=== PATIENT | female | born 1940 | race Caucasian/White ===

== ENCOUNTER → 2017-05-23 | Outpatient (CLI) | payer MEDICARE ==
--- NOTE | 2017-05-23 13:27 | US ---
EXAMINATION TYPE: US thyroid st tissue head/neck DATE OF EXAM: 05/23/2017 COMPARISON: NONE CLINICAL HISTORY: E04.1 Thyroid Nodule. Thyroid nodule visualized on recent Carotid ultrasound GLAND SIZE: Right Lobe: 4.8 x 2.2 x 1.9 cm Overall Parenchyma: heterogenous Left Lobe: 3.6 x 1.6 x 1.5 cm Overall Parenchyma: heterogeneous Isthmus Thickness: 0.3 cm NODULES RIGHT: # of nodules measured on right: 3 1. 0.7 X 0.4 x 0.7 cm mixed nodule at the upper pole with well-defined margins; . This nodule is w ider than tall and shows intranodular vascularity. Prior size: no prior 2. 0.6 X 0.3 x 0.6 cm hypoechoic solid nodule at the upper pole with well-defined margins; . This n odule is wider than tall and shows intranodular vascularity. Prior size: no prior 3. 0.7 X 0.6 x 0.7 cm complex cystic nodule at the lower pole with well-defined margins; . This nod ule is wider than tall and shows no intranodular vascularity. Prior size: no prior LEFT: # of nodules measured on left: 2 1. 0.6 X 0.4 x 0.5 cm complex cystic nodule at the medial/mid pole with well-defined margins; . Th is nodule is wider than tall and shows no intranodular vascularity. Prior size: no prior 2. 1.1 X 0.7 x 0.9 cm hypoechoic solid nodule at the mid pole with well-defined margins; . This nod ule is wider than tall and shows intranodular vascularity. Prior size: no prior ISTHMUS: # of nodules measured in the isthmus: 0 Technical limitations, patient unable to lie flat, exam performed with patient upright IMPRESSION: . Multiple nodules noted bilaterally, largest 3 measured on right and largest 2 measured on the left.
== END | disposition home or self-care (01) ==
LOC: RADUSWWP 12:01
PROVIDERS: ATTEND Family Medicine
DX: E04.2 Nontoxic multinodular goiter (principal)
CPT/HCPCS: 76536

== ENCOUNTER 2018-08-07 20:38 | Inpatient (IN) | payer MEDICARE ==
[2018-08-07] MEDS ORDERED: DILTIAZEM DRIP BOLUS FROM BAG 1 MG SOLN IV ONE ×2 (20:39→22:12)
[2018-08-07] MEDS ORDERED: SODIUM CHLORIDE 0.9% 1,000 ML IV STA (20:39)
[2018-08-07] MEDS: DILTIAZEM 125 MG in SODIUM CHLORIDE 0.9% 100 ML IV SCH (21:13)
[2018-08-07 21:18] LABS: Ionized Calcium 5.1 mg/dL (4.5-5.3)
[2018-08-07 21:19] LABS: Basophils % (A) 0 %; Eosinophils # (A) 0.2 k/uL (0-0.7); Eosinophils % (A) 2 %; HGB 13.8 gm/dL (11.4-16.0); Hypochromasia Slight; Lymphocytes # (A) 0.8 k/uL (1.0-4.8); Lymphocytes % (A) 6 %; MCHC 32.1 g/dL (31.0-37.0); MCV 90.4 fL (80.0-100.0); Mean Platelet Volume 9.1; Monocytes # (A) 0.4 k/uL (0-1.0); Monocytes % (A) 3 %; Neutrophils # (A) 11.8 k/uL (1.3-7.7); Neutrophils % (A) 88 %; Platelet Count 232 k/uL (150-450); RBC 4.76 m/uL (3.80-5.40); RDW 14.9 % (11.5-15.5); WBC 13.4 k/uL (3.8-10.6)
[2018-08-07 21:21] LABS: Appearance,Urine Cloudy (Clear); Bacteria,Urine Rare /hpf; Bilirubin,Urine Negative (Negative); Blood,Urine Moderate (Negative); Color,Urine Yellow; Glucose,Urine (UA) Negative (Negative); Ketones,Urine Negative (Negative); Leukocyte Esterase,Urine Moderate (Negative); Mucus,Urine Rare /hpf; Nitrite,Urine Negative (Negative); PH, Urine 7.5 (5.0-8.0); Protein,Urine 2+ (Negative); RBC,Urine >182 /hpf (0-5); Specific Gravity,Urine 1.018 (1.001-1.035); Squamous Epithelial Cell,Urine 6 /hpf (0-4); Urobilinogen,Urine <2.0 mg/dL (<2.0); WBC,Urine 25 /hpf (0-5)
[2018-08-07 21:27] LABS: Albumin 3.9 g/dL (3.5-5.0); Calcium 9.9 mg/dL (8.4-10.2); Magnesium 1.3 mg/dL (1.6-2.3); Phosphorus 3.5 mg/dL (2.5-4.5); Potassium 5.6 mmol/L (3.5-5.1); Total Bilirubin 1.1 mg/dL (0.2-1.3); Total Protein 7.3 g/dL (6.3-8.2)
[2018-08-07 21:31] LABS: INR 2.2 (<1.2); Partial Thromboplastin Time 27.4 sec (22.0-30.0); Prothrombin Time 21.3 sec (9.0-12.0)
--- NOTE | 2018-08-07 21:35 | ED ---
SOB HPI - General Chief Complaint: Shortness of Breath Stated Complaint: Difficulty breathing Time Seen by Provider: 08/07/18 20:38 Source: patient, EMS, RN notes reviewed, old records reviewed Mode of arrival: EMS - History of Present Illness Initial Comments: This is a 78-year-old female the ER for evaluation. Patient does say for evaluation regarding elevated heart rate. Shortness of breath. Patient is in nature fibrillation. Patient has no chest pain, no travel history. Patient is on current anticoagulation. Patient denies any fever. No significant cough. No congestion. MD Complaint: shortness of breath, anxiety -: days(s) Severity: moderate Consistency: constant Improves With: nothing Worsens With: nothing Associated Symptoms: palpitations Treatments Prior to Arrival: none - Related Data Home Medications Medication Instructions Recorded Confirmed Carvedilol [Coreg] 25 mg PO BID 05/08/17 08/07/18 Cholecalciferol [Vitamin D3] 5,000 unit PO DAILY 05/08/17 08/07/18 Ferrous Sulfate [Iron (65 MG 325 mg PO DAILY 05/08/17 08/07/18 Elemental)] Lisinopril [Zestril] 5 mg PO DAILY 05/08/17 08/07/18 Magnesium Oxide [Mag-Ox] 250 mg PO DAILY 05/08/17 08/07/18 Vitamin E (Dl,Tocopheryl Acet) 400 unit PO DAILY 05/08/17 08/07/18 [Vitamin E] Warfarin [Coumadin] 6 mg PO MOTUWEFRSA 05/08/17 08/07/18 Warfarin [Coumadin] 9 mg PO SUTH 05/08/17 08/07/18 glipiZIDE [Glucotrol] 10 mg PO QAM 05/08/17 08/07/18 metFORMIN HCL [Glucophage] 500 mg PO BID 05/08/17 08/07/18 Ascorbic Acid [Vitamin C] 500 mg PO DAILY 08/07/18 08/07/18 Calcium Carbonate [Calcium] 600 mg PO DAILY 08/07/18 08/07/18 Cranberry Concentrate 168 mg PO BID 08/07/18 08/07/18 Cyanocobalamin [Vitamin B-12] 500 mcg PO DAILY 08/07/18 08/07/18 Diltiazem HCl [Cartia Xt] 120 mg PO DAILY 08/07/18 08/07/18 Insulin Detemir (Levemir) [Levemir] 13 unit SQ HS 08/07/18 08/07/18 Previous Rx's Medication Instructions Recorded Atorvastatin [Lipitor] 10 mg PO HS tab 05/11/17 Allergies Allergy/AdvReac Type Severity Reaction Status Date / Time influenza virus vaccine qs Allergy Unknown Unknown Verified 08/07/18 21:14 2017- (36 months up) [From Fluarix Quad 5355-9780 (PF)] aspirin Allergy Unknown Verified 08/07/18 21:14 Penicillins Allergy Rash/Hives Verified 08/07/18 21:14 red dye Allergy Unknown Verified 08/07/18 21:14 Review of Systems ROS Statement: Those systems with pertinent positive or pertinent negative responses have been documented in the HPI. ROS Other: All systems not noted in ROS Statement are negative. Past Medical History Past Medical History: Atrial Fibrillation, CVA/TIA, Hypertension Additional Past Medical History / Comment(s): Stroke x 2- History of Any Multi-Drug Resistant Organisms: None Reported Past Surgical History: Appendectomy, Orthopedic Surgery, Tonsillectomy Additional Past Surgical History / Comment(s): pt. states shes had two knee surgeries Past Anesthesia/Blood Transfusion Reactions: No Reported Reaction Past Psychological History: Depression Smoking Status: Never smoker Past Alcohol Use History: None Reported Past Drug Use History: None Reported - Past Family History Son(s) Family Medical History: Myocardial Infarction ([place]) General Exam General appearance: alert, anxious Head exam: Present: atraumatic, normocephalic, normal inspection Eye exam: Present: normal appearance, PERRL, EOMI. Absent: scleral icterus, conjunctival injection, periorbital swelling ENT exam: Present: normal exam, mucous membranes moist Neck exam: Present: normal inspection. Absent: tenderness, meningismus, lymphadenopathy Respiratory exam: Present: normal lung sounds bilaterally. Absent: respiratory distress, wheezes, rales, rhonchi, stridor Cardiovascular Exam: Present: tachycardia, irregular rhythm, normal heart sound s. Absent: systolic murmur, diastolic murmur, rubs, gallop, clicks GI/Abdominal exam: Present: soft, normal bowel sounds. Absent: distended, tenderness, guarding, rebound, rigid Extremities exam: Present: normal inspection, full ROM, normal capillary refill. Absent: tenderness, pedal edema, joint swelling, calf tenderness Back exam: Present: normal inspection Neurological exam: Present: alert, oriented X3, CN II-XII intact Psychiatric exam: Present: normal affect, normal mood Skin exam: Present: warm, dry, intact, normal color. Absent: rash Course Vital Signs 08/07/18 20:39 Temperature 98.4 F Pulse Rate 137 H Respiratory 20 Rate Blood Pressure 128/98 O2 Sat by Pulse 95 Oximetry - Reevaluation(s) Reevaluation #1: 08/07/18 22:14 Medical record reviewed Reevaluation #2: 08/07/18 22:14 Mild improvement with medication, slowly improving heart rate Medical Decision Making - Medical Decision Making 69 female the ER for evaluation positive nature for ablation with RVR, rate is improved. Patient be admitted for further rate cardiopulmonary sensation monitor - Lab Data Result diagrams: 08/07/18 21:00 08/07/18 21:00 Lab Results 08/07/18 08/07/18 08/07/18 Range/Units 21:00 21:00 21:00 WBC 13.4 H (3.8-10.6) k/uL RBC 4.76 (3.80-5.40) m/uL Hgb 13.8 (11.4-16.0) gm/dL Hct 43.0 (34.0-46.0) % MCV 90.4 (80.0-100.0) fL MCH 29.0 (25.0-35.0) pg MCHC 32.1 (31.0-37.0) g/dL RDW 14.9 (11.5-15.5) % Plt Count 232 (150-450) k/uL Neutrophils % 88 % Lymphocytes % 6 % Monocytes % 3 % Eosinophils % 2 % Basophils % 0 % Neutrophils # 11.8 H (1.3-7.7) k/uL Lymphocytes # 0.8 L (1.0-4.8) k/uL Monocytes # 0.4 (0-1.0) k/uL Eosinophils # 0.2 (0-0.7) k/uL Basophils # 0.0 (0-0.2) k/uL Hypochromasia Slight PT (9.0-12.0) sec INR (<1.2) APTT (22.0-30.0) sec Sodium 138 (137-145) mmol/L Potassium 5.6 H (3.5-5.1) mmol/L Chloride 102 (98-107) mmol/L Carbon Dioxide 25 (22-30) mmol/L Anion Gap 11 mmol/L BUN 21 H (7-17) mg/dL Creatinine 0.93 (0.52-1.04) mg/dL Est GFR (CKD-EPI)AfAm 68 (>60 ml/min/1.73 sqM) Est GFR (CKD-EPI)NonAf 59 (>60 ml/min/1.73 sqM) Glucose 300 H (74-99) mg/dL Plasma Lactic Acid Giancarlo 2.1 H* (0.7-2.0) mmol/L Calcium 9.9 (8.4-10.2) mg/dL Ionized Calcium [place] 5.1 (4.5-5.3) mg/dL Phosphorus 3.5 (2.5-4.5) mg/dL Magnesium 1.3 L (1.6-2.3) mg/dL Total Bilirubin 1.1 (0.2-1.3) mg/dL AST 17 (14-36) U/L ALT 17 (9-52) U/L Alkaline Phosphatase 85 (38-126) U/L Troponin I (0.000-0.034) ng/mL Total Protein 7.3 (6.3-8.2) g/dL Albumin 3.9 (3.5-5.0) g/dL Urine Color Urine Appearance (Clear) Urine pH (5.0-8.0) Ur Specific [place] (1.001-1.035) Urine Protein (Negative) Urine Glucose (UA) (Negative) Urine Ketones (Negative) Urine Blood (Negative) Urine Nitrite (Negative) Urine Bilirubin (Negative) Urine Urobilinogen (<2.0) mg/dL Ur Leukocyte Esterase (Negative) Urine RBC (0-5) /hpf Urine WBC (0-5) /hpf Ur Squamous Epith Cells (0-4) /hpf Urine Bacteria (None) /hpf Urine Mucus (None) /hpf 08/07/18 08/07/18 08/07/18 Range/Units 21:00 21:00 21:05 WBC (3.8-10.6) k/uL RBC (3.80-5.40) m/uL Hgb (11.4-16.0) gm/dL Hct (34.0-46.0) % MCV (80.0-100.0) fL MCH (25.0-35.0) pg MCHC (31.0-37.0) g/dL RDW (11.5-15.5) % Plt Count (150-450) k/uL Neutrophils % % Lymphocytes % % Monocytes % % Eosinophils % % Basophils % % Neutrophils # (1.3-7.7) k/uL Lymphocytes # (1.0-4.8) k/uL Monocytes # (0-1.0) k/uL Eosinophils # (0-0.7) k/uL Basophils # (0-0.2) k/uL Hypochromasia PT 21.3 H (9.0-12.0) sec INR 2.2 H (<1.2) APTT 27.4 (22.0-30.0) sec Sodium (137-145) mmol/L Potassium (3.5-5.1) mmol/L Chloride (98-107) mmol/L Carbon Dioxide (22-30) mmol/L Anion Gap mmol/L BUN (7-17) mg/dL Creatinine (0.52-1.04) mg/dL Est GFR (CKD-EPI)AfAm (>60 ml/min/1.73 sqM) Est GFR (CKD-EPI)NonAf (>60 ml/min/1.73 sqM) Glucose (74-99) mg/dL Plasma Lactic Acid Giancarlo (0.7-2.0) mmol/L Calcium (8.4-10.2) mg/dL Ionized Calcium [place] (4.5-5.3) mg/dL Phosphorus (2.5-4.5) mg/dL Magnesium (1.6-2.3) mg/dL Total Bilirubin (0.2-1.3) mg/dL AST (14-36) U/L ALT (9-52) U/L Alkaline Phosphatase (38-126) U/L Troponin I 0.018 (0.000-0.034) ng/mL Total Protein (6.3-8.2) g/dL Albumin (3.5-5.0) g/dL Urine Color Yellow Urine Appearance Cloudy H (Clear) Urine pH 7.5 (5.0-8.0) Ur Specific [place] 1.018 (1.001-1.035) Urine Protein 2+ H (Negative) Urine Glucose (UA) Negative (Negative) Urine Ketones Negative (Negative) Urine Blood Moderate H (Negative) Urine Nitrite Negative (Negative) Urine Bilirubin Negative (Negative) Urine Urobilinogen <2.0 (<2.0) mg/dL Ur Leukocyte Esterase Moderate H (Negative) Urine RBC >182 H (0-5) /hpf Urine WBC 25 H (0-5) /hpf Ur Squamous Epith Cells 6 H (0-4) /hpf Urine Bacteria Rare H (None) /hpf Urine Mucus Rare H (None) /hpf - EKG Data -: EKG Interpreted by Me (EKG shows A. fib with RVR rate 139, QRS 120, QTC 523) Critical Care Time Critical Care Time: Yes Total Critical Care Time: 31 Disposition Clinical Impression: Atrial fibrillation, Atrial fibrillation with RVR Disposition: ADMITTED IP TO THIS HOSP Condition: Undetermined Is patient prescribed a controlled substance at d/c from ED?: No Referrals: Miranda Thompson MD [Primary Care Provider] - 1-2 days
[2018-08-07] MEDS ORDERED: NITROGLYCERIN SL TABS 0.4 MG TAB SUBLINGUAL PRN (22:12)
[2018-08-07 23:59] LABS: Glucose,Whole Blood 298 mg/dL (75-99)
[2018-08-08] MEDS: MAGNESIUM SULFATE-D5W PMX 1 GM in DEXTROSE/WATER 1 100ML.BAG IVPB SCH ×4 (01:13→06:51)
[2018-08-08 04:54] LABS: Cholesterol 122 mg/dL (<200); HDL Cholesterol 40 mg/dL (40-60); LDL Cholesterol,Calculated 67 mg/dL (0-99); Triglycerides 75 mg/dL (<150)
[2018-08-08 06:05] LABS: Glucose,Whole Blood 213 mg/dL (75-99)
[2018-08-08] MEDS ORDERED: ASPIRIN 325 MG TAB PO SCH (09:00)
--- NOTE | 2018-08-08 09:02 | XR ---
EXAMINATION TYPE: XR chest 2V DATE OF EXAM: 08/08/2018 COMPARISON: 05/08/2017 TECHNIQUE: PA and lateral views submitted. HISTORY: Shortness of breath FINDINGS: Heart is enlarged and is left lower lobe consolidation and small effusion. Biapical pleural thickenin g. Interstitial prominence noted. Atherosclerotic change aorta. Diffuse osteopenia with arthropathy o f the shoulders. Calcification along the left humeral head likely secondary to calcific tendinosis. H ypertrophic and degenerative change of the spine. IMPRESSION: 1. Cardiomegaly with left lower lobe infiltrate and small effusion. Findings appear to be superimpose d on a background of COPD. Mild chronic interstitial lung disease or venous congestion not excluded.
[2018-08-08 09:13] LABS: INR 1.9 (<1.2); Prothrombin Time 18.9 sec (9.0-12.0)
[2018-08-08] MEDS: VITAMIN E (DL,TOCOPHERYL ACET) 400 UNIT CAP PO SCH (09:20)
[2018-08-08 09:33] LABS: Basophils % (A) 0 %; Eosinophils # (A) 0.1 k/uL (0-0.7); Eosinophils % (A) 1 %; HCT 32.7 % (34.0-46.0); Lymphocytes # (A) 1.4 k/uL (1.0-4.8); Lymphocytes % (A) 9 %; MCH 28.8 pg (25.0-35.0); MCHC 32.4 g/dL (31.0-37.0); MCV 88.7 fL (80.0-100.0); Mean Platelet Volume 10.3; Monocytes # (A) 0.9 k/uL (0-1.0); Monocytes % (A) 6 %; Neutrophils # (A) 13.2 k/uL (1.3-7.7); Neutrophils % (A) 84 %; Platelet Count 249 k/uL (150-450); RBC 3.68 m/uL (3.80-5.40); RDW 14.6 % (11.5-15.5); WBC 15.7 k/uL (3.8-10.6)
[2018-08-08 09:35] LABS: HGB 10.6 gm/dL (11.4-16.0)
[2018-08-08 09:52] LABS: Albumin 3.7 g/dL (3.5-5.0); Calcium 9.4 mg/dL (8.4-10.2); Magnesium 2.5 mg/dL (1.6-2.3); Potassium 5.5 mmol/L (3.5-5.1); Total Bilirubin 1.4 mg/dL (0.2-1.3); Total Protein 6.7 g/dL (6.3-8.2)
[2018-08-08 11:33] LABS: Glucose,Whole Blood 239 mg/dL (75-99)
[2018-08-08] MEDS ORDERED: SODIUM POLYSTYRENE SULFONATE 15 GM/60 ML BOTTLE PO STA (11:41)
--- NOTE | 2018-08-08 12:03 | P.CRDCN ---
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 She denied any frequency or dysuria. Denied any chest discomfort. EKG on arrival here showed atrial fibrillation with a rapid ventricular response. Chest x-ray showed cardiomegaly with left lower lobe infiltrate and small effusion. Findings appear to be superimposed on the background of COPD. Mild chronic interstitial lung disease or venous congestion not excluded. Blood pressure on arrival here 128/98, heart rate 1:30, 95% on 2 L of oxygen. I pressure this morning 128/90 with a heart rate in the low 100s, 95% on room air. White blood cell count up to 15.7, hemoglobin 10.6, 13.8 on admission, INR 2.2 on admission, 1.9 this morning. Sodium 137, potassium 5.5, BUN 22 and creatinine 0.8. Plasma lactic acid elevated at 2.5, total bilirubin 1.4 magnesium 1.3 on admission, 2.5 this morning. Initial troponin 0.018, subsequent troponins 0.072 and 0.075. Urinalysis does show evidence of a UTI. At the time of my examination this morning, patient feels well, she states that she has no further shortness of breath, no palpitations or chest discomfort. Past Medical History Past Medical History: Atrial Fibrillation, CVA/TIA, Hypertension Additional Past Medical History / Comment(s): Stroke x 2- History of Any Multi-Drug Resistant Organisms: None Reported Past Surgical History: Appendectomy, Cholecystectomy, Orthopedic Surgery, Tonsillectomy Additional Past Surgical History / Comment(s): pt. states shes had two knee surgeries Past Anesthesia/Blood Transfusion Reactions: No Reported Reaction Past Psychological History: Depression Additional Psychological History / Comment(s): pt. states she had depression after her , pt. states the depression is no longer an issue Smoking Status: Never smoker Past Alcohol Use History: None Reported Past Drug Use History: None Reported - Past Family History Son(s) Family Medical History: Myocardial Infarction ([place]) Medications and Allergies Home Medications Medication Instructions Recorded Confirmed Type Carvedilol [Coreg] 25 mg PO BID 05/08/17 08/07/18 History Cholecalciferol [Vitamin D3] 5,000 unit PO DAILY 05/08/17 08/07/18 History Ferrous Sulfate [Iron (65 MG 325 mg PO DAILY 05/08/17 08/07/18 History Elemental)] Lisinopril [Zestril] 5 mg PO DAILY 05/08/17 08/07/18 History Magnesium Oxide [Mag-Ox] 250 mg PO DAILY 05/08/17 08/07/18 History Vitamin E (Dl,Tocopheryl Acet) 400 unit PO DAILY 05/08/17 08/07/18 History [Vitamin E] Warfarin [Coumadin] 6 mg PO MOTUWEFRSA 05/08/17 08/07/18 History Warfarin [Coumadin] 9 mg PO SUTH 05/08/17 08/07/18 History glipiZIDE [Glucotrol] 10 mg PO QAM 05/08/17 08/07/18 History metFORMIN HCL [Glucophage] 500 mg PO BID 05/08/17 08/07/18 History Atorvastatin [Lipitor] 10 mg PO HS tab 05/11/17 08/07/18 Rx Ascorbic Acid [Vitamin C] 500 mg PO DAILY 08/07/18 08/07/18 History Calcium Carbonate [Calcium] 600 mg PO DAILY 08/07/18 08/07/18 History Cranberry Concentrate 168 mg PO BID 08/07/18 08/07/18 History Cyanocobalamin [Vitamin B-12] 500 mcg PO DAILY 08/07/18 08/07/18 History Diltiazem HCl [Cartia Xt] 120 mg PO DAILY 08/07/18 08/07/18 History Insulin Detemir (Levemir) [Levemir] 13 unit SQ HS 08/07/18 08/07/18 History Allergies Allergy/AdvReac Type Severity Reaction Status Date / Time influenza virus vaccine qs Allergy Unknown Unknown Verified 08/07/18 21:14 2016- (36 months up) [From Fluarix Quad 4842-9030 (PF)] aspirin Allergy Unknown Verified 08/07/18 21:14 Penicillins Allergy Rash/Hives Verified 08/07/18 21:14 red dye Allergy Unknown Verified 08/07/18 21:14 Physical Exam Vitals: Vital Signs Temp Pulse Pulse Resp BP BP Pulse Ox 08/08/18 11:25 97.2 F L 105 H 18 128/95 95 08/08/18 08:00 97.1 F L 107 H 18 136/62 97 08/08/18 06:06 98.6 F 77 18 133/73 93 L 08/07/18 23:31 98.3 F 107 H 20 142/67 93 L 08/07/18 23:25 98.3 F 107 H 18 142/67 93 L 08/07/18 23:13 101 H 20 152/87 98 08/07/18 22:42 101 H 20 141/69 96 08/07/18 20:39 98.4 F 137 H 20 128/98 95 Intake and Output 08/07/18 08/08/18 08/08/18 22:59 06:59 14:59 Intake Total 240 Balance 240 Intake: Oral 240 Other: # Voids 1 Weight 81.647 kg 90.1 kg PHYSICAL EXAMINATION: GENERAL: 78-year-old female in no acute distress at the time of my examination HEENT: Head is atraumatic, normocephalic. Pupils equal, round. Sclera anicteric. Conjunctiva are clear. Mucous membranes of the mouth are moist. Neck is supple. There is no elevated jugular venous pressure. No carotid bruit is heard. HEART EXAMINATION: Heart S1 and S2 irregularly irregular a systolic murmur is heard CHEST EXAMINATION: And's reveal diminished air entry to bilateral bases. ABDOMEN: Soft, nontender. Bowel sounds are heard. No organomegaly noted. EXTREMITIES: 2+ peripheral pulses with trace evidence of peripheral edema and no calf tenderness noted. NEUROLOGIC patient is awake, alert and oriented 3. . Results 08/08/18 08:26 08/08/18 08:26 Cardiac Enzymes 08/07/18 08/07/18 08/08/18 Range/Units 21:00 21:00 03:55 AST 17 (14-36) U/L Troponin I 0.018 0.072 H* (0.000-0.034) ng/mL 08/08/18 08/08/18 Range/Units 08:26 08:26 AST 17 (14-36) U/L Troponin I 0.075 H* (0.000-0.034) ng/mL Coagulation 08/07/18 08/08/18 Range/Units 21:00 08:26 PT 21.3 H 18.9 H (9.0-12.0) sec APTT 27.4 (22.0-30.0) sec Lipids 08/08/18 Range/Units 03:55 Triglycerides 75 (<150) mg/dL Cholesterol 122 (<200) mg/dL HDL Cholesterol 40 (40-60) mg/dL CBC 08/07/18 08/08/18 Range/Units 21:00 08:26 WBC 13.4 H 15.7 H (3.8-10.6) k/uL RBC 4.76 3.68 L (3.80-5.40) m/uL Hgb 13.8 10.6 L D (11.4-16.0) gm/dL Hct 43.0 32.7 L (34.0-46.0) % Plt Count 232 249 (150-450) k/uL Comprehensive Metabolic Panel 08/07/18 08/08/18 Range/Units 21:00 08:26 Sodium 138 137 (137-145) mmol/L Potassium 5.6 H 5.5 H (3.5-5.1) mmol/L Chloride 102 103 (98-107) mmol/L Carbon Dioxide 25 22 (22-30) mmol/L BUN 21 H 22 H (7-17) mg/dL Creatinine 0.93 0.85 (0.52-1.04) mg/dL Glucose 300 H 256 H (74-99) mg/dL Calcium 9.9 9.4 (8.4-10.2) mg/dL AST 17 17 (14-36) U/L ALT 17 22 (9-52) U/L Alkaline Phosphatase 85 68 (38-126) U/L Total Protein 7.3 6.7 (6.3-8.2) g/dL Albumin 3.9 3.7 (3.5-5.0) g/dL Current Medications Generic Name Dose Route Start Last Admin Trade Name Freq PRN Reason Stop Dose Admin Atorvastatin Calcium 10 mg 08/08/18 21:00 Lipitor PO HS JANEEN Diltiazem HCl 125 mg/ Sodium 125 mls @ 5 mls/hr 08/07/18 20:45 08/07/18 21:13 Chloride IV 5 mg/hr .Q24H JANEEN 5 mls/hr Administration 5 MG/HR Insulin Aspart 0 unit 08/08/18 12:30 Novolog SQ ACHS [facility] Protocol Insulin Detemir 13 unit 08/08/18 21:00 Levemir SQ HS JANEEN Nitroglycerin 0.4 mg 08/07/18 22:12 Nitrostat SUBLINGUAL Q5M PRN Chest Pain Vitamin E 400 unit 08/08/18 09:00 08/08/18 09:20 Vitamin E PO 400 unit DAILY JANEEN Administration Warfarin Sodium 6 mg 08/09/18 18:00 Coumadin PO [id number]@1800 JANEEN Warfarin Sodium 9 mg 08/08/18 18:00 Coumadin PO SuTh@1800 [facility] Intake and Output 08/07/18 08/08/18 08/08/18 22:59 06:59 14:59 Intake Total 240 Balance 240 Intake: Oral 240 Other: # Voids 1 Weight 81.647 kg 90.1 kg 08/08/18 08:26 08/08/18 08:26 EKG Interpretations (text) EKG shows atrial fibrillation with a rapid ventricular response Assessment and Plan Plan: Assessment and plan #1 symptoms of fairly sudden onset of weakness with associated shortness of breath. #2 atrial fibrillation with rapid ventricular response on Coumadin for anticoagulation, chronic persistent #2 positive UTI with sepsis, antibiotics initiated #3 abnormal troponin, likely secondary to A. fib with RVR or sepsis #4 history of CVA #5 hypertension #6 hyperlipidemia #7 diabetes, blood sugar 298 on admission. #8 hyperkalemia Plan Will obtain an echocardiogram with Doppler study. Patient's most recent echo here was performed in 2017 which revealed an ejection fraction at that time of 45-50%, mild to moderate mitral regurgitation. We will resume the patient's beta angela, oral Cardizem, increasing the dose to 180 daily, then discontinue the Cardizem drip. Zestril is currently on hold because of the hyperkalemia. Continue Coumadin to maintain an INR in the range of 2-2.5. Check free T4 and TSH level. DNP note has been reviewed, I agree with a documented findings and plan of care. Patient was seen and examined.
[2018-08-08] MEDS: CARVEDILOL 12.5 MG TAB PO SCH ×2 (12:32→18:25)
[2018-08-08] MEDS: INSULIN ASPART (NovoLOG) 100 UNIT/ML VIAL SQ SCH ×3 (12:35→20:37)
[2018-08-08] MEDS: DILTIAZEM CD 180 MG CAP.ER.24H PO SCH (12:39)
[2018-08-08] MEDS ORDERED: LEVOFLOXACIN 500MG-D5W PMX 500 MG in DEXTROSE/WATER 1 100ML.BAG IVPB SCH (13:00)
[2018-08-08] MEDS ORDERED: ONDANSETRON 4 MG/2 ML VIAL IVP PRN (13:29)
[2018-08-08] MEDS ORDERED: ACETAMINOPHEN TAB 325 MG TAB PO PRN (13:29)
--- NOTE | 2018-08-08 13:31 | P.HPIM ---
History of Present Illness H&P Date: 08/08/18 This is a 78-year-old female patient of Dr. Thompson. Patient presented to ER with complaints of increased shortness of breath and a feeling of her heart racing. She reports symptoms started after dinner yesterday. Patient does have a known past medical atrial fibrillation in which she is on Coumadin. Additional medical history includes CVA 2 hypertension and depression. EKG completed in ER showing atrial fibrillation with rapid ventricular response. Patient started on Cardizem drip and cardiology services have been consulted. Chest x-ray completed in ER showing cardiomegaly with left lower lobe infiltrate and small effusion. Findings appear to be superimposed on a background COPD. M ild chronic interstitial lung disease or venous congestion not excluded. UA positive for leukocyte esterase. Patient with blood cell elevated at 15.7 and lactic acid 2.5. Will start patient on Levaquin. Pulmonary service is consulted for possible pneumonia. Blood and urine cultures ordered. Influenza ordered. Potassium also elevated at 5.5 Kayexalate ordered recheck today at 1500. At this time patient is resting comfortably in bed. Patient denies chest pain or shortness of breath. Patient denies nausea vomiting or diarrhea. Patient denies any urinary burning or frequency. Patient does report she chronically does wake up to go to the bathroom quite frequently but this has been an ongoing issue. Review of Systems Please refer to HPI otherwise unremarkable Past Medical History Past Medical History: Atrial Fibrillation, CVA/TIA, Hypertension Additional Past Medical History / Comment(s): Stroke x 2- History of Any Multi-Drug Resistant Organisms: None Reported Past Surgical History: Appendectomy, Cholecystectomy, Orthopedic Surgery, T onsillectomy Additional Past Surgical History / Comment(s): pt. states shes had two knee surgeries Past Anesthesia/Blood Transfusion Reactions: No Reported Reaction Past Psychological History: Depression Additional Psychological History / Comment(s): pt. states she had depression after her , pt. states the depression is no longer an issue Smoking Status: Never smoker Past Alcohol Use History: None Reported Past Drug Use History: None Reported - Past Family History Son(s) Family Medical History: Myocardial Infarction ([place]) Medications and Allergies Home Medications Medication Instructions Recorded Confirmed Type Carvedilol [Coreg] 25 mg PO BID 05/08/17 08/07/18 History Cholecalciferol [Vitamin D3] 5,000 unit PO DAILY 05/08/17 08/07/18 History Ferrous Sulfate [Iron (65 MG 325 mg PO DAILY 05/08/17 08/07/18 History Elemental)] Lisinopril [Zestril] 5 mg PO DAILY 05/08/17 08/07/18 History Magnesium Oxide [Mag-Ox] 250 mg PO DAILY 05/08/17 08/07/18 History Vitamin E (Dl,Tocopheryl Acet) 400 unit PO DAILY 05/08/17 08/07/18 History [Vitamin E] Warfarin [Coumadin] 6 mg PO MOTUWEFRSA 05/08/17 08/07/18 History Warfarin [Coumadin] 9 mg PO SUTH 05/08/17 08/07/18 History glipiZIDE [Glucotrol] 10 mg PO QAM 05/08/17 08/07/18 History metFORMIN HCL [Glucophage] 500 mg PO BID 05/08/17 08/07/18 History Atorvastatin [Lipitor] 10 mg PO HS tab 05/11/17 08/07/18 Rx Ascorbic Acid [Vitamin C] 500 mg PO DAILY 08/07/18 08/07/18 History Calcium Carbonate [Calcium] 600 mg PO DAILY 08/07/18 08/07/18 History Cranberry Concentrate 168 mg PO BID 08/07/18 08/07/18 History Cyanocobalamin [Vitamin B-12] 500 mcg PO DAILY 08/07/18 08/07/18 History Diltiazem HCl [Cartia Xt] 120 mg PO DAILY 08/07/18 08/07/18 History Insulin Detemir (Levemir) [Levemir] 13 unit SQ HS 08/07/18 08/07/18 History Allergies Allergy/AdvReac Type Severity Reaction Status Date / Time influenza virus vaccine qs Allergy Unknown Unknown Verified 08/07/18 21:14 2016- (36 months up) [From Fluarix Quad 8701-1448 (PF)] aspirin Allergy Unknown Verified 08/07/18 21:14 Penicillins Allergy Rash/Hives Verified 08/07/18 21:14 red dye Allergy Unknown Verified 08/07/18 21:14 Physical Exam Vitals: Vital Signs Temp Pulse Pulse Resp BP BP Pulse Ox 08/08/18 11:25 97.2 F L 105 H 18 128/95 95 08/08/18 08:00 97.1 F L 107 H 18 136/62 97 08/08/18 06:06 98.6 F 77 18 133/73 93 L 08/07/18 23:31 98.3 F 107 H 20 142/67 93 L 08/07/18 23:25 98.3 F 107 H 18 142/67 93 L 08/07/18 23:13 101 H 20 152/87 98 08/07/18 22:42 101 H 20 141/69 96 08/07/18 20:39 98.4 F 137 H 20 128/98 95 Intake and Output 08/07/18 08/08/18 08/08/18 22:59 06:59 14:59 Intake Total 240 Balance 240 Intake: Oral 240 Other: # Voids 1 1 Weight 81.647 kg 90.1 kg Head normocephalic Neck supple Lungs clear to auscultation bilaterally no wheezing or crackles Heart irregular rate and rhythm S1-S2, no rub or gallop Abdomen is soft nontender nondistended positive bowel sounds no hepa tosplenomegaly Extremities no edema Neuro alert and orientated to 3 Results CBC & Chem 7: 08/08/18 08:26 08/08/18 08:26 Labs: Abnormal Lab Results - Last 24 Hours (Table) 08/07/18 08/07/18 08/07/18 Range/Units 21:00 21:00 21:00 WBC 13.4 H (3.8-10.6) k/uL RBC (3.80-5.40) m/uL Hgb (11.4-16.0) gm/dL Hct (34.0-46.0) % Neutrophils # 11.8 H (1.3-7.7) k/uL Lymphocytes # 0.8 L (1.0-4.8) k/uL PT (9.0-12.0) sec INR (<1.2) Potassium 5.6 H (3.5-5.1) mmol/L BUN 21 H (7-17) mg/dL Glucose 300 H (74-99) mg/dL POC Glucose (mg/dL) (75-99) mg/dL Plasma Lactic Acid Giancarlo 2.1 H* (0.7-2.0) mmol/L Magnesium 1.3 L (1.6-2.3) mg/dL Total Bilirubin (0.2-1.3) mg/dL Troponin I (0.000-0.034) ng/mL Urine Appearance (Clear) Urine Protein (Negative) Urine Blood (Negative) Ur Leukocyte Esterase (Negative) Urine RBC (0-5) /hpf Urine WBC (0-5) /hpf Ur Squamous Epith Cells (0-4) /hpf Urine Bacteria (None) /hpf Urine Mucus (None) /hpf 08/07/18 08/07/18 08/07/18 Range/Units 21:00 21:05 23:58 WBC (3.8-10.6) k/uL RBC (3.80-5.40) m/uL Hgb (11.4-16.0) gm/dL Hct (34.0-46.0) % Neutrophils # (1.3-7.7) k/uL Lymphocytes # (1.0-4.8) k/uL PT 21.3 H (9.0-12.0) sec INR 2.2 H (<1.2) Potassium (3.5-5.1) mmol/L BUN (7-17) mg/dL Glucose (74-99) mg/dL POC Glucose (mg/dL) 298 H (75-99) mg/dL Plasma Lactic Acid Giancarlo (0.7-2.0) mmol/L Magnesium (1.6-2.3) mg/dL Total Bilirubin (0.2-1.3) mg/dL Troponin I (0.000-0.034) ng/mL Urine Appearance Cloudy H (Clear) Urine Protein 2+ H (Negative) Urine Blood Moderate H (Negative) Ur Leukocyte Esterase Moderate H (Negative) Urine RBC >182 H (0-5) /hpf Urine WBC 25 H (0-5) /hpf Ur Squamous Epith Cells 6 H (0-4) /hpf Urine Bacteria Rare H (None) /hpf Urine Mucus Rare H (None) /hpf 08/08/18 08/08/18 08/08/18 Range/Units 00:46 03:55 06:02 WBC (3.8-10.6) k/uL RBC (3.80-5.40) m/uL Hgb (11.4-16.0) gm/dL Hct (34.0-46.0) % Neutrophils # (1.3-7.7) k/uL Lymphocytes # (1.0-4.8) k/uL PT (9.0-12.0) sec INR (<1.2) Potassium (3.5-5.1) mmol/L BUN (7-17) mg/dL Glucose (74-99) mg/dL POC Glucose (mg/dL) 213 H (75-99) mg/dL Plasma Lactic Acid Giancarlo 2.5 H* (0.7-2.0) mmol/L Magnesium (1.6-2.3) mg/dL Total Bilirubin (0.2-1.3) mg/dL Troponin I 0.072 H* (0.000-0.034) ng/mL Urine Appearance (Clear) Urine Protein (Negative) Urine Blood (Negative) Ur Leukocyte Esterase (Negative) Urine RBC (0-5) /hpf Urine WBC (0-5) /hpf Ur Squamous Epith Cells (0-4) /hpf Urine Bacteria (None) /hpf Urine Mucus (None) /hpf 08/08/18 08/08/18 08/08/18 Range/Units 08:26 08:26 08:26 WBC 15.7 H (3.8-10.6) k/uL RBC 3.68 L (3.80-5.40) m/uL Hgb 10.6 L D (11.4-16.0) gm/dL Hct 32.7 L (34.0-46.0) % Neutrophils # 13.2 H (1.3-7.7) k/uL Lymphocytes # (1.0-4.8) k/uL PT (9.0-12.0) sec INR (<1.2) Potassium 5.5 H (3.5-5.1) mmol/L BUN 22 H (7-17) mg/dL Glucose 256 H (74-99) mg/dL POC Glucose (mg/dL) (75-99) mg/dL Plasma Lactic Acid Giancarlo (0.7-2.0) mmol/L Magnesium 2.5 H (1.6-2.3) mg/dL Total Bilirubin 1.4 H (0.2-1.3) mg/dL Troponin I 0.075 H* (0.000-0.034) ng/mL Urine Appearance (Clear) Urine Protein (Negative) Urine Blood (Negative) Ur Leukocyte Esterase (Negative) Urine RBC (0-5) /hpf Urine WBC (0-5) /hpf Ur Squamous Epith Cells (0-4) /hpf Urine Bacteria (None) /hpf Urine Mucus (None) /hpf 08/08/18 08/08/18 Range/Units 08:26 11:29 WBC (3.8-10.6) k/uL RBC (3.80-5.40) m/uL Hgb (11.4-16.0) gm/dL Hct (34.0-46.0) % Neutrophils # (1.3-7.7) k/uL Lymphocytes # (1.0-4.8) k/uL PT 18.9 H (9.0-12.0) sec INR 1.9 H (<1.2) Potassium (3.5-5.1) mmol/L BUN (7-17) mg/dL Glucose (74-99) mg/dL POC Glucose (mg/dL) 239 H (75-99) mg/dL Plasma Lactic Acid Giancarlo (0.7-2.0) mmol/L Magnesium (1.6-2.3) mg/dL Total Bilirubin (0.2-1.3) mg/dL Troponin I (0.000-0.034) ng/mL Urine Appearance (Clear) Urine Protein (Negative) Urine Blood (Negative) Ur Leukocyte Esterase (Negative) Urine RBC (0-5) /hpf Urine WBC (0-5) /hpf Ur Squamous Epith Cells (0-4) /hpf Urine Bacteria (None) /hpf Urine Mucus (None) /hpf Microbiology - Last 24 Hours (Table) 08/07/18 21:05 Urine Culture - Preliminary Urine,Voided Thrombosis Risk Factor Assmnt - Choose All That Apply Each Factor Represents 1 point: Obesity (BMI >25) Each Risk Factor Represents 3 Points: Age 75 years or older Thrombosis Risk Factor Assessment Total Risk Factor Score: 4 Thrombosis Risk Factor Assessment Level: Moderate Risk Assessment and Plan Assessment: 1. Atrial fibrillation with rapid ventricular response. Patient started on Cardizem drip. Home dose of Coumadin has been ordered. Patient's PT/INR 2.2 on admission we'll continue to monitor daily and adjust if needed. Cardio ALLERGY services are following. Patient's home dose of beta angela and oral Cardizem has been resumed Cardizem drip has been DC'd per cardiology lisinopril currently on hold due to hyperkalemia. 2. Positive UTI with sepsis. Levaquin started. Urine and blood culture ordered. lactic acid 2.5 3. Elevated troponin. Cardiology following. Likely secondary to A. fib with RVR sepsis 4. History of CVA 5. History of essential hypertension 6. History of hyperlipidemia 7. History of diabetes mellitus. Long-acting fluid ordered plus sliding scale coverage 8. Hyperkalemia. Potassium 5.5. recheck has been ordered and recheck for 3 PM today DVT prophylaxis Coumadin. GI prophylaxis Protonix Pulmonary and cardiology services consulted. Patient started on Levaquin for antibiotic. Urine blood and sputum cultures ordered Influenza ordered. Repeat potassium today at 3 PM Time with Patient: Greater than 30 (Greater than 60% of the total time spent in counseling and coordination of care. I performed an examination of the patient and discussed their management with the Nurse Practitioner. I have reviewed the Nurse Practitioner's notes and agree with the documented findings and plan of care)
--- NOTE | 2018-08-08 15:43 | P.CNPUL ---
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 Patient was admitted through the emergency room yesterday with chief complaint of shortness of breath. Patient had no coug h, no fever, no chills, however she had a sudden episode of feeling extremely weak and short of breath. Upon presentation, her EKG showed atrial fibrillation with RVR. Her chest x-ray showed cardiomegaly and small left pleural effusion with atelectasis. Clearly no evidence of pneumonia on presentation and her clinical history did not point to pneumonia whatsoever. Patient was treated, she was placed on oxygen at 2 L initially, she is presently on room air. She was given diuretics, she was also given Beta blockers and calcium channel blockers/Cardizem after she was placed on Cardizem drip. During my evaluation, the patient was feeling fine, as a matter of fact she feels better than she has ever felt. She had no cough, no wheezing, no fever, no chills, no hemoptysis, no chest pain. And her atrial fibrillation/RVR has been better controlled. Patient has been on Coumadin and her INR seems to be fairly well controlled presently INR is 1.9, it was 2.2/therapeutic on admission. Her troponin was noted to be slightly elevated. And lactic acid was 2.1 on admission. Urinalysis showed evidence of hematuria. Review of Systems CONSTITUTIONAL: Denies any fever chills or weight loss or fatigue. EYES: Denies blurred vision, no diplopia,. EARS, NOSE, MOUTH, THROAT, denies any sore throat, no earache, no nasal congestion. RESPIRATORY: Shortness of breath initially on presentation, her shortness of breath resolved by the time I evaluated the patient this afternoon. No cough no wheezing no fever no chills no hemoptysis. CARDIOVASCULAR: Palpitations and shortness of breath, symptoms have resolved completely today GASTROINTESTINAL: No nausea no vomiting no abdominal pain no melena no hematemesis GENITOURINARY: Denies dysuria frequency urgency or hematuria INTEGUMENT/BREAST: Denies any muscle injury, denies any deformities or limitation in range of motion. HEMATOLOGIC/LYMPHATIC: No symptoms of clotting bleeding or bruising. Patient is maintained on Coumadin on outpatient basis. MUSCULOSKELTAL: No symptoms of osteoarthritis or rheumatoid arthritis. NEURLOGICAL: Denies any headache blurred vision or dizziness. BEHAVIORAL/PSYCH: Denies any active symptoms of depression ENDOCRINE: Denies any heat or cold intolerance. Past Medical History Past Medical History: Atrial Fibrillation, CVA/TIA, Hypertension Additional Past Medical History / Comment(s): Stroke x 2- History of Any Multi-Drug Resistant Organisms: None Reported Past Surgical History: Appendectomy, Cholecystectomy, Orthopedic Surgery, Tonsillectomy Additional Past Surgical History / Comment(s): pt. states shes had two knee surgeries Past Anesthesia/Blood Transfusion Reactions: No Reported Reaction Past Psychological History: Depression Additional Psychological History / Comment(s): pt. states she had depression after her , pt. states the depression is no longer an issue Smoking Status: Never smoker Past Alcohol Use History: None Reported Past Drug Use History: None Reported - Past Family History Son(s) Family Medical History: Myocardial Infarction ([place]) Medications and Allergies Home Medications Medication Instructions Recorded Confirmed Type Carvedilol [Coreg] 25 mg PO BID 05/08/17 08/07/18 History Cholecalciferol [Vitamin D3] 5,000 unit PO DAILY 05/08/17 08/07/18 History Ferrous Sulfate [Iron (65 MG 325 mg PO DAILY 05/08/17 08/07/18 History Elemental)] Lisinopril [Zestril] 5 mg PO DAILY 05/08/17 08/07/18 History Magnesium Oxide [Mag-Ox] 250 mg PO DAILY 05/08/17 08/07/18 History Vitamin E (Dl,Tocopheryl Acet) 400 unit PO DAILY 05/08/17 08/07/18 History [Vitamin E] Warfarin [Coumadin] 6 mg PO MOTUWEFRSA 05/08/17 08/07/18 History Warfarin [Coumadin] 9 mg PO SUTH 05/08/17 08/07/18 History glipiZIDE [Glucotrol] 10 mg PO QAM 05/08/17 08/07/18 History metFORMIN HCL [Glucophage] 500 mg PO BID 05/08/17 08/07/18 History Atorvastatin [Lipitor] 10 mg PO HS tab 05/11/17 08/07/18 Rx Ascorbic Acid [Vitamin C] 500 mg PO DAILY 08/07/18 08/07/18 History Calcium Carbonate [Calcium] 600 mg PO DAILY 08/07/18 08/07/18 History Cranberry Concentrate 168 mg PO BID 08/07/18 08/07/18 History Cyanocobalamin [Vitamin B-12] 500 mcg PO DAILY 08/07/18 08/07/18 History Diltiazem HCl [Cartia Xt] 120 mg PO DAILY 08/07/18 08/07/18 History Insulin Detemir (Levemir) [Levemir] 13 unit SQ HS 08/07/18 08/07/18 History Allergies Allergy/AdvReac Type Severity Reaction Status Date / Time influenza virus vaccine qs Allergy Unknown Unknown Verified 08/07/18 21:14 2016- (36 months up) [From Fluarix Quad 9184-9574 ()] aspirin Allergy Unknown Verified 08/07/18 21:14 Penicillins Allergy Rash/Hives Verified 08/07/18 21:14 red dye Allergy Unknown Verified 08/07/18 21:14 Physical Exam Vitals: Vital Signs Temp Pulse Pulse Resp BP BP Pulse Ox 08/08/18 11:25 97.2 F L 105 H 18 128/95 95 08/08/18 08:00 97.1 F L 107 H 18 136/62 97 08/08/18 06:06 98.6 F 77 18 133/73 93 L 08/07/18 23:31 98.3 F 107 H 20 142/67 93 L 08/07/18 23:25 98.3 F 107 H 18 142/67 93 L 08/07/18 23:13 101 H 20 152/87 98 08/07/18 22:42 101 H 20 141/69 96 08/07/18 20:39 98.4 F 137 H 20 128/98 95 Intake and Output 08/08/18 08/08/18 08/08/18 06:59 14:59 22:59 Intake Total 480 Balance 480 Intake: Oral 480 Other: # Voids 1 1 Weight 90.1 kg Physical Exam: Revealed a 78-year-old female, in no form of distress, on room air, very pleasant. Head: Atraumatic, normocephalic. HEENT:[Neck is supple.] [No neck masses.] [No thyromegaly.] [No JVD.] PERRLA, EOMI, no icterus. Moist mucous membranes. Chest: [Clear throughout, no crackles, no rhonchi, no wheezes.] No chest wall tenderness. Cardiac Exam: [Irregular irregular rhythm. Normal S1 and S2, no S3 gallop, 2/6 systolic murmur thought the precordium] Abdomen: [Obese, Soft, nontender, no megaly, no rebound, no guarding, normal bowel sounds.] Extremities: [No clubbing, trace of bipedal edema, no cyanosis.] Neurological Exam: [No focal neurologic deficit.] Alert and oriented 3. Psychiatric: Normal mood, affect and mental status examination. Lymphatics: No lymphadenopathy. Skin: No rashes. Results - Laboratory Findings CBC and BMP: 08/08/18 08:26 08/08/18 08:26 PT/INR, D-dimer PT 18.9 sec (9.0-12.0) H 08/08/18 08:26 INR 1.9 (<1.2) H 08/08/18 08:26 Abnormal lab findings: Abnormal Labs 08/07/18 08/07/18 08/07/18 21:00 21:00 21:00 WBC 13.4 H RBC Hgb Hct Neutrophils # 11.8 H Lymphocytes # 0.8 L PT INR Potassium 5.6 H BUN 21 H Glucose 300 H POC Glucose (mg/dL) Plasma Lactic Acid Giancarlo 2.1 H* Magnesium 1.3 L Total Bilirubin Troponin I Urine Appearance Urine Protein Urine Blood Ur Leukocyte Esterase Urine RBC Urine WBC Ur Squamous Epith Cells Urine Bacteria Urine Mucus 08/07/18 08/07/18 08/07/18 21:00 21:05 23:58 WBC RBC Hgb Hct Neutrophils # Lymphocytes # PT 21.3 H INR 2.2 H Potassium BUN Glucose POC Glucose (mg/dL) 298 H Plasma Lactic Acid Giancarlo Magnesium Total Bilirubin Troponin I Urine Appearance Cloudy H Urine Protein 2+ H Urine Blood Moderate H Ur Leukocyte Esterase Moderate H Urine RBC >182 H Urine WBC 25 H Ur Squamous Epith Cells 6 H Urine Bacteria Rare H Urine Mucus Rare H 08/08/18 08/08/18 08/08/18 00:46 03:55 06:02 WBC RBC Hgb Hct Neutrophils # Lymphocytes # PT INR Potassium BUN Glucose POC Glucose (mg/dL) 213 H Plasma Lactic Acid Giancarlo 2.5 H* Magnesium Total Bilirubin Troponin I 0.072 H* Urine Appearance Urine Protein Urine Blood Ur Leukocyte Esterase Urine RBC Urine WBC Ur Squamous Epith Cells Urine Bacteria Urine Mucus 08/08/18 08/08/18 08/08/18 08:26 08:26 08:26 WBC 15.7 H RBC 3.68 L Hgb 10.6 L D Hct 32.7 L Neutrophils # 13.2 H Lymphocytes # PT INR Potassium 5.5 H BUN 22 H Glucose 256 H POC Glucose (mg/dL) Plasma Lactic Acid Giancarlo Magnesium 2.5 H Total Bilirubin 1.4 H Troponin I 0.075 H* Urine Appearance Urine Protein Urine Blood Ur Leukocyte Esterase Urine RBC Urine WBC Ur Squamous Epith Cells Urine Bacteria Urine Mucus 08/08/18 08/08/18 08:26 11:29 WBC RBC Hgb Hct Neutrophils # Lymphocytes # PT 18.9 H INR 1.9 H Potassium BUN Glucose POC Glucose (mg/dL) 239 H Plasma Lactic Acid Giancarlo Magnesium Total Bilirubin Troponin I Urine Appearance Urine Protein Urine Blood Ur Leukocyte Esterase Urine RBC Urine WBC Ur Squamous Epith Cells Urine Bacteria Urine Mucus - Diagnostic Findings Chest x-ray: image reviewed (Chest x-ray showed cardiomegaly, minimal left lower lobe atelectasis and small effusion noted. No evidence of interstitial lung disease.) Assessment and Plan Assessment: Impression: 1 shortness of breath secondary to atrial fibrillation with RVR. 2 mild systolic congestive heart failure with left pleural effusion and atelectasis, clinically improved based on her clinical symptoms patient responded to diuretics she also responded to Cardizem drip upon presentation. 3 known history of atrial fibrillation, chronically anticoagulated. Hence continue Coumadin. 4 possible urinary tract infection, patient is presently on antibiotics. 5 abnormal troponin secondary to atrial fibrillation with RVR. 6 type 2 diabetes. 7 benign essential hypertension 8 history of CVA 9 mild to moderate mitral regurgitation Recommendation: I fully agree with the present treatment plan including calcium channel blockers, beta blockers, Coumadin, suggest careful monitoring of the pro time/INR while the patient is on Coumadin and Levaquin. May have to cut down the dose of Coumadin otherwise the patient will have significantly elevated INR in the next 24-48 hours. Again based on her clinical history and based on her symptoms, no clear-cut evidence of pneumonia. If her urine cultures comes back negative, suggest stopping Levaquin. Will follow on when necessary basis Time with Patient: Less than 30
[2018-08-08 16:35] LABS: Glucose,Whole Blood 171 mg/dL (75-99)
[2018-08-08] MEDS ORDERED: WARFARIN 3 MG TAB PO SCH (18:00)
[2018-08-08] MEDS: SODIUM CHLORIDE 0.9% 1,000 ML IV SCH (18:47)
[2018-08-08] MEDS: DILTIAZEM 125 MG in SODIUM CHLORIDE 0.9% 100 ML IV SCH (20:32)
[2018-08-08 20:42] LABS: Glucose,Whole Blood 243 mg/dL (75-99)
[2018-08-08] MEDS ORDERED: INSULIN DETEMIR (LEVEMIR) 100 UNIT/ML SYR SQ SCH (21:00)
[2018-08-08] MEDS ORDERED: ATORVASTATIN 10 MG TAB PO SCH (21:00)
[2018-08-09] MEDS: SODIUM CHLORIDE 0.9% 1,000 ML IV SCH (02:09)
[2018-08-09 05:44] LABS: Glucose,Whole Blood 134 mg/dL (75-99)
[2018-08-09] MEDS: CARVEDILOL 12.5 MG TAB PO SCH (06:34)
[2018-08-09] MEDS: INSULIN ASPART (NovoLOG) 100 UNIT/ML VIAL SQ SCH ×2 (06:34→13:24)
[2018-08-09 06:55] LABS: INR 2.1 (<1.2); Prothrombin Time 20.3 sec (9.0-12.0)
[2018-08-09 06:56] LABS: Albumin 3.4 g/dL (3.5-5.0); Calcium 9.1 mg/dL (8.4-10.2); Total Bilirubin 1.8 mg/dL (0.2-1.3); Total Protein 6.8 g/dL (6.3-8.2)
[2018-08-09 07:01] LABS: Potassium 5.3 mmol/L (3.5-5.1)
[2018-08-09 07:02] LABS: Magnesium 1.8 mg/dL (1.6-2.3)
[2018-08-09] MEDS ORDERED: PANTOPRAZOLE 40 MG TABLET PO SCH (07:30)
[2018-08-09 08:15] LABS: Basophils % (A) 0 %; Eosinophils # (A) 0.2 k/uL (0-0.7); Eosinophils % (A) 1 %; HGB 10.4 gm/dL (11.4-16.0); Lymphocytes # (A) 1.6 k/uL (1.0-4.8); Lymphocytes % (A) 12 %; MCH 28.6 pg (25.0-35.0); MCHC 32.6 g/dL (31.0-37.0); MCV 87.7 fL (80.0-100.0); Mean Platelet Volume 10.5; Monocytes # (A) 0.8 k/uL (0-1.0); Monocytes % (A) 6 %; Neutrophils # (A) 10.1 k/uL (1.3-7.7); Neutrophils % (A) 79 %; Platelet Count 226 k/uL (150-450); RBC 3.65 m/uL (3.80-5.40); RDW 14.7 % (11.5-15.5); WBC 12.7 k/uL (3.8-10.6)
[2018-08-09] MEDS: DILTIAZEM CD 180 MG CAP.ER.24H PO SCH (09:29)
[2018-08-09] MEDS: VITAMIN E (DL,TOCOPHERYL ACET) 400 UNIT CAP PO SCH (09:29)
--- NOTE | 2018-08-09 09:54 | P.PN ---
Subjective Progress Note Date: 08/09/18 This is a pleasant 78-year-old female who follows with a personnel consultant out of town, she has a known history of atrial fibrillation, persistent, prior CVA, hypertension, nonsmoker, diabetic, hyperlipidemia, who overall has been doing fairly well at home, yesterday patient felt extremely weak and noticed herself to be short of breath. She denied any frequency or dysuria. Denied any chest discomfort. EKG on arrival here showed atrial fibrillation with a rapid ventricular response. Chest x-ray showed cardiomegaly with left lower lobe infiltrate and small effusion. Findings appear to be superimposed on the background of COPD. Mild chronic interstitial lung disease or venous congestion not excluded. Blood pressure on arrival here 128/98, heart rate 1:30, 95% on 2 L of oxygen. I pressure this morning 128/90 with a heart rate in the low 100s, 95% on room air. White blood cell count up to 15.7, hemoglobin 10.6, 13.8 on admission, INR 2.2 on admission, 1.9 this morning. Sodium 137, potassium 5.5, BUN 22 and creatinine 0.8. Plasma lactic acid elevated at 2.5, total bilirubin 1.4 magnesium 1.3 on admission, 2.5 this morning. Initial troponin 0.018, subsequent troponins 0.072 and 0.075. Urinalysis does show evidence of a UTI. At the time of my examination this morning, patient feels well, she states that she has no further shortness of breath, no palpitations or chest discomfort. 08/09/2018 Patient was seen and examined this morning, overall feeling significantly better today.continues to be in atrial fibrillation, heart rate in the 90s to low 100s this morning.echocardiogram with Doppler study remains pending.White blood cell count 12.7, hemoglobin 10.4, platelet count 226. INR 2.1. Sodium 136, potassium 5.3, BUN 24 and creatinine 0.9.magnesium level I.8.She is quite eager to be discharged home today. I did have a discussion with the patient today regarding the new her anticoagulants, she will discuss this with her personnel consultant on discharge, she is quite interested in switching from Coumadinas her INRs do fluctuate quite a bit. We will increase her dose of Cardizem today to 240 mg daily. Objective - Vital Signs Vital signs: Vital Signs Temp 97.7 F 08/09/18 03:57 Pulse 99 08/09/18 03:57 Resp 20 08/09/18 03:57 BP 138/71 08/09/18 03:57 Pulse Ox 98 08/09/18 03:57 Intake & Output 08/08/18 08/09/18 08/09/18 18:59 06:59 18:59 Intake Total 480 360 120 Balance 480 360 120 Weight 91.2 kg Intake: Oral 480 360 120 Other: Voiding Method Toilet # Voids 1 1 - Exam PHYSICAL EXAMINATION: GENERAL: 78-year-old female in no acute distress at the time of my examination HEENT: Head is atraumatic, normocephalic. Pupils equal, round. Sclera anicteric. Conjunctiva are clear. Mucous membranes of the mouth are moist. Neck is supple. There is no elevated jugular venous pressure. No carotid bruit is heard. HEART EXAMINATION: Heart S1 and S2 irregularly irregular a systolic murmur is heard CHEST EXAMINATION: lungs are clear to auscultation. ABDOMEN: Soft, nontender. Bowel sounds are heard. No organomegaly noted. EXTREMITIES: 2+ peripheral pulses with trace evidence of peripheral edema and no calf tenderness noted. NEUROLOGIC patient is awake, alert and oriented 3. - Labs CBC & Chem 7: 08/09/18 06:07 08/09/18 06:07 Labs: Abnormal Lab Results - Last 24 Hours (Table) 08/08/18 08/08/18 08/08/18 Range/Units 08:26 08:26 11:29 WBC (3.8-10.6) k/uL RBC (3.80-5.40) m/uL Hgb (11.4-16.0) gm/dL Hct (34.0-46.0) % Neutrophils # (1.3-7.7) k/uL PT (9.0-12.0) sec INR (<1.2) Sodium (137-145) mmol/L Potassium 5.5 H (3.5-5.1) mmol/L BUN 22 H (7-17) mg/dL Glucose 256 H (74-99) mg/dL POC Glucose (mg/dL) 239 H (75-99) mg/dL Magnesium 2.5 H (1.6-2.3) mg/dL Total Bilirubin 1.4 H (0.2-1.3) mg/dL Troponin I 0.075 H* (0.000-0.034) ng/mL Albumin (3.5-5.0) g/dL 08/08/18 08/08/18 08/09/18 Range/Units 16:32 20:34 05:39 WBC (3.8-10.6) k/uL RBC (3.80-5.40) m/uL Hgb (11.4-16.0) gm/dL Hct (34.0-46.0) % Neutrophils # (1.3-7.7) k/uL PT (9.0-12.0) sec INR (<1.2) Sodium (137-145) mmol/L Potassium (3.5-5.1) mmol/L BUN (7-17) mg/dL Glucose (74-99) mg/dL POC Glucose (mg/dL) 171 H 243 H 134 H (75-99) mg/dL Magnesium (1.6-2.3) mg/dL Total Bilirubin (0.2-1.3) mg/dL Troponin I (0.000-0.034) ng/mL Albumin (3.5-5.0) g/dL 08/09/18 08/09/18 08/09/18 Range/Units 06:07 06:07 06:07 WBC 12.7 H (3.8-10.6) k/uL RBC 3.65 L (3.80-5.40) m/uL Hgb 10.4 L (11.4-16.0) gm/dL Hct 32.0 L (34.0-46.0) % Neutrophils # 10.1 H (1.3-7.7) k/uL PT 20.3 H (9.0-12.0) sec INR 2.1 H (<1.2) Sodium 136 L (137-145) mmol/L Potassium 5.3 H (3.5-5.1) mmol/L BUN 24 H (7-17) mg/dL Glucose 132 H (74-99) mg/dL POC Glucose (mg/dL) (75-99) mg/dL Magnesium (1.6-2.3) mg/dL Total Bilirubin 1.8 H (0.2-1.3) mg/dL Troponin I (0.000-0.034) ng/mL Albumin 3.4 L (3.5-5.0) g/dL Microbiology - Last 24 Hours (Table) 08/07/18 21:05 Urine Culture - Preliminary Urine,Voided Strep agalactiae - (group b) Gram Neg Bacilli Assessment and Plan Plan: Assessment and plan #1 symptoms of fairly sudden onset of weakness with associated shortness of breath. #2 atrial fibrillation with rapid ventricular response on Coumadin for anticoagulation, chronic persistent #2 positive UTI with sepsis, antibiotics initiated #3 abnormal troponin, likely secondary to A. fib with RVR or sepsis #4 history of CVA #5 hypertension #6 hyperlipidemia #7 diabetes, blood sugar 298 on admission. #8 hyperkalemia Plan We will review the echocardiogram with Doppler study. Increase dose of Cardizem to 240 mg daily. From our perspective she may be able to be discharged once cleared by her primary. She will follow-up with her personnel consultant in [place] on discharge. DNP note has been reviewed, I agree with a documented findings and plan of care. Patient was seen and examined.
[2018-08-09 10:24] VITALS: PULSE 97; RESP 18; TEMP 97.9
--- NOTE | 2018-08-09 11:02 | ECHOF ---
Referral Reason:afib MEASUREMENTS -------- HEIGHT: 172.7 cm WEIGHT: 89.8 kg BP: 128/85 RVIDd: 3.1 cm (< 3.3) IVSd: 0.9 cm (0.6 - 1.1) LVIDd: 5.3 cm (3.9 - 5.3) LVPWd: 1.2 cm (0.6 - 1.1) IVSs: 1.3 cm LVIDs: 4.2 cm LVPWs: 1.4 cm LA Diam: 4.4 cm (2.7 - 3.8) LAESV Index (A-L): 38.86 ml/m Ao Diam: 2.6 cm (2.0 - 3.7) AV Cusp: 1.5 cm (1.5 - 2.6) LA Diam: 4.1 cm (2.7 - 3.8) MV EXCURSION: 18.742 mm (> 18.000) MV EF SLOPE: 64 mm/s (70 - 150) EPSS: 1.4 cm MV E Hosea: 1.11 m/s MV DecT: 135 ms MV A Hosea: 0.07 m/s MV E/A Ratio: 16.44 RAP: 15.00 mmHg RVSP: 38.65 mmHg FINDINGS -------- Atrial fibrillation. This was a technically adequate study. The left ventricular size is normal. Left ventricular wall thickness is normal. Overall left vent ricular systolic function is moderately impaired with, an EF between 35 - 40 %. Anterseptal Hypokin esis Septal Hypokinesis Lyons Hypokinesis. The right ventricle is mildly enlarged. The left atrium is markedly dilated. LA is severely dilated >40 ml/m2 The right atrial size is normal. There is mild aortic valve sclerosis. Mild mitral annular calcification present. Moderate mitral regurgitation is present. Mild tricuspid regurgitation present. There is mild pulmonary hypertension. The right ventricular systolic pressure, as measured by Doppler, is 38.65mmHg. Trace/mild (physiologic) pulmonic regurgitation. The aortic root size is normal. The inferior vena cava is dilated with no significant inspiratory collapse which is consistent estima faby right atrial pressure of >20 mmHg. There is no pericardial effusion. CONCLUSIONS -------- 1. The left ventricular size is normal. 2. Left ventricular wall thickness is normal. 3. Overall left ventricular systolic function is moderately impaired with, an EF between 35 - 40 %. 4. Anterseptal Hypokinesis 5. Septal Hypokinesis 6. Lyons Hypokinesis. 7. The right ventricle is mildly enlarged. 8. The left atrium is markedly dilated. 9. LA is severely dilated >40 ml/m2 10. The right atrial size is normal. 11. There is mild aortic valve sclerosis. 12. Mild mitral annular calcification present. 13. Moderate mitral regurgitation is present. 14. Mild tricuspid regurgitation present. 15. There is mild pulmonary hypertension. 16. The right ventricular systolic pressure, as measured by Doppler, is 38.65mmHg. 17. Trace/mild (physiologic) pulmonic regurgitation. 18. The aortic root size is normal. 19. The inferior vena cava is dilated with no significant inspiratory collapse which is consistent es timated right atrial pressure of >20 mmHg. 20. There is no pericardial effusion. IMPROVEMENT RN: Yajaira Steward RDCS
--- NOTE | 2018-08-09 11:03 | P.PN ---
Subjective Progress Note Date: 08/09/18 This is a 78-year-old female patient of Dr. Thompson. Patient presented to ER with complaints of increased shortness of breath and a feeling of her heart racing. She reports symptoms started after dinner yesterday. Patient does have a known past medical atrial fibrillation in which she is on Coumadin. A dditional medical history includes CVA 2 hypertension and depression. EKG completed in ER showing atrial fibrillation with rapid ventricular response. Patient started on Cardizem drip and cardiology services have been consulted. Chest x-ray completed in ER showing cardiomegaly with left lower lobe infiltrate and small effusion. Findings appear to be superimposed on a background COPD. Mild chronic interstitial lung disease or venous congestion not excluded. UA positive for leukocyte esterase. Patient with blood cell elevated at 15.7 and lactic acid 2.5. Will start patient on Levaquin. Pulmonary service is consulted for possible pneumonia. Blood and urine cultures ordered. Influenza ordered. Potassium also elevated at 5.5 Kayexalate ordered recheck today at 1500. At this time patient is resting comfortably in bed. Patient denies chest pain or shortness of breath. Patient denies nausea vomiting or diarrhea. Patient denies any urinary burning or frequency. Patient does report she chronically does wake up to go to the bathroom quite frequently but this has been an ongoing issue. On 08/09/2017 patient is alert and oriented resting comfortably in bed. Patient currently on Levaquin for urinary tract infection. Repeat lactic 1.1. Heart rate has improved. Cardiology service following. Patient denies chest pain or shortness of breath. Patient denies nausea vomiting or diarrhea. Patient denies any urinary burning or frequency Objective - Vital Signs Vital signs: Vital Signs Temp 97.9 F 08/09/18 08:00 Pulse 97 08/09/18 08:00 Resp 18 08/09/18 08:00 BP 146/67 08/09/18 08:00 Pulse Ox 97 08/09/18 08:00 Intake & Output 08/08/18 08/09/18 08/09/18 18:59 06:59 18:59 Intake Total 480 360 120 Balance 480 360 120 Weight 91.2 kg Intake: Oral 480 360 120 Other: Voiding Method Toilet # Voids 1 1 - Exam Head normocephalic Neck supple Lungs clear to auscultation bilaterally no wheezing or crackles Heart irregular rate and rhythm S1-S2, no rub or gallop Abdomen is soft nontender nondistended positive bowel sounds no hepatosplenomegaly Extremities no edema Neuro alert and orientated to 3 - Labs CBC & Chem 7: 08/09/18 06:07 08/09/18 06:07 Labs: Abnormal Lab Results - Last 24 Hours (Table) 08/08/18 08/08/18 08/08/18 Range/Units 08:26 11:29 16:32 WBC (3.8-10.6) k/uL RBC (3.80-5.40) m/uL Hgb (11.4-16.0) gm/dL Hct (34.0-46.0) % Neutrophils # (1.3-7.7) k/uL PT (9.0-12.0) sec INR (<1.2) Sodium (137-145) mmol/L Potassium (3.5-5.1) mmol/L BUN (7-17) mg/dL Glucose (74-99) mg/dL POC Glucose (mg/dL) 239 H 171 H (75-99) mg/dL Total Bilirubin (0.2-1.3) mg/dL Troponin I 0.075 H* (0.000-0.034) ng/mL Albumin (3.5-5.0) g/dL 08/08/18 08/09/18 08/09/18 Range/Units 20:34 05:39 06:07 WBC 12.7 H (3.8-10.6) k/uL RBC 3.65 L (3.80-5.40) m/uL Hgb 10.4 L (11.4-16.0) gm/dL Hct 32.0 L (34.0-46.0) % Neutrophils # 10.1 H (1.3-7.7) k/uL PT (9.0-12.0) sec INR (<1.2) Sodium (137-145) mmol/L Potassium (3.5-5.1) mmol/L BUN (7-17) mg/dL Glucose (74-99) mg/dL POC Glucose (mg/dL) 243 H 134 H (75-99) mg/dL Total Bilirubin (0.2-1.3) mg/dL Troponin I (0.000-0.034) ng/mL Albumin (3.5-5.0) g/dL 08/09/18 08/09/18 Range/Units 06:07 06:07 WBC (3.8-10.6) k/uL RBC (3.80-5.40) m/uL Hgb (11.4-16.0) gm/dL Hct (34.0-46.0) % Neutrophils # (1.3-7.7) k/uL PT 20.3 H (9.0-12.0) sec INR 2.1 H (<1.2) Sodium 136 L (137-145) mmol/L Potassium 5.3 H (3.5-5.1) mmol/L BUN 24 H (7-17) mg/dL Glucose 132 H (74-99) mg/dL POC Glucose (mg/dL) (75-99) mg/dL Total Bilirubin 1.8 H (0.2-1.3) mg/dL Troponin I (0.000-0.034) ng/mL Albumin 3.4 L (3.5-5.0) g/dL Microbiology - Last 24 Hours (Table) 08/07/18 21:05 Urine Culture - Preliminary Urine,Voided Strep agalactiae - (group b) Gram Neg Bacilli Assessment and Plan Assessment: 1. Atrial fibrillation with rapid ventricular response. Patient started on Cardizem drip. Home dose of Coumadin has been ordered. Patient's PT/INR 2.2 on admission we'll continue to monitor daily and adjust if needed. Cardio ALLERGY services are following. Patient's home dose of beta angela and oral Cardizem has been resumed Cardizem drip has been DC'd per cardiology lisinopril currently on hold due to hyperkalemia. Cardizem dose has been increased to 240 mg daily. 2. Positive UTI with sepsis. Levaquin started. Urine and blood culture ordered. lactic acid 2.5. Patient currently on Levaquin. Repeat lactic acid 1.1 3. Elevated troponin. Cardiology following. Likely secondary to A. fib with RVR sepsis 4. History of CVA 5. History of essential hypertension 6. History of hyperlipidemia 7. History of diabetes mellitus. Long-acting fluid ordered plus sliding scale coverage 8. Hyperkalemia. Potassium 5.5. recheck has been ordered and recheck for 3 PM today. Potassium improving to 5.3. low potassium diet. Lisinopril on hold 9. History of atrial fibrillation. Patient maintained on Coumadin. INR today 2.1. We'll continue to monitor daily while patient is on Levaquin DVT prophylaxis Coumadin. GI prophylaxis Protonix Pulmonary and cardiology services consulted. I performed an examination of the patient and discussed their management with the Nurse Practitioner. I have reviewed the Nurse Practitioner's notes and agree with the documented findings and plan of care
[2018-08-09 11:49] LABS: Glucose,Whole Blood 138 mg/dL (75-99)
[2018-08-09 12:41] VITALS: BP 120/78
--- NOTE | 2018-08-09 14:25 | P.DS ---
Providers Date of admission: 08/07/18 22:12 Expected date of discharge: 08/09/18 Attending physician: Tori Barney Consults: 08/07/18 22:12 Consult Physician Urgent Consulting Provider: Isac Harris Consult Reason/Comments: afib Do you want consulting provider notified?: Yes 08/08/18 12:45 Consult Physician Routine Consulting Provider: Tim Mendoza Consult Reason/Comments: possible pneumonia Do you want consulting provider notified?: Yes Primary care physician: Miranda Thompson Hospital Course: Discharge diagnosis 1. Atrial fibrillation with rapid ventricular response. Patient started on Cardizem drip. Home dose of Coumadin has been ordered. Patient's PT/INR 2.2 on admission we'll continue to monitor daily and adjust if needed. Cardio ALLERGY services are following. Patient's home dose of beta angela and oral Cardizem has been resumed Cardizem drip has been DC'd per cardiology lisinopril currently on hold due to hyperkalemia. Cardizem dose has been increased to 240 mg daily. 2. Positive UTI with sepsis. Levaquin started. Urine and blood culture ordered. lactic acid 2.5. Patient currently on Levaquin. Repeat lactic acid 1.1. Urine culture growing strep agalactiae and gram neg bacilli. Patient will be DC'd on Levaquin for 6 more days. Advised patient the importance of close monitoring of her PT/INR while on Levaquin. Patient follow-up with PCP 3. Elevated troponin. Cardiology following. Likely secondary to A. fib with RVR sepsis 4. History of CVA 5. History of essential hypertension 6. History of hyperlipidemia 7. History of diabetes mellitus. Long-acting fluid ordered plus sliding scale coverage 8. Hyperkalemia. Potassium 5.5. recheck has been ordered and recheck for 3 PM today. Potassium improving to 5.3. low potassium diet. Lisinopril on hold. Patient refusing Kayexalate. Lisinopril DC'd upon discharge. Recommend low potassium diet repeat CMP on Sunday 1 out 9. History of atrial fibrillation. Patient maintained on Coumadin. INR today 2.1. We'll continue to monitor daily while patient is on Levaquin. Repeat PT/INR ordered Sunday. Recommend close monitoring of INR while on Levaquin antibiotic. Recommend patient get checked twice next week by her PCP Hospital course This is a 78-year-old female patient of Dr. Thompson. Patient presented to ER with complaints of increased shortness of breath and a feeling of her heart racing. She reports symptoms started after dinner yesterday. Patient does have a known past medical atrial fibrillation in which she is on Coumadin. Additional medical history includes CVA 2 hypertension and depression. EKG completed in ER showing atrial fibrillation with rapid ventricular response. Patient started on Cardizem drip and cardiology services have been consulted. Chest x-ray completed in ER showing cardiomegaly with left lower lobe infiltrate and small effusion. Findings appear to be superimposed on a background COPD. Mild chronic interstitial lung disease or venous congestion not excluded. UA positive for leukocyte esterase. Patient with blood cell elevated at 15.7 and lactic acid 2.5. Will start patient on Levaquin. Pulmonary service is consulted for possible pneumonia. Blood and urine cultures ordered. Influenza ordered. Potassium also elevated at 5.5 Kayexalate ordered recheck today at 1500. At this time patient is resting comfortably in bed. Patient denies chest pain or shortness of breath. Patient denies nausea vomiting or diarrhea. Patient denies any urinary burning or frequency. Patient does report she chronically does wake up to go to the bathroom quite frequently but this has been an ongoing issue. On 08/09/2017 patient is alert and oriented resting comfortably in bed. Patient currently on Levaquin for urinary tract infection. Repeat lactic 1.1. Heart rate has improved. Cardiology service following. Patient denies chest pain or shortness of breath. Patient denies nausea vomiting or diarrhea. Patient denies any urinary burning or frequency Patient has been cleared for discharge from cardiology standpoint. Patients Cardizem dose has been increased. Lisinopril DC'd due to hyperkalemia. Patient refused Kayexalate. Will follow up with repeat CMP on Sunday. Also discharge patient on 6 more days of Levaquin antibiotic for UTI. Patient advised the importance of following closely to monitor PT/INR while on Coumadin and Levaquin. Repeat PT/INR ordered for Sunday. Has had patient denies chest pain or shortness breath. Patient denies nausea vomiting or diarrhea. Patient denies any urinary burning or frequency. Patient expresses that she is very eager to go home. I performed an examination of the patient and discussed their management with the Nurse Practitioner. I have reviewed the Nurse Practitioner's notes and agree with the documented findings and plan of care Patient Condition at Discharge: Stable Plan - Discharge Summary New Discharge Prescriptions: New Diltiazem Cd [Cardizem CD] 240 mg PO DAILY #30 cap.er.24h Levofloxacin [Levaquin] 500 mg PO DAILY 6 Days #6 tab Continue Magnesium Oxide [Mag-Ox] 250 mg PO DAILY Vitamin E (Dl,Tocopheryl Acet) [Vitamin E] 400 unit PO DAILY Ferrous Sulfate [Iron (65 MG Elemental)] 325 mg PO DAILY Cholecalciferol [Vitamin D3] 5,000 unit PO DAILY metFORMIN HCL [Glucophage] 500 mg PO BID glipiZIDE [Glucotrol] 10 mg PO QAM Warfarin [Coumadin] 6 mg PO MOTUWEFRSA Carvedilol [Coreg] 25 mg PO BID Warfarin [Coumadin] 9 mg PO SUTH Atorvastatin [Lipitor] 10 mg PO HS tab Calcium Carbonate [Calcium] 600 mg PO DAILY Cyanocobalamin [Vitamin B-12] 500 mcg PO DAILY Ascorbic Acid [Vitamin C] 500 mg PO DAILY Insulin Detemir (Levemir) [Levemir] 13 unit SQ HS Cranberry Concentrate 168 mg PO BID Discontinued Lisinopril [Zestril] 5 mg PO DAILY Diltiazem HCl [Cartia Xt] 120 mg PO DAILY Discharge Medication List Carvedilol [Coreg] 25 mg PO BID 05/08/17 [History] Cholecalciferol [Vitamin D3] 5,000 unit PO DAILY 05/08/17 [History] Ferrous Sulfate [Iron (65 MG Elemental)] 325 mg PO DAILY 05/08/17 [History] Magnesium Oxide [Mag-Ox] 250 mg PO DAILY 05/08/17 [History] Vitamin E (Dl,Tocopheryl Acet) [Vitamin E] 400 unit PO DAILY 05/08/17 [History] Warfarin [Coumadin] 6 mg PO MOTUWEFRSA 05/08/17 [History] Warfarin [Coumadin] 9 mg PO SUTH 05/08/17 [History] glipiZIDE [Glucotrol] 10 mg PO QAM 05/08/17 [History] metFORMIN HCL [Glucophage] 500 mg PO BID 05/08/17 [History] Atorvastatin [Lipitor] 10 mg PO HS tab 05/11/17 [Rx] Ascorbic Acid [Vitamin C] 500 mg PO DAILY 08/07/18 [History] Calcium Carbonate [Calcium] 600 mg PO DAILY 08/07/18 [History] Cranberry Concentrate 168 mg PO BID 08/07/18 [History] Cyanocobalamin [Vitamin B-12] 500 mcg PO DAILY 08/07/18 [History] Insulin Detemir (Levemir) [Levemir] 13 unit SQ HS 08/07/18 [History] Diltiazem Cd [Cardizem CD] 240 mg PO DAILY #30 cap.er.24h 08/09/18 [Rx] Levofloxacin [Levaquin] 500 mg PO DAILY 6 Days #6 tab 08/09/18 [Rx] Follow up Appointment(s)/Referral(s): Sruthi Levi MD [STAFF PHYSICIAN] - 2 Weeks (Office will call with follow up appointment.) Miranda Thompson MD [Primary Care Provider] - 08/15/18 3:30 pm (With Federico Nickerson NP.) Ambulatory/Diagnostic Orders: Prothrombin Time INR [LAB.AMB] Time Frame: 3 Days, Location: None Selected Patient Instructions/Handouts: Hyperkalemia (DC), Hypomagnesemia (DC) Activity/Diet/Wound Care/Special Instructions: Low potassium diet Activity as tolerated Patient to follow with her PCP and have INR checked 2 times next week while on Levaquin antibiotic Discharge Disposition: HOME SELF-CARE
[2018-08-09] MEDS ORDERED: WARFARIN 3 MG TAB PO SCH (18:00)
[2018-08-10] MEDS ORDERED: FERROUS SULFATE 325 MG TAB PO SCH (09:00)
[2018-08-10] MEDS ORDERED: DILTIAZEM CD 240 MG CAP.ER.24H PO SCH (09:00)
[2018-08-10] MEDS ORDERED: LEVOFLOXACIN 500 MG TAB PO SCH (16:00)
--- NOTE | 2018-08-12 10:51 | CDI ---
Documentation Clarification Form Date: 08/12/2018 9:36:00 AM From: Sofía Benjamin Aline Villagomez, [place] Supervisor Hours-8:30 am & 5 pm M-F Admit Date: 08/07/2018 10:12:00 PM Patient Name: Moriah Tong Visit Number: [id number] Discharge Date: 08/09/2018 3:09:00 PM ATTENTION: The Clinical Documentation Specialists (CDI) and [facility] Coding Staff appreciate your assistance in clarifying documentation. Please respond to the clarification below the line at the bottom and electronically sign. The CDI & [facility] Coding staff will review the response and follow-up if needed. Please note: Queries are made part of the Legal Health Record. If you have any questions, please contact the author of this message via ITS. Dr. Tori Barney Systolic CHF is documented in the Consult. History/Risk Factors: AFIB, HTN, Pulmonary Disease, DM Clinical Indicators: SOB Echocardiogram Results: Systolic function moderately impaired with EF 35-40% Chest X Ray: Cardiomegaly, Effusion Treatment: Diuretics In your professional opinion, can you please clarify the acuity of CHF if known? Acute Chronic Acute on Chronic MTDD
== END 2018-08-09 15:09 | disposition home or self-care (01) | DRG 872 ==
LOC: EC 20:38 → 3SCARD 22:12
PROVIDERS: ADMIT Internal Medicine; ATTEND Internal Medicine
DX: A41.9 Sepsis, unspecified organism (principal); J84.9 Interstitial pulmonary disease, unspecified; I48.1 Persistent atrial fibrillation; I50.20 Unspecified systolic (congestive) heart failure; N39.0 Urinary tract infection, site not specified; J98.11 Atelectasis; E87.5 Hyperkalemia; E11.65 Type 2 diabetes mellitus with hyperglycemia; I11.0 Hypertensive heart disease with heart failure; J44.9 Chronic obstructive pulmonary disease, unspecified; R31.9 Hematuria, unspecified; I34.0 Nonrheumatic mitral (valve) insufficiency; F32.9 Major depressive disorder, single episode, unspecified; E66.9 Obesity, unspecified; R74.8 Abnormal levels of other serum enzymes; E78.5 Hyperlipidemia, unspecified; F41.9 Anxiety disorder, unspecified; Z68.33 Body mass index [BMI] 33.0-33.9, adult; Z79.01 Long term (current) use of anticoagulants; Z79.899 Other long term (current) drug therapy; Z79.4 Long term (current) use of insulin; Z86.73 Personal history of transient ischemic attack (TIA), and cerebral infarction without residual deficits; Z90.49 Acquired absence of other specified parts of digestive tract; Z91.02 Food additives allergy status; Z88.0 Allergy status to penicillin; Z88.7 Allergy status to serum and vaccine; Z88.6 Allergy status to analgesic agent; Z82.49 Family history of ischemic heart disease and other diseases of the circulatory system
CPT/HCPCS: 36415; 71046; 80053; 80061; 81001; 82330; 83605; 83735; 84100; 84132; 84443; 84484; 85025; 85610; 85730; 87040; 87077; 87086; 87186; 93005; 93306; 96361; 96365; 96366; 96376; 99291

== ENCOUNTER 2018-10-25 08:37 | Emergency (ER) | payer MEDICARE ==
[2018-10-25] MEDS ORDERED: IPRATROPIUM-ALBUTEROL 3 ML NEB INHALATION STA (09:04)
--- NOTE | 2018-10-25 09:08 | ED ---
SOB HPI - General Chief Complaint: Shortness of Breath Stated Complaint: Sob Time Seen by Provider: 10/25/18 08:54 Source: patient, family, RN notes reviewed Mode of arrival: wheelchair Limitations: no limitations - History of Present Illness Initial Comments: This is a 77-year-old female history of atrial fibrillation and asthma as well as urinary tract infections and urinary tract infections who presents with complaints of acid shortness of breath around 4:30 AM this morning she states later when she woke up she was wheezing no chest pain palpitations fevers chills nausea vomiting sweats cough or phlegm production. She does have exertional dyspnea no definite orthopnea she does have a history of peripheral edema which is better than it has been. No other modifying factors MD Complaint: shortness of breath - Related Data Home Medications Medication Instructions Recorded Confirmed Carvedilol [Coreg] 25 mg PO BID 05/08/17 10/25/18 Cholecalciferol [Vitamin D3 (25 5,000 unit PO DAILY 05/08/17 10/25/18 Mcg = 1000 Iu)] Ferrous Sulfate [Iron (65 MG 325 mg PO DAILY 05/08/17 10/25/18 Elemental)] Magnesium Oxide [Mag-Ox] 250 mg PO DAILY 05/08/17 10/25/18 Vitamin E (Dl,Tocopheryl Acet) 400 unit PO DAILY 05/08/17 10/25/18 [Vitamin E] Warfarin [Coumadin] 6 mg PO MOTUWEFRSA 05/08/17 10/25/18 Warfarin [Coumadin] 9 mg PO SUTH 05/08/17 10/25/18 metFORMIN HCL [Glucophage] 500 mg PO BID 05/08/17 10/25/18 Ascorbic Acid [Vitamin C] 500 mg PO DAILY 08/07/18 10/25/18 Calcium Carbonate [Calcium] 600 mg PO DAILY 08/07/18 10/25/18 Cranberry Concentrate 168 mg PO BID 08/07/18 10/25/18 Cyanocobalamin [Vitamin B-12] 500 mcg PO DAILY 08/07/18 10/25/18 Insulin Detemir (Levemir) [Levemir] 13 unit SQ HS 08/07/18 10/25/18 glipiZIDE [Glucotrol] 10 mg PO BID 10/25/18 10/25/18 Previous Rx's Medication Instructions Recorded Atorvastatin [Lipitor] 10 mg PO HS tab 12/29/17 Diltiazem Cd [Cardizem CD] 240 mg PO DAILY #30 cap.er.24h 08/09/18 Cephalexin [Keflex] 500 mg PO Q6HR #40 cap 10/25/18 Furosemide [Lasix] 20 mg PO BID #10 tab 10/25/18 Ipratropium/Albuterol Sulfate 2 puff INHALATION QID #1 inhaler 10/25/18 [Combivent Respimat Inhaler] Allergies Allergy/AdvReac Type Severity Reaction Status Date / Time influenza virus vaccine qs Allergy Unknown Unknown Verified 10/25/18 08:45 2016- (36 months up) [From Fluarix Quad 7210-9497 (PF)] asparagus Allergy Rash/Hives Verified 10/25/18 09:21 aspirin Allergy Unknown Verified 10/25/18 08:45 Penicillins Allergy Rash/Hives Verified 10/25/18 08:45 radish Allergy Rash/Hives Verified 10/25/18 09:21 red dye Allergy Unknown Verified 10/25/18 08:45 GRAVY Allergy Rash/Hives Uncoded 10/25/18 09:21 Review of Systems ROS Statement: Those systems with pertinent positive or pertinent negative responses have been documented in the HPI. ROS Other: All systems not noted in ROS Statement are negative. Past Medical History Past Medical History: Atrial Fibrillation, CVA/TIA, Hypertension Additional Past Medical History / Comment(s): Stroke x 2- History of Any Multi-Drug Resistant Organisms: None Reported Past Surgical History: Appendectomy, Cholecystectomy, Orthopedic Surgery, Tonsillectomy Additional Past Surgical History / Comment(s): pt. states shes had two knee surgeries Past Anesthesia/Blood Transfusion Reactions: No Reported Reaction Past Psychological History: Depression Smoking Status: Never smoker Past Alcohol Use History: None Reported Past Drug Use History: None Reported - Past Family History Son(s) Family Medical History: Myocardial Infarction ([place]) General Exam - General Exam Comments Initial Comments: This is a well-developed well-nourished awake alert oriented 3 female Limitations: no limitations General appearance: alert, anxious, in distress Head exam: Present: atraumatic, normocephalic, normal inspection Eye exam: Present: normal appearance, PERRL, EOMI. Absent: scleral icterus, conjunctival injection, periorbital swelling ENT exam: Present: normal exam, mucous membranes moist Neck exam: Present: normal inspection, full ROM, other (No stridor JVD or bruits). Absent: tenderness, meningismus, lymphadenopathy Respiratory exam: Present: wheezes, decreased breath sounds. Absent: respiratory distress, rales, rhonchi, stridor Cardiovascular Exam: Present: irregular rhythm. Absent: systolic murmur, d iastolic murmur, rubs, gallop, clicks GI/Abdominal exam: Present: soft, normal bowel sounds. Absent: distended, tenderness, guarding, rebound, rigid Extremities exam: Present: normal inspection, full ROM, normal capillary refill. Absent: tenderness, pedal edema, joint swelling, calf tenderness Back exam: Present: normal inspection Neurological exam: Present: alert, oriented X3, CN II-XII intact Psychiatric exam: Present: normal affect, normal mood Skin exam: Present: warm, dry, intact, normal color. Absent: rash Course Vital Signs 10/25/18 10/25/18 10/25/18 08:43 09:15 09:35 Temperature 98.9 F Pulse Rate 101 H 86 88 Respiratory 22 20 Rate Blood Pressure 133/68 133/69 O2 Sat by Pulse 93 L 93 L Oximetry 10/25/18 10/25/18 09:45 10:34 Temperature Pulse Rate 91 84 Respiratory 18 Rate Blood Pressure 123/73 O2 Sat by Pulse 94 L Oximetry - Reevaluation(s) Reevaluation #1: 10/25/18 09:08 Patient was offered oxygen and refuses Medical Decision Making - Medical Decision Making I did reevaluate patient several occasions she is feeling much improved after the nebulizer treatment I did review the findings with her there is evidence of some mild CHF as well as UTI. Is asymptomatic. I did discuss with her she does not want the IV Lasix prior to discharge and she was about a half or weight. She was 69 oral medication including the increased magnesium. She'll also be given a prescription for an inhaler. She is follow-up with her doctor return when necessary - Lab Data Result diagrams: 10/25/18 09:08 10/25/18 09:08 Lab Results 10/25/18 10/25/18 10/25/18 Range/Units 09:08 09:08 09:08 WBC 14.8 H (3.8-10.6) k/uL RBC 3.97 (3.80-5.40) m/uL Hgb 11.0 L (11.4-16.0) gm/dL Hct 35.0 (34.0-46.0) % MCV 88.3 (80.0-100.0) fL MCH 27.7 (25.0-35.0) pg MCHC 31.4 (31.0-37.0) g/dL RDW 14.9 (11.5-15.5) % Plt Count 264 (150-450) k/uL Neutrophils % 90 % Lymphocytes % 5 % Monocytes % 3 % Eosinophils % 1 % Basophils % 0 % Neutrophils # 13.3 H (1.3-7.7) k/uL Lymphocytes # 0.8 L (1.0-4.8) k/uL Monocytes # 0.4 (0-1.0) k/uL Eosinophils # 0.2 (0-0.7) k/uL Basophils # 0.0 (0-0.2) k/uL Hypochromasia Marked PT (9.0-12.0) sec INR (<1.2) APTT (22.0-30.0) sec Sodium 139 (137-145) mmol/L Potassium 5.3 H (3.5-5.1) mmol/L Chloride 104 (98-107) mmol/L Carbon Dioxide 21 L (22-30) mmol/L Anion Gap 14 mmol/L BUN 22 H (7-17) mg/dL Creatinine 0.90 (0.52-1.04) mg/dL Est GFR (CKD-EPI)AfAm 71 (>60 ml/min/1.73 sqM) Est GFR (CKD-EPI)NonAf 61 (>60 ml/min/1.73 sqM) Glucose 327 H (74-99) mg/dL Calcium 9.5 (8.4-10.2) mg/dL Magnesium 1.5 L (1.6-2.3) mg/dL Total Bilirubin 1.4 H (0.2-1.3) mg/dL AST 25 (14-36) U/L ALT 8 L (9-52) U/L Alkaline Phosphatase 75 (38-126) U/L Creatine Kinase 40 (30-135) U/L Troponin I (0.000-0.034) ng/mL NT-Pro-B Natriuret Pep 4580 pg/mL Total Protein 7.6 (6.3-8.2) g/dL Albumin 4.2 (3.5-5.0) g/dL Urine Color Urine Appearance (Clear) Urine pH (5.0-8.0) Ur Specific [place] (1.001-1.035) Urine Protein (Negative) Urine Glucose (UA) (Negative) Urine Ketones (Negative) Urine Blood (Negative) Urine Nitrite (Negative) Urine Bilirubin (Negative) Urine Urobilinogen (<2.0) mg/dL Ur Leukocyte Esterase (Negative) Urine RBC (0-5) /hpf Urine WBC (0-5) /hpf Ur Squamous Epith Cells (0-4) /hpf Urine Mucus (None) /hpf Urine Yeast (Budding) (None) /hpf 10/25/18 10/25/18 10/25/18 Range/Units 09:08 09:08 09:08 WBC (3.8-10.6) k/uL RBC (3.80-5.40) m/uL Hgb (11.4-16.0) gm/dL Hct (34.0-46.0) % MCV (80.0-100.0) fL MCH (25.0-35.0) pg MCHC (31.0-37.0) g/dL RDW (11.5-15.5) % Plt Count (150-450) k/uL Neutrophils % % Lymphocytes % % Monocytes % % Eosinophils % % Basophils % % Neutrophils # (1.3-7.7) k/uL Lymphocytes # (1.0-4.8) k/uL Monocytes # (0-1.0) k/uL Eosinophils # (0-0.7) k/uL Basophils # (0-0.2) k/uL Hypochromasia PT 21.4 H (9.0-12.0) sec INR 2.2 H (<1.2) APTT 32.1 H (22.0-30.0) sec Sodium (137-145) mmol/L Potassium (3.5-5.1) mmol/L Chloride (98-107) mmol/L Carbon Dioxide (22-30) mmol/L Anion Gap mmol/L BUN (7-17) mg/dL Creatinine (0.52-1.04) mg/dL Est GFR (CKD-EPI)AfAm (>60 ml/min/1.73 sqM) Est GFR (CKD-EPI)NonAf (>60 ml/min/1.73 sqM) Glucose (74-99) mg/dL Calcium (8.4-10.2) mg/dL Magnesium (1.6-2.3) mg/dL Total Bilirubin (0.2-1.3) mg/dL AST (14-36) U/L ALT (9-52) U/L Alkaline Phosphatase (38-126) U/L Creatine Kinase (30-135) U/L Troponin I <0.012 (0.000-0.034) ng/mL NT-Pro-B Natriuret Pep pg/mL Total Protein (6.3-8.2) g/dL Albumin (3.5-5.0) g/dL Urine Color Light Red Urine Appearance Turbid H (Clear) Urine pH 6.5 (5.0-8.0) Ur Specific [place] 1.020 (1.001-1.035) Urine Protein 2+ H (Negative) Urine Glucose (UA) 1+ H (Negative) Urine Ketones Negative (Negative) Urine Blood Moderate H (Negative) Urine Nitrite Negative (Negative) Urine Bilirubin Negative (Negative) Urine Urobilinogen <2.0 (<2.0) mg/dL Ur Leukocyte Esterase Large H (Negative) Urine RBC >182 H (0-5) /hpf Urine WBC 94 H (0-5) /hpf Ur Squamous Epith Cells 23 H (0-4) /hpf Urine Mucus Occasional H (None) /hpf Urine Yeast (Budding) Rare H (None) /hpf - EKG Data -: EKG Interpreted by Me (Atrial fibrillation rate 99 QRS 156 QT since QTC 352/451 nonspecific otherw) - Radiology Data Radiology results: report reviewed (I did review the imaging and report some evidence of increased markings consistent with CHF and is mild. Questionable small effusion. Hepatomegaly noted.), image reviewed Disposition Clinical Impression: UTI (urinary tract infection), Acute asthma exacerbation, Congestive heart failure, Chronic atrial fibrillation, Hypomagnesemia Disposition: ADMITTED IP TO THIS HOSP Condition: Good Instructions (If sedation given, give patient instructions): Asthma (ED), Heart Failure (ER), Hypomagnesemia (ED), A-fib (Atrial Fibrillation) (ED) Prescriptions: Ipratropium/Albuterol Sulfate [Combivent Respimat Inhaler] 2 puff INHALATION QID #1 inhaler Cephalexin [Keflex] 500 mg PO Q6HR #40 cap Furosemide [Lasix] 20 mg PO BID #10 tab Is patient prescribed a controlled substance at d/c from ED?: No Referrals: Miranda Thompson MD [Primary Care Provider] - 1-2 days
[2018-10-25 09:28] LABS: Basophils % (A) 0 %; Eosinophils # (A) 0.2 k/uL (0-0.7); Eosinophils % (A) 1 %; Hypochromasia Marked; Lymphocytes # (A) 0.8 k/uL (1.0-4.8); Lymphocytes % (A) 5 %; MCH 27.7 pg (25.0-35.0); MCHC 31.4 g/dL (31.0-37.0); MCV 88.3 fL (80.0-100.0); Mean Platelet Volume 8.7; Monocytes # (A) 0.4 k/uL (0-1.0); Monocytes % (A) 3 %; Neutrophils # (A) 13.3 k/uL (1.3-7.7); Neutrophils % (A) 90 %; Platelet Count 264 k/uL (150-450); RBC 3.97 m/uL (3.80-5.40); RDW 14.9 % (11.5-15.5); WBC 14.8 k/uL (3.8-10.6)
[2018-10-25 09:39] LABS: Albumin 4.2 g/dL (3.5-5.0); Calcium 9.5 mg/dL (8.4-10.2); Magnesium 1.5 mg/dL (1.6-2.3); Potassium 5.3 mmol/L (3.5-5.1); Total Bilirubin 1.4 mg/dL (0.2-1.3); Total Protein 7.6 g/dL (6.3-8.2)
--- NOTE | 2018-10-25 09:39 | XR ---
EXAMINATION TYPE: XR chest 2V DATE OF EXAM: 10/25/2018 COMPARISON: 08/08/2018 HISTORY: 78-year-old female shortness of breath, difficulty breathing TECHNIQUE: AP and lateral views FINDINGS: Leftward patient rotation ultrasound and normal cardiac and mediastinal contours. Heart upper limits of normal in size. Mild interstitial prominence. Possible trace effusion. Mild hyperinflation. Some s trandy bibasilar atelectasis. IMPRESSION: Gated exam. Borderline heart size with possible trace effusions. Some mild patchy atelectasis or adrián y infiltrate at the left base. Correlate to exclude mild CHF.
[2018-10-25 09:42] LABS: INR 2.2 (<1.2); Partial Thromboplastin Time 32.1 sec (22.0-30.0); Prothrombin Time 21.4 sec (9.0-12.0)
[2018-10-25 09:44] LABS: Appearance,Urine Turbid (Clear); Bilirubin,Urine Negative (Negative); Blood,Urine Moderate (Negative); Budding Yeast,Urine Rare /hpf; Color,Urine Light Red; Glucose,Urine (UA) 1+ (Negative); Ketones,Urine Negative (Negative); Leukocyte Esterase,Urine Large (Negative); Mucus,Urine Occasional /hpf; Nitrite,Urine Negative (Negative); PH, Urine 6.5 (5.0-8.0); Protein,Urine 2+ (Negative); RBC,Urine >182 /hpf (0-5); Squamous Epithelial Cell,Urine 23 /hpf (0-4); Urobilinogen,Urine <2.0 mg/dL (<2.0)
[2018-10-25 10:35] VITALS: RESP 18
[2018-10-25] MEDS ORDERED: MAGNESIUM OXIDE 400 MG TAB PO STA (10:40)
[2018-10-25] MEDS ORDERED: FUROSEMIDE 10 MG/ML 4 ML VIAL IV STA (10:40)
[2018-10-25 11:33] VITALS: BP 129/73; PULSE 86; TEMP 98.2
== END 2018-10-25 11:33 | disposition other institution (70) ==
LOC: EC 08:37
DX: J45.901 Unspecified asthma with (acute) exacerbation (principal); I48.2 Chronic atrial fibrillation; I11.0 Hypertensive heart disease with heart failure; I50.9 Heart failure, unspecified; N39.0 Urinary tract infection, site not specified; E83.42 Hypomagnesemia; Z86.73 Personal history of transient ischemic attack (TIA), and cerebral infarction without residual deficits; Z82.49 Family history of ischemic heart disease and other diseases of the circulatory system; Z79.01 Long term (current) use of anticoagulants; Z79.4 Long term (current) use of insulin; Z79.899 Other long term (current) drug therapy; Z88.7 Allergy status to serum and vaccine; Z91.048 Other nonmedicinal substance allergy status; Z88.6 Allergy status to analgesic agent; Z88.0 Allergy status to penicillin; Z91.018 Allergy to other foods; Z53.8 Procedure and treatment not carried out for other reasons; Z53.29 Procedure and treatment not carried out because of patient's decision for other reasons
CPT/HCPCS: 36415; 71046; 80053; 81001; 82550; 83735; 83880; 84484; 85025; 85610; 85730; 87077; 87086; 87186; 93005; 94640; 99285

== ENCOUNTER → 2019-01-22 | Outpatient (CLI) | payer MEDICARE ==
--- NOTE | 2019-01-28 07:40 | ECHOF ---
Referral Reason:I48.1 Persistent atrial fib, I10 hypertension MEASUREMENTS -------- HEIGHT: 165.1 cm WEIGHT: 87.1 kg BP: RVIDd: 2.8 cm (< 3.3) IVSd: 1.1 cm (0.6 - 1.1) LVIDd: 5.4 cm (3.9 - 5.3) LVPWd: 1.1 cm (0.6 - 1.1) IVSs: 1.2 cm LVIDs: 5.0 cm LVPWs: 1.3 cm LAESV Index (A-L): 58.66 ml/m Ao Diam: 2.3 cm (2.0 - 3.7) AV Cusp: 1.4 cm (1.5 - 2.6) LA Diam: 3.5 cm (2.7 - 3.8) AR PHT: 118 ms RAP: 20.00 mmHg RVSP: 69.00 mmHg FINDINGS -------- Atrial fibrillation. This was a technically adequate study. The left ventricular size is normal. Left ventricular wall thickness is normal. There is severe g lobal hypokinesis of LV . Overall left ventricular systolic function is severely impaired with, an EF between 20 - 25 %. The right ventricle is normal in size. The right ventricular systolic function is mildly impaired. LA is severely dilated >40 ml/m2 The right atrial size is normal. Interatrial and interventricular septum intact. There is moderate aortic valve sclerosis. Trace amount of aortic regurgitation. Moderate mitral annular calcification present. [id number] mitral regurgitation is present. The tricuspid valve appears structurally normal. Moderate tricuspid regurgitation present. There is severe pulmonary hypertension. The right ventricular systolic pressure, as measured by Doppler, is 69.00mmHg. Moderate pulmonic regurgitation. The aortic root size is normal. The inferior vena cava is dilated with no significant inspiratory collapse which is consistent estima faby right atrial pressure of >20 mmHg. There is no pericardial effusion. CONCLUSIONS -------- 1. Atrial fibrillation. 2. This was a technically adequate study. 3. The left ventricular size is normal. 4. Left ventricular wall thickness is normal. 5. There is severe global hypokinesis of LV . 6. Overall left ventricular systolic function is severely impaired with, an EF between 20 - 25 %. 7. The right ventricular systolic function is mildly impaired. 8. LA is severely dilated >40 ml/m2 9. There is moderate aortic valve sclerosis. 10. Trace amount of aortic regurgitation. 11. Moderate mitral annular calcification present. 12. Whmdccny-ff-zsukkc mitral regurgitation is present. 13. The tricuspid valve appears structurally normal. 14. Moderate tricuspid regurgitation present. 15. There is severe pulmonary hypertension. 16. Moderate pulmonic regurgitation. 17. The aortic root size is normal. 18. The inferior vena cava is dilated with no significant inspiratory collapse which is consistent es timated right atrial pressure of >20 mmHg. 19. There is no pericardial effusion. MEDICAL ANTHROPOLOGY DIRECTOR: Dunia Terrell RDCS
== END | disposition home or self-care (01) ==
LOC: RADECHMAIN 15:21
PROVIDERS: ATTEND Internal Medicine Cardiovascular Disease
DX: I48.1 Persistent atrial fibrillation (principal); I10 Essential (primary) hypertension
CPT/HCPCS: 93306

== ENCOUNTER 2019-01-29 14:11 | Inpatient (IN) | payer MEDICARE ==
[2019-01-29] MEDS ORDERED: IPRATROPIUM-ALBUTEROL 3 ML NEB INHALATION STA (15:04)
--- NOTE | 2019-01-29 15:22 | XR ---
EXAMINATION TYPE: XR chest 2V DATE OF EXAM: 01/29/2019 COMPARISON: Chest x-ray October 25, 2018. HISTORY: Chest tightness and shortness of breath. TECHNIQUE: Frontal and lateral views of the chest are obtained. FINDINGS: There is chronic parenchymal changes with new bibasilar opacities. Diminished inspiration on current study. The cardiac silhouette size is enlarged with atherosclerotic aorta. The osseous structures are demineralized. IMPRESSION: Suspect CHF exacerbation on background chronic parenchymal changes there is cardiomegaly with new small bilateral pleural effusions and mild central vascular congestion present. There is ass ociated bibasilar atelectasis and/or infiltrate noted.
--- NOTE | 2019-01-29 15:35 | ED ---
General Adult HPI - General Chief complaint: Shortness of Breath Stated complaint: SOB Time Seen by Provider: 01/29/19 14:35 Source: patient, family, RN notes reviewed Mode of arrival: ambulatory Limitations: no limitations - History of Present Illness Initial comments: 78-year-old female with a past medical history of atrial fibrillation, hypertension, CVA resents to the emergency department for a chief complaint of shortness of breath. Son is at bedside and is also giving history. Son states that patient has been short of breath since she was diagnosed with atrial fibrillation in July. States that some days are worse than others. The patien t states that today she got up to the bathroom and just could not catch her breath again. States she has been taking her medications. Denies any chest pain. Does admit to history of asthma as well and has been taking her inhalers at home. Denies diaphoresis. States she has an appointment with a insulation worker furnace installer on Sunday. Patient has no other complaints at this time including chest pain, abdominal pain, nausea or vomiting, headache, or visual changes. - Related Data Home Medications Medication Instructions Recorded Confirmed Carvedilol [Coreg] 25 mg PO BID 05/08/17 01/29/19 Cholecalciferol [Vitamin D3 (25 5,000 unit PO DAILY 05/08/17 01/29/19 Mcg = 1000 Iu)] Ferrous Sulfate [Iron (65 MG 325 mg PO DAILY 05/08/17 01/29/19 Elemental)] Magnesium Oxide [Mag-Ox] 250 mg PO HS 05/08/17 01/29/19 Vitamin E (Dl,Tocopheryl Acet) 400 unit PO DAILY 05/08/17 01/29/19 [Vitamin E] Warfarin [Coumadin] 6 mg PO MOTUWEFRSA 05/08/17 01/29/19 Warfarin [Coumadin] 9 mg PO SUTH 05/08/17 01/29/19 metFORMIN HCL [Glucophage] 500 mg PO TID 05/08/17 01/29/19 Ascorbic Acid [Vitamin C] 500 mg PO DAILY 08/07/18 01/29/19 Calcium Carbonate [Calcium] 600 mg PO DAILY 08/07/18 01/29/19 Cyanocobalamin [Vitamin B-12] 500 mcg PO DAILY 08/07/18 01/29/19 Insulin Detemir (Levemir) [Levemir] 25 unit SQ HS 08/07/18 01/29/19 glipiZIDE [Glucotrol] 10 mg PO BID 10/25/18 01/29/19 Albuterol Inhaler [Ventolin Hfa 1 - 2 puff INHALATION RT-Q4H PRN 01/29/19 01/29/19 Inhaler] Albuterol Nebulized [Ventolin 2.5 mg INHALATION RT-Q4H PRN 01/29/19 01/29/19 Nebulized] Cranberry Fruit Extract [Cranberry] 500 mg PO DAILY 01/29/19 01/29/19 Fluticasone/Salmeterol [Advair 1 inhalation PO RT-BID 01/29/19 01/29/19 100-50 Diskus] Previous Rx's Medication Instructions Recorded Atorvastatin [Lipitor] 10 mg PO HS tab 05/11/17 Diltiazem Cd [Cardizem CD] 240 mg PO DAILY #30 cap.er.24h 08/09/18 Allergies Allergy/AdvReac Type Severity Reaction Status Date / Time influenza virus vaccine qs Allergy Unknown Unknown Verified 01/29/19 15:36 2016- (36 months up) [From Fluarix Quad 0098-2433 (PF)] asparagus Allergy Rash/Hives Verified 01/29/19 15:36 aspirin Allergy Unknown Verified 01/29/19 15:36 Penicillins Allergy Rash/Hives Verified 01/29/19 15:36 radish Allergy Rash/Hives Verified 01/29/19 15:36 red dye Allergy Unknown Verified 01/29/19 15:36 GRAVY Allergy Rash/Hives Uncoded 10/25/18 09:21 Review of Systems ROS Statement: Those systems with pertinent positive or pertinent negative responses have been documented in the HPI. ROS Other: All systems not noted in ROS Statement are negative. Past Medical History Past Medical History: Atrial Fibrillation, CVA/TIA, Hypertension Additional Past Medical History / Comment(s): Stroke x 2- History of Any Multi-Drug Resistant Organisms: None Reported Past Surgical History: Appendectomy, Cholecystectomy, Orthopedic Surgery, Tonsillectomy Additional Past Surgical History / Comment(s): pt. states shes had two knee surgeries Past Anesthesia/Blood Transfusion Reactions: No Reported Reaction Past Psychological History: Depression Smoking Status: Never smoker Past Alcohol Use History: None Reported Past Drug Use History: None Reported - Past Family History Son(s) Family Medical History: Myocardial Infarction ([place]) General Exam Limitations: no limitations General appearance: alert, in no apparent distress Head exam: Present: atraumatic, normocephalic, normal inspection Eye exam: Present: normal appearance, PERRL, EOMI. Absent: scleral icterus, conjunctival injection, periorbital swelling ENT exam: Present: normal exam, mucous membranes moist Neck exam: Present: normal inspection, full ROM. Absent: tenderness, meningismus, lymphadenopathy Respiratory exam: Present: normal lung sounds bilaterally. Absent: respiratory distress, wheezes, rales, rhonchi, stridor Cardiovascular Exam: Present: regular rate, normal rhythm, normal heart sounds. Absent: systolic murmur, diastolic murmur, rubs, gallop, clicks GI/Abdominal exam: Present: soft, normal bowel sounds. Absent: distended, tenderness, guarding, rebound, rigid Neurological exam: Present: alert Psychiatric exam: Present: normal affect, normal mood Course Vital Signs 01/29/19 01/29/19 01/29/19 14:29 15:13 15:34 Temperature 98.1 F Pulse Rate 92 90 Respiratory 20 22 Rate Blood Pressure 135/86 O2 Sat by Pulse 91 L Oximetry 01/29/19 01/29/19 15:42 16:21 Temperature Pulse Rate 89 100 Respiratory 16 Rate Blood Pressure 112/71 O2 Sat by Pulse 95 Oximetry EKG Findings - EKG Comments: EKG Findings:: Atrial fibrillation, ventricular rate 102, QRS 158, QTC 513, compared to previous EKG from 10/25/2018 which appears similar. Medical Decision Making - Medical Decision Making 28-year-old female with a past medical history of atrial fibrillation, hypertension presents for chief complaint of shortness of breath. This has been ongoing off and on for about 6 months. Patient also has a history of asthma believes this could be an exacerbation. Patient has Lasix at home but does not take it. On exam lungs are clear to auscultation bilaterally however patient does appear mildly short of breath. No respiratory distress. Initially 91% on room air. CBC is unremarkable. However INR is 5.9 which is supratherapeutic, Coumadin will be held. CMP unremarkable. BNP is 7430 and patient has small bilateral pleural effusions which are new with mild central vascular congestion. Suspect CHF exacerbation. I started on Lasix. Will be admitted. Patient did have a echocardiogram on January 22 that showed a ejection fraction between 20 and 25%. - Lab Data Result diagrams: 01/29/19 15:10 01/29/19 15:10 Lab Results 01/29/19 01/29/19 01/29/19 Range/Units 15:10 15:10 15:10 WBC 11.2 H (3.8-10.6) k/uL RBC 4.02 (3.80-5.40) m/uL Hgb 10.7 L (11.4-16.0) gm/dL Hct 34.2 (34.0-46.0) % MCV 85.1 (80.0-100.0) fL MCH 26.6 (25.0-35.0) pg MCHC 31.3 (31.0-37.0) g/dL RDW 16.6 H (11.5-15.5) % Plt Count 335 (150-450) k/uL Neutrophils % 83 % Lymphocytes % 9 % Monocytes % 4 % Eosinophils % 2 % Basophils % 1 % Neutrophils # 9.3 H (1.3-7.7) k/uL Lymphocytes # 1.0 (1.0-4.8) k/uL Monocytes # 0.5 (0-1.0) k/uL Eosinophils # 0.2 (0-0.7) k/uL Basophils # 0.1 (0-0.2) k/uL Hypochromasia Moderate Anisocytosis Slight PT (9.0-12.0) sec INR (<1.2) APTT (22.0-30.0) sec Sodium 140 (137-145) mmol/L Potassium 4.8 (3.5-5.1) mmol/L Chloride 105 (98-107) mmol/L Carbon Dioxide 22 (22-30) mmol/L Anion Gap 13 mmol/L BUN 25 H (7-17) mg/dL Creatinine 0.97 (0.52-1.04) mg/dL Est GFR (CKD-EPI)AfAm 65 (>60 ml/min/1.73 sqM) Est GFR (CKD-EPI)NonAf 56 (>60 ml/min/1.73 sqM) Glucose 200 H (74-99) mg/dL Calcium 9.6 (8.4-10.2) mg/dL Magnesium 1.4 L (1.6-2.3) mg/dL Total Bilirubin 1.0 (0.2-1.3) mg/dL AST 31 (14-36) U/L ALT 18 (9-52) U/L Alkaline Phosphatase 79 (38-126) U/L Troponin I (0.000-0.034) ng/mL NT-Pro-B Natriuret Pep 7430 pg/mL Total Protein 7.4 (6.3-8.2) g/dL Albumin 4.0 (3.5-5.0) g/dL 01/29/19 01/29/19 Range/Units 15:10 15:10 WBC (3.8-10.6) k/uL RBC (3.80-5.40) m/uL Hgb (11.4-16.0) gm/dL Hct (34.0-46.0) % MCV (80.0-100.0) fL MCH (25.0-35.0) pg MCHC (31.0-37.0) g/dL RDW (11.5-15.5) % Plt Count (150-450) k/uL Neutrophils % % Lymphocytes % % Monocytes % % Eosinophils % % Basophils % % Neutrophils # (1.3-7.7) k/uL Lymphocytes # (1.0-4.8) k/uL Monocytes # (0-1.0) k/uL Eosinophils # (0-0.7) k/uL Basophils # (0-0.2) k/uL Hypochromasia Anisocytosis PT 57.1 H (9.0-12.0) sec INR 5.9 H* (<1.2) APTT 41.7 H (22.0-30.0) sec Sodium (137-145) mmol/L Potassium (3.5-5.1) mmol/L Chloride (98-107) mmol/L Carbon Dioxide (22-30) mmol/L Anion Gap mmol/L BUN (7-17) mg/dL Creatinine (0.52-1.04) mg/dL Est GFR (CKD-EPI)AfAm (>60 ml/min/1.73 sqM) Est GFR (CKD-EPI)NonAf (>60 ml/min/1.73 sqM) Glucose (74-99) mg/dL Calcium (8.4-10.2) mg/dL Magnesium (1.6-2.3) mg/dL Total Bilirubin (0.2-1.3) mg/dL AST (14-36) U/L ALT (9-52) U/L Alkaline Phosphatase (38-126) U/L Troponin I <0.012 (0.000-0.034) ng/mL NT-Pro-B Natriuret Pep pg/mL Total Protein (6.3-8.2) g/dL Albumin (3.5-5.0) g/dL Disposition Clinical Impression: Congestive heart failure, Elevated INR, Pleural effusion Disposition: ADMITTED IP TO THIS HOSP Condition: Fair Is patient prescribed a controlled substance at d/c from ED?: No Referrals: Miranda Thompson MD [Primary Care Provider] - 1-2 days Time of Disposition: 16:56
[2019-01-29 15:37] LABS: Calcium 9.6 mg/dL (8.4-10.2); Magnesium 1.4 mg/dL (1.6-2.3); Total Protein 7.4 g/dL (6.3-8.2)
[2019-01-29 15:38] LABS: Anisocytosis Slight; Basophils # (A) 0.1 k/uL (0-0.2); Basophils % (A) 1 %; Eosinophils # (A) 0.2 k/uL (0-0.7); Eosinophils % (A) 2 %; HCT 34.2 % (34.0-46.0); HGB 10.7 gm/dL (11.4-16.0); Hypochromasia Moderate; Lymphocytes % (A) 9 %; MCH 26.6 pg (25.0-35.0); MCHC 31.3 g/dL (31.0-37.0); MCV 85.1 fL (80.0-100.0); Mean Platelet Volume 8.4; Monocytes # (A) 0.5 k/uL (0-1.0); Monocytes % (A) 4 %; Neutrophils # (A) 9.3 k/uL (1.3-7.7); Neutrophils % (A) 83 %; Platelet Count 335 k/uL (150-450); Potassium 4.8 mmol/L (3.5-5.1); RBC 4.02 m/uL (3.80-5.40); RDW 16.6 % (11.5-15.5); WBC 11.2 k/uL (3.8-10.6)
[2019-01-29] MEDS ORDERED: FUROSEMIDE 10 MG/ML 4 ML VIAL IV STA (15:44)
[2019-01-29 15:53] LABS: Partial Thromboplastin Time 41.7 sec (22.0-30.0); Prothrombin Time 57.1 sec (9.0-12.0)
[2019-01-29 15:59] LABS: INR 5.9 (<1.2)
[2019-01-29] MEDS ORDERED: ALBUTEROL NEBULIZED 2.5 MG/3 ML INHALATION PRN (16:49)
[2019-01-29] MEDS: FUROSEMIDE 10 MG/ML 4 ML VIAL IV SCH (17:54)
[2019-01-29] MEDS: CARVEDILOL 12.5 MG TAB PO SCH (17:57)
[2019-01-29] MEDS: NITROGLYCERIN OINT 1 INCH/GM PACKET TOPICAL SCH ×2 (17:57→20:22)
[2019-01-29] MEDS: INSULIN ASPART (NovoLOG) 100 UNIT/ML VIAL SQ SCH ×2 (17:58→21:15)
[2019-01-29 18:01] LABS: Glucose,Whole Blood 170 mg/dL (75-99)
[2019-01-29] MEDS: ATORVASTATIN 10 MG TAB PO SCH (20:22)
[2019-01-29] MEDS: MAGNESIUM OXIDE 400 MG TAB PO SCH (20:22)
[2019-01-29 21:03] LABS: Glucose,Whole Blood 165 mg/dL (75-99)
[2019-01-30] MEDS ORDERED: ACETAMINOPHEN TAB 325 MG TAB PO PRN (04:59)
[2019-01-30] MEDS: FUROSEMIDE 10 MG/ML 4 ML VIAL IV SCH ×2 (06:00→17:27)
[2019-01-30] MEDS: CARVEDILOL 12.5 MG TAB PO SCH ×2 (06:26→17:27)
[2019-01-30 06:36] LABS: Glucose,Whole Blood 199 mg/dL (75-99)
[2019-01-30] MEDS: INSULIN ASPART (NovoLOG) 100 UNIT/ML VIAL SQ SCH ×4 (06:39→20:55)
[2019-01-30 07:29] LABS: INR 4.5 (<1.2); Prothrombin Time 42.9 sec (9.0-12.0)
[2019-01-30] MEDS: ASCORBIC ACID 500 MG TAB PO SCH (08:44)
[2019-01-30] MEDS: CALCIUM CARBONATE 500 MG CHEWABLE PO SCH (08:44)
[2019-01-30] MEDS: NITROGLYCERIN OINT 1 INCH/GM PACKET TOPICAL SCH ×4 (08:44→20:46)
[2019-01-30] MEDS: FERROUS SULFATE 325 MG TAB PO SCH (08:44)
[2019-01-30] MEDS: CYANOCOBALAMIN 500 MCG TAB PO SCH (08:44)
[2019-01-30] MEDS ORDERED: DILTIAZEM CD 240 MG CAP.ER.24H PO SCH (09:00)
[2019-01-30] MEDS ORDERED: MAGNESIUM SULFATE-D5W PMX 1 GM in DEXTROSE/WATER 1 100ML.BAG IVPB ONE (09:00)
[2019-01-30] MEDS ORDERED: IPRATROPIUM-ALBUTEROL 3 ML NEB INHALATION PRN (09:15)
--- NOTE | 2019-01-30 09:33 | P.HPIM ---
History of Present Illness H&P Date: 01/30/19 Chief Complaint: Shortness of breath This is a 78-year-old female, a patient of Dr. Thompson. She has a known past medical history of atrial fibrillation, hypertension, CVA, asthma, diabetes mellitus and hyperlipidemia. Patient reports increase in shortness of breath yesterday. She is having difficulty completing her usual activities. She has swelling in the lower extremities but does report that this is chronic. She had been on Lasix a while ago and reports that her doctor took her off of it. Patient is also noted some weight gain over the last few days. She presents to the ER with shortness of breath chest x-ray showing small bilateral pleural effusions mild vascular venous congestion and cardiomegaly. BNP elevated at 7430. Patient is being treated for CHF exacerbation and started on IV Lasix in the ER. Patient has noted improvement in her shortness of breath since being started on the Lasix. She denies any chest pain, cough, fever, chills, sweats. Denies any nausea or vomiting, bowel movement changes or urinary symptoms. Cardiology is on consult. Echo from 01/22/2019 is worse than echo in July. It shows an EF of 20-25% left Atrium severely dilated. Moderate to severe mitral regurgitation, moderate tricuspid regurgitation and moderate pulmonary regurgitation. She also noted to be wheezy yesterday. And had been taking her nebulizer treatments. Her operating room manager is Dr. HEIDY Levi. Patient uses a walker to help her ambulate. Her son lives with her. Review of Systems Please refer to HPI otherwise unremarkable Past Medical History Past Medical History: Atrial Fibrillation, CVA/TIA, Hypertension Additional Past Medical History / Comment(s): Stroke x 2- History of Any Multi-Drug Resistant Organisms: None Reported Past Surgical History: Appendectomy, Cholecystectomy, Orthopedic Surgery, To nsillectomy Additional Past Surgical History / Comment(s): pt. states shes had two knee surgeries Past Anesthesia/Blood Transfusion Reactions: No Reported Reaction Past Psychological History: Depression Additional Psychological History / Comment(s): pt. states she had depression after her , pt. states the depression is no longer an issue Smoking Status: Never smoker Past Alcohol Use History: None Reported Past Drug Use History: None Reported - Past Family History Son(s) Family Medical History: Myocardial Infarction ([place]) Medications and Allergies Home Medications Medication Instructions Recorded Confirmed Type Carvedilol [Coreg] 25 mg PO BID 05/08/17 01/29/19 History Cholecalciferol [Vitamin D3 (25 5,000 unit PO DAILY 05/08/17 01/29/19 History Mcg = 1000 Iu)] Ferrous Sulfate [Iron (65 MG 325 mg PO DAILY 05/08/17 01/29/19 History Elemental)] Magnesium Oxide [Mag-Ox] 250 mg PO HS 05/08/17 01/29/19 History Vitamin E (Dl,Tocopheryl Acet) 400 unit PO DAILY 05/08/17 01/29/19 History [Vitamin E] Warfarin [Coumadin] 6 mg PO MOTUWEFRSA 05/08/17 01/29/19 History Warfarin [Coumadin] 9 mg PO SUTH 05/08/17 01/29/19 History metFORMIN HCL [Glucophage] 500 mg PO TID 05/08/17 01/29/19 History Atorvastatin [Lipitor] 10 mg PO HS tab 05/11/17 01/29/19 Rx Ascorbic Acid [Vitamin C] 500 mg PO DAILY 08/07/18 01/29/19 History Calcium Carbonate [Calcium] 600 mg PO DAILY 08/07/18 01/29/19 History Cyanocobalamin [Vitamin B-12] 500 mcg PO DAILY 08/07/18 01/29/19 History Insulin Detemir (Levemir) [Levemir] 25 unit SQ HS 08/07/18 01/29/19 History Diltiazem Cd [Cardizem CD] 240 mg PO DAILY #30 cap.er.24h 08/09/18 01/29/19 Rx glipiZIDE [Glucotrol] 10 mg PO BID 10/25/18 01/29/19 History Albuterol Inhaler [Ventolin Hfa 1 - 2 puff INHALATION RT-Q4H PRN 01/29/19 01/29/19 History Inhaler] Albuterol Nebulized [Ventolin 2.5 mg INHALATION RT-Q4H PRN 01/29/19 01/29/19 History Nebulized] Cranberry Fruit Extract [Cranberry] 500 mg PO DAILY 01/29/19 01/29/19 History Fluticasone/Salmeterol [Advair 1 inhalation PO RT-BID 01/29/19 01/29/19 History 100-50 Diskus] Allergies Allergy/AdvReac Type Severity Reaction Status Date / Time influenza virus vaccine qs Allergy Unknown Unknown Verified 01/29/19 15:36 2017- (36 months up) [From Fluarix Quad 2520-1209 (PF)] asparagus Allergy Rash/Hives Verified 01/29/19 15:36 aspirin Allergy Unknown Verified 01/29/19 15:36 Penicillins Allergy Rash/Hives Verified 01/29/19 15:36 radish Allergy Rash/Hives Verified 01/29/19 15:36 red dye Allergy Unknown Verified 01/29/19 15:36 GRAVY Allergy Rash/Hives Uncoded 10/25/18 09:21 Physical Exam Vitals: Vital Signs Temp Pulse Pulse Resp BP BP Pulse Ox 01/30/19 05:37 80 01/30/19 05:25 80 01/30/19 04:00 97.9 F 70 18 137/70 91 L 01/29/19 23:37 75 16 01/29/19 23:34 97.6 F 75 16 128/76 94 L 01/29/19 20:00 97.5 F L 81 16 133/72 92 L 01/29/19 19:40 94 L 01/29/19 17:36 98 16 114/74 95 01/29/19 16:21 100 16 112/71 95 01/29/19 15:42 89 01/29/19 15:34 90 01/29/19 15:13 22 01/29/19 14:29 98.1 F 92 20 135/86 91 L Intake and Output 01/29/19 01/30/19 01/30/19 22:59 06:59 14:59 Intake Total 10 240 Output Total 200 450 401 Balance -190 -450 -161 Intake: IV 10 Invasive Line 1 10 Oral 240 Output: Urine 200 450 400 Stool 1 Other: Voiding Method Toilet Toilet Bedside Commode Bedside Commode # Voids 2 1 1 Weight 93.1 kg Head normocephalic Neck supple Lungs expiratory wheeze noted along the left lung Heart irregular. Atrial fibrillation on monitor. Rate controlled. Abdomen is soft nontender nondistended positive bowel sounds no hepatosplenomegaly Extremities positive edema bilateral lower extremities Neuro alert and orientated to 3 Results CBC & Chem 7: 01/29/19 15:10 01/29/19 15:10 Labs: Abnormal Lab Results - Last 24 Hours (Table) 01/29/19 01/29/19 01/29/19 Range/Units 15:10 15:10 15:10 WBC 11.2 H (3.8-10.6) k/uL Hgb 10.7 L (11.4-16.0) gm/dL RDW 16.6 H (11.5-15.5) % Neutrophils # 9.3 H (1.3-7.7) k/uL PT 57.1 H (9.0-12.0) sec INR 5.9 H* (<1.2) APTT 41.7 H (22.0-30.0) sec BUN 25 H (7-17) mg/dL Glucose 200 H (74-99) mg/dL POC Glucose (mg/dL) (75-99) mg/dL Magnesium 1.4 L (1.6-2.3) mg/dL 01/29/19 01/29/19 01/30/19 Range/Units 18:00 21:02 06:35 WBC (3.8-10.6) k/uL Hgb (11.4-16.0) gm/dL RDW (11.5-15.5) % Neutrophils # (1.3-7.7) k/uL PT (9.0-12.0) sec INR (<1.2) APTT (22.0-30.0) sec BUN (7-17) mg/dL Glucose (74-99) mg/dL POC Glucose (mg/dL) 170 H 165 H 199 H (75-99) mg/dL Magnesium (1.6-2.3) mg/dL 01/30/19 01/30/19 Range/Units 06:57 06:57 WBC (3.8-10.6) k/uL Hgb (11.4-16.0) gm/dL RDW (11.5-15.5) % Neutrophils # (1.3-7.7) k/uL PT 42.9 H (9.0-12.0) sec INR 4.5 H (<1.2) APTT (22.0-30.0) sec BUN (7-17) mg/dL Glucose (74-99) mg/dL POC Glucose (mg/dL) (75-99) mg/dL Magnesium 1.3 L (1.6-2.3) mg/dL Assessment and Plan Assessment: 1. Acute systolic CHF exacerbation: Patient started on Lasix 40 mg IV every 12 hours in the ER. Cardiology on consult. Elevated BNP 7430. Chest x-ray showing evidence of small bilateral pleural effusions and mild vascular venous congestion. Echo shows an EF of 20-25% left Atrium severely dilated, moderate to severe mitral regurgitation, moderate tricuspid regurgitation and moderate pulmonary regurgitation 2. Hypomagnesemia and patient receiving magnesium supplement: Check magnesium level in a.m. 3. Coagulopathy: Patient is on Coumadin for atrial fibrillation. INR supratherapeutic 5.9 down to 4.5. Continue to monitor PT/INRs. Hold Coumadin for now. No signs of bleeding 4. Leukocytosis likely reactive. Repeat CBC and monitor. 5. Known history of chronic persistent atrial fibrillation: Anticoagulated with Coumadin. Continue Coreg and Cardizem for rate control. Coumadin on hold until INR becomes therapeutic 6. Essential hypertension: Blood pressures are stable 7. Diabetes mellitus type 2: Resume patient's Levemir and glipizide. Hold metformin for now during hospitalization. Check hemoglobin A1c. Continue Accu- Cheks every before meals and at bedtime with sliding scale coverage 8. History of mild intermittent asthma: Resume patient's inhalers. We'll change DuoNeb updrafts to 4 times a day and as needed. She does have some underlying wheezing likely related to her CHF. We will monitor. 9. History of CVAs 10. Essential hypertension: Blood pressures are stable. Continue current medications. GI prophylaxis Pepcid and DVT prophylaxis, Coumadin currently on hold due to elevated INR Time with Patient: Greater than 30 (Greater than 50% of the total time spent in counseling and coordination of care.I performed an examination of the patient and discussed their management with the physician Evaporator Operator Molasses. I have reviewed the Physician Evaporator Operator Molasses's notes and agree with the documented findings and plan of care)
--- NOTE | 2019-01-30 10:24 | P.CRDCN ---
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 Chest x-ray on presentation here showed CHF exacerbation on background of chronic parenchymal changes, cardiomegaly, new small bilateral pleural effusions. EKG showed atrial fibrillation with moderately rapid ventricular response. Blood pressure 120/70 with a heart rate in the 70s, 95% on room air. White blood cell count 11.2, hemoglobin 10.7, platelet count 335. INR on admission 5.9, 4.5 this morning. Sodium 140, potassium 4.8, BUN 25 and creatinine 0.9. Magnesium level on admission 1.4, 1.3 this morning. Troponin 0.012, BNP level 7430. Patient was initiated on IV Lasix in the emergency room, she states that she has been putting out a significant amount of urine since that was initiated, overall she does state that her breathing is improving, she is still however short of breath and continues to have some bilateral peripheral edema. Patient had an ech ocardiogram with Doppler study performed this month which revealed an ejection fraction of 20-25%, moderate to severe mitral regurgitation, moderate tricuspid regurg and severe pulmonary hypertension. Past Medical History Past Medical History: Atrial Fibrillation, CVA/TIA, Hypertension Additional Past Medical History / Comment(s): Stroke x 2- History of Any Multi-Drug Resistant Organisms: None Reported Past Surgical History: Appendectomy, Cholecystectomy, Orthopedic Surgery, Tons illectomy Additional Past Surgical History / Comment(s): pt. states shes had two knee surgeries Past Anesthesia/Blood Transfusion Reactions: No Reported Reaction Past Psychological History: Depression Additional Psychological History / Comment(s): pt. states she had depression after her , pt. states the depression is no longer an issue Smoking Status: Never smoker Past Alcohol Use History: None Reported Past Drug Use History: None Reported - Past Family History Son(s) Family Medical History: Myocardial Infarction ([place]) Medications and Allergies Home Medications Medication Instructions Recorded Confirmed Type Carvedilol [Coreg] 25 mg PO BID 05/08/17 01/29/19 History Cholecalciferol [Vitamin D3 (25 5,000 unit PO DAILY 05/08/17 01/29/19 History Mcg = 1000 Iu)] Ferrous Sulfate [Iron (65 MG 325 mg PO DAILY 05/08/17 01/29/19 History Elemental)] Magnesium Oxide [Mag-Ox] 250 mg PO HS 05/08/17 01/29/19 History Vitamin E (Dl,Tocopheryl Acet) 400 unit PO DAILY 05/08/17 01/29/19 History [Vitamin E] Warfarin [Coumadin] 6 mg PO MOTUWEFRSA 05/08/17 01/29/19 History Warfarin [Coumadin] 9 mg PO SUTH 05/08/17 01/29/19 History metFORMIN HCL [Glucophage] 500 mg PO TID 05/08/17 01/29/19 History Atorvastatin [Lipitor] 10 mg PO HS tab 05/11/17 01/29/19 Rx Ascorbic Acid [Vitamin C] 500 mg PO DAILY 08/07/18 01/29/19 History Calcium Carbonate [Calcium] 600 mg PO DAILY 08/07/18 01/29/19 History Cyanocobalamin [Vitamin B-12] 500 mcg PO DAILY 08/07/18 01/29/19 History Insulin Detemir (Levemir) [Levemir] 25 unit SQ HS 08/07/18 01/29/19 History Diltiazem Cd [Cardizem CD] 240 mg PO DAILY #30 cap.er.24h 08/09/18 01/29/19 Rx glipiZIDE [Glucotrol] 10 mg PO BID 10/25/18 01/29/19 History Albuterol Inhaler [Ventolin Hfa 1 - 2 puff INHALATION RT-Q4H PRN 01/29/19 01/29/19 History Inhaler] Albuterol Nebulized [Ventolin 2.5 mg INHALATION RT-Q4H PRN 01/29/19 01/29/19 History Nebulized] Cranberry Fruit Extract [Cranberry] 500 mg PO DAILY 01/29/19 01/29/19 History Fluticasone/Salmeterol [Advair 1 inhalation PO RT-BID 01/29/19 01/29/19 History 100-50 Diskus] Allergies Allergy/AdvReac Type Severity Reaction Status Date / Time influenza virus vaccine qs Allergy Unknown Unknown Verified 01/29/19 15:36 2016- (36 months up) [From Fluarix Quad 9850-1205 (PF)] asparagus Allergy Rash/Hives Verified 01/29/19 15:36 aspirin Allergy Unknown Verified 01/29/19 15:36 Penicillins Allergy Rash/Hives Verified 01/29/19 15:36 radish Allergy Rash/Hives Verified 01/29/19 15:36 red dye Allergy Unknown Verified 01/29/19 15:36 GRAVY Allergy Rash/Hives Uncoded 10/25/18 09:21 Physical Exam Vitals: Vital Signs Temp Pulse Pulse Resp BP BP Pulse Ox 01/30/19 08:00 97.8 F 70 20 128/70 95 01/30/19 05:37 80 01/30/19 05:25 80 01/30/19 04:00 97.9 F 70 18 137/70 91 L 01/29/19 23:37 75 16 01/29/19 23:34 97.6 F 75 16 128/76 94 L 01/29/19 20:00 97.5 F L 81 16 133/72 92 L 01/29/19 19:40 94 L 01/29/19 17:36 98 16 114/74 95 01/29/19 16:21 100 16 112/71 95 01/29/19 15:42 89 01/29/19 15:34 90 01/29/19 15:13 22 01/29/19 14:29 98.1 F 92 20 135/86 91 L Intake and Output 01/29/19 01/30/19 01/30/19 22:59 06:59 14:59 Intake Total 10 240 Output Total 200 450 401 Balance -190 -450 -161 Intake: IV 10 Invasive Line 1 10 Oral 240 Output: Urine 200 450 400 Stool 1 Other: Voiding Method Toilet Toilet Bedside Commode Bedside Commode # Voids 2 1 1 Weight 93.1 kg PHYSICAL EXAMINATION: GENERAL: 78-year-old female in no acute distress at the time of my examination HEENT: Head is atraumatic, normocephalic. Pupils equal, round. Sclera anicteric. Conjunctiva are clear. Mucous membranes of the mouth are moist. Neck is supple. There is no elevated jugular venous pressure. No carotid bruit is heard. HEART EXAMINATION: Heart S1 and S2 irregularly irregular a systolic murmur is heard CHEST EXAMINATION: His reveal diminished air entry to bilateral bases. ABDOMEN: Soft, obese, nontender. Bowel sounds are heard. No organomegaly noted. EXTREMITIES: 2+ peripheral pulses with 1-2+ evidence of peripheral edema and no calf tenderness noted. NEUROLOGIC patient is awake, alert and oriented 3 . . Results 01/29/19 15:10 01/29/19 15:10 Cardiac Enzymes 01/29/19 01/29/19 Range/Units 15:10 15:10 AST 31 (14-36) U/L Troponin I <0.012 (0.000-0.034) ng/mL Coagulation 01/29/19 01/30/19 Range/Units 15:10 06:57 PT 57.1 H 42.9 H (9.0-12.0) sec APTT 41.7 H (22.0-30.0) sec CBC 01/29/19 Range/Units 15:10 WBC 11.2 H (3.8-10.6) k/uL RBC 4.02 (3.80-5.40) m/uL Hgb 10.7 L (11.4-16.0) gm/dL Hct 34.2 (34.0-46.0) % Plt Count 335 (150-450) k/uL Comprehensive Metabolic Panel 01/29/19 Range/Units 15:10 Sodium 140 (137-145) mmol/L Potassium 4.8 (3.5-5.1) mmol/L Chloride 105 (98-107) mmol/L Carbon Dioxide 22 (22-30) mmol/L BUN 25 H (7-17) mg/dL Creatinine 0.97 (0.52-1.04) mg/dL Glucose 200 H (74-99) mg/dL Calcium 9.6 (8.4-10.2) mg/dL AST 31 (14-36) U/L ALT 18 (9-52) U/L Alkaline Phosphatase 79 (38-126) U/L Total Protein 7.4 (6.3-8.2) g/dL Albumin 4.0 (3.5-5.0) g/dL Current Medications Generic Name Dose Route Start Last Admin Trade Name Freq PRN Reason Stop Dose Admin Acetaminophen 650 mg 01/30/19 04:59 01/30/19 05:06 Tylenol Tab PO 650 mg Q6HR PRN Administration Fever and/ or Pain Albuterol/Ipratropium 3 ml 01/30/19 12:00 Duoneb 0.5 Mg-3 Mg/3 Ml Soln INHALATION RT-QID JANEEN Albuterol/Ipratropium 3 ml 01/30/19 09:15 Duoneb 0.5 Mg-3 Mg/3 Ml Soln INHALATION RT-Q2H PRN Shortness Of Breath Or Wheezing Ascorbic Acid 500 mg 01/30/19 09:00 01/30/19 08:44 Vitamin C PO 500 mg DAILY JANEEN Administration Atorvastatin Calcium 10 mg 01/29/19 21:00 01/29/19 20:22 Lipitor PO 10 mg HS [facility] Administration Budesonide/Formoterol Fumarate 2 puff 01/30/19 20:00 Symbicort 80-4.5 Mcg Inhaler INHALATION RT-BID [facility] Calcium Carbonate/Glycine 500 mg 01/30/19 09:00 01/30/19 08:44 Tums PO 500 mg DAILY [facility] Administration Carvedilol 25 mg 01/29/19 17:30 01/30/19 06:26 Coreg PO 25 mg BID-W/MEALS [facility] Administration Cyanocobalamin 500 mcg 01/30/19 09:00 01/30/19 08:44 Vitamin B-12 PO 500 mcg DAILY [facility] Administration Diltiazem HCl 240 mg 01/30/19 09:00 01/30/19 08:44 Cardizem Cd PO 240 mg DAILY JANEEN Administration Ferrous Sulfate 325 mg 01/30/19 09:00 01/30/19 08:44 Feosol PO 325 mg DAILY [facility] Administration Furosemide 40 mg 01/29/19 17:00 01/30/19 06:00 Lasix IV 40 mg Q12H JANEEN Administration Glipizide 10 mg 01/30/19 17:30 Glucotrol PO AC-BID [facility] Insulin Aspart 0 unit 01/29/19 17:30 01/30/19 06:39 Novolog SQ 2 unit ACHS JANEEN Administration Protocol Insulin Detemir 25 unit 01/30/19 21:00 Levemir SQ HS [facility] Magnesium Oxide 400 mg 01/29/19 21:00 01/29/19 20:22 Mag-Ox PO 400 mg HS JANEEN Administration Nitroglycerin 0.5 inch 01/29/19 18:00 01/30/19 08:44 Nitro-Bid Oint TOPICAL 0.5 inch QID JANEEN Administration Vitamin E 400 unit 01/31/19 09:00 Vitamin E PO DAILY JANEEN Intake and Output 01/29/19 01/30/19 01/30/19 22:59 06:59 14:59 Intake Total 10 240 Output Total 200 450 401 Balance -190 -450 -161 Intake: IV 10 Invasive Line 1 10 Oral 240 Output: Urine 200 450 400 Stool 1 Other: Voiding Method Toilet Toilet Bedside Commode Bedside Commode # Voids 2 1 1 Weight 93.1 kg 01/29/19 15:10 01/29/19 15:10 EKG Interpretations (text) EKG shows atrial fibrillation with moderately rapid ventricular response Assessment and Plan Plan: Assessment and plan #1 systolic congestive heart failure acute on chronic #2 atrial fibrillation with rapid ventricular response on Coumadin for anticoagulation, chronic persistent, INR on admission 5.4, 4.5 this morning. #2 positive UTI with sepsis, antibiotics initiated #4 history of CVA #5 hypertension #6 hyperlipidemia #7 diabetes, blood sugar 298 on admission. Plan Patient had just recently been put on an antibiotic which may account for the rise in INR. We will hold the Coumadin, maintain an INR in the range of 2-2.5. I have had a discussion with the patient regarding one of the newer anticoagulants, she does not want to be put on one of those. We will continue to diurese the patient. We will discontinue the Cardizem as the patient's LV function is poor, we'll start the patient on Entresto as well as Aldactone. Fu rther recommendations to follow. DNP note has been reviewed, I agree with a documented findings and plan of care. Patient was seen and examined.
[2019-01-30 11:08] LABS: Anisocytosis Slight; Basophils # (A) 0.1 k/uL (0-0.2); Basophils % (A) 1 %; Eosinophils # (A) 0.3 k/uL (0-0.7); Eosinophils % (A) 3 %; HCT 31.7 % (34.0-46.0); HGB 10.3 gm/dL (11.4-16.0); Hypochromasia Slight; Lymphocytes % (A) 9 %; MCH 27.5 pg (25.0-35.0); MCHC 32.6 g/dL (31.0-37.0); MCV 84.5 fL (80.0-100.0); Mean Platelet Volume 9.7; Monocytes # (A) 0.5 k/uL (0-1.0); Monocytes % (A) 4 %; Neutrophils # (A) 9.2 k/uL (1.3-7.7); Neutrophils % (A) 82 %; Platelet Count 305 k/uL (150-450); RBC 3.75 m/uL (3.80-5.40); RDW 17.5 % (11.5-15.5); WBC 11.1 k/uL (3.8-10.6)
[2019-01-30] MEDS: IPRATROPIUM-ALBUTEROL 3 ML NEB INHALATION SCH ×3 (11:27→19:59)
[2019-01-30 11:57] LABS: Glucose,Whole Blood 195 mg/dL (75-99)
[2019-01-30] MEDS: MAGNESIUM SULFATE-D5W PMX 1 GM in DEXTROSE/WATER 1 100ML.BAG IVPB SCH ×2 (12:15→14:36)
[2019-01-30 12:55] LABS: Hemoglobin A1C 8.8 % (4.0-6.0)
[2019-01-30 14:06] VITALS: BMI 34.1
[2019-01-30 16:42] LABS: Glucose,Whole Blood 202 mg/dL (75-99)
[2019-01-30] MEDS: glipiZIDE 10 MG TAB PO SCH (17:27)
[2019-01-30] MEDS ORDERED: SYMBICORT 80-4.5 MCG INHALER INHALATION SCH (20:00)
[2019-01-30] MEDS: FAMOTIDINE 20 MG TAB PO SCH (20:45)
[2019-01-30] MEDS: ATORVASTATIN 10 MG TAB PO SCH (20:54)
[2019-01-30] MEDS: MONTELUKAST 10 MG TAB PO SCH (20:54)
[2019-01-30] MEDS: MAGNESIUM OXIDE 400 MG TAB PO SCH (20:54)
[2019-01-30] MEDS: INSULIN DETEMIR (LEVEMIR) 100 UNIT/ML SYR SQ SCH (20:54)
[2019-01-30] MEDS: SACUBITRIL/VALSARTAN 24 MG-26 MG TABLET PO SCH (20:54)
[2019-01-30 20:57] LABS: Glucose,Whole Blood 193 mg/dL (75-99)
--- NOTE | 2019-01-31 00:05 | CONS ---
CONSULTATION Moriah Tong is a 78-year-old female who presented to the ER with increasing shortness of breath for about 1 week duration. She had also been gaining weight and having swelling of her lower extremities. She had been seen by her primary care physician and had some adjustments in her medications done recently. She was due to see me tomorrow in the office. She denied any fever, chills, and has had some cough with wheeze. She was recently started on Singulair. Her cough is slightly better, but she continues to have shortness of breath. PAST MEDICAL HISTORY: Positive for atrial fibrillation. Previous CVA, hypertension, appendectomy, cholecystectomy, congestive heart failure, depression. FAMILY HISTORY: Positive for myocardial infarction in her son. SOCIAL HISTORY: Patient is a never smoker. Does not drink alcohol excessively. MEDICATIONS PRIOR TO ADMISSION: Warfarin, vitamin E, magnesium oxide, ferrous sulfate, cranberry fruit extract, cholecalciferol, calcium carbonate, cyanocobalamin, ascorbic acid, albuterol nebulizer, albuterol inhaler, Advair Diskus, metformin, Coumadin, Levemir, insulin, Lipitor, Glucotrol, Cardizem CD, and Coreg. REVIEW OF SYSTEMS: Positive for obesity. PHYSICAL EXAMINATION: Respiratory rate is 20, pulse rate 91, temperature 97.7, blood pressure 150/73, O2 saturation on room air is 91%. HEENT reveals pupils are equal, redundant tissue in the posterior pharynx. Chest with decreased breath sounds at the bases with dullness to percussion. Scattered basal crackles. Cardiovascular system with an S1, S2. Abdomen is soft. There is 1+ to 2+ pedal edema. White count is 11.1, hemoglobin of 10.3, PT/INR of 4.5, magnesium 1.3, hemoglobin A1C of 8.8. Chest x-ray shows prominent basilar opacities. Small bilateral pleural effusions and central vascular congestion. IMPRESSION: At this time: 1. Congestive heart failure with acute exacerbation. 2. Asthma is likely. 3. Possible obstructive sleep apnea. 4. Obesity. 5. Diabetes mellitus. At this point in time: Would keep the patient on inhaled steroids, bronchodilators, aerosolized steroids. Hold off on IV steroids at this time as her main reason for shortness of breath at this point seems to be acute congestive heart failure. I did educate her regarding congestive heart failure and the need to check daily weights and seek medical attention for increase in weight as that may reflect worsening fluid status. Would follow her effusions clinically and radiographically and keep her in negative fluid balance. No plan for thoracentesis at this time. I would like to thank you for allowing me to participate in her care. We will follow her closely during the hospital stay. AGGIE / HELENA: [phone] /
[2019-01-31 06:17] LABS: Anisocytosis Slight; Basophils % (A) 0 %; Eosinophils # (A) 0.2 k/uL (0-0.7); Eosinophils % (A) 2 %; HCT 32.9 % (34.0-46.0); HGB 10.3 gm/dL (11.4-16.0); Hypochromasia Moderate; Lymphocytes # (A) 1.2 k/uL (1.0-4.8); Lymphocytes % (A) 13 %; MCH 26.7 pg (25.0-35.0); MCHC 31.2 g/dL (31.0-37.0); MCV 85.6 fL (80.0-100.0); Mean Platelet Volume 7.9; Monocytes # (A) 0.5 k/uL (0-1.0); Monocytes % (A) 6 %; Neutrophils # (A) 7.3 k/uL (1.3-7.7); Neutrophils % (A) 78 %; Platelet Count 294 k/uL (150-450); RBC 3.85 m/uL (3.80-5.40); RDW 16.9 % (11.5-15.5); WBC 9.4 k/uL (3.8-10.6)
[2019-01-31 06:24] LABS: INR 3.1 (<1.2); Prothrombin Time 29.8 sec (9.0-12.0)
[2019-01-31] MEDS: FUROSEMIDE 10 MG/ML 4 ML VIAL IV SCH ×2 (06:25→17:09)
[2019-01-31] MEDS: CARVEDILOL 12.5 MG TAB PO SCH ×2 (06:25→17:09)
[2019-01-31] MEDS: glipiZIDE 10 MG TAB PO SCH ×2 (06:25→17:09)
[2019-01-31 06:35] LABS: Albumin 3.7 g/dL (3.5-5.0); Calcium 9.6 mg/dL (8.4-10.2); Magnesium 1.6 mg/dL (1.6-2.3); Potassium 3.8 mmol/L (3.5-5.1); Total Bilirubin 1.5 mg/dL (0.2-1.3); Total Protein 6.9 g/dL (6.3-8.2)
[2019-01-31] MEDS: INSULIN ASPART (NovoLOG) 100 UNIT/ML VIAL SQ SCH ×4 (06:38→20:43)
[2019-01-31 06:39] LABS: Glucose,Whole Blood 86 mg/dL (75-99)
[2019-01-31] MEDS: BUDESONIDE 0.5 MG/2 ML NEBU INHALATION SCH ×2 (08:25→20:18)
[2019-01-31] MEDS: IPRATROPIUM-ALBUTEROL 3 ML NEB INHALATION SCH ×4 (08:25→20:18)
[2019-01-31] MEDS: CALCIUM CARBONATE 500 MG CHEWABLE PO SCH (10:01)
[2019-01-31] MEDS: FAMOTIDINE 20 MG TAB PO SCH (10:01)
[2019-01-31] MEDS: ASCORBIC ACID 500 MG TAB PO SCH (10:01)
[2019-01-31] MEDS: CYANOCOBALAMIN 500 MCG TAB PO SCH (10:01)
[2019-01-31] MEDS: FERROUS SULFATE 325 MG TAB PO SCH (10:02)
[2019-01-31] MEDS: SACUBITRIL/VALSARTAN 24 MG-26 MG TABLET PO SCH ×2 (10:02→19:47)
[2019-01-31] MEDS: SPIRONOLACTONE 25 MG TAB PO SCH (10:02)
[2019-01-31] MEDS: NITROGLYCERIN OINT 1 INCH/GM PACKET TOPICAL SCH ×4 (10:03→20:27)
[2019-01-31] MEDS: VITAMIN E (DL,TOCOPHERYL ACET) 400 UNIT CAP PO SCH (10:03)
--- NOTE | 2019-01-31 10:03 | P.PN ---
Subjective Progress Note Date: 01/31/19 This is a 78-year-old female, a patient of Dr. Thompson. She has a known past medical history of atrial fibrillation, hypertension, CVA, asthma, diabetes mellitus and hyperlipidemia. Patient reports increase in shortness of breath yesterday. She is having difficulty completing her usual activities. She has swelling in the lower extremities but does report that this is chronic. She had been on Lasix a while ago and reports that her doctor took her off of it. Patient is also noted some weight gain over the last few days. She presents to the ER with shortness of breath chest x-ray showing small bilateral pleural effusions mild vascular venous congestion and cardiomegaly. BNP elevated at 7430. Patient is being treated for CHF exacerbation and started on IV Lasix in the ER. Patient has noted improvement in her shortness of breath since being started on the Lasix. She denies any chest pain, cough, fever, chills, sweats. Denies any nausea or vomiting, bowel movement changes or urinary symptoms. Cardiology is on consult. Echo from 01/22/2019 is worse than echo in July. It shows an EF of 20-25% left Atrium severely dilated. Moderate to severe mitral regurgitation, moderate tricuspid regurgitation and moderate pulmonary regurgitation. She also noted to be wheezy yesterday. And had been taking her nebulizer treatments. Her equal employment opportunity officer is Dr. HEIDY Levi. Patient uses a walker to help her ambulate. Her son lives with her. 01/31/19 patient's shortness of breath is showing improvement. She's sitting in bedside chair. Weight his decreased from 93.1 kg to 92.3 kg. Patient seen by cardiology and pulmonary service. The cardiology has discontinue the Cardizem and place her on an Trostel and Aldactone for her systolic CHF exacerbation. Patient denies any chest pain or cough. Denies any nausea or vomiting. Reports regular bowel movements. Denies any difficulty urinating. Denies any burning with urination. Patient has not had a recent urinary tract infection. Objective - Vital Signs Vital signs: Vital Signs Temp 98.2 F 01/31/19 08:19 Pulse 72 01/31/19 08:43 Resp 15 01/31/19 08:19 BP 114/75 01/31/19 08:19 Pulse Ox 94 L 01/31/19 08:19 Intake & Output 01/30/19 01/31/19 01/31/19 18:59 06:59 18:59 Intake Total 762 240 Output Total 1001 1253 Balance -239 -1253 240 Weight 93.1 kg 92.3 kg Intake: Intake, IV Titration 300 Amount Magnesium Sulfate-D5w Pmx 300 1 gm In Dextrose/Water 1 100ml.bag @ 100 mls/hr IVPB Q1H [facility] Rx#: [id number] Oral 462 240 Output: Urine 1000 1250 Stool 1 3 Other: Voiding Method Toilet Bedside Commode # Voids 1 2 1 - Exam Head normocephalic Neck supple Lungs improvement in air movement. No wheezing Heart regular rate and rhythm S1-S2, no rub or gallop Abdomen is soft nontender nondistended positive bowel sounds no hepatosplenomegaly Extremities edema bilateral lower extremities Neuro alert and orientated to 3 - Labs CBC & Chem 7: 01/31/19 05:55 01/31/19 05:55 Labs: Abnormal Lab Results - Last 24 Hours (Table) 01/30/19 01/30/19 01/30/19 Range/Units 06:57 09:13 11:54 WBC 11.1 H (3.8-10.6) k/uL RBC 3.75 L (3.80-5.40) m/uL Hgb 10.3 L (11.4-16.0) gm/dL Hct 31.7 L (34.0-46.0) % RDW 17.5 H (11.5-15.5) % Neutrophils # 9.2 H (1.3-7.7) k/uL PT (9.0-12.0) sec INR (<1.2) BUN (7-17) mg/dL POC Glucose (mg/dL) 195 H (75-99) mg/dL Hemoglobin A1c 8.8 H (4.0-6.0) % Total Bilirubin (0.2-1.3) mg/dL 01/30/19 01/30/19 01/31/19 Range/Units 16:40 20:55 05:55 WBC (3.8-10.6) k/uL RBC (3.80-5.40) m/uL Hgb 10.3 L (11.4-16.0) gm/dL Hct 32.9 L (34.0-46.0) % RDW 16.9 H (11.5-15.5) % Neutrophils # (1.3-7.7) k/uL PT (9.0-12.0) sec INR (<1.2) BUN (7-17) mg/dL POC Glucose (mg/dL) 202 H 193 H (75-99) mg/dL Hemoglobin A1c (4.0-6.0) % Total Bilirubin (0.2-1.3) mg/dL 01/31/19 01/31/19 Range/Units 05:55 05:55 WBC (3.8-10.6) k/uL RBC (3.80-5.40) m/uL Hgb (11.4-16.0) gm/dL Hct (34.0-46.0) % RDW (11.5-15.5) % Neutrophils # (1.3-7.7) k/uL PT 29.8 H (9.0-12.0) sec INR 3.1 H (<1.2) BUN 20 H (7-17) mg/dL POC Glucose (mg/dL) (75-99) mg/dL Hemoglobin A1c (4.0-6.0) % Total Bilirubin 1.5 H (0.2-1.3) mg/dL Assessment and Plan Assessment: 1. Acute on chronic systolic CHF exacerbation: Continue IV Lasix 40 mg every 12 hours. Cardiology has added Entresto and Aldactone. They discontinued the Cardizem Elevated BNP 7430. Chest x-ray showing evidence of small bilateral pleural effusions and mild vascular venous congestion. Echo shows an EF of 20- 25% left Atrium severely dilated, moderate to severe mitral regurgitation, moderate tricuspid regurgitation and moderate pulmonary regurgitation 2. Hypomagnesemia : Magnesium 1.6. We'll give another gram of magnesium sulfate. Repeat magnesium level in a.m. 3. Coagulopathy: Patient is on Coumadin for atrial fibrillation. INR supratherapeutic 5.9 on admission. INR today is 3.1 Coumadin remains on hold. Continue to monitor PT/INRs. Hold Coumadin for now. No signs of bleeding 4. Leukocytosis likely reactive. White count normalized 5. Known history of chronic persistent atrial fibrillation: Anticoagulated with Coumadin. Continue Coreg. Coumadin on hold until INR becomes therapeutic 6. Essential hypertension: Blood pressures are stable 7. Diabetes mellitus type 2: Resume patient's Levemir and glipizide. Hold metformin for now during hospitalization. A1c 8.8. Continue Accu-Cheks every before meals and at bedtime with sliding scale coverage 8. History of mild intermittent asthma: Resume patient's inhalers. We'll merritt e DuoNeb updrafts to 4 times a day and as needed. Patient seen by pulmonary felt that her shortness of breath was more related to CHF. They did add Pulmicort. 9. History of CVAs 10. Essential hypertension: Blood pressures are stable. Continue current medications. GI prophylaxis Pepcid and DVT prophylaxis, Coumadin currently on hold due to elevated INR I performed an examination of the patient and discussed their management with the physician [employer] Teacher. I have reviewed the Physician [employer] Teacher's notes and agree with the documented findings and plan of care
[2019-01-31] MEDS ORDERED: MAGNESIUM SULFATE-D5W PMX 1 GM in DEXTROSE/WATER 1 100ML.BAG IVPB ONE (10:30)
[2019-01-31 11:42] LABS: Glucose,Whole Blood 107 mg/dL (75-99)
--- NOTE | 2019-01-31 12:50 | P.PN ---
Subjective Progress Note Date: 01/31/19 This is a pleasant 78-year-old female who follows with a matrix worker out of town, she has a known history of persistent atrial fibrillation on Coumadin for anticoagulation, prior CVA, hypertension, diabetes, hyperlipidemia, nonsmoker, who presents to the hospital with symptoms of progressively worsening shortness of breath as well as increase in peripheral edema. Chest x-ray on presentation here showed CHF exacerbation on background of chronic parenchymal changes, cardiomegaly, new small bilateral pleural effusions. EKG showed atrial fibrillation with moderately rapid ventricular response. Blood pressure 120/70 with a heart rate in the 70s, 95% on room air. White blood cell count 11.2, hemoglobin 10.7, platelet count 335. INR on admission 5.9, 4.5 this morning. Sodium 140, potassium 4.8, BUN 25 and creatinine 0.9. Magnesium level on admission 1.4, 1.3 this morning. Troponin 0.012, BNP level 7430. Patient was initiated on IV Lasix in the emergency room, she states that she has been putting out a significant amount of urine since that was initiated, overall she does state that her breathing is improving, she is still however short of breath and continues to have some bilateral peripheral edema. Patient had an echocardiogram with Doppler study performed this month which revealed an ejection fraction of 20-25%, moderate to severe mitral regurgitation, moderate tricuspid regurg and severe pulmonary hypertension. 01/31/2019 Patient was seen and examined this morning, she continues to put out adequate amounts of urine in her weight today is down 1 kg. Blood pressure 120/60 with a heart rate in the 80s, 96% on room air. White blood cell count 9.4, hemoglobin 10.3, platelet count 294. INR 3.1, sodium 139, potassium 3.8, BUN 20 and creatinine 0.8. Objective - Vital Signs Vital signs: Vital Signs Temp 98.0 F 01/31/19 11:49 Pulse 80 01/31/19 11:49 Resp 16 01/31/19 11:49 BP 120/62 01/31/19 11:49 Pulse Ox 96 01/31/19 11:49 Intake & Output 01/30/19 01/31/19 01/31/19 18:59 06:59 18:59 Intake Total 762 1020 Output Total 1001 1253 500 Balance -239 -1253 520 Weight 93.1 kg 92.3 kg Intake: Intake, IV Titration 300 Amount Magnesium Sulfate-D5w Pmx 300 1 gm In Dextrose/Water 1 100ml.bag @ 100 mls/hr IVPB Q1H [facility] Rx#: [id number] Oral 462 1020 Output: Urine 1000 1250 500 Stool 1 3 Other: Voiding Method Toilet Bedside Commode Bedside Commode # Voids 1 2 1 - Exam PHYSICAL EXAMINATION: GENERAL: 78-year-old female in no acute distress at the time of my examination HEENT: Head is atraumatic, normocephalic. Pupils equal, round. Sclera anicteric. Conjunctiva are clear. Mucous membranes of the mouth are moist. Neck is supple. There is no elevated jugular venous pressure. No carotid bruit is heard. HEART EXAMINATION: Heart S1 and S2 irregularly irregular a systolic murmur is heard CHEST EXAMINATION: His reveal diminished air entry to bilateral bases. ABDOMEN: Soft, obese, nontender. Bowel sounds are heard. No organomegaly noted. EXTREMITIES: 2+ peripheral pulses with 1-2+ evidence of peripheral edema and no calf tenderness noted. NEUROLOGIC patient is awake, alert and oriented 3 . . - Labs CBC & Chem 7: 01/31/19 05:55 01/31/19 05:55 Labs: Abnormal Lab Results - Last 24 Hours (Table) 01/30/19 01/30/19 01/30/19 Range/Units 06:57 16:40 20:55 Hgb (11.4-16.0) gm/dL Hct (34.0-46.0) % RDW (11.5-15.5) % PT (9.0-12.0) sec INR (<1.2) BUN (7-17) mg/dL POC Glucose (mg/dL) 202 H 193 H (75-99) mg/dL Hemoglobin A1c 8.8 H (4.0-6.0) % Total Bilirubin (0.2-1.3) mg/dL 01/31/19 01/31/19 01/31/19 Range/Units 05:55 05:55 05:55 Hgb 10.3 L (11.4-16.0) gm/dL Hct 32.9 L (34.0-46.0) % RDW 16.9 H (11.5-15.5) % PT 29.8 H (9.0-12.0) sec INR 3.1 H (<1.2) BUN 20 H (7-17) mg/dL POC Glucose (mg/dL) (75-99) mg/dL Hemoglobin A1c (4.0-6.0) % Total Bilirubin 1.5 H (0.2-1.3) mg/dL 01/31/19 Range/Units 11:39 Hgb (11.4-16.0) gm/dL Hct (34.0-46.0) % RDW (11.5-15.5) % PT (9.0-12.0) sec INR (<1.2) BUN (7-17) mg/dL POC Glucose (mg/dL) 107 H (75-99) mg/dL Hemoglobin A1c (4.0-6.0) % Total Bilirubin (0.2-1.3) mg/dL Assessment and Plan Plan: Assessment and plan #1 systolic congestive heart failure acute on chronic #2 atrial fibrillation with rapid ventricular response on Coumadin for anticoagulation, chronic persistent, INR on admission 5.4, 4.5 this morning. #2 positive UTI with sepsis, antibiotics initiated #4 history of CVA #5 hypertension #6 hyperlipidemia #7 diabetes, blood sugar 298 on admission. Plan From cardiology's perspective, we'll recommend to continue the patient on her current medications continue to monitor intake and output along with daily weights and daily lytes BUN and creatinine. DNP note has been reviewed, I agree with a documented findings and plan of care. Patient was seen and examined.
--- NOTE | 2019-01-31 13:54 | PN ---
PROGRESS NOTE DATE OF SERVICE: 01/31/2019 Patient is a 78-year-old female who is seen sitting up in a chair, just getting ready to eat lunch. The patient does feel like her breathing is better today and states that she never did have a cough. Patient is hemodynamically stable, afebrile, in no acute distress. ON PHYSICAL EXAM: VITAL SIGNS: Temp 98.0, heart rate is 80, respiratory rate is 16, blood pressure is 120/62, O2 sats 96% on room air. HEENT. Head is normocephalic, atraumatic. Neck is supple. Trachea is midline. LUNGS: Are diminished, more so on the right than the left with scattered wheeze. HEART: S1, S2 heard. Not tachycardic. ABDOMEN: Soft. Bowel sounds are positive. EXTREMITIES: With 2+ edema, which is improved per the patient. NEUROLOGIC: Patient is awake and alert. LABS: White count is 9.4, hemoglobin is 10.3, hematocrit 32.9 with 294,000 platelets. PT is 29.8. INR is 3.1. Sodium is 139, potassium is 3.8, chloride is 101, CO2 is 26. Anion gap is 12. BUN is 20, creatinine 0.88. Glucose is 79. Calcium is 9.6. Magnesium is 1.6. Total bilirubin is 1.5. AST is 15. ALT is 22. Alkaline phosphatase is 74. Total protein is 6.9. Albumin is 3.7. No new imaging to review. IMPRESSION: 1. Congestive heart failure with acute exacerbation. 2. Asthma is likely. 3. Possible obstructive sleep apnea. 4. Obesity. 5. Diabetes mellitus. PLAN: Continue current medications, which have been reviewed. Continue bronchodilators and aerosol steroids. Continue to maintain a negative fluid balance. We will follow patient closely with you making further changes as necessary. MMODL / IJN: [id number] /
[2019-01-31 16:43] LABS: Glucose,Whole Blood 210 mg/dL (75-99)
[2019-01-31 18:43] LABS: Iron Saturation 10.53 (12.00-45.00)
[2019-01-31 18:51] LABS: Ferritin 121.5 ng/mL (10.0-291.0)
[2019-01-31] MEDS: ATORVASTATIN 10 MG TAB PO SCH (19:47)
[2019-01-31] MEDS: MAGNESIUM OXIDE 400 MG TAB PO SCH (19:47)
[2019-01-31] MEDS: MONTELUKAST 10 MG TAB PO SCH (19:47)
[2019-01-31 20:37] LABS: Glucose,Whole Blood 161 mg/dL (75-99)
[2019-01-31] MEDS: INSULIN DETEMIR (LEVEMIR) 100 UNIT/ML SYR SQ SCH (20:42)
[2019-02-01 06:13] LABS: Glucose,Whole Blood 101 mg/dL (75-99)
[2019-02-01] MEDS: INSULIN ASPART (NovoLOG) 100 UNIT/ML VIAL SQ SCH ×4 (06:21→20:44)
[2019-02-01] MEDS: glipiZIDE 10 MG TAB PO SCH ×2 (06:30→17:10)
[2019-02-01] MEDS: FUROSEMIDE 10 MG/ML 4 ML VIAL IV SCH ×2 (06:30→17:10)
[2019-02-01] MEDS: CARVEDILOL 12.5 MG TAB PO SCH ×2 (06:30→17:10)
[2019-02-01 07:03] LABS: Anisocytosis Slight; Basophils # (A) 0.1 k/uL (0-0.2); Basophils % (A) 1 %; Eosinophils # (A) 0.2 k/uL (0-0.7); Eosinophils % (A) 2 %; HCT 33.6 % (34.0-46.0); HGB 10.4 gm/dL (11.4-16.0); Hypochromasia Slight; Lymphocytes % (A) 12 %; MCH 26.1 pg (25.0-35.0); MCHC 30.8 g/dL (31.0-37.0); MCV 84.8 fL (80.0-100.0); Mean Platelet Volume 7.8; Monocytes # (A) 0.6 k/uL (0-1.0); Monocytes % (A) 7 %; Neutrophils # (A) 6.6 k/uL (1.3-7.7); Neutrophils % (A) 77 %; Platelet Count 297 k/uL (150-450); RBC 3.96 m/uL (3.80-5.40); RDW 16.7 % (11.5-15.5); WBC 8.6 k/uL (3.8-10.6)
[2019-02-01 07:19] LABS: INR 1.9 (<1.2); Prothrombin Time 18.8 sec (9.0-12.0)
[2019-02-01 07:30] LABS: Albumin 3.6 g/dL (3.5-5.0); Calcium 9.3 mg/dL (8.4-10.2); Magnesium 1.5 mg/dL (1.6-2.3); Potassium 3.6 mmol/L (3.5-5.1); Total Bilirubin 1.5 mg/dL (0.2-1.3); Total Protein 6.7 g/dL (6.3-8.2)
[2019-02-01] MEDS: BUDESONIDE 0.5 MG/2 ML NEBU INHALATION SCH ×2 (09:11→19:55)
[2019-02-01] MEDS: IPRATROPIUM-ALBUTEROL 3 ML NEB INHALATION SCH ×4 (09:11→19:55)
[2019-02-01] MEDS: CALCIUM CARBONATE 500 MG CHEWABLE PO SCH (09:20)
[2019-02-01] MEDS: CYANOCOBALAMIN 500 MCG TAB PO SCH (09:20)
[2019-02-01] MEDS: FERROUS SULFATE 325 MG TAB PO SCH (09:20)
[2019-02-01] MEDS: ASCORBIC ACID 500 MG TAB PO SCH (09:20)
[2019-02-01] MEDS: SPIRONOLACTONE 25 MG TAB PO SCH (09:21)
[2019-02-01] MEDS: FAMOTIDINE 20 MG TAB PO SCH (09:21)
[2019-02-01] MEDS: SACUBITRIL/VALSARTAN 24 MG-26 MG TABLET PO SCH ×2 (09:21→20:44)
[2019-02-01] MEDS: VITAMIN E (DL,TOCOPHERYL ACET) 400 UNIT CAP PO SCH (09:21)
[2019-02-01] MEDS: NITROGLYCERIN OINT 1 INCH/GM PACKET TOPICAL SCH ×5 (09:21→20:47)
[2019-02-01 11:57] LABS: Glucose,Whole Blood 194 mg/dL (75-99)
--- NOTE | 2019-02-01 12:16 | P.PN ---
Subjective Progress Note Date: 02/01/19 This is a pleasant 78-year-old female who follows with a nonprofit director out of town, she has a known history of persistent atrial fibrillation on Coumadin for anticoagulation, prior CVA, hypertension, diabetes, hyperlipidemia, nonsmoker, who presents to the hospital with symptoms of progressively worsening shortness of breath as well as increase in peripheral edema. Chest x-ray on presentation here showed CHF exacerbation on background of chronic parenchymal changes, cardiomegaly, new small bilateral pleural effusions. EKG showed atrial fibrillation with moderately rapid ventricular response. Blood pressure 120/70 with a heart rate in the 70s, 95% on room air. White blood cell count 11.2, hemoglobin 10.7, platelet count 335. INR on admission 5.9, 4.5 this morning. Sodium 140, potassium 4.8, BUN 25 and creatinine 0.9. Magnesium level on admission 1.4, 1.3 this morning. Troponin 0.012, BNP level 7430. Patient was initiated on IV Lasix in the emergency room, she states that she has been putting out a significant amount of urine since that was initiated, overall she does state that her breathing is improving, she is still however short of breath and continues to have some bilateral peripheral edema. Patient had an echocardiogram with Doppler study performed this month which revealed an ejection fraction of 20-25%, moderate to severe mitral regurgitation, moderate tricuspid regurg and severe pulmonary hypertension. 01/31/2019 Patient was seen and examined this morning, she continues to put out adequate amounts of urine in her weight today is down 1 kg. Blood pressure 120/60 with a heart rate in the 80s, 96% on room air. White blood cell count 9.4, hemoglobin 10.3, platelet count 294. INR 3.1, sodium 139, potassium 3.8, BUN 20 and creatinine 0.8. 02/01: Patient is found sitting up and recliner and appears to be comfortable. She states her breathing is better and improving gradually each day. She denies any cough. weight is down an additional kilogram from yesterday.INR 1.9, BUN 20 creatinine 0.94, potassium 3.6.hemoglobin 10.4 Physical exam: Gen: This is a 78-year-old female. She is sitting in recliner appears to be comfortable and in no acute distress. No respiratory distress noted. Afebrile, heart rate 88, blood pressure 133/50, pulse ox 97% on room air HEENT: Head is atraumatic, normocephalic. Pupils equal, round. Sclerae is ani cteric. NECK: Supple. No JVD. No lymphadenopathy. No thyromegaly. LUNGS: diminished breath sounds to the bilateral bases. No wheezes or rhonchi. No intercostal retractions. HEART: irregularly irregular rate and rhythm. systolic murmur. ABDOMEN: Soft. Bowel sounds are present. No masses. No tenderness. EXTREMITIES: 1+ pedal edema. No calf tenderness. Dorsalis pedis palpable bilaterally. NEUROLOGICAL: Patient is awake, alert and oriented x3. Cranial nerves 2 through 12 are grossly intact. Assessment: Acute on chronic systolic heart failure Chronic persistent atrial fibrillation presenting with RVR Possible UTI and sepsis History of CVA Hypertension Hyperlipidemia Diabetes Plan: Continue Lasix 40 mg IV twice daily Continue to monitor daily weights and I&O, electrolytes and BUN/creatinine Continue Coreg 25 mg twice daily, Entresto 2426 milligrams twice daily, spironolactone 25 mg daily Resume Coumadin at 6 mg daily and monitor INR daily Further recommendations to follow based upon clinical course. Nurse practitioner note has been reviewed, I agree with the document and find ings and plan of care. Patient has been seen and examined. Objective - Vital Signs Vital signs: Vital Signs Temp 97.7 F 02/01/19 08:00 Pulse 88 02/01/19 09:28 Resp 20 02/01/19 08:00 BP 133/50 02/01/19 08:00 Pulse Ox 97 02/01/19 08:00 Intake & Output 01/31/19 02/01/19 02/01/19 18:59 06:59 18:59 Intake Total 1260 100 Output Total 500 403 Balance 760 -403 100 Weight 91.2 kg Intake: Oral 1260 100 Output: Urine 500 400 Stool 3 Other: Voiding Method Bedside Commode Bedside Commode # Voids 2 1 1 - Labs CBC & Chem 7: 02/01/19 06:22 02/01/19 06:22 Labs: Abnormal Lab Results - Last 24 Hours (Table) 01/31/19 01/31/19 01/31/19 Range/Units 05:55 16:41 20:37 Hgb (11.4-16.0) gm/dL Hct (34.0-46.0) % MCHC (31.0-37.0) g/dL RDW (11.5-15.5) % PT (9.0-12.0) sec INR (<1.2) BUN (7-17) mg/dL POC Glucose (mg/dL) 210 H 161 H (75-99) mg/dL Magnesium (1.6-2.3) mg/dL Iron 32 L (50-170) ug/dL Iron Saturation 10.53 L (12.00-45.00) Total Bilirubin (0.2-1.3) mg/dL 02/01/19 02/01/19 02/01/19 Range/Units 06:11 06:22 06:22 Hgb 10.4 L (11.4-16.0) gm/dL Hct 33.6 L (34.0-46.0) % MCHC 30.8 L (31.0-37.0) g/dL RDW 16.7 H (11.5-15.5) % PT 18.8 H (9.0-12.0) sec INR 1.9 H (<1.2) BUN (7-17) mg/dL POC Glucose (mg/dL) 101 H (75-99) mg/dL Magnesium (1.6-2.3) mg/dL Iron (50-170) ug/dL Iron Saturation (12.00-45.00) Total Bilirubin (0.2-1.3) mg/dL 02/01/19 02/01/19 Range/Units 06:22 11:33 Hgb (11.4-16.0) gm/dL Hct (34.0-46.0) % MCHC (31.0-37.0) g/dL RDW (11.5-15.5) % PT (9.0-12.0) sec INR (<1.2) BUN 20 H (7-17) mg/dL POC Glucose (mg/dL) 194 H (75-99) mg/dL Magnesium 1.5 L (1.6-2.3) mg/dL Iron (50-170) ug/dL Iron Saturation (12.00-45.00) Total Bilirubin 1.5 H (0.2-1.3) mg/dL
--- NOTE | 2019-02-01 12:51 | P.PN ---
Subjective Progress Note Date: 02/01/19 This is a 78-year-old female, a patient of Dr. Thompson. She has a known past medical history of atrial fibrillation, hypertension, CVA, asthma, diabetes mellitus and hyperlipidemia. Patient reports increase in shortness of breath yesterday. She is having difficulty completing her usual activities. She has swelling in the lower extremities but does report that this is chronic. She had been on Lasix a while ago and reports that her doctor took her off of it. Patient is also noted some weight gain over the last few days. She presents to the ER with shortness of breath chest x-ray showing small bilateral pleural effusions mild vascular venous congestion and cardiomegaly. BNP elevated at 7430. Patient is being treated for CHF exacerbation and started on IV Lasix in the ER. Patient has noted improvement in her shortness of breath since being started on the Lasix. She denies any chest pain, cough, fever, chills, sweats. Denies any nausea or vomiting, bowel movement changes or urinary symptoms. Cardiology is on consult. Echo from 01/22/2019 is worse than echo in July. It shows an EF of 20-25% left Atrium severely dilated. Moderate to severe mitral regurgitation, moderate tricuspid regurgitation and moderate pulmonary regurgitation. She also noted to be wheezy yesterday. And had been taking her nebulizer treatments. Her ekg monitor tech is Dr. HEIDY Levi. Patient uses a walker to help her ambulate. Her son lives with her. 01/31/19 patient's shortness of breath is showing improvement. She's sitting in bedside chair. Weight his decreased from 93.1 kg to 92.3 kg. Patient seen by cardiology and pulmonary service. The cardiology has discontinue the Cardizem and place her on an Trostel and Aldactone for her systolic CHF exacerbation. Patient denies any chest pain or cough. Denies any nausea or vomiting. Reports regular bowel movements. Denies any difficulty urinating. Denies any burning with urination. Patient has not had a recent urinary tract infection. On 02/01/2019 patient was seen and examined on the telemetry floor she is alert and oriented 3 in no apparent distress she is still complaining of shortness of breath with activity she is complaining of going to urinate multiple times she is still complaining of lower extremity edema otherwise she denies any complaints there is no fever or chills no headache or dizziness no chest pain no cough no nausea or vomiting no abdominal pain no diarrhea no burning was urination no frequency or urgency and no hematuria Objective - Vital Signs Vital signs: Vital Signs Temp 97.7 F 02/01/19 08:00 Pulse 88 02/01/19 09:28 Resp 20 02/01/19 08:00 BP 133/50 02/01/19 08:00 Pulse Ox 97 02/01/19 08:00 Intake & Output 01/31/19 02/01/19 02/01/19 18:59 06:59 18:59 Intake Total 1260 100 Output Total 500 403 Balance 760 -403 100 Weight 91.2 kg Intake: Oral 1260 100 Output: Urine 500 400 Stool 3 Other: Voiding Method Bedside Commode Bedside Commode # Voids 2 1 1 - Exam In general patient is alert and oriented 3 in no apparent distress HEENT head normocephalic and atraumatic Neck is supple no JVD no goiter no lymphadenopathy Chest exam reveals a few scattered crackles no wheezing Cardiac exam reveals regular heart sounds S1 and S2 no gallops no murmurs Abdomen is soft nontender no organomegaly with normal bowel sounds Extremity exam reveals 2+ edema no cyanosis or clubbing Neurological examination reveals no gross focal deficit - Labs CBC & Chem 7: 02/01/19 06:22 02/01/19 06:22 Labs: Abnormal Lab Results - Last 24 Hours (Table) 01/31/19 01/31/19 01/31/19 Range/Units 05:55 16:41 20:37 Hgb (11.4-16.0) gm/dL Hct (34.0-46.0) % MCHC (31.0-37.0) g/dL RDW (11.5-15.5) % PT (9.0-12.0) sec INR (<1.2) BUN (7-17) mg/dL POC Glucose (mg/dL) 210 H 161 H (75-99) mg/dL Magnesium (1.6-2.3) mg/dL Iron 32 L (50-170) ug/dL Iron Saturation 10.53 L (12.00-45.00) Total Bilirubin (0.2-1.3) mg/dL 02/01/19 02/01/19 02/01/19 Range/Units 06:11 06:22 06:22 Hgb 10.4 L (11.4-16.0) gm/dL Hct 33.6 L (34.0-46.0) % MCHC 30.8 L (31.0-37.0) g/dL RDW 16.7 H (11.5-15.5) % PT 18.8 H (9.0-12.0) sec INR 1.9 H (<1.2) BUN (7-17) mg/dL POC Glucose (mg/dL) 101 H (75-99) mg/dL Magnesium (1.6-2.3) mg/dL Iron (50-170) ug/dL Iron Saturation (12.00-45.00) Total Bilirubin (0.2-1.3) mg/dL 02/01/19 02/01/19 Range/Units 06:22 11:33 Hgb (11.4-16.0) gm/dL Hct (34.0-46.0) % MCHC (31.0-37.0) g/dL RDW (11.5-15.5) % PT (9.0-12.0) sec INR (<1.2) BUN 20 H (7-17) mg/dL POC Glucose (mg/dL) 194 H (75-99) mg/dL Magnesium 1.5 L (1.6-2.3) mg/dL Iron (50-170) ug/dL Iron Saturation (12.00-45.00) Total Bilirubin 1.5 H (0.2-1.3) mg/dL Assessment and Plan Plan: 1. Acute on chronic systolic CHF exacerbation: Continue IV Lasix 40 mg every 12 hours. Cardiology has added Entresto and Aldactone. They discontinued the Cardizem Elevated BNP 7430. Chest x-ray showing evidence of small bilateral pleural effusions and mild vascular venous congestion. Echo shows an EF of 20- 25% left Atrium severely dilated, moderate to severe mitral regurgitation, moderate tricuspid regurgitation and moderate pulmonary regurgitation 2. Hypomagnesemia : Magnesium 1.6. We'll give another gram of magnesium sulfate. Repeat magnesium level in a.m. 3. Coagulopathy: Patient is on Coumadin for atrial fibrillation. INR supratherapeutic 5.9 on admission. INR today is 3.1 Coumadin remains on hold. Continue to monitor PT/INRs. Hold Coumadin for now. No signs of bleeding 4. Leukocytosis likely reactive. White count normalized 5. Known history of chronic persistent atrial fibrillation: Anticoagulated with Coumadin. Continue Coreg. Coumadin on hold until INR becomes therapeutic 6. Essential hypertension: Blood pressures are stable 7. Diabetes mellitus type 2: Resume patient's Levemir and glipizide. Hold metformin for now during hospitalization. A1c 8.8. Continue Accu-Cheks every before meals and at bedtime with sliding scale coverage 8. History of mild intermittent asthma: Resume patient's inhalers. We'll change DuoNeb updrafts to 4 times a day and as needed. Patient seen by pulmonary felt that her shortness of breath was more related to CHF. They did add Pulmicort. 9. History of CVAs 10. Essential hypertension: Blood pressures are stable. Continue current medications. GI prophylaxis Pepcid and DVT prophylaxis, Coumadin currently on hold due to elevated INR
[2019-02-01 16:55] LABS: Glucose,Whole Blood 169 mg/dL (75-99)
--- NOTE | 2019-02-01 17:13 | PN ---
PROGRESS NOTE DATE OF SERVICE: February 01, 2019. She continues to have shortness of breath, but is feeling better overall. She feels quite tired and weak. On physical examination, blood pressure 160/68, respiratory rate 20, pulse rate 95, O2 saturation on room air is 97%. HEENT is unremarkable. Chest reveals coarse breath sounds in the bases. Cardiovascular system reveals an S1, S2. Abdomen is soft. There is 1+ pedal edema. LABORATORY DATA: White count is 8.6, hemoglobin 10.4. PT/INR 1.9. Sodium 140, potassium 3.6, chloride 99, bicarb 29. IMPRESSION: 1. Congestive heart failure. 2. Medical debility. 3. Possible obstructive sleep apnea. 4. Obesity. 5. Asthma with exacerbation. Continue bronchodilators and aerosolized steroids. Keep a negative fluid balance. further evaluate the patient. Depending on how she does, we shall make further changes to her care. MMBLESSINGL / YADIELN: [id number] /
[2019-02-01] MEDS: WARFARIN 3 MG TAB PO SCH (18:19)
[2019-02-01 20:31] LABS: Glucose,Whole Blood 261 mg/dL (75-99)
[2019-02-01] MEDS: MAGNESIUM OXIDE 400 MG TAB PO SCH (20:44)
[2019-02-01] MEDS: MONTELUKAST 10 MG TAB PO SCH (20:44)
[2019-02-01] MEDS: ATORVASTATIN 10 MG TAB PO SCH (20:44)
[2019-02-01] MEDS: INSULIN DETEMIR (LEVEMIR) 100 UNIT/ML SYR SQ SCH (20:45)
[2019-02-02] MEDS: FUROSEMIDE 10 MG/ML 4 ML VIAL IV SCH (05:45)
[2019-02-02] MEDS: CARVEDILOL 12.5 MG TAB PO SCH ×2 (05:45→16:15)
[2019-02-02] MEDS: glipiZIDE 10 MG TAB PO SCH ×2 (05:45→16:15)
[2019-02-02 06:02] LABS: Anisocytosis Slight; Basophils # (A) 0.1 k/uL (0-0.2); Basophils % (A) 1 %; Eosinophils # (A) 0.1 k/uL (0-0.7); Eosinophils % (A) 2 %; HCT 32.9 % (34.0-46.0); HGB 10.4 gm/dL (11.4-16.0); Hypochromasia Moderate; Lymphocytes # (A) 1.1 k/uL (1.0-4.8); Lymphocytes % (A) 14 %; MCH 27.1 pg (25.0-35.0); MCHC 31.5 g/dL (31.0-37.0); MCV 85.9 fL (80.0-100.0); Mean Platelet Volume 7.9; Monocytes # (A) 0.6 k/uL (0-1.0); Monocytes % (A) 8 %; Neutrophils # (A) 6.1 k/uL (1.3-7.7); Neutrophils % (A) 74 %; Platelet Count 258 k/uL (150-450); RBC 3.82 m/uL (3.80-5.40); RDW 16.9 % (11.5-15.5); WBC 8.3 k/uL (3.8-10.6)
[2019-02-02] MEDS: INSULIN ASPART (NovoLOG) 100 UNIT/ML VIAL SQ SCH ×4 (06:07→22:03)
[2019-02-02 06:13] LABS: Glucose,Whole Blood 84 mg/dL (75-99)
[2019-02-02 06:15] LABS: INR 1.7 (<1.2); Prothrombin Time 16.8 sec (9.0-12.0)
[2019-02-02 06:19] LABS: Albumin 3.3 g/dL (3.5-5.0); Calcium 9.1 mg/dL (8.4-10.2); Magnesium 1.5 mg/dL (1.6-2.3); Potassium 3.6 mmol/L (3.5-5.1); Total Protein 6.3 g/dL (6.3-8.2)
[2019-02-02] MEDS ORDERED: Magnesium Replacement Protocol 1 EACH MISC MISCELLANE PRN (08:45)
[2019-02-02] MEDS: IPRATROPIUM-ALBUTEROL 3 ML NEB INHALATION SCH ×4 (09:11→21:15)
[2019-02-02] MEDS: BUDESONIDE 0.5 MG/2 ML NEBU INHALATION SCH ×2 (09:11→21:15)
[2019-02-02] MEDS: VITAMIN E (DL,TOCOPHERYL ACET) 400 UNIT CAP PO SCH (09:45)
[2019-02-02] MEDS: FERROUS SULFATE 325 MG TAB PO SCH (09:45)
[2019-02-02] MEDS: FAMOTIDINE 20 MG TAB PO SCH (09:45)
[2019-02-02] MEDS: CYANOCOBALAMIN 500 MCG TAB PO SCH (09:45)
[2019-02-02] MEDS: MAGNESIUM SULFATE-D5W PMX 1 GM in DEXTROSE/WATER 1 100ML.BAG IVPB SCH ×3 (09:45→12:29)
[2019-02-02] MEDS: SACUBITRIL/VALSARTAN 24 MG-26 MG TABLET PO SCH ×2 (09:45→20:21)
[2019-02-02] MEDS: CALCIUM CARBONATE 500 MG CHEWABLE PO SCH (09:45)
[2019-02-02] MEDS: SPIRONOLACTONE 25 MG TAB PO SCH (09:45)
[2019-02-02] MEDS: ASCORBIC ACID 500 MG TAB PO SCH (09:45)
[2019-02-02] MEDS: NITROGLYCERIN OINT 1 INCH/GM PACKET TOPICAL SCH ×4 (09:46→22:03)
--- NOTE | 2019-02-02 10:03 | P.PN ---
Subjective Progress Note Date: 02/02/19 This is a 78-year-old female, a patient of Dr. Thompson. She has a known past medical history of atrial fibrillation, hypertension, CVA, asthma, diabetes mellitus and hyperlipidemia. Patient reports increase in shortness of breath yesterday. She is having difficulty completing her usual activities. She has swelling in the lower extremities but does report that this is chronic. She had been on Lasix a while ago and reports that her doctor took her off of it. Patient is also noted some weight gain over the last few days. She presents to the ER with shortness of breath chest x-ray showing small bilateral pleural effusions mild vascular venous congestion and cardiomegaly. BNP elevated at 7430. Patient is being treated for CHF exacerbation and started on IV Lasix in the ER. Patient has noted improvement in her shortness of breath since being started on the Lasix. She denies any chest pain, cough, fever, chills, sweats. Denies any nausea or vomiting, bowel movement changes or urinary symptoms. Cardiology is on consult. Echo from 01/22/2019 is worse than echo in July. It shows an EF of 20-25% left Atrium severely dilated. Moderate to severe mitral regurgitation, moderate tricuspid regurgitation and moderate pulmonary regurgitation. She also noted to be wheezy yesterday. And had been taking her nebulizer treatments. Her pharmacy tech is Dr. HEIDY Levi. Patient uses a walker to help her ambulate. Her son lives with her. 01/31/19 patient's shortness of breath is showing improvement. She's sitting in bedside chair. Weight his decreased from 93.1 kg to 92.3 kg. Patient seen by cardiology and pulmonary service. The cardiology has discontinue the Cardizem and place her on an Trostel and Aldactone for her systolic CHF exacerbation. Patient denies any chest pain or cough. Denies any nausea or vomiting. Reports regular bowel movements. Denies any difficulty urinating. Denies any burning with urination. Patient has not had a recent urinary tract infection. On 02/01/2019 patient was seen and examined on the telemetry floor she is alert and oriented 3 in no apparent distress she is still complaining of shortness of breath with activity she is complaining of going to urinate multiple times she is still complaining of lower extremity edema otherwise she denies any complaints there is no fever or chills no headache or dizziness no chest pain no cough no nausea or vomiting no abdominal pain no diarrhea no burning was urination no frequency or urgency and no hematuria On 02/02/2019 patient was seen and examined on the telemetry floor, she is doing better she is reporting less shortness of breath, there is no fever or chills no headache or dizziness no chest pain no cough no nausea or vomiting no abdominal pain no diarrhea no burning with urination no frequency or urgency and no hematuria, she is alert and oriented 3 there is no weakness or numbness in any of her extremities Objective - Vital Signs Vital signs: Vital Signs Temp 97.7 F 02/02/19 04:00 Pulse 96 02/02/19 09:30 Resp 20 02/02/19 04:00 BP 114/63 02/02/19 04:00 Pulse Ox 97 02/02/19 04:00 Intake & Output 02/01/19 02/02/19 02/02/19 18:59 06:59 18:59 Intake Total 100 200 Output Total 300 850 Balance -200 -650 Weight 90.718 kg Intake: Oral 100 200 Output: Urine 300 850 Other: Voiding Method Bedside Commode # Voids 2 2 - Exam In general patient is alert and oriented 3 in no apparent distress HEENT head normocephalic and atraumatic Neck is supple no JVD no goiter no lymphadenopathy Chest exam reveals a few scattered crackles no wheezing Cardiac exam reveals regular heart sounds S1 and S2 no gallops no murmurs Abdomen is soft nontender no organomegaly with normal bowel sounds Extremity exam reveals 2+ edema no cyanosis or clubbing Neurological examination reveals no gross focal deficit - Labs CBC & Chem 7: 02/02/19 05:17 02/02/19 05:17 Labs: Abnormal Lab Results - Last 24 Hours (Table) 02/01/19 02/01/19 02/01/19 Range/Units 11:33 16:47 20:30 Hgb (11.4-16.0) gm/dL Hct (34.0-46.0) % RDW (11.5-15.5) % PT (9.0-12.0) sec INR (<1.2) POC Glucose (mg/dL) 194 H 169 H 261 H (75-99) mg/dL Magnesium (1.6-2.3) mg/dL Albumin (3.5-5.0) g/dL 02/02/19 02/02/19 02/02/19 Range/Units 05:17 05:17 05:17 Hgb 10.4 L (11.4-16.0) gm/dL Hct 32.9 L (34.0-46.0) % RDW 16.9 H (11.5-15.5) % PT 16.8 H (9.0-12.0) sec INR 1.7 H (<1.2) POC Glucose (mg/dL) (75-99) mg/dL Magnesium 1.5 L (1.6-2.3) mg/dL Albumin 3.3 L (3.5-5.0) g/dL Assessment and Plan Plan: 1. Acute on chronic systolic CHF exacerbation: Continue IV Lasix 40 mg every 12 hours. Cardiology has added Entresto and Aldactone. They discontinued the Cardizem Elevated BNP 7430. Chest x-ray showing evidence of small bilateral pleural effusions and mild vascular venous congestion. Echo shows an EF of 20- 25% left Atrium severely dilated, moderate to severe mitral regurgitation, moderate tricuspid regurgitation and moderate pulmonary regurgitation 2. Hypomagnesemia : Magnesium 1.6. We'll give another gram of magnesium sulfate. Repeat magnesium level in a.m. 3. Coagulopathy: Patient is on Coumadin for atrial fibrillation. INR supratherapeutic 5.9 on admission. INR today is 3.1 Coumadin remains on hold. Continue to monitor PT/INRs. Hold Coumadin for now. No signs of bleeding 4. Leukocytosis likely reactive. White count normalized 5. Known history of chronic persistent atrial fibrillation: Anticoagulated with Coumadin. Continue Coreg. Coumadin on hold until INR becomes therapeutic 6. Essential hypertension: Blood pressures are stable 7. Diabetes mellitus type 2: Resume patient's Levemir and glipizide. Hold metformin for now during hospitalization. A1c 8.8. Continue Accu-Cheks every before meals and at bedtime with sliding scale coverage 8. History of mild intermittent asthma: Resume patient's inhalers. We'll change DuoNeb updrafts to 4 times a day and as needed. Patient seen by pulmonary felt that her shortness of breath was more related to CHF. They did add Pulmicort. 9. History of CVAs 10. Essential hypertension: Blood pressures are stable. Continue current medications. GI prophylaxis Pepcid and DVT prophylaxis, Patient improving possible discharge to home tomorrow
[2019-02-02 11:53] LABS: Glucose,Whole Blood 231 mg/dL (75-99)
--- NOTE | 2019-02-02 13:20 | P.PN ---
Subjective Progress Note Date: 02/02/19 This is a pleasant 78-year-old female who follows with a service attendant out of town, she has a known history of persistent atrial fibrillation on Coumadin for anticoagulation, prior CVA, hypertension, diabetes, hyperlipidemia, nonsmoker, who presents to the hospital with symptoms of progressively worsening shortness of breath as well as increase in peripheral edema. Chest x-ray on presentation here showed CHF exacerbation on background of chronic parenchymal changes, cardiomegaly, new small bilateral pleural effusions. EKG showed atrial fibrillation with moderately rapid ventricular response. Blood pressure 120/70 with a heart rate in the 70s, 95% on room air. White blood cell count 11.2, hemoglobin 10.7, platelet count 335. INR on admission 5.9, 4.5 this morning. Sodium 140, potassium 4.8, BUN 25 and creatinine 0.9. Magnesium level on admission 1.4, 1.3 this morning. Troponin 0.012, BNP level 7430. Patient was initiated on IV Lasix in the emergency room, she states that she has been putting out a significant amount of urine since that was initiated, overall she does state that her breathing is improving, she is still however short of breath and continues to have some bilateral peripheral edema. Patient had an echocardiogram with Doppler study performed this month which revealed an ejection fraction of 20-25%, moderate to severe mitral regurgitation, moderate tricuspid regurg and severe pulmonary hypertension. 01/31/2019 Patient was seen and examined this morning, she continues to put out adequate amounts of urine in her weight today is down 1 kg. Blood pressure 120/60 with a heart rate in the 80s, 96% on room air. White blood cell count 9.4, hemoglobin 10.3, platelet count 294. INR 3.1, sodium 139, potassium 3.8, BUN 20 and creatinine 0.8. 02/01: Patient is found sitting up and recliner and appears to be comfortable. She states her breathing is better and improving gradually each day. She denies any cough. weight is down an additional kilogram from yesterday.INR 1.9, BUN 20 creatinine 0.94, potassium 3.6.hemoglobin 10.4 02/02: Patient states that she walked in the hallway this morning and her breathing is stable. Daughter is at the bedside and discussed with both patient and her daughter to consider a biventricular pacemaker and patient will discuss this at her next cardiology appointment. Weight is down another half a kilogram from yesterday. We will plan to switch Lasix over to oral today. Magnesium has been replaced. WBC 8.3, hemoglobin 10.4, INR 1.7. Magnesium 1.5, BUN 17 creatinine 0.94. Electrolytes within normal limits. Physical exam: Gen: This is a 78-year-old female. She is sitting in recliner appears to be comfortable and in no acute distress. No respiratory distress noted. Afebrile, heart rate 88, blood pressure 96/54, pulse ox 97% on room air HEENT: Head is atraumatic, normocephalic. Pupils equal, round. Sclerae is anicteric. NECK: Supple. No JVD. No lymphadenopathy. No thyromegaly. LUNGS: diminished breath sounds to the bilateral bases. No wheezes or rhonchi. No intercostal retractions. HEART: irregularly irregular rate and rhythm. systolic murmur. ABDOMEN: Soft. Bowel sounds are present. No masses. No tenderness. EXTREMITIES: 1+ pedal edema. No calf tenderness. Dorsalis pedis palpable bilaterally. NEUROLOGICAL: Patient is awake, alert and oriented x3. Cranial nerves 2 through 12 are grossly intact. Assessment: Acute on chronic systolic heart failure Chronic persistent atrial fibrillation presenting with RVR Possible UTI and sepsis History of CVA Hypertension Hyperlipidemia Diabetes Plan: Change Lasix to 80 mg twice daily oral Continue to monitor daily weights and I&O, electrolytes and BUN/creatinine Continue Coreg 25 mg twice daily, Entresto 2426 milligrams twice daily, spironolactone 25 mg daily Resume Coumadin at 6 mg daily and monitor INR daily Patient to discuss option of biventricular pacemaker with her service attendant at the next visit. Further recommendations to follow based upon clinical course. Nurse practitioner note has been reviewed, I agree with the document and findings and plan of care. Patient has been seen and examined. Objective - Vital Signs Vital signs: Vital Signs Temp 98.2 F 02/02/19 08:00 Pulse 88 02/02/19 12:35 Resp 20 02/02/19 08:00 BP 96/54 02/02/19 08:00 Pulse Ox 97 02/02/19 08:00 Intake & Output 09/21/19 09/22/19 09/22/19 18:59 06:59 18:59 Intake Total 100 200 Output Total 300 850 Balance -200 -650 Weight 90.718 kg Intake: Oral 100 200 Output: Urine 300 850 Other: Voiding Method Bedside Commode # Voids 2 2 - Labs CBC & Chem 7: 02/02/19 05:17 02/02/19 05:17 Labs: Abnormal Lab Results - Last 24 Hours (Table) 02/01/19 02/01/19 02/02/19 Range/Units 16:47 20:30 05:17 Hgb 10.4 L (11.4-16.0) gm/dL Hct 32.9 L (34.0-46.0) % RDW 16.9 H (11.5-15.5) % PT (9.0-12.0) sec INR (<1.2) POC Glucose (mg/dL) 169 H 261 H (75-99) mg/dL Magnesium (1.6-2.3) mg/dL Albumin (3.5-5.0) g/dL 02/02/19 02/02/19 02/02/19 Range/Units 05:17 05:17 11:50 Hgb (11.4-16.0) gm/dL Hct (34.0-46.0) % RDW (11.5-15.5) % PT 16.8 H (9.0-12.0) sec INR 1.7 H (<1.2) POC Glucose (mg/dL) 231 H (75-99) mg/dL Magnesium 1.5 L (1.6-2.3) mg/dL Albumin 3.3 L (3.5-5.0) g/dL
[2019-02-02] MEDS ORDERED: FUROSEMIDE 80 MG TAB PO SCH (16:00)
[2019-02-02] MEDS: FUROSEMIDE 80 MG TAB PO SCH (16:15)
[2019-02-02 17:01] LABS: Glucose,Whole Blood 158 mg/dL (75-99)
[2019-02-02] MEDS: WARFARIN 3 MG TAB PO SCH (17:07)
[2019-02-02] MEDS: MAGNESIUM OXIDE 400 MG TAB PO SCH (20:21)
[2019-02-02] MEDS: MONTELUKAST 10 MG TAB PO SCH (20:21)
[2019-02-02] MEDS: ATORVASTATIN 10 MG TAB PO SCH (20:21)
[2019-02-02 21:17] LABS: Glucose,Whole Blood 235 mg/dL (75-99)
--- NOTE | 2019-02-02 21:20 | PN ---
PROGRESS NOTE DATE OF SERVICE: February 02, 2019. She is less short of breath. She has an occasional cough. Her weight has been trending down. On physical examination, her blood pressure is 128/58, respiratory rate of 20, pulse rate of 81, O2 saturation on room air is 96%. HEENT is unremarkable. Chest is clear. Cardiovascular system is S1, S2. Abdomen is soft. There is 1+ pedal edema. PT/INR is 1.7. White count 8.3, hemoglobin of 10.4. Sodium 139, potassium 3.6, chloride 101, bicarb 30, BUN 17, creatinine 0.98. IMPRESSION: At this time is: 1. Congestive heart failure. 2. Medical debility. 3. Obstructive sleep apnea likely. 4. Asthma with exacerbation. Continue bronchodilators. Aerosolized steroids. Keep her in negative fluid balance. Increase activity level. May require rehab. MMBLESSINGL / IJN: [id number] /
[2019-02-02] MEDS: INSULIN DETEMIR (LEVEMIR) 100 UNIT/ML SYR SQ SCH (22:03)
[2019-02-03 04:18] VITALS: RESP 18
--- NOTE | 2019-02-03 06:08 | P.CONS ---
History of Present Illness - Chief Complaint Medical debility - History of Present Illness I had the opportunity to see patient for inpatient rehab consultation with regard to medical debility. She was admitted to [facility] January 29 with shortness of breath related to asthma and CHF exacerbation and atrial fibrillation with RVR. Seen by cardiology. Chest x-ray consistent with CHF. PT reports supervision for transfers and gait 50 feet with roller walker, fatigues. OT prescribed. Previous functional history as elicited from patient: 78-year-old right-handed white female who is lives in a trailer home with son. Son does the cooking, laundry, driving. Patient describes independent with sitdown shower and gait with roller walker. Dr. Thompson his regular doctor. Patient denies tobacco has very rare drink. Review of Systems Review of systems: ENT: Denies sneezes or discharge. Eyes: Denies discharge or photophobia. Cardiac: Denies chest pain or palpitation. Pulmonary: Shortness of breath much improved/resolved. Breast: Denies discharge or lumps. Gastrointestinal: Denies nausea, emesis, constipation, diarrhea. Genitourinary: Denies discharge or frequency. Musculoskeletal: Denies muscle or bone aches. Neurologic: Denies motor or sensory change. Endocrine: Denies shakes or sweats. Oncology: Denies cancers. Dermatologic: Denies rash, itching, pruritus. ALLERGY/immunology: Denies sneezes, rashes. Past Medical History Past Medical History: Atrial Fibrillation, CVA/TIA, Hypertension Additional Past Medical History / Comment(s): Stroke x 2- History of Any Multi-Drug Resistant Organisms: None Reported Past Surgical History: Appendectomy, Cholecystectomy, Orthopedic Surgery, Tonsillectomy Additional Past Surgical History / Comment(s): pt. states shes had two knee surgeries Past Anesthesia/Blood Transfusion Reactions: No Reported Reaction Past Psychological History: Depression Additional Psychological History / Comment(s): pt. states she had depression after her , pt. states the depression is no longer an issue Smoking Status: Never smoker Past Alcohol Use History: None Reported Past Drug Use History: None Reported - Past Family History Son(s) Family Medical History: Myocardial Infarction (DC) Medications and Allergies Home Medications Medication Instructions Recorded Confirmed Type Carvedilol [Coreg] 25 mg PO BID 05/08/17 01/29/19 History Cholecalciferol [Vitamin D3 (25 5,000 unit PO DAILY 05/08/17 01/29/19 History Mcg = 1000 Iu)] Ferrous Sulfate [Iron (65 MG 325 mg PO DAILY 05/08/17 01/29/19 History Elemental)] Magnesium Oxide [Mag-Ox] 250 mg PO HS 05/08/17 01/29/19 History Vitamin E (Dl,Tocopheryl Acet) 400 unit PO DAILY 05/08/17 01/29/19 History [Vitamin E] Warfarin [Coumadin] 6 mg PO MOTUWEFRSA 05/08/17 01/29/19 History Warfarin [Coumadin] 9 mg PO SUTH 05/08/17 01/29/19 History metFORMIN HCL [Glucophage] 500 mg PO TID 05/08/17 01/29/19 History Atorvastatin [Lipitor] 10 mg PO HS tab 05/11/17 01/29/19 Rx Ascorbic Acid [Vitamin C] 500 mg PO DAILY 08/07/18 01/29/19 History Calcium Carbonate [Calcium] 600 mg PO DAILY 08/07/18 01/29/19 History Cyanocobalamin [Vitamin B-12] 500 mcg PO DAILY 08/07/18 01/29/19 History Insulin Detemir (Levemir) [Levemir] 25 unit SQ HS 08/07/18 01/29/19 History Diltiazem Cd [Cardizem CD] 240 mg PO DAILY #30 cap.er.24h 08/09/18 01/29/19 Rx glipiZIDE [Glucotrol] 10 mg PO BID 10/25/18 01/29/19 History Albuterol Inhaler [Ventolin Hfa 1 - 2 puff INHALATION RT-Q4H PRN 01/29/19 01/29/19 History Inhaler] Albuterol Nebulized [Ventolin 2.5 mg INHALATION RT-Q4H PRN 01/29/19 01/29/19 History Nebulized] Cranberry Fruit Extract [Cranberry] 500 mg PO DAILY 01/29/19 01/29/19 History Fluticasone/Salmeterol [Advair 1 inhalation PO RT-BID 01/29/19 01/29/19 History 100-50 Diskus] Allergies Allergy/AdvReac Type Severity Reaction Status Date / Time influenza virus vaccine qs Allergy Unknown Unknown Verified 01/29/19 15:36 (36 months up) [From Fluarix Quad [id number] (PF)] asparagus Allergy Rash/Hives Verified 01/29/19 15:36 aspirin Allergy Unknown Verified 01/29/19 15:36 Penicillins Allergy Rash/Hives Verified 01/29/19 15:36 radish Allergy Rash/Hives Verified 01/29/19 15:36 red dye Allergy Unknown Verified 01/29/19 15:36 GRAVY Allergy Rash/Hives Uncoded 10/25/18 09:21 Physical Exam Vitals: Vital Signs Temp Pulse Pulse Resp BP Pulse Ox 02/03/19 04:00 97.5 F L 96 18 120/77 96 02/03/19 00:00 97.4 F L 92 20 128/69 98 02/02/19 21:35 84 02/02/19 21:16 84 97 02/02/19 20:00 98 F 82 19 109/57 95 02/02/19 16:32 92 02/02/19 16:19 92 02/02/19 16:00 81 20 128/58 96 02/02/19 12:35 88 02/02/19 12:23 88 02/02/19 12:00 95 20 121/76 98 02/02/19 09:30 96 02/02/19 09:11 92 02/02/19 08:00 98.2 F 85 20 96/54 97 Intake and Output 02/02/19 02/02/19 02/03/19 14:59 22:59 06:59 Intake Total 80 Output Total 50 600 Balance -50 80 -600 Intake: Oral 80 Output: Urine 50 600 Other: Voiding Method Bedside Commode Bedside Commode # Voids 4 0 3 # Bowel Movements 1 Skin: Good color, texture, turgor. General: Overweight build and comfortable appearance. Head: Normocephalic, atraumatic. Eyes: Symmetric. Pupils equal round. Ears: Symmetric. Hearing within normal limits. Mouth: Clear. Neck: Supple. Carotid without bruit. Cardiac: Regular rate and rhythm. Lungs: Clear anteriorly and posteriorly. Abdomen: Soft active nontender, obese. Extremities: Normal tone. Neurological: Mental status: Alert, cooperative, pleasant. Cranial nerves: Symmetric facial tone and trapezius. Motor: Active movement all 4 limbs. Sensation: Intact throughout. DTRs: Symmetric and equal throughout. Mobility: Stands from Paty chair without physical assistance or verbal cueing. Results CBC & Chem 7: 02/02/19 05:17 02/02/19 05:17 Labs: Abnormal Lab Results - Last 24 Hours (Table) 02/02/19 02/02/19 02/02/19 Range/Units 05:17 05:17 11:50 PT 16.8 H (9.0-12.0) sec INR 1.7 H (<1.2) POC Glucose (mg/dL) 231 H (75-99) mg/dL Magnesium 1.5 L (1.6-2.3) mg/dL Albumin 3.3 L (3.5-5.0) g/dL 02/02/19 02/02/19 Range/Units 16:54 21:16 PT (9.0-12.0) sec INR (<1.2) POC Glucose (mg/dL) 158 H 235 H (75-99) mg/dL Magnesium (1.6-2.3) mg/dL Albumin (3.5-5.0) g/dL Assessment and Plan (1) Congestive heart failure Current Visit: Yes Status: Acute Code(s): I50.9 - HEART FAILURE, UNSPECIFIED SNOMED Code(s): 96271319 (2) Atrial fibrillation with RVR Current Visit: No Status: Acute Code(s): I48.91 - UNSPECIFIED ATRIAL FIBRILLATION SNOMED Code(s): 814999484651378 Plan: Impression: 1. Medical debility. 2. Acute systolic CHF. 3. A. fib with RVR. 4. Asthma. 5. Overweight. 6. History of stroke. 7. Hypertension. Some plan: At this time PT ongoing and OT prescribed. Patient demonstrated only supervision for functional mobility. Patient preferences return to home and wit h support of son. Didn't declines need for caregiver and in fact this most likely will work out as patient and son are quite familiar with each other already.
[2019-02-03 06:22] LABS: Glucose,Whole Blood 98 mg/dL (75-99)
[2019-02-03 06:27] LABS: INR 1.7 (<1.2)
[2019-02-03] MEDS: INSULIN ASPART (NovoLOG) 100 UNIT/ML VIAL SQ SCH ×2 (06:28→12:07)
[2019-02-03] MEDS: glipiZIDE 10 MG TAB PO SCH (06:46)
[2019-02-03] MEDS: CARVEDILOL 12.5 MG TAB PO SCH (06:46)
[2019-02-03] MEDS: FUROSEMIDE 80 MG TAB PO SCH (06:46)
[2019-02-03] MEDS: IPRATROPIUM-ALBUTEROL 3 ML NEB INHALATION SCH ×2 (08:02→11:37)
[2019-02-03] MEDS: BUDESONIDE 0.5 MG/2 ML NEBU INHALATION SCH (08:02)
[2019-02-03] MEDS: ASCORBIC ACID 500 MG TAB PO SCH (09:15)
[2019-02-03] MEDS: CYANOCOBALAMIN 500 MCG TAB PO SCH (09:15)
[2019-02-03] MEDS: SPIRONOLACTONE 25 MG TAB PO SCH (09:15)
[2019-02-03] MEDS: FAMOTIDINE 20 MG TAB PO SCH (09:15)
[2019-02-03] MEDS: CALCIUM CARBONATE 500 MG CHEWABLE PO SCH (09:15)
[2019-02-03] MEDS: VITAMIN E (DL,TOCOPHERYL ACET) 400 UNIT CAP PO SCH (09:15)
[2019-02-03] MEDS: SACUBITRIL/VALSARTAN 24 MG-26 MG TABLET PO SCH (09:15)
[2019-02-03] MEDS: FERROUS SULFATE 325 MG TAB PO SCH (09:15)
[2019-02-03] MEDS: NITROGLYCERIN OINT 1 INCH/GM PACKET TOPICAL SCH ×2 (09:16→12:06)
--- NOTE | 2019-02-03 10:22 | P.DS ---
Providers Date of admission: 01/29/19 16:47 Expected date of discharge: 02/10/19 Attending physician: Tori Barney Consults: 01/29/19 16:47 Consult Physician Routine Consulting Provider: [facility] Consult Reason/Comments: CHF exacerbation Do you want consulting provider notified?: Yes 01/30/19 09:41 Consult Physician Routine Consulting Provider: Abhishek Levi Consult Reason/Comments: shortness of breath Do you want consulting provider notified?: Yes 02/01/19 16:15 Consult Physician Routine Consulting Provider: Goyo Camacho Consult Reason/Comments: medical debility Do you want consulting provider notified?: Yes Primary care physician: [facility] Course: Discharge diagnosis 1. Acute on chronic systolic CHF exacerbation: Patient discharged with Lasix 40 mg twice a day, Entresto and Aldactone 25 daily. They discontinued the Cardizem. Elevated BNP 7430. Chest x-ray showing evidence of small bilateral pleural effusions and mild vascular venous congestion. Echo shows an EF of 20- 25% left Atrium severely dilated, moderate to severe mitral regurgitation, moderate tricuspid regurgitation and moderate pulmonary regurgitation 2. Hypomagnesemia : Improved with magnesium supplement. Magnesium at discharge is 1.7 3. Coagulopathy: Patient is on Coumadin for atrial fibrillation. INR supratherapeutic 5.9 on admission. No signs of bleeding. INR at discharge is 1.7. Patient will get Coumadin 7.5 mg today. Check PT/INR on with her consumer safety officer. Recommend Coumadin 6 mg daily for now. 4. Leukocytosis likely reactive. White count normalized 5. Known history of chronic persistent atrial fibrillation: Anticoagulated with Coumadin. Continue Coreg. Continue Coumadin for anticoagulation 6. Essential hypertension: Blood pressures are stable. Continue current medications 7. Diabetes mellitus type 2: Continue Levemir, glipizide and metformin A1c 8.8. Recommend the patient checks blood sugars at least twice a day. And follow-up with her PCP for further adjustments in medications 8. History of mild intermittent asthma: Continue inhalers. Patient follow-up with Dr. HEIDY Levi in 1 week. He did add Singulair during this admission. 9. History of CVAs 10. Iron deficiency anemia: Hemoglobin at discharge is 10.4. Iron level low at 32. Will increase her ferrous sulfate to 325 mg twice a day. Patient had no active signs of bleeding. Recommend checking CBC in 3 days Hospital course This is a 78-year-old female, a patient of Dr. Thompson. She has a known past medical history of atrial fibrillation, hypertension, CVA, asthma, diabetes mellitus and hyperlipidemia. Patient reports increase in shortness of breath yesterday. She is having difficulty completing her usual activities. She has swelling in the lower extremities but does report that this is chronic. She had been on Lasix a while ago and reports that her doctor took her off of it. Patient is also noted some weight gain over the last few days. She presents to the ER with shortness of breath chest x-ray showing small bilateral pleural effusions mild vascular venous congestion and cardiomegaly. BNP elevated at 7430. Patient is being treated for CHF exacerbation and started on IV Lasix in the ER. Patient has noted improvement in her shortness of breath since being started on the Lasix. She denies any chest pain, cough, fever, chills, sweats. Denies any nausea or vomiting, bowel movement changes or urinary symptoms. Cardiology is on consult. Echo from 01/22/2019 is worse than echo in July. It shows an EF of 20-25% left Atrium severely dilated. Moderate to severe mitral regurgitation, moderate tricuspid regurgitation and moderate pulmonary regurgitation. She also noted to be wheezy yesterday. And had been taking her nebulizer treatments. Her pearl diver is Dr. HEIDY Levi. Patient uses a walker to help her ambulate. Her son lives with her. 01/31/19 patient's shortness of breath is showing improvement. She's sitting in bedside chair. Weight his decreased from 93.1 kg to 92.3 kg. Patient seen by cardiology and pulmonary service. The cardiology has discontinue the Cardizem and place her on an Trostel and Aldactone for her systolic CHF exacerbation. Patient denies any chest pain or cough. Denies any nausea or vomiting. Reports regular bowel movements. Denies any difficulty urinating. Denies any burning with urination. Patient has not had a recent urinary tract infection. On 02/01/2019 patient was seen and examined on the telemetry floor she is alert and oriented 3 in no apparent distress she is still complaining of shortness of breath with activity she is complaining of going to urinate multiple times she is still complaining of lower extremity edema otherwise she denies any complaints there is no fever or chills no headache or dizziness no chest pain no cough no nausea or vomiting no abdominal pain no diarrhea no burning was urination no frequency or urgency and no hematuria On 02/02/2019 patient was seen and examined on the telemetry floor, she is doing better she is reporting less shortness of breath, there is no fever or chills no headache or dizziness no chest pain no cough no nausea or vomiting no abdominal pain no diarrhea no burning with urination no frequency or urgency and no hematuria, she is alert and oriented 3 there is no weakness or numbness in any of her extremities 02/03/2019 patient has been cleared by cardiology for discharge. She is medically stable for discharge. She has no new complaints. She has been up and and relating to the restroom and back without shortness of breath. During this admission cardiology has added an Entresto and Aldactone. Initially they placed her on IV Lasix for her congestive heart failure exacerbation. She was switched over to oral Lasix 80 mg twice a day. Patient reports urinating very frequently with the Lasix 80 twice a day. In the past she had been on Lasix 20 daily. We'll decrease the Lasix to 40 twice a day. Patient is scheduled to follow-up with her consumer safety officer on . Cardiology recommends that patient discuss with her consumer safety officer the option of biventricular pacemaker at her next visit. Patient will get a 30 month free coupon for the Entresto while they figure out if insurance covers the medication. Recommend checking CBC, BMP and PT/INR in 3 days I performed an examination of the patient and discussed their management with the physician Jde Developer. I have reviewed the Physician Jde Developer's notes and agree with the documented findings and plan of care Patient Condition at Discharge: Stable Plan - Discharge Summary New Discharge Prescriptions: New Spironolactone [Aldactone] 25 mg PO DAILY #30 tab Sacubitril/Valsartan [Entresto 24 mg-26 mg Tablet] 1 each PO BID #60 tablet Montelukast [Singulair] 10 mg PO HS #30 tab Warfarin [Coumadin] 6 mg PO DAILY@1800 #30 tab Furosemide [Lasix] 40 mg PO BID #60 tablet Continue Magnesium Oxide [Mag-Ox] 250 mg PO HS Vitamin E (Dl,Tocopheryl Acet) [Vitamin E] 400 unit PO DAILY Cholecalciferol [Vitamin D3 (25 Mcg = 1000 Iu)] 5,000 unit PO DAILY metFORMIN HCL [Glucophage] 500 mg PO TID Carvedilol [Coreg] 25 mg PO BID Atorvastatin [Lipitor] 10 mg PO HS tab Calcium Carbonate [Calcium] 600 mg PO DAILY Cyanocobalamin [Vitamin B-12] 500 mcg PO DAILY Ascorbic Acid [Vitamin C] 500 mg PO DAILY Insulin Detemir (Levemir) [Levemir] 25 unit SQ HS glipiZIDE [Glucotrol] 10 mg PO BID Cranberry Fruit Extract [Cranberry] 500 mg PO DAILY Albuterol Nebulized [Ventolin Nebulized] 2.5 mg INHALATION RT-Q4H PRN PRN Reason: Shortness Of Breath Albuterol Inhaler [Ventolin Hfa Inhaler] 1 - 2 puff INHALATION RT-Q4H PRN PRN Reason: Shortness Of Breath Fluticasone/Salmeterol [Advair 100-50 Diskus] 1 inhalation PO RT-BID Changed Ferrous Sulfate [Iron (65 MG Elemental)] 325 mg PO BID #60 tab Discontinued Warfarin [Coumadin] 6 mg PO MOTUWEFRSA Warfarin [Coumadin] 9 mg PO SUTH Diltiazem Cd [Cardizem CD] 240 mg PO DAILY #30 cap.er.24h Discharge Medication List Carvedilol [Coreg] 25 mg PO BID 05/08/17 [History] Cholecalciferol [Vitamin D3 (25 Mcg = 1000 Iu)] 5,000 unit PO DAILY 05/08/17 [History] Magnesium Oxide [Mag-Ox] 250 mg PO HS 05/08/17 [History] Vitamin E (Dl,Tocopheryl Acet) [Vitamin E] 400 unit PO DAILY 05/08/17 [History] metFORMIN HCL [Glucophage] 500 mg PO TID 05/08/17 [History] Atorvastatin [Lipitor] 10 mg PO HS tab 05/11/17 [Rx] Ascorbic Acid [Vitamin C] 500 mg PO DAILY 08/07/18 [History] Calcium Carbonate [Calcium] 600 mg PO DAILY 08/07/18 [History] Cyanocobalamin [Vitamin B-12] 500 mcg PO DAILY 08/07/18 [History] Insulin Detemir (Levemir) [Levemir] 25 unit SQ HS 08/07/18 [History] glipiZIDE [Glucotrol] 10 mg PO BID 10/25/18 [History] Albuterol Inhaler [Ventolin Hfa Inhaler] 1 - 2 puff INHALATION RT-Q4H PRN 01/29/19 [History] Albuterol Nebulized [Ventolin Nebulized] 2.5 mg INHALATION RT-Q4H PRN 01/29/19 [History] Cranberry Fruit Extract [Cranberry] 500 mg PO DAILY 01/29/19 [History] Fluticasone/Salmeterol [Advair 100-50 Diskus] 1 inhalation PO RT-BID 01/29/19 [History] Ferrous Sulfate [Iron (65 MG Elemental)] 325 mg PO BID #60 tab 02/03/19 [Rx] Furosemide [Lasix] 40 mg PO BID #60 tablet 02/03/19 [Rx] Montelukast [Singulair] 10 mg PO HS #30 tab 02/03/19 [Rx] Sacubitril/Valsartan [Entresto 24 mg-26 mg Tablet] 1 each PO BID #60 tablet 02/03/19 [Rx] Spironolactone [Aldactone] 25 mg PO DAILY #30 tab 02/03/19 [Rx] Warfarin [Coumadin] 6 mg PO DAILY@1800 #30 tab 02/03/19 [Rx] Follow up Appointment(s)/Referral(s): Cardiology, [Other] - 1 Week (Please schedule an appointment with your consumer safety officer) Miranda Thompson MD [Primary Care Provider] - 02/10/19 1:00 pm (Sunday) Patient Instructions/Handouts: Heart Failure (DC) Activity/Diet/Wound Care/Special Instructions: Diet: cardiac Activity: as tolerated Discharge Disposition: HOME SELF-CARE
[2019-02-03 10:47] VITALS: BP 115/55; TEMP 98
[2019-02-03 11:39] VITALS: PULSE 88
[2019-02-03 11:41] LABS: Glucose,Whole Blood 190 mg/dL (75-99)
--- NOTE | 2019-02-03 17:39 | PN ---
PROGRESS NOTE DATE OF SERVICE: 02/03/2019. Discharge planning is in progress. She is less short of breath. On physical examination, vital signs are stable. She is afebrile. Her chest is clear. Cardiovascular system reveals an S1, S2. Abdomen is soft. There is 1+ pedal edema. IMPRESSION: At this time is: 1. Congestive heart failure with acute exacerbation. 2. Asthma that seems to be somewhat quiescent at this time. 3. Possible obstructive sleep apnea. Agree with discharge planning with close outpatient followup. Her prognosis is fair. MMODL / IJN: [id number] /
[2019-02-03] MEDS ORDERED: WARFARIN 7.5 MG TAB PO SCH (18:00)
== END 2019-02-03 14:18 | disposition home or self-care (01) | DRG 292 ==
LOC: EC 14:11 → 3SCARD 16:47
PROVIDERS: ADMIT Internal Medicine; ATTEND Internal Medicine
DX: I11.0 Hypertensive heart disease with heart failure (principal); I48.1 Persistent atrial fibrillation; J45.21 Mild intermittent asthma with (acute) exacerbation; I50.23 Acute on chronic systolic (congestive) heart failure; I27.20 Pulmonary hypertension, unspecified; I08.1 Rheumatic disorders of both mitral and tricuspid valves; E83.42 Hypomagnesemia; I37.1 Nonrheumatic pulmonary valve insufficiency; D50.9 Iron deficiency anemia, unspecified; E78.5 Hyperlipidemia, unspecified; E66.9 Obesity, unspecified; Z68.33 Body mass index [BMI] 33.0-33.9, adult; Z79.4 Long term (current) use of insulin; Z79.01 Long term (current) use of anticoagulants; Z79.51 Long term (current) use of inhaled steroids; Z79.899 Other long term (current) drug therapy; Z71.3 Dietary counseling and surveillance; Z90.49 Acquired absence of other specified parts of digestive tract; Z86.59 Personal history of other mental and behavioral disorders; Z86.73 Personal history of transient ischemic attack (TIA), and cerebral infarction without residual deficits; Z98.890 Other specified postprocedural states; Z88.6 Allergy status to analgesic agent; Z91.02 Food additives allergy status; Z88.0 Allergy status to penicillin; Z88.7 Allergy status to serum and vaccine; Z91.018 Allergy to other foods; Z82.49 Family history of ischemic heart disease and other diseases of the circulatory system; E11.9 Type 2 diabetes mellitus without complications
CPT/HCPCS: 36415; 71046; 80053; 82728; 83036; 83540; 83550; 83735; 83880; 84484; 85025; 85610; 85730; 93005; 94640; 94760; 96374; 99285

== ENCOUNTER → 2020-09-30 | Outpatient (CLI) | payer MEDICARE ==
--- NOTE | 2020-10-01 10:01 | ECHOF ---
Referral Reason:I10 essential hypertension MEASUREMENTS -------- HEIGHT: 165.1 cm WEIGHT: 79.4 kg BP: RVIDd: 3.6 cm (< 3.3) IVSd: 1.2 cm (0.6 - 1.1) LVIDd: 4.9 cm (3.9 - 5.3) LVPWd: 1.4 cm (0.6 - 1.1) IVSs: 1.6 cm LVIDs: 3.6 cm LVPWs: 1.9 cm LAESV Index (A-L): 65.45 ml/m Ao Diam: 2.5 cm (2.0 - 3.7) AV Cusp: 1.4 cm (1.5 - 2.6) LA Diam: 4.3 cm (2.7 - 3.8) MV EXCURSION: 18.048 mm (> 18.000) MV EF SLOPE: 123 mm/s (70 - 150) EPSS: 1.3 cm AR PHT: 496 ms RAP: 5.00 mmHg RVSP: 41.02 mmHg FINDINGS -------- Sinus rhythm. This was a technically adequate study. The left ventricular size is normal. There is mild concentric left ventricular hypertrophy. Overa ll left ventricular systolic function is low-normal with, an EF between 50 - 55 %. Increased Lap Gr katie II Diastolic Dysfunction. The right ventricle is mildly enlarged. LA is severely dilated >40 ml/m2 The right atrial size is normal. Electronic pacemaker lead seen in the right atrial cavity. Interatrial and interventricular septum intact. There is moderate aortic valve sclerosis. There is mild aortic regurgitation. There is no evidenc e of aortic stenosis. [id number] mitral regurgitation is present. [id number] tricuspid regurgitation present. There is mild to moderate pulmonary hypertension. The right ventricular systolic pressure, as measured by Doppler, is 41.02mmHg. There is no pulmonic regurgitation present. The aortic root size is normal. IVC Not well visulized. There is no pericardial effusion. CONCLUSIONS -------- 1. The left ventricular size is normal. 2. There is mild concentric left ventricular hypertrophy. 3. Overall left ventricular systolic function is low-normal with, an EF between 50 - 55 %. 4. Increased Lap Grade II Diastolic Dysfunction. 5. The right ventricle is mildly enlarged. 6. LA is severely dilated >40 ml/m2 7. There is moderate aortic valve sclerosis. 8. There is mild aortic regurgitation. 9. Wmze-hb-[id number] mitral regurgitation is present. 10. Zvaj-[id number] tricuspid regurgitation present. 11. There is mild to moderate pulmonary hypertension. EXTENSION AGENT: Meena Peck RDCS
== END | disposition home or self-care (01) ==
LOC: RADECHMAIN 14:40
PROVIDERS: ATTEND Internal Medicine Cardiovascular Disease
DX: I08.3 Combined rheumatic disorders of mitral, aortic and tricuspid valves (principal); I27.20 Pulmonary hypertension, unspecified
CPT/HCPCS: 93306

== ENCOUNTER 2021-01-15 12:32 | Inpatient (IN) | payer MEDICARE ==
--- NOTE | 2021-01-15 13:00 | ED ---
General Adult HPI - General Source: patient, EMS, RN notes reviewed, old records reviewed Mode of arrival: EMS Limitations: no limitations <Timo Recinos - Last Filed: 01/15/21 15:05> <Yunier Rowley - Last Filed: 01/15/21 17:13> - General Chief complaint: Fall Stated complaint: fall Time Seen by Provider: 01/15/21 12:50 - History of Present Illness Initial comments: This is an 80-year-old female presents emergency Department complaining that she fell earlier today and now complains of right knee pain. Patient states she's had replacement of that knee. Patient denies any foot pain ankle pain or any hip pain. Patient denies hitting her head or neck. Patient denies any other complaints aside from right knee pain (Timo Recinos) - Related Data Home Medications Medication Instructions Recorded Confirmed Carvedilol [Coreg] 25 mg PO BID 05/08/17 01/15/21 Cholecalciferol [Vitamin D3 (25 5,000 unit PO DAILY 05/08/17 01/15/21 Mcg = 1000 Iu)] Magnesium Oxide [Mag-Ox] 250 mg PO DAILY 05/08/17 01/15/21 Vitamin E (Dl,Tocopheryl Acet) 400 unit PO DAILY@1200 05/08/17 01/15/21 [Vitamin E (400 Iu = 180 mg)] metFORMIN HCL [Glucophage] 500 mg PO TID 05/08/17 01/15/21 Calcium Carbonate [Calcium] 600 mg PO DAILY@1200 08/07/18 01/15/21 Cyanocobalamin [Vitamin B-12] 500 mcg PO DAILY 08/07/18 01/15/21 Cranberry Fruit Extract [Cranberry] 500 mg PO DAILY 01/29/19 01/15/21 Furosemide [Lasix] 40 mg PO DAILY 01/15/21 01/15/21 Losartan Potassium [Cozaar] 50 mg PO DAILY 01/15/21 01/15/21 Warfarin Sodium 3 mg PO SUTUTH 01/15/21 01/15/21 Warfarin [Coumadin] 6 mg PO MOWEFRSA 01/15/21 01/15/21 glipiZIDE [Glucotrol] 10 mg PO BID 01/15/21 01/15/21 Previous Rx's Medication Instructions Recorded Atorvastatin [Lipitor] 10 mg PO HS tab 05/11/17 Ferrous Sulfate [Iron (65 MG 325 mg PO BID #60 tab 02/03/19 Elemental)] Montelukast [Singulair] 10 mg PO HS #30 tab 02/03/19 Allergies Allergy/AdvReac Type Severity Reaction Status Date / Time influenza virus vaccine qs Allergy Unknown Unknown Verified 01/15/21 16:29 2017-18 (36 months up) [From Fluarix Quad 4012-5863 (PF)] aspirin Allergy Unknown Verified 01/15/21 16:29 Penicillins Allergy Rash/Hives Verified 01/15/21 16:29 radish Allergy Rash/Hives Verified 01/15/21 16:29 red dye Allergy Unknown Verified 01/15/21 16:29 Review of Systems ROS Other: All systems not noted in ROS Statement are negative. <Timo Recinos - Last Filed: 01/15/21 15:05> ROS Other: All systems not noted in ROS Statement are negative. <Yunier Rowley - Last Filed: 01/15/21 17:13> ROS Statement: Those systems with pertinent positive or pertinent negative responses have been documented in the HPI. Past Medical History Past Medical History: Atrial Fibrillation, CVA/TIA, Hypertension Additional Past Medical History / Comment(s): Stroke x 2- History of Any Multi-Drug Resistant Organisms: None Reported Past Surgical History: Appendectomy, Cholecystectomy, Orthopedic Surgery, Tonsillectomy Additional Past Surgical History / Comment(s): pt. states shes had two knee surgeries Past Anesthesia/Blood Transfusion Reactions: No Reported Reaction Past Psychological History: Depression Past Alcohol Use History: None Reported Past Drug Use History: None Reported - Past Family History Son(s) Family Medical History: Myocardial Infarction ([place]) <Timo Recinos - Last Filed: 01/15/21 15:05> General Exam Limitations: no limitations <Timo Recinos - Last Filed: 01/15/21 15:05> - General Exam Comments Initial Comments: GENERAL Patient is well-developed and well-nourished. Patient is in mild distress. EYES Patient's pupils are equal and round. Extraocular motion is intact SKIN Unremarkable NEURO The patient is alert and oriented 3 PYSCH Patient has normal interpersonal interactions. MUSCULOSKELETAL Patient's right knee does not appear to be swollen but it is painful to touch both medially and laterally. (Timo Recinos) Course <Yunier Rowley - Last Filed: 01/15/21 17:13> Vital Signs 01/15/21 12:54 Temperature 98.2 F Pulse Rate 72 Respiratory 16 Rate Blood Pressure 158/71 O2 Sat by Pulse 99 Oximetry - Reevaluation(s) Reevaluation #1: 01/15/21 15:46 Patient was endorsed to me by Dr. Recinos (secondary to shift change) with the patient's UA still pending. Dr. Recinos felt the patient could be discharged home after her UA resulted with or without antibiotics depending on her UA results. Patient's UA shows evidence of a UTI. I went to discuss the patient's test results with the patient and her son, and the patient's son states that the patient cannot go home the way she is now. He states that she is unable to ambulate very far, and he states that she needs to go up stairs to get into her residence. He is adamant that the patient be admitted to the hospital at this time. IV antibiotics and labs have been ordered. 01/15/21 15:53 Case, H&P, test results thus far and ED management were discussed with Dr. Barney. He accepts hospital admission. He has no further recommendations at this time. (Yunier Rowley) Medical Decision Making <Timo Recinos - Last Filed: 01/15/21 15:05> - Lab Data Result diagrams: 01/15/21 16:41 01/15/21 16:41 <Yunier Rowley - Last Filed: 01/15/21 17:13> - Medical Decision Making X-ray of the knee shows no acute abnormality I went into reevaluate the patient after I saw the x-ray showed patient was able to stand on it. Son was in the room for the first time and he indicated that he thought she might have urinary tract infection so urine was obtained and sent. Dr. Thomas are will follow-up on this patient starting at 3 PM (Timo Recinos) - Lab Data Lab Results 01/15/21 01/15/21 Range/Units 14:35 15:00 POC Glucose (mg/dL) 280 H (75-99) mg/dL POC Glu Entry Level Marketing Assistant ID Jen Calles Urine Color Yellow Urine Appearance Cloudy H (Clear) Urine pH 7.5 (5.0-8.0) Ur Specific [place] 1.016 (1.001-1.035) Urine Protein 2+ H (Negative) Urine Glucose (UA) Negative (Negative) Urine Ketones 1+ H (Negative) Urine Blood Trace H (Negative) Urine Nitrite Negative (Negative) Urine Bilirubin Negative (Negative) Urine Urobilinogen <2.0 (<2.0) mg/dL Ur Leukocyte Esterase Large H (Negative) Urine RBC 14 H (0-5) /hpf Urine WBC >182 H (0-5) /hpf Ur Squamous Epith Cells <1 (0-4) /hpf Urine Bacteria Rare H (None) /hpf Hyaline Casts 1 (0-2) /lpf Urine Mucus Rare H (None) /hpf Urine Yeast (Budding) Few H (None) /hpf Disposition <Timo Recinos - Last Filed: 01/15/21 15:05> Is patient prescribed a controlled substance at d/c from ED?: No Time of Disposition: 15:55 <Yunier Rowley - Last Filed: 01/15/21 17:13> Clinical Impression: Fall, Knee pain, UTI (urinary tract infection) Disposition: ADMITTED IP TO THIS HOSP Condition: Stable
--- NOTE | 2021-01-15 14:15 | XR ---
EXAMINATION TYPE: XR knee complete RT DATE OF EXAM: 01/15/2021 COMPARISON: 05/08/2017 HISTORY: 80 years Female. STUDY INDICATION GIVEN: Trauma . TECHNIQUE: 3 radiographs of the right knee IMPRESSION: Intact arthroplasty hardware. Generalized osteopenia. No acute fracture or dislocation seen. Trace ann int effusion. Vascular calcifications noted increased compared to prior
[2021-01-15 14:37] LABS: Glucose,Whole Blood 280 mg/dL (75-99)
[2021-01-15 15:23] LABS: Appearance,Urine Cloudy (Clear); Bacteria,Urine Rare /hpf; Bilirubin,Urine Negative (Negative); Blood,Urine Trace (Negative); Budding Yeast,Urine Few /hpf; Color,Urine Yellow; Glucose,Urine (UA) Negative (Negative); Hyaline Casts,Urine 1 /lpf (0-2); Ketones,Urine 1+ (Negative); Leukocyte Esterase,Urine Large (Negative); Mucus,Urine Rare /hpf; Nitrite,Urine Negative (Negative); PH, Urine 7.5 (5.0-8.0); Protein,Urine 2+ (Negative); RBC,Urine 14 /hpf (0-5); Specific Gravity,Urine 1.016 (1.001-1.035); Squamous Epithelial Cell,Urine <1 /hpf (0-4); Urobilinogen,Urine <2.0 mg/dL (<2.0); WBC,Urine >182 /hpf (0-5)
[2021-01-15] MEDS ORDERED: ACET/COD 300 MG/30 MG STARTER PACK 6 TAB BTL PO STA (15:23)
[2021-01-15] MEDS ORDERED: NITROFURANTOIN MONOHYD/M-CRYST 100 MG CAP PO STA (15:42)
[2021-01-15] MEDS ORDERED: MORPHINE SULFATE 4 MG/ML SYRINGE IV PRN (15:55)
[2021-01-15] MEDS ORDERED: NALOXONE 0.4 MG/ML 1 ML VIAL IV PRN (15:55)
[2021-01-15 16:50] LABS: Basophils % (A) 0 %; Eosinophils # (A) 0.1 k/uL (0-0.7); Eosinophils % (A) 1 %; HCT 33.3 % (34.0-46.0); Lymphocytes # (A) 0.6 k/uL (1.0-4.8); Lymphocytes % (A) 4 %; MCH 30.6 pg (25.0-35.0); MCHC 33.1 g/dL (31.0-37.0); MCV 92.5 fL (80.0-100.0); Mean Platelet Volume 9.5; Monocytes # (A) 0.6 k/uL (0-1.0); Monocytes % (A) 3 %; Neutrophils # (A) 15.3 k/uL (1.3-7.7); Neutrophils % (A) 92 %; Platelet Count 211 k/uL (150-450); RDW 13.5 % (11.5-15.5); WBC 16.7 k/uL (3.8-10.6)
[2021-01-15 17:00] LABS: Albumin 4.5 g/dL (3.5-5.0); Total Bilirubin 1.8 mg/dL (0.2-1.3); Total Protein 8.2 g/dL (6.3-8.2)
[2021-01-15 17:01] LABS: Potassium 5.6 mmol/L (3.5-5.1)
[2021-01-15 17:05] LABS: Partial Thromboplastin Time 28.8 sec (22.0-30.0); Prothrombin Time 19.8 sec (9.0-12.0)
[2021-01-15 17:45] LABS: Glucose,Whole Blood 302 mg/dL (75-99)
[2021-01-15 20:23] LABS: Glucose,Whole Blood 352 mg/dL (75-99)
[2021-01-15] MEDS ORDERED: SODIUM CHLORIDE 0.9% 1,000 ML IV STA (22:52)
[2021-01-16] MEDS: ACETAMINOPHEN TAB 500 MG TAB PO PRN ×2 (01:00→16:04)
[2021-01-16 05:40] LABS: ALT 11 U/L (4-34); AST 24 U/L (14-36); African American GFR (CKD) 33 (>60 ml/min/1.73 sqM); Albumin/Globulin Ratio 1.3; Alkaline Phosphatase 73 U/L (38-126); Anion Gap 16 mmol/L; Blood Urea Nitrogen 40 mg/dL (7-17); Calcium 10.8 mg/dL (8.4-10.2); Carbon Dioxide 20 mmol/L (22-30); Chloride 97 mmol/L (98-107); Globulin 3.1 g/dL; Glucose 314 mg/dL (74-99); Non-African American GFR(CKD) 29 (>60 ml/min/1.73 sqM); Potassium 4.7 mmol/L (3.5-5.1); Sodium 133 mmol/L (137-145); Total Bilirubin 1.3 mg/dL (0.2-1.3); Total Protein 7.1 g/dL (6.3-8.2)
[2021-01-16 08:00] LABS: Glucose,Whole Blood 350 mg/dL (75-99)
[2021-01-16] MEDS: glipiZIDE 10 MG TAB PO SCH ×2 (08:18→19:47)
[2021-01-16] MEDS: VITAMIN E (DL,TOCOPHERYL ACET) 400 UNIT (180 MG) CAP PO SCH (08:18)
[2021-01-16] MEDS: CALCIUM CARBONATE 500 MG CHEWABLE PO SCH (08:18)
[2021-01-16] MEDS: LOSARTAN 50 MG TAB PO SCH (08:19)
[2021-01-16] MEDS: CYANOCOBALAMIN 500 MCG TAB PO SCH (08:19)
[2021-01-16] MEDS: FERROUS SULFATE 325 MG TAB PO SCH ×2 (08:19→19:47)
[2021-01-16] MEDS: carvediloL 12.5 MG TAB PO SCH ×2 (08:19→18:03)
[2021-01-16] MEDS: MAGNESIUM OXIDE 400 MG TAB PO SCH (08:19)
[2021-01-16] MEDS: CHOLECALCIFEROL 25 MCG (1000 IU) TABLET PO SCH (08:19)
[2021-01-16 08:52] LABS: HCT 32.4 % (37.2-46.3); HGB 10.2 g/dL (12.0-15.0); MCH 28.9 pg (27.0-32.0); MCHC 31.5 g/dL (32.0-37.0); MCV 91.8 fL (80.0-97.0); Mean Platelet Volume 12.9 fL (9.5-12.2); Platelet Count 201 X 10*3/uL (140-440); RBC 3.53 X 10*6/uL (4.10-5.20); RDW 13.1 % (11.5-14.5); WBC 24.51 X 10*3/uL (4.50-10.00)
[2021-01-16] MEDS ORDERED: metFORMIN 500 MG TAB PO SCH (09:00)
[2021-01-16] MEDS ORDERED: NON FORMULARY DRUG (Cranberry Fruit Extract [Cranberry] 500 MG Tablet) PO SCH (09:00)
[2021-01-16] MEDS ORDERED: FUROSEMIDE 40 MG TAB PO SCH (09:00)
[2021-01-16 09:16] LABS: INR 2.16 (0.90-1.11); Prothrombin Time 22.4 sec (9.9-11.9)
[2021-01-16 11:08] LABS: Basophils # (A) 0.06 X 10*3/uL (0.00-0.10); Basophils % (A) 0.2 %; Eosinophils # (A) 0 X 10*3/uL (0.04-0.35); Eosinophils % (A) 0 %; Lymphocytes # (A) 1.09 X 10*3/uL (0.90-5.00); Lymphocytes % (A) 4.4 %; Monocytes # (A) 1.48 X 10*3/uL (0.20-1.00); Neutrophils # (A) 21.64 X 10*3/uL (1.80-7.70); Neutrophils % (A) 88.4 %
--- NOTE | 2021-01-16 11:31 | P.HPIM ---
History of Present Illness H&P Date: 01/16/21 Chief Complaint: Fall UTI knee pain This is a 80-year-old female patient who presented to the ER with concerns of fall with right knee pain. Per ER report patient denies hitting her head. Patient is also confused no family currently at bedside but per nursing staff patient is normally alert and oriented 3 . Patient has a past medical history of atrial fibrillation in which he is on Coumadin CVA and hypertension. X-ray of knee completed showing intact arthroplasty hardware generalized osteopenia no acute fracture dislocation seen. Trace joint effusion vascular calcium medications noted increased compared to prior. Urinary analysis positive for UTI. Patient has been started on Rocephin. White blood cell increasing to 24.51 despite antibiotic. Will consult oncology services in order chest x-ray blood culture and urine culture. Also concerns in regards altered mental status changes will order head CT given patient's history of CVA and on Coumadin. INR is currently therapeutic. Creatinine elevated at 1.67 and bun 40. Will increase fluids to 75. At this time patient is complaining of generalized pain unable to specify. Patient denies chest pain. Patient does deny shortness of breath. Patient denies any nausea vomiting or diarrhea. Review of Systems Please refer to HPI otherwise unremarkable Past Medical History Past Medical History: Atrial Fibrillation, CVA/TIA, Hypertension Additional Past Medical History / Comment(s): Stroke x 2- PACEMAKER History of Any Multi-Drug Resistant Organisms: None Reported Past Surgical History: Appendectomy, Cholecystectomy, Orthopedic Surgery, Tonsillectomy Additional Past Surgical History / Comment(s): pt. states shes had two knee surg eries Past Anesthesia/Blood Transfusion Reactions: No Reported Reaction Additional Psychological History / Comment(s): . Smoking Status: Never smoker Past Alcohol Use History: None Reported Past Drug Use History: None Reported - Past Family History Son(s) Family Medical History: Myocardial Infarction ([place]) Medications and Allergies Home Medications Medication Instructions Recorded Confirmed Type Carvedilol [Coreg] 25 mg PO BID 05/08/17 01/15/21 History Cholecalciferol [Vitamin D3 (25 5,000 unit PO DAILY 05/08/17 01/15/21 History Mcg = 1000 Iu)] Magnesium Oxide [Mag-Ox] 250 mg PO DAILY 05/08/17 01/15/21 History Vitamin E (Dl,Tocopheryl Acet) 400 unit PO DAILY@1200 05/08/17 01/15/21 History [Vitamin E (400 Iu = 180 mg)] metFORMIN HCL [Glucophage] 500 mg PO TID 05/08/17 01/15/21 History Atorvastatin [Lipitor] 10 mg PO HS tab 05/11/17 01/15/21 Rx Calcium Carbonate [Calcium] 600 mg PO DAILY@1200 08/07/18 01/15/21 History Cyanocobalamin [Vitamin B-12] 500 mcg PO DAILY 08/07/18 01/15/21 History Cranberry Fruit Extract [Cranberry] 500 mg PO DAILY 01/29/19 01/15/21 History Ferrous Sulfate [Iron (65 MG 325 mg PO BID #60 tab 02/03/19 01/15/21 Rx Elemental)] Montelukast [Singulair] 10 mg PO HS #30 tab 02/03/19 01/15/21 Rx Furosemide [Lasix] 40 mg PO DAILY 01/15/21 01/15/21 History Losartan Potassium [Cozaar] 50 mg PO DAILY 01/15/21 01/15/21 History Warfarin Sodium 3 mg PO SUTUTH 01/15/21 01/15/21 History Warfarin [Coumadin] 6 mg PO MOWEFRSA 01/15/21 01/15/21 History glipiZIDE [Glucotrol] 10 mg PO BID 01/15/21 01/15/21 History Allergies Allergy/AdvReac Type Severity Reaction Status Date / Time influenza virus vaccine qs Allergy Unknown Unknown Verified 01/15/21 16:29 2016- (36 months up) [From Fluarix Quad 0610-9443 (PF)] aspirin Allergy Unknown Verified 01/15/21 16:29 Penicillins Allergy Rash/Hives Verified 01/15/21 16:29 radish Allergy Rash/Hives Verified 01/15/21 16:29 red dye Allergy Unknown Verified 01/15/21 16:29 Physical Exam Vitals: Vital Signs Temp Pulse Pulse Pulse Resp BP BP 01/16/21 07:34 98.4 F 86 14 152/60 01/16/21 03:23 97.7 F 01/16/21 00:39 99.8 F H 68 24 01/15/21 20:00 70 20 01/15/21 19:34 98.8 F 70 20 01/15/21 17:40 100.7 F H 75 16 01/15/21 12:54 98.2 F 72 16 158/71 BP Pulse Ox 01/16/21 07:34 96 01/16/21 03:23 01/16/21 00:39 126/45 01/15/21 20:00 01/15/21 19:34 131/58 98 01/15/21 17:40 139/54 92 L 01/15/21 12:54 99 Intake and Output 01/15/21 01/16/21 01/16/21 22:59 06:59 14:59 Other: Voiding Method Diaper Diaper Incontinent # Voids 0 1 Weight 83.915 kg Head normocephalic Neck supple Lungs clear to auscultation bilaterally no wheezing or crackles Heart regular rate and rhythm S1-S2, no rub or gallop Abdomen is soft nontender nondistended positive bowel sounds no hepatosplenomegaly Extremities no edema Neuro alert and orientated to 1. Patient appears to be a poor historian Results CBC & Chem 7: 01/16/21 04:37 01/16/21 04:37 Labs: Abnormal Lab Results - Last 24 Hours (Table) 01/15/21 01/15/21 01/15/21 Range/Units 14:35 15:00 16:41 WBC 16.7 H (3.8-10.6) k/uL RBC 3.60 L (3.80-5.40) m/uL Hgb 11.0 L (11.4-16.0) gm/dL Hct 33.3 L (34.0-46.0) % MCHC (32.0-37.0) g/dL MPV (9.5-12.2) fL Immature Gran # (0.00-0.04) X 10*3/uL Neutrophils # 15.3 H (1.3-7.7) k/uL Lymphocytes # 0.6 L (1.0-4.8) k/uL Monocytes # (0.20-1.00) X 10*3/uL Eosinophils # (0.04-0.35) X 10*3/uL PT (9.0-12.0) sec INR (<1.2) Sodium (137-145) mmol/L Potassium (3.5-5.1) mmol/L Chloride (98-107) mmol/L Carbon Dioxide (22-30) mmol/L BUN (7-17) mg/dL Creatinine (0.52-1.04) mg/dL Glucose (74-99) mg/dL POC Glucose (mg/dL) 280 H (75-99) mg/dL Calcium (8.4-10.2) mg/dL Total Bilirubin (0.2-1.3) mg/dL Urine Appearance Cloudy H (Clear) Urine Protein 2+ H (Negative) Urine Ketones 1+ H (Negative) Urine Blood Trace H (Negative) Ur Leukocyte Esterase Large H (Negative) Urine RBC 14 H (0-5) /hpf Urine WBC >182 H (0-5) /hpf Urine Bacteria Rare H (None) /hpf Urine Mucus Rare H (None) /hpf Urine Yeast (Budding) Few H (None) /hpf 01/15/21 01/15/21 01/15/21 Range/Units 16:41 16:41 17:44 WBC (3.8-10.6) k/uL RBC (3.80-5.40) m/uL Hgb (11.4-16.0) gm/dL Hct (34.0-46.0) % MCHC (32.0-37.0) g/dL MPV (9.5-12.2) fL Immature Gran # (0.00-0.04) X 10*3/uL Neutrophils # (1.3-7.7) k/uL Lymphocytes # (1.0-4.8) k/uL Monocytes # (0.20-1.00) X 10*3/uL Eosinophils # (0.04-0.35) X 10*3/uL PT 19.8 H (9.0-12.0) sec INR 2.0 H (<1.2) Sodium 133 L (137-145) mmol/L Potassium 5.6 H (3.5-5.1) mmol/L Chloride 97 L (98-107) mmol/L Carbon Dioxide (22-30) mmol/L BUN 36 H (7-17) mg/dL Creatinine 1.44 H (0.52-1.04) mg/dL Glucose 269 H (74-99) mg/dL POC Glucose (mg/dL) 302 H (75-99) mg/dL Calcium 11.0 H (8.4-10.2) mg/dL Total Bilirubin 1.8 H (0.2-1.3) mg/dL Urine Appearance (Clear) Urine Protein (Negative) Urine Ketones (Negative) Urine Blood (Negative) Ur Leukocyte Esterase (Negative) Urine RBC (0-5) /hpf Urine WBC (0-5) /hpf Urine Bacteria (None) /hpf Urine Mucus (None) /hpf Urine Yeast (Budding) (None) /hpf 01/15/21 01/16/21 01/16/21 Range/Units 20:21 04:37 04:37 WBC 24.51 H (3.8-10.6) k/uL RBC 3.53 L (3.80-5.40) m/uL Hgb 10.2 L (11.4-16.0) gm/dL Hct 32.4 L (34.0-46.0) % MCHC 31.5 L (32.0-37.0) g/dL MPV 12.9 H (9.5-12.2) fL Immature Gran # 0.24 H (0.00-0.04) X 10*3/uL Neutrophils # 21.64 H (1.3-7.7) k/uL Lymphocytes # (1.0-4.8) k/uL Monocytes # 1.48 H (0.20-1.00) X 10*3/uL Eosinophils # 0 L (0.04-0.35) X 10*3/uL PT (9.0-12.0) sec INR (<1.2) Sodium 133 L (137-145) mmol/L Potassium (3.5-5.1) mmol/L Chloride 97 L (98-107) mmol/L Carbon Dioxide 20 L (22-30) mmol/L BUN 40 H (7-17) mg/dL Creatinine 1.67 H (0.52-1.04) mg/dL Glucose 314 H (74-99) mg/dL POC Glucose (mg/dL) 352 H (75-99) mg/dL Calcium 10.8 H (8.4-10.2) mg/dL Total Bilirubin (0.2-1.3) mg/dL Urine Appearance (Clear) Urine Protein (Negative) Urine Ketones (Negative) Urine Blood (Negative) Ur Leukocyte Esterase (Negative) Urine RBC (0-5) /hpf Urine WBC (0-5) /hpf Urine Bacteria (None) /hpf Urine Mucus (None) /hpf Urine Yeast (Budding) (None) /hpf 01/16/21 01/16/21 Range/Units 04:37 07:45 WBC (3.8-10.6) k/uL RBC (3.80-5.40) m/uL Hgb (11.4-16.0) gm/dL Hct (34.0-46.0) % MCHC (32.0-37.0) g/dL MPV (9.5-12.2) fL Immature Gran # (0.00-0.04) X 10*3/uL Neutrophils # (1.3-7.7) k/uL Lymphocytes # (1.0-4.8) k/uL Monocytes # (0.20-1.00) X 10*3/uL Eosinophils # (0.04-0.35) X 10*3/uL PT 22.4 H (9.0-12.0) sec INR 2.16 H (<1.2) Sodium (137-145) mmol/L Potassium (3.5-5.1) mmol/L Chloride (98-107) mmol/L Carbon Dioxide (22-30) mmol/L BUN (7-17) mg/dL Creatinine (0.52-1.04) mg/dL Glucose (74-99) mg/dL POC Glucose (mg/dL) 350 H (75-99) mg/dL Calcium (8.4-10.2) mg/dL Total Bilirubin (0.2-1.3) mg/dL Urine Appearance (Clear) Urine Protein (Negative) Urine Ketones (Negative) Urine Blood (Negative) Ur Leukocyte Esterase (Negative) Urine RBC (0-5) /hpf Urine WBC (0-5) /hpf Urine Bacteria (None) /hpf Urine Mucus (None) /hpf Urine Yeast (Budding) (None) /hpf Microbiology - Last 24 Hours (Table) 01/15/21 15:00 Urine Culture - Preliminary Urine,Clean Catch Thrombosis Risk Factor Assmnt - Choose All That Apply Each Risk Factor Represents 3 Points: Age 75 years or older Thrombosis Risk Factor Assessment Total Risk Factor Score: 3 Thrombosis Risk Factor Assessment Level: Moderate Risk Assessment and Plan Assessment: 1. Fall with knee pain. Knee pain x-ray negative for fracture. PT OT and social work services consulted for discharge planning 2. Urinary tract infection. Urine culture ordered. Patient started on Rocephin 3. Leukocytosis. WBC continue to elevate at 24.5. Hematology service is consulted. Chest x-ray urine culture and blood culture ordered 4. Altered mental status changes. Given patient's history of CVA and Coumadin use will order head CT 5. Acute kidney injury. Patient maintained on normal saline at 75 repeat labs ordered. Patient's metformin Lasix currently on hold 6. History of CVA 7. History of chronic systolic CHF. Patient's Lasix currently on hold due to acute kidney injury 8. History of atrial fibrillation. She is maintained on Coumadin 9. Essential hypertension 10. Diabetes mellitus type 2. Continue sliding scale coverage DVT prophylaxis Coumadin and SCDs. Coumadin on hold until head CT completed. GI prophylaxis Protonix Head CT ordered Chest x-ray, urine culture and blood culture ordered Hematology consulted for leukocytosis Continue normal saline at 75 Repeat labs ordered Time with Patient: Greater than 30 (Greater than 60% of the total time spent in counseling and coordination of care)
[2021-01-16 11:49] LABS: Glucose,Whole Blood 368 mg/dL (75-99)
[2021-01-16] MEDS: INSULIN ASPART (NovoLOG) 100 UNIT/ML VIAL SQ SCH ×3 (12:16→21:39)
--- NOTE | 2021-01-16 12:32 | CT ---
EXAMINATION TYPE: CT brain wo con DATE OF EXAM: 01/16/2021 COMPARISON: 05/08/2017 HISTORY: Altered mental status, UTI, Fall, Knee pain TECHNIQUE: CT scan of the head performed without contrast CT DLP: 1106 mGycm Automated exposure control for dose reduction was used. FINDINGS: Extremely limited study due to motion and streak. Evaluation for extra-axial fluid collection is extr santos limited. Low-attenuation the left frontal lobe is again seen likely related to remote infarct. Low-attenuation in the left cerebellum is also likely related to remote infarct. There is asymmetric low attenuation in the right temporal lobe could be related to artifact or perhap s acute vascular insult. Kidd-white matter differentiation is relatively maintained. There is no midline shift or obvious mass effect. There is no intraparenchymal hemorrhage. There is no large extra-axial fluid collection. The re is chronic microvascular ischemic changes and brain volume loss. No evidence for hydrocephalus or effacement of the basilar cisterns. No acute orbital abnormality. No displaced fracture. Atherosclerotic calcifications are seen in the i ntracranial internal carotid arteries. Paranasal sinuses and mastoid air cells are within normal limi t. IMPRESSION: 1. EXTREMELY LIMITED STUDY DUE TO MOTION AND STREAK, EVALUATION FOR EXTRA-AXIAL FLUID COLLECTION IS E XTREMELY LIMITED. 2. ASYMMETRIC LOW-ATTENUATION THE RIGHT TEMPORAL LOBE MAY BE RELATED TO ARTIFACT THOUGH ACUTE VASCULA R ISCHEMIC INSULT CANNOT BE ENTIRELY EXCLUDED. CORRELATE WITH PATIENT'S SYMPTOMS, FOR REPEAT CT OR CT ANGIOGRAM OF THE HEAD SHOULD BE DETERMINED ON CLINICAL BASIS. 3. REMOTE INFARCTS IN THE LEFT FRONTAL LOBE AND LEFT CEREBELLUM.
[2021-01-16] MEDS: SODIUM CHLORIDE 0.9% 1,000 ML IV SCH (14:27)
--- NOTE | 2021-01-16 14:44 | XR ---
EXAMINATION TYPE: XR chest 2V DATE OF EXAM: 01/16/2021 COMPARISON: 01/29/2019 HISTORY: Leukocytosis TECHNIQUE: 2 views FINDINGS: There is increased pulmonary interstitial density throughout the lungs. Heart is borderline enlarged. There is left axillary pacemaker. Bony thorax is intact. There is no definite pleural effu gage. IMPRESSION: Pulmonary increased interstitial density without consolidation. There is clearing of the congestive heart failure and pleural fluid compared to old exam.
--- NOTE | 2021-01-16 16:05 | CT ---
EXAMINATION TYPE: CT knee RT wo con DATE OF EXAM: 01/16/2021 COMPARISON: None HISTORY: pain CT DLP: 599.4 mGycm Automated exposure control for dose reduction was used. Images obtained from the mid femur to the mid tibia without contrast. There is right knee prosthesis. Components appear in anatomic position. Exam limited somewhat by the metal artifact. I see no fracture line. There is no evidence of a soft tissue mass. There is small kn ee joint effusion. There is atherosclerotic vascular calcification. IMPRESSION: No fracture seen. Small knee joint effusion.
[2021-01-16 16:13] LABS: Glucose,Whole Blood 225 mg/dL (75-99)
[2021-01-16 18:08] LABS: Glucose,Whole Blood 243 mg/dL (75-99)
[2021-01-16] MEDS: MONTELUKAST 10 MG TAB PO SCH (19:47)
[2021-01-16] MEDS: ATORVASTATIN 10 MG TAB PO SCH (19:47)
[2021-01-16 20:22] LABS: Glucose,Whole Blood 206 mg/dL (75-99)
--- NOTE | 2021-01-16 23:51 | P.CONS ---
History of Present Illness - Reason for Consult Consult date: 01/16/21 sepsis Requesting physician: Tori Barney - Chief Complaint fall and weakenss x 1 day - History of Present Illness History of present illness : Patient is 80-year female was brought into the ER yesterday afternoon for evaluation of fall apparently the patient did have a fall earlier in the day yesterday and was complaining of pain to the right knee area there is no history of any head injury or loss of consciousness on presentation to the hospital patient did have a low-grade fever 100.7 degree form height she is currently satting 96% on room air patient did have a white count 16 point 7 repeat is up to 24.51 BUN and creatinine are mildly elevated enzymes are normal urine is positive with large leukocyte esterase more than 182 WBC urine showing gram-negative blood cultures with the gram-positive bacilli infectious disease was consulted for further management patient herself evaluated good historian he is slightly sleepy lethargic but not specifically denies any symptoms no history of any symptom prior to this fall and no history of any congestion or cough no nausea no vomiting no abdominal pain or any diarrhea patient did have a chest x-ray increased interstitial density without consolidation x-ray of the knee as well as the CT shows a small effusion but no globe normality patient is currently being treated with Rocephin and most information has been obtained from review of chart and talking to the daughter Review of system: Positive point has been mentioned in HPI complete review could not be obtained because of underlying mental status. Past medical history : Reviewed, documented below Past surgical history : Reviewed, documented below Social history: Reviewed, documented below Medications: Reviewed, as documented below EXAMINATION: Vital sigans= Reviewed and documented below GENERAL DESCRIPTION: Elderly female lying in bed, no distress. No tachypnea or accessory muscle of respiration use. HEENT: Shows Pallor , no scleral icterus. Oral mucous membrane is dry. NECK: Trachea central, no thyromegaly. LUNGS: Unlabored breathing. Clear to auscultation anteriorly. No wheeze or crackle. HEART: S1, S2, regular rate and rhythm. ABDOMEN: Soft, no tenderness , guarding or rigidity EXTREMITIES: No edema of feet. SKIN: No rash, no masses palpable. NEUROLOGICAL: The patient is lethargic orientation could not be determined LABS AND RADIOLOGY: Reviewed results see below Assessment : 1-Patient presented to hospital with sepsis in this patient who did have a fall however on presented to the hospital did have a fever elevated white count source possible urinary and need to cover for enteric gram-negative to the likely pathogen, underlying abdominal source entirely excluded 2-positive blood culture with gram-positive bacilli more likely skin contaminant Plan: 1-blood cultures will be repeated to document clearance of bacteremia 2-obtain ultrasound of the abdominal 3-adjust Rocephin to 2 g daily and gentle IV fluid We will follow on clinical condition and cultures to further adjust medication if needed Thank you for this consultation we will follow the patient along with you Past Medical History Past Medical History: Atrial Fibrillation, CVA/TIA, Hypertension Additional Past Medical History / Comment(s): Stroke x 2- PACEMAKER History of Any Multi-Drug Resistant Organisms: None Reported Past Surgical History: Appendectomy, Cholecystectomy, Orthopedic Surgery, Tonsillectomy Additional Past Surgical History / Comment(s): pt. states shes had two knee surgeries Past Anesthesia/Blood Transfusion Reactions: No Reported Reaction Additional Psychological History / Comment(s): . Smoking Status: Never smoker Past Alcohol Use History: None Reported Past Drug Use History: None Reported - Past Family History Son(s) Family Medical History: Myocardial Infarction ([place]) Medications and Allergies Home Medications Medication Instructions Recorded Confirmed Type Carvedilol [Coreg] 25 mg PO BID 05/08/17 01/15/21 History Cholecalciferol [Vitamin D3 (25 5,000 unit PO DAILY 05/08/17 01/15/21 History Mcg = 1000 Iu)] Magnesium Oxide [Mag-Ox] 250 mg PO DAILY 05/08/17 01/15/21 History Vitamin E (Dl,Tocopheryl Acet) 400 unit PO DAILY@1200 05/08/17 01/15/21 History [Vitamin E (400 Iu = 180 mg)] metFORMIN HCL [Glucophage] 500 mg PO TID 05/08/17 01/15/21 History Atorvastatin [Lipitor] 10 mg PO HS tab 05/11/17 01/15/21 Rx Calcium Carbonate [Calcium] 600 mg PO DAILY@1200 08/07/18 01/15/21 History Cyanocobalamin [Vitamin B-12] 500 mcg PO DAILY 08/07/18 01/15/21 History Cranberry Fruit Extract [Cranberry] 500 mg PO DAILY 01/29/19 01/15/21 History Ferrous Sulfate [Iron (65 MG 325 mg PO BID #60 tab 02/03/19 01/15/21 Rx Elemental)] Montelukast [Singulair] 10 mg PO HS #30 tab 02/03/19 01/15/21 Rx Furosemide [Lasix] 40 mg PO DAILY 01/15/21 01/15/21 History Losartan Potassium [Cozaar] 50 mg PO DAILY 01/15/21 01/15/21 History Warfarin Sodium 3 mg PO SUTUTH 01/15/21 01/15/21 History Warfarin [Coumadin] 6 mg PO MOWEFRSA 01/15/21 01/15/21 History glipiZIDE [Glucotrol] 10 mg PO BID 01/15/21 01/15/21 History Allergies Allergy/AdvReac Type Severity Reaction Status Date / Time influenza virus vaccine qs Allergy Unknown Unknown Verified 01/15/21 16:29 2016- (36 months up) [From Fluarix Quad 4038-2193 (PF)] aspirin Allergy Unknown Verified 01/15/21 16:29 Penicillins Allergy Rash/Hives Verified 01/15/21 16:29 radish Allergy Rash/Hives Verified 01/15/21 16:29 red dye Allergy Unknown Verified 01/15/21 16:29 Physical Exam Vitals: Vital Signs Temp Pulse Resp BP BP Pulse Ox 01/16/21 14:49 98.3 F 70 16 124/59 100 01/16/21 07:34 98.4 F 86 14 152/60 96 01/16/21 03:23 97.7 F 01/16/21 00:39 99.8 F H 68 24 126/45 01/15/21 20:00 70 20 01/15/21 19:34 98.8 F 70 20 131/58 98 Intake and Output 01/16/21 01/16/21 01/16/21 06:59 14:59 22:59 Intake Total 120 Output Total 200 Balance -80 Intake: Oral 120 Output: Urine 200 Other: Voiding Method Indwelling Catheter # Voids 1 Results CBC & Chem 7: 01/16/21 04:37 01/16/21 04:37 Labs: Abnormal Lab Results - Last 24 Hours (Table) 01/15/21 01/16/21 01/16/21 Range/Units 20:21 04:37 04:37 WBC 24.51 H (4.50-10.00) X 10*3/uL RBC 3.53 L (4.10-5.20) X 10*6/uL Hgb 10.2 L (12.0-15.0) g/dL Hct 32.4 L (37.2-46.3) % MCHC 31.5 L (32.0-37.0) g/dL MPV 12.9 H (9.5-12.2) fL Immature Gran # 0.24 H (0.00-0.04) X 10*3/uL Neutrophils # 21.64 H (1.80-7.70) X 10*3/uL Monocytes # 1.48 H (0.20-1.00) X 10*3/uL Eosinophils # 0 L (0.04-0.35) X 10*3/uL PT (9.9-11.9) sec INR (0.90-1.11) Sodium 133 L (137-145) mmol/L Chloride 97 L (98-107) mmol/L Carbon Dioxide 20 L (22-30) mmol/L BUN 40 H (7-17) mg/dL Creatinine 1.67 H (0.52-1.04) mg/dL Glucose 314 H (74-99) mg/dL POC Glucose (mg/dL) 352 H (75-99) mg/dL Calcium 10.8 H (8.4-10.2) mg/dL 01/16/21 01/16/21 01/16/21 Range/Units 04:37 07:45 11:39 WBC (4.50-10.00) X 10*3/uL RBC (4.10-5.20) X 10*6/uL Hgb (12.0-15.0) g/dL Hct (37.2-46.3) % MCHC (32.0-37.0) g/dL MPV (9.5-12.2) fL Immature Gran # (0.00-0.04) X 10*3/uL Neutrophils # (1.80-7.70) X 10*3/uL Monocytes # (0.20-1.00) X 10*3/uL Eosinophils # (0.04-0.35) X 10*3/uL PT 22.4 H (9.9-11.9) sec INR 2.16 H (0.90-1.11) Sodium (137-145) mmol/L Chloride (98-107) mmol/L Carbon Dioxide (22-30) mmol/L BUN (7-17) mg/dL Creatinine (0.52-1.04) mg/dL Glucose (74-99) mg/dL POC Glucose (mg/dL) 350 H 368 H (75-99) mg/dL Calcium (8.4-10.2) mg/dL 01/16/21 01/16/21 Range/Units 15:59 18:06 WBC (4.50-10.00) X 10*3/uL RBC (4.10-5.20) X 10*6/uL Hgb (12.0-15.0) g/dL Hct (37.2-46.3) % MCHC (32.0-37.0) g/dL MPV (9.5-12.2) fL Immature Gran # (0.00-0.04) X 10*3/uL Neutrophils # (1.80-7.70) X 10*3/uL Monocytes # (0.20-1.00) X 10*3/uL Eosinophils # (0.04-0.35) X 10*3/uL PT (9.9-11.9) sec INR (0.90-1.11) Sodium (137-145) mmol/L Chloride (98-107) mmol/L Carbon Dioxide (22-30) mmol/L BUN (7-17) mg/dL Creatinine (0.52-1.04) mg/dL Glucose (74-99) mg/dL POC Glucose (mg/dL) 225 H 243 H (75-99) mg/dL Calcium (8.4-10.2) mg/dL Microbiology - Last 24 Hours (Table) 01/16/21 14:39 Blood Culture Gram Stain - Preliminary Blood 01/15/21 16:41 Blood Culture - Final Blood 01/15/21 15:00 Urine Culture - Preliminary Urine,Clean Catch
[2021-01-17] MEDS: SODIUM CHLORIDE 0.9% 1,000 ML IV SCH ×2 (03:48→19:06)
[2021-01-17 05:13] LABS: INR 1.9 (<1.2); Prothrombin Time 18.9 sec (9.0-12.0)
[2021-01-17 05:30] LABS: Basophils % (A) 0 %; Eosinophils # (A) 0.1 k/uL (0-0.7); Eosinophils % (A) 1 %; HCT 34.3 % (34.0-46.0); HGB 11.3 gm/dL (11.4-16.0); Lymphocytes # (A) 0.8 k/uL (1.0-4.8); Lymphocytes % (A) 4 %; MCH 30.1 pg (25.0-35.0); MCHC 32.8 g/dL (31.0-37.0); MCV 91.7 fL (80.0-100.0); Mean Platelet Volume 10.9; Monocytes # (A) 0.7 k/uL (0-1.0); Monocytes % (A) 4 %; Neutrophils # (A) 18.5 k/uL (1.3-7.7); Neutrophils % (A) 91 %; Platelet Count 140 k/uL (150-450); RBC 3.74 m/uL (3.80-5.40); RDW 13.6 % (11.5-15.5); WBC 20.3 k/uL (3.8-10.6)
[2021-01-17 07:23] LABS: Glucose,Whole Blood 254 mg/dL (75-99)
[2021-01-17] MEDS: MAGNESIUM OXIDE 400 MG TAB PO SCH (08:17)
[2021-01-17] MEDS: glipiZIDE 10 MG TAB PO SCH ×2 (08:17→20:57)
[2021-01-17] MEDS: CYANOCOBALAMIN 500 MCG TAB PO SCH (08:18)
[2021-01-17] MEDS: LOSARTAN 50 MG TAB PO SCH (08:18)
[2021-01-17] MEDS: CHOLECALCIFEROL 25 MCG (1000 IU) TABLET PO SCH (08:18)
[2021-01-17] MEDS: PANTOPRAZOLE 40 MG TABLET PO SCH (08:18)
[2021-01-17] MEDS: carvediloL 12.5 MG TAB PO SCH ×2 (08:18→17:48)
[2021-01-17] MEDS: FERROUS SULFATE 325 MG TAB PO SCH ×2 (08:18→20:55)
[2021-01-17] MEDS: ENOXAPARIN 30 MG/0.3 ML SYRINGE SQ SCH (08:19)
[2021-01-17] MEDS: INSULIN ASPART (NovoLOG) 100 UNIT/ML VIAL SQ SCH ×4 (08:19→20:57)
--- NOTE | 2021-01-17 08:32 | US ---
EXAMINATION TYPE: US abdomen complete DATE OF EXAM: 01/17/2021 COMPARISON: NONE CLINICAL HISTORY: Fever. Patient disoriented - poor historian Exam done portable. EXAM MEASUREMENTS: Liver Length: 16.3 cm CBD: 0.5 cm Spleen: n/a cm Right Kidney: 10.3 x 4.3 x 5.4 cm Left Kidney: 9.9 x 4.5 x 5.0 cm Pancreas: visualized portions wnl, body and tail partially obscured by overlying midline bowel gas Liver: scanned intercostally, limited visualization, visualized portions appear wnl Gallbladder: surgically absent Evidence for sonographic Nguyen's sign: no CBD: wnl Spleen: obscured by overlying bowel gas Right Kidney: wnl Left Kidney: limited visualization due to rib shadowing and overlying bowel gas, multiple echogenic foci seen within mid and inferior pole Upper IVC: wnl Abd Aorta: prox and mid portions appear wnl, distal portion obscured by overlying midline bowel gas IMPRESSION: 1. Limited examination due to bowel gas. 2. No suspicious ultrasound abnormality as visualized.
[2021-01-17] MEDS: ACETAMINOPHEN TAB 500 MG TAB PO PRN ×2 (10:35→20:57)
[2021-01-17 12:14] LABS: Glucose,Whole Blood 215 mg/dL (75-99)
--- NOTE | 2021-01-17 13:06 | P.PN ---
Subjective Progress Note Date: 01/17/21 This is a 80-year-old female patient who presented to the ER with concerns of fall with right knee pain. Per ER report patient denies hitting her head. Patient is also confused no family currently at bedside but per nursing staff patient is normally alert and oriented 3 . Patient has a past medical history of atrial fibrillation in which he is on Coumadin CVA and hypertension. X-ray of knee completed showing intact arthroplasty hardware generalized osteopenia no acute fracture dislocation seen. Trace joint effusion vascular calcium medications noted increased compared to prior. Urinary analysis positive for UTI. Patient has been started on Rocephin. White blood cell increasing to 24.51 despite antibiotic. Will consult oncology services in order chest x-ray blood culture and urine culture. Also concerns in regards altered mental status changes will order head CT given patient's history of CVA and on Coumadin. INR is currently therapeutic. Creatinine elevated at 1.67 and bun 40. Will increase fluids to 75. At this time patient is complaining of generalized pain unable to specify. Patient denies chest pain. Patient does deny shortness of breath. Patient denies any nausea vomiting or diarrhea. On 01/17/2021 Patient was seen and examined on the medical floor, he is alert and oriented x 3 in no distress, he denies any complaints there is no fever or chills no headache or dizziness no chest pain no shortness of breath no palpitation no cough no nausea or vomiting no abdominal pain no diarrhea no blood in the stools no burning with urination no frequency or urgency and no hematuria, there is no weakness or numbness in any of the extremities no change in vision speech or gait. Patient is more alert today continue with current medications will follow in a.m. Objective - Vital Signs Vital signs: Vital Signs Temp 98.9 F 01/17/21 07:00 Pulse 70 01/17/21 07:00 Resp 18 01/17/21 07:00 BP 114/73 01/17/21 07:00 Pulse Ox 96 01/17/21 07:00 Intake & Output 01/16/21 01/17/21 01/17/21 18:59 06:59 18:59 Intake Total 120 Output Total 200 300 Balance -80 -300 Intake: Oral 120 Output: Urine 200 300 Other: Voiding Method Indwelling Catheter Indwelling Catheter - Exam Head normocephalic Neck supple Lungs clear to auscultation bilaterally no wheezing or crackles Heart regular rate and rhythm S1-S2, no rub or gallop Abdomen is soft nontender nondistended positive bowel sounds no hepatosplenomegaly Extremities no edema Neuro alert and orientated to 1. Patient appears to be a poor historian - Labs CBC & Chem 7: 01/17/21 04:25 01/16/21 04:37 Labs: Abnormal Lab Results - Last 24 Hours (Table) 01/16/21 01/16/21 01/16/21 Range/Units 04:37 04:37 11:39 WBC 24.51 H (4.50-10.00) X 10*3/uL RBC 3.53 L (4.10-5.20) X 10*6/uL Hgb 10.2 L (12.0-15.0) g/dL Hct 32.4 L (37.2-46.3) % MCHC 31.5 L (32.0-37.0) g/dL Plt Count (150-450) k/uL MPV 12.9 H (9.5-12.2) fL Immature Gran # 0.24 H (0.00-0.04) X 10*3/uL Neutrophils # 21.64 H (1.80-7.70) X 10*3/uL Lymphocytes # (1.0-4.8) k/uL Monocytes # 1.48 H (0.20-1.00) X 10*3/uL Eosinophils # 0 L (0.04-0.35) X 10*3/uL PT 22.4 H (9.9-11.9) sec INR 2.16 H (0.90-1.11) POC Glucose (mg/dL) 368 H (75-99) mg/dL 01/16/21 01/16/21 01/16/21 Range/Units 15:59 18:06 20:20 WBC (4.50-10.00) X 10*3/uL RBC (4.10-5.20) X 10*6/uL Hgb (12.0-15.0) g/dL Hct (37.2-46.3) % MCHC (32.0-37.0) g/dL Plt Count (150-450) k/uL MPV (9.5-12.2) fL Immature Gran # (0.00-0.04) X 10*3/uL Neutrophils # (1.80-7.70) X 10*3/uL Lymphocytes # (1.0-4.8) k/uL Monocytes # (0.20-1.00) X 10*3/uL Eosinophils # (0.04-0.35) X 10*3/uL PT (9.9-11.9) sec INR (0.90-1.11) POC Glucose (mg/dL) 225 H 243 H 206 H (75-99) mg/dL 01/17/21 01/17/21 01/17/21 Range/Units 04:25 04:25 07:22 WBC 20.3 H (4.50-10.00) X 10*3/uL RBC 3.74 L (4.10-5.20) X 10*6/uL Hgb 11.3 L (12.0-15.0) g/dL Hct (37.2-46.3) % MCHC (32.0-37.0) g/dL Plt Count 140 L (150-450) k/uL MPV (9.5-12.2) fL Immature Gran # (0.00-0.04) X 10*3/uL Neutrophils # 18.5 H (1.80-7.70) X 10*3/uL Lymphocytes # 0.8 L (1.0-4.8) k/uL Monocytes # (0.20-1.00) X 10*3/uL Eosinophils # (0.04-0.35) X 10*3/uL PT 18.9 H (9.9-11.9) sec INR 1.9 H (0.90-1.11) POC Glucose (mg/dL) 254 H (75-99) mg/dL Microbiology - Last 24 Hours (Table) 01/15/21 15:00 Urine Culture - Preliminary Urine,Clean Catch Gram Neg Bacilli 01/16/21 14:39 Blood Culture Gram Stain - Preliminary Blood 01/15/21 16:41 Blood Culture - Final Blood Assessment and Plan Assessment: 1. Fall with knee pain. Knee pain x-ray negative for fracture. PT OT and social work services consulted for discharge planning 2. Urinary tract infection. Urine culture ordered. Patient started on Roceph in 3. Leukocytosis. WBC continue to elevate at 24.5. Hematology service is consulted. Chest x-ray urine culture and blood culture ordered 4. Altered mental status changes. Given patient's history of CVA and Coumadin use will order head CT 5. Acute kidney injury. Patient maintained on normal saline at 75 repeat labs ordered. Patient's metformin Lasix currently on hold 6. History of CVA 7. History of chronic systolic CHF. Patient's Lasix currently on hold due to acute kidney injury 8. History of atrial fibrillation. She is maintained on Coumadin 9. Essential hypertension 10. Diabetes mellitus type 2. Continue sliding scale coverage DVT prophylaxis Coumadin and SCDs. Coumadin on hold until head CT completed. GI prophylaxis Protonix Head CT ordered Chest x-ray, urine culture and blood culture ordered Hematology consulted for leukocytosis Continue normal saline at 75 Repeat labs ordered
[2021-01-17] MEDS: CALCIUM CARBONATE 500 MG CHEWABLE PO SCH (13:16)
[2021-01-17] MEDS: VITAMIN E (DL,TOCOPHERYL ACET) 400 UNIT (180 MG) CAP PO SCH (13:16)
--- NOTE | 2021-01-17 14:09 | P.CNNES ---
History of Present Illness Consult date: 01/17/21 Requesting physician: Tori Barney Reason for Consult: brain CT results, falls, AMS History of Present Illness: Patient is a 80-year-old female with history of previous strokes related to atrial fibrillation, on Coumadin, came to the hospital by ambulance on 01/15/2021 at 12:32 PM, after she suffered from a fall without loss of consciousness. Patient's daughter was present at this time. She states that her brother was present when patient fell down. Patient was coming back from the bathroom to the living room, when she just went down, hitting her right knee on the floor. Patient did not lose consciousness, did not pass out, did not hit her head. Patient states that she just felt weak, as if "nothing there" and she fell down. Patient's son has mentioned that she looked "funny" when she was going to the bathroom as well. After she got off the toilet, coming back fell down as mentioned above. The last time she had a similar fall was many years ago, when she was also diagnosed with UTI at that time. Otherwise she does not fall. EMS flow sheet not available in the chart. Patient's vital signs on arrival blood pressure 158/71, pulse is 72, temperature 98.2. CT head showed extremely limited study due to motion and streak, evaluation for extra-axial fluid collection is extremely limited. Asymmetric low attenuation in the right temporal lobe may be related to artifact though acute vascular ischemic insult cannot be entirely excluded. Correlate with patient's symptoms, for repeat CT or CT angiogram of the head should be determined on clinical basis. Remote infarcts in the left frontal lobe and left cerebellum. Chest x-ray showed pulmonary increased interstitial density without consolidation. These clearing of the congestive heart failure and poor foot compared to old exam. Computed tomography scan of the knee showed no fracture. Small knee joint effusion. Patient's blood test shows WBC 16.7, which went up to 24.51, hemoglobin 10.2, platelets 201. INR 2.16. Sodium 133 potassium 4.7, BUN on admission was 36 and creatinine 1.44. Now it is 40 and 1.67 respectively as of yesterday. Patient's last hemoglobin A1c 6.5 on 07/01/2019. Hepatic panel is normal. UA shows large amount of leukocyte esterase, more than 182 WBCs rare bacteria. Urine cultures have grown 10,000 to 49,000 CFU per mL. Patient's blood culture shows gram-positive bacilli. Blood cultures Gram stain shows gram-negative bacilli. Patient's 2-D echo from 09/30/2020 showed normal left ventricular size, mild concentric LVH, EF is low normal between 50-55%, right ventricle is mildly enlarged. Left atrium was severely dilated. Moderate aortic valve sclerosis. Mild aortic regurgitation. Mild to moderate MR. Patient's home medications include vitamin E, vitamin D 1000 units daily, metformin, carvedilol, Lipitor 10 mg, B12 500 g daily, Singulair, ferrous sulfate, Coumadin, losartan, glipizide, Lasix. 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 She had couple strokes. Patient's daughter reports that she was yesterday "out of it". Today she is still confused but much better. She was telling nurses that she has only one son although she has 2 daughters as well. Review of Systems Patient denies any chest pain, shortness of breath, wheezing or cough. No fever or chills. No wall limiting, no nausea, no abdominal pain. No dysuria. She does have some urgency of urination, and sometimes speaks. Denies any double vision or loss of vision. Patient denies any strokelike symptoms at this time. Patient had couple strokes in the past, with no residual deficits. Patient still is confused mentally. Patient has arthritis. Patient has right knee pain. Denies any anxiety depression. No significant memory disturbance at baseline. No rash. All other review of systems unremarkable. Past Medical History Past Medical History: Atrial Fibrillation, CVA/TIA, Hypertension Additional Past Medical History / Comment(s): Stroke x 2- PACEMAKER History of Any Multi-Drug Resistant Organisms: None Reported Past Surgical History: Appendectomy, Cholecystectomy, Orthopedic Surgery, Tonsillectomy Additional Past Surgical History / Comment(s): pt. states shes had two knee surgeries Past Anesthesia/Blood Transfusion Reactions: No Reported Reaction Additional Psychological History / Comment(s): . Smoking Status: Never smoker Past Alcohol Use History: None Reported Past Drug Use History: None Reported - Past Family History Son(s) Family Medical History: Myocardial Infarction ([place]) Medications and Allergies Home Medications Medication Instructions Recorded Confirmed Type Carvedilol [Coreg] 25 mg PO BID 12/26/17 09/04/21 History Cholecalciferol [Vitamin D3 (25 5,000 unit PO DAILY 05/08/17 01/15/21 History Mcg = 1000 Iu)] Magnesium Oxide [Mag-Ox] 250 mg PO DAILY 05/08/17 01/15/21 History Vitamin E (Dl,Tocopheryl Acet) 400 unit PO DAILY@1200 05/08/17 01/15/21 History [Vitamin E (400 Iu = 180 mg)] metFORMIN HCL [Glucophage] 500 mg PO TID 05/08/17 01/15/21 History Atorvastatin [Lipitor] 10 mg PO HS tab 05/11/17 01/15/21 Rx Calcium Carbonate [Calcium] 600 mg PO DAILY@1200 08/07/18 01/15/21 History Cyanocobalamin [Vitamin B-12] 500 mcg PO DAILY 08/07/18 01/15/21 History Cranberry Fruit Extract [Cranberry] 500 mg PO DAILY 01/29/19 01/15/21 History Ferrous Sulfate [Iron (65 MG 325 mg PO BID #60 tab 02/03/19 01/15/21 Rx Elemental)] Montelukast [Singulair] 10 mg PO HS #30 tab 02/03/19 01/15/21 Rx Furosemide [Lasix] 40 mg PO DAILY 01/15/21 01/15/21 History Losartan Potassium [Cozaar] 50 mg PO DAILY 01/15/21 01/15/21 History Warfarin Sodium 3 mg PO SUTUTH 01/15/21 01/15/21 History Warfarin [Coumadin] 6 mg PO MOWEFRSA 01/15/21 01/15/21 History glipiZIDE [Glucotrol] 10 mg PO BID 01/15/21 01/15/21 History Allergies Allergy/AdvReac Type Severity Reaction Status Date / Time influenza virus vaccine qs Allergy Unknown Unknown Verified 01/15/21 16:29 2016- (36 months up) [From Fluarix Quad 3720-9181 (PF)] aspirin Allergy Unknown Verified 01/15/21 16:29 Penicillins Allergy Rash/Hives Verified 01/15/21 16:29 radish Allergy Rash/Hives Verified 01/15/21 16:29 red dye Allergy Unknown Verified 01/15/21 16:29 Physical Examination - Vital Signs Vital Signs: Vital Signs Temp Pulse Resp BP Pulse Ox 01/17/21 07:00 98.9 F 70 18 114/73 96 01/17/21 02:00 97.8 F 69 15 113/66 95 01/16/21 20:00 98.2 F 65 16 93/57 96 01/16/21 14:49 98.3 F 70 16 124/59 100 Intake and Output 01/16/21 01/17/21 01/17/21 22:59 06:59 14:59 Output Total 100 200 Balance -100 -200 Output: Urine 100 200 Other: Voiding Method Indwelling Catheter Indwelling Catheter Indwelling Catheter Patient is an elderly female, very pleasant, in no acute distress. Patient has slow mentation, but sometimes prolonged latency time to answer questions. Patient is alert and awake, not very well oriented oriented. Patient could not tell the current month or the year although at baseline she does know those. She knows she is in the hospital but could not tell the name. She states that she is lives in [facility] which is correct. She thinks she lives in [facility]. She knows name of her daughter and her age 80 years. When I asked about name of the president, states "it's funny name". She was able to name Mr. Ley with prompt. Speech and language functions are normal. Patient can name most of the objects like knuckles, collar, although was able to name "ear" but not the lobe. Patient and repeat very well. Her comprehension is otherwise intact. Patient pointed the middle finger, when she was asked to show her left index finger. Attention, concentration and fund of knowledge is limited. On cranial examination, pupils are round and reacting to light, visual galvan are full on confrontation, with no neglect on double simultaneous stimulation, extraocular muscles are intact with no nystagmus. Face is symmetric, tongue protrudes to the midline. Palatal elevation and sensation normal, hearing is slightly decreased and shoulder shrug normal, facial sensation normal. Shoulder shrug normal. On muscle strength testing, there is mild right pronator drift. Patient has myoclonic jerks of outstretched hands. Her muscle strength is normal in arms and legs distally and proximally. Right information technology teacher was slightly weak because of pain in the IV site. Deep tendon reflexes are 2 in the upper limbs at biceps and brachioradialis bilaterally. In the lower limbs, right knee was not checked because of pain, absent left knee, and has trace ankles bilaterally and plantars are withdrawal. Patient has hammertoes bilaterally. Sensory to touch is equal with no neglect on double simultaneous stimulation. Cerebellar function showed no ataxia for [id number] testing. No dysdiadochokinesia. Tone and bulk of muscles normal. Gait not checked. On general examination, there is no carotid bruit or murmur, S1-S2 audible. Abdomen is soft nontender. Chest is clear. Peripheral pulses are present. No edema. Results - Laboratory Findings CBC and BMP: 01/17/21 04:25 01/16/21 04:37 Abnormal Lab Findings: Abnormal Labs 01/15/21 01/15/21 01/15/21 14:35 15:00 16:41 WBC 16.7 H RBC 3.60 L Hgb 11.0 L Hct 33.3 L MCHC Plt Count MPV Immature Gran # Neutrophils # 15.3 H Lymphocytes # 0.6 L Monocytes # Eosinophils # PT INR Sodium Potassium Chloride Carbon Dioxide BUN Creatinine Glucose POC Glucose (mg/dL) 280 H Calcium Total Bilirubin Urine Appearance Cloudy H Urine Protein 2+ H Urine Ketones 1+ H Urine Blood Trace H Ur Leukocyte Esterase Large H Urine RBC 14 H Urine WBC >182 H Urine Bacteria Rare H Urine Mucus Rare H Urine Yeast (Budding) Few H 01/15/21 01/15/21 01/15/21 16:41 16:41 17:44 WBC RBC Hgb Hct MCHC Plt Count MPV Immature Gran # Neutrophils # Lymphocytes # Monocytes # Eosinophils # PT 19.8 H INR 2.0 H Sodium 133 L Potassium 5.6 H Chloride 97 L Carbon Dioxide BUN 36 H Creatinine 1.44 H Glucose 269 H POC Glucose (mg/dL) 302 H Calcium 11.0 H Total Bilirubin 1.8 H Urine Appearance Urine Protein Urine Ketones Urine Blood Ur Leukocyte Esterase Urine RBC Urine WBC Urine Bacteria Urine Mucus Urine Yeast (Budding) 01/15/21 01/16/21 01/16/21 20:21 04:37 04:37 WBC 24.51 H RBC 3.53 L Hgb 10.2 L Hct 32.4 L MCHC 31.5 L Plt Count MPV 12.9 H Immature Gran # 0.24 H Neutrophils # 21.64 H Lymphocytes # Monocytes # 1.48 H Eosinophils # 0 L PT INR Sodium 133 L Potassium Chloride 97 L Carbon Dioxide 20 L BUN 40 H Creatinine 1.67 H Glucose 314 H POC Glucose (mg/dL) 352 H Calcium 10.8 H Total Bilirubin Urine Appearance Urine Protein Urine Ketones Urine Blood Ur Leukocyte Esterase Urine RBC Urine WBC Urine Bacteria Urine Mucus Urine Yeast (Budding) 01/16/21 01/16/21 01/16/21 04:37 07:45 11:39 WBC RBC Hgb Hct MCHC Plt Count MPV Immature Gran # Neutrophils # Lymphocytes # Monocytes # Eosinophils # PT 22.4 H INR 2.16 H Sodium Potassium Chloride Carbon Dioxide BUN Creatinine Glucose POC Glucose (mg/dL) 350 H 368 H Calcium Total Bilirubin Urine Appearance Urine Protein Urine Ketones Urine Blood Ur Leukocyte Esterase Urine RBC Urine WBC Urine Bacteria Urine Mucus Urine Yeast (Budding) 01/16/21 01/16/21 01/16/21 15:59 18:06 20:20 WBC RBC Hgb Hct MCHC Plt Count MPV Immature Gran # Neutrophils # Lymphocytes # Monocytes # Eosinophils # PT INR Sodium Potassium Chloride Carbon Dioxide BUN Creatinine Glucose POC Glucose (mg/dL) 225 H 243 H 206 H Calcium Total Bilirubin Urine Appearance Urine Protein Urine Ketones Urine Blood Ur Leukocyte Esterase Urine RBC Urine WBC Urine Bacteria Urine Mucus Urine Yeast (Budding) 01/17/21 01/17/21 01/17/21 04:25 04:25 07:22 WBC 20.3 H RBC 3.74 L Hgb 11.3 L Hct MCHC Plt Count 140 L MPV Immature Gran # Neutrophils # 18.5 H Lymphocytes # 0.8 L Monocytes # Eosinophils # PT 18.9 H INR 1.9 H Sodium Potassium Chloride Carbon Dioxide BUN Creatinine Glucose POC Glucose (mg/dL) 254 H Calcium Total Bilirubin Urine Appearance Urine Protein Urine Ketones Urine Blood Ur Leukocyte Esterase Urine RBC Urine WBC Urine Bacteria Urine Mucus Urine Yeast (Budding) Assessment and Plan Assessment: * Altered mental status, likely due to metabolic encephalopathy related to acute UTI. Blood cultures positive for Klebsiella oxytoca. * Status post fall, likely due to generalized weakness from above. * Right knee pain due to fall. No evidence of fracture on computed tomography scan. * History of atrial fibrillation, on long-term anticoagulation with warfarin. INR was therapeutic. * History of strokes in the past. * Hypertension * Pacemaker * Diabetes, last A1c 6.5 on 07/01/2019. Plan: * Patient has acute UTI with mild metabolic encephalopathy. Patient already been started on ceftriaxone 1 g every 12 hours. * No evidence of an acute stroke based upon clinical examination and computed tomography scan findings. Continue warfarin, keep INR between 2.0-3.0. I nformed the nurse. * Carotid Doppler to rule out carotid stenosis. * PT and OT. * Check B12, folate. * Continue Lipitor. * We will follow clinically.
--- NOTE | 2021-01-17 14:59 | US ---
EXAMINATION TYPE: US carotid duplex BILAT DATE OF EXAM: 01/17/2021 COMPARISON: NONE CLINICAL HISTORY: Fall, rule out syncope, history of CVA. Exam done portable. EXAM MEASUREMENTS: RIGHT: Peak Systolic Velocity (PSV) cm/sec ----- Right CCA: 62.7 ----- Right ICA: 64.7 ----- Right ECA: 95.5 ICA/CCA ratio: 1.0 RIGHT: End Diastole cm/sec ----- Right CCA: 4.6 ----- Right ICA: 12.6 ----- Right ECA: 0.0 LEFT: Peak Systolic Velocity (PSV) cm/sec ----- Left CCA: 81.5 ----- Left ICA: 91.3 ----- Left ECA: 115.0 ICA/CCA ratio: 1.1 LEFT: End Diastole cm/sec ----- Left CCA: 0.0 ----- Left ICA: 15.3 ----- Left ECA: 0.0 VERTEBRALS (direction of flow): Right Vertebral: Antegrade Left Vertebral: Antegrade Rhythm: Normal No significant stenosis IMPRESSION: No significant stenosis bilaterally. NASCET criteria was used in interpretation of this exam? Criteria for Assigning % of Stenosis / Diameter reduction (Estimation based on the indirect measurements of the internal carotid artery velocities (ICA PSV). 1. Normal (no stenosis)=ICA PSV < 125 cm/s: ratio < 2.0: ICA EDV<40 cm/s. 2. Less than 50% stenosis=ICA PSV < 125 cm/s: ratio < 2.0: ICA EDV<40 cm/s. 3. 50 to 69% stenosis=ICA PSV of 125 to 230 cm/s: ration 2.0 ? 4.0: ICA EDV 40-100 cm/s. 4. Greater than 70% stenosis to near occlusion= ICA PSV > 230 cm/s: ratio > 4.0: ICA EDV > 100 cm/s. 5. Near occlusion= ICA PSV velocities may be low or undetectable: variable ratio and ICA EDV. 6. Total occlusion=unable to detect flow.
[2021-01-17 17:39] LABS: Glucose,Whole Blood 247 mg/dL (75-99)
--- NOTE | 2021-01-17 18:00 | P.CONS ---
History of Present Illness - Reason for Consult Consult date: 01/17/21 leukocytosis Requesting physician: Tori Barney - Chief Complaint Fall - History of Present Illness Ms. Tong is a very pleasant 80 yo female with multiple comorbidities who is here for fall and knee pain. She lives with her son who helps with ADL's such as meal preparation and house cleaning, although pt is able to dress and bath herself independently. She uses a walker at home. She has very infrequent falls. Her legs gave out on her in the restroom and she fell on her knees. Son brought her to ED where she was found to have UTI. No head trauma. CXR negativ e. LFT's, creatinine normal. CBC with WBC 16, Hgb 10-11, plt 200's. She was started on antibiotics. Repeat WBC increased to 24, neutrophil and monocyte predominant, with stable Hgb and plt. Repeat today with WBC 20, neutrophil predominant with mild thrombocytopenia, plt 140. Calcium was high, 11, and improved to 10.8. Abd US without organomegaly. We were consulted for further rec's on leukocytosis. Pt denies smoking. No steroids recently. She does have asthma however no recent flares. No other symptoms of infection. She does have a family history of malignancy, including ovarian cancer, leukemia, and colon cancer. Past Medical History Past Medical History: Atrial Fibrillation, CVA/TIA, Hypertension Additional Past Medical History / Comment(s): Stroke x 2- PACEMAKER History of Any Multi-Drug Resistant Organisms: None Reported Past Surgical History: Appendectomy, Cholecystectomy, Orthopedic Surgery, Tonsillectomy Additional Past Surgical History / Comment(s): pt. states shes had two knee surgeries Past Anesthesia/Blood Transfusion Reactions: No Reported Reaction Additional Psychological History / Comment(s): . Smoking Status: Never smoker Past Alcohol Use History: None Reported Past Drug Use History: None Reported - Past Family History Son(s) Family Medical History: Myocardial Infarction ([place]) Medications and Allergies Home Medications Medication Instructions Recorded Confirmed Type Carvedilol [Coreg] 25 mg PO BID 05/08/17 01/15/21 History Cholecalciferol [Vitamin D3 (25 5,000 unit PO DAILY 05/08/17 01/15/21 History Mcg = 1000 Iu)] Magnesium Oxide [Mag-Ox] 250 mg PO DAILY 05/08/17 01/15/21 History Vitamin E (Dl,Tocopheryl Acet) 400 unit PO DAILY@1200 05/08/17 01/15/21 History [Vitamin E (400 Iu = 180 mg)] metFORMIN HCL [Glucophage] 500 mg PO TID 05/08/17 01/15/21 History Atorvastatin [Lipitor] 10 mg PO HS tab 05/11/17 01/15/21 Rx Calcium Carbonate [Calcium] 600 mg PO DAILY@1200 08/07/18 01/15/21 History Cyanocobalamin [Vitamin B-12] 500 mcg PO DAILY 08/07/18 01/15/21 History Cranberry Fruit Extract [Cranberry] 500 mg PO DAILY 01/29/19 01/15/21 History Ferrous Sulfate [Iron (65 MG 325 mg PO BID #60 tab 02/03/19 01/15/21 Rx Elemental)] Montelukast [Singulair] 10 mg PO HS #30 tab 02/03/19 01/15/21 Rx Furosemide [Lasix] 40 mg PO DAILY 01/15/21 01/15/21 History Losartan Potassium [Cozaar] 50 mg PO DAILY 01/15/21 01/15/21 History Warfarin Sodium 3 mg PO SUTUTH 01/15/21 01/15/21 History Warfarin [Coumadin] 6 mg PO MOWEFRSA 01/15/21 01/15/21 History glipiZIDE [Glucotrol] 10 mg PO BID 01/15/21 01/15/21 History Allergies Allergy/AdvReac Type Severity Reaction Status Date / Time influenza virus vaccine qs Allergy Unknown Unknown Verified 01/15/21 16:29 2016- (36 months up) [From Fluarix Quad 7700-3486 (PF)] aspirin Allergy Unknown Verified 01/15/21 16:29 Penicillins Allergy Rash/Hives Verified 01/15/21 16:29 radish Allergy Rash/Hives Verified 01/15/21 16:29 red dye Allergy Unknown Verified 01/15/21 16:29 Physical Exam Vitals: Vital Signs Temp Pulse Resp BP Pulse Ox 01/17/21 15:00 97.9 F 70 18 101/58 97 01/17/21 07:00 98.9 F 70 18 114/73 96 01/17/21 02:00 97.8 F 69 15 113/66 95 01/16/21 20:00 98.2 F 65 16 93/57 96 Intake and Output 01/17/21 01/17/21 01/17/21 06:59 14:59 22:59 Intake Total 50 Output Total 200 300 Balance -200 50 -300 Intake: Oral 50 Output: Urine 200 300 Other: Voiding Method Indwelling Catheter Indwelling Catheter Gen: No acute distress. HEENT: Mucosa moist. Lymph: No cervical LAD. Neck: Supple Lungs: No respiratory distress. Heart: Regular rate. MSK: bilateral knee pain from recent fall/trauma. Neuro: Alert and oriented x3 Psych: Appropriate affect. Results CBC & Chem 7: 01/17/21 04:25 01/16/21 04:37 Labs: Abnormal Lab Results - Last 24 Hours (Table) 01/16/21 01/16/21 01/17/21 Range/Units 18:06 20:20 04:25 WBC 20.3 H (3.8-10.6) k/uL RBC 3.74 L (3.80-5.40) m/uL Hgb 11.3 L (11.4-16.0) gm/dL Plt Count 140 L (150-450) k/uL Neutrophils # 18.5 H (1.3-7.7) k/uL Lymphocytes # 0.8 L (1.0-4.8) k/uL PT (9.0-12.0) sec INR (<1.2) POC Glucose (mg/dL) 243 H 206 H (75-99) mg/dL 01/17/21 01/17/21 01/17/21 Range/Units 04:25 07:22 12:13 WBC (3.8-10.6) k/uL RBC (3.80-5.40) m/uL Hgb (11.4-16.0) gm/dL Plt Count (150-450) k/uL Neutrophils # (1.3-7.7) k/uL Lymphocytes # (1.0-4.8) k/uL PT 18.9 H (9.0-12.0) sec INR 1.9 H (<1.2) POC Glucose (mg/dL) 254 H 215 H (75-99) mg/dL 01/17/21 Range/Units 17:37 WBC (3.8-10.6) k/uL RBC (3.80-5.40) m/uL Hgb (11.4-16.0) gm/dL Plt Count (150-450) k/uL Neutrophils # (1.3-7.7) k/uL Lymphocytes # (1.0-4.8) k/uL PT (9.0-12.0) sec INR (<1.2) POC Glucose (mg/dL) 247 H (75-99) mg/dL Microbiology - Last 24 Hours (Table) 01/15/21 15:00 Urine Culture - Final Urine,Clean Catch Klebsiella oxytoca 01/16/21 14:39 Blood Culture Gram Stain - Preliminary Blood Blood Culture - Preliminary Klebsiella oxytoca 01/15/21 16:41 Blood Culture - Final Blood Chest x-ray: report reviewed US - abdomen: report reviewed Assessment and Plan Assessment: 1. Leukocytosis 2. Thrombocytopenia 3. Hypercalcemia 4. Normocytic anemia 5. QUINCY on CKD 6. Fall with knee trauma 7. UTI Plan: Ms. Tong is a very pleasant 80 yo female here for fall, being treated for UTI, found to have leukocytosis. Last CBC in EMR from 05/2019 was normal, with WBC 8.7. Per pt and son over phone and daughter at bedside, her last CBC was from spring, but they cannot recall results. They were not told it was abnormal however. I suspect her leukocytosis is reactive, however cannot rule out underlying BM process. I am also worried about her mild anemia and hypercalcemia, as well as downtrending thrombocytopenia, which could be due to antibiotics/UTI as well. Will complete work up including iron panel, B12, folate, SPEP/FLC. Further work up such as JAK2/BCR if initial work up negative. Will also need to monitor her CBC as her symptoms improve to see if her leukocytosis resolves. Discussed in detail with pt and daughter at bedside and they were agreeable to the plan. All questions answered.
[2021-01-17 20:50] LABS: Glucose,Whole Blood 215 mg/dL (75-99)
[2021-01-17] MEDS: ATORVASTATIN 10 MG TAB PO SCH (20:55)
[2021-01-17] MEDS: MONTELUKAST 10 MG TAB PO SCH (20:57)
--- NOTE | 2021-01-17 21:34 | PN ---
PROGRESS NOTE DATE OF SERVICE: 01/17/2021 REASON FOR FOLLOWUP: Klebsiella UTI and bacteremia. INTERVAL HISTORY: The patient is afebrile. The patient is slightly more awake today. She is breathing comfortably. Denies any chest pain or cough. No nausea, vomiting. No abdominal pain. No diarrhea. PHYSICAL EXAMINATION: Blood pressure 101/58 with a pulse of 73, temperature of 97.9. She is 97% on room air. General description is an elderly female lying in bed in no distress. Respiratory system: Unlabored breathing, clear to auscultation anteriorly. Heart S1, S2. Regular rate and rhythm. Abdomen soft, no tenderness. LABS: White count 20,000. Ultrasound did not show any acute abnormality. Blood, urine with Klebsiella. DIAGNOSTIC IMPRESSION AND PLAN: Patient with Klebsiella UTI with bacteremia. The patient is covered with Rocephin to continue while monitoring clinical course closely. Continue supportive care. MMODL / IJN: [id number] /
[2021-01-18 05:59] LABS: Basophils % (A) 0 %; Eosinophils # (A) 0.1 k/uL (0-0.7); Eosinophils % (A) 1 %; HCT 30.9 % (34.0-46.0); HGB 10.5 gm/dL (11.4-16.0); Lymphocytes # (A) 1.1 k/uL (1.0-4.8); Lymphocytes % (A) 8 %; MCHC 33.9 g/dL (31.0-37.0); MCV 91.5 fL (80.0-100.0); Mean Platelet Volume 11.5; Monocytes # (A) 0.8 k/uL (0-1.0); Monocytes % (A) 6 %; Neutrophils # (A) 11.7 k/uL (1.3-7.7); Neutrophils % (A) 84 %; Platelet Count 133 k/uL (150-450); RBC 3.38 m/uL (3.80-5.40); RDW 13.7 % (11.5-15.5)
[2021-01-18 06:45] LABS: ALT 17 U/L (4-34); AST 41 U/L (14-36); African American GFR (CKD) 37 (>60 ml/min/1.73 sqM); Albumin 2.8 g/dL (3.5-5.0); Alkaline Phosphatase 56 U/L (38-126); Anion Gap 8 mmol/L; Blood Urea Nitrogen 51 mg/dL (7-17); Calcium 9.3 mg/dL (8.4-10.2); Carbon Dioxide 21 mmol/L (22-30); Chloride 103 mmol/L (98-107); Globulin 2.9 g/dL; Glucose 134 mg/dL (74-99); Non-African American GFR(CKD) 32 (>60 ml/min/1.73 sqM); Potassium 4.3 mmol/L (3.5-5.1); Sodium 132 mmol/L (137-145); Total Bilirubin 0.4 mg/dL (0.2-1.3); Total Protein 5.7 g/dL (6.3-8.2)
[2021-01-18 07:37] LABS: Glucose,Whole Blood 147 mg/dL (75-99)
[2021-01-18] MEDS: INSULIN ASPART (NovoLOG) 100 UNIT/ML VIAL SQ SCH ×4 (07:46→22:13)
[2021-01-18] MEDS: SODIUM CHLORIDE 0.9% 1,000 ML IV SCH ×2 (07:47→22:14)
[2021-01-18] MEDS: CHOLECALCIFEROL 25 MCG (1000 IU) TABLET PO SCH (07:47)
[2021-01-18] MEDS: CALCIUM CARBONATE 500 MG CHEWABLE PO SCH (07:48)
[2021-01-18] MEDS: LOSARTAN 50 MG TAB PO SCH (07:48)
[2021-01-18] MEDS: PANTOPRAZOLE 40 MG TABLET PO SCH (07:48)
[2021-01-18] MEDS: carvediloL 12.5 MG TAB PO SCH ×2 (07:48→17:40)
[2021-01-18] MEDS: MAGNESIUM OXIDE 400 MG TAB PO SCH (07:48)
[2021-01-18] MEDS: FERROUS SULFATE 325 MG TAB PO SCH ×2 (07:48→22:14)
[2021-01-18] MEDS: ENOXAPARIN 30 MG/0.3 ML SYRINGE SQ SCH (07:50)
[2021-01-18] MEDS: glipiZIDE 10 MG TAB PO SCH ×2 (07:50→22:15)
[2021-01-18] MEDS: CYANOCOBALAMIN 500 MCG TAB PO SCH (07:50)
[2021-01-18 12:27] LABS: Glucose,Whole Blood 161 mg/dL (75-99)
[2021-01-18] MEDS: VITAMIN E (DL,TOCOPHERYL ACET) 400 UNIT (180 MG) CAP PO SCH (12:33)
--- NOTE | 2021-01-18 13:25 | P.PN ---
Subjective Progress Note Date: 01/18/21 Patient was seen for a follow-up. Patient is laying comfortably in the bed. Patient states she is feeling little better. Denies any headache. No numbness tingling any visual symptoms. Her knees still sore. No new concerns. Objective - Vital Signs Vital signs: Vital Signs Temp 98.2 F 01/18/21 07:00 Pulse 70 01/18/21 07:00 Resp 17 01/18/21 07:00 BP 122/70 01/18/21 07:00 Pulse Ox 98 01/18/21 07:00 Intake & Output 01/17/21 01/18/21 01/18/21 18:59 06:59 18:59 Intake Total 50 Output Total 300 750 Balance -250 -750 Intake: Oral 50 Output: Urine 300 750 Other: Voiding Method Indwelling Catheter Indwelling Catheter Indwelling Catheter # Voids 1 - Exam Patient's mental status, speech and language functions are normal. Muscle strength is normal in the arms and left leg. Right knee hurts. - Labs CBC & Chem 7: 01/19/21 07:21 01/19/21 07:21 Labs: Abnormal Lab Results - Last 24 Hours (Table) 01/17/21 01/17/21 01/18/21 Range/Units 17:37 20:47 05:25 WBC 14.0 H (3.8-10.6) k/uL RBC 3.38 L (3.80-5.40) m/uL Hgb 10.5 L (11.4-16.0) gm/dL Hct 30.9 L (34.0-46.0) % Plt Count 133 L (150-450) k/uL Neutrophils # 11.7 H (1.3-7.7) k/uL Sodium (137-145) mmol/L Carbon Dioxide (22-30) mmol/L BUN (7-17) mg/dL Creatinine (0.52-1.04) mg/dL Glucose (74-99) mg/dL POC Glucose (mg/dL) 247 H 215 H (75-99) mg/dL AST (14-36) U/L Total Protein (6.3-8.2) g/dL Albumin (3.5-5.0) g/dL 01/18/21 01/18/21 01/18/21 Range/Units 05:25 07:36 12:25 WBC (3.8-10.6) k/uL RBC (3.80-5.40) m/uL Hgb (11.4-16.0) gm/dL Hct (34.0-46.0) % Plt Count (150-450) k/uL Neutrophils # (1.3-7.7) k/uL Sodium 132 L (137-145) mmol/L Carbon Dioxide 21 L (22-30) mmol/L BUN 51 H (7-17) mg/dL Creatinine 1.53 H (0.52-1.04) mg/dL Glucose 134 H (74-99) mg/dL POC Glucose (mg/dL) 147 H 161 H (75-99) mg/dL AST 41 H (14-36) U/L Total Protein 5.7 L (6.3-8.2) g/dL Albumin 2.8 L (3.5-5.0) g/dL Microbiology - Last 24 Hours (Table) 01/16/21 14:39 Blood Culture Gram Stain - Final Blood Blood Culture - Final Klebsiella oxytoca 01/17/21 04:25 Blood Culture - Preliminary Blood No Growth after 24 hours 01/15/21 15:00 Urine Culture - Final Urine,Clean Catch Klebsiella oxytoca 01/15/21 16:41 Blood Culture - Final Blood Assessment and Plan Assessment: * Altered mental status, likely due to metabolic encephalopathy related to acute UTI. Blood cultures positive for Klebsiella oxytoca. * Status post fall, likely due to generalized weakness from above. * Right knee pain due to fall. No evidence of fracture on computed tomography scan. * History of atrial fibrillation, on long-term anticoagulation with warfarin. INR was therapeutic. * History of strokes in the past. * Hypertension * Pacemaker * Diabetes, last A1c 6.5 on 07/01/2019. Plan: * Patient has acute UTI with mild metabolic encephalopathy. Patient already been started on ceftriaxone 1 g every 12 hours. * No evidence of an acute stroke based upon clinical examination and computed tomography scan findings. Continue warfarin, keep INR between 2.0-3.0. Informed the nurse. * Carotid Doppler showed no significant stenosis. Antegrade flow in both vertebral arteries. * PT and OT. * B12 1422, folate levels pending at the time of discharge. * Continue Lipitor. * No other neurological workup indicated. We will follow patient peripherally. Addendum 01/24/2021: Folate levels is very borderline 6.2. Suggest folate replacement. Informed PCP Dr Barney via perfect serve about low Folate level.
[2021-01-18 15:17] LABS: Albumin/Globulin Ratio 1.38 (1.60-3.17); BUN/Creat Ratio 23.81 Ratio (12.00-20.00); C Reactive Protein 21.8 mg/dL (0.0-0.8); Calcium 10.1 mg/dL (8.7-10.3); Globulin 2.9 g/dL (1.6-3.3); Non-African American GFR(CKD) 21.5 (60.0-200.0); Total Bilirubin 0.4 mg/dL (0.3-1.2); Total Protein 6.9 g/dL (6.2-8.2)
[2021-01-18 15:17] LABS: % Iron Saturation 4.3 (12.00-45.00); Ferritin 470.3 ng/mL (10.0-291.0)
--- NOTE | 2021-01-18 15:26 | P.CNOR ---
History of Present Illness - [facility] Consult date: 01/18/21 History of present illness: This patient is an 80- year old female with past medical history of atrial fibrillation on Coumadin, hypertension, CVA presented to [facility] emergency department on nights a specialist joint, and the plates of a fall at home. Patient states she was walking in the bathroom ability, and fell onto her anterior knee. She is brought to the emergency department by her family. X- rays and CT scan of the right knee in the emergency department showed no evidence of fracture. The patient has a history of a right TKA by Dr. Dickinson years ago. Patient states she had no pain, swelling and erythema to the right knee prior to her fall. Patient is having trouble ambulating due to her pain, therefore she was admitted on the care of internal medicine, with consult placed to orthopedics for evaluation of ongoing right knee pain. Upon admission, patient was found to have bacteremia secondary to UTI. Patient currently receiving Rocephin. Repeat blood cultures have been negative thus far. Neurology, infectious disease, and hematology/oncology have also been consulted. At the time of my exam, the patient is sitting up in bed. She states she continues to experience right knee pain, it has improved slightly since admission. She was able to sit bedside with physical therapy today. Patient uses a walker at baseline. She denies right knee pain prior to her fall. She denies noticing erythema, warmth, swelling of her knee. She denies hip pain. She denies chest pain, shortness of breath, nausea, vomiting. No additional complaints at this time, besides her right knee pain. Vital signs stable. Past Medical History Past Medical History: Atrial Fibrillation, CVA/TIA, Hypertension Additional Past Medical History / Comment(s): Stroke x 2- PACEMAKER History of Any Multi-Drug Resistant Organisms: None Reported Past Surgical History: Appendectomy, Cholecystectomy, Orthopedic Surgery, Ton sillectomy Additional Past Surgical History / Comment(s): pt. states shes had two knee surgeries Past Anesthesia/Blood Transfusion Reactions: No Reported Reaction Additional Psychological History / Comment(s): . Smoking Status: Never smoker Past Alcohol Use History: None Reported Past Drug Use History: None Reported - Past Family History Son(s) Family Medical History: Myocardial Infarction (RI) Medications and Allergies Home Medications Medication Instructions Recorded Confirmed Type Carvedilol [Coreg] 25 mg PO BID 05/08/17 01/15/21 History Cholecalciferol [Vitamin D3 (25 5,000 unit PO DAILY 05/08/17 01/15/21 History Mcg = 1000 Iu)] Magnesium Oxide [Mag-Ox] 250 mg PO DAILY 05/08/17 01/15/21 History Vitamin E (Dl,Tocopheryl Acet) 400 unit PO DAILY@1200 05/08/17 01/15/21 History [Vitamin E (400 Iu = 180 mg)] metFORMIN HCL [Glucophage] 500 mg PO TID 05/08/17 01/15/21 History Atorvastatin [Lipitor] 10 mg PO HS tab 05/11/17 01/15/21 Rx Calcium Carbonate [Calcium] 600 mg PO DAILY@1200 08/07/18 01/15/21 History Cyanocobalamin [Vitamin B-12] 500 mcg PO DAILY 08/07/18 01/15/21 History Cranberry Fruit Extract [Cranberry] 500 mg PO DAILY 01/29/19 01/15/21 History Ferrous Sulfate [Iron (65 MG 325 mg PO BID #60 tab 02/03/19 01/15/21 Rx Elemental)] Montelukast [Singulair] 10 mg PO HS #30 tab 02/03/19 01/15/21 Rx Furosemide [Lasix] 40 mg PO DAILY 01/15/21 01/15/21 History Losartan Potassium [Cozaar] 50 mg PO DAILY 01/15/21 01/15/21 History Warfarin Sodium 3 mg PO SUTUTH 01/15/21 01/15/21 History Warfarin [Coumadin] 6 mg PO MOWEFRSA 01/15/21 01/15/21 History glipiZIDE [Glucotrol] 10 mg PO BID 01/15/21 01/15/21 History Allergies Allergy/AdvReac Type Severity Reaction Status Date / Time influenza virus vaccine qs Allergy Unknown Unknown Verified 01/15/21 16:29 2017-18 (36 months up) [From Fluarix Quad 0400-9742 (PF)] aspirin Allergy Unknown Verified 01/15/21 16:29 Penicillins Allergy Rash/Hives Verified 01/15/21 16:29 radish Allergy Rash/Hives Verified 01/15/21 16:29 red dye Allergy Unknown Verified 01/15/21 16:29 Physical Examination On examination, patient is sitting up in bed in no apparent distress, She is alert and orientated x3. Her head appears normocephalic and atraumatic. Br eathing appears non-labored. On inspection of her bilateral upper extremities, no obvious deformities or signs of trauma. On inspection of her left lower extremity, no obvious deformities or signs of trauma. On inspection of the right knee, no overlying erythema, warmth, swelling. Mild ecchymosis at the medial knee. No significant joint effusion. Healed incision of the anterior knee consistent with a prior TKA. Patient allows gentle ROM of the knee without too much pain. Mild pain with palpation of the medial knee and medial tibia. No pain with palpation of the right hip, thigh, ankle foot. She has good strength and ROM of the right ankle. Motor and sensory function intact right lower extremity. Right lower extremity is warm and well perfused. Calves are soft and nontender to palpation bilaterally. Results Right knee x-ray 01/15/21: Prior TKA with implants in good position. No acute fractures. Right knee CT scan 01/16/21: No acute fractures. - Labs Labs: Abnormal Lab Results - Last 24 Hours (Table) 01/17/21 01/17/21 01/18/21 Range/Units 17:37 20:47 05:25 WBC 14.0 H (3.8-10.6) k/uL RBC 3.38 L (3.80-5.40) m/uL Hgb 10.5 L (11.4-16.0) gm/dL Hct 30.9 L (34.0-46.0) % Plt Count 133 L (150-450) k/uL Neutrophils # 11.7 H (1.3-7.7) k/uL Sodium (137-145) mmol/L Carbon Dioxide (22-30) mmol/L BUN (7-17) mg/dL Creatinine (0.52-1.04) mg/dL Glucose (74-99) mg/dL POC Glucose (mg/dL) 247 H 215 H (75-99) mg/dL AST (14-36) U/L Total Protein (6.3-8.2) g/dL Albumin (3.5-5.0) g/dL 01/18/21 01/18/21 01/18/21 Range/Units 05:25 07:36 12:25 WBC (3.8-10.6) k/uL RBC (3.80-5.40) m/uL Hgb (11.4-16.0) gm/dL Hct (34.0-46.0) % Plt Count (150-450) k/uL Neutrophils # (1.3-7.7) k/uL Sodium 132 L (137-145) mmol/L Carbon Dioxide 21 L (22-30) mmol/L BUN 51 H (7-17) mg/dL Creatinine 1.53 H (0.52-1.04) mg/dL Glucose 134 H (74-99) mg/dL POC Glucose (mg/dL) 147 H 161 H (75-99) mg/dL AST 41 H (14-36) U/L Total Protein 5.7 L (6.3-8.2) g/dL Albumin 2.8 L (3.5-5.0) g/dL Microbiology - Last 24 Hours (Table) 01/16/21 14:39 Blood Culture Gram Stain - Final Blood Blood Culture - Final Klebsiella oxytoca 01/17/21 04:25 Blood Culture - Preliminary Blood No Growth after 24 hours 01/15/21 15:00 Urine Culture - Final Urine,Clean Catch Klebsiella oxytoca H & H 01/15/21 01/16/21 01/17/21 Range/Units 16:41 04:37 04:25 Hgb 11.0 L 10.2 L 11.3 L (11.4-16.0) gm/dL Hct 33.3 L 32.4 L 34.3 (34.0-46.0) % 01/18/21 Range/Units 05:25 Hgb 10.5 L (11.4-16.0) gm/dL Hct 30.9 L (34.0-46.0) % Coagulation 01/15/21 01/16/21 01/17/21 Range/Units 16:41 04:37 04:25 INR 2.0 H 2.16 H 1.9 H (<1.2) Result Diagrams: 01/18/21 05:25 01/18/21 05:25 Assessment and Plan Assessment: Right knee pain s/p fall. History of right TKA by Dr. Dickinson. UTI Bactermia Plan: - Patient discussed with Dr. Nguyen. At this time, patient has no clinical signs of infection of the right knee. Her right knee pain is most likely secondary to her fall. CT scan and x-rays show no evidence of fracture of the right knee. - Recommend physical therapy for gait and balance training. Patient should ambulate with a walker. - Pain management as needed. - Medical management per internal medicine, neurology, hematology, infectious disease. - Will follow patient and make recommendations as needed.
[2021-01-18 17:21] LABS: Glucose,Whole Blood 137 mg/dL (75-99)
[2021-01-18] MEDS ORDERED: WARFARIN 2 MG TAB PO ONE (18:00)
[2021-01-18] MEDS ORDERED: WARFARIN 3 MG TAB PO SCH (18:00)
[2021-01-18 18:20] LABS: Protein, Total 7.2 g/dL (6.2-8.2)
--- NOTE | 2021-01-18 19:34 | P.PN ---
Subjective Progress Note Date: 01/18/21 This is a 80-year-old female patient who presented to the ER with concerns of fall with right knee pain. Per ER report patient denies hitting her head. Patient is also confused no family currently at bedside but per nursing staff patient is normally alert and oriented 3 . Patient has a past medical history of atrial fibrillation in which he is on Coumadin CVA and hypertension. X-ray of knee completed showing intact arthroplasty hardware generalized osteopenia no acute fracture dislocation seen. Trace joint effusion vascular calcium medications noted increased compared to prior. Urinary analysis positive for UTI. Patient has been started on Rocephin. White blood cell increasing to 24.51 despite antibiotic. Will consult oncology services in order chest x-ray blood culture and urine culture. Also concerns in regards altered mental status changes will order head CT given patient's history of CVA and on Coumadin. INR is currently therapeutic. Creatinine elevated at 1.67 and bun 40. Will increase fluids to 75. At this time patient is complaining of generalized pain unable to specify. Patient denies chest pain. Patient does deny shortness of breath. Patient denies any nausea vomiting or diarrhea. On 01/17/2021 Patient was seen and examined on the medical floor, he is alert and oriented x 3 in no distress, he denies any complaints there is no fever or chills no headache or dizziness no chest pain no shortness of breath no palpitation no cough no nausea or vomiting no abdominal pain no diarrhea no blood in the stools no burning with urination no frequency or urgency and no hematuria, there is no weakness or numbness in any of the extremities no change in vision speech or gait. Patient is more alert today continue with current medications will follow in a.m. On 01/18/2021 Patient was seen and examined on the medical floor, he is alert and oriented x 3 in no distress, he denies any complaints there is no fever or chills no headache or dizziness no chest pain no shortness of breath no palpitation no cough no nausea or vomiting no abdominal pain no diarrhea no blood in the stools no burning with urination no frequency or urgency and no hematuria, there is no weakness or numbness in any of the extremities no change in vision speech. Patient is still having pain in the right knee area and having significant difficulty with her gait. Objective - Vital Signs Vital signs: Vital Signs Temp 99.3 F 01/18/21 15:00 Pulse 70 01/18/21 15:00 Resp 17 01/18/21 15:00 BP 114/52 01/18/21 15:00 Pulse Ox 99 01/18/21 15:00 Intake & Output 01/18/21 01/18/21 01/19/21 06:59 18:59 06:59 Output Total 750 500 Balance -750 -500 Output: Urine 750 500 Other: Voiding Method Indwelling Catheter Indwelling Catheter # Voids 1 - Exam Head normocephalic Neck supple Lungs clear to auscultation bilaterally no wheezing or crackles Heart regular rate and rhythm S1-S2, no rub or gallop Abdomen is soft nontender nondistended positive bowel sounds no hepatosplenomegaly Extremities no edema Neuro alert and orientated to 1. Patient appears to be a poor historian - Labs CBC & Chem 7: 01/18/21 05:25 01/18/21 05:25 Labs: Abnormal Lab Results - Last 24 Hours (Table) 01/17/21 01/17/21 01/17/21 Range/Units 04:25 04:25 18:00 WBC (3.8-10.6) k/uL RBC (3.80-5.40) m/uL Hgb (11.4-16.0) gm/dL Hct (34.0-46.0) % Plt Count (150-450) k/uL Neutrophils # (1.3-7.7) k/uL Sodium (137-145) mmol/L Potassium 6.0 H (3.5-5.5) mmol/L Carbon Dioxide 13.0 L (21.6-31.8) mmol/L Anion Gap 22.00 H (4.00-12.00) mmol/L BUN 50.0 H (9.0-27.0) mg/dL Creatinine 2.1 H (0.6-1.5) mg/dL Est GFR (CKD-EPI)AfAm 25.0 L (60.0-200.0) Est GFR (CKD-EPI)NonAf 21.5 L (60.0-200.0) BUN/Creatinine Ratio 23.81 H (12.00-20.00) Ratio Glucose 174 H (70-110) mg/dL POC Glucose (mg/dL) (75-99) mg/dL Iron 12 L (50-170) ug/dL % Saturation 4.30 L (12.00-45.00) Ferritin 470.3 H (10.0-291.0) ng/mL AST 45 H (13-35) U/L C-Reactive Protein 21.8 H (0.0-0.8) mg/dL Total Protein (6.3-8.2) g/dL Albumin (3.5-5.0) g/dL Albumin/Globulin Ratio 1.38 L (1.60-3.17) g/dL Vitamin B12 1422.0 H (200.0-944.0) pg/mL 01/17/21 01/18/21 01/18/21 Range/Units 20:47 05:25 05:25 WBC 14.0 H (3.8-10.6) k/uL RBC 3.38 L (3.80-5.40) m/uL Hgb 10.5 L (11.4-16.0) gm/dL Hct 30.9 L (34.0-46.0) % Plt Count 133 L (150-450) k/uL Neutrophils # 11.7 H (1.3-7.7) k/uL Sodium 132 L (137-145) mmol/L Potassium (3.5-5.5) mmol/L Carbon Dioxide 21 L (21.6-31.8) mmol/L Anion Gap (4.00-12.00) mmol/L BUN 51 H (9.0-27.0) mg/dL Creatinine 1.53 H (0.6-1.5) mg/dL Est GFR (CKD-EPI)AfAm (60.0-200.0) Est GFR (CKD-EPI)NonAf (60.0-200.0) BUN/Creatinine Ratio (12.00-20.00) Ratio Glucose 134 H (70-110) mg/dL POC Glucose (mg/dL) 215 H (75-99) mg/dL Iron (50-170) ug/dL % Saturation (12.00-45.00) Ferritin (10.0-291.0) ng/mL AST 41 H (13-35) U/L C-Reactive Protein (0.0-0.8) mg/dL Total Protein 5.7 L (6.3-8.2) g/dL Albumin 2.8 L (3.5-5.0) g/dL Albumin/Globulin Ratio (1.60-3.17) g/dL Vitamin B12 (200.0-944.0) pg/mL 01/18/21 01/18/21 01/18/21 Range/Units 07:36 12:25 17:19 WBC (3.8-10.6) k/uL RBC (3.80-5.40) m/uL Hgb (11.4-16.0) gm/dL Hct (34.0-46.0) % Plt Count (150-450) k/uL Neutrophils # (1.3-7.7) k/uL Sodium (137-145) mmol/L Potassium (3.5-5.5) mmol/L Carbon Dioxide (21.6-31.8) mmol/L Anion Gap (4.00-12.00) mmol/L BUN (9.0-27.0) mg/dL Creatinine (0.6-1.5) mg/dL Est GFR (CKD-EPI)AfAm (60.0-200.0) Est GFR (CKD-EPI)NonAf (60.0-200.0) BUN/Creatinine Ratio (12.00-20.00) Ratio Glucose (70-110) mg/dL POC Glucose (mg/dL) 147 H 161 H 137 H (75-99) mg/dL Iron (50-170) ug/dL % Saturation (12.00-45.00) Ferritin (10.0-291.0) ng/mL AST (13-35) U/L C-Reactive Protein (0.0-0.8) mg/dL Total Protein (6.3-8.2) g/dL Albumin (3.5-5.0) g/dL Albumin/Globulin Ratio (1.60-3.17) g/dL Vitamin B12 (200.0-944.0) pg/mL Microbiology - Last 24 Hours (Table) 01/16/21 14:39 Blood Culture Gram Stain - Final Blood Blood Culture - Final Klebsiella oxytoca 01/17/21 04:25 Blood Culture - Preliminary Blood No Growth after 24 hours 01/15/21 15:00 Urine Culture - Final Urine,Clean Catch Klebsiella oxytoca Assessment and Plan Assessment: 1. Fall with knee pain. Knee pain x-ray negative for fracture. PT OT and social work services consulted for discharge planning 2. Urinary tract infection. Urine culture ordered. Patient started on Rocephin 3. Leukocytosis. WBC continue to elevate at 24.5. Hematology service is consulted. Chest x-ray urine culture and blood culture ordered 4. Altered mental status changes. Given patient's history of CVA and Coumadin use will order head CT 5. Acute kidney injury. Patient maintained on normal saline at 75 repeat labs ordered. Patient's metformin Lasix currently on hold 6. History of CVA 7. History of chronic systolic CHF. Patient's Lasix currently on hold due to acute kidney injury 8. History of atrial fibrillation. She is maintained on Coumadin 9. Essential hypertension 10. Diabetes mellitus type 2. Continue sliding scale coverage DVT prophylaxis Coumadin and SCDs. Coumadin on hold until head CT completed. GI prophylaxis Protonix Head CT ordered Chest x-ray, urine culture and blood culture ordered Hematology consulted for leukocytosis Continue normal saline at 75 Repeat labs ordered
--- NOTE | 2021-01-18 19:41 | PN ---
PROGRESS NOTE DATE OF SERVICE: 01/18/2021 REASON FOR FOLLOWUP: Klebsiella UTI and bacteremia. INTERVAL HISTORY: The patient is afebrile. The patient is breathing comfortably. The patient denies having any chest pain, shortness of breath or cough. No nausea, no vomiting, no abdominal pain or diarrhea. PHYSICAL EXAMINATION: Blood pressure 114/52 with a pulse of 70, temperature 99.3. She is 99% on room air. GENERAL DESCRIPTION: General description is an elderly female lying in bed in no distress. RESPIRATORY SYSTEM: Unlabored breathing. Clear to auscultation anteriorly. HEART: S1, S2. Regular rate and rhythm. ABDOMEN: Soft. No tenderness. LABS: Hemoglobin 10.5, white count 14, creatinine 1.53. Blood culture repeat has been negative so far. DIAGNOSTIC IMPRESSION AND PLAN: Patient with Klebsiella urinary tract infection and bacteremia, responding to the Rocephin; to continue. White count is trending down. Continue supportive care. MMODL / IJN: [id number] / MTDD
[2021-01-18 20:54] LABS: Glucose,Whole Blood 154 mg/dL (75-99)
[2021-01-18] MEDS: MONTELUKAST 10 MG TAB PO SCH (22:14)
[2021-01-18] MEDS: ATORVASTATIN 10 MG TAB PO SCH (22:14)
--- NOTE | 2021-01-19 06:02 | P.CONS ---
History of Present Illness - Chief Complaint Walking difficulty, bilateral knee pain - History of Present Illness I had the opportunity to see patient for inpatient rehab consultation with regard to walking difficulty. She was admitted to [facility] January 15 history of fall and the right knee pain. Patient describes bilateral knee pain. Admitted with diagnosis UTI and mental status change. Seen by neurology, Dr. Recinos son who diagnosed acute encephalopathy. Seen by Dr. Bravo or any for UTI and leukocytosis. Seen by Dr. Nguyen for the right knee pain. Denies fracture. Workup includes right knee x-ray which shows intact arthrodesis. Head CT with old left frontal, cerebellar and ischemic change. Chest x-ray with interstitial density and decreasing CHF. Right knee CT with small joint effusion only. Abdominal ultrasound bowel gas only. Carotid Doppler done. Has started therapy. PT reports maximal assistance for bed mobility. Standing balance poor. OT reports moderate assistance for upper dressing toileting, maximal assistance for lower dressing and total assistance for bathing. Feeding was supervision in grooming was minimal assist. Previous functional history as elicited from patient: 80-year-old right-handed white female who is lives in trailer home with son. Patient retired in 7 disability related to heart. Son does cooking, laundry, driving. Patient independent with own sponge bath, gait with [address] Thompson. Denies tobacco or alcohol. Review of Systems Review of systems: ENT: Denies sneezes or discharge. Eyes: Denies discharge or photophobia. Cardiac: Denies chest pain or palpitation. Pulmonary: Denies cough or shortness of breath. Breast: Denies discharge or lumps. Gastrointestinal: Denies nausea, emesis, constipation, diarrhea. Genitourinary: Denies discharge or frequency. Musculoskeletal: Bilateral knee pain. Neurologic: Denies motor or sensory change. Endocrine: Denies shakes or sweats. Oncology: Denies cancers. Dermatologic: Denies rash, itching, pruritus. ALLERGY/immunology: Denies sneezes, rashes. Past Medical History Past Medical History: Atrial Fibrillation, CVA/TIA, Hypertension Additional Past Medical History / Comment(s): Stroke x 2- PACEMAKER History of Any Multi-Drug Resistant Organisms: None Reported Past Surgical History: Appendectomy, Cholecystectomy, Orthopedic Surgery, Tonsillectomy Additional Past Surgical History / Comment(s): pt. states shes had two knee surgeries Past Anesthesia/Blood Transfusion Reactions: No Reported Reaction Additional Psychological History / Comment(s): . Smoking Status: Never smoker Past Alcohol Use History: None Reported Past Drug Use History: None Reported - Past Family History Son(s) Family Medical History: Myocardial Infarction ([place]) Medications and Allergies Home Medications Medication Instructions Recorded Confirmed Type Carvedilol [Coreg] 25 mg PO BID 05/08/17 01/15/21 History Cholecalciferol [Vitamin D3 (25 5,000 unit PO DAILY 05/08/17 01/15/21 History Mcg = 1000 Iu)] Magnesium Oxide [Mag-Ox] 250 mg PO DAILY 05/08/17 01/15/21 History Vitamin E (Dl,Tocopheryl Acet) 400 unit PO DAILY@1200 05/08/17 01/15/21 History [Vitamin E (400 Iu = 180 mg)] metFORMIN HCL [Glucophage] 500 mg PO TID 05/08/17 01/15/21 History Atorvastatin [Lipitor] 10 mg PO HS tab 05/11/17 01/15/21 Rx Calcium Carbonate [Calcium] 600 mg PO DAILY@1200 08/07/18 01/15/21 History Cyanocobalamin [Vitamin B-12] 500 mcg PO DAILY 08/07/18 01/15/21 History Cranberry Fruit Extract [Cranberry] 500 mg PO DAILY 01/29/19 01/15/21 History Ferrous Sulfate [Iron (65 MG 325 mg PO BID #60 tab 02/03/19 01/15/21 Rx Elemental)] Montelukast [Singulair] 10 mg PO HS #30 tab 02/03/19 01/15/21 Rx Furosemide [Lasix] 40 mg PO DAILY 01/15/21 01/15/21 History Losartan Potassium [Cozaar] 50 mg PO DAILY 01/15/21 01/15/21 History Warfarin Sodium 3 mg PO SUTUTH 01/15/21 01/15/21 History Warfarin [Coumadin] 6 mg PO MOWEFRSA 01/15/21 01/15/21 History glipiZIDE [Glucotrol] 10 mg PO BID 01/15/21 01/15/21 History Allergies Allergy/AdvReac Type Severity Reaction Status Date / Time influenza virus vaccine qs Allergy Unknown Unknown Verified 01/15/21 16:29 2016- (36 months up) [From Fluarix Quad [id number] (PF)] aspirin Allergy Unknown Verified 01/15/21 16:29 Penicillins Allergy Rash/Hives Verified 01/15/21 16:29 radish Allergy Rash/Hives Verified 01/15/21 16:29 red dye Allergy Unknown Verified 01/15/21 16:29 Physical Exam Vitals: Vital Signs Temp Pulse Resp BP BP Pulse Ox 01/19/21 02:16 97.7 F 70 18 118/66 96 01/18/21 20:00 18 01/18/21 19:44 99.2 F 70 18 112/70 96 01/18/21 15:00 99.3 F 70 17 114/52 99 01/18/21 07:00 98.2 F 70 17 122/70 98 Intake and Output 01/18/21 01/18/21 01/19/21 14:59 22:59 06:59 Output Total 500 300 Balance -500 -300 Output: Urine 500 300 Other: Voiding Method Indwelling Catheter Indwelling Catheter # Voids 2 Skin: Atrophic, intact. General: Medium build and comfortable appearance. Head: Normocephalic, atraumatic. Eyes: Symmetric. Pupils equal round. Ears: Symmetric. Hearing within normal limits. Mouth: Clear. Neck: Supple. Carotid without bruit. Cardiac: Regular rate and rhythm. Lungs: Clear anteriorly and posteriorly. Abdomen: Soft active nontender. Extremities: Normal tone. Neurological: Mental status: Alert, cooperative, pleasant. Cranial nerves: Symmetric facial tone and trapezius. Motor: Active movement arms of at least antigravity. Legs poor secondary to knee discomforts. Active movement ankles. Sensation: Intact throughout. DTRs: Symmetric and equal throughout. Mobility: Sits with maximal assistance. Results CBC & Chem 7: 01/18/21 05:25 01/18/21 05:25 Labs: Abnormal Lab Results - Last 24 Hours (Table) 01/17/21 01/17/21 01/17/21 Range/Units 04:25 04:25 18:00 WBC (3.8-10.6) k/uL RBC (3.80-5.40) m/uL Hgb (11.4-16.0) gm/dL Hct (34.0-46.0) % Plt Count (150-450) k/uL Neutrophils # (1.3-7.7) k/uL Sodium (137-145) mmol/L Potassium 6.0 H (3.5-5.5) mmol/L Carbon Dioxide 13.0 L (21.6-31.8) mmol/L Anion Gap 22.00 H (4.00-12.00) mmol/L BUN 50.0 H (9.0-27.0) mg/dL Creatinine 2.1 H (0.6-1.5) mg/dL Est GFR (CKD-EPI)AfAm 25.0 L (60.0-200.0) Est GFR (CKD-EPI)NonAf 21.5 L (60.0-200.0) BUN/Creatinine Ratio 23.81 H (12.00-20.00) Ratio Glucose 174 H (70-110) mg/dL POC Glucose (mg/dL) (75-99) mg/dL Iron 12 L (50-170) ug/dL % Saturation 4.30 L (12.00-45.00) Ferritin 470.3 H (10.0-291.0) ng/mL AST 45 H (13-35) U/L C-Reactive Protein 21.8 H (0.0-0.8) mg/dL Total Protein (6.3-8.2) g/dL Albumin (3.5-5.0) g/dL Albumin/Globulin Ratio 1.38 L (1.60-3.17) g/dL Vitamin B12 1422.0 H (200.0-944.0) pg/mL 01/18/21 01/18/21 01/18/21 Range/Units 05:25 05:25 07:36 WBC 14.0 H (3.8-10.6) k/uL RBC 3.38 L (3.80-5.40) m/uL Hgb 10.5 L (11.4-16.0) gm/dL Hct 30.9 L (34.0-46.0) % Plt Count 133 L (150-450) k/uL Neutrophils # 11.7 H (1.3-7.7) k/uL Sodium 132 L (137-145) mmol/L Potassium (3.5-5.5) mmol/L Carbon Dioxide 21 L (21.6-31.8) mmol/L Anion Gap (4.00-12.00) mmol/L BUN 51 H (9.0-27.0) mg/dL Creatinine 1.53 H (0.6-1.5) mg/dL Est GFR (CKD-EPI)AfAm (60.0-200.0) Est GFR (CKD-EPI)NonAf (60.0-200.0) BUN/Creatinine Ratio (12.00-20.00) Ratio Glucose 134 H (70-110) mg/dL POC Glucose (mg/dL) 147 H (75-99) mg/dL Iron (50-170) ug/dL % Saturation (12.00-45.00) Ferritin (10.0-291.0) ng/mL AST 41 H (13-35) U/L C-Reactive Protein (0.0-0.8) mg/dL Total Protein 5.7 L (6.3-8.2) g/dL Albumin 2.8 L (3.5-5.0) g/dL Albumin/Globulin Ratio (1.60-3.17) g/dL Vitamin B12 (200.0-944.0) pg/mL 01/18/21 01/18/21 01/18/21 Range/Units 12:25 17:19 20:52 WBC (3.8-10.6) k/uL RBC (3.80-5.40) m/uL Hgb (11.4-16.0) gm/dL Hct (34.0-46.0) % Plt Count (150-450) k/uL Neutrophils # (1.3-7.7) k/uL Sodium (137-145) mmol/L Potassium (3.5-5.5) mmol/L Carbon Dioxide (21.6-31.8) mmol/L Anion Gap (4.00-12.00) mmol/L BUN (9.0-27.0) mg/dL Creatinine (0.6-1.5) mg/dL Est GFR (CKD-EPI)AfAm (60.0-200.0) Est GFR (CKD-EPI)NonAf (60.0-200.0) BUN/Creatinine Ratio (12.00-20.00) Ratio Glucose (70-110) mg/dL POC Glucose (mg/dL) 161 H 137 H 154 H (75-99) mg/dL Iron (50-170) ug/dL % Saturation (12.00-45.00) Ferritin (10.0-291.0) ng/mL AST (13-35) U/L C-Reactive Protein (0.0-0.8) mg/dL Total Protein (6.3-8.2) g/dL Albumin (3.5-5.0) g/dL Albumin/Globulin Ratio (1.60-3.17) g/dL Vitamin B12 (200.0-944.0) pg/mL Microbiology - Last 24 Hours (Table) 01/16/21 14:39 Blood Culture Gram Stain - Final Blood Blood Culture - Final Klebsiella oxytoca 01/17/21 04:25 Blood Culture - Preliminary Blood No Growth after 24 hours Assessment and Plan (1) Knee pain Current Visit: Yes Status: Acute Code(s): M25.569 - PAIN IN UNSPECIFIED KNEE SNOMED Code(s): 8382641869 (2) UTI (urinary tract infection) Current Visit: Yes Status: Acute Code(s): N39.0 - URINARY TRACT INFECTION, SITE NOT SPECIFIED SNOMED Code(s): 66089037 (3) Congestive heart failure Current Visit: No Status: Acute Code(s): I50.9 - HEART FAILURE, UNSPECIFIED SNOMED Code(s): 17105734 Plan: Impression: 1. Fall with bilateral knee pain and arthritis. 2. UTI. 3. CHF. 4. Acute encephalopathy. Constant plan: At this time PT and OT are ongoing. Patient with endurance issues related to discomfort and knees. She is anticipating transfer to [facility] and this appears be appropriate plan at this time.
[2021-01-19 07:27] LABS: Glucose,Whole Blood 148 mg/dL (75-99)
[2021-01-19] MEDS: INSULIN ASPART (NovoLOG) 100 UNIT/ML VIAL SQ SCH ×4 (08:25→21:50)
[2021-01-19] MEDS: ENOXAPARIN 30 MG/0.3 ML SYRINGE SQ SCH (08:26)
[2021-01-19] MEDS: PANTOPRAZOLE 40 MG TABLET PO SCH (08:27)
[2021-01-19] MEDS: CALCIUM CARBONATE 500 MG CHEWABLE PO SCH (08:27)
[2021-01-19] MEDS: FERROUS SULFATE 325 MG TAB PO SCH ×2 (08:27→21:50)
[2021-01-19] MEDS: MAGNESIUM OXIDE 400 MG TAB PO SCH (08:27)
[2021-01-19] MEDS: CHOLECALCIFEROL 25 MCG (1000 IU) TABLET PO SCH (08:27)
[2021-01-19] MEDS: carvediloL 12.5 MG TAB PO SCH ×2 (08:27→17:22)
[2021-01-19] MEDS: CYANOCOBALAMIN 500 MCG TAB PO SCH (08:27)
[2021-01-19] MEDS: LOSARTAN 50 MG TAB PO SCH (08:27)
[2021-01-19] MEDS: ACETAMINOPHEN TAB 500 MG TAB PO PRN (08:28)
[2021-01-19] MEDS: VITAMIN E (DL,TOCOPHERYL ACET) 400 UNIT (180 MG) CAP PO SCH (08:28)
[2021-01-19] MEDS: glipiZIDE 10 MG TAB PO SCH ×2 (08:28→21:50)
[2021-01-19] MEDS: SODIUM CHLORIDE 0.9% 1,000 ML IV SCH ×2 (08:29→23:57)
[2021-01-19 11:44] LABS: Glucose,Whole Blood 207 mg/dL (75-99)
[2021-01-19 11:51] LABS: INR 1.21 (0.90-1.11)
[2021-01-19 11:59] LABS: Basophils # (A) 0.02 X 10*3/uL (0.00-0.10); Basophils % (A) 0.2 %; Eosinophils # (A) 0.06 X 10*3/uL (0.04-0.35); Eosinophils % (A) 0.6 %; HCT 27.5 % (37.2-46.3); HGB 8.8 g/dL (12.0-15.0); Lymphocytes # (A) 0.82 X 10*3/uL (0.90-5.00); Lymphocytes % (A) 8.7 %; MCH 29.7 pg (27.0-32.0); MCV 92.9 fL (80.0-97.0); Mean Platelet Volume 13.9 fL (9.5-12.2); Monocytes # (A) 0.95 X 10*3/uL (0.20-1.00); Monocytes % (A) 10.1 %; Neutrophils # (A) 7.42 X 10*3/uL (1.80-7.70); Neutrophils % (A) 78.8 %; Platelet Count 149 X 10*3/uL (140-440); RBC 2.96 X 10*6/uL (4.10-5.20); RDW 13.2 % (11.5-14.5); WBC 9.42 X 10*3/uL (4.50-10.00)
[2021-01-19 13:16] LABS: Gamma Globulin 0.94 g/dL (0.70-1.50)
--- NOTE | 2021-01-19 13:33 | PN ---
PROGRESS NOTE DATE OF SERVICE: 01/19/2021 REASON FOR FOLLOWUP: Klebsiella UTI and bacteremia. INTERVAL HISTORY: The patient is afebrile. The patient is breathing comfortably. The patient denies having any chest pain or shortness of breath or cough. No nausea, no vomiting, no abdominal pain or diarrhea. PHYSICAL EXAMINATION: Blood pressure 125/69 with a pulse of 70, temperature 98.1. She is 96% on room air. GENERAL DESCRIPTION: General description is an elderly female up in the bed in no distress. RESPIRATORY SYSTEM: Unlabored breathing. Clear to auscultation anteriorly. HEART: S1, S2. Regular rate and rhythm. ABDOMEN: Soft. No tenderness. LAB DATA: Hemoglobin is 8.9, white count 9.42. Blood culture repeat has been negative. DIAGNOSTIC IMPRESSION AND PLAN: Patient with Klebsiella bacteremia secondary to urinary source; ultrasound negative for any structural abnormality. Overall improvement on Rocephin. Finish therapy with oral Cipro for another 10 days on discharge and close outpatient followup. MMODL / IJN: [id number] /
[2021-01-19 13:52] LABS: African American GFR (CKD) 40.7 (60.0-200.0); Albumin 3.1 g/dL (3.80-4.90); Albumin/Globulin Ratio 1.15 (1.60-3.17); Anion Gap 11.9 mmol/L (4.00-12.00); Calcium 8.9 mg/dL (8.7-10.3); Carbon Dioxide 19.1 mmol/L (21.6-31.8); Globulin 2.7 g/dL (1.6-3.3); Non-African American GFR(CKD) 35.1 (60.0-200.0); Potassium 4.1 mmol/L (3.5-5.5); Total Bilirubin 0.5 mg/dL (0.2-1.2); Total Protein 5.8 g/dL (6.2-8.2)
[2021-01-19 14:17] LABS: Free Kappa Lt Chain Qnt, Serum 13.13 mg/dL (0.33-1.94)
[2021-01-19 15:43] LABS: Erythrocyte Sedimentation Rate 66 mm/Hr (0-30)
--- NOTE | 2021-01-19 16:38 | P.PN ---
Subjective Progress Note Date: 01/19/21 This is a 80-year-old female patient who presented to the ER with concerns of fall with right knee pain. Per ER report patient denies hitting her head. Patient is also confused no family currently at bedside but per nursing staff patient is normally alert and oriented 3 . Patient has a past medical history of atrial fibrillation in which he is on Coumadin CVA and hypertension. X-ray of knee completed showing intact arthroplasty hardware generalized osteopenia no acute fracture dislocation seen. Trace joint effusion vascular calcium medications noted increased compared to prior. Urinary analysis positive for UTI. Patient has been started on Rocephin. White blood cell increasing to 24.51 despite antibiotic. Will consult oncology services in order chest x-ray blood culture and urine culture. Also concerns in regards altered mental status changes will order head CT given patient's history of CVA and on Coumadin. INR is currently therapeutic. Creatinine elevated at 1.67 and bun 40. Will increase fluids to 75. At this time patient is complaining of generalized pain unable to specify. Patient denies chest pain. Patient does deny shortness of breath. Patient denies any nausea vomiting or diarrhea. On 01/17/2021 Patient was seen and examined on the medical floor, he is alert and oriented x 3 in no distress, he denies any complaints there is no fever or chills no headache or dizziness no chest pain no shortness of breath no palpitation no cough no nausea or vomiting no abdominal pain no diarrhea no blood in the stools no burning with urination no frequency or urgency and no hematuria, there is no weakness or numbness in any of the extremities no change in vision speech or gait. Patient is more alert today continue with current medications will follow in a.m. On 01/18/2021 Patient was seen and examined on the medical floor, he is alert and oriented x 3 in no distress, he denies any complaints there is no fever or chills no headache or dizziness no chest pain no shortness of breath no palpitation no cough no nausea or vomiting no abdominal pain no diarrhea no blood in the stools no burning with urination no frequency or urgency and no hematuria, there is no weakness or numbness in any of the extremities no change in vision speech. Patient is still having pain in the right knee area and having significant difficulty with her gait. On 01/19/2021 patient was seen and examined on the medical floor she is alert and oriented 3 in no apparent distress she is still complaining of severe weakness and pain in her right knee she is having difficulty standing up and walking, otherwise she denies any complaints there is no fever or chills no headache or dizziness no chest pain no shortness of breath no palpitation no cough no nausea or vomiting no abdominal pain no diarrhea no blood in the stools no burning with urination no frequency or urgency and no hematuria, there is no weakness or numbness in any of the extremities no change in vision speech. Objective - Vital Signs Vital signs: Vital Signs Temp 98.0 F 01/19/21 14:00 Pulse 71 01/19/21 14:00 Resp 17 01/19/21 14:00 BP 130/92 01/19/21 14:00 Pulse Ox 97 01/19/21 14:00 Intake & Output 01/18/21 01/19/21 01/19/21 18:59 06:59 18:59 Output Total 500 300 Balance -500 -300 Output: Urine 500 300 Other: Voiding Method Indwelling Catheter Indwelling Catheter # Voids 2 - Exam Head normocephalic Neck supple Lungs clear to auscultation bilaterally no wheezing or crackles Heart regular rate and rhythm S1-S2, no rub or gallop Abdomen is soft nontender nondistended positive bowel sounds no hepatosplenomegaly Extremities no edema Neuro alert and orientated to 1. Patient appears to be a poor historian - Labs CBC & Chem 7: 01/19/21 07:21 01/19/21 07:21 Labs: Abnormal Lab Results - Last 24 Hours (Table) 01/17/21 01/17/21 01/18/21 Range/Units 04:25 18:00 17:19 RBC (4.10-5.20) X 10*6/uL Hgb (12.0-15.0) g/dL Hct (37.2-46.3) % MPV (9.5-12.2) fL Immature Gran # (0.00-0.04) X 10*3/uL Lymphocytes # (0.90-5.00) X 10*3/uL PT (9.9-11.9) sec INR (0.90-1.11) Carbon Dioxide (21.6-31.8) mmol/L BUN (9.0-27.0) mg/dL Est GFR (CKD-EPI)AfAm (60.0-200.0) Est GFR (CKD-EPI)NonAf (60.0-200.0) BUN/Creatinine Ratio (12.00-20.00) Ratio Glucose (70-110) mg/dL POC Glucose (mg/dL) 137 H (75-99) mg/dL Total Protein (6.2-8.2) g/dL Albumin (3.80-4.90) g/dL Albumin (PEP) 3.30 L (3.80-4.90) g/dL Albumin/Globulin Ratio (1.60-3.17) g/dL Suyza-6-Plgwsdrvc 0.45 H (0.10-0.40) g/dL Nehph-4-Fwsezsarb 1.20 H (0.60-1.00) g/dL Beta Globulins 1.31 H (0.60-1.30) g/dL Vitamin B12 1422.0 H (200.0-944.0) pg/mL Free [place] LC, Quant 13.13 H (0.33-1.94) mg/dL Free Lambda LC, Quant 4.49 H (0.57-2.63) mg/dL 01/18/21 01/19/21 01/19/21 Range/Units 20:52 07:21 07:21 RBC 2.96 L (4.10-5.20) X 10*6/uL Hgb 8.8 L (12.0-15.0) g/dL Hct 27.5 L (37.2-46.3) % MPV 13.9 H (9.5-12.2) fL Immature Gran # 0.15 H (0.00-0.04) X 10*3/uL Lymphocytes # 0.82 L (0.90-5.00) X 10*3/uL PT (9.9-11.9) sec INR (0.90-1.11) Carbon Dioxide 19.1 L (21.6-31.8) mmol/L BUN 42.0 H (9.0-27.0) mg/dL Est GFR (CKD-EPI)AfAm 40.7 L (60.0-200.0) Est GFR (CKD-EPI)NonAf 35.1 L (60.0-200.0) BUN/Creatinine Ratio 30.00 H (12.00-20.00) Ratio Glucose 138 H (70-110) mg/dL POC Glucose (mg/dL) 154 H (75-99) mg/dL Total Protein 5.8 L (6.2-8.2) g/dL Albumin 3.10 L (3.80-4.90) g/dL Albumin (PEP) (3.80-4.90) g/dL Albumin/Globulin Ratio 1.15 L (1.60-3.17) g/dL Dejro-9-Bowwdwqut (0.10-0.40) g/dL Vqqwm-7-Gohuudorf (0.60-1.00) g/dL Beta Globulins (0.60-1.30) g/dL Vitamin B12 (200.0-944.0) pg/mL Free [place] LC, Quant (0.33-1.94) mg/dL Free Lambda LC, Quant (0.57-2.63) mg/dL 01/19/21 01/19/21 01/19/21 Range/Units 07:25 07:28 11:43 RBC (4.10-5.20) X 10*6/uL Hgb (12.0-15.0) g/dL Hct (37.2-46.3) % MPV (9.5-12.2) fL Immature Gran # (0.00-0.04) X 10*3/uL Lymphocytes # (0.90-5.00) X 10*3/uL PT 13.0 H (9.9-11.9) sec INR 1.21 H (0.90-1.11) Carbon Dioxide (21.6-31.8) mmol/L BUN (9.0-27.0) mg/dL Est GFR (CKD-EPI)AfAm (60.0-200.0) Est GFR (CKD-EPI)NonAf (60.0-200.0) BUN/Creatinine Ratio (12.00-20.00) Ratio Glucose (70-110) mg/dL POC Glucose (mg/dL) 148 H 207 H (75-99) mg/dL Total Protein (6.2-8.2) g/dL Albumin (3.80-4.90) g/dL Albumin (PEP) (3.80-4.90) g/dL Albumin/Globulin Ratio (1.60-3.17) g/dL Ssyzp-3-Rsamephrn (0.10-0.40) g/dL Onshf-1-Ksittijrm (0.60-1.00) g/dL Beta Globulins (0.60-1.30) g/dL Vitamin B12 (200.0-944.0) pg/mL Free [place] LC, Quant (0.33-1.94) mg/dL Free Lambda LC, Quant (0.57-2.63) mg/dL Microbiology - Last 24 Hours (Table) 01/17/21 04:25 Blood Culture - Preliminary Blood No Growth after 48 hours Assessment and Plan Assessment: 1. Fall with knee pain. Knee pain x-ray negative for fracture. PT OT and social work services consulted for discharge planning 2. Urinary tract infection. Urine culture ordered. Patient started on Rocephin 3. Leukocytosis. WBC continue to elevate at 24.5. Hematology service is consulted. Chest x-ray urine culture and blood culture ordered 4. Altered mental status changes. Given patient's history of CVA and Coumadin use will order head CT 5. Acute kidney injury. Patient maintained on normal saline at 75 repeat labs ordered. Patient's metformin Lasix currently on hold 6. History of CVA 7. History of chronic systolic CHF. Patient's Lasix currently on hold due to acute kidney injury 8. History of atrial fibrillation. She is maintained on Coumadin 9. Essential hypertension 10. Diabetes mellitus type 2. Continue sliding scale coverage DVT prophylaxis Coumadin and SCDs. Coumadin on hold until head CT completed. GI prophylaxis Protonix Head CT ordered Chest x-ray, urine culture and blood culture ordered Hematology consulted for leukocytosis Continue normal saline at 75 Repeat labs ordered
[2021-01-19 17:45] LABS: Glucose,Whole Blood 198 mg/dL (75-99)
[2021-01-19] MEDS ORDERED: WARFARIN 3 MG TAB PO ONE (18:00)
[2021-01-19 20:29] LABS: Glucose,Whole Blood 161 mg/dL (75-99)
[2021-01-19 21:23] LABS: Folate, Serum 6.2 ng/mL
[2021-01-19] MEDS: MONTELUKAST 10 MG TAB PO SCH (21:50)
[2021-01-19] MEDS: ATORVASTATIN 10 MG TAB PO SCH (21:50)
[2021-01-20 07:29] LABS: Glucose,Whole Blood 132 mg/dL (75-99)
[2021-01-20 08:40] LABS: INR 1.3 (<1.2); Prothrombin Time 13.6 sec (9.0-12.0)
[2021-01-20] MEDS: carvediloL 12.5 MG TAB PO SCH ×2 (09:38→18:25)
[2021-01-20] MEDS: MAGNESIUM OXIDE 400 MG TAB PO SCH (09:38)
[2021-01-20] MEDS: LOSARTAN 50 MG TAB PO SCH (09:38)
[2021-01-20] MEDS: CYANOCOBALAMIN 500 MCG TAB PO SCH (09:38)
[2021-01-20] MEDS: FERROUS SULFATE 325 MG TAB PO SCH ×2 (09:39→20:29)
[2021-01-20] MEDS: PANTOPRAZOLE 40 MG TABLET PO SCH (09:39)
[2021-01-20] MEDS: CHOLECALCIFEROL 25 MCG (1000 IU) TABLET PO SCH (09:40)
[2021-01-20] MEDS: CALCIUM CARBONATE 500 MG CHEWABLE PO SCH (09:40)
[2021-01-20] MEDS: ENOXAPARIN 30 MG/0.3 ML SYRINGE SQ SCH (09:41)
[2021-01-20] MEDS: glipiZIDE 10 MG TAB PO SCH ×2 (09:41→20:29)
[2021-01-20] MEDS: INSULIN ASPART (NovoLOG) 100 UNIT/ML VIAL SQ SCH ×4 (09:45→20:41)
[2021-01-20 11:43] VITALS: BMI 30.7
[2021-01-20 12:23] LABS: Glucose,Whole Blood 168 mg/dL (75-99)
[2021-01-20] MEDS: SODIUM CHLORIDE 0.9% 1,000 ML IV SCH (12:53)
[2021-01-20] MEDS: VITAMIN E (DL,TOCOPHERYL ACET) 400 UNIT (180 MG) CAP PO SCH (12:53)
--- NOTE | 2021-01-20 17:12 | P.PN ---
Subjective Progress Note Date: 01/20/21 This is a 80-year-old female patient who presented to the ER with concerns of fall with right knee pain. Per ER report patient denies hitting her head. Patient is also confused no family currently at bedside but per nursing staff patient is normally alert and oriented 3 . Patient has a past medical history of atrial fibrillation in which he is on Coumadin CVA and hypertension. X-ray of knee completed showing intact arthroplasty hardware generalized osteopenia no acute fracture dislocation seen. Trace joint effusion vascular calcium medications noted increased compared to prior. Urinary analysis positive for UTI. Patient has been started on Rocephin. White blood cell increasing to 24.51 despite antibiotic. Will consult oncology services in order chest x-ray blood culture and urine culture. Also concerns in regards altered mental status changes will order head CT given patient's history of CVA and on Coumadin. INR is currently therapeutic. Creatinine elevated at 1.67 and bun 40. Will increase fluids to 75. At this time patient is complaining of generalized pain unable to specify. Patient denies chest pain. Patient does deny shortness of breath. Patient denies any nausea vomiting or diarrhea. On 01/17/2021 Patient was seen and examined on the medical floor, he is alert and oriented x 3 in no distress, he denies any complaints there is no fever or chills no headache or dizziness no chest pain no shortness of breath no palpitation no cough no nausea or vomiting no abdominal pain no diarrhea no blood in the stools no burning with urination no frequency or urgency and no hematuria, there is no weakness or numbness in any of the extremities no change in vision speech or gait. Patient is more alert today continue with current medications will follow in a.m. On 01/18/2021 Patient was seen and examined on the medical floor, he is alert and oriented x 3 in no distress, he denies any complaints there is no fever or chills no headache or dizziness no chest pain no shortness of breath no palpitation no cough no nausea or vomiting no abdominal pain no diarrhea no blood in the stools no burning with urination no frequency or urgency and no hematuria, there is no weakness or numbness in any of the extremities no change in vision speech. Patient is still having pain in the right knee area and having significant difficulty with her gait. On 01/19/2021 patient was seen and examined on the medical floor she is alert and oriented 3 in no apparent distress she is still complaining of severe weakness and pain in her right knee she is having difficulty standing up and walking, otherwise she denies any complaints there is no fever or chills no headache or dizziness no chest pain no shortness of breath no palpitation no cough no nausea or vomiting no abdominal pain no diarrhea no blood in the stools no burning with urination no frequency or urgency and no hematuria, there is no weakness or numbness in any of the extremities no change in vision speech. On 01/20/2021 Patient was seen and examined on the medical floor, he is alert and oriented x 3 in no distress, he denies any complaints there is no fever or chills no headache or dizziness no chest pain no shortness of breath no palpitation no cough no nausea or vomiting no abdominal pain no diarrhea no blood in the stools no burning with urination no frequency or urgency and no hematuria, there is no weakness or numbness in any of the extremities no change in vision speech. Patient is still having pain in the right knee area and having significant difficulty with her gait due to knee pain and weakness. Objective - Vital Signs Vital signs: Vital Signs Temp 98.5 F 01/20/21 07:07 Pulse 70 01/20/21 08:00 Resp 18 01/20/21 08:00 BP 122/76 01/20/21 07:07 Pulse Ox 98 01/20/21 07:07 Intake & Output 01/19/21 01/20/21 01/20/21 18:59 06:59 18:59 Intake Total 120 Output Total 700 Balance -700 120 Intake: Oral 120 Output: Urine 700 Other: Voiding Method Indwelling Catheter Indwelling Catheter # Voids 300 # Bowel Movements 1 - Exam Head normocephalic Neck supple Lungs clear to auscultation bilaterally no wheezing or crackles Heart regular rate and rhythm S1-S2, no rub or gallop Abdomen is soft nontender nondistended positive bowel sounds no hepatosplenomegaly Extremities no edema Neuro alert and orientated to 1. Patient appears to be a poor historian - Labs CBC & Chem 7: 01/19/21 07:21 01/19/21 07:21 Labs: Abnormal Lab Results - Last 24 Hours (Table) 01/17/21 01/19/21 01/19/21 Range/Units 18:00 07:21 07:21 RBC 2.96 L (4.10-5.20) X 10*6/uL Hgb 8.8 L (12.0-15.0) g/dL Hct 27.5 L (37.2-46.3) % MPV 13.9 H (9.5-12.2) fL Immature Gran # 0.15 H (0.00-0.04) X 10*3/uL Lymphocytes # 0.82 L (0.90-5.00) X 10*3/uL ESR 66 H (0-30) mm/Hr PT (9.9-11.9) sec INR (0.90-1.11) Carbon Dioxide 19.1 L (21.6-31.8) mmol/L BUN 42.0 H (9.0-27.0) mg/dL Est GFR (CKD-EPI)AfAm 40.7 L (60.0-200.0) Est GFR (CKD-EPI)NonAf 35.1 L (60.0-200.0) BUN/Creatinine Ratio 30.00 H (12.00-20.00) Ratio Glucose 138 H (70-110) mg/dL POC Glucose (mg/dL) (75-99) mg/dL Total Protein 5.8 L (6.2-8.2) g/dL Albumin 3.10 L (3.80-4.90) g/dL Albumin (PEP) 3.30 L (3.80-4.90) g/dL Albumin/Globulin Ratio 1.15 L (1.60-3.17) g/dL Brjyd-8-Rfuyaczru 0.45 H (0.10-0.40) g/dL Hhdow-8-Omaxojhgr 1.20 H (0.60-1.00) g/dL Beta Globulins 1.31 H (0.60-1.30) g/dL Free [place] LC, Quant 13.13 H (0.33-1.94) mg/dL Free Lambda LC, Quant 4.49 H (0.57-2.63) mg/dL 01/19/21 01/19/21 01/19/21 Range/Units 07:28 11:43 17:44 RBC (4.10-5.20) X 10*6/uL Hgb (12.0-15.0) g/dL Hct (37.2-46.3) % MPV (9.5-12.2) fL Immature Gran # (0.00-0.04) X 10*3/uL Lymphocytes # (0.90-5.00) X 10*3/uL ESR (0-30) mm/Hr PT 13.0 H (9.9-11.9) sec INR 1.21 H (0.90-1.11) Carbon Dioxide (21.6-31.8) mmol/L BUN (9.0-27.0) mg/dL Est GFR (CKD-EPI)AfAm (60.0-200.0) Est GFR (CKD-EPI)NonAf (60.0-200.0) BUN/Creatinine Ratio (12.00-20.00) Ratio Glucose (70-110) mg/dL POC Glucose (mg/dL) 207 H 198 H (75-99) mg/dL Total Protein (6.2-8.2) g/dL Albumin (3.80-4.90) g/dL Albumin (PEP) (3.80-4.90) g/dL Albumin/Globulin Ratio (1.60-3.17) g/dL Gkjsc-3-Nshvogvpc (0.10-0.40) g/dL Dqmfh-7-Wfohwlpxx (0.60-1.00) g/dL Beta Globulins (0.60-1.30) g/dL Free [place] LC, Quant (0.33-1.94) mg/dL Free Lambda LC, Quant (0.57-2.63) mg/dL 01/19/21 01/20/21 01/20/21 Range/Units 20:28 07:09 07:49 RBC (4.10-5.20) X 10*6/uL Hgb (12.0-15.0) g/dL Hct (37.2-46.3) % MPV (9.5-12.2) fL Immature Gran # (0.00-0.04) X 10*3/uL Lymphocytes # (0.90-5.00) X 10*3/uL ESR (0-30) mm/Hr PT 13.6 H (9.9-11.9) sec INR 1.3 H (0.90-1.11) Carbon Dioxide (21.6-31.8) mmol/L BUN (9.0-27.0) mg/dL Est GFR (CKD-EPI)AfAm (60.0-200.0) Est GFR (CKD-EPI)NonAf (60.0-200.0) BUN/Creatinine Ratio (12.00-20.00) Ratio Glucose (70-110) mg/dL POC Glucose (mg/dL) 161 H 132 H (75-99) mg/dL Total Protein (6.2-8.2) g/dL Albumin (3.80-4.90) g/dL Albumin (PEP) (3.80-4.90) g/dL Albumin/Globulin Ratio (1.60-3.17) g/dL Eaowx-4-Jpkukqhdj (0.10-0.40) g/dL Eqemr-0-Pcmxviedg (0.60-1.00) g/dL Beta Globulins (0.60-1.30) g/dL Free [place] LC, Quant (0.33-1.94) mg/dL Free Lambda LC, Quant (0.57-2.63) mg/dL Microbiology - Last 24 Hours (Table) 01/17/21 04:25 Blood Culture - Preliminary Blood No Growth after 72 hours Assessment and Plan Assessment: 1. Fall with knee pain. Knee pain x-ray negative for fracture. PT OT and social work services consulted for discharge planning 2. Urinary tract infection. Urine culture ordered. Patient started on Rocephin 3. Leukocytosis. WBC continue to elevate at 24.5. Hematology service is consulted. Chest x-ray urine culture and blood culture ordered 4. Altered mental status changes. Given patient's history of CVA and Coumadin use will order head CT 5. Acute kidney injury. Patient maintained on normal saline at 75 repeat labs ordered. Patient's metformin Lasix currently on hold 6. History of CVA 7. History of chronic systolic CHF. Patient's Lasix currently on hold due to acute kidney injury 8. History of atrial fibrillation. She is maintained on Coumadin 9. Essential hypertension 10. Diabetes mellitus type 2. Continue sliding scale coverage DVT prophylaxis Coumadin and SCDs. Coumadin on hold until head CT completed. GI prophylaxis Protonix Head CT ordered Chest x-ray, urine culture and blood culture ordered Hematology consulted for leukocytosis Continue normal saline at 75 Repeat labs ordered
--- NOTE | 2021-01-20 17:46 | PN ---
PROGRESS NOTE DATE OF SERVICE: 01/20/2021 REASON FOR FOLLOWUP: Klebsiella UTI and bacteremia. INTERVAL HISTORY: The patient is afebrile. The patient is breathing comfortably. Patient denies having any chest pain or shortness of breath or cough. No abdominal pain or diarrhea. PHYSICAL EXAMINATION: Blood pressure 146/75, pulse of 78, temperature 99.8. She is 95% on room air. General description is an elderly female lying in bed in no distress. Respiratory system: Unlabored breathing, clear to auscultation anteriorly. Heart S1, S2. Regular rate and rhythm. Abdomen soft, no tenderness. LABS: Repeat blood culture has been negative. DIAGNOSTIC IMPRESSION AND PLAN: Patient with Klebsiella urinary tract infection and bacteremia. The patient has clinically responded to Rocephin to continue while inpatient. Transition to oral Cipro on discharge to finish a course of therapy. Continue supportive care. MMODL / YADIELN: [id number] /
[2021-01-20] MEDS ORDERED: WARFARIN 3 MG TAB PO ONE (18:00)
[2021-01-20] MEDS: ATORVASTATIN 10 MG TAB PO SCH (20:29)
[2021-01-20] MEDS: MONTELUKAST 10 MG TAB PO SCH (20:30)
[2021-01-20 20:37] LABS: Glucose,Whole Blood 284 mg/dL (75-99)
[2021-01-21] MEDS: SODIUM CHLORIDE 0.9% 1,000 ML IV SCH (04:08)
[2021-01-21 06:38] LABS: INR 1.5 (<1.2); Prothrombin Time 15.3 sec (9.0-12.0)
[2021-01-21 07:38] LABS: Glucose,Whole Blood 246 mg/dL (75-99)
[2021-01-21 08:06] VITALS: BP 126/64; PULSE 70; RESP 16; TEMP 98
[2021-01-21] MEDS: FERROUS SULFATE 325 MG TAB PO SCH (08:14)
[2021-01-21] MEDS: ENOXAPARIN 30 MG/0.3 ML SYRINGE SQ SCH (08:14)
[2021-01-21] MEDS: INSULIN ASPART (NovoLOG) 100 UNIT/ML VIAL SQ SCH ×2 (08:14→13:02)
[2021-01-21] MEDS: CHOLECALCIFEROL 25 MCG (1000 IU) TABLET PO SCH (08:14)
[2021-01-21] MEDS: carvediloL 12.5 MG TAB PO SCH (08:14)
[2021-01-21] MEDS: CYANOCOBALAMIN 500 MCG TAB PO SCH (08:15)
[2021-01-21] MEDS: PANTOPRAZOLE 40 MG TABLET PO SCH (08:15)
[2021-01-21] MEDS: glipiZIDE 10 MG TAB PO SCH (08:15)
[2021-01-21] MEDS: LOSARTAN 50 MG TAB PO SCH (08:15)
[2021-01-21] MEDS: MAGNESIUM OXIDE 400 MG TAB PO SCH (08:15)
[2021-01-21 12:59] LABS: Glucose,Whole Blood 177 mg/dL (75-99)
[2021-01-21] MEDS: CALCIUM CARBONATE 500 MG CHEWABLE PO SCH (13:02)
[2021-01-21] MEDS: VITAMIN E (DL,TOCOPHERYL ACET) 400 UNIT (180 MG) CAP PO SCH (13:02)
--- NOTE | 2021-01-21 13:27 | P.DS ---
Providers Date of admission: 01/18/21 15:18 Expected date of discharge: 01/21/21 Attending physician: Tori Barney Consults: 01/16/21 11:19 Consult Physician Routine Consulting Provider: Pete Lucio Consult Reason/Comments: Leukocytosis Do you want consulting provider notified?: Yes 01/16/21 11:41 Consult Physician Routine Consulting Provider: Annelise Robb Consult Reason/Comments: sepsis Do you want consulting provider notified?: Yes 01/16/21 14:21 Consult Physician Routine Consulting Provider: Anand Mayfield Consult Reason/Comments: brain CT results, falls, AMS Do you want consulting provider notified?: Yes 01/18/21 08:11 Consult Physician Routine Consulting Provider: Pelon Salcedo Consult Reason/Comments: right knee pain Do you want consulting provider notified?: Yes 01/18/21 17:01 Consult Physician Routine Consulting Provider: Goyo Camacho Consult Reason/Comments: Knee pain gait disturbance Do you want consulting provider notified?: Yes Primary care physician: Miranda Thompson Hospital Course: Diagnosis on discharge: 1. Fall with knee pain. Knee pain x-ray negative for fracture. PT OT and social work services consulted for discharge planning 2. Urinary tract infection. Urine culture ordered. Patient started on Rocephin 3. Leukocytosis. WBC continue to elevate at 24.5. Hematology service is consulted. Chest x-ray urine culture and blood culture ordered 4. Altered mental status changes. Given patient's history of CVA and Coumadin use will order head CT 5. Acute kidney injury. Patient maintained on normal saline at 75 repeat labs ordered. Patient's metformin Lasix currently on hold 6. History of CVA 7. History of chronic systolic CHF. Patient's Lasix currently on hold due to acute kidney injury 8. History of atrial fibrillation. She is maintained on Coumadin 9. Essential hypertension 10. Diabetes mellitus type 2. Continue sliding scale coverage Hospital course: This is a 80-year-old female patient who presented to the ER with concerns of fall with right knee pain. Per ER report patient denies hitting her head. Patient is also confused no family currently at bedside but per nursing staff patient is normally alert and oriented 3 . Patient has a past medical history of atrial fibrillation in which he is on Coumadin CVA and hypertension. X-ray of knee completed showing intact arthroplasty hardware generalized osteopenia no acute fracture dislocation seen. Trace joint effusion vascular calcium medications noted increased compared to prior. Urinary analysis positive for UTI. Patient has been started on Rocephin. White blood cell increasing to 24.51 despite antibiotic. Will consult oncology services in order chest x-ray blood culture and urine culture. Also concerns in regards altered mental status changes will order head CT given patient's history of CVA and on Coumadin. INR is currently therapeutic. Creatinine elevated at 1.67 and bun 40. Will increase fluids to 75. At this time patient is complaining of generalized pain unable to specify. Patient denies chest pain. Patient does deny shortness of breath. Patient denies any nausea vomiting or diarrhea. On 01/17/2021 Patient was seen and examined on the medical floor, he is alert and oriented x 3 in no distress, he denies any complaints there is no fever or chills no headache or dizziness no chest pain no shortness of breath no palpitation no cough no nausea or vomiting no abdominal pain no diarrhea no blood in the stools no burning with urination no frequency or urgency and no hematuria, there is no weakness or numbness in any of the extremities no change in vision speech or gait. Patient is more alert today continue with current medications will follow in a.m. On 01/18/2021 Patient was seen and examined on the medical floor, he is alert and oriented x 3 in no distress, he denies any complaints there is no fever or chills no headache or dizziness no chest pain no shortness of breath no palpitation no cough no nausea or vomiting no abdominal pain no diarrhea no blood in the stools no burning with urination no frequency or urgency and no hematuria, there is no weakness or numbness in any of the extremities no change in vision speech. Patient is still having pain in the right knee area and having significant difficulty with her gait. On 01/19/2021 patient was seen and examined on the medical floor she is alert and oriented 3 in no apparent distress she is still complaining of severe weakness and pain in her right knee she is having difficulty standing up and walking, otherwise she denies any complaints there is no fever or chills no headache or dizziness no chest pain no shortness of breath no palpitation no cough no nausea or vomiting no abdominal pain no diarrhea no blood in the stools no burning with urination no frequency or urgency and no hematuria, there is no weakness or numbness in any of the extremities no change in vision speech. On 01/20/2021 Patient was seen and examined on the medical floor, he is alert and oriented x 3 in no distress, he denies any complaints there is no fever or chills no headache or dizziness no chest pain no shortness of breath no palpitation no cough no nausea or vomiting no abdominal pain no diarrhea no blood in the stools no burning with urination no frequency or urgency and no hematuria, there is no weakness or numbness in any of the extremities no change in vision speech. Patient is still having pain in the right knee area and having significant difficulty with her gait due to knee pain and weakness. On 01/21/2021 Patient was seen and examined on the medical floor, he is alert and oriented x 3 in no distress, he denies any complaints there is no fever or chills no headache or dizziness no chest pain no shortness of breath no palpitation no cough no nausea or vomiting no abdominal pain no diarrhea no blood in the stools no burning with urination no frequency or urgency and no hematuria, there is no weakness or numbness in any of the extremities no change in vision speech or gait. Patient is improving gradually at this time will discontinue IV antibiotic and start oral Ceftin, patient can be discharged to alf for rehabilitation Patient Condition at Discharge: Stable Plan - Discharge Summary Discharge Rx Participant: No New Discharge Prescriptions: New Acetaminophen Tab [Tylenol] 500 mg PO Q4HR PRN tab PRN Reason: Fever And/ Or Pain Cefuroxime Axetil [Ceftin] 500 mg PO BID 7 Days #14 tab Warfarin [Coumadin] 5 mg PO DAILY 30 Days #30 tab Pantoprazole [Protonix] 40 mg PO AC-BRKFST tab Continue Magnesium Oxide [Mag-Ox] 250 mg PO DAILY Vitamin E (Dl,Tocopheryl Acet) [Vitamin E (400 Iu = 180 mg)] 400 unit PO DAILY@1200 Cholecalciferol [Vitamin D3 (25 Mcg = 1000 Iu)] 5,000 unit PO DAILY Carvedilol [Coreg] 25 mg PO BID Atorvastatin [Lipitor] 10 mg PO HS tab Calcium Carbonate [Calcium] 600 mg PO DAILY@1200 Cyanocobalamin [Vitamin B-12] 500 mcg PO DAILY Cranberry Fruit Extract [Cranberry] 500 mg PO DAILY Montelukast [Singulair] 10 mg PO HS #30 tab Ferrous Sulfate [Iron (65 MG Elemental)] 325 mg PO BID #60 tab glipiZIDE [Glucotrol] 10 mg PO BID Losartan Potassium [Cozaar] 50 mg PO DAILY Discontinued metFORMIN HCL [Glucophage] 500 mg PO TID Warfarin Sodium 3 mg PO SUTUTH Warfarin [Coumadin] 6 mg PO MOWEFRSA Furosemide [Lasix] 40 mg PO DAILY Discharge Medication List Carvedilol [Coreg] 25 mg PO BID 05/08/17 [History] Cholecalciferol [Vitamin D3 (25 Mcg = 1000 Iu)] 5,000 unit PO DAILY 05/08/17 [History] Magnesium Oxide [Mag-Ox] 250 mg PO DAILY 05/08/17 [History] Vitamin E (Dl,Tocopheryl Acet) [Vitamin E (400 Iu = 180 mg)] 400 unit PO DAILY@1200 05/08/17 [History] Atorvastatin [Lipitor] 10 mg PO HS tab 05/11/17 [Rx] Calcium Carbonate [Calcium] 600 mg PO DAILY@1200 08/07/18 [History] Cyanocobalamin [Vitamin B-12] 500 mcg PO DAILY 08/07/18 [History] Cranberry Fruit Extract [Cranberry] 500 mg PO DAILY 01/29/19 [History] Ferrous Sulfate [Iron (65 MG Elemental)] 325 mg PO BID #60 tab 02/03/19 [Rx] Montelukast [Singulair] 10 mg PO HS #30 tab 02/03/19 [Rx] Losartan Potassium [Cozaar] 50 mg PO DAILY 01/15/21 [History] glipiZIDE [Glucotrol] 10 mg PO BID 01/15/21 [History] Acetaminophen Tab [Tylenol] 500 mg PO Q4HR PRN tab 01/21/21 [Rx] Cefuroxime Axetil [Ceftin] 500 mg PO BID 7 Days #14 tab 01/21/21 [Rx] Pantoprazole [Protonix] 40 mg PO AC-BRKFST tab 01/21/21 [Rx] Warfarin [Coumadin] 5 mg PO DAILY 30 Days #30 tab 01/21/21 [Rx] Follow up Appointment(s)/Referral(s): Miranda Thompson MD [Primary Care Provider] - 1-2 days
--- NOTE | 2021-01-21 14:17 | PN ---
PROGRESS NOTE DATE OF SERVICE: 01/21/2021 REASON FOR FOLLOWUP: Klebsiella UTI and bacteremia. INTERVAL HISTORY: The patient is afebrile. The patient is breathing comfortably. The patient denies having any chest pain, shortness of breath or cough. No nausea, no vomiting. No abdominal pain or diarrhea. PHYSICAL EXAMINATION: Blood pressure 126/64, pulse of 70, temperature 98. She is 98% on room air. GENERAL DESCRIPTION: General description is an elderly female up in the chair in no distress. RESPIRATORY SYSTEM: Unlabored breathing. Clear to auscultation anteriorly. HEART: S1, S2. Regular rate and rhythm. ABDOMEN: Soft. No tenderness. LABS: INR is 1.5. DIAGNOSTIC THE PATIENT: Patient with Klebsiella urinary tract infection and bacteremia. Repeat blood culture has been negative. The patient seems to have shown overall clinical improvement on Rocephin; to finish therapy with oral Cipro for another 7-10 days and close outpatient followup. MMODL / IJN: [id number] /
[2021-01-21] MEDS ORDERED: WARFARIN 7.5 MG TAB PO ONE (18:00)
--- NOTE | 2021-01-25 08:49 | CDI ---
Documentation Clarification Form Date: 01/25/2021 08:40:55 AM From: Hossein Hernadez Admit Date: 01/18/2021 03:18:00 PM Patient Name: Moriah Tong Visit Number: [id number] Discharge Date: 01/21/2021 03:18:00 PM ATTENTION: The Clinical Documentation Specialists (CDI) and [facility] Coding Staff appreciate your assistance in clarifying documentation. Please respond to the clarification below the line at the bottom and electronically sign. The CDI & [facility] Coding staff will review the response and follow-up if needed. Please note: Queries are made part of the Legal Health Record. If you have any questions, please contact the author of this message via ITS. Dr. Tori Barney The patient presented with the following clinical indicators. Additional clarification regarding the etiology/cause of the clinical indicators is requested. Discharge summary indicates a consult for sepsis but does not list sepsis as final dx. PN 9/10 indicates bacteremia. Need to determine if sepsis was ruled out to establish principle dx. History/Risk Factors: UTI, bacteremia Clinical Indicators: WBC: 16.7 Blood cultures: bacteremia Vitals signs: BP 152/60, Temp 98.4, resp 16 Treatment: ID Consult: Antibiotics: Rocepin IV Bolus: In your professional opinion, please clarify if these findings signify one of the following conditions: [ x ] Sepsis POA [ ] Sepsis, Not POA [ ] Sepsis ruled out. Bacteremia only. [ ] SIRS, without underlying infectious process [ ] Other, please specify [ ] Unable to determine SIRS Criteria: 2 or more of the following may indicate SIRS -Temperature < 96.8F (36C) or > 101.0F (38.3C) -Heart Rate > 90 bpm -Respiratory Rate > 20 breaths/min or PaCO2 < 32 mmHg -White Blood Cell Count > 12,000 or < 4,000 cells/mm3 or > 10% bands MTDD
== END 2021-01-21 15:18 | disposition home or self-care (01) | DRG 871 ==
LOC: EC 12:32 → 6NMEDSUR 15:55 → OBSVTOIN 01-18 15:18 → 6NMEDSUR 01-18 23:49
PROVIDERS: ADMIT Internal Medicine; ATTEND Internal Medicine
DX: A41.59 Other Gram-negative sepsis (principal); G93.41 Metabolic encephalopathy; N39.0 Urinary tract infection, site not specified; I50.22 Chronic systolic (congestive) heart failure; N17.9 Acute kidney failure, unspecified; I13.0 Hypertensive heart and chronic kidney disease with heart failure and stage 1 through stage 4 chronic kidney disease, or unspecified chronic kidney disease; M25.561 Pain in right knee; I48.91 Unspecified atrial fibrillation; J45.909 Unspecified asthma, uncomplicated; M19.90 Unspecified osteoarthritis, unspecified site; N18.9 Chronic kidney disease, unspecified; W19.XXXA Unspecified fall, initial encounter; Y92.009 Unspecified place in unspecified non-institutional (private) residence as the place of occurrence of the external cause; Z86.73 Personal history of transient ischemic attack (TIA), and cerebral infarction without residual deficits; I35.8 Other nonrheumatic aortic valve disorders; M85.80 Other specified disorders of bone density and structure, unspecified site; D69.6 Thrombocytopenia, unspecified; E11.22 Type 2 diabetes mellitus with diabetic chronic kidney disease; E83.52 Hypercalcemia; D64.9 Anemia, unspecified; Z79.01 Long term (current) use of anticoagulants; Z79.84 Long term (current) use of oral hypoglycemic drugs; Z79.899 Other long term (current) drug therapy; Z80.0 Family history of malignant neoplasm of digestive organs; Z80.41 Family history of malignant neoplasm of ovary; Z80.6 Family history of leukemia; Z82.49 Family history of ischemic heart disease and other diseases of the circulatory system; Z96.651 Presence of right artificial knee joint; Z88.0 Allergy status to penicillin; Z88.6 Allergy status to analgesic agent; Z91.041 Radiographic dye allergy status; Z95.0 Presence of cardiac pacemaker
CPT/HCPCS: 36415; 70450; 71046; 76700; 80053; 81001; 82306; 82607; 82728; 82746; 83540; 83550; 83605; 83883; 83970; 84165; 85025; 85610; 85652; 85730; 86140; 86334; 87040; 87077; 87086; 87186; 93880; 96365; 96375; 99285

== ENCOUNTER 2021-05-24 01:45 | Inpatient (IN) | payer MEDICARE ==
[2021-05-24] MEDS ORDERED: KETOROLAC 15 MG/ML 1 ML VIAL IVP STA (02:40)
[2021-05-24] MEDS ORDERED: MORPHINE SULFATE 4 MG/ML SYRINGE IV STA (02:40)
[2021-05-24] MEDS ORDERED: SODIUM CHLORIDE 0.9% 1,000 ML IV STA ×2 (02:40)
--- NOTE | 2021-05-24 02:45 | ED ---
Weakness HPI - General Chief complaint: Extremity Problem,Nontraumatic Stated complaint: Leg Pain Time Seen by Provider: 05/24/21 01:51 Source: EMS, RN notes reviewed, old records reviewed Mode of arrival: EMS Limitations: no limitations - History of Present Illness Initial comments: This is an 80-year-old female presenting today for evaluation she has history of for weakness severe leg pain and inability to ambulate. Inability to move legs. This is been of acute on chronic issue for this patient and the passages related urinary tract infections. No trauma no other complaints no fevers no nausea no vomiting no diarrhea or abdominal pain. No recent change in medications MD Complaint: generalized weakness, difficulty walking -: days(s) Location: generalized Severity: severe Severity scale (1-10): 8 Quality: tingling, aching, sharp Consistency: constant Improves with: none Worsens with: none Context: recent illness, history of similar Associated Symptoms: denies other symptoms - Related Data Home Medications Medication Instructions Recorded Confirmed Carvedilol [Coreg] 25 mg PO BID 05/08/17 01/15/21 Cholecalciferol [Vitamin D3 (25 5,000 unit PO DAILY 05/08/17 01/15/21 Mcg = 1000 Iu)] Magnesium Oxide [Mag-Ox] 250 mg PO DAILY 05/08/17 01/15/21 Vitamin E (Dl,Tocopheryl Acet) 400 unit PO DAILY@1200 05/08/17 01/15/21 [Vitamin E (400 Iu = 180 mg)] Calcium Carbonate [Calcium] 600 mg PO DAILY@1200 08/07/18 01/15/21 Cyanocobalamin [Vitamin B-12] 500 mcg PO DAILY 08/07/18 01/15/21 Cranberry Fruit Extract [Cranberry] 500 mg PO DAILY 01/29/19 01/15/21 Losartan Potassium [Cozaar] 50 mg PO DAILY 01/15/21 01/15/21 glipiZIDE [Glucotrol] 10 mg PO BID 01/15/21 01/15/21 Previous Rx's Medication Instructions Recorded Atorvastatin [Lipitor] 10 mg PO HS tab 05/11/17 Ferrous Sulfate [Iron (65 MG 325 mg PO BID #60 tab 02/03/19 Elemental)] Montelukast [Singulair] 10 mg PO HS #30 tab 02/03/19 Acetaminophen Tab [Tylenol] 500 mg PO Q4HR PRN tab 01/21/21 Cefuroxime Axetil [Ceftin] 500 mg PO BID 7 Days #14 tab 01/21/21 Pantoprazole [Protonix] 40 mg PO AC-BRKFST tab 01/21/21 Warfarin [Coumadin] 5 mg PO DAILY 30 Days #30 tab 01/21/21 Allergies Allergy/AdvReac Type Severity Reaction Status Date / Time influenza virus vaccine qs Allergy Unknown Unknown Verified 05/24/21 02:12 2016- (36 months up) [From Fluarix Quad 9689-4491 (PF)] aspirin Allergy Unknown Verified 05/24/21 02:12 Penicillins Allergy Rash/Hives Verified 05/24/21 02:12 radish Allergy Rash/Hives Verified 05/24/21 02:12 red dye Allergy Unknown Verified 05/24/21 02:12 Review of Systems ROS Statement: Those systems with pertinent positive or pertinent negative responses have been documented in the HPI. ROS Other: All systems not noted in ROS Statement are negative. Past Medical History Past Medical History: Atrial Fibrillation, CVA/TIA, Hypertension Additional Past Medical History / Comment(s): Stroke x 2- PACEMAKER History of Any Multi-Drug Resistant Organisms: None Reported Past Surgical History: Appendectomy, Cholecystectomy, Orthopedic Surgery, Tonsillectomy Additional Past Surgical History / Comment(s): pt. states shes had two knee surgeries Past Anesthesia/Blood Transfusion Reactions: No Reported Reaction Past Psychological History: Depression Smoking Status: Never smoker Past Alcohol Use History: None Reported Past Drug Use History: None Reported - Past Family History Son(s) Family Medical History: Myocardial Infarction ([place]) General Exam Limitations: no limitations General appearance: alert, in no apparent distress Head exam: Present: atraumatic, normocephalic, normal inspection Eye exam: Present: normal appearance, PERRL, EOMI. Absent: scleral icterus, conjunctival injection, periorbital swelling ENT exam: Present: normal exam, mucous membranes moist Neck exam: Present: normal inspection. Absent: tenderness, meningismus, lymphadenopathy Respiratory exam: Present: normal lung sounds bilaterally. Absent: respiratory distress, wheezes, rales, rhonchi, stridor Cardiovascular Exam: Present: regular rate, normal rhythm, normal heart sounds. Absent: systolic murmur, diastolic murmur, rubs, gallop, clicks GI/Abdominal exam: Present: soft, normal bowel sounds. Absent: distended, tenderness, guarding, rebound, rigid Extremities exam: Present: normal inspection, full ROM, normal capillary refill. Absent: tenderness, pedal edema, joint swelling, calf tenderness Back exam: Present: normal inspection Neurological exam: Present: alert, oriented X3, CN II-XII intact Psychiatric exam: Present: normal affect, normal mood Skin exam: Present: warm, dry, intact, normal color. Absent: rash Course Vital Signs 05/24/21 05/24/21 02:10 04:47 Temperature 98.7 F 98.9 F Pulse Rate 72 70 Respiratory 18 18 Rate Blood Pressure 152/46 120/58 O2 Sat by Pulse 97 96 Oximetry - Reevaluation(s) Reevaluation #1: 05/24/21 04:37 Medical record is reviewed Reevaluation #2: 05/24/21 06:04 Is still has bilateral leg weakness Reevaluation #3: 05/24/21 06:04 Patient pain is improved - Consultations Consultation #1: Spoke with Dr. Barney and renuka for admission Medical Decision Making - Medical Decision Making 80 female to the emergency department for evaluation. Patient be admitted for treatment of urinary tract infection significant hematuria and leg pain. Weakness. History of same - Lab Data Result diagrams: 05/24/21 03:53 05/24/21 03:53 Lab Results 05/24/21 05/24/21 Range/Units 03:53 03:53 WBC 7.1 (3.8-10.6) k/uL RBC 3.44 L (3.80-5.40) m/uL Hgb 9.9 L (11.4-16.0) gm/dL Hct 30.8 L (34.0-46.0) % MCV 89.4 (80.0-100.0) fL MCH 28.8 (25.0-35.0) pg MCHC 32.2 (31.0-37.0) g/dL RDW 15.3 (11.5-15.5) % Plt Count 167 (150-450) k/uL MPV 10.0 Neutrophils % 80 % Lymphocytes % 10 % Monocytes % 8 % Eosinophils % 1 % Basophils % 0 % Neutrophils # 5.6 (1.3-7.7) k/uL Lymphocytes # 0.7 L (1.0-4.8) k/uL Monocytes # 0.6 (0-1.0) k/uL Eosinophils # 0.1 (0-0.7) k/uL Basophils # 0.0 (0-0.2) k/uL Hypochromasia Slight Sodium 136 L (137-145) mmol/L Potassium 4.8 (3.5-5.1) mmol/L Chloride 97 L (98-107) mmol/L Carbon Dioxide 29 (22-30) mmol/L Anion Gap 10 mmol/L BUN 35 H (7-17) mg/dL Creatinine 1.52 H (0.52-1.04) mg/dL Est GFR (CKD-EPI)AfAm 37 (>60 ml/min/1.73 sqM) Est GFR (CKD-EPI)NonAf 32 (>60 ml/min/1.73 sqM) Glucose 129 H (74-99) mg/dL Calcium 11.8 H (8.4-10.2) mg/dL Total Bilirubin 1.3 (0.2-1.3) mg/dL AST 18 (14-36) U/L ALT 10 (4-34) U/L Alkaline Phosphatase 76 (38-126) U/L Total Protein 7.5 (6.3-8.2) g/dL Albumin 4.1 (3.5-5.0) g/dL Amylase 78 (30-110) U/L Lipase 269 (23-300) U/L - Radiology Data Radiology results: report reviewed (CT abdomen and pelvis is pending), image reviewed Disposition Clinical Impression: UTI (urinary tract infection), Knee pain, Weakness, Bilateral leg pain Disposition: ADMITTED IP TO THIS [facility] Condition: Fair Is patient prescribed a controlled substance at d/c from ED?: No Referrals: Miranda Thompson MD [Primary Care Provider] - 1-2 days
[2021-05-24 04:26] LABS: Basophils % (A) 0 %; Eosinophils # (A) 0.1 k/uL (0-0.7); Eosinophils % (A) 1 %; HCT 30.8 % (34.0-46.0); HGB 9.9 gm/dL (11.4-16.0); Hypochromasia Slight; Lymphocytes # (A) 0.7 k/uL (1.0-4.8); Lymphocytes % (A) 10 %; MCH 28.8 pg (25.0-35.0); MCHC 32.2 g/dL (31.0-37.0); MCV 89.4 fL (80.0-100.0); Monocytes # (A) 0.6 k/uL (0-1.0); Monocytes % (A) 8 %; Neutrophils # (A) 5.6 k/uL (1.3-7.7); Neutrophils % (A) 80 %; Platelet Count 167 k/uL (150-450); RBC 3.44 m/uL (3.80-5.40); RDW 15.3 % (11.5-15.5); WBC 7.1 k/uL (3.8-10.6)
[2021-05-24 04:36] LABS: Albumin 4.1 g/dL (3.5-5.0); Calcium 11.8 mg/dL (8.4-10.2); Potassium 4.8 mmol/L (3.5-5.1); Total Bilirubin 1.3 mg/dL (0.2-1.3); Total Protein 7.5 g/dL (6.3-8.2)
[2021-05-24] MEDS ORDERED: LORazepam 2 MG/ML INJ IV PRN (06:02)
[2021-05-24] MEDS ORDERED: ONDANSETRON 4 MG/2 ML VIAL IVP PRN (06:02)
[2021-05-24] MEDS ORDERED: NALOXONE 0.4 MG/ML 1 ML VIAL IV PRN (06:02)
[2021-05-24] MEDS: SODIUM CHLORIDE 0.9% 1,000 ML IV SCH ×2 (06:21→11:49)
[2021-05-24 06:32] LABS: Bacteria,Urine Occasional /hpf; WBC,Urine 70 /hpf (0-5)
[2021-05-24 06:33] LABS: Appearance,Urine Turbid (Clear); Color,Urine Dark Red
[2021-05-24 06:34] LABS: RBC,Urine >180 /hpf (0-5)
--- NOTE | 2021-05-24 07:49 | CT ---
EXAMINATION TYPE: CT abdomen pelvis wo con DATE OF EXAM: 05/24/2021 HISTORY: Leg pain, unable to ambulate. Abdominal and pelvic pain. CT DLP: 516.7 mGycm. Automated Exposure Control for Dose Reduction was Utilized. TECHNIQUE: CT scan of the abdomen and pelvis is performed without oral or IV contrast. COMPARISON: Ultrasound abdomen January 17, 2021 FINDINGS: Within the limitations of a non-contrast study, the following observations are made. LUNG BASES: Cardiomegaly with multilead pacemaker/defibrillator is partially imaged. There is coronar y artery calcification and/or stents noted. There is mild/moderate bibasilar linear scarring and/or a telectasis. LIVER/GB: Gallbladder is surgically absent. No suspicious biliary dilatation. PANCREAS: Boik-ur-jiuwntem generalized fat replaced atrophy. SPLEEN: There is 2.1 cm thin-walled cyst anteriorly in the left kidney axial image 21. ADRENALS: No significant abnormality is seen. KIDNEYS: Left kidney has staghorn type calculi filling mid to lower pole calyces extending into renal pelvis. Right kidney has more focal 3-4 calculi including elongated calculus in the posterior lower pole collecting system coronal image 55. There is asymmetric increased cortical thinning to the left kidney. No left-sided hydronephrosis. Right kidney shows asymmetric mild to moderate hydronephrosis w ith 4 mm calculus distal right ureter seen best sagittal image 50. Urinary bladder shows intraluminal dependent 6 mm calculus axial image 74. BOWEL: Suboptimal evaluation without enteric contrast. Stomach poorly distended and thus suboptimally evaluated. No suspicious small or large bowel dilatation. Diverticula in the sigmoid colon are prese nt. No CT evidence for acute diverticulitis. GENITAL ORGANS: Anteverted uterus. Tubal ligation clips along the periphery. LYMPH NODES: No greater than 1cm abdominal or pelvic lymph nodes are appreciated. OSSEOUS STRUCTURES: Multilevel spurring in the thoracic spine. Disc calcification L3-L4 and L4-L5 lev els. There is multilevel facet arthropathy lower lumbar levels. Moderate axial joint space loss and s purring of both hips. OTHER: Moderate calcified plaque of the aorta extends into branch vessels. Prominent small vessel art erial calcification is seen consistent with long-standing chronic medical renal disease. Bulging in the anterior abdominal wall without definitive hernia defect. IMPRESSION: 1. Bilateral nephrolithiasis more prominent and numerous in the left kidney with staghorn-type appear ance. Mild to moderate right-sided hydronephrosis with partially obstructing 4 mm distal ureter calcu mary beth. Intraluminal 6 mm calculus in the bladder. Evidence of long-standing chronic medical renal disea se. 2. No additional acute findings are evident.
[2021-05-24] MEDS: LOSARTAN 50 MG TAB PO SCH (11:48)
[2021-05-24] MEDS: ENOXAPARIN 40 MG/0.4 ML SYRINGE SQ SCH (11:48)
[2021-05-24] MEDS: MORPHINE SULFATE 4 MG/ML SYRINGE IV PRN (12:55)
--- NOTE | 2021-05-24 14:56 | XR ---
EXAMINATION TYPE: XR chest 1V portable DATE OF EXAM: 05/24/2021 COMPARISON: 01/16/2021 HISTORY: Cough TECHNIQUE: Single frontal view of the chest is obtained. FINDINGS: Persistent interstitial pattern with cardiomegaly and cardiac device. No pneumothorax. Sub segmental changes at the lung bases. Diffuse osteopenia and arthropathy of the shoulders. No pneumoth orax. Biapical pleural thickening. IMPRESSION: Diffuse interstitial pattern stable from prior exam correlate for chronic interstitial l margaux disease or venous congestion. Superimposed interstitial pneumonitis not excluded.
--- NOTE | 2021-05-24 14:57 | US ---
EXAMINATION TYPE: US venous doppler duplex LE DATE OF EXAM: 05/24/2021 2:34 PM COMPARISON: NONE CLINICAL HISTORY: bilateral lower extremities pain. pain bilaterally since last night SIDE PERFORMED: Bilateral TECHNIQUE: The lower extremity deep venous system is examined utilizing real time linear array sonog jace with graded compression, doppler sonography and color-flow sonography. VESSELS IMAGED: Common Femoral Vein Deep Femoral Vein Greater Saphenous Vein * Femoral Vein Popliteal Vein Small Saphenous Vein * Proximal Calf Veins (* superficial vessels) Right Leg: Negative for DVT Left Leg: Negative for DVT IMPRESSION: Grayscale, color doppler, spectral doppler imaging performed of the deep veins of the lo wer extremities. There is normal flow, compressibility, vascular waveforms.
[2021-05-24] MEDS: carvediloL 12.5 MG TAB PO SCH (17:45)
--- NOTE | 2021-05-24 19:58 | P.HPIM ---
History of Present Illness H&P Date: 05/24/21 Moriah Tong, is an 80-year-old female who presented to [facility] emergency room with a chief complaint of weakness, severe leg pain bilaterally and inability to move legs. It's not clear from the history how chronic those symptoms are. Patient is a very poor historian at this time. I spoke with her daughter who stated that patient has not actually walked for several months, however she is having pain in her lower back and her bilateral lower extremities which is new for her. She was evaluated in the emergency room vital examination on presentation revealed a temperature of 98.7 pulse 72 respiration 18 blood pressure 152/46 pulse ox 97% on room air Laboratory data revealed a white blood count of 7.1 hemoglobin 9.9 platelet count 167 sodium 136 potassium 4.8 chloride 97 CO2 29 BUN 35 creatinine 1.52, patient had evidence of urinary tract infection, COVID-19 PCR was positive Computed tomography scan of the abdomen and pelvis done in the emergency room revealed evidence of multiple bilateral kidney stones Patient was admitted to medical floor for further evaluation and treatment, she was started on IV antibiotics, and IV fluid. Past Medical History Past Medical History: Atrial Fibrillation, CVA/TIA, Hypertension Additional Past Medical History / Comment(s): Stroke x 2- PACEMAKER History of Any Multi-Drug Resistant Organisms: None Reported Past Surgical History: Appendectomy, Cholecystectomy, Orthopedic Surgery, Tonsillectomy Additional Past Surgical History / Comment(s): pt. states shes had two knee surgeries Past Anesthesia/Blood Transfusion Reactions: No Reported Reaction Past Psychological History: Depression Smoking Status: Never smoker Past Alcohol Use History: None Reported Past Drug Use History: None Reported - Past Family History Son(s) Family Medical History: Myocardial Infarction ([place]) Mother Family Medical History: Cancer Father Family Medical History: Cancer Medications and Allergies Home Medications Medication Instructions Recorded Confirmed Type Carvedilol [Coreg] 25 mg PO BID 05/08/17 05/24/21 History Atorvastatin [Lipitor] 10 mg PO HS tab 05/11/17 05/24/21 Rx Montelukast [Singulair] 10 mg PO HS #30 tab 02/03/19 05/24/21 Rx Losartan Potassium [Cozaar] 50 mg PO DAILY 01/15/21 05/24/21 History glipiZIDE [Glucotrol] 10 mg PO BID 01/15/21 05/24/21 History Furosemide [Lasix] 40 mg PO DAILY 05/24/21 05/24/21 History Warfarin [Coumadin] 5 mg PO HS 05/24/21 05/24/21 History metFORMIN HCL [Glucophage] 500 mg PO TID-W/MEALS 05/24/21 05/24/21 History Allergies Allergy/AdvReac Type Severity Reaction Status Date / Time influenza virus vaccine qs Allergy Unknown Unknown Verified 05/24/21 08:19 2017- (36 months up) [From Fluarix Quad 2880-6477 (PF)] aspirin Allergy Unknown Verified 05/24/21 08:19 Penicillins Allergy Rash/Hives Verified 05/24/21 08:19 radish Allergy Rash/Hives Verified 05/24/21 08:19 red dye Allergy Unknown Verified 05/24/21 08:19 Physical Exam Vitals: Vital Signs Temp Pulse Resp BP Pulse Ox 05/24/21 09:00 98.7 F 73 18 138/63 98 05/24/21 04:47 98.9 F 70 18 120/58 96 05/24/21 02:10 98.7 F 72 18 152/46 97 Intake and Output 05/23/21 05/24/21 05/24/21 22:59 06:59 14:59 Other: Weight 58.967 kg In general patient is alert slightly confused in no distress HEENT head normocephalic and atraumatic Neck is supple no JVD no goiter no lymphadenopathy no carotid bruit Chest examination is clear to auscultation no crackles no wheezing Cardiac exam reveals regular heart sounds S1 and S2 no gallops no murmurs Abdomen is soft nontender no organomegaly with normal bowel sounds Extremity exam reveals no edema no cyanosis or clubbing Neurological examination reveals no gross focal deficits Results CBC & Chem 7: 05/24/21 03:53 05/24/21 03:53 Labs: Abnormal Lab Results - Last 24 Hours (Table) 05/24/21 05/24/21 05/24/21 Range/Units 03:53 03:53 06:01 RBC 3.44 L (3.80-5.40) m/uL Hgb 9.9 L (11.4-16.0) gm/dL Hct 30.8 L (34.0-46.0) % Lymphocytes # 0.7 L (1.0-4.8) k/uL Sodium 136 L (137-145) mmol/L Chloride 97 L (98-107) mmol/L BUN 35 H (7-17) mg/dL Creatinine 1.52 H (0.52-1.04) mg/dL Glucose 129 H (74-99) mg/dL Calcium 11.8 H (8.4-10.2) mg/dL Urine Appearance Turbid H (Clear) Urine RBC >180 H (0-5) /hpf Urine WBC 70 H (0-5) /hpf Urine Bacteria Occasional H (None) /hpf Coronavirus (PCR) (Not Detectd) 05/24/21 Range/Units 09:20 RBC (3.80-5.40) m/uL Hgb (11.4-16.0) gm/dL Hct (34.0-46.0) % Lymphocytes # (1.0-4.8) k/uL Sodium (137-145) mmol/L Chloride (98-107) mmol/L BUN (7-17) mg/dL Creatinine (0.52-1.04) mg/dL Glucose (74-99) mg/dL Calcium (8.4-10.2) mg/dL Urine Appearance (Clear) Urine RBC (0-5) /hpf Urine WBC (0-5) /hpf Urine Bacteria (None) /hpf Coronavirus (PCR) Detected A (Not Detectd) Assessment and Plan Plan: Urinary tract infection, patient started on IV Rocephin in the emergency room will continue at this time awaiting urine culture results Evidence of bilateral multiple kidney stones, urology consultation requested Positive COVID-19 infection, without evidence of respiratory failure, will check chest x-ray to rule out pneumonia Bilateral lower extremity pain, will check d-dimer and check bilateral lower extremity Doppler to rule out DVT Underlying history of multiple previous admissions for urinary tract infection Underlying history of atrial fibrillation Underlying history of hypertension Underlying history of chronic systolic congestive heart failure Underlying history of osteoarthritis was previous history of right total knee arthroplasty Underlying history of cardiac arrhythmia with history of pacemaker placement Underlying history of pulmonary hypertension Underlying history of [id number]-epvrbmsng diabetes mellitus At this time patient is admitted to medical floor Home medications reviewed and reordered Continue with IV ceftriaxone awaiting urine culture results Check chest x-ray, check bilateral lower extremity Doppler Check hemoglobin A1c Check echocardiogram to assess left ventricular function patient was previous history of congestive heart failure Consult infectious disease and urology Will follow closely
[2021-05-24] MEDS: glipiZIDE 10 MG TAB PO SCH (20:57)
[2021-05-24] MEDS: ATORVASTATIN 10 MG TAB PO SCH (20:57)
[2021-05-24] MEDS: MONTELUKAST 10 MG TAB PO SCH (20:58)
[2021-05-24 23:15] LABS: Glucose,Whole Blood 72 mg/dL (75-99)
[2021-05-25] MEDS: SODIUM CHLORIDE 0.9% 1,000 ML IV SCH ×4 (00:57→22:27)
[2021-05-25] MEDS: ENOXAPARIN 40 MG/0.4 ML SYRINGE SQ SCH (09:32)
[2021-05-25] MEDS: LOSARTAN 50 MG TAB PO SCH (09:32)
[2021-05-25] MEDS: FUROSEMIDE 40 MG TAB PO SCH (09:32)
[2021-05-25] MEDS: carvediloL 12.5 MG TAB PO SCH ×2 (09:32→18:39)
[2021-05-25 09:51] LABS: Basophils # (A) 0.01 X 10*3/uL (0.00-0.10); Basophils % (A) 0.1 %; Eosinophils # (A) 0.02 X 10*3/uL (0.04-0.35); Eosinophils % (A) 0.3 %; HCT 29.3 % (37.2-46.3); HGB 8.7 g/dL (12.0-15.0); Lymphocytes # (A) 0.95 X 10*3/uL (0.90-5.00); Lymphocytes % (A) 13.6 %; MCH 27.5 pg (27.0-32.0); MCHC 29.7 g/dL (32.0-37.0); MCV 92.7 fL (80.0-97.0); Monocytes # (A) 0.82 X 10*3/uL (0.20-1.00); Monocytes % (A) 11.7 %; Neutrophils # (A) 5.19 X 10*3/uL (1.80-7.70); Platelet Count 132 X 10*3/uL (140-440); RBC 3.16 X 10*6/uL (4.10-5.20); WBC 7.01 X 10*3/uL (4.50-10.00)
[2021-05-25 10:09] LABS: Albumin 3.4 g/dL (3.8-4.9); Albumin/Globulin Ratio 1.16 (1.60-3.17); Anion Gap 13.2 mmol/L (10.00-18.00); BUN/Creat Ratio 21.41 Ratio (12.00-20.00); Blood Urea Nitrogen 33.4 mg/dL (9.0-27.0); Calcium 9.9 mg/dL (8.7-10.3); Carbon Dioxide 21.4 mmol/L (20.0-27.5); Non-African American GFR(CKD) 30.8 (60.0-200.0); Potassium 4.7 mmol/L (3.5-5.5); Total Bilirubin 0.4 mg/dL (0.30-1.20); Total Protein 6.4 g/dL (6.2-8.2)
[2021-05-25 10:25] LABS: African American GFR (CKD) 35.7 (60.0-200.0)
[2021-05-25 10:45] LABS: Glucose,Whole Blood 103 mg/dL (75-99)
[2021-05-25] MEDS: glipiZIDE 10 MG TAB PO SCH (11:05)
--- NOTE | 2021-05-25 12:04 | P.GSCN ---
History of Present Illness Consult date: 05/25/21 Reason for Consult: Urolithiasis Requesting physician: Tori Barney History of present illness: The patient is an 80-year-old female admitted for evaluation of weakness associated with pain and weakness of her legs. Per the chart, the patient's daughter has stated that the patient hasn't walked for several months. When I questioned her this morning, she appeared confused and was unable to provide reliable responses. She has tested positive for COVID-19. Review of Systems ROS unobtainable: due to mental status Past Medical History Past Medical History: Atrial Fibrillation, Asthma, Heart Failure, CVA/TIA, Diabetes Mellitus, Hyperlipidemia, Hypertension, Osteoarthritis ([place]), Pneumonia Additional Past Medical History / Comment(s): CVAs-pt states no deficits, bradycardia with pacemaker, NIDDM type II, UTIs History of Any Multi-Drug Resistant Organisms: None Reported Past Surgical History: Appendectomy, Cholecystectomy, Orthopedic Surgery, Pacemaker, Tonsillectomy Additional Past Surgical History / Comment(s): Bilateral total knee replacements, bilateral carpal tunnel releases, colonoscopy, pacer by Dr. Mayen Past Anesthesia/Blood Transfusion Reactions: No Reported Reaction Type of Cardiac Device: Permanent Pacemaker Device Placement Date:: pt cannot recall Smoking Status: Never smoker - Past Family History Son(s) Family Medical History: Myocardial Infarction ([place]) Mother Family Medical History: Cancer Father Family Medical History: Cancer Medications and Allergies Home Medications Medication Instructions Recorded Confirmed Type Carvedilol [Coreg] 25 mg PO BID 05/08/17 05/24/21 History Atorvastatin [Lipitor] 10 mg PO HS tab 05/11/17 05/24/21 Rx Montelukast [Singulair] 10 mg PO HS #30 tab 02/03/19 05/24/21 Rx Losartan Potassium [Cozaar] 50 mg PO DAILY 01/15/21 05/24/21 History glipiZIDE [Glucotrol] 10 mg PO BID 01/15/21 05/24/21 History Furosemide [Lasix] 40 mg PO DAILY 05/24/21 05/24/21 History Warfarin [Coumadin] 5 mg PO HS 05/24/21 05/24/21 History metFORMIN HCL [Glucophage] 500 mg PO TID-W/MEALS 05/24/21 05/24/21 History Allergies Allergy/AdvReac Type Severity Reaction Status Date / Time influenza virus vaccine qs Allergy Unknown Unknown Verified 05/24/21 08:19 2017-18 (36 months up) [From Fluarix Quad 9733-9975 (PF)] aspirin Allergy Unknown Verified 05/24/21 08:19 Penicillins Allergy Rash/Hives Verified 05/24/21 08:19 radish Allergy Rash/Hives Verified 05/24/21 08:19 red dye Allergy Unknown Verified 05/24/21 08:19 Surgical - Exam Vital Signs Temp Pulse Resp BP Pulse Ox 98.7 F 72 18 152/46 97 05/24/21 02:10 05/24/21 02:10 05/24/21 02:10 05/24/21 02:10 05/24/21 02:10 - General well developed, well nourished, no distress - Respiratory normal respiratory effort - Abdomen Abdomen: soft, non tender, no guarding, no rigid, no rebound - Psychiatric oriented to time, oriented to person, oriented to place, speech is normal, memory intact Results - Labs 05/25/21 06:00 05/25/21 06:00 Abnormal Lab Results - Last 24 Hours (Table) 05/24/21 05/24/21 05/24/21 Range/Units 03:53 03:53 06:01 RBC 3.44 L (3.80-5.40) m/uL Hgb 9.9 L (11.4-16.0) gm/dL Hct 30.8 L (34.0-46.0) % Lymphocytes # 0.7 L (1.0-4.8) k/uL Sodium 136 L (137-145) mmol/L Chloride 97 L (98-107) mmol/L BUN 35 H (7-17) mg/dL Creatinine 1.52 H (0.52-1.04) mg/dL Glucose 129 H (74-99) mg/dL Calcium 11.8 H (8.4-10.2) mg/dL Urine Appearance Turbid H (Clear) Urine RBC >180 H (0-5) /hpf Urine WBC 70 H (0-5) /hpf Urine Bacteria Occasional H (None) /hpf Coronavirus (PCR) (Not Detectd) 05/24/21 Range/Units 09:20 RBC (3.80-5.40) m/uL Hgb (11.4-16.0) gm/dL Hct (34.0-46.0) % Lymphocytes # (1.0-4.8) k/uL Sodium (137-145) mmol/L Chloride (98-107) mmol/L BUN (7-17) mg/dL Creatinine (0.52-1.04) mg/dL Glucose (74-99) mg/dL Calcium (8.4-10.2) mg/dL Urine Appearance (Clear) Urine RBC (0-5) /hpf Urine WBC (0-5) /hpf Urine Bacteria (None) /hpf Coronavirus (PCR) Detected A (Not Detectd) Microbiology - Last 24 Hours (Table) 05/24/21 06:01 Urine Culture - Preliminary Urine,Voided Diabetes panel 05/24/21 Range/Units 03:53 Sodium 136 L (137-145) mmol/L Potassium 4.8 (3.5-5.1) mmol/L Chloride 97 L (98-107) mmol/L Carbon Dioxide 29 (22-30) mmol/L BUN 35 H (7-17) mg/dL Creatinine 1.52 H (0.52-1.04) mg/dL Glucose 129 H (74-99) mg/dL Calcium 11.8 H (8.4-10.2) mg/dL AST 18 (14-36) U/L ALT 10 (4-34) U/L Alkaline Phosphatase 76 (38-126) U/L Total Protein 7.5 (6.3-8.2) g/dL Albumin 4.1 (3.5-5.0) g/dL Calcium panel 05/24/21 Range/Units 03:53 Calcium 11.8 H (8.4-10.2) mg/dL Albumin 4.1 (3.5-5.0) g/dL Pituitary panel 05/24/21 Range/Units 03:53 Sodium 136 L (137-145) mmol/L Potassium 4.8 (3.5-5.1) mmol/L Chloride 97 L (98-107) mmol/L Carbon Dioxide 29 (22-30) mmol/L BUN 35 H (7-17) mg/dL Creatinine 1.52 H (0.52-1.04) mg/dL Glucose 129 H (74-99) mg/dL Calcium 11.8 H (8.4-10.2) mg/dL Adrenal panel 05/24/21 Range/Units 03:53 Sodium 136 L (137-145) mmol/L Potassium 4.8 (3.5-5.1) mmol/L Chloride 97 L (98-107) mmol/L Carbon Dioxide 29 (22-30) mmol/L BUN 35 H (7-17) mg/dL Creatinine 1.52 H (0.52-1.04) mg/dL Glucose 129 H (74-99) mg/dL Calcium 11.8 H (8.4-10.2) mg/dL Total Bilirubin 1.3 (0.2-1.3) mg/dL AST 18 (14-36) U/L ALT 10 (4-34) U/L Alkaline Phosphatase 76 (38-126) U/L Total Protein 7.5 (6.3-8.2) g/dL Albumin 4.1 (3.5-5.0) g/dL - Imaging CT scan - abdomen: report reviewed, image reviewed Assessment and Plan (1) Calculus of kidney Current Visit: Yes Status: Acute Code(s): N20.0 - CALCULUS OF KIDNEY SNOMED Code(s): 12737429 (2) Calculus of ureter Current Visit: Yes Status: Acute Code(s): N20.1 - CALCULUS OF URETER SNOMED Code(s): 15312744 Plan: I have reviewed the patient's computed tomography scan. This reveals a left staghorn renal calculus, as well as right hydronephrosis due to a 4 mm right distal ureteral calculus. There also appears to be a 6 mm bladder calculus. The patient appears comfortable, is afebrile, and has a normal WBC count. Urinalysis showed evidence of hematuria. A urine culture is pending. It is unclear whether the urinary calculi are contributing in any way to the patient's current symptomatology. If the urine culture comes back positive, she would benefit from placement of a right ureteral stent. If not, given her lack of symptoms it would be reasonable to allow time for the right distal ureteral calculus to pass. She will likely require a left percutaneous nephrolithotomy once her overall condition improves. Time with Patient: Greater than 30
[2021-05-25] MEDS: ATORVASTATIN 10 MG TAB PO SCH (19:50)
[2021-05-25] MEDS: MONTELUKAST 10 MG TAB PO SCH (19:50)
[2021-05-26] MEDS: SODIUM CHLORIDE 0.9% 1,000 ML IV SCH (05:18)
[2021-05-26] MEDS: LOSARTAN 50 MG TAB PO SCH (09:15)
[2021-05-26] MEDS: ENOXAPARIN 40 MG/0.4 ML SYRINGE SQ SCH (09:15)
[2021-05-26] MEDS: FUROSEMIDE 40 MG TAB PO SCH (09:15)
[2021-05-26] MEDS: carvediloL 12.5 MG TAB PO SCH (09:15)
[2021-05-26] MEDS: MORPHINE SULFATE 4 MG/ML SYRINGE IV PRN (09:27)
[2021-05-26 11:27] LABS: African American GFR (CKD) 37.5 (60.0-200.0); Albumin 3.4 g/dL (3.8-4.9); Albumin/Globulin Ratio 1.26 (1.60-3.17); Anion Gap 15.5 mmol/L (10.00-18.00); BUN/Creat Ratio 24.8 Ratio (12.00-20.00); Blood Urea Nitrogen 37.2 mg/dL (9.0-27.0); Calcium 8.9 mg/dL (8.7-10.3); Carbon Dioxide 23.5 mmol/L (20.0-27.5); Globulin 2.7 g/dL (1.6-3.3); Non-African American GFR(CKD) 32.3 (60.0-200.0); Potassium 4.1 mmol/L (3.5-5.5); Total Bilirubin 0.6 mg/dL (0.30-1.20); Total Protein 6.1 g/dL (6.2-8.2)
--- NOTE | 2021-05-26 14:15 | P.PN ---
Subjective Progress Note Date: 05/25/21 Moriah Tong, is an 80-year-old female who presented to [facility] emergency room with a chief complaint of weakness, severe leg pain bilaterally and inability to move legs. It's not clear from the history how chronic those symptoms are. Patient is a very poor historian at this time. I spoke with her daughter who stated that patient has not actually walked for several months, however she is having pain in her lower back and her bilateral lower extremities which is new for her. She was evaluated in the emergency room vital examination on presentation revealed a temperature of 98.7 pulse 72 respiration 18 blood pressure 152/46 pulse ox 97% on room air Laboratory data revealed a white blood count of 7.1 hemoglobin 9.9 platelet count 167 sodium 136 potassium 4.8 chloride 97 CO2 29 BUN 35 creatinine 1.52, patient had evidence of urinary tract infection, COVID-19 PCR was positive Computed tomography scan of the abdomen and pelvis done in the emergency room revealed evidence of multiple bilateral kidney stones Patient was admitted to medical floor for further evaluation and treatment, she was started on IV antibiotics, and IV fluid. On 05/25/2020 Patient was seen and examined on the medical floor, she is alert slightly confused in no distress thee is no fever or chills no headache or dizziness no chest pain or shortness of breath no cough, no nausea or vomiting no abdominal pain no diarrhea, no burning with urination no frequency or urgency and no hematuria. Objective - Vital Signs Vital signs: Vital Signs Temp 98.3 F 05/25/21 07:00 Pulse 93 05/25/21 07:00 Resp 16 05/25/21 07:00 BP 168/74 05/25/21 07:00 Pulse Ox 93 L 05/25/21 07:00 Intake & Output 05/24/21 05/25/21 05/25/21 18:59 06:59 18:59 Intake Total 118 Output Total 550 Balance -550 118 Weight 58.967 kg Intake: Oral 118 Output: Urine 550 Other: Voiding Method Bedpan Bedpan Diaper Diaper # Voids 1 - Exam In general patient is alert slightly confused in no distress HEENT head normocephalic and atraumatic Neck is supple no JVD no goiter no lymphadenopathy no carotid bruit Chest examination is clear to auscultation no crackles no wheezing Cardiac exam reveals regular heart sounds S1 and S2 no gallops no murmurs Abdomen is soft nontender no organomegaly with normal bowel sounds Extremity exam reveals no edema no cyanosis or clubbing Neurological examination reveals no gross focal deficits - Labs CBC & Chem 7: 05/25/21 06:00 05/26/21 06:53 Labs: Abnormal Lab Results - Last 24 Hours (Table) 05/24/21 05/25/21 05/25/21 Range/Units 23:14 06:00 06:00 RBC 3.16 L (4.10-5.20) X 10*6/uL Hgb 8.7 L (12.0-15.0) g/dL Hct 29.3 L (37.2-46.3) % MCHC 29.7 L (32.0-37.0) g/dL RDW 15.0 H (11.5-14.5) % Plt Count 132 L (140-440) X 10*3/uL MPV 13.0 H (9.5-12.2) fL Eosinophils # 0.02 L (0.04-0.35) X 10*3/uL BUN 33.4 H (9.0-27.0) mg/dL Creatinine 1.6 H (0.6-1.5) mg/dL Est GFR (CKD-EPI)AfAm 35.7 L (60.0-200.0) Est GFR (CKD-EPI)NonAf 30.8 L (60.0-200.0) BUN/Creatinine Ratio 21.41 H (12.00-20.00) Ratio Glucose 49 L* (70-110) mg/dL POC Glucose (mg/dL) 72 L (75-99) mg/dL ALT 6 L (8-44) U/L Albumin 3.4 L (3.8-4.9) g/dL Albumin/Globulin Ratio 1.16 L (1.60-3.17) g/dL 05/25/21 Range/Units 10:44 RBC (4.10-5.20) X 10*6/uL Hgb (12.0-15.0) g/dL Hct (37.2-46.3) % MCHC (32.0-37.0) g/dL RDW (11.5-14.5) % Plt Count (140-440) X 10*3/uL MPV (9.5-12.2) fL Eosinophils # (0.04-0.35) X 10*3/uL BUN (9.0-27.0) mg/dL Creatinine (0.6-1.5) mg/dL Est GFR (CKD-EPI)AfAm (60.0-200.0) Est GFR (CKD-EPI)NonAf (60.0-200.0) BUN/Creatinine Ratio (12.00-20.00) Ratio Glucose (70-110) mg/dL POC Glucose (mg/dL) 103 H (75-99) mg/dL ALT (8-44) U/L Albumin (3.8-4.9) g/dL Albumin/Globulin Ratio (1.60-3.17) g/dL Microbiology - Last 24 Hours (Table) 05/24/21 06:01 Urine Culture - Preliminary Urine,Voided Assessment and Plan Plan: Urinary tract infection, patient started on IV Rocephin in the emergency room will continue at this time awaiting urine culture results Evidence of bilateral multiple kidney stones, urology consultation requested Positive COVID-19 infection, without evidence of respiratory failure, will check chest x-ray to rule out pneumonia Bilateral lower extremity pain, will check d-dimer and check bilateral lower extremity Doppler to rule out DVT Underlying history of multiple previous admissions for urinary tract infection Underlying history of atrial fibrillation Underlying history of hypertension Underlying history of chronic systolic congestive heart failure Underlying history of osteoarthritis was previous history of right total knee arthroplasty Underlying history of 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
--- NOTE | 2021-05-26 14:19 | P.DS ---
Providers Date of admission: 05/24/21 14:04 Expected date of discharge: 05/26/21 Attending physician: Tori Barney Consults: 05/24/21 11:18 Consult Physician Routine Consulting Provider: Chaz Martin Consult Reason/Comments: kidney stones Do you want consulting provider notified?: Yes [facility] Course: Diagnoses on discharge: Urinary tract infection, patient started on IV Rocephin in the emergency room will continue at this time awaiting urine culture results Evidence of bilateral multiple kidney stones, urology consultation requested Positive COVID-19 infection, without evidence of respiratory failure, will check chest x-ray to rule out pneumonia Bilateral lower extremity pain, will check d-dimer and check bilateral lower extremity Doppler to rule out DVT Underlying history of multiple previous admissions for urinary tract infection Underlying history of atrial fibrillation Underlying history of hypertension Underlying history of chronic systolic congestive heart failure Underlying history of osteoarthritis was previous history of right total knee arthroplasty Underlying history of cardiac arrhythmia with history of pacemaker placement Underlying history of pulmonary hypertension Underlying history of lwn-dpzopll-icfcsiydw diabetes mellitus At this time patient is admitted to medical floor Home medications reviewed and reordered Continue with IV ceftriaxone awaiting urine culture results Check chest x-ray, check bilateral lower extremity Doppler Check hemoglobin A1c Check echocardiogram to assess left ventricular function patient was previous history of congestive heart failure Consult infectious disease and urology Hospital course: Moriah Tong, is an 80-year-old female who presented to [facility] emergency room with a chief complaint of weakness, severe leg pain bilaterally and inability to move legs. It's not clear from the history how chronic those symptoms are. Patient is a very poor historian at this time. I spoke with her daughter who stated that patient has not actually walked for several months, however she is having pain in her lower back and her bilateral lower extremities which is new for her. She was evaluated in the emergency room vital examination on presentation revealed a temperature of 98.7 pulse 72 respiration 18 blood pressure 152/46 pulse ox 97% on room air Laboratory data revealed a white blood count of 7.1 hemoglobin 9.9 platelet count 167 sodium 136 potassium 4.8 chloride 97 CO2 29 BUN 35 creatinine 1.52, patient had evidence of urinary tract infection, COVID-19 PCR was positive Computed tomography scan of the abdomen and pelvis done in the emergency room revealed evidence of multiple bilateral kidney stones Patient was admitted to medical floor for further evaluation and treatment, she was started on IV antibiotics, and IV fluid. On 05/25/2021 Patient was seen and examined on the medical floor, she is alert slightly confused in no distress thee is no fever or chills no headache or dizziness no chest pain or shortness of breath no cough, no nausea or vomiting no abdominal pain no diarrhea, no burning with urination no frequency or urgency and no hematuria. On 05/26/2021 patient was seen and examined on the medical floor she is alert and oriented 3 in no apparent distress she is answering questions appropriately urine culture came back as a skin damien contamination, case was discussed with Dr. Martin on the phone, he stated that patient is cleared for discharge from his standpoint he is not planning on any intervention at this time patient should follow up with his partner Dr. Kan in 2 weeks for further evaluation and treatment and possible surgery for kidney stones. Patient will be discharged today to [facility] on the [facility] for rehabilitation. Follow-up with Dr Swift in 2 weeks Patient Condition at Discharge: Fair Plan - Discharge Summary Discharge Rx Participant: No New Discharge Prescriptions: New Cefdinir 300 mg PO Q12HR 7 Days #14 cap Pioglitazone [Actos] 30 mg PO DAILY 30 Days #30 tab Continue Carvedilol [Coreg] 25 mg PO BID Atorvastatin [Lipitor] 10 mg PO HS tab Montelukast [Singulair] 10 mg PO HS #30 tab Furosemide [Lasix] 40 mg PO DAILY Warfarin [Coumadin] 5 mg PO HS Losartan Potassium [Cozaar] 50 mg PO DAILY Discontinued glipiZIDE [Glucotrol] 10 mg PO BID metFORMIN HCL [Glucophage] 500 mg PO TID-W/MEALS Discharge Medication List Carvedilol [Coreg] 25 mg PO BID 05/08/17 [History] Atorvastatin [Lipitor] 10 mg PO HS tab 05/11/17 [Rx] Montelukast [Singulair] 10 mg PO HS #30 tab 02/03/19 [Rx] Losartan Potassium [Cozaar] 50 mg PO DAILY 01/15/21 [History] Furosemide [Lasix] 40 mg PO DAILY 05/24/21 [History] Warfarin [Coumadin] 5 mg PO HS 05/24/21 [History] Cefdinir 300 mg PO Q12HR 7 Days #14 cap 05/26/21 [Rx] Pioglitazone [Actos] 30 mg PO DAILY 30 Days #30 tab 05/26/21 [Rx] Follow up Appointment(s)/Referral(s): Miranda Thompson MD [Primary Care Provider] - 1-2 days
[2021-05-26 14:21] VITALS: BP 153/61; PULSE 69; RESP 18; TEMP 98.2
[2021-05-26 14:23] LABS: Basophils # (A) 0.02 X 10*3/uL (0.00-0.10); Basophils % (A) 0.3 %; Eosinophils # (A) 0.01 X 10*3/uL (0.04-0.35); Eosinophils % (A) 0.1 %; HCT 29.9 % (37.2-46.3); HGB 8.9 g/dL (12.0-15.0); Lymphocytes # (A) 0.78 X 10*3/uL (0.90-5.00); Lymphocytes % (A) 10.9 %; MCHC 29.8 g/dL (32.0-37.0); MCV 90.6 fL (80.0-97.0); Mean Platelet Volume 12.9 fL (9.5-12.2); Monocytes # (A) 0.68 X 10*3/uL (0.20-1.00); Monocytes % (A) 9.5 %; Neutrophils # (A) 5.62 X 10*3/uL (1.80-7.70); Neutrophils % (A) 78.6 %; Platelet Count 113 X 10*3/uL (140-440); RDW 14.8 % (11.5-14.5); WBC 7.15 X 10*3/uL (4.50-10.00)
[2021-05-26 14:24] LABS: Acanthocytes 2+
== END 2021-05-26 16:15 | DRG 689 ==
LOC: EC 01:45 → 6NMEDSUR 06:02 → OBSVTOIN 14:04 → 6NMEDSUR 22:33
PROVIDERS: ADMIT Internal Medicine; ATTEND Internal Medicine
DX: N39.0 Urinary tract infection, site not specified (principal); U07.1 COVID-19; I50.22 Chronic systolic (congestive) heart failure; N20.2 Calculus of kidney with calculus of ureter; E11.9 Type 2 diabetes mellitus without complications; E78.5 Hyperlipidemia, unspecified; F32.A Depression, unspecified; I11.0 Hypertensive heart disease with heart failure; I48.91 Unspecified atrial fibrillation; J45.909 Unspecified asthma, uncomplicated; Z79.01 Long term (current) use of anticoagulants; Z79.84 Long term (current) use of oral hypoglycemic drugs; Z79.899 Other long term (current) drug therapy; Z82.49 Family history of ischemic heart disease and other diseases of the circulatory system; Z86.73 Personal history of transient ischemic attack (TIA), and cerebral infarction without residual deficits; Z95.0 Presence of cardiac pacemaker; Z96.653 Presence of artificial knee joint, bilateral; I27.22 Pulmonary hypertension due to left heart disease
CPT/HCPCS: 36415; 71045; 74176; 80053; 81001; 82150; 83690; 85025; 85379; 87086; 87635; 93970; 96361; 96365; 96366; 96372; 96375; 96376; 99285

== ENCOUNTER 2021-06-15 11:55 | Inpatient (IN) | payer MEDICARE ==
[2021-06-15] MEDS ORDERED: SODIUM CHLORIDE 0.9% 1,000 ML IV STA (12:24)
[2021-06-15 12:35] LABS: Glucose,Whole Blood >600 mg/dL (75-99)
--- NOTE | 2021-06-15 12:42 | ED ---
General Adult HPI - General Chief complaint: Recheck/Abnormal Lab/Rx Stated complaint: Hyperglycemia Time Seen by Provider: 06/15/21 12:00 Source: patient, EMS, RN notes reviewed, old records reviewed Mode of arrival: EMS Limitations: no limitations - History of Present Illness Initial comments: This 80-year-old female who presents to the emergency department after she had an episode of syncope at home. Patient states she does not remember feeling ab normal at all before passing out she does not feel abnormal currently. Patient has no complaints. The 15 minute duration was given to us by EMS who got that from the son. Patient was discharged from [facility] today she states she went home 8 a bunch of candy patient starting for candy at the care home. Patient states she does not want to be here patient states she does not want to be admitted. Patient denies any fever chills patient denies headache patient denies numbness weakness per patient denies chest pain palpitations difficulty breathing or shortness of breath per patient denies abdominal pain patient denies nausea vomiting diarrhea per patient states once legs or calf tenderness. - Related Data Home Medications Medication Instructions Recorded Confirmed Carvedilol [Coreg] 25 mg PO BID 05/08/17 06/15/21 Losartan Potassium [Cozaar] 50 mg PO DAILY 01/15/21 06/15/21 Furosemide [Lasix] 40 mg PO DAILY 05/24/21 06/15/21 Warfarin [Coumadin] 5 mg PO HS 05/24/21 06/15/21 Acetaminophen Tab [Tylenol Tab] 500 mg PO Q6H PRN 06/15/21 06/15/21 Calcium Carbonate [Calcium] 600 mg PO DAILY 06/15/21 06/15/21 Cholecalciferol [Vitamin D3 (125 125 mcg PO DAILY 06/15/21 06/15/21 Mcg = 5000 Iu)] Cranberry 4200 Mg 4,200 mg PO DAILY 06/15/21 06/15/21 Cyanocobalamin [Vitamin B-12] 500 - 1,000 mcg PO DAILY 06/15/21 06/15/21 Ferrous Sulfate [Feosol] 325 mg PO BID 06/15/21 06/15/21 Magnesium 250 mg PO HS 06/15/21 06/15/21 Vitamin E (Dl,Tocopheryl Acet) 400 unit PO DAILY 06/15/21 06/15/21 [Vitamin E (400 Iu = 180 mg)] glipiZIDE [Glucotrol] 10 mg PO AC-BID 06/15/21 06/15/21 metFORMIN HCL 500 mg PO TID 06/15/21 06/15/21 Previous Rx's Medication Instructions Recorded Atorvastatin [Lipitor] 10 mg PO HS tab 05/11/17 Montelukast [Singulair] 10 mg PO HS #30 tab 02/03/19 Allergies Allergy/AdvReac Type Severity Reaction Status Date / Time influenza virus vaccine qs Allergy Unknown Unknown Verified 06/15/21 12:40 2016- (36 months up) [From Fluarix Quad 5803-8880 (PF)] aspirin Allergy Unknown Verified 06/15/21 12:40 Penicillins Allergy Rash/Hives Verified 06/15/21 12:40 radish Allergy Rash/Hives Verified 06/15/21 12:40 red dye Allergy Unknown Verified 06/15/21 12:40 Review of Systems ROS Statement: Those systems with pertinent positive or pertinent negative responses have been documented in the HPI. ROS Other: All systems not noted in ROS Statement are negative. 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 Mayen Past Anesthesia/Blood Transfusion Reactions: No Reported Reaction Type of Cardiac Device: Permanent Pacemaker Device Placement Date:: pt cannot recall Past Psychological History: Depression Smoking Status: Never smoker - Past Family History Son(s) Family Medical History: Myocardial Infarction (MT) Mother Family Medical History: Cancer Father Family Medical History: Cancer General Exam - General Exam Comments Initial Comments: GENERAL: Patient is well-developed and well-nourished. Patient is nontoxic and well-hydrated and is in no acute distress. ENT: Neck is soft and supple. No significant lymphadenopathy is noted. Oropharynx is clear. Moist mucous membranes. Neck has full range of motion without eliciting any pain. EYES: The sclera were anicteric and conjunctiva were pink and moist. Extraocular movements were intact and pupils were equal round and reactive to light. Eyelids were unremarkable. PULMONARY: Unlabored respirations. Good breath sounds bilaterally. No audible rales rhonchi or wheezing was noted. CARDIOVASCULAR: There is a regular rate and rhythm without any murmurs gallops or rubs. ABDOMEN: Soft and nontender with normal bowel sounds. SKIN: Skin is clear with no lesions or rashes and otherwise unremarkable. NEUROLOGIC: Patient is alert and oriented x3. Cranial nerves II through XII are grossly intact. Motor and sensory are also intact. Normal speech, volume and content. Symmetrical smile. MUSCULOSKELETAL: Normal extremities with adequate strength and full range of motion. LYMPHATICS: No significant lymphadenopathy is noted PSYCHIATRIC: Normal psychiatric evaluation. Limitations: no limitations Course Vital Signs 06/15/21 11:58 Temperature 97.4 F L Pulse Rate 70 Respiratory 18 Rate Blood Pressure 137/57 O2 Sat by Pulse 97 Oximetry Medical Decision Making - Medical Decision Making EKG shows a paced rhythm at 70 bpm QRS is 176 QT interval is 476 QTC is 514. - Lab Data Result diagrams: 06/15/21 12:50 06/15/21 12:50 Lab Results 06/15/21 06/15/21 06/15/21 Range/Units 12:34 12:50 12:50 WBC 9.9 (3.8-10.6) k/uL RBC 3.05 L (3.80-5.40) m/uL Hgb 8.7 L (11.4-16.0) gm/dL Hct 28.6 L (34.0-46.0) % MCV 93.7 (80.0-100.0) fL MCH 28.4 (25.0-35.0) pg MCHC 30.3 L (31.0-37.0) g/dL RDW 16.2 H (11.5-15.5) % Plt Count 209 (150-450) k/uL MPV 11.5 Neutrophils % 85 % Lymphocytes % 9 % Monocytes % 5 % Eosinophils % 1 % Basophils % 0 % Neutrophils # 8.3 H (1.3-7.7) k/uL Lymphocytes # 0.9 L (1.0-4.8) k/uL Monocytes # 0.5 (0-1.0) k/uL Eosinophils # 0.1 (0-0.7) k/uL Basophils # 0.0 (0-0.2) k/uL Hypochromasia Marked Anisocytosis Slight Sodium (137-145) mmol/L Potassium (3.5-5.1) mmol/L Chloride (98-107) mmol/L Carbon Dioxide (22-30) mmol/L Anion Gap mmol/L BUN (7-17) mg/dL Creatinine (0.52-1.04) mg/dL Est GFR (CKD-EPI)AfAm (>60 ml/min/1.73 sqM) Est GFR (CKD-EPI)NonAf (>60 ml/min/1.73 sqM) Glucose (74-99) mg/dL POC Glucose (mg/dL) >600 H (75-99) mg/dL POC Glu Certified Medical Aide ID Belval, Jen Plasma Lactic Acid Giancarlo (0.7-2.0) mmol/L Calcium (8.4-10.2) mg/dL Magnesium (1.6-2.3) mg/dL Total Bilirubin (0.2-1.3) mg/dL AST (14-36) U/L ALT (4-34) U/L Alkaline Phosphatase (38-126) U/L Troponin I (0.000-0.034) ng/mL Total Protein (6.3-8.2) g/dL Albumin (3.5-5.0) g/dL Urine Color Light Yellow Urine Appearance Clear (Clear) Urine pH 6.0 (5.0-8.0) Ur Specific [place] 1.014 (1.001-1.035) Urine Protein Negative (Negative) Urine Glucose (UA) 4+ H (Negative) Urine Ketones Negative (Negative) Urine Blood Moderate H (Negative) Urine Nitrite Negative (Negative) Urine Bilirubin Negative (Negative) Urine Urobilinogen <2.0 (<2.0) mg/dL Ur Leukocyte Esterase Negative (Negative) Urine RBC 14 H (0-5) /hpf Urine WBC 4 (0-5) /hpf Ur Squamous Epith Cells 1 (0-4) /hpf Hyaline Casts 1 (0-2) /lpf Acetone, Qual (Negative) Coronavirus (PCR) (Not Detectd) 06/15/21 06/15/21 06/15/21 Range/Units 12:50 12:50 12:50 WBC (3.8-10.6) k/uL RBC (3.80-5.40) m/uL Hgb (11.4-16.0) gm/dL Hct (34.0-46.0) % MCV (80.0-100.0) fL MCH (25.0-35.0) pg MCHC (31.0-37.0) g/dL RDW (11.5-15.5) % Plt Count (150-450) k/uL MPV Neutrophils % % Lymphocytes % % Monocytes % % Eosinophils % % Basophils % % Neutrophils # (1.3-7.7) k/uL Lymphocytes # (1.0-4.8) k/uL Monocytes # (0-1.0) k/uL Eosinophils # (0-0.7) k/uL Basophils # (0-0.2) k/uL Hypochromasia Anisocytosis Sodium 128 L (137-145) mmol/L Potassium 5.2 H (3.5-5.1) mmol/L Chloride 90 L (98-107) mmol/L Carbon Dioxide 32 H (22-30) mmol/L Anion Gap 6 mmol/L BUN 25 H (7-17) mg/dL Creatinine 1.20 H (0.52-1.04) mg/dL Est GFR (CKD-EPI)AfAm 49 (>60 ml/min/1.73 sqM) Est GFR (CKD-EPI)NonAf 43 (>60 ml/min/1.73 sqM) Glucose 623 H* (74-99) mg/dL POC Glucose (mg/dL) (75-99) mg/dL POC Glu Certified Medical Aide ID Plasma Lactic Acid Giancarlo 1.8 (0.7-2.0) mmol/L Calcium 9.4 (8.4-10.2) mg/dL Magnesium 1.5 L (1.6-2.3) mg/dL Total Bilirubin 2.1 H (0.2-1.3) mg/dL AST 24 (14-36) U/L ALT 12 (4-34) U/L Alkaline Phosphatase 68 (38-126) U/L Troponin I 0.043 H* (0.000-0.034) ng/mL Total Protein 7.2 (6.3-8.2) g/dL Albumin 3.4 L (3.5-5.0) g/dL Urine Color Urine Appearance (Clear) Urine pH (5.0-8.0) Ur Specific [place] (1.001-1.035) Urine Protein (Negative) Urine Glucose (UA) (Negative) Urine Ketones (Negative) Urine Blood (Negative) Urine Nitrite (Negative) Urine Bilirubin (Negative) Urine Urobilinogen (<2.0) mg/dL Ur Leukocyte Esterase (Negative) Urine RBC (0-5) /hpf Urine WBC (0-5) /hpf Ur Squamous Epith Cells (0-4) /hpf Hyaline Casts (0-2) /lpf Acetone, Qual (Negative) Coronavirus (PCR) (Not Detectd) 06/15/21 06/15/21 06/15/21 Range/Units 12:50 12:50 15:01 WBC (3.8-10.6) k/uL RBC (3.80-5.40) m/uL Hgb (11.4-16.0) gm/dL Hct (34.0-46.0) % MCV (80.0-100.0) fL MCH (25.0-35.0) pg MCHC (31.0-37.0) g/dL RDW (11.5-15.5) % Plt Count (150-450) k/uL MPV Neutrophils % % Lymphocytes % % Monocytes % % Eosinophils % % Basophils % % Neutrophils # (1.3-7.7) k/uL Lymphocytes # (1.0-4.8) k/uL Monocytes # (0-1.0) k/uL Eosinophils # (0-0.7) k/uL Basophils # (0-0.2) k/uL Hypochromasia Anisocytosis Sodium (137-145) mmol/L Potassium (3.5-5.1) mmol/L Chloride (98-107) mmol/L Carbon Dioxide (22-30) mmol/L Anion Gap mmol/L BUN (7-17) mg/dL Creatinine (0.52-1.04) mg/dL Est GFR (CKD-EPI)AfAm (>60 ml/min/1.73 sqM) Est GFR (CKD-EPI)NonAf (>60 ml/min/1.73 sqM) Glucose (74-99) mg/dL POC Glucose (mg/dL) 562 H (75-99) mg/dL POC Glu Certified Medical Aide ID Cory Browne Nicole Plasma Lactic Acid Giancarlo (0.7-2.0) mmol/L Calcium (8.4-10.2) mg/dL Magnesium (1.6-2.3) mg/dL Total Bilirubin (0.2-1.3) mg/dL AST (14-36) U/L ALT (4-34) U/L Alkaline Phosphatase (38-126) U/L Troponin I (0.000-0.034) ng/mL Total Protein (6.3-8.2) g/dL Albumin (3.5-5.0) g/dL Urine Color Urine Appearance (Clear) Urine pH (5.0-8.0) Ur Specific [place] (1.001-1.035) Urine Protein (Negative) Urine Glucose (UA) (Negative) Urine Ketones (Negative) Urine Blood (Negative) Urine Nitrite (Negative) Urine Bilirubin (Negative) Urine Urobilinogen (<2.0) mg/dL Ur Leukocyte Esterase (Negative) Urine RBC (0-5) /hpf Urine WBC (0-5) /hpf Ur Squamous Epith Cells (0-4) /hpf Hyaline Casts (0-2) /lpf Acetone, Qual Negative (Negative) Coronavirus (PCR) Detected A (Not Detectd) Disposition Clinical Impression: Syncope, Hyperglycemia, Elevated troponin, Hypomagnesemia, COVID-19 in immunocompromised patient, Decubitus ulcer of buttock Disposition: ADMITTED IP TO THIS HOSP Referrals: Miranda Thompson MD [Primary Care Provider] - 1-2 days Time of Disposition: 16:14
[2021-06-15 13:55] LABS: Albumin 3.4 g/dL (3.5-5.0); Calcium 9.4 mg/dL (8.4-10.2); Total Bilirubin 2.1 mg/dL (0.2-1.3); Total Protein 7.2 g/dL (6.3-8.2)
[2021-06-15 14:06] LABS: Magnesium 1.5 mg/dL (1.6-2.3); Potassium 5.2 mmol/L (3.5-5.1)
[2021-06-15 14:25] LABS: Anisocytosis Slight; Basophils % (A) 0 %; Eosinophils # (A) 0.1 k/uL (0-0.7); Eosinophils % (A) 1 %; HCT 28.6 % (34.0-46.0); HGB 8.7 gm/dL (11.4-16.0); Hypochromasia Marked; Lymphocytes # (A) 0.9 k/uL (1.0-4.8); Lymphocytes % (A) 9 %; MCH 28.4 pg (25.0-35.0); MCHC 30.3 g/dL (31.0-37.0); MCV 93.7 fL (80.0-100.0); Mean Platelet Volume 11.5; Monocytes # (A) 0.5 k/uL (0-1.0); Monocytes % (A) 5 %; Neutrophils # (A) 8.3 k/uL (1.3-7.7); Neutrophils % (A) 85 %; Platelet Count 209 k/uL (150-450); RBC 3.05 m/uL (3.80-5.40); RDW 16.2 % (11.5-15.5); WBC 9.9 k/uL (3.8-10.6)
--- NOTE | 2021-06-15 14:41 | XR ---
EXAMINATION TYPE: XR chest 2V DATE OF EXAM: 06/15/2021 COMPARISON: Chest x-ray 05/24/2021 HISTORY: Weakness, chest pain TECHNIQUE: Frontal and lateral views of the chest are obtained. FINDINGS: There is a generator in left pectoral region, lead in the right ventricle and coronary sin us. Patient is rotated. Cardiac mediastinal silhouette is stable, heart is enlarged. There is improve ment in aeration. There is thoracic spondylosis. No evident pneumothorax or pleural effusion. Aorta i s dense. There are coronary artery calcifications. IMPRESSION: Suspect improvement in volume status, aeration. There is cardiomegaly.
[2021-06-15 15:03] LABS: Glucose,Whole Blood 562 mg/dL (75-99)
[2021-06-15] MEDS ORDERED: INSULIN ASPART (NovoLOG) 100 UNIT/ML VIAL SQ ONE (15:05)
[2021-06-15 15:48] LABS: Appearance,Urine Clear (Clear); Bilirubin,Urine Negative (Negative); Blood,Urine Moderate (Negative); Color,Urine Light Yellow; Glucose,Urine (UA) 4+ (Negative); Hyaline Casts,Urine 1 /lpf (0-2); Ketones,Urine Negative (Negative); Leukocyte Esterase,Urine Negative (Negative); Nitrite,Urine Negative (Negative); Protein,Urine Negative (Negative); RBC,Urine 14 /hpf (0-5); Specific Gravity,Urine 1.014 (1.001-1.035); Squamous Epithelial Cell,Urine 1 /hpf (0-4); Urobilinogen,Urine <2.0 mg/dL (<2.0); WBC,Urine 4 /hpf (0-5)
[2021-06-15] MEDS ORDERED: MAGNESIUM SULFATE-D5W PMX 1 GM in DEXTROSE/WATER 1 100ML.BAG IVPB ONE (16:27)
[2021-06-15 16:44] LABS: Glucose,Whole Blood 487 mg/dL (75-99)
[2021-06-15] MEDS ORDERED: SOTROVIMAB (EUA) 500 MG in SODIUM CHLORIDE 0.9% 100 ML IVPB ONE (17:00)
[2021-06-15] MEDS ORDERED: SODIUM CHLORIDE 0.9% 50 ML IVPB ONE (17:30)
[2021-06-15 20:26] LABS: Glucose,Whole Blood 305 mg/dL (75-99)
[2021-06-15] MEDS: INSULIN ASPART (NovoLOG) 100 UNIT/ML VIAL SQ SCH ×2 (20:37→22:03)
[2021-06-16 08:07] LABS: Glucose,Whole Blood 204 mg/dL (75-99)
[2021-06-16] MEDS: INSULIN ASPART (NovoLOG) 100 UNIT/ML VIAL SQ SCH ×4 (08:44→21:28)
[2021-06-16] MEDS: carvediloL 12.5 MG TAB PO SCH ×2 (08:45→21:27)
[2021-06-16] MEDS: FUROSEMIDE 40 MG TAB PO SCH (08:45)
[2021-06-16] MEDS: LOSARTAN 50 MG TAB PO SCH (08:45)
[2021-06-16 08:56] LABS: INR 2.6 (<1.2); Prothrombin Time 26.1 sec (9.0-12.0)
--- NOTE | 2021-06-16 10:00 | ECHOF ---
Referral Reason:syncope, LV function, valvular disease MEASUREMENTS -------- HEIGHT: 165.1 cm WEIGHT: 72.6 kg BP: RVIDd: 3.0 cm (< 3.3) IVSd: 1.0 cm (0.6 - 1.1) LVIDd: 4.4 cm (3.9 - 5.3) LVPWd: 1.4 cm (0.6 - 1.1) IVSs: 1.8 cm LVIDs: 3.0 cm LVPWs: 1.7 cm Ao Diam: 2.6 cm (2.0 - 3.7) AV Cusp: 1.6 cm (1.5 - 2.6) LA Diam: 4.2 cm (2.7 - 3.8) MV EXCURSION: 15.965 mm (> 18.000) MV EF SLOPE: 107 mm/s (70 - 150) EPSS: 1.1 cm MV E Hosea: 0.77 m/s MV DecT: 153 ms MV A Hosea: 0.41 m/s MV E/A Ratio: 1.88 AV maxP.48 mmHg AV meanP.22 mmHg RAP: 5.00 mmHg RVSP: 29.15 mmHg FINDINGS -------- Paced rhythm. This was a technically adequate study. The left ventricular size is normal. Left ventricular wall thickness is normal. Overall left vent ricular systolic function is low-normal with, an EF between 50 - 55 %. Left ventricular fillimg pre ssure cannot be estimated due to paced rhythm. The right ventricle is normal in size. The left atrium is mildly dilated. The right atrial size is normal. Aortic valve is trileaflet and is mildly thickened. There is mild aortic valve sclerosis. Peak/me an gradient across the Aortic Valve is 13.48mmHg / 8.22mmHg. The mitral valve is normal. The mitral valve leaflets are mildly thickened. Mild mitral regurgita tion is present. The tricuspid valve appears structurally normal. Mild tricuspid regurgitation present. Right vent ricular systolic pressure is normal at < 35 mmHg. Trace/mild (physiologic) pulmonic regurgitation. The aortic root size is normal. Normal inferior vena cava with normal inspiratory collapse consistent with estimated right atrial pre ssure of 5 mmHg. There is no pericardial effusion. CONCLUSIONS -------- 1. Paced rhythm. 2. The left ventricular size is normal. 3. Left ventricular wall thickness is normal. 4. Overall left ventricular systolic function is low-normal with, an EF between 50 - 55 %. 5. Left ventricular fillimg pressure cannot be estimated due to paced rhythm. 6. The left atrium is mildly dilated. 7. Aortic valve is trileaflet and is mildly thickened. 8. There is mild aortic valve sclerosis. 9. Peak/mean gradient across the Aortic Valve is 13.48mmHg / 8.22mmHg. 10. The mitral valve leaflets are mildly thickened. 11. Mild mitral regurgitation is present. 12. Mild tricuspid regurgitation present. 13. Trace/mild (physiologic) pulmonic regurgitation. 14. There is no pericardial effusion. CORE BLOWER OPERATOR: Dunia Terrell RDCS
--- NOTE | 2021-06-16 10:29 | P.CRDCN ---
History of Present Illness Consult date: 06/16/21 History of present illness: HISTORY OF PRESENT ILLNESS: This is a 80 year old female with a past medical history significant for cardiomyopathy with previous EF 20-25%, congestive heart failure, atrial fibrillation on Coumadin, CVA, HTN, and HLD. Patient follows with a balancing machine set up worker out of town, Dr. Vu. We have been asked to see the patient in consultation for syncope. Patient examined at the bedside in the emergency room. Patient is a poor historian. She was recently admitted to the hospital recently due to UTI, kidney stones, and Covid. Patient was discharged to [facility]. Patient was brought back to the hospital secondary to having a syncope episode. Patient states she was sitting in a chair and apparently passed out. The patient states she was in the chair the whole time and was trying attempting to stand up. She denies dizziness or lightheadedness. She denies chest pain or pressure. She denies shortness of breath. She denies cough or fever. The patient was tested for Covid this admission and continues to test positive. EKG reveals paced rhythm Chest xray cardiomegaly. Suspect improvement in volume status and aeration. Laboratory data: WBC 9.9.. Hemoglobin 8.7. Platelet count 209. INR 2.6. Sodium 128. Potassium 5.2. BUN 25. Creatinine 1.20. Magnesium 1.5. Troponin 0.043. 0.036. Current home cardiac medications include warfarin 5 mg at night, Cozaar 50 mg daily, carvedilol 25 mg twice a day, Lipitor 10 mg at night Echocardiogram completed revealed ejection fraction 50-55%, mild mitral regurgitation, and mild tricuspid regurgitation REVIEW OF SYSTEMS: At the time of my exam: CONSTITUTIONAL: Denies fever or chills. HEENT: Denies blurred vision, vision changes, or eye pain. Denies hemoptysis CARDIOVASCULAR: Denies chest pain. Denies orthopnea. Denies PND. Denies palpitations RESPIRATORY: Denies shortness of breath. GASTROINTESTINAL: Denies abdominal pain. Denies nausea or vomiting. HEMATOLOGIC: Denies bleeding disorders. GENITOURINARY: Denies any blood in urine. SKIN: Denies pruitis. Denies rash. PHYSICAL EXAM: VITAL SIGNS: Reviewed. GENERAL: Well-developed in no acute distress. HEENT: Head is normocephalic. Pupils are equal, round. Sclerae anicteric. Mucous membranes of the mouth are moist. Neck supple. No JVD or thyromegaly LUNGS: Respirations even and unlabored. Lungs essentially clear to auscultation bilaterally. HEART: Regular rate and rhythm. S1 and S2 heard. Systolic murmur noted. ABDOMEN: Soft. Nondistended. Nontender. EXTREMITIES: Normal range of motion. No clubbing or cyanosis. Peripheral pulses intact. Trace lower extremity edema. Patient has a wound to her right lower extremity with gauze dressing noted. NEUROLOGIC: Awake and alert. Oriented x 1-2. ASSESSMENT: Covid 19, originally diagnosed in May 2021 Abnormal troponins, may be secondary to Covid infection, no evidence of ACS Syncope Diabetes with hyperglycemia Hypomagnesemia Hyponatremia Hyperkalemia Permanent atrial fibrillation, on anticoagulation with Coumadin History of PPM implantation Hypertension Hyperlipidemia History of CVA History of cardiomyopathy with ejection fraction 20-25%, with recovery of LV fun ction Chronic diastolic congestive heart failure, currently euvolemic, ejection fraction 50-55% PLAN: 2D echo obtained and reviewed Continue home cardiac medications Continue Coumadin. Monitor INR. Continue telemetry monitoring Interrogate pacemaker Obtain orthostatic blood pressures if patient able to stand Recheck BMP Further recommendations pending patient course Nurse practitioner note has been reviewed by physician. Signing provider agrees with the documented findings, assessment, and plan of care. Past Medical History Past Medical History: Atrial Fibrillation, Asthma, Heart Failure, CVA/TIA, Diabe roseanna Mellitus, Hyperlipidemia, Hypertension, Osteoarthritis (OA), Pneumonia Additional Past Medical History / Comment(s): CVAs-pt states no deficits, bradycardia with pacemaker, NIDDM type II, UTIs History of Any Multi-Drug Resistant Organisms: None Reported Past Surgical History: Appendectomy, Cholecystectomy, Orthopedic Surgery, Pacemaker, Tonsillectomy Additional Past Surgical History / Comment(s): Bilateral total knee replacements, bilateral carpal tunnel releases, colonoscopy, pacer by Dr. Benjamin orozco Past Anesthesia/Blood Transfusion Reactions: No Reported Reaction Type of Cardiac Device: Permanent Pacemaker Device Placement Date:: pt cannot recall Past Psychological History: Depression Smoking Status: Never smoker - Past Family History Son(s) Family Medical History: Myocardial Infarction ([place]) Mother Family Medical History: Cancer Father Family Medical History: Cancer Medications and Allergies Home Medications Medication Instructions Recorded Confirmed Type Carvedilol [Coreg] 25 mg PO BID 05/08/17 06/15/21 History Atorvastatin [Lipitor] 10 mg PO HS tab 05/11/17 06/15/21 Rx Montelukast [Singulair] 10 mg PO HS #30 tab 02/03/19 06/15/21 Rx Losartan Potassium [Cozaar] 50 mg PO DAILY 01/15/21 06/15/21 History Furosemide [Lasix] 40 mg PO DAILY 05/24/21 06/15/21 History Warfarin [Coumadin] 5 mg PO HS 05/24/21 06/15/21 History Acetaminophen Tab [Tylenol Tab] 500 mg PO Q6H PRN 06/15/21 06/15/21 History Calcium Carbonate [Calcium] 600 mg PO DAILY 06/15/21 06/15/21 History Cholecalciferol [Vitamin D3 (125 125 mcg PO DAILY 06/15/21 06/15/21 History Mcg = 5000 Iu)] Cranberry 4200 Mg 4,200 mg PO DAILY 06/15/21 06/15/21 History Cyanocobalamin [Vitamin B-12] 500 - 1,000 mcg PO DAILY 06/15/21 06/15/21 History Ferrous Sulfate [Feosol] 325 mg PO BID 06/15/21 06/15/21 History Magnesium 250 mg PO HS 06/15/21 06/15/21 History Vitamin E (Dl,Tocopheryl Acet) 400 unit PO DAILY 06/15/21 06/15/21 History [Vitamin E (400 Iu = 180 mg)] glipiZIDE [Glucotrol] 10 mg PO AC-BID 06/15/21 06/15/21 History metFORMIN HCL 500 mg PO TID 06/15/21 06/15/21 History Allergies Allergy/AdvReac Type Severity Reaction Status Date / Time influenza virus vaccine qs Allergy Unknown Unknown Verified 06/15/21 12:40 2016-18 (36 months up) [From Fluarix Quad 8939-6048 (PF)] aspirin Allergy Unknown Verified 06/15/21 12:40 Penicillins Allergy Rash/Hives Verified 06/15/21 12:40 radish Allergy Rash/Hives Verified 06/15/21 12:40 red dye Allergy Unknown Verified 06/15/21 12:40 Physical Exam Vitals: Vital Signs Temp Pulse Resp BP Pulse Ox 06/16/21 08:07 97.2 F L 71 12 140/77 97 06/16/21 05:59 97.6 F 71 15 129/48 96 06/16/21 02:00 98.1 F 71 15 118/66 96 06/15/21 22:24 74 16 116/73 96 06/15/21 19:58 74 16 132/56 95 06/15/21 17:18 98.1 F 70 16 137/57 97 06/15/21 11:58 97.4 F L 70 18 137/57 97 Results 06/15/21 12:50 06/15/21 12:50 Cardiac Enzymes 06/15/21 06/15/21 06/15/21 Range/Units 12:50 12:50 16:55 AST 24 (14-36) U/L Troponin I 0.043 H* 0.036 H* (0.000-0.034) ng/mL Coagulation 06/16/21 Range/Units 08:10 PT 26.1 H (9.0-12.0) sec CBC 06/15/21 Range/Units 12:50 WBC 9.9 (3.8-10.6) k/uL RBC 3.05 L (3.80-5.40) m/uL Hgb 8.7 L (11.4-16.0) gm/dL Hct 28.6 L (34.0-46.0) % Plt Count 209 (150-450) k/uL Comprehensive Metabolic Panel 06/15/21 Range/Units 12:50 Sodium 128 L (137-145) mmol/L Potassium 5.2 H (3.5-5.1) mmol/L Chloride 90 L (98-107) mmol/L Carbon Dioxide 32 H (22-30) mmol/L BUN 25 H (7-17) mg/dL Creatinine 1.20 H (0.52-1.04) mg/dL Glucose 623 H* (74-99) mg/dL Calcium 9.4 (8.4-10.2) mg/dL AST 24 (14-36) U/L ALT 12 (4-34) U/L Alkaline Phosphatase 68 (38-126) U/L Total Protein 7.2 (6.3-8.2) g/dL Albumin 3.4 L (3.5-5.0) g/dL Current Medications Generic Name Dose Route Start Last Admin Trade Name Freq PRN Reason Stop Dose Admin Atorvastatin Calcium 10 mg 06/16/21 21:00 Atorvastatin 10 Mg Tab PO [facility] Carvedilol 25 mg 06/16/21 09:00 06/16/21 08:45 Carvedilol 12.5 Mg Tab PO 25 mg BID JANEEN Administration Furosemide 40 mg 06/16/21 09:00 06/16/21 08:45 Furosemide 40 Mg Tab PO 40 mg DAILY JANEEN Administration Insulin Aspart 0 unit 06/15/21 17:30 06/16/21 08:44 Insulin Aspart (Novolog) 100 Unit/Ml Vial SQ 2 unit ACHS JANEEN Administration Protocol Losartan Potassium 50 mg 06/16/21 09:00 06/16/21 08:45 Losartan 50 Mg Tab PO 50 mg DAILY JANEEN Administration 06/15/21 12:50 06/15/21 12:50
[2021-06-16 10:49] LABS: Calcium 9.5 mg/dL (8.4-10.2); Potassium 4.1 mmol/L (3.5-5.1)
[2021-06-16 12:07] LABS: Glucose,Whole Blood 231 mg/dL (75-99)
[2021-06-16] MEDS: CALCIUM CARBONATE 500 MG CHEWABLE PO SCH (12:08)
[2021-06-16] MEDS: HYDROmorphone 1 MG/ML 1 ML SYRINGE IVP PRN (12:09)
[2021-06-16] MEDS: ACETAMINOPHEN TAB 500 MG TAB PO PRN ×2 (12:09→18:16)
[2021-06-16 16:45] LABS: Glucose,Whole Blood 329 mg/dL (75-99)
[2021-06-16] MEDS: metFORMIN 500 MG TAB PO SCH ×2 (18:15→21:27)
[2021-06-16] MEDS: glipiZIDE 10 MG TAB PO SCH (18:15)
[2021-06-16 20:34] LABS: Glucose,Whole Blood 230 mg/dL (75-99)
[2021-06-16] MEDS ORDERED: WARFARIN 5 MG TAB PO SCH (21:00)
[2021-06-16] MEDS: ATORVASTATIN 10 MG TAB PO SCH (21:27)
[2021-06-16] MEDS: MAGNESIUM OXIDE 400 MG TAB PO SCH (21:27)
[2021-06-16] MEDS: FERROUS SULFATE 325 MG TAB PO SCH (21:27)
[2021-06-16] MEDS: MONTELUKAST 10 MG TAB PO SCH (21:27)
[2021-06-17 06:26] LABS: Glucose,Whole Blood 127 mg/dL (75-99)
[2021-06-17] MEDS: INSULIN ASPART (NovoLOG) 100 UNIT/ML VIAL SQ SCH ×4 (06:43→20:58)
[2021-06-17] MEDS: HYDROmorphone 1 MG/ML 1 ML SYRINGE IVP PRN (06:46)
[2021-06-17] MEDS: glipiZIDE 10 MG TAB PO SCH ×2 (06:46→17:24)
[2021-06-17 09:25] LABS: INR 3.3 (<1.2); Prothrombin Time 33.3 sec (9.0-12.0)
[2021-06-17 09:32] LABS: Albumin 2.9 g/dL (3.5-5.0); Calcium 9.4 mg/dL (8.4-10.2); Total Bilirubin 1.5 mg/dL (0.2-1.3); Total Protein 6.5 g/dL (6.3-8.2)
[2021-06-17 09:51] LABS: Anisocytosis Slight; Basophils % (A) 0 %; Eosinophils # (A) 0.1 k/uL (0-0.7); Eosinophils % (A) 1 %; HCT 29.4 % (34.0-46.0); HGB 9.1 gm/dL (11.4-16.0); Hypochromasia Marked; Lymphocytes # (A) 1.3 k/uL (1.0-4.8); Lymphocytes % (A) 14 %; MCH 29.2 pg (25.0-35.0); MCV 94.1 fL (80.0-100.0); Mean Platelet Volume 10.3; Monocytes # (A) 0.6 k/uL (0-1.0); Monocytes % (A) 7 %; Neutrophils # (A) 6.5 k/uL (1.3-7.7); Neutrophils % (A) 76 %; Platelet Count 190 k/uL (150-450); Potassium 4.7 mmol/L (3.5-5.1); RBC 3.13 m/uL (3.80-5.40); RDW 16.4 % (11.5-15.5); WBC 8.7 k/uL (3.8-10.6)
[2021-06-17] MEDS: CALCIUM CARBONATE 500 MG CHEWABLE PO SCH (10:07)
[2021-06-17] MEDS: metFORMIN 500 MG TAB PO SCH ×3 (10:08→20:58)
[2021-06-17] MEDS: FUROSEMIDE 40 MG TAB PO SCH (10:08)
[2021-06-17] MEDS: LOSARTAN 50 MG TAB PO SCH (10:08)
[2021-06-17] MEDS: FERROUS SULFATE 325 MG TAB PO SCH ×2 (10:08→20:58)
[2021-06-17] MEDS: VITAMIN E (DL,TOCOPHERYL ACET) 400 UNIT (180 MG) CAP PO SCH (10:09)
[2021-06-17] MEDS: CHOLECALCIFEROL 125 MCG (5000 IU) TABLET PO SCH (10:10)
[2021-06-17] MEDS: carvediloL 12.5 MG TAB PO SCH ×2 (10:11→20:58)
--- NOTE | 2021-06-17 10:59 | P.CONS ---
History of Present Illness - Reason for Consult Consult date: 06/17/21 wound care - History of Present Illness This is an 80-year-old being seen on [address] for nonhealing ulcerations to right heel right buttocks and coccyx. Patient states that the ulcerations have been there for quite a while. She lives with her son who assist in caring for her. All ulcerations are related to pressure. She has not utilized any other dressings to the site. Patient has a right heel ulceration that is a stage II pressure ulcer measuring approximately 1 x 1.5 x 0.1 cm with significant amount of slough and debris noted to the wound bed and minimal granulation. The wound edges are attached. The periwound does show ecchymosis. The patient did not want to turn for the ulcerations to be visualized. The ulcerations were reviewed in the chart with pictures. The right buttocks ulceration is as stage II pressure ulcer that measures 2.5 x 2 x 0.2 cm with granulation fat layer exposure moderate Slough no tunneling or undermining noted. Maceration is noted. The coccyx ulceration measures 1.5 x 2 x 0.2 width rolled edges granulation and fat layer exposure. This is a stage II pressure ulcer. Macer ation is noted to the periwound. Review Of Systems: Constitutional: No fever, no chills, no night sweats. No weight change. No weakness, fatigue or lethargy. No daytime sleepiness. Integumentary:reports wounds, no lesions. No rash or pruritus. No unusual bruising. No change in hair or nails. Physical exam: General Appearance: Alert, cooperative, no distress, appears stated age. Skin: See HPI all other Skin color, texture, tugor normal, no rashes or lesions. Neurologic: Alert oriented x3 Assessment: 1. Pressure ulcer right buttock stage II 2. Pressure ulcer coccyx stage II 3. Pressure ulcer right heel stage II Plan: 1.Right heel: Apply honey alginate, saline moist gauze, border foam, and rolled gauze secure with tape. 2. Coccyx/Right buttocks: Apply honey alginate, saline moist gauze, and sacral border foam. 3. Utilize foam heel protectors and a air-filled cushion for sitting. 4. Patient would benefit from continued advanced wound care. We'll be happy to see her in the wound care center upon discharge. Thank you for the consultation any questions please contact the wound care center DNP note has been reviewed and discussed with Dr. Marquez and the impression and plan of care has been directed as dictated. Past Medical History Past Medical History: Atrial Fibrillation, Asthma, Heart Failure, CVA/TIA, Diabetes Mellitus, Hyperlipidemia, Hypertension, Osteoarthritis (OA), Pneumonia Additional Past Medical History / Comment(s): Pt was recently hospitalized at [facility] on 06/04/21 with UTI, bilateral multiple kidney stones and covid. Other hx:Covid + recently, but son states pt had been moved out of [facility] covid unit prior to her discharge from there yesterday. Other hx: Current R heel wound, document states buttock decub, CVAs-son states no deficits, bradycardia with pacemaker, pulmonary hypertension, NIDDM type II, multiple UTIs History of Any Multi-Drug Resistant Organisms: None Reported Past Surgical History: Appendectomy, Cholecystectomy, Orthopedic Surgery, Pacemaker, Tonsillectomy Additional Past Surgical History / Comment(s): Bilateral total knee replacements, bilateral carpal tunnel releases, colonoscopy, pacer placed at [facility]/date unknown Past Anesthesia/Blood Transfusion Reactions: No Reported Reaction Type of Cardiac Device: Permanent Pacemaker Device Placement Date:: cannot recall Smoking Status: Former smoker - Past Family History Son(s) Family Medical History: Myocardial Infarction ([place]) Additional Family Medical History / Comment(s): Son had a [place] at the age of 47 yrs. Mother Family Medical History: Cancer Father Family Medical History: Cancer Medications and Allergies Home Medications Medication Instructions Recorded Confirmed Type Carvedilol [Coreg] 25 mg PO BID 05/08/17 06/15/21 History Atorvastatin [Lipitor] 10 mg PO HS tab 05/11/17 06/15/21 Rx Montelukast [Singulair] 10 mg PO HS #30 tab 02/03/19 06/15/21 Rx Losartan Potassium [Cozaar] 50 mg PO DAILY 01/15/21 06/15/21 History Furosemide [Lasix] 40 mg PO DAILY 05/24/21 06/15/21 History Warfarin [Coumadin] 5 mg PO HS 05/24/21 06/15/21 History Acetaminophen Tab [Tylenol Tab] 500 mg PO Q6H PRN 06/15/21 06/15/21 History Calcium Carbonate [Calcium] 600 mg PO DAILY 06/15/21 06/15/21 History Cholecalciferol [Vitamin D3 (125 125 mcg PO DAILY 06/15/21 06/15/21 History Mcg = 5000 Iu)] Cranberry 4200 Mg 4,200 mg PO DAILY 06/15/21 06/15/21 History Cyanocobalamin [Vitamin B-12] 500 - 1,000 mcg PO DAILY 06/15/21 06/15/21 History Ferrous Sulfate [Feosol] 325 mg PO BID 06/15/21 06/15/21 History Magnesium 250 mg PO HS 06/15/21 06/15/21 History Vitamin E (Dl,Tocopheryl Acet) 400 unit PO DAILY 06/15/21 06/15/21 History [Vitamin E (400 Iu = 180 mg)] glipiZIDE [Glucotrol] 10 mg PO AC-BID 06/15/21 06/15/21 History metFORMIN HCL 500 mg PO TID 06/15/21 06/15/21 History Allergies Allergy/AdvReac Type Severity Reaction Status Date / Time influenza virus vaccine qs Allergy Unknown Unknown Verified 06/15/21 12:40 2016- (36 months up) [From Fluarix Quad 3929-1961 (PF)] aspirin Allergy Unknown Verified 06/15/21 12:40 Penicillins Allergy Rash/Hives Verified 06/15/21 12:40 radish Allergy Rash/Hives Verified 06/15/21 12:40 red dye Allergy Unknown Verified 06/15/21 12:40 Physical Exam Vitals: Vital Signs Temp Pulse Resp BP Pulse Ox 06/17/21 04:50 97.5 F L 70 16 131/60 99 06/16/21 23:45 70 16 102/58 100 06/16/21 20:45 97.5 F L 72 18 127/56 99 06/16/21 16:00 97.6 F 70 16 124/50 97 06/16/21 13:00 97.8 F 71 16 123/49 98 Intake and Output 06/16/21 06/17/21 06/17/21 22:59 06:59 14:59 Output Total 200 Balance -200 Output: Urine 200 Other: Voiding Method Diaper Diaper Incontinent Incontinent External Catheter External Catheter # Voids 1 # Bowel Movements 1 Results CBC & Chem 7: 06/17/21 08:25 06/17/21 08:25 Labs: Abnormal Lab Results - Last 24 Hours (Table) 06/16/21 06/16/21 06/16/21 Range/Units 12:06 16:43 20:32 RBC (3.80-5.40) m/uL Hgb (11.4-16.0) gm/dL Hct (34.0-46.0) % RDW (11.5-15.5) % PT (9.0-12.0) sec INR (<1.2) Sodium (137-145) mmol/L Chloride (98-107) mmol/L BUN (7-17) mg/dL Creatinine (0.52-1.04) mg/dL Glucose (74-99) mg/dL POC Glucose (mg/dL) 231 H 329 H 230 H (75-99) mg/dL Total Bilirubin (0.2-1.3) mg/dL Albumin (3.5-5.0) g/dL 06/17/21 06/17/21 06/17/21 Range/Units 06:23 08:25 08:25 RBC 3.13 L (3.80-5.40) m/uL Hgb 9.1 L (11.4-16.0) gm/dL Hct 29.4 L (34.0-46.0) % RDW 16.4 H (11.5-15.5) % PT 33.3 H (9.0-12.0) sec INR 3.3 H (<1.2) Sodium (137-145) mmol/L Chloride (98-107) mmol/L BUN (7-17) mg/dL Creatinine (0.52-1.04) mg/dL Glucose (74-99) mg/dL POC Glucose (mg/dL) 127 H (75-99) mg/dL Total Bilirubin (0.2-1.3) mg/dL Albumin (3.5-5.0) g/dL 06/17/21 Range/Units 08:25 RBC (3.80-5.40) m/uL Hgb (11.4-16.0) gm/dL Hct (34.0-46.0) % RDW (11.5-15.5) % PT (9.0-12.0) sec INR (<1.2) Sodium 130 L (137-145) mmol/L Chloride 95 L (98-107) mmol/L BUN 30 H (7-17) mg/dL Creatinine 1.66 H (0.52-1.04) mg/dL Glucose 139 H (74-99) mg/dL POC Glucose (mg/dL) (75-99) mg/dL Total Bilirubin 1.5 H (0.2-1.3) mg/dL Albumin 2.9 L (3.5-5.0) g/dL Assessment and Plan (1) Stage II pressure ulcer of right heel Current Visit: Yes Status: Acute Code(s): L89.612 - PRESSURE ULCER OF RIGHT HEEL, STAGE 2 SNOMED Code(s): 968166937 (2) Pressure ulcer of right buttock, stage 2 Current Visit: Yes Status: Acute Code(s): L89.312 - PRESSURE ULCER OF RIGHT BUTTOCK, STAGE 2 SNOMED Code(s): 55203289164470603 (3) Pressure ulcer of coccygeal region, stage 2 Current Visit: Yes Status: Acute Code(s): L89.152 - PRESSURE ULCER OF SACRAL REGION, STAGE 2 SNOMED Code(s): 984999412
[2021-06-17 11:54] LABS: Glucose,Whole Blood 167 mg/dL (75-99)
--- NOTE | 2021-06-17 11:58 | P.PN ---
Subjective Progress Note Date: 06/17/21 HISTORY OF PRESENT ILLNESS: This is a 80 year old female with a past medical history significant for cardiomyopathy with previous EF 20-25%, congestive heart failure, atrial fibrillation on Coumadin, CVA, HTN, and HLD. Patient follows with a data modeler out of town, Dr. Vu. We have been asked to see the patient in consultation for syncope. Patient examined at the bedside in the emergency room. Patient is a poor historian. She was recently admitted to the hospital recently due to UTI, kidney stones, and Covid. Patient was discharged to [facility]. Patient was brought back to the hospital secondary to having a syncope episode. Patient states she was sitting in a chair and apparently passed out. The patient states she was in the chair the whole time and was trying attempting to stand up. She denies dizziness or lightheadedness. She denies chest pain or pressure. She denies shortness of breath. She denies cough or fever. The patient was tested for Covid this admission and continues to test positive. EKG reveals paced rhythm Chest xray cardiomegaly. Suspect improvement in volume status and aeration. Laboratory data: WBC 9.9.. Hemoglobin 8.7. Platelet count 209. INR 2.6. Sodium 128. Potassium 5.2. BUN 25. Creatinine 1.20. Magnesium 1.5. Troponin 0.043. 0.036. Current home cardiac medications include warfarin 5 mg at night, Cozaar 50 mg daily, carvedilol 25 mg twice a day, Lipitor 10 mg at night Echocardiogram completed revealed ejection fraction 50-55%, mild mitral regurgitation, and mild tricuspid regurgitation 06/17/2021 Patient examined this morning at the bedside. Patient denies chest pain or pressure. She denies shortness of breath. Vital signs are stable. Interrogation of pacemaker did not reveal any events to account for patient's syncope. Patient's creatinine today is 1.66. She is currently receiving Lasix 40 mg daily. INR today 3.3. PHYSICAL EXAM: VITAL SIGNS: Reviewed. GENERAL: Well-developed in no acute distress. HEENT: Head is normocephalic. Pupils are equal, round. Sclerae anicteric. Mucous membranes of the mouth are moist. Neck supple. No JVD or thyromegaly LUNGS: Respirations even and unlabored. Lungs essentially clear to auscultation bilaterally. HEART: Regular rate and rhythm. S1 and S2 heard. Systolic murmur noted. ABDOMEN: Soft. Nondistended. Nontender. EXTREMITIES: Normal range of motion. No clubbing or cyanosis. Peripheral pulses intact. Trace lower extremity edema. Patient has a wound to her right lower extremity with gauze dressing noted. NEUROLOGIC: Awake and alert. Oriented x 1-2. ASSESSMENT: Covid 19, originally diagnosed in May 2021 Abnormal troponins, may be secondary to Covid infection, no evidence of ACS Syncope Diabetes with hyperglycemia Hypomagnesemia Hyponatremia Hyperkalemia Permanent atrial fibrillation, on anticoagulation with Coumadin History of PPM implantation Hypertension Hyperlipidemia History of CVA History of cardiomyopathy with ejection fraction 20-25%, with recovery of LV function Chronic diastolic congestive heart failure, currently euvolemic, ejection fraction 50-55% PLAN: Continue current cardiac medications Decrease Lasix to 20 mg daily secondary to increased creatinine today Repeat kidney function in the morning Hold Coumadin tonight secondary to INR 3.3. Repeat in a.m. No further inpatient recommendations from a cardiac standpoint Discharge per medicine Nurse practitioner note has been reviewed by physician. Signing provider agrees with the documented findings, assessment, and plan of care. Objective - Vital Signs Vital signs: Vital Signs Temp 97.5 F L 06/17/21 04:50 Pulse 70 06/17/21 04:50 Resp 16 06/17/21 04:50 BP 131/60 06/17/21 04:50 Pulse Ox 99 06/17/21 04:50 Intake & Output 06/16/21 06/17/21 06/17/21 18:59 06:59 18:59 Output Total 200 Balance -200 Weight 72.575 kg Output: Urine 200 Other: Voiding Method Diaper Diaper Incontinent Incontinent External Catheter External Catheter # Voids 1 # Bowel Movements 1 - Labs CBC & Chem 7: 06/17/21 08:25 06/17/21 08:25 Labs: Abnormal Lab Results - Last 24 Hours (Table) 06/16/21 06/16/21 06/16/21 Range/Units 12:06 16:43 20:32 RBC (3.80-5.40) m/uL Hgb (11.4-16.0) gm/dL Hct (34.0-46.0) % RDW (11.5-15.5) % PT (9.0-12.0) sec INR (<1.2) Sodium (137-145) mmol/L Chloride (98-107) mmol/L BUN (7-17) mg/dL Creatinine (0.52-1.04) mg/dL Glucose (74-99) mg/dL POC Glucose (mg/dL) 231 H 329 H 230 H (75-99) mg/dL Total Bilirubin (0.2-1.3) mg/dL Albumin (3.5-5.0) g/dL 06/17/21 06/17/21 06/17/21 Range/Units 06:23 08:25 08:25 RBC 3.13 L (3.80-5.40) m/uL Hgb 9.1 L (11.4-16.0) gm/dL Hct 29.4 L (34.0-46.0) % RDW 16.4 H (11.5-15.5) % PT 33.3 H (9.0-12.0) sec INR 3.3 H (<1.2) Sodium (137-145) mmol/L Chloride (98-107) mmol/L BUN (7-17) mg/dL Creatinine (0.52-1.04) mg/dL Glucose (74-99) mg/dL POC Glucose (mg/dL) 127 H (75-99) mg/dL Total Bilirubin (0.2-1.3) mg/dL Albumin (3.5-5.0) g/dL 06/17/21 Range/Units 08:25 RBC (3.80-5.40) m/uL Hgb (11.4-16.0) gm/dL Hct (34.0-46.0) % RDW (11.5-15.5) % PT (9.0-12.0) sec INR (<1.2) Sodium 130 L (137-145) mmol/L Chloride 95 L (98-107) mmol/L BUN 30 H (7-17) mg/dL Creatinine 1.66 H (0.52-1.04) mg/dL Glucose 139 H (74-99) mg/dL POC Glucose (mg/dL) (75-99) mg/dL Total Bilirubin 1.5 H (0.2-1.3) mg/dL Albumin 2.9 L (3.5-5.0) g/dL
[2021-06-17 14:07] VITALS: BMI 26.2
--- NOTE | 2021-06-17 14:29 | P.HPIM ---
History of Present Illness H&P Date: 06/16/21 Moriah Tong, is an 80-year-old female who presented to [facility] emergency room with a chief complaint of syncope at home. Patient [facility], she went home and ate significant amount of candy, her sugar was up to 600, had an episode of syncope at home. She was evaluated in the emergency room vital examination on presentation revealed a temperature of 97.4 pulse 70 respiration 18 blood pressure 137/57 pulse ox 97% on room air Laboratory data revealed a white blood count of 9.9 hemoglobin 8.7 platelet count 207 sodium 128 potassium 5.2 chloride 90 CO2 32 BUN 25 creatinine 1.2 glucose level was 623 Testing in the emergency room revealed chest x-ray done in the emergency room revealed evidence of cardiomegaly no pneumothorax no pleural effusion, EKG revealed paced rhythm Patient was admitted to medical floor for further evaluation and treatment. Past Medical History Past Medical History: Atrial Fibrillation, Asthma, Heart Failure, CVA/TIA, Diabetes Mellitus, Hyperlipidemia, Hypertension, Osteoarthritis (OA), Pneumonia Additional Past Medical History / Comment(s): Pt was recently hospitalized at [facility] on 06/04/21 with UTI, bilateral multiple kidney stones and covid. Other hx:Covid + recently, but son states pt had been moved out of [facility]'s covid unit prior to her discharge from there yesterday. Other hx: Current R heel wound, document states buttock decub, CVAs-son states no deficits, bradycardia with pacemaker, pulmonary hypertension, NIDDM type II, multiple UTIs History of Any Multi-Drug Resistant Organisms: None Reported Past Surgical History: Appendectomy, Cholecystectomy, Orthopedic Surgery, Pacemaker, Tonsillectomy Additional Past Surgical History / Comment(s): Bilateral total knee replacements, bilateral carpal tunnel releases, colonoscopy, pacer placed at [facility]/date unknown Past Anesthesia/Blood Transfusion Reactions: No Reported Reaction Type of Cardiac Device: Permanent Pacemaker Device Placement Date:: cannot recall Smoking Status: Former smoker - Past Family History Son(s) Family Medical History: Myocardial Infarction (DC) Additional Family Medical History / Comment(s): Son had a DC at the age of 47 yrs. Mother Family Medical History: Cancer Father Family Medical History: Cancer Medications and Allergies Home Medications Medication Instructions Recorded Confirmed Type Carvedilol [Coreg] 25 mg PO BID 05/08/17 06/15/21 History Atorvastatin [Lipitor] 10 mg PO HS tab 05/11/17 06/15/21 Rx Montelukast [Singulair] 10 mg PO HS #30 tab 02/03/19 06/15/21 Rx Losartan Potassium [Cozaar] 50 mg PO DAILY 01/15/21 06/15/21 History Furosemide [Lasix] 40 mg PO DAILY 05/24/21 06/15/21 History Warfarin [Coumadin] 5 mg PO HS 05/24/21 06/15/21 History Acetaminophen Tab [Tylenol Tab] 500 mg PO Q6H PRN 06/15/21 06/15/21 History Calcium Carbonate [Calcium] 600 mg PO DAILY 06/15/21 06/15/21 History Cholecalciferol [Vitamin D3 (125 125 mcg PO DAILY 06/15/21 06/15/21 History Mcg = 5000 Iu)] Cranberry 4200 Mg 4,200 mg PO DAILY 06/15/21 06/15/21 History Cyanocobalamin [Vitamin B-12] 500 - 1,000 mcg PO DAILY 06/15/21 06/15/21 History Ferrous Sulfate [Feosol] 325 mg PO BID 06/15/21 06/15/21 History Magnesium 250 mg PO HS 06/15/21 06/15/21 History Vitamin E (Dl,Tocopheryl Acet) 400 unit PO DAILY 06/15/21 06/15/21 History [Vitamin E (400 Iu = 180 mg)] glipiZIDE [Glucotrol] 10 mg PO AC-BID 06/15/21 06/15/21 History metFORMIN HCL 500 mg PO TID 06/15/21 06/15/21 History Allergies Allergy/AdvReac Type Severity Reaction Status Date / Time influenza virus vaccine qs Allergy Unknown Unknown Verified 06/15/21 12:40 2016- (36 months up) [From Fluarix Quad 8034-9735 ()] aspirin Allergy Unknown Verified 06/15/21 12:40 Penicillins Allergy Rash/Hives Verified 06/15/21 12:40 radish Allergy Rash/Hives Verified 06/15/21 12:40 red dye Allergy Unknown Verified 06/15/21 12:40 Physical Exam Vitals: Vital Signs Temp Pulse Resp BP Pulse Ox 06/16/21 08:07 97.2 F L 71 12 140/77 97 06/16/21 05:59 97.6 F 71 15 129/48 96 06/16/21 02:00 98.1 F 71 15 118/66 96 06/15/21 22:24 74 16 116/73 96 06/15/21 19:58 74 16 132/56 95 06/15/21 17:18 98.1 F 70 16 137/57 97 06/15/21 11:58 97.4 F L 70 18 137/57 97 Intake and Output 06/15/21 06/16/21 06/16/21 22:59 06:59 14:59 Other: Weight 72.575 kg In general patient is alert and oriented x 3 in no distress HEENT head normocephalic and atraumatic Neck is supple no JVD no goiter no lymphadenopathy no carotid bruit Chest examination is clear to auscultation no crackles no wheezing Cardiac exam reveals regular heart sounds S1 and S2 no gallops no murmurs Abdomen is soft nontender no organomegaly with normal bowel sounds Extremity exam reveals no edema no cyanosis or clubbing Neurological examination reveals no gross focal deficits Results CBC & Chem 7: 06/17/21 08:25 06/17/21 08:25 Labs: Abnormal Lab Results - Last 24 Hours (Table) 06/15/21 06/15/21 06/15/21 Range/Units 12:34 12:50 12:50 RBC 3.05 L (3.80-5.40) m/uL Hgb 8.7 L (11.4-16.0) gm/dL Hct 28.6 L (34.0-46.0) % MCHC 30.3 L (31.0-37.0) g/dL RDW 16.2 H (11.5-15.5) % Neutrophils # 8.3 H (1.3-7.7) k/uL Lymphocytes # 0.9 L (1.0-4.8) k/uL PT (9.0-12.0) sec INR (<1.2) Sodium (137-145) mmol/L Potassium (3.5-5.1) mmol/L Chloride (98-107) mmol/L Carbon Dioxide (22-30) mmol/L BUN (7-17) mg/dL Creatinine (0.52-1.04) mg/dL Glucose (74-99) mg/dL POC Glucose (mg/dL) >600 H (75-99) mg/dL Magnesium (1.6-2.3) mg/dL Total Bilirubin (0.2-1.3) mg/dL Troponin I (0.000-0.034) ng/mL Albumin (3.5-5.0) g/dL Urine Glucose (UA) 4+ H (Negative) Urine Blood Moderate H (Negative) Urine RBC 14 H (0-5) /hpf Coronavirus (PCR) (Not Detectd) 06/15/21 06/15/21 06/15/21 Range/Units 12:50 12:50 12:50 RBC (3.80-5.40) m/uL Hgb (11.4-16.0) gm/dL Hct (34.0-46.0) % MCHC (31.0-37.0) g/dL RDW (11.5-15.5) % Neutrophils # (1.3-7.7) k/uL Lymphocytes # (1.0-4.8) k/uL PT (9.0-12.0) sec INR (<1.2) Sodium 128 L (137-145) mmol/L Potassium 5.2 H (3.5-5.1) mmol/L Chloride 90 L (98-107) mmol/L Carbon Dioxide 32 H (22-30) mmol/L BUN 25 H (7-17) mg/dL Creatinine 1.20 H (0.52-1.04) mg/dL Glucose 623 H* (74-99) mg/dL POC Glucose (mg/dL) (75-99) mg/dL Magnesium 1.5 L (1.6-2.3) mg/dL Total Bilirubin 2.1 H (0.2-1.3) mg/dL Troponin I 0.043 H* (0.000-0.034) ng/mL Albumin 3.4 L (3.5-5.0) g/dL Urine Glucose (UA) (Negative) Urine Blood (Negative) Urine RBC (0-5) /hpf Coronavirus (PCR) Detected A (Not Detectd) 06/15/21 06/15/21 06/15/21 Range/Units 15:01 16:42 16:55 RBC (3.80-5.40) m/uL Hgb (11.4-16.0) gm/dL Hct (34.0-46.0) % MCHC (31.0-37.0) g/dL RDW (11.5-15.5) % Neutrophils # (1.3-7.7) k/uL Lymphocytes # (1.0-4.8) k/uL PT (9.0-12.0) sec INR (<1.2) Sodium (137-145) mmol/L Potassium (3.5-5.1) mmol/L Chloride (98-107) mmol/L Carbon Dioxide (22-30) mmol/L BUN (7-17) mg/dL Creatinine (0.52-1.04) mg/dL Glucose (74-99) mg/dL POC Glucose (mg/dL) 562 H 487 H (75-99) mg/dL Magnesium (1.6-2.3) mg/dL Total Bilirubin (0.2-1.3) mg/dL Troponin I 0.036 H* (0.000-0.034) ng/mL Albumin (3.5-5.0) g/dL Urine Glucose (UA) (Negative) Urine Blood (Negative) Urine RBC (0-5) /hpf Coronavirus (PCR) (Not Detectd) 06/15/21 06/16/21 06/16/21 Range/Units 20:23 08:06 08:10 RBC (3.80-5.40) m/uL Hgb (11.4-16.0) gm/dL Hct (34.0-46.0) % MCHC (31.0-37.0) g/dL RDW (11.5-15.5) % Neutrophils # (1.3-7.7) k/uL Lymphocytes # (1.0-4.8) k/uL PT 26.1 H (9.0-12.0) sec INR 2.6 H (<1.2) Sodium (137-145) mmol/L Potassium (3.5-5.1) mmol/L Chloride (98-107) mmol/L Carbon Dioxide (22-30) mmol/L BUN (7-17) mg/dL Creatinine (0.52-1.04) mg/dL Glucose (74-99) mg/dL POC Glucose (mg/dL) 305 H 204 H (75-99) mg/dL Magnesium (1.6-2.3) mg/dL Total Bilirubin (0.2-1.3) mg/dL Troponin I (0.000-0.034) ng/mL Albumin (3.5-5.0) g/dL Urine Glucose (UA) (Negative) Urine Blood (Negative) Urine RBC (0-5) /hpf Coronavirus (PCR) (Not Detectd) 06/16/21 Range/Units 08:10 RBC (3.80-5.40) m/uL Hgb (11.4-16.0) gm/dL Hct (34.0-46.0) % MCHC (31.0-37.0) g/dL RDW (11.5-15.5) % Neutrophils # (1.3-7.7) k/uL Lymphocytes # (1.0-4.8) k/uL PT (9.0-12.0) sec INR (<1.2) Sodium 132 L (137-145) mmol/L Potassium (3.5-5.1) mmol/L Chloride 97 L (98-107) mmol/L Carbon Dioxide (22-30) mmol/L BUN 23 H (7-17) mg/dL Creatinine 1.40 H (0.52-1.04) mg/dL Glucose 199 H (74-99) mg/dL POC Glucose (mg/dL) (75-99) mg/dL Magnesium (1.6-2.3) mg/dL Total Bilirubin (0.2-1.3) mg/dL Troponin I (0.000-0.034) ng/mL Albumin (3.5-5.0) g/dL Urine Glucose (UA) (Negative) Urine Blood (Negative) Urine RBC (0-5) /hpf Coronavirus (PCR) (Not Detectd) Thrombosis Risk Factor Assmnt - Choose All That Apply Any of the Below Risk Factors Present?: Yes Each Factor Represents 1 point: Obesity (BMI >25) Other Risk Factors: Yes Each Risk Factor Represents 3 Points: Age 75 years or older Other congenital or acquired thrombophilia - If yes, enter type in comment: No Thrombosis Risk Factor Assessment Total Risk Factor Score: 4 Thrombosis Risk Factor Assessment Level: Moderate Risk Assessment and Plan Plan: Syncope with collapse Severe hyperglycemia on presentation Elevated troponin level on presentation Underlying history of hypertension Underlying history of hyperlipidemia Underlying history of cardiomyopathy Underlying history of atrial fibrillation Underlying history of cardiac arrhythmia was bradycardia with history of pacemaker placement Underlying history of diabetes mellitus Electrolyte imbalance on presentation with hyponatremia hyperkalemia and hypomagnesemia Previous history of stroke Positive COVID-19 PCR testing on presentation to emergency room At this time patient is admitted to telemetry floor, cardiology consultation requested Echocardiogram ordered Electrolyte correction Will follow closely
--- NOTE | 2021-06-17 14:31 | P.PN ---
Subjective Progress Note Date: 06/17/21 Moriah Tong, is an 80-year-old female who presented to [facility] emergency room with a chief complaint of syncope at home. Patient was recently [facility] from a prison, she went home and ate significant amount of candy, her sugar was up to 600, had an episode of syncope at home. She was evaluated in the emergency room vital examination on presentation revealed a temperature of 97.4 pulse 70 respiration 18 blood pressure 137/57 pulse ox 97% on room air Laboratory data revealed a white blood count of 9.9 hemoglobin 8.7 platelet count 207 sodium 128 potassium 5.2 chloride 90 CO2 32 BUN 25 creatinine 1.2 glucose level was 623 Testing in the emergency room revealed chest x-ray done in the emergency room revealed evidence of cardiomegaly no pneumothorax no pleural effusion, EKG revealed paced rhythm Patient was admitted to medical floor for further evaluation and treatment. On 06/17/2021 patient was seen and examined on the medical floor she is alert and oriented 3 in no apparent distress there is no fever or chills no headache or dizziness no chest pain no shortness of breath no cough no nausea or vomiting no abdominal pain no diarrhea and no urinary symptoms Objective - Vital Signs Vital signs: Vital Signs Temp 97.4 F L 06/17/21 12:00 Pulse 70 06/17/21 12:00 Resp 18 06/17/21 12:00 BP 111/49 06/17/21 12:00 Pulse Ox 100 06/17/21 12:00 Intake & Output 06/16/21 06/17/21 06/17/21 18:59 06:59 18:59 Output Total 200 Balance -200 Weight 72.575 kg 72.575 kg Output: Urine 200 Other: Voiding Method Diaper Diaper Incontinent Incontinent External Catheter External Catheter # Voids 1 # Bowel Movements 1 - Exam In general patient is alert and oriented x 3 in no distress HEENT head normocephalic and atraumatic Neck is supple no JVD no goiter no lymphadenopathy no carotid bruit Chest examination is clear to auscultation no crackles no wheezing Cardiac exam reveals regular heart sounds S1 and S2 no gallops no murmurs Abdomen is soft nontender no organomegaly with normal bowel sounds Extremity exam reveals no edema no cyanosis or clubbing Neurological examination reveals no gross focal deficits - Labs CBC & Chem 7: 06/17/21 08:25 06/17/21 08:25 Labs: Abnormal Lab Results - Last 24 Hours (Table) 06/16/21 06/16/21 06/17/21 Range/Units 16:43 20:32 06:23 RBC (3.80-5.40) m/uL Hgb (11.4-16.0) gm/dL Hct (34.0-46.0) % RDW (11.5-15.5) % PT (9.0-12.0) sec INR (<1.2) Sodium (137-145) mmol/L Chloride (98-107) mmol/L BUN (7-17) mg/dL Creatinine (0.52-1.04) mg/dL Glucose (74-99) mg/dL POC Glucose (mg/dL) 329 H 230 H 127 H (75-99) mg/dL Total Bilirubin (0.2-1.3) mg/dL Albumin (3.5-5.0) g/dL 06/17/21 06/17/21 06/17/21 Range/Units 08:25 08:25 08:25 RBC 3.13 L (3.80-5.40) m/uL Hgb 9.1 L (11.4-16.0) gm/dL Hct 29.4 L (34.0-46.0) % RDW 16.4 H (11.5-15.5) % PT 33.3 H (9.0-12.0) sec INR 3.3 H (<1.2) Sodium 130 L (137-145) mmol/L Chloride 95 L (98-107) mmol/L BUN 30 H (7-17) mg/dL Creatinine 1.66 H (0.52-1.04) mg/dL Glucose 139 H (74-99) mg/dL POC Glucose (mg/dL) (75-99) mg/dL Total Bilirubin 1.5 H (0.2-1.3) mg/dL Albumin 2.9 L (3.5-5.0) g/dL 06/17/21 Range/Units 11:53 RBC (3.80-5.40) m/uL Hgb (11.4-16.0) gm/dL Hct (34.0-46.0) % RDW (11.5-15.5) % PT (9.0-12.0) sec INR (<1.2) Sodium (137-145) mmol/L Chloride (98-107) mmol/L BUN (7-17) mg/dL Creatinine (0.52-1.04) mg/dL Glucose (74-99) mg/dL POC Glucose (mg/dL) 167 H (75-99) mg/dL Total Bilirubin (0.2-1.3) mg/dL Albumin (3.5-5.0) g/dL Assessment and Plan Plan: Syncope with collapse Severe hyperglycemia on presentation Elevated troponin level on presentation Underlying history of hypertension Underlying history of hyperlipidemia Underlying history of cardiomyopathy Underlying history of atrial fibrillation Underlying history of cardiac arrhythmia was bradycardia with history of pacemaker placement Underlying history of diabetes mellitus Electrolyte imbalance on presentation with hyponatremia hyperkalemia and hypomagnesemia Previous history of stroke Positive COVID-19 PCR testing on presentation to emergency room At this time patient is admitted to telemetry floor, cardiology consultation requested Echocardiogram ordered Electrolyte correction Will follow closely
[2021-06-17 16:27] LABS: Glucose,Whole Blood 161 mg/dL (75-99)
[2021-06-17] MEDS ORDERED: WARFARIN 0.5 MG TAB PO ONE (18:00)
[2021-06-17 20:49] LABS: Glucose,Whole Blood 201 mg/dL (75-99)
[2021-06-17] MEDS: ATORVASTATIN 10 MG TAB PO SCH (20:58)
[2021-06-17] MEDS: MONTELUKAST 10 MG TAB PO SCH (20:58)
[2021-06-17] MEDS: MAGNESIUM OXIDE 400 MG TAB PO SCH (20:58)
[2021-06-17 21:07] LABS: % Iron Saturation 16.85 (12.00-45.00)
[2021-06-18] MEDS: ACETAMINOPHEN TAB 500 MG TAB PO PRN ×2 (00:04→12:44)
[2021-06-18 00:22] LABS: Folate, Serum 6.3 ng/mL (4.40-31.00)
[2021-06-18 06:30] LABS: Glucose,Whole Blood 91 mg/dL (75-99)
[2021-06-18] MEDS: INSULIN ASPART (NovoLOG) 100 UNIT/ML VIAL SQ SCH ×4 (06:39→21:02)
[2021-06-18] MEDS: glipiZIDE 10 MG TAB PO SCH ×2 (06:45→17:11)
[2021-06-18 08:09] LABS: Anisocytosis Slight; Basophils % (A) 0 %; Eosinophils # (A) 0.1 k/uL (0-0.7); Eosinophils % (A) 1 %; HCT 28.1 % (34.0-46.0); Hypochromasia Moderate; Lymphocytes # (A) 1.2 k/uL (1.0-4.8); Lymphocytes % (A) 17 %; MCH 29.9 pg (25.0-35.0); MCHC 32.1 g/dL (31.0-37.0); Mean Platelet Volume 10.2; Monocytes # (A) 0.5 k/uL (0-1.0); Monocytes % (A) 7 %; Neutrophils # (A) 5.3 k/uL (1.3-7.7); Neutrophils % (A) 73 %; Platelet Count 189 k/uL (150-450); RBC 3.02 m/uL (3.80-5.40); WBC 7.2 k/uL (3.8-10.6)
[2021-06-18 08:10] LABS: Albumin 2.9 g/dL (3.5-5.0); Calcium 9.5 mg/dL (8.4-10.2); Potassium 4.4 mmol/L (3.5-5.1); Total Bilirubin 1.4 mg/dL (0.2-1.3); Total Protein 6.5 g/dL (6.3-8.2)
[2021-06-18] MEDS: CALCIUM CARBONATE 500 MG CHEWABLE PO SCH (08:43)
[2021-06-18] MEDS: carvediloL 12.5 MG TAB PO SCH ×2 (08:43→21:02)
[2021-06-18] MEDS: VITAMIN E (DL,TOCOPHERYL ACET) 400 UNIT (180 MG) CAP PO SCH (08:43)
[2021-06-18] MEDS: LOSARTAN 50 MG TAB PO SCH (08:43)
[2021-06-18] MEDS: metFORMIN 500 MG TAB PO SCH ×2 (08:43→17:10)
[2021-06-18] MEDS: CHOLECALCIFEROL 125 MCG (5000 IU) TABLET PO SCH (08:43)
[2021-06-18] MEDS: FERROUS SULFATE 325 MG TAB PO SCH ×2 (08:43→21:02)
[2021-06-18] MEDS ORDERED: FUROSEMIDE 20 MG TAB PO SCH (09:00)
[2021-06-18 09:06] LABS: INR 3.2 (<1.2)
[2021-06-18 11:30] LABS: Glucose,Whole Blood 158 mg/dL (75-99)
--- NOTE | 2021-06-18 12:46 | P.PN ---
Subjective Progress Note Date: 06/18/21 PROGRESS NOTE the patient is an 80-year-old female with history of atrial fibrillation, permanent pacemaker implantation, prior history of cardiomyopathy that improved, her echocardiogram showed a preserved systolic function. She's feeling better today. She denies any chest discomfort, dizziness or palpitations. She has no nausea or vomiting. She continues to be on atorvastatin 10 mg daily, carvedilol 25 mg twice a day, Lasix 20 mg daily, losartan 50 mg daily, Coumadin, metformin PHYSICAL EXAMINATION: Blood pressure 105/60 heart rate [70] LUNGS: [Clear to auscultation] HEART: [Regular rate and rhythm, paced S1, S2. No S3. systolic murmur at the base] ABDOMEN: [Soft, nontender, no organomegaly] EXTREMETIES: [No edema] LAB: INR 3.2 IMPRESSION: 1. [ Mild troponin elevation with no evidence of acute cord syndrome] 2. [ Recent COVID-19 infection] 3. [ Prior history of cardiomyopathy, improved] 4. [ Chronic persistent atrial fibrillation, anticoagulated with permanent pacemaker implantation] PLAN: 1. Continue present therapy 2. Probable discharged home today and follow-up with her primary yarn man. Objective - Vital Signs Vital signs: Vital Signs Temp 97.6 F 06/18/21 08:00 Pulse 70 06/18/21 08:00 Resp 16 06/18/21 08:00 BP 105/62 06/18/21 08:00 Pulse Ox 99 06/18/21 08:28 Intake & Output 06/17/21 06/18/21 06/18/21 18:59 06:59 18:59 Output Total 50 Balance -50 Weight 72.575 kg Output: Urine 50 Other: Voiding Method External Catheter External Catheter External Catheter # Voids 0 - Labs CBC & Chem 7: 06/18/21 07:33 06/18/21 07:33 Labs: Abnormal Lab Results - Last 24 Hours (Table) 06/17/21 06/17/21 06/17/21 Range/Units 08:10 16:26 20:23 RBC (3.80-5.40) m/uL Hgb (11.4-16.0) gm/dL Hct (34.0-46.0) % RDW (11.5-15.5) % PT (9.0-12.0) sec INR (<1.2) Sodium (137-145) mmol/L Chloride (98-107) mmol/L BUN (7-17) mg/dL Creatinine (0.52-1.04) mg/dL Glucose (74-99) mg/dL POC Glucose (mg/dL) 161 H 201 H (75-99) mg/dL Iron 38 L (50-170) ug/dL TIBC 223 L (228-460) ug/dL Transferrin 159.0 L (204.0-354.0) mg/dL Total Bilirubin (0.2-1.3) mg/dL Albumin (3.5-5.0) g/dL Vitamin B12 1749.0 H (200.0-944.0) pg/mL 06/18/21 06/18/21 06/18/21 Range/Units 07:33 07:33 08:22 RBC 3.02 L (3.80-5.40) m/uL Hgb 9.0 L (11.4-16.0) gm/dL Hct 28.1 L (34.0-46.0) % RDW 17.0 H (11.5-15.5) % PT 32.0 H (9.0-12.0) sec INR 3.2 H (<1.2) Sodium 127 L (137-145) mmol/L Chloride 94 L (98-107) mmol/L BUN 34 H (7-17) mg/dL Creatinine 2.08 H (0.52-1.04) mg/dL Glucose 118 H (74-99) mg/dL POC Glucose (mg/dL) (75-99) mg/dL Iron (50-170) ug/dL TIBC (228-460) ug/dL Transferrin (204.0-354.0) mg/dL Total Bilirubin 1.4 H (0.2-1.3) mg/dL Albumin 2.9 L (3.5-5.0) g/dL Vitamin B12 (200.0-944.0) pg/mL 06/18/21 Range/Units 11:29 RBC (3.80-5.40) m/uL Hgb (11.4-16.0) gm/dL Hct (34.0-46.0) % RDW (11.5-15.5) % PT (9.0-12.0) sec INR (<1.2) Sodium (137-145) mmol/L Chloride (98-107) mmol/L BUN (7-17) mg/dL Creatinine (0.52-1.04) mg/dL Glucose (74-99) mg/dL POC Glucose (mg/dL) 158 H (75-99) mg/dL Iron (50-170) ug/dL TIBC (228-460) ug/dL Transferrin (204.0-354.0) mg/dL Total Bilirubin (0.2-1.3) mg/dL Albumin (3.5-5.0) g/dL Vitamin B12 (200.0-944.0) pg/mL
[2021-06-18] MEDS ORDERED: SODIUM CHLORIDE 0.9% 1,000 ML IV STA (12:50)
--- NOTE | 2021-06-18 13:04 | P.PN ---
Subjective Progress Note Date: 06/18/21 Moriah Tong, is an 80-year-old female who presented to [facility] emergency room with a chief complaint of syncope at home. Patient was recently discharged from a longterm, she went home and ate significant amount of candy, her sugar was up to 600, had an episode of syncope at home. She was evaluated in the emergency room vital examination on presentation revealed a temperature of 97.4 pulse 70 respiration 18 blood pressure 137/57 pulse ox 97% on room air Laboratory data revealed a white blood count of 9.9 hemoglobin 8.7 platelet count 207 sodium 128 potassium 5.2 chloride 90 CO2 32 BUN 25 creatinine 1.2 glucose level was 623 Testing in the emergency room revealed chest x-ray done in the emergency room revealed evidence of cardiomegaly no pneumothorax no pleural effusion, EKG revealed paced rhythm Patient was admitted to medical floor for further evaluation and treatment. On 06/17/2021 patient was seen and examined on the medical floor she is alert and oriented 3 in no apparent distress there is no fever or chills no headache or dizziness no chest pain no shortness of breath no cough no nausea or vomiting no abdominal pain no diarrhea and no urinary symptoms. On 06/18/2021 patient was seen and examined on the medical floor she is alert and oriented 3 in no apparent distress she is complaining of pain in the sacral area, where patient has an open ulcer, she is complaining of generalized fatigue and weakness, her kidney function has deteriorated since yesterday, creatinine is up to 2.08, sodium is low at 127 otherwise patient denies any complaints the re is no fever or chills no headache or dizziness no chest pain no shortness of breath no cough no nausea or vomiting no abdominal pain no diarrhea and no urinary symptoms Objective - Vital Signs Vital signs: Vital Signs Temp 97.6 F 06/18/21 08:00 Pulse 70 06/18/21 08:00 Resp 16 06/18/21 08:00 BP 105/62 06/18/21 08:00 Pulse Ox 99 06/18/21 08:28 Intake & Output 06/17/21 06/18/21 06/18/21 18:59 06:59 18:59 Output Total 50 Balance -50 Weight 72.575 kg Output: Urine 50 Other: Voiding Method External Catheter External Catheter External Catheter # Voids 0 - Exam In general patient is alert and oriented x 3 in no distress HEENT head normocephalic and atraumatic Neck is supple no JVD no goiter no lymphadenopathy no carotid bruit Chest examination is clear to auscultation no crackles no wheezing Cardiac exam reveals regular heart sounds S1 and S2 no gallops no murmurs Abdomen is soft nontender no organomegaly with normal bowel sounds Extremity exam reveals no edema no cyanosis or clubbing Neurological examination reveals no gross focal deficits - Labs CBC & Chem 7: 06/18/21 07:33 06/18/21 07:33 Labs: Abnormal Lab Results - Last 24 Hours (Table) 06/17/21 06/17/21 06/17/21 Range/Units 08:10 16:26 20:23 RBC (3.80-5.40) m/uL Hgb (11.4-16.0) gm/dL Hct (34.0-46.0) % RDW (11.5-15.5) % PT (9.0-12.0) sec INR (<1.2) Sodium (137-145) mmol/L Chloride (98-107) mmol/L BUN (7-17) mg/dL Creatinine (0.52-1.04) mg/dL Glucose (74-99) mg/dL POC Glucose (mg/dL) 161 H 201 H (75-99) mg/dL Iron 38 L (50-170) ug/dL TIBC 223 L (228-460) ug/dL Transferrin 159.0 L (204.0-354.0) mg/dL Total Bilirubin (0.2-1.3) mg/dL Albumin (3.5-5.0) g/dL Vitamin B12 1749.0 H (200.0-944.0) pg/mL 06/18/21 06/18/21 06/18/21 Range/Units 07:33 07:33 08:22 RBC 3.02 L (3.80-5.40) m/uL Hgb 9.0 L (11.4-16.0) gm/dL Hct 28.1 L (34.0-46.0) % RDW 17.0 H (11.5-15.5) % PT 32.0 H (9.0-12.0) sec INR 3.2 H (<1.2) Sodium 127 L (137-145) mmol/L Chloride 94 L (98-107) mmol/L BUN 34 H (7-17) mg/dL Creatinine 2.08 H (0.52-1.04) mg/dL Glucose 118 H (74-99) mg/dL POC Glucose (mg/dL) (75-99) mg/dL Iron (50-170) ug/dL TIBC (228-460) ug/dL Transferrin (204.0-354.0) mg/dL Total Bilirubin 1.4 H (0.2-1.3) mg/dL Albumin 2.9 L (3.5-5.0) g/dL Vitamin B12 (200.0-944.0) pg/mL 06/18/21 Range/Units 11:29 RBC (3.80-5.40) m/uL Hgb (11.4-16.0) gm/dL Hct (34.0-46.0) % RDW (11.5-15.5) % PT (9.0-12.0) sec INR (<1.2) Sodium (137-145) mmol/L Chloride (98-107) mmol/L BUN (7-17) mg/dL Creatinine (0.52-1.04) mg/dL Glucose (74-99) mg/dL POC Glucose (mg/dL) 158 H (75-99) mg/dL Iron (50-170) ug/dL TIBC (228-460) ug/dL Transferrin (204.0-354.0) mg/dL Total Bilirubin (0.2-1.3) mg/dL Albumin (3.5-5.0) g/dL Vitamin B12 (200.0-944.0) pg/mL Assessment and Plan Plan: Syncope with collapse Severe hyperglycemia on presentation Elevated troponin level on presentation Underlying history of hypertension Underlying history of hyperlipidemia Underlying history of cardiomyopathy Underlying history of atrial fibrillation Underlying history of cardiac arrhythmia was bradycardia with history of p acemaker placement Underlying history of diabetes mellitus Electrolyte imbalance on presentation with hyponatremia hyperkalemia and hypomagnesemia Previous history of stroke Positive COVID-19 PCR testing on presentation to emergency room Acute kidney injury with hyponatremia At this time patient is admitted to telemetry floor, cardiology consultation requested Echocardiogram ordered Electrolyte correction Will follow closely
[2021-06-18] MEDS: HYDROmorphone 1 MG/ML 1 ML SYRINGE IVP PRN ×2 (13:47→23:32)
[2021-06-18 16:55] LABS: Glucose,Whole Blood 41 mg/dL (75-99)
[2021-06-18 16:55] LABS: Glucose,Whole Blood 39 mg/dL (75-99)
[2021-06-18] MEDS ORDERED: DEXTROSE 50% SYRINGE 50 ML IVP ONE (16:55)
[2021-06-18 17:12] LABS: Glucose,Whole Blood 180 mg/dL (75-99)
[2021-06-18] MEDS ORDERED: WARFARIN 0.5 MG TAB PO ONE (18:00)
[2021-06-18 20:43] LABS: Glucose,Whole Blood 315 mg/dL (75-99)
[2021-06-18] MEDS: ATORVASTATIN 10 MG TAB PO SCH (21:02)
[2021-06-18] MEDS: MONTELUKAST 10 MG TAB PO SCH (21:02)
[2021-06-18] MEDS: MAGNESIUM OXIDE 400 MG TAB PO SCH (21:02)
--- NOTE | 2021-06-19 00:17 | P.CONS ---
History of Present Illness - Reason for Consult Consult date: 06/18/21 sacral pressure ulcer Requesting physician: Tori Barney - Chief Complaint passed out x 1 day - History of Present Illness History of present illness : Patient is 80-year female was brought into the ER 3 days ago for evaluation of an syncopal episode at home patient did not recall feeling abnormal at all before passing out and did not have any seizure activity currently symptom is going on for about 15 minutes patient was discharged from [facility] the day EMS was called Darryl for the symptoms on arrival to the ER the patient was afebrile and no fever has been recorded subsequently patient also do not have any hypoxemia or need for supplemental oxygen patient did have a normal white count with some lymphopenia initially but that has resolved INR has been on the high side did have elevated BUN and creatinine level exams are normal urine has been negative patient did have positive Covid test apparently the patient did have a Covid when she was at the [facility] however the patient not able to confirm that to me patient did have a chest x-ray on admission which is suspect improvement in the volume status there is a cardiomegaly, patient did have a sacral pressure ulcer for the patient has been evaluated by the wound care team currently being treated with cas consult was placed infectious disease today for further evaluation of this sacral wound patient currently do not have significant symptoms to the wound area except some pain around foul-smelling drainage in the patient is currently not on any systemic antibiotic therapy Review of system: CONSTITUTIONAL: Positive for weakness no fever. EYES: No complaint. ENT: No complaint. RESPIRATORY: No complaint. CARDIOVASCULAR: As per history of present illness. GENITOURINARY: No complaint. GASTROINTESTINAL: No complaint. MUSCULOSKELETAL: No complaint. INTEGUMENTARY: As per history of present illness. PSYCHOLOGIC: No complaint. ENDOCRINE: No complaint. NEUROLOGIC: No complaint. Past medical history : Reviewed, documented below Past surgical history : Reviewed, documented below Social history: Reviewed, documented below Medications: Reviewed, as documented below EXAMINATION: Vital sigans= Reviewed and documented below GENERAL DESCRIPTION: Elderly female lying in bed, no distress. No tachypnea or accessory muscle of respiration use. HEENT: Shows Pallor , no scleral icterus. Oral mucous membrane is dry. NECK: Trachea central, no thyromegaly. LUNGS: Unlabored breathing. Decrease intensity of breath sounds. No wheeze or crackle. HEART: S1, S2, regular rate and rhythm. ABDOMEN: Soft, no tenderness , guarding or rigidity EXTREMITIES: No edema of feet. SKIN: No rash, no masses palpable. Patient did have a sacral pressure ulcer with some slough tissue no significant surrounding redness or any drainage NEUROLOGICAL: The patient is awake, alert, oriented x3, mood and affect normal. LABS AND RADIOLOGY: Reviewed results see below Assessment : 1patient with a stage II right gluteal pressure ulcer with slough tissue but no evidence of any secondary cellulitis. 2patient with a stage II sacral pressure ulcer with slough tissue but no cellulitis, no need for systemic antibiotic therapy Plan: 1-local wound care to continue with the Thera honey followed by moist dressing and keep the area of the pressure 2-no need for systemic antibiotic therapy We will follow on clinical condition and cultures to further adjust medication if needed Thank you for this consultation we will follow the patient along with you Past Medical History Past Medical History: Atrial Fibrillation, Asthma, Heart Failure, CVA/TIA, Diabetes Mellitus, Hyperlipidemia, Hypertension, Osteoarthritis (OA), Pneumonia Additional Past Medical History / Comment(s): Pt was recently hospitalized at [facility] on 06/04/21 with UTI, bilateral multiple kidney stones and covid. Other hx:Covid + recently, but son states pt had been moved out of [facility]'s covid unit prior to her discharge from there yesterday. Other hx: Current R heel wound, document states buttock decub, CVAs-son states no deficits, bradycardia with pacemaker, pulmonary hypertension, NIDDM type II, multiple UTIs History of Any Multi-Drug Resistant Organisms: None Reported Past Surgical History: Appendectomy, Cholecystectomy, Orthopedic Surgery, Pacemaker, Tonsillectomy Additional Past Surgical History / Comment(s): Bilateral total knee replacements, bilateral carpal tunnel releases, colonoscopy, pacer placed at [facility]/date unknown Past Anesthesia/Blood Transfusion Reactions: No Reported Reaction Type of Cardiac Device: Permanent Pacemaker Device Placement Date:: cannot recall Smoking Status: Former smoker - Past Family History Son(s) Family Medical History: Myocardial Infarction ([place]) Additional Family Medical History / Comment(s): Son had a [place] at the age of 47 yrs. Mother Family Medical History: Cancer Father Family Medical History: Cancer Medications and Allergies Home Medications Medication Instructions Recorded Confirmed Type Carvedilol [Coreg] 25 mg PO BID 05/08/17 06/15/21 History Atorvastatin [Lipitor] 10 mg PO HS tab 05/11/17 06/15/21 Rx Montelukast [Singulair] 10 mg PO HS #30 tab 02/03/19 06/15/21 Rx Losartan Potassium [Cozaar] 50 mg PO DAILY 01/15/21 06/15/21 History Furosemide [Lasix] 40 mg PO DAILY 05/24/21 06/15/21 History Warfarin [Coumadin] 5 mg PO HS 05/24/21 06/15/21 History Acetaminophen Tab [Tylenol Tab] 500 mg PO Q6H PRN 06/15/21 06/15/21 History Calcium Carbonate [Calcium] 600 mg PO DAILY 06/15/21 06/15/21 History Cholecalciferol [Vitamin D3 (125 125 mcg PO DAILY 06/15/21 06/15/21 History Mcg = 5000 Iu)] Cranberry 4200 Mg 4,200 mg PO DAILY 06/15/21 06/15/21 History Cyanocobalamin [Vitamin B-12] 500 - 1,000 mcg PO DAILY 06/15/21 06/15/21 History Ferrous Sulfate [Feosol] 325 mg PO BID 06/15/21 06/15/21 History Magnesium 250 mg PO HS 06/15/21 06/15/21 History Vitamin E (Dl,Tocopheryl Acet) 400 unit PO DAILY 06/15/21 06/15/21 History [Vitamin E (400 Iu = 180 mg)] glipiZIDE [Glucotrol] 10 mg PO AC-BID 06/15/21 06/15/21 History metFORMIN HCL 500 mg PO TID 06/15/21 06/15/21 History Allergies Allergy/AdvReac Type Severity Reaction Status Date / Time influenza virus vaccine qs Allergy Unknown Unknown Verified 06/15/21 12:40 2016- (36 months up) [From Fluarix Quad 6072-7735 ()] aspirin Allergy Unknown Verified 06/15/21 12:40 egg Allergy Diarrhea Verified 06/17/21 18:47 Penicillins Allergy Rash/Hives Verified 06/15/21 12:40 radish Allergy Rash/Hives Verified 06/15/21 12:40 red dye Allergy Unknown Verified 06/15/21 12:40 Physical Exam Vitals: Vital Signs Temp Pulse Resp BP Pulse Ox 02/05/22 12:00 98 F 70 17 95/49 99 06/18/21 08:28 99 06/18/21 08:00 97.6 F 70 16 105/62 98 06/18/21 04:45 97.7 F 70 16 138/63 99 06/18/21 00:00 71 16 112/60 99 06/17/21 20:00 98 F 72 16 104/64 96 Intake and Output 06/18/21 06/18/21 06/18/21 06:59 14:59 22:59 Other: Voiding Method External Catheter External Catheter # Voids 0 Results CBC & Chem 7: 06/18/21 07:33 06/18/21 07:33 Labs: Abnormal Lab Results - Last 24 Hours (Table) 06/17/21 06/17/21 06/18/21 Range/Units 08:10 20:23 07:33 RBC (3.80-5.40) m/uL Hgb (11.4-16.0) gm/dL Hct (34.0-46.0) % RDW (11.5-15.5) % PT (9.0-12.0) sec INR (<1.2) Sodium 127 L (137-145) mmol/L Chloride 94 L (98-107) mmol/L BUN 34 H (7-17) mg/dL Creatinine 2.08 H (0.52-1.04) mg/dL Glucose 118 H (74-99) mg/dL POC Glucose (mg/dL) 201 H (75-99) mg/dL Iron 38 L (50-170) ug/dL TIBC 223 L (228-460) ug/dL Transferrin 159.0 L (204.0-354.0) mg/dL Total Bilirubin 1.4 H (0.2-1.3) mg/dL Albumin 2.9 L (3.5-5.0) g/dL Vitamin B12 1749.0 H (200.0-944.0) pg/mL 06/18/21 06/18/21 06/18/21 Range/Units 07:33 08:22 11:29 RBC 3.02 L (3.80-5.40) m/uL Hgb 9.0 L (11.4-16.0) gm/dL Hct 28.1 L (34.0-46.0) % RDW 17.0 H (11.5-15.5) % PT 32.0 H (9.0-12.0) sec INR 3.2 H (<1.2) Sodium (137-145) mmol/L Chloride (98-107) mmol/L BUN (7-17) mg/dL Creatinine (0.52-1.04) mg/dL Glucose (74-99) mg/dL POC Glucose (mg/dL) 158 H (75-99) mg/dL Iron (50-170) ug/dL TIBC (228-460) ug/dL Transferrin (204.0-354.0) mg/dL Total Bilirubin (0.2-1.3) mg/dL Albumin (3.5-5.0) g/dL Vitamin B12 (200.0-944.0) pg/mL 06/18/21 06/18/21 Range/Units 16:53 16:54 RBC (3.80-5.40) m/uL Hgb (11.4-16.0) gm/dL Hct (34.0-46.0) % RDW (11.5-15.5) % PT (9.0-12.0) sec INR (<1.2) Sodium (137-145) mmol/L Chloride (98-107) mmol/L BUN (7-17) mg/dL Creatinine (0.52-1.04) mg/dL Glucose (74-99) mg/dL POC Glucose (mg/dL) 41 L 39 L (75-99) mg/dL Iron (50-170) ug/dL TIBC (228-460) ug/dL Transferrin (204.0-354.0) mg/dL Total Bilirubin (0.2-1.3) mg/dL Albumin (3.5-5.0) g/dL Vitamin B12 (200.0-944.0) pg/mL
[2021-06-19 06:42] LABS: Glucose,Whole Blood 164 mg/dL (75-99)
[2021-06-19] MEDS: glipiZIDE 10 MG TAB PO SCH ×2 (06:51→16:49)
[2021-06-19] MEDS: INSULIN ASPART (NovoLOG) 100 UNIT/ML VIAL SQ SCH ×4 (06:51→21:06)
[2021-06-19] MEDS: HYDROmorphone 1 MG/ML 1 ML SYRINGE IVP PRN ×3 (06:52→23:39)
[2021-06-19] MEDS: VITAMIN E (DL,TOCOPHERYL ACET) 400 UNIT (180 MG) CAP PO SCH (08:24)
[2021-06-19] MEDS: carvediloL 12.5 MG TAB PO SCH ×2 (08:24→21:06)
[2021-06-19] MEDS: FERROUS SULFATE 325 MG TAB PO SCH ×2 (08:24→21:06)
[2021-06-19] MEDS: CALCIUM CARBONATE 500 MG CHEWABLE PO SCH (08:24)
[2021-06-19] MEDS: CHOLECALCIFEROL 125 MCG (5000 IU) TABLET PO SCH (08:24)
[2021-06-19 08:25] LABS: Anisocytosis Slight; Basophils % (A) 0 %; Eosinophils # (A) 0.1 k/uL (0-0.7); Eosinophils % (A) 1 %; HCT 28.8 % (34.0-46.0); HGB 8.7 gm/dL (11.4-16.0); Hypochromasia Marked; Lymphocytes # (A) 1.1 k/uL (1.0-4.8); Lymphocytes % (A) 12 %; MCH 28.6 pg (25.0-35.0); MCHC 30.3 g/dL (31.0-37.0); MCV 94.4 fL (80.0-100.0); Mean Platelet Volume 9.7; Monocytes # (A) 0.6 k/uL (0-1.0); Monocytes % (A) 6 %; Neutrophils % (A) 78 %; Platelet Count 214 k/uL (150-450); RBC 3.05 m/uL (3.80-5.40); RDW 16.9 % (11.5-15.5); WBC 8.9 k/uL (3.8-10.6)
[2021-06-19 08:41] LABS: Albumin 2.8 g/dL (3.5-5.0); Calcium 9.1 mg/dL (8.4-10.2); Total Bilirubin 1.3 mg/dL (0.2-1.3); Total Protein 6.4 g/dL (6.3-8.2)
[2021-06-19 09:00] LABS: INR 3.1 (<1.2); Prothrombin Time 31.1 sec (9.0-12.0)
--- NOTE | 2021-06-19 09:15 | P.NPCON ---
History of Present Illness - Reason for Consult acute renal failure - History of Present Illness Reason for consultation: Acute kidney injury and hyponatremia History of present illness: Patient is a 80-year-old female seen in renal consultation for acute kidney injury and hyponatremia. Sodium level has been low this admission in the range of 127 to 130. It is down to 124 today. Renal function is also been worsening. Creatinine was 1.1 admission and is 2.37 today. Patient has not urinated overnight according to the nurse. Bladder scan revealed under 200 mL of urine. Patient presented to the hospital on 06/15/2021 after a syncopal episode. She is currently resting in bed. She is moaning in pain due to sore on her buttock. Oral intake has been poor. She is on room air. Blood pressure stable. She was receiving diuretics as well as losartan which were both discontinued yesterday. She was started on normal saline at 75 mL an hour yesterday. She does have history of diabetes and takes metformin which is currently held. Blood sugar 143 today. I don't see any nonsteroidals in her home medication list. Vital signs are stable. General: The patient appeared well nourished and normally developed. HEENT: Head exam is unremarkable. LUNGS: Breath sounds decreased. HEART: Rate and Rhythm are regular. ABDOMEN: Soft, no distention. EXTREMITITES: No edema. Past Medical History Past Medical History: Atrial Fibrillation, Asthma, Heart Failure, CVA/TIA, Diabetes Mellitus, Hyperlipidemia, Hypertension, Osteoarthritis (OA), Pneumonia Additional Past Medical History / Comment(s): Pt was recently hospitalized at [facility] on 06/04/21 with UTI, bilateral multiple kidney stones and covid. Other hx:Covid + recently, but son states pt had been moved out of [facility]'s covid unit prior to her discharge from there yesterday. Other hx: Current R heel wound, document states buttock decub, CVAs-son states no deficits, bradycardia with pacemaker, pulmonary hypertension, NIDDM type II, multiple UTIs History of Any Multi-Drug Resistant Organisms: None Reported Past Surgical History: Appendectomy, Cholecystectomy, Orthopedic Surgery, Pacemaker, Tonsillectomy Additional Past Surgical History / Comment(s): Bilateral total knee replacements, bilateral carpal tunnel releases, colonoscopy, pacer placed at [facility]/date unknown Past Anesthesia/Blood Transfusion Reactions: No Reported Reaction Type of Cardiac Device: Permanent Pacemaker Device Placement Date:: cannot recall Smoking Status: Former smoker - Past Family History Son(s) Family Medical History: Myocardial Infarction ([place]) Additional Family Medical History / Comment(s): Son had a [place] at the age of 47 yrs. Mother Family Medical History: Cancer Father Family Medical History: Cancer Medications and Allergies Home Medications Medication Instructions Recorded Confirmed Type Carvedilol [Coreg] 25 mg PO BID 05/08/17 06/15/21 History Atorvastatin [Lipitor] 10 mg PO HS tab 05/11/17 06/15/21 Rx Montelukast [Singulair] 10 mg PO HS #30 tab 02/03/19 06/15/21 Rx Losartan Potassium [Cozaar] 50 mg PO DAILY 01/15/21 06/15/21 History Furosemide [Lasix] 40 mg PO DAILY 05/24/21 06/15/21 History Warfarin [Coumadin] 5 mg PO HS 05/24/21 06/15/21 History Acetaminophen Tab [Tylenol Tab] 500 mg PO Q6H PRN 06/15/21 06/15/21 History Calcium Carbonate [Calcium] 600 mg PO DAILY 06/15/21 06/15/21 History Cholecalciferol [Vitamin D3 (125 125 mcg PO DAILY 06/15/21 06/15/21 History Mcg = 5000 Iu)] Cranberry 4200 Mg 4,200 mg PO DAILY 06/15/21 06/15/21 History Cyanocobalamin [Vitamin B-12] 500 - 1,000 mcg PO DAILY 06/15/21 06/15/21 History Ferrous Sulfate [Feosol] 325 mg PO BID 06/15/21 06/15/21 History Magnesium 250 mg PO HS 06/15/21 06/15/21 History Vitamin E (Dl,Tocopheryl Acet) 400 unit PO DAILY 06/15/21 06/15/21 History [Vitamin E (400 Iu = 180 mg)] glipiZIDE [Glucotrol] 10 mg PO AC-BID 06/15/21 06/15/21 History metFORMIN HCL 500 mg PO TID 06/15/21 06/15/21 History Allergies Allergy/AdvReac Type Severity Reaction Status Date / Time influenza virus vaccine qs Allergy Unknown Unknown Verified 06/15/21 12:40 (36 months up) [From Fluarix Quad 5802-0674 (PF)] aspirin Allergy Unknown Verified 06/15/21 12:40 egg Allergy Diarrhea Verified 06/17/21 18:47 Penicillins Allergy Rash/Hives Verified 06/15/21 12:40 radish Allergy Rash/Hives Verified 06/15/21 12:40 red dye Allergy Unknown Verified 06/15/21 12:40 Physical Exam Vitals: Vital Signs Temp Pulse Resp BP Pulse Ox 06/19/21 03:50 97.4 F L 72 15 103/61 97 06/18/21 23:00 69 16 125/72 100 06/18/21 20:45 97.5 F L 70 16 109/56 99 06/18/21 16:00 70 16 120/64 98 06/18/21 12:00 98 F 70 17 95/49 99 Intake and Output 06/18/21 06/19/21 06/19/21 22:59 06:59 14:59 Intake Total 540 Output Total 0 Balance 540 0 Intake: Oral 540 Output: Urine 0 Other: Voiding Method Diaper Diaper # Bowel Movements 1 Results - Lab Results Most recent lab results Calcium 9.1 mg/dL (8.4-10.2) 06/19/21 08:01 Magnesium 1.5 mg/dL (1.6-2.3) L 06/15/21 12:50 06/19/21 08:01 06/19/21 08:01 Assessment and Plan Plan: Assessment: 1. Acute kidney injury secondary to ATN secondary to poor intake, losartan and diuretics. Creatinine was 1.1 admission and is 2.37 today. No evidence of urinary retention. No proteinuria on UA. 2. Hyponatremia secondary to acute kidney injury. Also component of poor solute intake and SIADH from pain/infection. 3. Syncopal episode. 4. Diabetes mellitus. 5. Anemia with iron deficiency. 6. COVID-19 infection. Plan: Check renal ultrasound. Lasix and Cozaar stopped 06/18/2021. 1200 mL fluid restriction. Encouraged oral intake. Check serum and urine osmolality and urine sodium level. Maintain IV fluids for now. Add IV iron. Repeat labs this afternoon. Thank you for the consultation. I will continue to follow the patient with you during her hospital stay.
--- NOTE | 2021-06-19 10:40 | US ---
EXAMINATION TYPE: US kidneys/renal and bladder DATE OF EXAM: 06/19/2021 COMPARISON: CT abdomen and pelvis May 24, 2021 CLINICAL HISTORY: [email or web address]. Abnormal labs. Patient is laying completely LLD and unable to turn. EXAM MEASUREMENTS: Right Kidney: 10.2 x 5.3 x 5.1 cm Left Kidney: 9.3 x 4.7 x 4.6 cm Right Kidney: Upper cortical lateral cyst- 0.8 x 0.9 x 0.8 cm Left Kidney: Limited visualization due to patient position. Possible lower pole stone = 0.7 cm Bladder: distended. Anechoic. Possible stone = 1.1 x 0.8 cm Bilateral Jets not imaged Suboptimal study due to patient limited mobility. Technologist alcaraz incidental subcentimeter thin-wa lled cyst in the upper pole right kidney. No obvious right-sided hydronephrosis. Bladder shows mild d istention with suspected 1.0 cm intraluminal calculus. Poor visualization of left kidney on images sa marko. There is shadowing central calculus suspected. IMPRESSION: Suboptimal study particularly left kidney. No significant right-sided hydronephrosis.
[2021-06-19 11:46] LABS: Glucose,Whole Blood 223 mg/dL (75-99)
[2021-06-19] MEDS: SODIUM FERRIC GLUCONAT-SUCROSE 125 MG in SODIUM CHLORIDE 0.9% 100 ML IVPB SCH (12:08)
[2021-06-19] MEDS: SODIUM CHLORIDE 0.9% 1,000 ML IV SCH ×2 (12:08→23:40)
--- NOTE | 2021-06-19 14:45 | P.PN ---
Subjective Progress Note Date: 06/19/21 Moriah Tong, is an 80-year-old female who presented to [facility] emergency room with a chief complaint of syncope at home. Patient was recently discharged from a senior living, she went home and ate significant amount of candy, her sugar was up to 600, had an episode of syncope at home. She was evaluated in the emergency room vital examination on presentation revealed a temperature of 97.4 pulse 70 respiration 18 blood pressure 137/57 pulse ox 97% on room air Laboratory data revealed a white blood count of 9.9 hemoglobin 8.7 platelet count 207 sodium 128 potassium 5.2 chloride 90 CO2 32 BUN 25 creatinine 1.2 glucose level was 623 Testing in the emergency room revealed chest x-ray done in the emergency room revealed evidence of cardiomegaly no pneumothorax no pleural effusion, EKG revealed paced rhythm Patient was admitted to medical floor for further evaluation and treatment. On 06/17/2021 patient was seen and examined on the medical floor she is alert and oriented 3 in no apparent distress there is no fever or chills no headache or dizziness no chest pain no shortness of breath no cough no nausea or vomiting no abdominal pain no diarrhea and no urinary symptoms. On 06/18/2021 patient was seen and examined on the medical floor she is alert and oriented 3 in no apparent distress she is complaining of pain in the sacral area, where patient has an open ulcer, she is complaining of generalized fatigue and weakness, her kidney function has deteriorated since yesterday, creatinine is up to 2.08, sodium is low at 127 otherwise patient denies any complaints the re is no fever or chills no headache or dizziness no chest pain no shortness of breath no cough no nausea or vomiting no abdominal pain no diarrhea and no urinary symptoms On 06/19/2021 patient is alert and oriented 3 in no apparent distress she is complaining of pain in the sacral area, where patient has an open ulcer, she is complaining of generalized fatigue and weakness, her kidney function has deteriorated since yesterday, sodium is low at 124 otherwise patient denies any complaints there is no fever or chills no headache or dizziness no chest pain no shortness of breath no cough no nausea or vomiting no abdominal pain no diarrhea and no urinary symptoms, Patient is maintained on normal saline, Lasix and Losartan are on hold, kidney ultrasound ordered, awaiting further recommendatio ns from nephrology. Objective - Vital Signs Vital signs: Vital Signs Temp 97.4 F L 06/19/21 03:50 Pulse 72 06/19/21 03:50 Resp 15 06/19/21 03:50 BP 103/61 06/19/21 03:50 Pulse Ox 97 06/19/21 03:50 Intake & Output 06/18/21 06/19/21 06/19/21 18:59 06:59 18:59 Intake Total 540 Output Total 0 0 Balance 540 0 Intake: Oral 540 Output: Urine 0 0 Other: Voiding Method External Catheter Diaper # Voids 0 # Bowel Movements 1 - Exam In general patient is alert and oriented x 3 in no distress HEENT head normocephalic and atraumatic Neck is supple no JVD no goiter no lymphadenopathy no carotid bruit Chest examination is clear to auscultation no crackles no wheezing Cardiac exam reveals regular heart sounds S1 and S2 no gallops no murmurs Abdomen is soft nontender no organomegaly with normal bowel sounds Extremity exam reveals no edema no cyanosis or clubbing Neurological examination reveals no gross focal deficits - Labs CBC & Chem 7: 06/19/21 08:01 06/19/21 08:01 Labs: Abnormal Lab Results - Last 24 Hours (Table) 06/18/21 06/18/21 06/18/21 Range/Units 16:53 16:54 17:10 RBC (3.80-5.40) m/uL Hgb (11.4-16.0) gm/dL Hct (34.0-46.0) % MCHC (31.0-37.0) g/dL RDW (11.5-15.5) % PT (9.0-12.0) sec INR (<1.2) Sodium (137-145) mmol/L Chloride (98-107) mmol/L Carbon Dioxide (22-30) mmol/L BUN (7-17) mg/dL Creatinine (0.52-1.04) mg/dL Glucose (74-99) mg/dL POC Glucose (mg/dL) 41 L 39 L 180 H (75-99) mg/dL Osmolality (280-301) mosm/kg Albumin (3.5-5.0) g/dL 06/18/21 06/19/21 06/19/21 Range/Units 20:40 06:34 08:01 RBC (3.80-5.40) m/uL Hgb (11.4-16.0) gm/dL Hct (34.0-46.0) % MCHC (31.0-37.0) g/dL RDW (11.5-15.5) % PT 31.1 H (9.0-12.0) sec INR 3.1 H (<1.2) Sodium (137-145) mmol/L Chloride (98-107) mmol/L Carbon Dioxide (22-30) mmol/L BUN (7-17) mg/dL Creatinine (0.52-1.04) mg/dL Glucose (74-99) mg/dL POC Glucose (mg/dL) 315 H 164 H (75-99) mg/dL Osmolality (280-301) mosm/kg Albumin (3.5-5.0) g/dL 06/19/21 06/19/21 06/19/21 Range/Units 08:01 08:01 08:01 RBC 3.05 L (3.80-5.40) m/uL Hgb 8.7 L (11.4-16.0) gm/dL Hct 28.8 L (34.0-46.0) % MCHC 30.3 L (31.0-37.0) g/dL RDW 16.9 H (11.5-15.5) % PT (9.0-12.0) sec INR (<1.2) Sodium 124 L (137-145) mmol/L Chloride 94 L (98-107) mmol/L Carbon Dioxide 21 L (22-30) mmol/L BUN 37 H (7-17) mg/dL Creatinine 2.37 H (0.52-1.04) mg/dL Glucose 143 H (74-99) mg/dL POC Glucose (mg/dL) (75-99) mg/dL Osmolality 276 L (280-301) mosm/kg Albumin 2.8 L (3.5-5.0) g/dL 06/19/21 Range/Units 11:45 RBC (3.80-5.40) m/uL Hgb (11.4-16.0) gm/dL Hct (34.0-46.0) % MCHC (31.0-37.0) g/dL RDW (11.5-15.5) % PT (9.0-12.0) sec INR (<1.2) Sodium (137-145) mmol/L Chloride (98-107) mmol/L Carbon Dioxide (22-30) mmol/L BUN (7-17) mg/dL Creatinine (0.52-1.04) mg/dL Glucose (74-99) mg/dL POC Glucose (mg/dL) 223 H (75-99) mg/dL Osmolality (280-301) mosm/kg Albumin (3.5-5.0) g/dL Assessment and Plan Plan: Syncope with collapse Severe hyperglycemia on presentation Elevated troponin level on presentation Underlying history of hypertension Underlying history of hyperlipidemia Underlying history of cardiomyopathy Underlying history of atrial fibrillation Underlying history of cardiac arrhythmia was bradycardia with history of pacemaker placement Underlying history of diabetes mellitus Electrolyte imbalance on presentation with hyponatremia hyperkalemia and hypomagnesemia Previous history of stroke Positive COVID-19 PCR testing on presentation to emergency room Acute kidney injury with hyponatremia At this time patient is admitted to telemetry floor, cardiology consultation requested Echocardiogram ordered Electrolyte correction Will follow closely
[2021-06-19 16:45] LABS: Glucose,Whole Blood 102 mg/dL (75-99)
[2021-06-19] MEDS ORDERED: WARFARIN 0.5 MG TAB PO ONE (18:00)
[2021-06-19] MEDS: MAGNESIUM OXIDE 400 MG TAB PO SCH (21:06)
[2021-06-19] MEDS: ATORVASTATIN 10 MG TAB PO SCH (21:06)
[2021-06-19] MEDS: MONTELUKAST 10 MG TAB PO SCH (21:06)
[2021-06-19 21:19] LABS: Glucose,Whole Blood 98 mg/dL (75-99)
[2021-06-20 00:47] LABS: Potassium 4.9 mmol/L (3.5-5.1)
[2021-06-20] MEDS: INSULIN ASPART (NovoLOG) 100 UNIT/ML VIAL SQ SCH ×4 (06:11→20:30)
[2021-06-20 06:20] LABS: Glucose,Whole Blood 92 mg/dL (75-99)
[2021-06-20] MEDS: glipiZIDE 10 MG TAB PO SCH ×2 (06:22→16:36)
[2021-06-20 06:43] LABS: Anisocytosis Slight; Basophils % (A) 0 %; Eosinophils # (A) 0.1 k/uL (0-0.7); Eosinophils % (A) 1 %; HCT 25.1 % (34.0-46.0); HGB 7.9 gm/dL (11.4-16.0); Hypochromasia Moderate; Lymphocytes # (A) 1.1 k/uL (1.0-4.8); Lymphocytes % (A) 14 %; MCH 29.1 pg (25.0-35.0); MCHC 31.5 g/dL (31.0-37.0); MCV 92.4 fL (80.0-100.0); Mean Platelet Volume 10.2; Monocytes # (A) 0.8 k/uL (0-1.0); Monocytes % (A) 9 %; Neutrophils # (A) 6.2 k/uL (1.3-7.7); Neutrophils % (A) 75 %; Platelet Count 188 k/uL (150-450); RBC 2.72 m/uL (3.80-5.40); RDW 16.8 % (11.5-15.5); WBC 8.3 k/uL (3.8-10.6)
[2021-06-20 06:55] LABS: INR 3.3 (<1.2); Prothrombin Time 33.2 sec (9.0-12.0)
[2021-06-20 07:08] LABS: ALT 11 U/L (4-34); AST 28 U/L (14-36); African American GFR (CKD) 17 (>60 ml/min/1.73 sqM); Albumin 2.8 g/dL (3.5-5.0); Alkaline Phosphatase 63 U/L (38-126); Anion Gap 6 mmol/L; Blood Urea Nitrogen 38 mg/dL (7-17); Calcium 8.9 mg/dL (8.4-10.2); Carbon Dioxide 25 mmol/L (22-30); Chloride 95 mmol/L (98-107); Glucose 84 mg/dL (74-99); Magnesium 1.8 mg/dL (1.6-2.3); Non-African American GFR(CKD) 15 (>60 ml/min/1.73 sqM); Potassium 4.7 mmol/L (3.5-5.1); Sodium 126 mmol/L (137-145); Total Bilirubin 1.2 mg/dL (0.2-1.3); Total Protein 6.2 g/dL (6.3-8.2)
[2021-06-20] MEDS: VITAMIN E (DL,TOCOPHERYL ACET) 400 UNIT (180 MG) CAP PO SCH (09:34)
[2021-06-20] MEDS: HYDROmorphone 1 MG/ML 1 ML SYRINGE IVP PRN (09:34)
[2021-06-20] MEDS: CALCIUM CARBONATE 500 MG CHEWABLE PO SCH (09:34)
[2021-06-20] MEDS: FERROUS SULFATE 325 MG TAB PO SCH ×2 (09:34→20:10)
[2021-06-20] MEDS: SODIUM FERRIC GLUCONAT-SUCROSE 125 MG in SODIUM CHLORIDE 0.9% 100 ML IVPB SCH (09:34)
[2021-06-20] MEDS: carvediloL 12.5 MG TAB PO SCH (09:34)
[2021-06-20] MEDS: CHOLECALCIFEROL 125 MCG (5000 IU) TABLET PO SCH (09:34)
[2021-06-20 11:53] LABS: Glucose,Whole Blood 163 mg/dL (75-99)
--- NOTE | 2021-06-20 13:44 | P.PN ---
Subjective Principal diagnosis: Patient is seen for follow-up for acute kidney injury and hyponatremia. She has tested positive for COVID-19 PCR. Patient was maintained on diuretics prior to admission. These are currently on hold and patient has been started on IV fluids currently receiving saline at 75 mL an hour. Sodium has improved slowly from 124-126 today. Urine osmolality was 290. Systolic blood pressure around 99-10 4 mmHg. No complaints of chest pains or shortness of breath. Patient has not been eating much. Serum creatinine 2.85 mg/dL today. Patient has been voiding in briefs. Bladder appeared distended on ultrasound. Objective - Vital Signs Vital signs: Vital Signs Temp 97.6 F 06/20/21 08:00 Pulse 70 06/20/21 08:00 Resp 19 06/20/21 08:00 BP 129/65 06/20/21 08:00 Pulse Ox 98 06/20/21 08:00 Intake & Output 06/19/21 06/20/21 06/20/21 18:59 06:59 18:59 Intake Total 420 Output Total 100 Balance -100 420 Intake: Oral 420 Output: Urine 100 Straight 100 Other: Voiding Method Diaper Diaper Diaper # Voids 0 - Exam Patient is awake comfortable, alert oriented 3. Examination lower extremities shows no significant edema. Right leg is wrapped. Abdomen is soft nontender obese. Lungs and heart not examined due to Covid isolation - Labs CBC & Chem 7: 06/20/21 05:59 06/20/21 05:59 Labs: Abnormal Lab Results - Last 24 Hours (Table) 06/19/21 06/20/21 06/20/21 Range/Units 16:41 00:14 05:59 RBC (3.80-5.40) m/uL Hgb (11.4-16.0) gm/dL Hct (34.0-46.0) % RDW (11.5-15.5) % PT 33.2 H (9.0-12.0) sec INR 3.3 H (<1.2) Sodium 125 L (137-145) mmol/L Chloride 93 L (98-107) mmol/L BUN 38 H (7-17) mg/dL Creatinine 2.73 H (0.52-1.04) mg/dL POC Glucose (mg/dL) 102 H (75-99) mg/dL Total Protein (6.3-8.2) g/dL Albumin (3.5-5.0) g/dL 06/20/21 06/20/21 06/20/21 Range/Units 05:59 05:59 11:52 RBC 2.72 L (3.80-5.40) m/uL Hgb 7.9 L (11.4-16.0) gm/dL Hct 25.1 L (34.0-46.0) % RDW 16.8 H (11.5-15.5) % PT (9.0-12.0) sec INR (<1.2) Sodium 126 L (137-145) mmol/L Chloride 95 L (98-107) mmol/L BUN 38 H (7-17) mg/dL Creatinine 2.85 H (0.52-1.04) mg/dL POC Glucose (mg/dL) 163 H (75-99) mg/dL Total Protein 6.2 L (6.3-8.2) g/dL Albumin 2.8 L (3.5-5.0) g/dL Assessment and Plan Assessment: 1. Acute kidney injury secondary to low blood pressure angiotensin receptor blockers. No hydronephrosis noted on ultrasound however bladder was Distended. We will recheck bladder scan for urine retention. Blood pressure is also low. I will decrease the dose of Coreg. 2. Type 2 diabetes 3. COVID-19 infection 4. Syncopal episode most likely secondary to hypotension 5.Anemia with iron deficiency, maintained on IV iron 6. Hyponatremia, hypovolemic, currently maintained on normal saline and slowly improving. Urine osmolality was 290 which is not significantly elevated. Plan: 1. Continue with normal saline 2. Decrease dose of Coreg as blood pressure is low [place] 3. Repeat sodium in a.m. 4. Encouraged increase oral intake 5. Repeat bladder scan, rule out urine retention
[2021-06-20 16:34] LABS: Glucose,Whole Blood 93 mg/dL (75-99)
[2021-06-20] MEDS: SODIUM CHLORIDE 0.9% 1,000 ML IV SCH ×2 (16:35→20:10)
[2021-06-20] MEDS ORDERED: WARFARIN 0.5 MG TAB PO ONE (18:00)
[2021-06-20] MEDS: carvediloL 6.25 MG TAB PO SCH (18:05)
--- NOTE | 2021-06-20 18:21 | P.PN ---
Subjective Progress Note Date: 06/20/21 Moriah Tong, is an 80-year-old female who presented to [facility] emergency room with a chief complaint of syncope at home. Patient was recently discharged from a [facility], she went home and ate significant amount of candy, her sugar was up to 600, had an episode of syncope at home. She was evaluated in the emergency room vital examination on presentation revealed a temperature of 97.4 pulse 70 respiration 18 blood pressure 137/57 pulse ox 97% on room air Laboratory data revealed a white blood count of 9.9 hemoglobin 8.7 platelet count 207 sodium 128 potassium 5.2 chloride 90 CO2 32 BUN 25 creatinine 1.2 glucose level was 623 Testing in the emergency room revealed chest x-ray done in the emergency room revealed evidence of cardiomegaly no pneumothorax no pleural effusion, EKG revealed paced rhythm Patient was admitted to medical floor for further evaluation and treatment. On 06/17/2021 patient was seen and examined on the medical floor she is alert and oriented 3 in no apparent distress there is no fever or chills no headache or dizziness no chest pain no shortness of breath no cough no nausea or vomiting no abdominal pain no diarrhea and no urinary symptoms. On 06/18/2021 patient was seen and examined on the medical floor she is alert and oriented 3 in no apparent distress she is complaining of pain in the sacral area, where patient has an open ulcer, she is complaining of generalized fatigue and weakness, her kidney function has deteriorated since yesterday, creatinine is up to 2.08, sodium is low at 127 otherwise patient denies any complaints the re is no fever or chills no headache or dizziness no chest pain no shortness of breath no cough no nausea or vomiting no abdominal pain no diarrhea and no urinary symptoms On 06/19/2021 patient is alert and oriented 3 in no apparent distress she is complaining of pain in the sacral area, where patient has an open ulcer, she is complaining of generalized fatigue and weakness, her kidney function has deteriorated since yesterday, sodium is low at 124 otherwise patient denies any complaints there is no fever or chills no headache or dizziness no chest pain no shortness of breath no cough no nausea or vomiting no abdominal pain no diarrhea and no urinary symptoms, Patient is maintained on normal saline, Lasix and Losartan are on hold, kidney ultrasound ordered, awaiting further recommendatio ns from nephrology. On 06/20/2021 patient was seen and examined on the medical floor she is alert a nd oriented 3 in no apparent distress there is no fever or chills no headache or dizziness no chest pain no shortness of breath no cough no nausea or vomiting no abdominal pain no diarrhea no blood in stools no burning with urination no frequency or urgency no hematuria Objective - Vital Signs Vital signs: Vital Signs Temp 97.6 F 06/20/21 08:00 Pulse 70 06/20/21 08:00 Resp 19 06/20/21 08:00 BP 129/65 06/20/21 08:00 Pulse Ox 98 06/20/21 08:00 Intake & Output 06/19/21 06/20/21 06/20/21 18:59 06:59 18:59 Intake Total 420 Output Total 100 Balance -100 420 Intake: Oral 420 Output: Urine 100 Straight 100 Other: Voiding Method Diaper Diaper Diaper # Voids 0 - Exam In general patient is alert and oriented x 3 in no distress HEENT head normocephalic and atraumatic Neck is supple no JVD no goiter no lymphadenopathy no carotid bruit Chest examination is clear to auscultation no crackles no wheezing Cardiac exam reveals regular heart sounds S1 and S2 no gallops no murmurs Abdomen is soft nontender no organomegaly with normal bowel sounds Extremity exam reveals no edema no cyanosis or clubbing Neurological examination reveals no gross focal deficits - Labs CBC & Chem 7: 06/20/21 05:59 06/20/21 05:59 Labs: Abnormal Lab Results - Last 24 Hours (Table) 06/19/21 06/20/21 06/20/21 Range/Units 16:41 00:14 05:59 RBC (3.80-5.40) m/uL Hgb (11.4-16.0) gm/dL Hct (34.0-46.0) % RDW (11.5-15.5) % PT 33.2 H (9.0-12.0) sec INR 3.3 H (<1.2) Sodium 125 L (137-145) mmol/L Chloride 93 L (98-107) mmol/L BUN 38 H (7-17) mg/dL Creatinine 2.73 H (0.52-1.04) mg/dL POC Glucose (mg/dL) 102 H (75-99) mg/dL Total Protein (6.3-8.2) g/dL Albumin (3.5-5.0) g/dL 06/20/21 06/20/21 06/20/21 Range/Units 05:59 05:59 11:52 RBC 2.72 L (3.80-5.40) m/uL Hgb 7.9 L (11.4-16.0) gm/dL Hct 25.1 L (34.0-46.0) % RDW 16.8 H (11.5-15.5) % PT (9.0-12.0) sec INR (<1.2) Sodium 126 L (137-145) mmol/L Chloride 95 L (98-107) mmol/L BUN 38 H (7-17) mg/dL Creatinine 2.85 H (0.52-1.04) mg/dL POC Glucose (mg/dL) 163 H (75-99) mg/dL Total Protein 6.2 L (6.3-8.2) g/dL Albumin 2.8 L (3.5-5.0) g/dL Assessment and Plan Plan: Syncope with collapse Severe hyperglycemia on presentation Elevated troponin level on presentation Underlying history of hypertension Underlying history of hyperlipidemia Underlying history of cardiomyopathy Underlying history of atrial fibrillation Underlying history of cardiac arrhythmia was bradycardia with history of pacemaker placement Underlying history of diabetes mellitus Electrolyte imbalance on presentation with hyponatremia hyperkalemia and hypomagnesemia Previous history of stroke Positive COVID-19 PCR testing on presentation to emergency room Acute kidney injury with hyponatremia At this time patient is admitted to telemetry floor, cardiology consultation requested Echocardiogram ordered Electrolyte correction Will follow closely
[2021-06-20] MEDS: MONTELUKAST 10 MG TAB PO SCH (20:10)
[2021-06-20] MEDS: MAGNESIUM OXIDE 400 MG TAB PO SCH (20:10)
[2021-06-20] MEDS: ATORVASTATIN 10 MG TAB PO SCH (20:10)
[2021-06-20 20:28] LABS: Glucose,Whole Blood 95 mg/dL (75-99)
[2021-06-21 06:48] LABS: INR 2.9 (<1.2)
[2021-06-21 07:30] LABS: Glucose,Whole Blood 86 mg/dL (75-99)
[2021-06-21] MEDS: INSULIN ASPART (NovoLOG) 100 UNIT/ML VIAL SQ SCH ×4 (08:10→21:23)
[2021-06-21] MEDS: FERROUS SULFATE 325 MG TAB PO SCH ×2 (08:24→20:39)
[2021-06-21] MEDS: carvediloL 6.25 MG TAB PO SCH ×2 (08:24→17:17)
[2021-06-21] MEDS: VITAMIN E (DL,TOCOPHERYL ACET) 400 UNIT (180 MG) CAP PO SCH (08:24)
[2021-06-21] MEDS: CHOLECALCIFEROL 125 MCG (5000 IU) TABLET PO SCH (08:24)
[2021-06-21] MEDS: glipiZIDE 10 MG TAB PO SCH ×2 (08:24→17:17)
[2021-06-21] MEDS: CALCIUM CARBONATE 500 MG CHEWABLE PO SCH (08:24)
[2021-06-21] MEDS: SODIUM FERRIC GLUCONAT-SUCROSE 125 MG in SODIUM CHLORIDE 0.9% 100 ML IVPB SCH (09:39)
[2021-06-21 10:19] LABS: African American GFR (CKD) 20.2 (60.0-200.0); Albumin 2.7 g/dL (3.8-4.9); Anion Gap 13.5 mmol/L (10.00-18.00); BUN/Creat Ratio 13.56 Ratio (12.00-20.00); Blood Urea Nitrogen 33.9 mg/dL (9.0-27.0); Calcium 8.7 mg/dL (8.7-10.3); Carbon Dioxide 19.5 mmol/L (20.0-27.5); Globulin 2.7 g/dL (1.6-3.3); Non-African American GFR(CKD) 17.4 (60.0-200.0); Potassium 5.1 mmol/L (3.5-5.5); Total Bilirubin 0.7 mg/dL (0.30-1.20); Total Protein 5.4 g/dL (6.2-8.2)
[2021-06-21 10:40] LABS: Basophils # (A) 0.01 X 10*3/uL (0.00-0.10); Basophils % (A) 0.1 %; Eosinophils % (A) 1.1 %; HCT 23.7 % (37.2-46.3); HGB 7.1 g/dL (12.0-15.0); Immature Grans, Automated 0.6 %; Lymphocytes # (A) 1.08 X 10*3/uL (0.90-5.00); Lymphocytes % (A) 12.2 %; MCH 28.2 pg (27.0-32.0); Mean Platelet Volume 12.9 fL (9.5-12.2); Monocytes # (A) 1.04 X 10*3/uL (0.20-1.00); Monocytes % (A) 11.8 %; NRBC Per 100 WBC 0.2 /100 WBCS (0.0-0.0); Neutrophils # (A) 6.54 X 10*3/uL (1.80-7.70); Neutrophils % (A) 74.2 %; Platelet Count 157 X 10*3/uL (140-440); RBC 2.52 X 10*6/uL (4.10-5.20); RDW 17.2 % (11.5-14.5); WBC 8.82 X 10*3/uL (4.50-10.00)
[2021-06-21 11:46] LABS: Glucose,Whole Blood 69 mg/dL (75-99)
--- NOTE | 2021-06-21 15:36 | P.PN ---
Subjective Principal diagnosis: Patient is seen for follow-up for acute kidney injury and hyponatremia. She has tested positive for COVID-19 PCR. Patient was maintained on diuretics prior to admission. These are currently on hold and patient has been started on IV fluids currently receiving saline at 75 mL an hour. Sodium has improved slowly from 124-126 Urine osmolality was 290. Systolic blood pressure around 99-10 4 mmHg. No complaints of chest pains or shortness of breath. Patient has not been eating much. Serum creatinine 2.5 day and sodium is up to 130. Patient has been voiding in briefs. Bladder appeared distended on ultrasound. Bladder scan had shown about 200 mL of urine yesterday. Objective - Vital Signs Vital signs: Vital Signs Temp 98.7 F 06/21/21 10:00 Pulse 70 06/21/21 10:00 Resp 18 06/21/21 10:00 BP 94/41 06/21/21 10:00 Pulse Ox 99 06/21/21 10:00 Intake & Output 06/20/21 06/21/21 06/21/21 18:59 06:59 18:59 Intake Total 420 1125 Balance 420 1125 Weight 72.575 kg Intake: IV 1125 Sodium Chloride 0.9% 1, 1125 000 ml @ 75 mls/hr IV . [id number] [facility] Rx#:[id number] Oral 420 Other: Voiding Method Diaper Diaper Diaper # Voids 0 1 - Exam Patient is awake comfortable, alert oriented 3. Examination lower extremities shows no significant edema. Right leg is wrapped. Abdomen is soft nontender obese. Lungs and heart not examined due to Covid isolation - Labs CBC & Chem 7: 06/21/21 05:36 06/21/21 05:36 Labs: Abnormal Lab Results - Last 24 Hours (Table) 06/21/21 06/21/21 06/21/21 Range/Units 05:36 05:36 05:36 RBC 2.52 L (4.10-5.20) X 10*6/uL Hgb 7.1 L (12.0-15.0) g/dL Hct 23.7 L (37.2-46.3) % MCHC 30.0 L (32.0-37.0) g/dL RDW 17.2 H (11.5-14.5) % MPV 12.9 H (9.5-12.2) fL Absolute Nucleated RBC 0.02 H (0.00-0.00) X 10*3/uL Immature Gran # 0.05 H (0.00-0.04) X 10*3/uL Monocytes # 1.04 H (0.20-1.00) X 10*3/uL NRBC/100 WBC Diff 0.2 H (0.0-0.0) /100 WBCS PT 29.0 H (9.0-12.0) sec INR 2.9 H (<1.2) Sodium 130 L (135-145) mmol/L Carbon Dioxide 19.5 L (20.0-27.5) mmol/L BUN 33.9 H (9.0-27.0) mg/dL Creatinine 2.5 H (0.6-1.5) mg/dL Est GFR (CKD-EPI)AfAm 20.2 L (60.0-200.0) Est GFR (CKD-EPI)NonAf 17.4 L (60.0-200.0) Glucose 65 L (70-110) mg/dL POC Glucose (mg/dL) (75-99) mg/dL Total Protein 5.4 L (6.2-8.2) g/dL Albumin 2.7 L (3.8-4.9) g/dL Albumin/Globulin Ratio 1.00 L (1.60-3.17) g/dL 06/21/21 Range/Units 11:45 RBC (4.10-5.20) X 10*6/uL Hgb (12.0-15.0) g/dL Hct (37.2-46.3) % MCHC (32.0-37.0) g/dL RDW (11.5-14.5) % MPV (9.5-12.2) fL Absolute Nucleated RBC (0.00-0.00) X 10*3/uL Immature Gran # (0.00-0.04) X 10*3/uL Monocytes # (0.20-1.00) X 10*3/uL NRBC/100 WBC Diff (0.0-0.0) /100 WBCS PT (9.0-12.0) sec INR (<1.2) Sodium (135-145) mmol/L Carbon Dioxide (20.0-27.5) mmol/L BUN (9.0-27.0) mg/dL Creatinine (0.6-1.5) mg/dL Est GFR (CKD-EPI)AfAm (60.0-200.0) Est GFR (CKD-EPI)NonAf (60.0-200.0) Glucose (70-110) mg/dL POC Glucose (mg/dL) 69 L (75-99) mg/dL Total Protein (6.2-8.2) g/dL Albumin (3.8-4.9) g/dL Albumin/Globulin Ratio (1.60-3.17) g/dL Assessment and Plan Assessment: 1. Acute kidney injury secondary to low blood pressure angiotensin receptor blockers. Improving. No hydronephrosis noted on ultrasound however bladder was Distended. Bladder scan did not show significant the retention. Dose of Coreg was also decreased. 2. Type 2 diabetes 3. COVID-19 infection 4. Syncopal episode most likely secondary to hypotension 5.Anemia with iron deficiency, maintained on IV iron 6. Hyponatremia, hypovolemic, currently maintained on normal saline and slowly improving. Urine osmolality was 290 which is not significantly elevated. Plan: Continue to encourage increased oral intake. Okay to discharge patient with close monitoring of labs as outpatient. Can DC sodium chloride infusion and add sodium chloride tablets if needed as outpatient as blood pressure remains on the lower side.
[2021-06-21 16:44] LABS: Glucose,Whole Blood 103 mg/dL (75-99)
[2021-06-21] MEDS: SODIUM CHLORIDE 0.9% 1,000 ML IV SCH (17:17)
[2021-06-21] MEDS ORDERED: WARFARIN 2.5 MG TAB PO ONE (18:00)
--- NOTE | 2021-06-21 19:43 | P.PN ---
Subjective Progress Note Date: 06/21/21 Moriah Tong, is an 80-year-old female who presented to [facility] emergency room with a chief complaint of syncope at home. Patient was recently discharged from a [facility], she went home and ate significant amount of candy, her sugar was up to 600, had an episode of syncope at home. She was evaluated in the emergency room vital examination on presentation revealed a temperature of 97.4 pulse 70 respiration 18 blood pressure 137/57 pulse ox 97% on room air Laboratory data revealed a white blood count of 9.9 hemoglobin 8.7 platelet count 207 sodium 128 potassium 5.2 chloride 90 CO2 32 BUN 25 creatinine 1.2 glucose level was 623 Testing in the emergency room revealed chest x-ray done in the emergency room revealed evidence of cardiomegaly no pneumothorax no pleural effusion, EKG revealed paced rhythm Patient was admitted to medical floor for further evaluation and treatment. On 06/17/2021 patient was seen and examined on the medical floor she is alert and oriented 3 in no apparent distress there is no fever or chills no headache or dizziness no chest pain no shortness of breath no cough no nausea or vomiting no abdominal pain no diarrhea and no urinary symptoms. On 06/18/2021 patient was seen and examined on the medical floor she is alert and oriented 3 in no apparent distress she is complaining of pain in the sacral area, where patient has an open ulcer, she is complaining of generalized fatigue and weakness, her kidney function has deteriorated since yesterday, creatinine is up to 2.08, sodium is low at 127 otherwise patient denies any complaints the re is no fever or chills no headache or dizziness no chest pain no shortness of breath no cough no nausea or vomiting no abdominal pain no diarrhea and no urinary symptoms On 06/19/2021 patient is alert and oriented 3 in no apparent distress she is complaining of pain in the sacral area, where patient has an open ulcer, she is complaining of generalized fatigue and weakness, her kidney function has deteriorated since yesterday, sodium is low at 124 otherwise patient denies any complaints there is no fever or chills no headache or dizziness no chest pain no shortness of breath no cough no nausea or vomiting no abdominal pain no diarrhea and no urinary symptoms, Patient is maintained on normal saline, Lasix and Losartan are on hold, kidney ultrasound ordered, awaiting further recommendatio ns from nephrology. On 06/20/2021 patient was seen and examined on the medical floor she is alert a nd oriented 3 in no apparent distress there is no fever or chills no headache or dizziness no chest pain no shortness of breath no cough no nausea or vomiting no abdominal pain no diarrhea no blood in stools no burning with urination no frequency or urgency no hematuria On 06/21/2021 patient was seen and examined on the medical floor she is alert and oriented in no apparent distress, her nurse is reporting evidence of vaginal yeast infection, otherwise patient denies any complaints there is no fever or chills no headache or dizziness no chest pain no shortness of breath no cough no nausea or vomiting no abdominal pain no diarrhea and no urinary symptoms Objective - Vital Signs Vital signs: Vital Signs Temp 98.4 F 06/21/21 06:00 Pulse 72 06/21/21 06:00 Resp 19 06/21/21 06:00 BP 105/48 06/21/21 06:00 Pulse Ox 98 06/21/21 06:00 Intake & Output 06/20/21 06/21/21 06/21/21 18:59 06:59 18:59 Intake Total 420 1125 Balance 420 1125 Intake: IV 1125 Sodium Chloride 0.9% 1, 1125 000 ml @ 75 mls/hr IV . [id number] [facility] Rx#:[id number] Oral 420 Other: Voiding Method Diaper Diaper # Voids 0 1 - Exam In general patient is alert and oriented x 3 in no distress HEENT head normocephalic and atraumatic Neck is supple no JVD no goiter no lymphadenopathy no carotid bruit Chest examination is clear to auscultation no crackles no wheezing Cardiac exam reveals regular heart sounds S1 and S2 no gallops no murmurs Abdomen is soft nontender no organomegaly with normal bowel sounds Extremity exam reveals no edema no cyanosis or clubbing Neurological examination reveals no gross focal deficits - Labs CBC & Chem 7: 06/21/21 05:36 06/21/21 05:36 Labs: Abnormal Lab Results - Last 24 Hours (Table) 06/20/21 06/21/21 Range/Units 11:52 05:36 PT 29.0 H (9.0-12.0) sec INR 2.9 H (<1.2) POC Glucose (mg/dL) 163 H (75-99) mg/dL Assessment and Plan Plan: Syncope with collapse Severe hyperglycemia on presentation Elevated troponin level on presentation Underlying history of hypertension Underlying history of hyperlipidemia Underlying history of cardiomyopathy Underlying history of atrial fibrillation Underlying history of cardiac arrhythmia was bradycardia with history of pacemaker placement Underlying history of diabetes mellitus Electrolyte imbalance on presentation with hyponatremia hyperkalemia and hypomagnesemia Previous history of stroke Positive COVID-19 PCR testing on presentation to emergency room Acute kidney injury with hyponatremia At this time patient is admitted to telemetry floor, cardiology consultation requested Echocardiogram ordered Electrolyte correction Will follow closely
[2021-06-21] MEDS ORDERED: FLUCONAZOLE 150 MG TAB PO SCH (19:45)
[2021-06-21] MEDS: MONTELUKAST 10 MG TAB PO SCH (20:39)
[2021-06-21] MEDS: ATORVASTATIN 10 MG TAB PO SCH (20:39)
[2021-06-21] MEDS: ACETAMINOPHEN TAB 500 MG TAB PO PRN (20:39)
[2021-06-21] MEDS: MAGNESIUM OXIDE 400 MG TAB PO SCH (20:39)
[2021-06-21 21:26] LABS: Glucose,Whole Blood 125 mg/dL (75-99)
[2021-06-22] MEDS: SODIUM CHLORIDE 0.9% 1,000 ML IV SCH ×2 (05:06→17:04)
[2021-06-22 05:50] LABS: INR 2.3 (<1.2); Prothrombin Time 22.7 sec (9.0-12.0)
[2021-06-22 07:05] LABS: Glucose,Whole Blood 101 mg/dL (75-99)
[2021-06-22] MEDS: INSULIN ASPART (NovoLOG) 100 UNIT/ML VIAL SQ SCH ×3 (08:14→17:07)
[2021-06-22] MEDS: FERROUS SULFATE 325 MG TAB PO SCH (08:24)
[2021-06-22] MEDS: CHOLECALCIFEROL 125 MCG (5000 IU) TABLET PO SCH (08:24)
[2021-06-22] MEDS: carvediloL 6.25 MG TAB PO SCH ×2 (08:24→17:06)
[2021-06-22] MEDS: VITAMIN E (DL,TOCOPHERYL ACET) 400 UNIT (180 MG) CAP PO SCH (08:24)
[2021-06-22] MEDS: glipiZIDE 10 MG TAB PO SCH ×2 (08:24→17:06)
[2021-06-22] MEDS: CALCIUM CARBONATE 500 MG CHEWABLE PO SCH (08:25)
[2021-06-22 09:36] VITALS: TEMP 98.1
[2021-06-22] MEDS: SODIUM FERRIC GLUCONAT-SUCROSE 125 MG in SODIUM CHLORIDE 0.9% 100 ML IVPB SCH (10:01)
[2021-06-22 11:08] LABS: Glucose,Whole Blood 114 mg/dL (75-99)
[2021-06-22 11:30] LABS: African American GFR (CKD) 29 (>60 ml/min/1.73 sqM); Anion Gap 8 mmol/L; Blood Urea Nitrogen 36 mg/dL (7-17); Calcium 8.8 mg/dL (8.4-10.2); Carbon Dioxide 20 mmol/L (22-30); Chloride 102 mmol/L (98-107); Glucose 106 mg/dL (74-99); Non-African American GFR(CKD) 25 (>60 ml/min/1.73 sqM); Potassium 4.9 mmol/L (3.5-5.1); Sodium 130 mmol/L (137-145)
--- NOTE | 2021-06-22 12:39 | P.PN ---
Subjective Principal diagnosis: Patient is seen for follow-up for acute kidney injury and hyponatremia. She has tested positive for COVID-19 PCR. Patient was maintained on diuretics prior to admission. These are currently on hold and patient has been started on IV fluids currently receiving saline at 75 mL an hour. Sodium has improved slowly from 124-126 Urine osmolality was 290. Systolic blood pressure around 99-10 4 mmHg. No complaints of chest pains or shortness of breath. Patient has not been eating much. Serum creatinine 1.8 day and sodium remains at 130. Status post saline Objective - Vital Signs Vital signs: Vital Signs Temp 98.1 F 06/22/21 09:36 Pulse 109 H 06/22/21 09:36 Resp 17 06/22/21 09:36 BP 110/65 06/22/21 09:36 Pulse Ox 96 06/22/21 09:36 Intake & Output 06/21/21 06/22/21 06/22/21 18:59 06:59 18:59 Intake Total 580 120 Balance 580 120 Weight 72.575 kg 74.5 kg Intake: Oral 580 120 Other: Voiding Method Diaper Diaper Diaper # Voids 2 1 - Exam Patient is awake comfortable, alert oriented 3. Examination lower extremities shows no significant edema. Right leg is wrapped. Abdomen is soft nontender obese. Lungs and heart not examined due to Covid isolation - Labs CBC & Chem 7: 06/21/21 05:36 06/22/21 10:34 Labs: Abnormal Lab Results - Last 24 Hours (Table) 06/21/21 06/21/21 06/22/21 Range/Units 16:43 21:22 05:01 PT 22.7 H (9.0-12.0) sec INR 2.3 H (<1.2) Sodium (137-145) mmol/L Carbon Dioxide (22-30) mmol/L BUN (7-17) mg/dL Creatinine (0.52-1.04) mg/dL Glucose (74-99) mg/dL POC Glucose (mg/dL) 103 H 125 H (75-99) mg/dL 06/22/21 06/22/21 06/22/21 Range/Units 07:04 10:34 11:07 PT (9.0-12.0) sec INR (<1.2) Sodium 130 L (137-145) mmol/L Carbon Dioxide 20 L (22-30) mmol/L BUN 36 H (7-17) mg/dL Creatinine 1.88 H (0.52-1.04) mg/dL Glucose 106 H (74-99) mg/dL POC Glucose (mg/dL) 101 H 114 H (75-99) mg/dL Assessment and Plan Assessment: 1. Acute kidney injury secondary to low blood pressure angiotensin receptor blockers. Improving. No hydronephrosis noted on ultrasound however bladder was Distended. Bladder scan did not show significant the retention. Dose of Coreg was also decreased. 2. Type 2 diabetes 3. COVID-19 infection 4. Syncopal episode most likely secondary to hypotension 5.Anemia with iron deficiency, maintained on IV iron 6. Hyponatremia, hypovolemic, currently maintained on normal saline and slowly improving. Urine osmolality was 290 which is not significantly elevated. Plan: Continue to encourage increased oral intake. Okay to discharge patient with close monitoring of labs as outpatient. Can DC sodium chloride infusion on discharge and add sodium chloride tablets if needed as outpatient as blood pressure remains on the lower side.
[2021-06-22 14:31] VITALS: BP 112/67; PULSE 72; RESP 18
--- NOTE | 2021-06-22 16:00 | P.DS ---
Providers Date of admission: 06/15/21 16:29 Expected date of discharge: 06/22/21 Attending physician: Tori Barney Consults: 06/15/21 16:21 Consult Physician Urgent Consulting Provider: [facility] Consult Reason/Comments: Elevated troponin, syncope Do you want consulting provider notified?: Yes 06/18/21 12:50 Consult Physician Routine Consulting Provider: Yanique Georges Consult Reason/Comments: acute kidney injury, hyponatremia Do you want consulting provider notified?: Yes 06/18/21 13:04 Consult Physician Routine Consulting Provider: Annelise Robb Consult Reason/Comments: sacral ulcer Do you want consulting provider notified?: Yes Primary care physician: Miranda Thompson [facility] Course: Diagnosis on discharge: Syncope with collapse Severe hyperglycemia on presentation Elevated troponin level on presentation Underlying history of hypertension Underlying history of hyperlipidemia Underlying history of cardiomyopathy Underlying history of atrial fibrillation Underlying history of cardiac arrhythmia was bradycardia with history of pacemaker placement Underlying history of diabetes mellitus Electrolyte imbalance on presentation with hyponatremia hyperkalemia and hypomagnesemia Previous history of stroke Positive COVID-19 PCR testing on presentation to emergency room Acute kidney injury with hyponatremia Hospital course: Moriah Tong, is an 80-year-old female who presented to [facility] emergency room with a chief complaint of syncope at home. Patient [facility], she went home and ate significant amount of candy, her sugar was up to 600, had an episode of syncope at home. She was evaluated in the emergency room vital examination on presentation revealed a temperature of 97.4 pulse 70 respiration 18 blood pressure 137/57 pulse ox 97% on room air Laboratory data revealed a white blood count of 9.9 hemoglobin 8.7 platelet count 207 sodium 128 potassium 5.2 chloride 90 CO2 32 BUN 25 creatinine 1.2 glucose level was 623 Testing in the emergency room revealed chest x-ray done in the emergency room revealed evidence of cardiomegaly no pneumothorax no pleural effusion, EKG revealed paced rhythm Patient was admitted to medical floor for further evaluation and treatment. On 06/17/2021 patient was seen and examined on the medical floor she is alert and oriented 3 in no apparent distress there is no fever or chills no headache or dizziness no chest pain no shortness of breath no cough no nausea or vomiting no abdominal pain no diarrhea and no urinary symptoms. On 06/18/2021 patient was seen and examined on the medical floor she is alert and oriented 3 in no apparent distress she is complaining of pain in the sacral area, where patient has an open ulcer, she is complaining of generalized fatigue and weakness, her kidney function has deteriorated since yesterday, creatinine is up to 2.08, sodium is low at 127 otherwise patient denies any complaints there is no fever or chills no headache or dizziness no chest pain no shortness of breath no cough no nausea or vomiting no abdominal pain no diarrhea and no urinary symptoms On 06/19/2021 patient is alert and oriented 3 in no apparent distress she is complaining of pain in the sacral area, where patient has an open ulcer, she is complaining of generalized fatigue and weakness, her kidney function has deteriorated since yesterday, sodium is low at 124 otherwise patient denies any complaints there is no fever or chills no headache or dizziness no chest pain no shortness of breath no cough no nausea or vomiting no abdominal pain no diarrhea and no urinary symptoms, Patient is maintained on normal saline, Lasix and Losartan are on hold, kidney ultrasound ordered, awaiting further recommendations from nephrology. On 06/20/2021 patient was seen and examined on the medical floor she is alert and oriented 3 in no apparent distress there is no fever or chills no headache or dizziness no chest pain no shortness of breath no cough no nausea or vomiting no abdominal pain no diarrhea no blood in stools no burning with urination no frequency or urgency no hematuria On 06/21/2021 patient was seen and examined on the medical floor she is alert and oriented in no apparent distress, her nurse is reporting evidence of vaginal yeast infection, otherwise patient denies any complaints there is no fever or chills no headache or dizziness no chest pain no shortness of breath no cough no nausea or vomiting no abdominal pain no diarrhea and no urinary symptoms On 06/22/2021 patient was seen and examined on the medical floor she is alert and oriented 3 in no apparent distress she is receiving IV iron infusion at this time telephonic nurse case manager contacted the son in regard to discharge and he wishes to have his mother transferred to [facility] for rehabilitation. At this time will proceed with discharging patients. Losartan and Lasix were discontinued per nephrology recommendation, will follow CBC and CMP closely at the [facility] Plan - Discharge Summary Discharge Rx Participant: No New Discharge Prescriptions: New carvediloL [Coreg] 6.25 mg PO AC-BID tab Warfarin [Coumadin] 3 mg PO ONCE@1800 tab Fluconazole [Diflucan] 150 mg PO DAILY@1900 tab Continue Atorvastatin [Lipitor] 10 mg PO HS tab Montelukast [Singulair] 10 mg PO HS #30 tab Cyanocobalamin [Vitamin B-12] 500 - 1,000 mcg PO DAILY Cholecalciferol [Vitamin D3 (125 Mcg = 5000 Iu)] 125 mcg PO DAILY Acetaminophen Tab [Tylenol] 500 mg PO Q6H PRN PRN Reason: Pain Or Fever > 100.5 Vitamin E (Dl,Tocopheryl Acet) [Vitamin E (400 Iu = 180 mg)] 400 unit PO DAILY metFORMIN HCL 500 mg PO TID glipiZIDE [Glucotrol] 10 mg PO AC-BID Cranberry 4200 Mg 4,200 mg PO DAILY Magnesium 250 mg PO HS Ferrous Sulfate [Iron (65 MG Elemental)] 325 mg PO BID Calcium Carbonate [Calcium] 600 mg PO DAILY Discontinued Carvedilol [Coreg] 25 mg PO BID Furosemide [Lasix] 40 mg PO DAILY Warfarin [Coumadin] 5 mg PO HS Losartan Potassium [Cozaar] 50 mg PO DAILY Discharge Medication List Atorvastatin [Lipitor] 10 mg PO HS tab 05/11/17 [Rx] Montelukast [Singulair] 10 mg PO HS #30 tab 02/03/19 [Rx] Acetaminophen Tab [Tylenol] 500 mg PO Q6H PRN 06/15/21 [History] Calcium Carbonate [Calcium] 600 mg PO DAILY 06/15/21 [History] Cholecalciferol [Vitamin D3 (125 Mcg = 5000 Iu)] 125 mcg PO DAILY 06/15/21 [History] Cranberry 4200 Mg 4,200 mg PO DAILY 06/15/21 [History] Cyanocobalamin [Vitamin B-12] 500 - 1,000 mcg PO DAILY 06/15/21 [History] Ferrous Sulfate [Iron (65 MG Elemental)] 325 mg PO BID 06/15/21 [History] Magnesium 250 mg PO HS 06/15/21 [History] Vitamin E (Dl,Tocopheryl Acet) [Vitamin E (400 Iu = 180 mg)] 400 unit PO DAILY 06/15/21 [History] glipiZIDE [Glucotrol] 10 mg PO AC-BID 06/15/21 [History] metFORMIN HCL 500 mg PO TID 06/15/21 [History] Fluconazole [Diflucan] 150 mg PO DAILY@1900 tab 06/22/21 [Rx] Warfarin [Coumadin] 3 mg PO ONCE@1800 tab 06/22/21 [Rx] carvediloL [Coreg] 6.25 mg PO AC-BID tab 06/22/21 [Rx] Follow up Appointment(s)/Referral(s): Miranda Thompson MD [Primary Care Provider] - 1-2 days [facility] [NON-STAFF] - As Needed (hospital bed) [facility], [NON-STAFF] - [facility], [NON-STAFF] - As Needed Activity/Diet/Wound Care/Special Instructions: Son is requesting Wheelchair van at d/c and he is agreeable to cost. Please call [facility] to schedule w/c van: #[phone].
[2021-06-22 16:12] LABS: Glucose,Whole Blood 165 mg/dL (75-99)
[2021-06-22] MEDS ORDERED: WARFARIN 3 MG TAB PO ONE (18:00)
== END 2021-06-22 17:40 | DRG 643 ==
LOC: EC 11:55 → 3SCARD 16:29 → 4SSUR 06-20 17:08
PROVIDERS: ADMIT Internal Medicine; ATTEND Internal Medicine
DX: E22.2 Syndrome of inappropriate secretion of antidiuretic hormone (principal); N17.0 Acute kidney failure with tubular necrosis; U07.1 COVID-19; D84.9 Immunodeficiency, unspecified; I42.9 Cardiomyopathy, unspecified; I48.21 Permanent atrial fibrillation; I50.32 Chronic diastolic (congestive) heart failure; E11.65 Type 2 diabetes mellitus with hyperglycemia; D50.9 Iron deficiency anemia, unspecified; E78.5 Hyperlipidemia, unspecified; E83.42 Hypomagnesemia; E86.1 Hypovolemia; E87.5 Hyperkalemia; I11.0 Hypertensive heart disease with heart failure; J45.909 Unspecified asthma, uncomplicated; I27.20 Pulmonary hypertension, unspecified; L89.152 Pressure ulcer of sacral region, stage 2; L89.312 Pressure ulcer of right buttock, stage 2; L89.612 Pressure ulcer of right heel, stage 2; T44.5X5A Adverse effect of predominantly beta-adrenoreceptor agonists, initial encounter; I95.9 Hypotension, unspecified; R55 Syncope and collapse; R77.8 Other specified abnormalities of plasma proteins; Z79.01 Long term (current) use of anticoagulants; Z79.84 Long term (current) use of oral hypoglycemic drugs; Z79.899 Other long term (current) drug therapy; Z82.49 Family history of ischemic heart disease and other diseases of the circulatory system; Z86.73 Personal history of transient ischemic attack (TIA), and cerebral infarction without residual deficits; Z87.442 Personal history of urinary calculi; Z87.891 Personal history of nicotine dependence; Z95.0 Presence of cardiac pacemaker; Z96.653 Presence of artificial knee joint, bilateral; Z90.49 Acquired absence of other specified parts of digestive tract; Z90.89 Acquired absence of other organs; Z98.890 Other specified postprocedural states; Z87.440 Personal history of urinary (tract) infections; Z80.9 Family history of malignant neoplasm, unspecified; Z88.6 Allergy status to analgesic agent; Z91.012 Allergy to eggs; Z88.0 Allergy status to penicillin; Z88.7 Allergy status to serum and vaccine; Z91.018 Allergy to other foods; Z87.01 Personal history of pneumonia (recurrent)
CPT/HCPCS: 36415; 71046; 76770; 80048; 80053; 81001; 82009; 82533; 82607; 82746; 83540; 83550; 83605; 83735; 83930; 83935; 84300; 84443; 84484; 85025; 85610; 87635; 93005; 93306; 94760; 96365; 96372; 96375; 99285

== ENCOUNTER 2021-07-30 15:58 | Inpatient (IN) | payer MEDICARE ==
--- NOTE | 2021-07-30 16:33 | ED ---
General Adult HPI - General Chief complaint: Altered Mental Status Stated complaint: AMS Time Seen by Provider: 07/30/21 16:01 Source: EMS Mode of arrival: EMS Limitations: altered mental status - History of Present Illness Initial comments: Dictation was produced using [employer] dictation software. please excuse any grammatical, word or spelling errors. Chief Complaint: 81-year-old female presents emergency department for pain, ataxia and altered mental status History of Present Illness: Patient is an 81-year-old female she is debilitated. History of present illness obtained from patient's son was at the bedside. She read via EMS. Patient was last normal yesterday. At approximately 4:30 to 5 AM she began complaining of pain. Son was at the bedside is patient's primary classifying machine operator. States he gave her some pain medicines. Patient allegedly has history of chronic right lower extremity pain. She has history of contraction to the leg. Son noticed this morning that she was having issues trying to grab things and was less responsive and more lethargic earlier today.. Vision does take anticoagulation medications. He takes Coumadin. She has been at home since one month ago after being at [facility] for several weeks. Son also reports the patient has extensive history of urinary tract infections. Son at the bedside reports that patient does appear to be baseline at this time. Son was concerned that she had a fever. According to nurse who received report from EMS she had a temperature of 102. The ROS documented in this emergency department record has been reviewed and confirmed by me. Those systems with pertinent positive or negative responses have been documented in the HPI. All other systems are other negative and/or noncontributory. PHYSICAL EXAM: General Impression: Alert and oriented x2/4, yelling in pain HEENT: Normocephalic atraumatic, extra-ocular movements intact, pupils equal and reactive to light bilaterally, mucous membranes moist. Cardiovascular: Heart regular rate and rhythm Chest: Able to complete full sentences, no retractions, no tachypnea Abdomen: abdomen soft, non-tender, non-distended, no organomegaly Musculoskeletal: Contracted right lower extremity Motor: no focal deficits noted Neurological: CN II-XII grossly intact, no focal motor or sensory deficits noted Skin: Intact with no visualized rashes Psych: Uncooperative ED course:81-year-old female with multiple comorbidities presents to the emergency Department from home for altered mental status, acute on chronic right lower extremity pain vital signs upon arrival are within acceptable limits. Patient is frail and debilitated. Laboratory evaluation obtained. Mild leukocytosis 14.3. Hemoglobin stable. Metabolic panel shows potassium 5.4 with no hemolysis. We will monitor this. Patient's renal markers slightly elevated. Magnesium low at point 0.5. Patient given parenteral magnesium. Troponin elevated 0.055. Patient has history of elevated troponin troponin will be continued to monitor. Urinalysis shows urinary tract infection. Patient given ceftriaxone per she is has history of multidrug sensitive E. coli. Patient be admitted for acute delirium, medical monitoring. Case discussed with Dr. Barney who is willing to accept patient's care. EKG interpretation: Ventricular rate 81, paced rhythm, QS 184, QTC 416. Compared to EKG from 06/15/2021 showing no changes. Overall this EKG is un remarkable - Related Data Home Medications Medication Instructions Recorded Confirmed Acetaminophen Tab [Tylenol] 500 mg PO Q6H PRN 06/15/21 07/30/21 Calcium Carbonate [Calcium] 600 mg PO DAILY 06/15/21 07/30/21 Cholecalciferol [Vitamin D3 (125 125 mcg PO DAILY 06/15/21 07/30/21 Mcg = 5000 Iu)] Cranberry 4200 Mg 4,200 mg PO DAILY 06/15/21 07/30/21 Cyanocobalamin [Vitamin B-12] 500 - 1,000 mcg PO DAILY 06/15/21 07/30/21 Ferrous Sulfate [Iron (65 MG 325 mg PO BID 06/15/21 07/30/21 Elemental)] Magnesium 250 mg PO HS 06/15/21 07/30/21 Vitamin E (Dl,Tocopheryl Acet) 400 unit PO DAILY 06/15/21 07/30/21 [Vitamin E (400 Iu = 180 mg)] glipiZIDE [Glucotrol] 10 mg PO AC-BID 06/15/21 07/30/21 metFORMIN HCL 500 mg PO TID 06/15/21 07/30/21 Warfarin [Coumadin] 2 mg PO HS 07/30/21 07/30/21 Previous Rx's Medication Instructions Recorded Atorvastatin [Lipitor] 10 mg PO HS tab 05/11/17 Montelukast [Singulair] 10 mg PO HS #30 tab 09/23/19 carvediloL [Coreg] 6.25 mg PO AC-BID tab 06/22/21 Allergies Allergy/AdvReac Type Severity Reaction Status Date / Time influenza virus vaccine qs Allergy Unknown Unknown Verified 07/30/21 17:22 2017-18 (36 months up) [From Fluarix Quad [id number] (PF)] aspirin Allergy Unknown Verified 07/30/21 17:22 egg Allergy Diarrhea Verified 07/30/21 17:22 Penicillins Allergy Rash/Hives Verified 07/30/21 17:22 radish Allergy Rash/Hives Verified 07/30/21 17:22 red dye Allergy Unknown Verified 07/30/21 17:22 Review of Systems ROS Statement: Those systems with pertinent positive or pertinent negative responses have been documented in the HPI. ROS Other: All systems not noted in ROS Statement are negative. Past Medical History Past Medical History: Atrial Fibrillation, Asthma, Heart Failure, CVA/TIA, Diabetes Mellitus, Hyperlipidemia, Hypertension, Osteoarthritis (OA), Pneumonia Additional Past Medical History / Comment(s): Pt was recently hospitalized at [facility] on 06/04/21 with UTI, bilateral multiple kidney stones and covid. Other hx:Covid + recently, but son states pt had been moved out of [facility]'s covid unit prior to her discharge from there yesterday. Other hx: Current R heel wound, document states buttock decub, CVAs-son states no deficits, bradycardia with pacemaker, pulmonary hypertension, NIDDM type II, multiple UTIs History of Any Multi-Drug Resistant Organisms: None Reported Past Surgical History: Appendectomy, Cholecystectomy, Orthopedic Surgery, Pacemaker, Tonsillectomy Additional Past Surgical History / Comment(s): Bilateral total knee repl acements, bilateral carpal tunnel releases, colonoscopy, pacer placed at [facility]/date unknown Past Anesthesia/Blood Transfusion Reactions: No Reported Reaction Type of Cardiac Device: Permanent Pacemaker Device Placement Date:: cannot recall Past Psychological History: Depression Smoking Status: Former smoker - Past Family History Son(s) Family Medical History: Myocardial Infarction (AL) Additional Family Medical History / Comment(s): Son had a AL at the age of 47 yrs. Mother Family Medical History: Cancer Father Family Medical History: Cancer General Exam Limitations: altered mental status Course Vital Signs 07/30/21 15:59 Temperature 99.6 F Pulse Rate 72 Respiratory 18 Rate Blood Pressure 166/50 O2 Sat by Pulse 97 Oximetry Medical Decision Making - Lab Data Result diagrams: 07/30/21 17:02 07/30/21 17:02 Lab Results 07/30/21 07/30/21 07/30/21 Range/Units 17:02 17:02 17:02 WBC 14.3 H (3.8-10.6) k/uL RBC 3.12 L (3.80-5.40) m/uL Hgb 9.6 L D (11.4-16.0) gm/dL Hct 31.1 L (34.0-46.0) % MCV 99.8 D (80.0-100.0) fL MCH 30.9 (25.0-35.0) pg MCHC 31.0 (31.0-37.0) g/dL RDW 17.3 H (11.5-15.5) % Plt Count 244 (150-450) k/uL MPV 8.2 Neutrophils % 94 % Lymphocytes % 3 % Monocytes % 2 % Eosinophils % 0 % Basophils % 0 % Neutrophils # 13.4 H (1.3-7.7) k/uL Lymphocytes # 0.4 L (1.0-4.8) k/uL Monocytes # 0.3 (0-1.0) k/uL Eosinophils # 0.0 (0-0.7) k/uL Basophils # 0.0 (0-0.2) k/uL Hypochromasia Marked Anisocytosis Slight Macrocytosis Slight PT 21.1 H (9.0-12.0) sec INR 2.1 H (<1.2) APTT 30.5 H (22.0-30.0) sec Sodium 137 (137-145) mmol/L Potassium 5.4 H (3.5-5.1) mmol/L Chloride 105 (98-107) mmol/L Carbon Dioxide 25 (22-30) mmol/L Anion Gap 7 mmol/L BUN 41 H (7-17) mg/dL Creatinine 1.31 H (0.52-1.04) mg/dL Est GFR (CKD-EPI)AfAm 44 (>60 ml/min/1.73 sqM) Est GFR (CKD-EPI)NonAf 38 (>60 ml/min/1.73 sqM) Glucose 173 H (74-99) mg/dL Plasma Lactic Acid Giancarlo (0.7-2.0) mmol/L Calcium 11.4 H (8.4-10.2) mg/dL Magnesium 1.5 L (1.6-2.3) mg/dL Total Bilirubin 1.0 (0.2-1.3) mg/dL AST 17 (14-36) U/L ALT 8 (4-34) U/L Alkaline Phosphatase 109 (38-126) U/L Troponin I (0.000-0.034) ng/mL Total Protein 7.0 (6.3-8.2) g/dL Albumin 3.2 L (3.5-5.0) g/dL TSH 0.352 L (0.465-4.680) mIU/L Urine Color Urine Appearance (Clear) Urine pH (5.0-8.0) Ur Specific [place] (1.001-1.035) Urine Protein (Negative) Urine Glucose (UA) (Negative) Urine Ketones (Negative) Urine Blood (Negative) Urine Nitrite (Negative) Urine Bilirubin (Negative) Urine Urobilinogen (<2.0) mg/dL Ur Leukocyte Esterase (Negative) Urine RBC (0-5) /hpf Urine WBC (0-5) /hpf Urine WBC Clumps (None) /hpf Urine Bacteria (None) /hpf 07/30/21 07/30/21 07/30/21 Range/Units 17:02 17:02 20:28 WBC (3.8-10.6) k/uL RBC (3.80-5.40) m/uL Hgb (11.4-16.0) gm/dL Hct (34.0-46.0) % MCV (80.0-100.0) fL MCH (25.0-35.0) pg MCHC (31.0-37.0) g/dL RDW (11.5-15.5) % Plt Count (150-450) k/uL MPV Neutrophils % % Lymphocytes % % Monocytes % % Eosinophils % % Basophils % % Neutrophils # (1.3-7.7) k/uL Lymphocytes # (1.0-4.8) k/uL Monocytes # (0-1.0) k/uL Eosinophils # (0-0.7) k/uL Basophils # (0-0.2) k/uL Hypochromasia Anisocytosis Macrocytosis PT (9.0-12.0) sec INR (<1.2) APTT (22.0-30.0) sec Sodium (137-145) mmol/L Potassium (3.5-5.1) mmol/L Chloride (98-107) mmol/L Carbon Dioxide (22-30) mmol/L Anion Gap mmol/L BUN (7-17) mg/dL Creatinine (0.52-1.04) mg/dL Est GFR (CKD-EPI)AfAm (>60 ml/min/1.73 sqM) Est GFR (CKD-EPI)NonAf (>60 ml/min/1.73 sqM) Glucose (74-99) mg/dL Plasma Lactic Acid Giancarlo 1.1 (0.7-2.0) mmol/L Calcium (8.4-10.2) mg/dL Magnesium (1.6-2.3) mg/dL Total Bilirubin (0.2-1.3) mg/dL AST (14-36) U/L ALT (4-34) U/L Alkaline Phosphatase (38-126) U/L Troponin I 0.055 H* (0.000-0.034) ng/mL Total Protein (6.3-8.2) g/dL Albumin (3.5-5.0) g/dL TSH (0.465-4.680) mIU/L Urine Color Yellow Urine Appearance Turbid H (Clear) Urine pH 6.0 (5.0-8.0) Ur Specific [place] 1.019 (1.001-1.035) Urine Protein 2+ H (Negative) Urine Glucose (UA) Negative (Negative) Urine Ketones 1+ H (Negative) Urine Blood Moderate H (Negative) Urine Nitrite Positive H (Negative) Urine Bilirubin Negative (Negative) Urine Urobilinogen <2.0 (<2.0) mg/dL Ur Leukocyte Esterase Large H (Negative) Urine RBC 137 H (0-5) /hpf Urine WBC >182 H (0-5) /hpf Urine WBC Clumps Many H (None) /hpf Urine Bacteria Many H (None) /hpf Disposition Clinical Impression: UTI (urinary tract infection), Acute delirium Disposition: ADMITTED IP TO THIS [facility] Condition: Fair Referrals: Miranda Thompson MD [Primary Care Provider] - 1-2 days
[2021-07-30] MEDS ORDERED: MORPHINE SULFATE 4 MG/ML SYRINGE IV STA (16:41)
[2021-07-30 17:26] LABS: Anisocytosis Slight; Basophils % (A) 0 %; Eosinophils % (A) 0 %; HCT 31.1 % (34.0-46.0); Hypochromasia Marked; Lymphocytes # (A) 0.4 k/uL (1.0-4.8); Lymphocytes % (A) 3 %; MCH 30.9 pg (25.0-35.0); Macrocytosis Slight; Mean Platelet Volume 8.2; Monocytes # (A) 0.3 k/uL (0-1.0); Monocytes % (A) 2 %; Neutrophils # (A) 13.4 k/uL (1.3-7.7); Neutrophils % (A) 94 %; Platelet Count 244 k/uL (150-450); RBC 3.12 m/uL (3.80-5.40); RDW 17.3 % (11.5-15.5); WBC 14.3 k/uL (3.8-10.6)
[2021-07-30 17:41] LABS: HGB 9.6 gm/dL (11.4-16.0); MCV 99.8 fL (80.0-100.0)
[2021-07-30 17:42] LABS: INR 2.1 (<1.2); Partial Thromboplastin Time 30.5 sec (22.0-30.0); Prothrombin Time 21.1 sec (9.0-12.0)
[2021-07-30 17:43] LABS: Albumin 3.2 g/dL (3.5-5.0); Calcium 11.4 mg/dL (8.4-10.2); Magnesium 1.5 mg/dL (1.6-2.3); Potassium 5.4 mmol/L (3.5-5.1)
--- NOTE | 2021-07-30 17:54 | CT ---
EXAMINATION TYPE: CT brain wo con CT DLP: 1060.4 mGycm, Automated exposure control for dose reduction was used. DATE OF EXAM: 07/30/2021 5:40 PM COMPARISON: Prior CT Brain from 01/16/2021. CLINICAL INDICATION:Female, 81 years old with history of altered mental status. TECHNIQUE: Brain: Multiple axial CT images of the brain were obtained without IV contrast. FINDINGS: Brain: Extra-axial spaces: No abnormal extra-axial fluid collections. Ventricular system: Dilatation in proportion to cerebral atrophy. Cerebral parenchyma: Similar bilateral frontal lobe encephalomalacia Cerebral atrophy. No acute intra parenchymal hemorrhage or mass effect. The bowser-white junction is well differentiated. Cerebellum: Encephalomalacia in the left cerebellar hemisphere. Mass effect: No evidence of midline shift. Intracranial vasculature: unremarkable Soft tissues: Normal. Calvarium/osseous structures: No depressed skull fracture. Paranasal sinuses and mastoid air cells: Visualized orbits: Orbital contents are intact. IMPRESSION: 1. No acute intracranial process. 2. 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 3. 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
[2021-07-30] MEDS ORDERED: LORazepam 2 MG/ML INJ IV STA ×2 (18:06→20:07)
[2021-07-30 21:08] LABS: Appearance,Urine Turbid (Clear); Bacteria,Urine Many /hpf; Bilirubin,Urine Negative (Negative); Blood,Urine Moderate (Negative); Color,Urine Yellow; Glucose,Urine (UA) Negative (Negative); Ketones,Urine 1+ (Negative); Leukocyte Esterase,Urine Large (Negative); Nitrite,Urine Positive (Negative); Protein,Urine 2+ (Negative); RBC,Urine 137 /hpf (0-5); Specific Gravity,Urine 1.019 (1.001-1.035); Urobilinogen,Urine <2.0 mg/dL (<2.0); WBC,Urine >182 /hpf (0-5)
[2021-07-30] MEDS ORDERED: cefTRIAXone IN SWFI 1,000 MG/10 ML SYRINGE IVP STA (21:12)
[2021-07-30] MEDS ORDERED: NALOXONE 0.4 MG/ML 1 ML VIAL IV PRN (21:13)
[2021-07-30] MEDS ORDERED: SODIUM CHLORIDE 0.9% 1,000 ML IV SCH (21:15)
[2021-07-30] MEDS: MAGNESIUM SULFATE-D5W PMX 1 GM in DEXTROSE/WATER 1 100ML.BAG IVPB SCH ×2 (21:40→22:40)
[2021-07-31] MEDS ORDERED: OFIRMEV PER PHARMACY MISCELLANE PRN (04:09)
[2021-07-31] MEDS ORDERED: ACETAMINOPHEN IV (For NPO) 100 ML IVPB PRN ×2 (06:00)
[2021-07-31] MEDS: FERROUS SULFATE 325 MG TAB PO SCH ×3 (07:46→21:19)
[2021-07-31] MEDS: carvediloL 6.25 MG TAB PO SCH ×2 (07:46→17:55)
[2021-07-31] MEDS: VITAMIN E (DL,TOCOPHERYL ACET) 400 UNIT (180 MG) CAP PO SCH (07:46)
[2021-07-31] MEDS: CYANOCOBALAMIN 500 MCG TAB PO SCH (07:46)
[2021-07-31] MEDS: CALCIUM CARBONATE 500 MG CHEWABLE PO SCH (07:46)
[2021-07-31] MEDS: CHOLECALCIFEROL 125 MCG (5000 IU) TABLET PO SCH (09:00)
[2021-07-31] MEDS: INSULIN ASPART (NovoLOG) 100 UNIT/ML VIAL SQ SCH ×4 (09:54→21:02)
[2021-07-31 10:17] LABS: Anisocytosis Slight; Basophils % (A) 0 %; Eosinophils % (A) 0 %; HCT 30.6 % (34.0-46.0); HGB 9.5 gm/dL (11.4-16.0); Hypochromasia Marked; Lymphocytes # (A) 0.9 k/uL (1.0-4.8); Lymphocytes % (A) 9 %; MCH 31.1 pg (25.0-35.0); MCV 100.4 fL (80.0-100.0); Macrocytosis Slight; Mean Platelet Volume 8.3; Monocytes # (A) 0.5 k/uL (0-1.0); Monocytes % (A) 5 %; Neutrophils # (A) 8.5 k/uL (1.3-7.7); Neutrophils % (A) 83 %; Platelet Count 195 k/uL (150-450); RBC 3.05 m/uL (3.80-5.40); RDW 17.5 % (11.5-15.5); WBC 10.3 k/uL (3.8-10.6)
--- NOTE | 2021-07-31 10:18 | P.HPIM ---
History of Present Illness H&P Date: 07/31/21 Chief Complaint: Delirium urinary tract infection This is an 81-year-old female patient of Dr. Thompson who presented with concerns of altered mental status changes. At this time patient is confused in bed history is obtained from medical record. According to record patient was noticed to have increased confusion and less responsive this a.m. by her son and caregiver. Patient was recently discharged possibly 1 month ago from [facility]. Patient does have past medical history of atrial fibrillation in which she is maintained on Coumadin, asthma, heart failure, CVA, diabetes mellitus, hyperlipidemia, hypertension, osteoarthritis and history of COVID-19 infection. Patient also has history of multiple urinary tract infections and ulcer to sacral area and right heel. Head CT was completed showing no acute intracranial process nonspecific white matter changes likely secondary to chronic microangiopathy. UA positive for urinary tract infection. Creatinine also slig htly elevated at 1.31 and bun 41 potassium 5.4. Troponin also slightly elevated at 0.055. Patient with elevated temperature 102.6. At this time patient will be admitted patient started on IV Rocephin. Urine culture and blood cultures ordered. Repeat troponin ordered. Cardiology services will be consulted. Current INR 2.1 continue current dose of Coumadin. Review of Systems please refer to HPI otherwise unremarkable Past Medical History Past Medical History: Atrial Fibrillation, Asthma, Heart Failure, CVA/TIA, Diabetes Mellitus, Hyperlipidemia, Hypertension, Osteoarthritis (OA), Pneumonia Additional Past Medical History / Comment(s): Pt was recently hospitalized at [facility] on 06/04/21 with UTI, bilateral multiple kidney stones and covid. Other hx:Covid + recently, but son states pt had been moved out of [facility]'s covid unit prior to her discharge from there yesterday. Other hx: Current R heel wound, document states buttock decub, CVAs-son states no deficits, bradycardia with pacemaker, pulmonary hypertension, NIDDM type II, multiple UTIs History of Any Multi-Drug Resistant Organisms: None Reported Past Surgical History: Appendectomy, Cholecystectomy, Orthopedic Surgery, Pacemaker, Tonsillectomy Additional Past Surgical History / Comment(s): Bilateral total knee replacements, bilateral carpal tunnel releases, colonoscopy, pacer placed at [facility]/date unknown Past Anesthesia/Blood Transfusion Reactions: No Reported Reaction Type of Cardiac Device: Permanent Pacemaker Device Placement Date:: cannot recall Smoking Status: Former smoker - Past Family History Son(s) Family Medical History: Myocardial Infarction ([place]) Additional Family Medical History / Comment(s): Son had a PR at the age of 47 yrs. Mother Family Medical History: Cancer Father Family Medical History: Cancer Medications and Allergies Home Medications Medication Instructions Recorded Confirmed Type Atorvastatin [Lipitor] 10 mg PO HS tab 05/11/17 07/30/21 Rx Montelukast [Singulair] 10 mg PO HS #30 tab 02/03/19 07/30/21 Rx Acetaminophen Tab [Tylenol] 500 mg PO Q6H PRN 06/15/21 07/30/21 History Calcium Carbonate [Calcium] 600 mg PO DAILY 06/15/21 07/30/21 History Cholecalciferol [Vitamin D3 (125 125 mcg PO DAILY 06/15/21 07/30/21 History Mcg = 5000 Iu)] Cranberry 4200 Mg 4,200 mg PO DAILY 06/15/21 07/30/21 History Cyanocobalamin [Vitamin B-12] 500 - 1,000 mcg PO DAILY 06/15/21 07/30/21 History Ferrous Sulfate [Iron (65 MG 325 mg PO BID 06/15/21 07/30/21 History Elemental)] Magnesium 250 mg PO HS 06/15/21 07/30/21 History Vitamin E (Dl,Tocopheryl Acet) 400 unit PO DAILY 06/15/21 07/30/21 History [Vitamin E (400 Iu = 180 mg)] glipiZIDE [Glucotrol] 10 mg PO AC-BID 06/15/21 07/30/21 History metFORMIN HCL 500 mg PO TID 06/15/21 07/30/21 History carvediloL [Coreg] 6.25 mg PO AC-BID tab 06/22/21 07/30/21 Rx Warfarin [Coumadin] 2 mg PO HS 07/30/21 07/30/21 History Allergies Allergy/AdvReac Type Severity Reaction Status Date / Time influenza virus vaccine qs Allergy Unknown Unknown Verified 07/30/21 17:22 2016- (36 months up) [From Fluarix Quad 4175-5440 (PF)] aspirin Allergy Unknown Verified 07/30/21 17:22 egg Allergy Diarrhea Verified 07/30/21 17:22 Penicillins Allergy Rash/Hives Verified 07/30/21 17:22 radish Allergy Rash/Hives Verified 07/30/21 17:22 red dye Allergy Unknown Verified 07/30/21 17:22 Physical Exam Vitals: Vital Signs Temp Pulse Pulse Resp BP BP BP 07/31/21 07:25 98.6 F 69 20 167/68 07/31/21 05:23 100.2 F H 07/31/21 02:30 101.8 F H 71 19 150/54 07/31/21 02:00 102.6 F H 53 L 16 134/54 07/31/21 01:08 53 L 16 07/30/21 23:55 99.6 F 70 16 137/57 07/30/21 22:00 70 18 121/78 07/30/21 20:00 73 18 127/75 07/30/21 18:00 68 18 126/44 07/30/21 15:59 99.6 F 72 18 166/50 Pulse Ox 07/31/21 07:25 96 07/31/21 05:23 07/31/21 02:30 98 07/31/21 02:00 100 07/31/21 01:08 07/30/21 23:55 98 07/30/21 22:00 98 07/30/21 20:00 98 07/30/21 18:00 98 07/30/21 15:59 97 Intake and Output 07/30/21 07/31/21 07/31/21 22:59 06:59 14:59 Output Total 200 Balance -200 Output: Urine 200 Other: Voiding Method Indwelling Catheter Weight 72.575 kg 72.575 kg Head normocephalic Neck supple Lungs clear to auscultation bilaterally no wheezing or crackles Heart regular rate and rhythm S1-S2, no rub or gallop Abdomen is soft nontender nondistended positive bowel sounds no hepatosplenomegaly Extremities no edema Neuro increased confusion Results CBC & Chem 7: 07/30/21 17:02 07/30/21 17:02 Labs: Abnormal Lab Results - Last 24 Hours (Table) 07/30/21 07/30/21 07/30/21 Range/Units 17:02 17:02 17:02 WBC 14.3 H (3.8-10.6) k/uL RBC 3.12 L (3.80-5.40) m/uL Hgb 9.6 L D (11.4-16.0) gm/dL Hct 31.1 L (34.0-46.0) % RDW 17.3 H (11.5-15.5) % Neutrophils # 13.4 H (1.3-7.7) k/uL Lymphocytes # 0.4 L (1.0-4.8) k/uL PT 21.1 H (9.0-12.0) sec INR 2.1 H (<1.2) APTT 30.5 H (22.0-30.0) sec Potassium 5.4 H (3.5-5.1) mmol/L BUN 41 H (7-17) mg/dL Creatinine 1.31 H (0.52-1.04) mg/dL Glucose 173 H (74-99) mg/dL Calcium 11.4 H (8.4-10.2) mg/dL Magnesium 1.5 L (1.6-2.3) mg/dL Troponin I (0.000-0.034) ng/mL Albumin 3.2 L (3.5-5.0) g/dL TSH 0.352 L (0.465-4.680) mIU/L Urine Appearance (Clear) Urine Protein (Negative) Urine Ketones (Negative) Urine Blood (Negative) Urine Nitrite (Negative) Ur Leukocyte Esterase (Negative) Urine RBC (0-5) /hpf Urine WBC (0-5) /hpf Urine WBC Clumps (None) /hpf Urine Bacteria (None) /hpf 07/30/21 07/30/21 Range/Units 17:02 20:28 WBC (3.8-10.6) k/uL RBC (3.80-5.40) m/uL Hgb (11.4-16.0) gm/dL Hct (34.0-46.0) % RDW (11.5-15.5) % Neutrophils # (1.3-7.7) k/uL Lymphocytes # (1.0-4.8) k/uL PT (9.0-12.0) sec INR (<1.2) APTT (22.0-30.0) sec Potassium (3.5-5.1) mmol/L BUN (7-17) mg/dL Creatinine (0.52-1.04) mg/dL Glucose (74-99) mg/dL Calcium (8.4-10.2) mg/dL Magnesium (1.6-2.3) mg/dL Troponin I 0.055 H* (0.000-0.034) ng/mL Albumin (3.5-5.0) g/dL TSH (0.465-4.680) mIU/L Urine Appearance Turbid H (Clear) Urine Protein 2+ H (Negative) Urine Ketones 1+ H (Negative) Urine Blood Moderate H (Negative) Urine Nitrite Positive H (Negative) Ur Leukocyte Esterase Large H (Negative) Urine RBC 137 H (0-5) /hpf Urine WBC >182 H (0-5) /hpf Urine WBC Clumps Many H (None) /hpf Urine Bacteria Many H (None) /hpf Assessment and Plan Assessment: 1. Altered mental status likely secondary from urinary tract infection 2. Urinary tract infection with elevated temperature and white blood cell count 3. History of atrial fibrillation maintained on Coumadin. Coumadin resumed. INR ordered 4. History of CVA 5. History of recent COVID-19 infection 6. History of hyperlipidemia 7. History of diabetes mellitus type 2 8. History of essential hypertension DVT prophylaxis Coumadin. GI prophylaxis Protonix Patient started on IV antibiotics Urine and blood cultures ordered Repeat labs ordered PT OT and social work services consulted Time with Patient: Greater than 30 (Greater than 60% of the total time spent in counseling and coordination of care)
[2021-07-31 10:21] LABS: INR 2.1 (<1.2); Prothrombin Time 21.4 sec (9.0-12.0)
[2021-07-31 10:34] LABS: ALT 7 U/L (4-34); AST 18 U/L (14-36); African American GFR (CKD) 48 (>60 ml/min/1.73 sqM); Albumin 2.8 g/dL (3.5-5.0); Albumin/Globulin Ratio 0.8; Alkaline Phosphatase 89 U/L (38-126); Anion Gap 2 mmol/L; Blood Urea Nitrogen 43 mg/dL (7-17); Calcium 11.2 mg/dL (8.4-10.2); Carbon Dioxide 27 mmol/L (22-30); Chloride 108 mmol/L (98-107); Globulin 3.7 g/dL; Glucose 177 mg/dL (74-99); Non-African American GFR(CKD) 42 (>60 ml/min/1.73 sqM); Potassium 4.9 mmol/L (3.5-5.1); Sodium 137 mmol/L (137-145); Total Bilirubin 0.7 mg/dL (0.2-1.3); Total Protein 6.5 g/dL (6.3-8.2)
[2021-07-31 12:13] LABS: Glucose,Whole Blood 179 mg/dL (75-99)
[2021-07-31] MEDS: SODIUM CHLORIDE 0.9% 1,000 ML IV SCH ×2 (12:55→21:03)
[2021-07-31] MEDS: HYDROmorphone 0.5 MG/0.5 ML SYRINGE IVP PRN (14:19)
[2021-07-31 17:51] LABS: Glucose,Whole Blood 102 mg/dL (75-99)
[2021-07-31] MEDS ORDERED: WARFARIN 2 MG TAB PO SCH (18:00)
[2021-07-31 20:32] LABS: Glucose,Whole Blood 118 mg/dL (75-99)
[2021-07-31] MEDS: MAGNESIUM OXIDE 400 MG TAB PO SCH ×2 (21:03→21:19)
[2021-07-31] MEDS: ATORVASTATIN 10 MG TAB PO SCH ×2 (21:03→21:18)
[2021-07-31] MEDS: MONTELUKAST 10 MG TAB PO SCH ×2 (21:03→21:19)
[2021-08-01 07:42] LABS: Glucose,Whole Blood 149 mg/dL (75-99)
[2021-08-01] MEDS: CALCIUM CARBONATE 500 MG CHEWABLE PO SCH ×2 (08:16→09:00)
[2021-08-01] MEDS: INSULIN ASPART (NovoLOG) 100 UNIT/ML VIAL SQ SCH ×4 (08:16→21:13)
[2021-08-01] MEDS: FERROUS SULFATE 325 MG TAB PO SCH ×2 (08:17→21:14)
[2021-08-01] MEDS: CYANOCOBALAMIN 500 MCG TAB PO SCH (08:17)
[2021-08-01] MEDS: PANTOPRAZOLE 40 MG TABLET PO SCH (08:17)
[2021-08-01] MEDS: carvediloL 6.25 MG TAB PO SCH ×2 (08:17→18:42)
[2021-08-01] MEDS: CHOLECALCIFEROL 125 MCG (5000 IU) TABLET PO SCH (08:17)
[2021-08-01 10:43] LABS: Basophils # (A) 0.02 X 10*3/uL (0.00-0.10); Basophils % (A) 0.2 %; Eosinophils # (A) 0 X 10*3/uL (0.04-0.35); Eosinophils % (A) 0 %; HCT 28.1 % (37.2-46.3); HGB 8.2 g/dL (12.0-15.0); Lymphocytes # (A) 1.11 X 10*3/uL (0.90-5.00); Lymphocytes % (A) 12.8 %; MCH 29.3 pg (27.0-32.0); MCHC 29.2 g/dL (32.0-37.0); MCV 100.4 fL (80.0-97.0); Mean Platelet Volume 11.7 fL (9.5-12.2); Monocytes # (A) 0.81 X 10*3/uL (0.20-1.00); Monocytes % (A) 9.3 %; NRBC Per 100 WBC 0 /100 WBCS (0.0-0.0); Neutrophils # (A) 6.65 X 10*3/uL (1.80-7.70); Neutrophils % (A) 76.7 %; Platelet Count 180 X 10*3/uL (140-440); RDW 18.5 % (11.5-14.5); WBC 8.68 X 10*3/uL (4.50-10.00)
--- NOTE | 2021-08-01 10:49 | P.CRDCN ---
History of Present Illness History of present illness: HISTORY OF PRESENT ILLNESS: This is a 81 year old female with a past medical history significant for cardiomyopathy with previous EF 20-25%, congestive heart failure, atrial fi brillation on Coumadin, CVA, HTN, and HLD. 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 Vu. We have been asked to see the patient in consultation for abnormal troponins. Patient is a poor historian. She presents to the hospital with worsening alerted mental status and brought to the ER per her son. Patient is unable to tell me why she came into the hospital but she is complaining of right leg pain. Per the emergency department yesterday around 5 AM patient was complaining of worsening right lower extremity pain. Apparently patient's son also noted that the patient was having issues grabbing things, becoming more lethargic and less responsive. Prior to hospitalization patient h ad a fever of 102, son was concerned about an infection. Patient denies any chest pain or shortness of breath. Troponins were drawn elevated at 0.05, 0.07. Patient was admitted in 06/2021 with Covid 19 infection. Cardiology evaluated the patient for possible syncope. Patient underwent an echocardiogram within normal EF and no significant wall motion abnormalities. Her pacemaker was interrogated with no acute events. No acute events on telemetry. Patient's kidney function and acute kidney injury her losartan was discontinued and her carvedilol was also decreased to 6.25 mg twice a day DIAGNOSTICS EKG reveals V paced rhythm Brain CT with no acute intracranial process. Ancef LMS of the frontal lobes and left cerebral hemisphere similar to prior Laboratory data: UA noted for a UTI, troponin 0.05, 0.07, WBC 10.3, hemoglobin 9.5, INR 2.1, sodium 137, potassium 4.9, BUN 43, serum creatinine 1.2 Current home cardiac medications include warfarin 5 mg at night, carvedilol 6.25 mg twice a day, Lipitor 10 mg at night 06/16/2021 Echocardiogram completed revealed ejection fraction 50-55%, mild mitral regurgitation, and mild tricuspid regurgitation REVIEW OF SYSTEMS: At the time of my exam: CONSTITUTIONAL: Denies fever or chills. HEENT: Denies blurred vision, vision changes, or eye pain. Denies hemoptysis CARDIOVASCULAR: Denies chest pain. Denies orthopnea. Denies PND. Denies palpitations RESPIRATORY: Denies shortness of breath. GASTROINTESTINAL: Denies abdominal pain. Denies nausea or vomiting. HEMATOLOGIC: Denies bleeding disorders. GENITOURINARY: Denies any blood in urine. SKIN: Denies pruitis. Denies rash. PHYSICAL EXAM: VITAL SIGNS: Reviewed. GENERAL: Well-developed in no acute distress. HEENT: Head is normocephalic. Pupils are equal, round. Sclerae anicteric. Mucous membranes of the mouth are moist. Neck supple. No JVD or thyromegaly LUNGS: Respirations even and unlabored. Lungs essentially clear to auscultation bilaterally. HEART: Regular rate and rhythm. S1 and S2 heard. Systolic murmur noted. ABDOMEN: Soft. Nondistended. Nontender. EXTREMITIES: Normal range of motion. No clubbing or cyanosis. Peripheral pulses intact. Trace lower extremity edema. Patient has a wound to her right lower extremity with gauze dressing noted. NEUROLOGIC: Awake and alert. Oriented x 1-2. ASSESSMENT: Abnormal troponins, not indicative of acute coronary syndrome, likely related to infection, patient without any chest pain, EKG with no evidence of ischemia. Altered mental status Urinary tract infection Diabetes type 2 Permanent atrial fibrillation, on anticoagulation with Coumadin History of PPM implantation Hypertension Hyperlipidemia History of CVA History of cardiomyopathy with ejection fraction 20-25%, with recovery of LV function Chronic congestive heart failure with preserved EF, currently euvolemic, ejection fraction 50-55% Covid 19 in May 2021 Chronic kidney disease stage 3 PLAN: From a cardiology perspective, no further inpatient recommendations at this time. Abnormal troponins not indicative of acute coronary syndrome, likely related to infection, patient without any chest pain, EKG with no evidence of ischemia. Recent echocardiogram normal EF with no significant wall motion abnormalities. Monitor kidney function and may restart patient's Losartan. Continue Coumadin. statin and Carvediol We will follow the patient as needed. Please reach out with any further questions or concerns. Nurse practitioner note has been reviewed by physician. Signing provider agrees with the documented findings, assessment, and plan of care. Past Medical History Past Medical History: Atrial Fibrillation, Asthma, Heart Failure, CVA/TIA, Diabetes Mellitus, Hyperlipidemia, Hypertension, Osteoarthritis (OA), Pneumonia Additional Past Medical History / Comment(s): Pt was recently hospitalized at [facility] on 06/04/21 with UTI, bilateral multiple kidney stones and covid. Other hx:Covid + recently, but son states pt had been moved out of [facility]'s covid unit prior to her discharge from there yesterday. Other hx: Current R heel wound, document states buttock decub, CVAs-son states no deficits, bradycardia with pacemaker, pulmonary hypertension, NIDDM type II, multiple UTIs History of Any Multi-Drug Resistant Organisms: None Reported Past Surgical History: Appendectomy, Cholecystectomy, Orthopedic Surgery, Pacemaker, Tonsillectomy Additional Past Surgical History / Comment(s): Bilateral total knee replacements, bilateral carpal tunnel releases, colonoscopy, pacer placed at [facility]/date unknown Past Anesthesia/Blood Transfusion Reactions: No Reported Reaction Type of Cardiac Device: Permanent Pacemaker Device Placement Date:: cannot recall Smoking Status: Former smoker - Past Family History Son(s) Family Medical History: Myocardial Infarction ([place]) Additional Family Medical History / Comment(s): Son had a [place] at the age of 47 yrs. Mother Family Medical History: Cancer Father Family Medical History: Cancer Medications and Allergies Home Medications Medication Instructions Recorded Confirmed Type Atorvastatin [Lipitor] 10 mg PO HS tab 05/11/17 07/30/21 Rx Montelukast [Singulair] 10 mg PO HS #30 tab 02/03/19 07/30/21 Rx Acetaminophen Tab [Tylenol] 500 mg PO Q6H PRN 06/15/21 07/30/21 History Calcium Carbonate [Calcium] 600 mg PO DAILY 06/15/21 07/30/21 History Cholecalciferol [Vitamin D3 (125 125 mcg PO DAILY 06/15/21 07/30/21 History Mcg = 5000 Iu)] Cranberry 4200 Mg 4,200 mg PO DAILY 06/15/21 07/30/21 History Cyanocobalamin [Vitamin B-12] 500 - 1,000 mcg PO DAILY 06/15/21 07/30/21 History Ferrous Sulfate [Iron (65 MG 325 mg PO BID 06/15/21 07/30/21 History Elemental)] Magnesium 250 mg PO HS 06/15/21 07/30/21 History Vitamin E (Dl,Tocopheryl Acet) 400 unit PO DAILY 06/15/21 07/30/21 History [Vitamin E (400 Iu = 180 mg)] glipiZIDE [Glucotrol] 10 mg PO AC-BID 06/15/21 07/30/21 History metFORMIN HCL 500 mg PO TID 06/15/21 07/30/21 History carvediloL [Coreg] 6.25 mg PO AC-BID tab 06/22/21 07/30/21 Rx Warfarin [Coumadin] 2 mg PO HS 07/30/21 07/30/21 History Allergies Allergy/AdvReac Type Severity Reaction Status Date / Time influenza virus vaccine qs Allergy Unknown Unknown Verified 07/30/21 17:22 2016- (36 months up) [From Fluarix Quad 8574-7386 (PF)] aspirin Allergy Unknown Verified 07/30/21 17:22 egg Allergy Diarrhea Verified 07/30/21 17:22 Penicillins Allergy Rash/Hives Verified 07/30/21 17:22 radish Allergy Rash/Hives Verified 07/30/21 17:22 red dye Allergy Unknown Verified 07/30/21 17:22 Physical Exam Vitals: Vital Signs Temp Pulse Resp BP Pulse Ox 08/01/21 00:56 99.1 F 70 16 158/67 98 07/31/21 19:25 97.5 F L 67 16 161/68 98 07/31/21 15:00 98.2 F 70 19 117/50 97 07/31/21 12:09 69 20 07/31/21 08:30 69 20 07/31/21 07:25 98.6 F 69 20 167/68 96 Intake and Output 07/31/21 08/01/21 08/01/21 22:59 06:59 14:59 Output Total 450 200 Balance -450 -200 Output: Urine 450 200 Other: Voiding Method Indwelling Catheter Results 07/31/21 09:55 07/31/21 09:55 Cardiac Enzymes 07/31/21 07/31/21 Range/Units 09:55 09:55 AST 18 (14-36) U/L Troponin I 0.072 H* (0.000-0.034) ng/mL Coagulation 07/31/21 Range/Units 09:55 PT 21.4 H (9.0-12.0) sec CBC 07/31/21 Range/Units 09:55 WBC 10.3 (3.8-10.6) k/uL RBC 3.05 L (3.80-5.40) m/uL Hgb 9.5 L (11.4-16.0) gm/dL Hct 30.6 L (34.0-46.0) % Plt Count 195 (150-450) k/uL Comprehensive Metabolic Panel 07/31/21 Range/Units 09:55 Sodium 137 (137-145) mmol/L Potassium 4.9 (3.5-5.1) mmol/L Chloride 108 H (98-107) mmol/L Carbon Dioxide 27 (22-30) mmol/L BUN 43 H (7-17) mg/dL Creatinine 1.21 H (0.52-1.04) mg/dL Glucose 177 H (74-99) mg/dL Calcium 11.2 H (8.4-10.2) mg/dL AST 18 (14-36) U/L ALT 7 (4-34) U/L Alkaline Phosphatase 89 (38-126) U/L Total Protein 6.5 (6.3-8.2) g/dL Albumin 2.8 L (3.5-5.0) g/dL Current Medications Generic Name Dose Route Start Last Admin Trade Name Freq PRN Reason Stop Dose Admin Acetaminophen 650 mg 07/30/21 21:13 Acetaminophen Tab 325 Mg Tab PO Q6HR PRN Mild Pain or Fever > 100.5 Atorvastatin Calcium 10 mg 07/31/21 21:00 07/31/21 21:18 Atorvastatin 10 Mg Tab PO Not Given HS [facility] Calcium Carbonate/Glycine 500 mg 07/31/21 09:00 07/31/21 07:46 Calcium Carbonate 500 Mg Chewable PO 500 mg DAILY JANEEN Administration Carvedilol 6.25 mg 07/31/21 07:30 07/31/21 17:55 Carvedilol 6.25 Mg Tab PO Not Given AC-BID [facility] Cholecalciferol 125 mcg 07/31/21 09:00 07/31/21 09:00 Cholecalciferol 125 Mcg (5000 Iu) Tablet PO 125 mcg DAILY JANEEN Administration Cyanocobalamin 500 mcg 07/31/21 07:30 07/31/21 07:46 Cyanocobalamin 500 Mcg Tab PO 500 mcg W/BRKFST JANEEN Administration Ferrous Sulfate 325 mg 07/31/21 09:00 07/31/21 21:19 Ferrous Sulfate 325 Mg Tab PO Not Given BID [facility] Hydromorphone HCl 0.5 mg 07/31/21 11:23 07/31/21 14:19 Hydromorphone 0.5 Mg/0.5 Ml Syringe IVP 0.5 mg Q3HR PRN Administration Pain Acetaminophen 100 mls @ 400 mls/hr 07/31/21 06:00 07/31/21 04:43 Ofirmev (For Npo Patients) IVPB 08/01/21 23:00 400 mls/hr Q6HR PRN Administration Fever Sodium Chloride 1,000 mls @ 75 mls/hr 07/31/21 10:15 07/31/21 21:03 Saline 0.9% IV 75 mls/hr .[id number] JANEEN Administration Ceftriaxone Sodium 2 gm/ 50 mls @ 100 mls/hr 07/31/21 21:00 07/31/21 21:03 Sodium Chloride IVPB 100 mls/hr Q24H JANEEN Administration Insulin Aspart 0 unit 07/31/21 07:30 07/31/21 21:02 Insulin Aspart (Novolog) 100 Unit/Ml Vial SQ Not Given ACHS JANEEN Protocol Magnesium Oxide 400 mg 07/31/21 21:00 07/31/21 21:19 Magnesium Oxide 400 Mg Tab PO Not Given HS [facility] Miscellaneous Information 1 each 07/31/21 04:09 Ofirmev Per Pharmacy MISCELLANE DIRECTED PRN Fever Miscellaneous Information 0 each 07/31/21 09:22 Warfarin Per Pharmacy MISCELLANE DIRECTED PRN PER PROTOCOL Montelukast Sodium 10 mg 07/31/21 21:00 07/31/21 21:19 Montelukast 10 Mg Tab PO Not Given HS JANEEN Naloxone HCl 0.2 mg 07/30/21 21:13 Naloxone 0.4 Mg/Ml 1 Ml Vial IV Q2M PRN Opioid Reversal Pantoprazole Sodium 40 mg 08/01/21 07:30 Pantoprazole 40 Mg Tablet PO AC-BRKFST [facility] Vitamin E 400 unit 07/31/21 09:00 07/31/21 07:46 Vitamin E (Dl,Tocopheryl Acet) 400 Unit (180 Mg) Cap PO 400 unit DAILY JANEEN Administration Warfarin Sodium 2 mg 07/31/21 18:00 07/31/21 18:01 Warfarin 2 Mg Tab PO 2 mg DAILY@1800 JANEEN Administration Protocol Intake and Output 07/31/21 08/01/21 08/01/21 22:59 06:59 14:59 Output Total 450 200 Balance -450 -200 Output: Urine 450 200 Other: Voiding Method Indwelling Catheter 07/31/21 09:55 07/31/21 09:55
[2021-08-01 11:03] LABS: African American GFR (CKD) 54.1 (60.0-200.0); Albumin 2.7 g/dL (3.8-4.9); Albumin/Globulin Ratio 0.82 (1.60-3.17); Anion Gap 9.9 mmol/L (10.00-18.00); BUN/Creat Ratio 31.91 Ratio (12.00-20.00); Blood Urea Nitrogen 35.1 mg/dL (9.0-27.0); Calcium 11.3 mg/dL (8.7-10.3); Carbon Dioxide 23.1 mmol/L (20.0-27.5); Globulin 3.3 g/dL (1.6-3.3); Non-African American GFR(CKD) 46.7 (60.0-200.0); Potassium 4.4 mmol/L (3.5-5.5); Total Bilirubin 0.2 mg/dL (0.30-1.20)
[2021-08-01 11:22] LABS: INR 1.88 (0.90-1.11); Prothrombin Time 20.6 sec (9.9-11.9)
[2021-08-01 12:08] LABS: Glucose,Whole Blood 207 mg/dL (75-99)
--- NOTE | 2021-08-01 14:28 | XR ---
EXAMINATION TYPE: XR Hip Bilateral and AP pelvis DATE OF EXAM: 08/01/2021 COMPARISON: NONE HISTORY: Pain TECHNIQUE: A single AP view of the pelvis is obtained. Two views of the bilateral hip are obtained. FINDINGS: There is diffuse osteopenia with mild narrowing of the hip joints bilaterally. Hypertrophi c change of the acetabulum. Vascular calcifications noted. Surgical clips in the pelvis. Soft tissue calcification adjacent to the proximal right femur. Linear band of density involving the right femora l neck. IMPRESSION: 1. Arthropathy correlate for femoral acetabular impingement. 2. There is a linear band of sclerosis involving the right femoral neck. CT scan of the pelvis is rec ommended..
[2021-08-01] MEDS: ACETAMINOPHEN TAB 325 MG TAB PO PRN (14:40)
[2021-08-01] MEDS: HYDROmorphone 0.5 MG/0.5 ML SYRINGE IVP PRN (15:18)
[2021-08-01 15:28] VITALS: BMI 25.8
[2021-08-01] MEDS: SODIUM CHLORIDE 0.9% 1,000 ML IV SCH (17:18)
[2021-08-01 17:24] LABS: Glucose,Whole Blood 141 mg/dL (75-99)
[2021-08-01] MEDS ORDERED: WARFARIN 2.5 MG TAB PO ONE (18:00)
--- NOTE | 2021-08-01 19:23 | P.PN ---
Subjective Progress Note Date: 08/01/21 This is an 81-year-old female patient of Dr. Thompson who presented with concerns of altered mental status changes. At this time patient is confused in bed history is obtained from medical record. According to record patient was noticed to have increased confusion and less responsive this a.m. by her son and caregiver. Patient was recently discharged possibly 1 month ago from [facility]. Patient does have past medical history of atrial fibrillation in which she is maintained on Coumadin, asthma, heart failure, CVA, diabetes mellitus, hyperlipidemia, hypertension, osteoarthritis and history of COVID-19 infection. Patient also has history of multiple urinary tract infections and ulcer to sacral area and right heel. Head CT was completed showing no acute intracranial process nonspecific white matter changes likely secondary to chronic microangiopathy. UA positive for urinary tract infection. Creatinine also slightly elevated at 1.31 and bun 41 potassium 5.4. Troponin also slightly elevated at 0.055. Patient with elevated temperature 102.6. At this time patient will be admitted patient started on IV Rocephin. Urine culture and blood cultures ordered. Repeat troponin ordered. Cardiology services will be consulted. Current INR 2.1 continue current dose of Coumadin. On 08/01/2021 patient was seen and examined on the medical floor she is alert and oriented in no apparent distress yesterday patient was having severe generalized pain, today she seems more calm and oriented, she was complaining of pain in the hips area, x-ray of bilateral hips was ordered, otherwise patient is denying any complaints at this time there is no fever or chills no headache or dizziness no chest pain no shortness of breath no cough no nausea or vomiting no abdominal pain no diarrhea and no urinary symptoms Objective - Vital Signs Vital signs: Vital Signs Temp 98.3 F 08/01/21 07:38 Pulse 72 08/01/21 07:38 Resp 18 08/01/21 07:38 BP 166/66 08/01/21 07:38 Pulse Ox 97 08/01/21 07:38 Intake & Output 07/31/21 08/01/21 08/01/21 18:59 06:59 18:59 Intake Total 160 90 Output Total 350 300 Balance -190 -300 90 Intake: Oral 160 90 Output: Urine 350 300 Other: Voiding Method Indwelling Catheter Indwelling Catheter Indwelling Catheter - Exam In general patient is alert and oriented x 3 in no distress HEENT head normocephalic and atraumatic Neck is supple no JVD no goiter no lymphadenopathy no carotid bruit Chest examination is clear to auscultation no crackles no wheezing Cardiac exam reveals regular heart sounds S1 and S2 no gallops no murmurs Abdomen is soft nontender no organomegaly with normal bowel sounds Extremity exam reveals no edema no cyanosis or clubbing Neurological examination reveals no gross focal deficits - Labs CBC & Chem 7: 08/01/21 07:08 08/01/21 07:08 Labs: Abnormal Lab Results - Last 24 Hours (Table) 07/31/21 07/31/21 08/01/21 Range/Units 17:48 20:31 07:08 RBC 2.80 L (4.10-5.20) X 10*6/uL Hgb 8.2 L (12.0-15.0) g/dL Hct 28.1 L (37.2-46.3) % MCV 100.4 H (80.0-97.0) fL MCHC 29.2 L (32.0-37.0) g/dL RDW 18.5 H (11.5-14.5) % Immature Gran # 0.09 H (0.00-0.04) X 10*3/uL Eosinophils # 0 L (0.04-0.35) X 10*3/uL PT (9.9-11.9) sec INR (0.90-1.11) Anion Gap (10.00-18.00) mmol/L BUN (9.0-27.0) mg/dL Est GFR (CKD-EPI)AfAm (60.0-200.0) Est GFR (CKD-EPI)NonAf (60.0-200.0) BUN/Creatinine Ratio (12.00-20.00) Ratio Glucose (70-110) mg/dL POC Glucose (mg/dL) 102 H 118 H (75-99) mg/dL Calcium (8.7-10.3) mg/dL Total Bilirubin (0.30-1.20) mg/dL Total Protein (6.2-8.2) g/dL Albumin (3.8-4.9) g/dL Albumin/Globulin Ratio (1.60-3.17) g/dL 08/01/21 08/01/21 08/01/21 Range/Units 07:08 07:08 07:41 RBC (4.10-5.20) X 10*6/uL Hgb (12.0-15.0) g/dL Hct (37.2-46.3) % MCV (80.0-97.0) fL MCHC (32.0-37.0) g/dL RDW (11.5-14.5) % Immature Gran # (0.00-0.04) X 10*3/uL Eosinophils # (0.04-0.35) X 10*3/uL PT 20.6 H (9.9-11.9) sec INR 1.88 H (0.90-1.11) Anion Gap 9.90 L (10.00-18.00) mmol/L BUN 35.1 H (9.0-27.0) mg/dL Est GFR (CKD-EPI)AfAm 54.1 L (60.0-200.0) Est GFR (CKD-EPI)NonAf 46.7 L (60.0-200.0) BUN/Creatinine Ratio 31.91 H (12.00-20.00) Ratio Glucose 143 H (70-110) mg/dL POC Glucose (mg/dL) 149 H (75-99) mg/dL Calcium 11.3 H (8.7-10.3) mg/dL Total Bilirubin 0.20 L (0.30-1.20) mg/dL Total Protein 6.0 L (6.2-8.2) g/dL Albumin 2.7 L (3.8-4.9) g/dL Albumin/Globulin Ratio 0.82 L (1.60-3.17) g/dL 08/01/21 Range/Units 12:07 RBC (4.10-5.20) X 10*6/uL Hgb (12.0-15.0) g/dL Hct (37.2-46.3) % MCV (80.0-97.0) fL MCHC (32.0-37.0) g/dL RDW (11.5-14.5) % Immature Gran # (0.00-0.04) X 10*3/uL Eosinophils # (0.04-0.35) X 10*3/uL PT (9.9-11.9) sec INR (0.90-1.11) Anion Gap (10.00-18.00) mmol/L BUN (9.0-27.0) mg/dL Est GFR (CKD-EPI)AfAm (60.0-200.0) Est GFR (CKD-EPI)NonAf (60.0-200.0) BUN/Creatinine Ratio (12.00-20.00) Ratio Glucose (70-110) mg/dL POC Glucose (mg/dL) 207 H (75-99) mg/dL Calcium (8.7-10.3) mg/dL Total Bilirubin (0.30-1.20) mg/dL Total Protein (6.2-8.2) g/dL Albumin (3.8-4.9) g/dL Albumin/Globulin Ratio (1.60-3.17) g/dL Microbiology - Last 24 Hours (Table) 07/30/21 16:45 Blood Culture Gram Stain - Preliminary Blood Blood Culture - Preliminary Alpha Hemolytic Streptococcus 07/30/21 17:00 Blood Culture - Preliminary Blood No Growth after 24 hours 07/30/21 16:45 Blood Culture - Final Blood 07/30/21 20:28 Urine Culture - Preliminary Urine,Voided Assessment and Plan Assessment: 1. Altered mental status likely secondary from urinary tract infection 2. Urinary tract infection with elevated temperature and white blood cell count 3. History of atrial fibrillation maintained on Coumadin. Coumadin resumed. INR ordered 4. History of CVA 5. History of recent COVID-19 infection 6. History of hyperlipidemia 7. History of diabetes mellitus type 2 8. History of essential hypertension DVT prophylaxis Coumadin. GI prophylaxis Protonix Patient started on IV antibiotics Urine and blood cultures ordered Repeat labs ordered PT OT and social work services consulted Plan: 1. Altered mental status likely secondary from urinary tract infection 2. Urinary tract infection with elevated temperature and white blood cell cou nt, patient has evidence of sepsis with positive blood cultures for alpha hemolytic streptococcus, dose of Rocephin was increased to 2 g every 24 hours 3. History of atrial fibrillation maintained on Coumadin. Coumadin resumed. INR ordered 4. History of CVA 5. History of recent COVID-19 infection 6. History of hyperlipidemia 7. History of diabetes mellitus type 2 8. History of essential hypertension 9. Hip pain Xray of bilateral hips done, no clear evidence of fracture, will consult ortho 10. Foot ulcer, wound care consult requested DVT prophylaxis Coumadin. GI prophylaxis Protonix Patient started on IV antibiotics Urine and blood cultures ordered Repeat labs ordered PT OT and social work services consulted
[2021-08-01 20:39] LABS: Glucose,Whole Blood 177 mg/dL (75-99)
[2021-08-01] MEDS: ATORVASTATIN 10 MG TAB PO SCH (21:14)
[2021-08-01] MEDS: MONTELUKAST 10 MG TAB PO SCH (21:14)
[2021-08-01] MEDS: MAGNESIUM OXIDE 400 MG TAB PO SCH (21:14)
--- NOTE | 2021-08-01 23:28 | P.CONS ---
History of Present Illness - Reason for Consult Consult date: 08/01/21 Bacteremia Requesting physician: Tori Barney - Chief Complaint Mental status changes 1 day - History of Present Illness Patient is 81-year female was brought into the ER 2 days ago by son who is a caregiver concerning for patient complaining of pain mostly in the right lower extremity no clear history of any trauma or fall and the patient was noticed to have some mental status changes was also concern for a fever at home of 102 degrees for right, with these symptoms the patient has been evaluated by the ER physician, on arrival to the ER did have a low-grade fever subsequently spiked a fever of 102 F patient is breathing comfortably on room air patient did have white count of 14.3 with a left shift on admission did have elevated BUN and creatinine and liver enzymes were normal patient did have a positive UA with urine now showing gram-negative bacilli, blood culture growing alphahemolytic Streptococcus that has prompted this infectious disease con sultation patient did have a CT of the brain that was negative for any bleed x- rays of the hip and pelvic area, did shows arthropathy correlate for fibular acetabular impingement, patient overall not a very good historian however no specifically denies having any chest pain no shortness with cough no abdominal pain complaining of pain to the leg but unable to quantify it any further currently did not have any open wound to lower extremity did have a small stage II pressure ulcer to sacral area with no drainage Review of Systems Positive point has been mentioned in the HPI rest of the systems are negative Past Medical History Past Medical History: Atrial Fibrillation, Asthma, Heart Failure, CVA/TIA, Diabetes Mellitus, Hyperlipidemia, Hypertension, Osteoarthritis (OA), Pneumonia Additional Past Medical History / Comment(s): Pt was recently hospitalized at [facility] on 06/04/21 with UTI, bilateral multiple kidney stones and covid. Other hx:Covid + recently, but son states pt had been moved out of [facility]'s covid unit prior to her discharge from there yesterday. Other hx: Current R heel wound, document states buttock decub, CVAs-son states no deficits, bradycardia with pacemaker, pulmonary hypertension, NIDDM type II, multiple UTIs History of Any Multi-Drug Resistant Organisms: None Reported Past Surgical History: Appendectomy, Cholecystectomy, Orthopedic Surgery, Pacemaker, Tonsillectomy Additional Past Surgical History / Comment(s): Bilateral total knee replacements, bilateral carpal tunnel releases, colonoscopy, pacer placed at [facility]/date unknown Past Anesthesia/Blood Transfusion Reactions: No Reported Reaction Type of Cardiac Device: Permanent Pacemaker Device Placement Date:: cannot recall Smoking Status: Former smoker - Past Family History Son(s) Family Medical History: Myocardial Infarction ([place]) Additional Family Medical History / Comment(s): Son had a [place] at the age of 47 yrs. Mother Family Medical History: Cancer Father Family Medical History: Cancer Medications and Allergies Home Medications Medication Instructions Recorded Confirmed Type Atorvastatin [Lipitor] 10 mg PO HS tab 05/11/17 07/30/21 Rx Montelukast [Singulair] 10 mg PO HS #30 tab 02/03/19 07/30/21 Rx Acetaminophen Tab [Tylenol] 500 mg PO Q6H PRN 06/15/21 07/30/21 History Calcium Carbonate [Calcium] 600 mg PO DAILY 06/15/21 07/30/21 History Cholecalciferol [Vitamin D3 (125 125 mcg PO DAILY 06/15/21 07/30/21 History Mcg = 5000 Iu)] Cranberry 4200 Mg 4,200 mg PO DAILY 06/15/21 07/30/21 History Cyanocobalamin [Vitamin B-12] 500 - 1,000 mcg PO DAILY 06/15/21 07/30/21 History Ferrous Sulfate [Iron (65 MG 325 mg PO BID 06/15/21 07/30/21 History Elemental)] Magnesium 250 mg PO HS 06/15/21 07/30/21 History Vitamin E (Dl,Tocopheryl Acet) 400 unit PO DAILY 06/15/21 07/30/21 History [Vitamin E (400 Iu = 180 mg)] glipiZIDE [Glucotrol] 10 mg PO AC-BID 06/15/21 07/30/21 History metFORMIN HCL 500 mg PO TID 06/15/21 07/30/21 History carvediloL [Coreg] 6.25 mg PO AC-BID tab 06/22/21 07/30/21 Rx Warfarin [Coumadin] 2 mg PO HS 07/30/21 07/30/21 History Allergies Allergy/AdvReac Type Severity Reaction Status Date / Time influenza virus vaccine qs Allergy Unknown Unknown Verified 07/30/21 17:22 2016- (36 months up) [From Fluarix Quad 4337-6807 (PF)] aspirin Allergy Unknown Verified 07/30/21 17:22 egg Allergy Diarrhea Verified 07/30/21 17:22 Penicillins Allergy Rash/Hives Verified 07/30/21 17:22 radish Allergy Rash/Hives Verified 07/30/21 17:22 red dye Allergy Unknown Verified 07/30/21 17:22 Physical Exam Vitals: Vital Signs Temp Pulse Resp BP Pulse Ox 08/01/21 15:00 98.0 F 72 16 169/60 97 08/01/21 07:38 98.3 F 72 18 166/66 97 08/01/21 00:56 99.1 F 70 16 158/67 98 07/31/21 19:25 97.5 F L 67 16 161/68 98 Intake and Output 08/01/21 08/01/21 08/01/21 06:59 14:59 22:59 Intake Total 1180 Output Total 200 Balance -200 1180 Intake: Intake, IV Titration 1000 Amount Sodium Chloride 0.9% 1, 1000 000 ml @ 75 mls/hr IV . [id number] [facility] Rx#:[id number] Oral 180 Output: Urine 200 Other: Voiding Method Indwelling Catheter Weight 72.575 kg GENERAL DESCRIPTION: An elderly female lying in bed, no distress. No tachypnea or accessory muscle of respiration use. HEENT: Shows Pallor , no scleral icterus. Oral mucous membrane is dry. No pharyngeal erythema or thrush NECK: Trachea central, no thyromegaly. LUNGS: Unlabored breathing. Clear to auscultation anteriorly. No wheeze or crackle. HEART: S1, S2, regular rate and rhythm. No loud murmur ABDOMEN: Soft, no tenderness , guarding or rigidity, no organomegaly EXTREMITIES: No edema of feet. SKIN: No rash, no masses palpable. Stage II sacral pressure ulcer with cellulitis NEUROLOGICAL: The patient is awake, alert, oriented x2, mood and affect normal. Results CBC & Chem 7: 08/01/21 07:08 08/01/21 07:08 Labs: Abnormal Lab Results - Last 24 Hours (Table) 07/31/21 07/31/21 08/01/21 Range/Units 17:48 20:31 07:08 RBC 2.80 L (4.10-5.20) X 10*6/uL Hgb 8.2 L (12.0-15.0) g/dL Hct 28.1 L (37.2-46.3) % MCV 100.4 H (80.0-97.0) fL MCHC 29.2 L (32.0-37.0) g/dL RDW 18.5 H (11.5-14.5) % Immature Gran # 0.09 H (0.00-0.04) X 10*3/uL Eosinophils # 0 L (0.04-0.35) X 10*3/uL PT (9.9-11.9) sec INR (0.90-1.11) Anion Gap (10.00-18.00) mmol/L BUN (9.0-27.0) mg/dL Est GFR (CKD-EPI)AfAm (60.0-200.0) Est GFR (CKD-EPI)NonAf (60.0-200.0) BUN/Creatinine Ratio (12.00-20.00) Ratio Glucose (70-110) mg/dL POC Glucose (mg/dL) 102 H 118 H (75-99) mg/dL Calcium (8.7-10.3) mg/dL Total Bilirubin (0.30-1.20) mg/dL Total Protein (6.2-8.2) g/dL Albumin (3.8-4.9) g/dL Albumin/Globulin Ratio (1.60-3.17) g/dL 08/01/21 08/01/21 08/01/21 Range/Units 07:08 07:08 07:41 RBC (4.10-5.20) X 10*6/uL Hgb (12.0-15.0) g/dL Hct (37.2-46.3) % MCV (80.0-97.0) fL MCHC (32.0-37.0) g/dL RDW (11.5-14.5) % Immature Gran # (0.00-0.04) X 10*3/uL Eosinophils # (0.04-0.35) X 10*3/uL PT 20.6 H (9.9-11.9) sec INR 1.88 H (0.90-1.11) Anion Gap 9.90 L (10.00-18.00) mmol/L BUN 35.1 H (9.0-27.0) mg/dL Est GFR (CKD-EPI)AfAm 54.1 L (60.0-200.0) Est GFR (CKD-EPI)NonAf 46.7 L (60.0-200.0) BUN/Creatinine Ratio 31.91 H (12.00-20.00) Ratio Glucose 143 H (70-110) mg/dL POC Glucose (mg/dL) 149 H (75-99) mg/dL Calcium 11.3 H (8.7-10.3) mg/dL Total Bilirubin 0.20 L (0.30-1.20) mg/dL Total Protein 6.0 L (6.2-8.2) g/dL Albumin 2.7 L (3.8-4.9) g/dL Albumin/Globulin Ratio 0.82 L (1.60-3.17) g/dL 08/01/21 Range/Units 12:07 RBC (4.10-5.20) X 10*6/uL Hgb (12.0-15.0) g/dL Hct (37.2-46.3) % MCV (80.0-97.0) fL MCHC (32.0-37.0) g/dL RDW (11.5-14.5) % Immature Gran # (0.00-0.04) X 10*3/uL Eosinophils # (0.04-0.35) X 10*3/uL PT (9.9-11.9) sec INR (0.90-1.11) Anion Gap (10.00-18.00) mmol/L BUN (9.0-27.0) mg/dL Est GFR (CKD-EPI)AfAm (60.0-200.0) Est GFR (CKD-EPI)NonAf (60.0-200.0) BUN/Creatinine Ratio (12.00-20.00) Ratio Glucose (70-110) mg/dL POC Glucose (mg/dL) 207 H (75-99) mg/dL Calcium (8.7-10.3) mg/dL Total Bilirubin (0.30-1.20) mg/dL Total Protein (6.2-8.2) g/dL Albumin (3.8-4.9) g/dL Albumin/Globulin Ratio (1.60-3.17) g/dL Microbiology - Last 24 Hours (Table) 07/30/21 20:28 Urine Culture - Preliminary Urine,Voided Gram Neg Bacilli 07/30/21 16:45 Blood Culture Gram Stain - Preliminary Blood Blood Culture - Preliminary Alpha Hemolytic Streptococcus 07/30/21 17:00 Blood Culture - Preliminary Blood No Growth after 24 hours Assessment and Plan (1) UTI (urinary tract infection) Current Visit: Yes Status: Acute Code(s): N39.0 - URINARY TRACT INFECTION, SITE NOT SPECIFIED SNOMED Code(s): 71824576 Plan: 1patient with positive blood culture with alphahemolytic Streptococcus could be likely a skin contaminant as the patient neglected to follow-up with blood cultures will be repeated document clearance of bacteremia 2-patient did have a fever or more likely a UTI with urine currently showing a gram-negative ID and sensitivities pending 3-stage II sacral pressure ulcer no cellulitis 4-continue the patient Rocephin 2 g daily 5-blood cultures will be repeated document clearance of bacteremia 6-skin protective cream to the sacral area and keep the area of the pressure We will follow on clinical condition and cultures to further adjust medication if needed Thank you for this consultation we will follow the patient along with you Time with Patient: Greater than 30
[2021-08-02] MEDS: HYDROmorphone 0.5 MG/0.5 ML SYRINGE IVP PRN ×3 (01:24→18:43)
[2021-08-02] MEDS: SODIUM CHLORIDE 0.9% 1,000 ML IV SCH ×2 (03:33→17:51)
[2021-08-02 07:46] LABS: Glucose,Whole Blood 133 mg/dL (75-99)
[2021-08-02] MEDS: FERROUS SULFATE 325 MG TAB PO SCH ×2 (08:23→22:07)
[2021-08-02] MEDS: CHOLECALCIFEROL 125 MCG (5000 IU) TABLET PO SCH (08:23)
[2021-08-02] MEDS: PANTOPRAZOLE 40 MG TABLET PO SCH (08:24)
[2021-08-02] MEDS: CYANOCOBALAMIN 500 MCG TAB PO SCH (08:24)
[2021-08-02] MEDS: CALCIUM CARBONATE 500 MG CHEWABLE PO SCH (08:25)
[2021-08-02] MEDS: carvediloL 6.25 MG TAB PO SCH ×2 (08:27→18:31)
[2021-08-02] MEDS: VITAMIN E (DL,TOCOPHERYL ACET) 400 UNIT (180 MG) CAP PO SCH (08:28)
[2021-08-02] MEDS: INSULIN ASPART (NovoLOG) 100 UNIT/ML VIAL SQ SCH ×5 (08:28→22:15)
[2021-08-02 09:45] LABS: INR 1.64 (0.90-1.11); Prothrombin Time 18.1 sec (9.9-11.9)
--- NOTE | 2021-08-02 10:45 | P.CNOR ---
History of Present Illness - HPI Consult date: 08/02/21 History of present illness: This is an 81 year old female who is admitted for UTI and delirium. Orthopedics is consulted due to right hip pain. Patient is seen and evaluated at bedside today. Patient is confused and a poor historian. There is no family present at bedside today. There is no reported injury. Patient's past medical history is significant for kidney stones, atrial fibrillation, asthma, heart failure, CVA/TIA, diabetes mellitus, hyperlipidemia, hypertension and osteoarthritis. Patient was recently discharged from [facility] and was there after a COVID-19 infection. Review of Systems ROS unobtainable: due to mental status Past Medical History Past Medical History: Atrial Fibrillation, Asthma, Heart Failure, CVA/TIA, Diabetes Mellitus, Hyperlipidemia, Hypertension, Osteoarthritis (OA), Pneumonia Additional Past Medical History / Comment(s): Pt was recently hospitalized at [facility] on 06/04/21 with UTI, bilateral multiple kidney stones and covid. Other hx:Covid + recently, but son states pt had been moved out of [facility]'s covid unit prior to her discharge from there yesterday. Other hx: Current R heel wound, document states buttock decub, CVAs-son states no deficits, bradycardia with pacemaker, pulmonary hypertension, NIDDM type II, multiple UTIs History of Any Multi-Drug Resistant Organisms: None Reported Past Surgical History: Appendectomy, Cholecystectomy, Orthopedic Surgery, Pacemaker, Tonsillectomy Additional Past Surgical History / Comment(s): Bilateral total knee replacements, bilateral carpal tunnel releases, colonoscopy, pacer placed at [facility]/date unknown Past Anesthesia/Blood Transfusion Reactions: No Reported Reaction Type of Cardiac Device: Permanent Pacemaker Device Placement Date:: cannot recall Smoking Status: Former smoker - Past Family History Son(s) Family Medical History: Myocardial Infarction (SC) Additional Family Medical History / Comment(s): Son had a SC at the age of 47 yrs. Mother Family Medical History: Cancer Father Family Medical History: Cancer Medications and Allergies Home Medications Medication Instructions Recorded Confirmed Type Atorvastatin [Lipitor] 10 mg PO HS tab 05/11/17 07/30/21 Rx Montelukast [Singulair] 10 mg PO HS #30 tab 02/03/19 07/30/21 Rx Acetaminophen Tab [Tylenol] 500 mg PO Q6H PRN 06/15/21 07/30/21 History Calcium Carbonate [Calcium] 600 mg PO DAILY 06/15/21 07/30/21 History Cholecalciferol [Vitamin D3 (125 125 mcg PO DAILY 06/15/21 07/30/21 History Mcg = 5000 Iu)] Cranberry 4200 Mg 4,200 mg PO DAILY 06/15/21 07/30/21 History Cyanocobalamin [Vitamin B-12] 500 - 1,000 mcg PO DAILY 06/15/21 07/30/21 History Ferrous Sulfate [Iron (65 MG 325 mg PO BID 06/15/21 07/30/21 History Elemental)] Magnesium 250 mg PO HS 06/15/21 07/30/21 History Vitamin E (Dl,Tocopheryl Acet) 400 unit PO DAILY 06/15/21 07/30/21 History [Vitamin E (400 Iu = 180 mg)] glipiZIDE [Glucotrol] 10 mg PO AC-BID 06/15/21 07/30/21 History metFORMIN HCL 500 mg PO TID 06/15/21 07/30/21 History carvediloL [Coreg] 6.25 mg PO AC-BID tab 06/22/21 07/30/21 Rx Warfarin [Coumadin] 2 mg PO HS 07/30/21 07/30/21 History Allergies Allergy/AdvReac Type Severity Reaction Status Date / Time influenza virus vaccine qs Allergy Unknown Unknown Verified 07/30/21 17:22 2017-18 (36 months up) [From Fluarix Quad 1912-1900 (PF)] aspirin Allergy Unknown Verified 07/30/21 17:22 egg Allergy Diarrhea Verified 07/30/21 17:22 Penicillins Allergy Rash/Hives Verified 07/30/21 17:22 radish Allergy Rash/Hives Verified 07/30/21 17:22 red dye Allergy Unknown Verified 07/30/21 17:22 Physical Examination On exam patient is lying comfortably in bed in no acute distress. Patient is confused. There is pain with any attempted passive motion of the right lower extremity. There is a scar from a previous incision over the anterior aspect of the right knee. Skin is intact. There is no swelling, erythema or ecchymosis. Calf is soft and nontender to palpation. Right lower extremity is warm and well perfused. Results X-rays of bilateral hips and pelvis dated 08/01/2021 are reviewed and report reveals: 1. Arthropathy correlate for femoral acetabular impingement. 2. There is a linear band of sclerosis involving the right femoral neck. CT scan of the pelvis is recommended. - Labs Labs: Abnormal Lab Results - Last 24 Hours (Table) 08/01/21 08/01/21 08/01/21 Range/Units 07:08 07:08 07:08 RBC 2.80 L (4.10-5.20) X 10*6/uL Hgb 8.2 L (12.0-15.0) g/dL Hct 28.1 L (37.2-46.3) % MCV 100.4 H (80.0-97.0) fL MCHC 29.2 L (32.0-37.0) g/dL RDW 18.5 H (11.5-14.5) % Immature Gran # 0.09 H (0.00-0.04) X 10*3/uL Eosinophils # 0 L (0.04-0.35) X 10*3/uL ESR (0-30) mm/Hr PT 20.6 H (9.9-11.9) sec INR 1.88 H (0.90-1.11) Anion Gap 9.90 L (10.00-18.00) mmol/L BUN 35.1 H (9.0-27.0) mg/dL Est GFR (CKD-EPI)AfAm 54.1 L (60.0-200.0) Est GFR (CKD-EPI)NonAf 46.7 L (60.0-200.0) BUN/Creatinine Ratio 31.91 H (12.00-20.00) Ratio Glucose 143 H (70-110) mg/dL POC Glucose (mg/dL) (75-99) mg/dL Calcium 11.3 H (8.7-10.3) mg/dL Total Bilirubin 0.20 L (0.30-1.20) mg/dL C-Reactive Protein (0.00-0.80) mg/dL Total Protein 6.0 L (6.2-8.2) g/dL Albumin 2.7 L (3.8-4.9) g/dL Albumin/Globulin Ratio 0.82 L (1.60-3.17) g/dL 08/01/21 08/01/21 08/01/21 Range/Units 12:07 17:23 20:37 RBC (4.10-5.20) X 10*6/uL Hgb (12.0-15.0) g/dL Hct (37.2-46.3) % MCV (80.0-97.0) fL MCHC (32.0-37.0) g/dL RDW (11.5-14.5) % Immature Gran # (0.00-0.04) X 10*3/uL Eosinophils # (0.04-0.35) X 10*3/uL ESR (0-30) mm/Hr PT (9.9-11.9) sec INR (0.90-1.11) Anion Gap (10.00-18.00) mmol/L BUN (9.0-27.0) mg/dL Est GFR (CKD-EPI)AfAm (60.0-200.0) Est GFR (CKD-EPI)NonAf (60.0-200.0) BUN/Creatinine Ratio (12.00-20.00) Ratio Glucose (70-110) mg/dL POC Glucose (mg/dL) 207 H 141 H 177 H (75-99) mg/dL Calcium (8.7-10.3) mg/dL Total Bilirubin (0.30-1.20) mg/dL C-Reactive Protein (0.00-0.80) mg/dL Total Protein (6.2-8.2) g/dL Albumin (3.8-4.9) g/dL Albumin/Globulin Ratio (1.60-3.17) g/dL 08/02/21 08/02/21 08/02/21 Range/Units 06:08 06:08 06:08 RBC (4.10-5.20) X 10*6/uL Hgb (12.0-15.0) g/dL Hct (37.2-46.3) % MCV (80.0-97.0) fL MCHC (32.0-37.0) g/dL RDW (11.5-14.5) % Immature Gran # (0.00-0.04) X 10*3/uL Eosinophils # (0.04-0.35) X 10*3/uL ESR 44 H (0-30) mm/Hr PT 18.1 H (9.9-11.9) sec INR 1.64 H (0.90-1.11) Anion Gap (10.00-18.00) mmol/L BUN (9.0-27.0) mg/dL Est GFR (CKD-EPI)AfAm (60.0-200.0) Est GFR (CKD-EPI)NonAf (60.0-200.0) BUN/Creatinine Ratio (12.00-20.00) Ratio Glucose (70-110) mg/dL POC Glucose (mg/dL) (75-99) mg/dL Calcium (8.7-10.3) mg/dL Total Bilirubin (0.30-1.20) mg/dL C-Reactive Protein 3.10 H (0.00-0.80) mg/dL Total Protein (6.2-8.2) g/dL Albumin (3.8-4.9) g/dL Albumin/Globulin Ratio (1.60-3.17) g/dL 08/02/21 Range/Units 07:44 RBC (4.10-5.20) X 10*6/uL Hgb (12.0-15.0) g/dL Hct (37.2-46.3) % MCV (80.0-97.0) fL MCHC (32.0-37.0) g/dL RDW (11.5-14.5) % Immature Gran # (0.00-0.04) X 10*3/uL Eosinophils # (0.04-0.35) X 10*3/uL ESR (0-30) mm/Hr PT (9.9-11.9) sec INR (0.90-1.11) Anion Gap (10.00-18.00) mmol/L BUN (9.0-27.0) mg/dL Est GFR (CKD-EPI)AfAm (60.0-200.0) Est GFR (CKD-EPI)NonAf (60.0-200.0) BUN/Creatinine Ratio (12.00-20.00) Ratio Glucose (70-110) mg/dL POC Glucose (mg/dL) 133 H (75-99) mg/dL Calcium (8.7-10.3) mg/dL Total Bilirubin (0.30-1.20) mg/dL C-Reactive Protein (0.00-0.80) mg/dL Total Protein (6.2-8.2) g/dL Albumin (3.8-4.9) g/dL Albumin/Globulin Ratio (1.60-3.17) g/dL Microbiology - Last 24 Hours (Table) 07/30/21 20:28 Urine Culture - Final Urine,Voided Klebsiella pneumoniae 07/30/21 17:00 Blood Culture - Preliminary Blood No Growth after 48 hours 07/30/21 16:45 Blood Culture Gram Stain - Preliminary Blood Blood Culture - Preliminary Alpha Hemolytic Streptococcus H & H 07/30/21 07/31/21 08/01/21 Range/Units 17:02 09:55 07:08 Hgb 9.6 L D 9.5 L 8.2 L (11.4-16.0) gm/dL Hct 31.1 L 30.6 L 28.1 L (34.0-46.0) % Coagulation 07/30/21 07/31/21 08/01/21 Range/Units 17:02 09:55 07:08 INR 2.1 H 2.1 H 1.88 H (<1.2) 08/02/21 Range/Units 06:08 INR 1.64 H (<1.2) Result Diagrams: 08/01/21 07:08 08/01/21 07:08 Assessment and Plan (1) Right leg pain Current Visit: Yes Status: Acute Code(s): M79.604 - PAIN IN RIGHT LEG SNOMED Code(s): 323805064 (2) Acute delirium Current Visit: Yes Status: Acute Code(s): R41.0 - DISORIENTATION, UNSPECIFIED SNOMED Code(s): 3320103 (3) UTI (urinary tract infection) Current Visit: Yes Status: Acute Code(s): N39.0 - URINARY TRACT INFECTION, SITE NOT SPECIFIED SNOMED Code(s): 32395218 Plan: A CT of the pelvis is ordered. Further recommendations pending CT results.
--- NOTE | 2021-08-02 12:11 | CT ---
EXAMINATION TYPE: CT pelvis wo con DATE OF EXAM: 08/02/2021 COMPARISON: X-ray dated 08/01/[address] dated 05/24/2021 HISTORY: bilateral hip pain CT DLP: 353.5 mGycm Automated exposure control for dose reduction was used. TECHNIQUE: Multiplanar CT scan of the pelvis without IV contrast administration. FINDINGS: Diffuse osteopenia. Degenerative changes of the hip joints with tiny osteophytosis and narrowing of t he joint spaces. Degenerative changes of the symphysis pubis with adjacent sclerotic changes, subtle insufficiency fracture at that location can't be excluded. No definitive hip or pelvic bone fracture identified otherwise. No femoral head dislocation or subluxation. Mild degenerative changes of the sacroiliac joints. L5-S1 facet osteoarthropathy. The urinary bladder is collapsed over Loera catheter. Suspected left uterine fibroid measuring 3.4 cm, please correlate with the elective pelvic ultrasound results. Arterial atherosclerotic calcifications. Scattered uncom plicated colonic diverticulosis. Left lateral gluteal subcutaneous fat stranding and reactive fluid extending inferiorly along the pos terior aspect of the left upper thigh, and overlying the left femoral greater trochanter and ischial tuberosity, please correlate clinically for underlying acute inflammatory/infectious process. IMPRESSION: NO DEFINITE ACUTE HIP JOINT FRACTURE IDENTIFIED. DEGENERATIVE CHANGES OF THE SYMPHYSIS PUBIS WITH QUE STIONABLE SUBTLE INSUFFICIENCY FRACTURE AT THAT LOCATION, FURTHER BONE SCAN ASSESSMENT CAN BE CONSIDE RED. NO OTHER DEFINITE FRACTURE LINE IDENTIFIED. SUSPECTED ACUTE INFLAMMATORY/INFECTIOUS PROCESS ALONG THE SOFT TISSUE OF THE LEFT GLUTEAL/BACK OF THE LEFT UPPER THIGH, PLEASE CORRELATE CLINICALLY. OTHER INCIDENTAL FINDINGS DESCRIBED ABOVE.
[2021-08-02 12:18] LABS: Glucose,Whole Blood 170 mg/dL (75-99)
[2021-08-02 17:25] LABS: Glucose,Whole Blood 120 mg/dL (75-99)
[2021-08-02] MEDS ORDERED: WARFARIN 3 MG TAB PO ONE (18:00)
[2021-08-02 19:50] LABS: Glucose,Whole Blood 149 mg/dL (75-99)
--- NOTE | 2021-08-02 20:42 | US ---
EXAMINATION TYPE: US kidneys/renal and bladder DATE OF EXAM: 08/02/2021 COMPARISON: 06/19/21 Renal CLINICAL HISTORY: kidney stones, uti. Uti EXAM MEASUREMENTS: Right Kidney: 11.0 x 4.8 x 5.9 cm Left Kidney: 9.9 x 5.1 x 4.6 cm Right Kidney: Limited visualization; no hydronephrosis or masses seen Left Kidney: Limited visualization Bladder: Patient has mcdaniels cath; unable to visualize due to patient laying on left side. Very difficult exam due to patient immobility. Patient has altered mental status and was not cooperat hector during today's exam. IMPRESSION: 1. Limited exam. 2. No evidence of right hydronephrosis. 3. Left kidney not fully visualized.
[2021-08-02] MEDS: MAGNESIUM OXIDE 400 MG TAB PO SCH (22:06)
[2021-08-02] MEDS: ATORVASTATIN 10 MG TAB PO SCH (22:06)
[2021-08-02] MEDS: MONTELUKAST 10 MG TAB PO SCH (22:07)
--- NOTE | 2021-08-02 23:02 | P.PN ---
Subjective Progress Note Date: 08/02/21 Principal diagnosis: Bacteremia and urinary tract infection Patient is a 81-year-old female presented to the hospital mental status changes and this patient did have evidence of urinary tract infection and a positive blood culture with alpha hemolytic Streptococcus. On today's evaluation that is 08/02/2021, the patient is afebrile patient is slightly lethargic, breathing comfortably on room air no vomiting or diarrhea has been reported by the nursing staff Objective - Vital Signs Vital signs: Vital Signs Temp 97.7 F 08/02/21 08:00 Pulse 72 08/02/21 08:00 Resp 18 08/02/21 08:00 BP 147/61 08/02/21 08:00 Pulse Ox 100 08/02/21 08:00 Intake & Output 08/01/21 08/02/21 08/02/21 18:59 06:59 18:59 Intake Total 1270 177 Output Total 300 250 Balance 970 -250 177 Weight 72.575 kg Intake: Intake, IV Titration 1000 Amount Sodium Chloride 0.9% 1, 1000 000 ml @ 75 mls/hr IV . [id number] [facility] Rx#:[id number] Oral 270 177 Output: Urine 300 250 Other: Voiding Method Indwelling Catheter Indwelling Catheter Indwelling Catheter - Exam GENERAL DESCRIPTION: An elderly female lying in bed in no distress RESPIRATORY SYSTEM: Unlabored breathing , decreased breath sounds at bases HEART: S1 S2 regular rate and rhythm , ABDOMEN: Soft , no tenderness EXTREMITIES: No edema feet - Labs CBC & Chem 7: 08/01/21 07:08 08/01/21 07:08 Labs: Abnormal Lab Results - Last 24 Hours (Table) 08/01/21 08/01/21 08/01/21 Range/Units 07:08 12:07 17:23 ESR (0-30) mm/Hr PT 20.6 H (9.9-11.9) sec INR 1.88 H (0.90-1.11) POC Glucose (mg/dL) 207 H 141 H (75-99) mg/dL C-Reactive Protein (0.00-0.80) mg/dL 08/01/21 08/02/21 08/02/21 Range/Units 20:37 06:08 06:08 ESR 44 H (0-30) mm/Hr PT 18.1 H (9.9-11.9) sec INR 1.64 H (0.90-1.11) POC Glucose (mg/dL) 177 H (75-99) mg/dL C-Reactive Protein (0.00-0.80) mg/dL 08/02/21 08/02/21 Range/Units 06:08 07:44 ESR (0-30) mm/Hr PT (9.9-11.9) sec INR (0.90-1.11) POC Glucose (mg/dL) 133 H (75-99) mg/dL C-Reactive Protein 3.10 H (0.00-0.80) mg/dL Microbiology - Last 24 Hours (Table) 07/30/21 20:28 Urine Culture - Final Urine,Voided Klebsiella pneumoniae 07/30/21 17:00 Blood Culture - Preliminary Blood No Growth after 48 hours 07/30/21 16:45 Blood Culture Gram Stain - Preliminary Blood Blood Culture - Preliminary Alpha Hemolytic Streptococcus Assessment and Plan (1) UTI (urinary tract infection) Current Visit: Yes Status: Acute Code(s): N39.0 - URINARY TRACT INFECTION, SITE NOT SPECIFIED SNOMED Code(s): 51901709 Plan: 1patient with positive blood culture with alphahemolytic Streptococcus could be likely a skin contaminant , blood cultures will be repeated document clearance of bacteremia 2-patient did have a fever or more likely a UTI with urine currently showing a gram-negative ID and sensitivities pending 3-stage II sacral pressure ulcer no cellulitis 4-pt to continue the patient Rocephin 2 g daily 5-blood cultures will be repeated document clearance of bacteremia 6-skin protective cream to the sacral area and keep the area of the pressure Time with Patient: Less than 30
[2021-08-03] MEDS: HYDROmorphone 0.5 MG/0.5 ML SYRINGE IVP PRN ×4 (00:44→23:47)
[2021-08-03] MEDS: SODIUM CHLORIDE 0.9% 1,000 ML IV SCH ×2 (04:15→14:49)
[2021-08-03 08:16] LABS: Glucose,Whole Blood 145 mg/dL (75-99)
[2021-08-03] MEDS: FERROUS SULFATE 325 MG TAB PO SCH ×2 (09:33→20:06)
[2021-08-03] MEDS: CALCIUM CARBONATE 500 MG CHEWABLE PO SCH (09:33)
[2021-08-03] MEDS: CYANOCOBALAMIN 500 MCG TAB PO SCH (09:34)
[2021-08-03] MEDS: PANTOPRAZOLE 40 MG TABLET PO SCH (09:34)
[2021-08-03] MEDS: INSULIN ASPART (NovoLOG) 100 UNIT/ML VIAL SQ SCH ×4 (09:34→20:51)
[2021-08-03] MEDS: carvediloL 6.25 MG TAB PO SCH ×2 (09:38→18:52)
[2021-08-03] MEDS: VITAMIN E (DL,TOCOPHERYL ACET) 400 UNIT (180 MG) CAP PO SCH (09:39)
[2021-08-03 10:38] LABS: INR 1.69 (0.90-1.11); Prothrombin Time 18.6 sec (9.9-11.9)
[2021-08-03 11:09] LABS: ALT 8 U/L (4-34); AST 20 U/L (14-36); African American GFR (CKD) 68 (>60 ml/min/1.73 sqM); Albumin 2.7 g/dL (3.5-5.0); Albumin/Globulin Ratio 0.8; Alkaline Phosphatase 82 U/L (38-126); Anion Gap 10 mmol/L; Blood Urea Nitrogen 28 mg/dL (7-17); Calcium 10.4 mg/dL (8.4-10.2); Carbon Dioxide 20 mmol/L (22-30); Chloride 111 mmol/L (98-107); Globulin 3.5 g/dL; Glucose 134 mg/dL (74-99); Non-African American GFR(CKD) 59 (>60 ml/min/1.73 sqM); Potassium 4.2 mmol/L (3.5-5.1); Sodium 141 mmol/L (137-145); Total Bilirubin 0.6 mg/dL (0.2-1.3); Total Protein 6.2 g/dL (6.3-8.2)
[2021-08-03 11:45] LABS: Glucose,Whole Blood 233 mg/dL (75-99)
[2021-08-03 11:47] LABS: Anisocytosis Slight; Basophils % (A) 1 %; Eosinophils % (A) 1 %; HCT 29.8 % (34.0-46.0); HGB 9.3 gm/dL (11.4-16.0); Hypochromasia Marked; Lymphocytes # (A) 1.1 k/uL (1.0-4.8); Lymphocytes % (A) 14 %; MCH 31.8 pg (25.0-35.0); MCHC 31.1 g/dL (31.0-37.0); MCV 102.1 fL (80.0-100.0); Macrocytosis Moderate; Mean Platelet Volume 10.2; Monocytes # (A) 0.7 k/uL (0-1.0); Monocytes % (A) 9 %; Neutrophils # (A) 5.4 k/uL (1.3-7.7); Neutrophils % (A) 72 %; Platelet Count 185 k/uL (150-450); RBC 2.91 m/uL (3.80-5.40); RDW 17.1 % (11.5-15.5); WBC 7.5 k/uL (3.8-10.6)
--- NOTE | 2021-08-03 12:22 | P.PN ---
Subjective Progress Note Date: 08/02/21 This is an 81-year-old female patient of Dr. Thompson who presented with concerns of altered mental status changes. At this time patient is confused in bed history is obtained from medical record. According to record patient was noticed to have increased confusion and less responsive this a.m. by her son and caregiver. Patient was recently discharged possibly 1 month ago from [facility]. Patient does have past medical history of atrial fibrillation in which she is maintained on Coumadin, asthma, heart failure, CVA, diabetes mellitus, hyperlipidemia, hypertension, osteoarthritis and history of COVID-19 infection. Patient also has history of multiple urinary tract infections and ulcer to sacral area and right heel. Head CT was completed showing no acute intracranial process nonspecific white matter changes likely secondary to chronic microangiopathy. UA positive for urinary tract infection. Creatinine also slightly elevated at 1.31 and bun 41 potassium 5.4. Troponin also slightly elevated at 0.055. Patient with elevated temperature 102.6. At this time patient will be admitted patient started on IV Rocephin. Urine culture and blood cultures ordered. Repeat troponin ordered. Cardiology services will be consulted. Current INR 2.1 continue current dose of Coumadin. On 08/01/2021 patient was seen and examined on the medical floor she is alert and oriented in no apparent distress yesterday patient was having severe generalized pain, today she seems more calm and oriented, she was complaining of pain in the hips area, x-ray of bilateral hips was ordered, otherwise patient is denying any complaints at this time there is no fever or chills no headache or dizziness no chest pain no shortness of breath no cough no nausea or vomiting no abdominal pain no diarrhea and no urinary symptoms On 08/02/2021 patient is resting comfortably bed. Orthopedic services are following. CT of pelvis ordered. Discussion held with family about possible hospice care family to discuss among themselves for decision. This time patient denies chest pain or shortness breath. Patient denies nausea vomiting or diarrhea. Patient denies any urinary burning or frequency Objective - Vital Signs Vital signs: Vital Signs Temp 99.7 F H 08/02/21 14:00 Pulse 70 08/02/21 14:00 Resp 18 08/02/21 08:00 BP 147/61 08/02/21 08:00 Pulse Ox 99 08/02/21 14:00 Intake & Output 08/02/21 08/02/21 08/03/21 06:59 18:59 06:59 Intake Total 227 Output Total 250 390 Balance -250 -163 Intake: Oral 227 Output: Urine 250 390 Other: Voiding Method Indwelling Catheter Indwelling Catheter - Exam In general patient is alert and oriented x 3 in no distress HEENT head normocephalic and atraumatic Neck is supple no JVD no goiter no lymphadenopathy no carotid bruit Chest examination is clear to auscultation no crackles no wheezing Cardiac exam reveals regular heart sounds S1 and S2 no gallops no murmurs Abdomen is soft nontender no organomegaly with normal bowel sounds Extremity exam reveals no edema no cyanosis or clubbing Neurological examination reveals no gross focal deficits - Labs CBC & Chem 7: 08/03/21 06:22 08/03/21 06:22 Labs: Abnormal Lab Results - Last 24 Hours (Table) 08/01/21 08/02/21 08/02/21 Range/Units 20:37 06:08 06:08 ESR (0-30) mm/Hr PT 18.1 H (9.9-11.9) sec INR 1.64 H (0.90-1.11) POC Glucose (mg/dL) 177 H (75-99) mg/dL C-Reactive Protein (0.00-0.80) mg/dL Procalcitonin 0.56 H (0.02-0.09) ng/mL 08/02/21 08/02/21 08/02/21 Range/Units 06:08 06:08 07:44 ESR 44 H (0-30) mm/Hr PT (9.9-11.9) sec INR (0.90-1.11) POC Glucose (mg/dL) 133 H (75-99) mg/dL C-Reactive Protein 3.10 H (0.00-0.80) mg/dL Procalcitonin (0.02-0.09) ng/mL 08/02/21 08/02/21 Range/Units 12:16 17:23 ESR (0-30) mm/Hr PT (9.9-11.9) sec INR (0.90-1.11) POC Glucose (mg/dL) 170 H 120 H (75-99) mg/dL C-Reactive Protein (0.00-0.80) mg/dL Procalcitonin (0.02-0.09) ng/mL Microbiology - Last 24 Hours (Table) 07/30/21 16:45 Blood Culture Gram Stain - Final Blood Blood Culture - Final Alpha Hemolytic Streptococcus 07/30/21 20:28 Urine Culture - Final Urine,Voided Klebsiella pneumoniae 07/30/21 17:00 Blood Culture - Preliminary Blood No Growth after 48 hours Assessment and Plan Plan: 1. Altered mental status likely secondary from urinary tract infection 2. Urinary tract infection with elevated temperature and white blood cell count, patient has evidence of sepsis with positive blood cultures for alpha hemolytic streptococcus, dose of Rocephin was increased to 2 g every 24 hours 3. History of atrial fibrillation maintained on Coumadin. Coumadin resumed. INR ordered 4. History of CVA 5. History of recent COVID-19 infection 6. History of hyperlipidemia 7. History of diabetes mellitus type 2 8. History of essential hypertension 9. Hip pain Xray of bilateral hips done, no clear evidence of fracture, will consult ortho 10. Foot ulcer, wound care consult requested DVT prophylaxis Coumadin. GI prophylaxis Protonix Patient started on IV antibiotics Urine and blood cultures ordered Repeat labs ordered PT OT and social work services consulted
--- NOTE | 2021-08-03 12:24 | P.PN ---
Subjective Progress Note Date: 08/03/21 This is an 81-year-old female patient of Dr. Thompson who presented with concerns of altered mental status changes. At this time patient is confused in bed history is obtained from medical record. According to record patient was noticed to have increased confusion and less responsive this a.m. by her son and caregiver. Patient was recently discharged possibly 1 month ago from [facility]. Patient does have past medical history of atrial fibrillation in which she is maintained on Coumadin, asthma, heart failure, CVA, diabetes mellitus, hyperlipidemia, hypertension, osteoarthritis and history of COVID-19 infection. Patient also has history of multiple urinary tract infections and ulcer to sacral area and right heel. Head CT was completed showing no acute intracranial process nonspecific white matter changes likely secondary to chronic microangiopathy. UA positive for urinary tract infection. Creatinine also slightly elevated at 1.31 and bun 41 potassium 5.4. Troponin also slightly elevated at 0.055. Patient with elevated temperature 102.6. At this time patient will be admitted patient started on IV Rocephin. Urine culture and blood cultures ordered. Repeat troponin ordered. Cardiology services will be consulted. Current INR 2.1 continue current dose of Coumadin. On 08/01/2021 patient was seen and examined on the medical floor she is alert and oriented in no apparent distress yesterday patient was having severe generalized pain, today she seems more calm and oriented, she was complaining of pain in the hips area, x-ray of bilateral hips was ordered, otherwise patient is denying any complaints at this time there is no fever or chills no headache or dizziness no chest pain no shortness of breath no cough no nausea or vomiting no abdominal pain no diarrhea and no urinary symptoms On 08/02/2021 patient is resting comfortably bed. Orthopedic services are following. CT of pelvis ordered. Discussion held with family about possible hospice care family to discuss among themselves for decision. This time patient denies chest pain or shortness breath. Patient denies nausea vomiting or diarrhea. Patient denies any urinary burning or frequency On 08/03/2021 patient is resting in bed. CT of pelvis completed. And to be reviewed by orthopedic services. Abdomen and bladder ultrasound completed showing no evidence of right hydronephrosis left kidney not fully visualized. At this time patient denies chest pain or shortness of breath. Patient denies nausea vomiting or diarrhea. Patient denies any urinary burning or frequency. Infectious disease and orthopedic services are following Objective - Vital Signs Vital signs: Vital Signs Temp 97.8 F 08/03/21 08:00 Pulse 70 08/03/21 08:00 Resp 16 08/03/21 10:28 BP 164/68 08/03/21 08:00 Pulse Ox 99 08/03/21 08:00 Intake & Output 08/02/21 08/03/21 08/03/21 18:59 06:59 18:59 Intake Total 227 50 Output Total 390 100 Balance -163 -100 50 Intake: Oral 227 50 Output: Urine 390 100 Other: Voiding Method Indwelling Catheter Indwelling Catheter Indwelling Catheter - Exam In general patient is alert and oriented x 3 in no distress HEENT head normocephalic and atraumatic Neck is supple no JVD no goiter no lymphadenopathy no carotid bruit Chest examination is clear to auscultation no crackles no wheezing Cardiac exam reveals regular heart sounds S1 and S2 no gallops no murmurs Abdomen is soft nontender no organomegaly with normal bowel sounds Extremity exam reveals no edema no cyanosis or clubbing Neurological examination reveals no gross focal deficits - Labs CBC & Chem 7: 08/03/21 06:22 08/03/21 06:22 Labs: Abnormal Lab Results - Last 24 Hours (Table) 08/02/21 08/02/21 08/03/21 Range/Units 17:23 19:48 06:22 RBC (3.80-5.40) m/uL Hgb (11.4-16.0) gm/dL Hct (34.0-46.0) % MCV (80.0-100.0) fL RDW (11.5-15.5) % PT 18.6 H (9.9-11.9) sec INR 1.69 H (0.90-1.11) Chloride (98-107) mmol/L Carbon Dioxide (22-30) mmol/L BUN (7-17) mg/dL Glucose (74-99) mg/dL POC Glucose (mg/dL) 120 H 149 H (75-99) mg/dL Calcium (8.4-10.2) mg/dL Total Protein (6.3-8.2) g/dL Albumin (3.5-5.0) g/dL 08/03/21 08/03/21 08/03/21 Range/Units 06:22 06:22 08:10 RBC 2.91 L (3.80-5.40) m/uL Hgb 9.3 L (11.4-16.0) gm/dL Hct 29.8 L (34.0-46.0) % MCV 102.1 H (80.0-100.0) fL RDW 17.1 H (11.5-15.5) % PT (9.9-11.9) sec INR (0.90-1.11) Chloride 111 H (98-107) mmol/L Carbon Dioxide 20 L (22-30) mmol/L BUN 28 H (7-17) mg/dL Glucose 134 H (74-99) mg/dL POC Glucose (mg/dL) 145 H (75-99) mg/dL Calcium 10.4 H (8.4-10.2) mg/dL Total Protein 6.2 L (6.3-8.2) g/dL Albumin 2.7 L (3.5-5.0) g/dL 08/03/21 Range/Units 11:40 RBC (3.80-5.40) m/uL Hgb (11.4-16.0) gm/dL Hct (34.0-46.0) % MCV (80.0-100.0) fL RDW (11.5-15.5) % PT (9.9-11.9) sec INR (0.90-1.11) Chloride (98-107) mmol/L Carbon Dioxide (22-30) mmol/L BUN (7-17) mg/dL Glucose (74-99) mg/dL POC Glucose (mg/dL) 233 H (75-99) mg/dL Calcium (8.4-10.2) mg/dL Total Protein (6.3-8.2) g/dL Albumin (3.5-5.0) g/dL Microbiology - Last 24 Hours (Table) 08/02/21 06:08 Blood Culture - Preliminary Blood No Growth after 24 hours 07/30/21 17:00 Blood Culture - Preliminary Blood No Growth after 72 hours 07/30/21 16:45 Blood Culture Gram Stain - Final Blood Blood Culture - Final Alpha Hemolytic Streptococcus 07/30/21 20:28 Urine Culture - Final Urine,Voided Klebsiella pneumoniae Assessment and Plan Assessment: 1. Altered mental status likely secondary from urinary tract infection 2. Urinary tract infection with elevated temperature and white blood cell count 3. History of atrial fibrillation maintained on Coumadin. Coumadin resumed. INR ordered 4. History of CVA 5. History of recent COVID-19 infection 6. History of hyperlipidemia 7. History of diabetes mellitus type 2 8. History of essential hypertension DVT prophylaxis Coumadin. GI prophylaxis Protonix Patient started on IV antibiotics Urine and blood cultures ordered Repeat labs ordered PT OT and social work services consulted
[2021-08-03] MEDS: ACETAMINOPHEN TAB 325 MG TAB PO PRN (14:45)
[2021-08-03 17:10] LABS: Glucose,Whole Blood 179 mg/dL (75-99)
[2021-08-03] MEDS ORDERED: WARFARIN 3 MG TAB PO ONE (18:00)
--- NOTE | 2021-08-03 18:48 | P.PN ---
Subjective Progress Note Date: 08/03/21 This patient is an 81- year old female orthopedics is following for bilateral hip pain. CT scan of the pelvis was obtained yesterday. Patient is seen and examined bedside with Dr. Arcos. Daughter is bedside. Per daughter, patient has been mostly non-ambulatory since last year. There have been no recent injuries or falls she is aware. Patient has no voiced complaints or concerns at this time. Objective - Vital Signs Vital signs: Vital Signs Temp 97.4 F L 08/03/21 14:00 Pulse 70 08/03/21 14:00 Resp 16 08/03/21 14:00 BP 134/64 08/03/21 14:00 Pulse Ox 100 08/03/21 14:00 Intake & Output 08/02/21 08/03/21 08/03/21 18:59 06:59 18:59 Intake Total 227 50 Output Total 390 100 350 Balance -163 -100 -300 Intake: Oral 227 50 Output: Urine 390 100 350 Other: Voiding Method Indwelling Catheter Indwelling Catheter Indwelling Catheter - Exam On examination, patient is lying in bed in no apparent distress. She is alert and orientated x0. Her daughter is bedside. On inspection of the bilateral hips, there are no obvious deformities or signs of trauma. No erythema, ecchymosis, warmth. No skin lacerations or abrasions. Pain with palpation of the bilateral lower extremities. Pain with any attempts at palpation or PROM of the bilateral lower extremities. The bilateral lower extremities are warm and well perfused. - Labs CBC & Chem 7: 08/03/21 06:22 08/03/21 06:22 Labs: Abnormal Lab Results - Last 24 Hours (Table) 08/02/21 08/03/21 08/03/21 Range/Units 19:48 06:22 06:22 RBC 2.91 L (3.80-5.40) m/uL Hgb 9.3 L (11.4-16.0) gm/dL Hct 29.8 L (34.0-46.0) % MCV 102.1 H (80.0-100.0) fL RDW 17.1 H (11.5-15.5) % PT 18.6 H (9.9-11.9) sec INR 1.69 H (0.90-1.11) Chloride (98-107) mmol/L Carbon Dioxide (22-30) mmol/L BUN (7-17) mg/dL Glucose (74-99) mg/dL POC Glucose (mg/dL) 149 H (75-99) mg/dL Calcium (8.4-10.2) mg/dL Total Protein (6.3-8.2) g/dL Albumin (3.5-5.0) g/dL 08/03/21 08/03/21 08/03/21 Range/Units 06:22 08:10 11:40 RBC (3.80-5.40) m/uL Hgb (11.4-16.0) gm/dL Hct (34.0-46.0) % MCV (80.0-100.0) fL RDW (11.5-15.5) % PT (9.9-11.9) sec INR (0.90-1.11) Chloride 111 H (98-107) mmol/L Carbon Dioxide 20 L (22-30) mmol/L BUN 28 H (7-17) mg/dL Glucose 134 H (74-99) mg/dL POC Glucose (mg/dL) 145 H 233 H (75-99) mg/dL Calcium 10.4 H (8.4-10.2) mg/dL Total Protein 6.2 L (6.3-8.2) g/dL Albumin 2.7 L (3.5-5.0) g/dL 08/03/21 Range/Units 16:52 RBC (3.80-5.40) m/uL Hgb (11.4-16.0) gm/dL Hct (34.0-46.0) % MCV (80.0-100.0) fL RDW (11.5-15.5) % PT (9.9-11.9) sec INR (0.90-1.11) Chloride (98-107) mmol/L Carbon Dioxide (22-30) mmol/L BUN (7-17) mg/dL Glucose (74-99) mg/dL POC Glucose (mg/dL) 179 H (75-99) mg/dL Calcium (8.4-10.2) mg/dL Total Protein (6.3-8.2) g/dL Albumin (3.5-5.0) g/dL Microbiology - Last 24 Hours (Table) 07/30/21 16:45 Blood Culture Gram Stain - Final Blood Blood Culture - Final Alpha Hemolytic Streptococcus 08/02/21 06:08 Blood Culture - Preliminary Blood No Growth after 24 hours 07/30/21 17:00 Blood Culture - Preliminary Blood No Growth after 72 hours - Imaging and Cardiology CT scan of the pelvis obtained on 08/02/21 reviewed. No acute hip fracture identified. Areas concerning for possible insufficiency fracture noted in the pelvis, no definite fracture line identified. Assessment and Plan Assessment: Bilateral hip pain Bilateral lower extremity pain Plan: - Patient was evaluated with Dr. Arcos today. The clinical and imaging findings were discussed with her daughter. No surgical intervention recommended. Recommend observation of her bilateral hip pain at this time. - If ambulatory, patient should protect her weight bearing with a walker and up with assistance. - Pain management as needed, per primary team. - We will sign off at this time. Patient may follow-up in our office on an outpatient basis as needed.
[2021-08-03] MEDS: MAGNESIUM OXIDE 400 MG TAB PO SCH (20:06)
[2021-08-03] MEDS: ATORVASTATIN 10 MG TAB PO SCH (20:06)
[2021-08-03] MEDS: MONTELUKAST 10 MG TAB PO SCH (20:06)
[2021-08-03 20:22] LABS: Glucose,Whole Blood 168 mg/dL (75-99)
--- NOTE | 2021-08-03 22:44 | P.PN ---
Subjective Progress Note Date: 08/03/21 Principal diagnosis: Bacteremia and urinary tract infection Patient is a 81-year-old female presented to the hospital mental status changes and this patient did have evidence of urinary tract infection and a positive blood culture with alpha hemolytic Streptococcus. On today's evaluation that is 08/03/2021, the patient remains to be afebrile, the patient is breathing comfortably on room air no vomiting or diarrhea has been reported by the nursing staff Objective - Vital Signs Vital signs: Vital Signs Temp 97.8 F 08/03/21 08:00 Pulse 70 08/03/21 08:00 Resp 16 08/03/21 10:28 BP 164/68 08/03/21 08:00 Pulse Ox 99 08/03/21 08:00 Intake & Output 08/02/21 08/03/21 08/03/21 18:59 06:59 18:59 Intake Total 227 50 Output Total 390 100 Balance -163 -100 50 Intake: Oral 227 50 Output: Urine 390 100 Other: Voiding Method Indwelling Catheter Indwelling Catheter Indwelling Catheter - Exam GENERAL DESCRIPTION: An elderly female lying in bed in no distress RESPIRATORY SYSTEM: Unlabored breathing , decreased breath sounds at bases HEART: S1 S2 regular rate and rhythm , ABDOMEN: Soft , no tenderness EXTREMITIES: No edema feet - Labs CBC & Chem 7: 08/03/21 06:22 08/03/21 06:22 Labs: Abnormal Lab Results - Last 24 Hours (Table) 08/02/21 08/02/21 08/03/21 Range/Units 17:23 19:48 06:22 RBC (3.80-5.40) m/uL Hgb (11.4-16.0) gm/dL Hct (34.0-46.0) % MCV (80.0-100.0) fL RDW (11.5-15.5) % PT 18.6 H (9.9-11.9) sec INR 1.69 H (0.90-1.11) Chloride (98-107) mmol/L Carbon Dioxide (22-30) mmol/L BUN (7-17) mg/dL Glucose (74-99) mg/dL POC Glucose (mg/dL) 120 H 149 H (75-99) mg/dL Calcium (8.4-10.2) mg/dL Total Protein (6.3-8.2) g/dL Albumin (3.5-5.0) g/dL 08/03/21 08/03/21 08/03/21 Range/Units 06:22 06:22 08:10 RBC 2.91 L (3.80-5.40) m/uL Hgb 9.3 L (11.4-16.0) gm/dL Hct 29.8 L (34.0-46.0) % MCV 102.1 H (80.0-100.0) fL RDW 17.1 H (11.5-15.5) % PT (9.9-11.9) sec INR (0.90-1.11) Chloride 111 H (98-107) mmol/L Carbon Dioxide 20 L (22-30) mmol/L BUN 28 H (7-17) mg/dL Glucose 134 H (74-99) mg/dL POC Glucose (mg/dL) 145 H (75-99) mg/dL Calcium 10.4 H (8.4-10.2) mg/dL Total Protein 6.2 L (6.3-8.2) g/dL Albumin 2.7 L (3.5-5.0) g/dL 08/03/21 Range/Units 11:40 RBC (3.80-5.40) m/uL Hgb (11.4-16.0) gm/dL Hct (34.0-46.0) % MCV (80.0-100.0) fL RDW (11.5-15.5) % PT (9.9-11.9) sec INR (0.90-1.11) Chloride (98-107) mmol/L Carbon Dioxide (22-30) mmol/L BUN (7-17) mg/dL Glucose (74-99) mg/dL POC Glucose (mg/dL) 233 H (75-99) mg/dL Calcium (8.4-10.2) mg/dL Total Protein (6.3-8.2) g/dL Albumin (3.5-5.0) g/dL Microbiology - Last 24 Hours (Table) 08/02/21 06:08 Blood Culture - Preliminary Blood No Growth after 24 hours 07/30/21 17:00 Blood Culture - Preliminary Blood No Growth after 72 hours 07/30/21 16:45 Blood Culture Gram Stain - Final Blood Blood Culture - Final Alpha Hemolytic Streptococcus 07/30/21 20:28 Urine Culture - Final Urine,Voided Klebsiella pneumoniae Assessment and Plan (1) UTI (urinary tract infection) Current Visit: Yes Status: Acute Code(s): N39.0 - URINARY TRACT INFECTION, SITE NOT SPECIFIED SNOMED Code(s): 47442421 Plan: 1patient with positive blood culture with alphahemolytic Streptococcus could be likely a skin contaminant , blood cultures repeat has been negative so for 2-patient did have a fever or more likely a UTI with urine culture finalized with Klebsiella that is sensitive to Rocephin 3-stage II sacral pressure ulcer no cellulitis 4-pt to continue the patient Rocephin 2 g daily with a plan to finish therapy with oral antibiotics 5- skin protective cream to the sacral area and keep the area of the pressure Time with Patient: Less than 30
[2021-08-04 07:18] LABS: INR 2.1 (<1.2); Prothrombin Time 20.7 sec (9.0-12.0)
[2021-08-04 07:42] LABS: Glucose,Whole Blood 133 mg/dL (75-99)
[2021-08-04] MEDS: CALCIUM CARBONATE 500 MG CHEWABLE PO SCH (09:07)
[2021-08-04] MEDS: INSULIN ASPART (NovoLOG) 100 UNIT/ML VIAL SQ SCH ×5 (09:07→20:52)
[2021-08-04] MEDS: PANTOPRAZOLE 40 MG TABLET PO SCH (09:07)
[2021-08-04] MEDS: FERROUS SULFATE 325 MG TAB PO SCH ×2 (09:07→19:54)
[2021-08-04] MEDS: CHOLECALCIFEROL 125 MCG (5000 IU) TABLET PO SCH (09:08)
[2021-08-04] MEDS: VITAMIN E (DL,TOCOPHERYL ACET) 400 UNIT (180 MG) CAP PO SCH (09:08)
[2021-08-04] MEDS: CYANOCOBALAMIN 500 MCG TAB PO SCH (09:08)
[2021-08-04] MEDS: carvediloL 6.25 MG TAB PO SCH ×2 (09:08→17:53)
[2021-08-04 09:09] LABS: Basophils # (A) 0.02 X 10*3/uL (0.00-0.10); Basophils % (A) 0.3 %; Eosinophils # (A) 0.19 X 10*3/uL (0.04-0.35); Eosinophils % (A) 2.6 %; HCT 25.2 % (37.2-46.3); HGB 7.4 g/dL (12.0-15.0); Immature Grans, Automated 1.6 %; Lymphocytes # (A) 1.88 X 10*3/uL (0.90-5.00); Lymphocytes % (A) 25.3 %; MCH 29.4 pg (27.0-32.0); MCHC 29.4 g/dL (32.0-37.0); Mean Platelet Volume 11.9 fL (9.5-12.2); Monocytes # (A) 0.81 X 10*3/uL (0.20-1.00); Monocytes % (A) 10.9 %; NRBC Per 100 WBC 0 /100 WBCS (0.0-0.0); Neutrophils # (A) 4.41 X 10*3/uL (1.80-7.70); Neutrophils % (A) 59.3 %; Platelet Count 174 X 10*3/uL (140-440); RBC 2.52 X 10*6/uL (4.10-5.20); WBC 7.43 X 10*3/uL (4.50-10.00)
[2021-08-04] MEDS: SODIUM CHLORIDE 0.9% 1,000 ML IV SCH ×3 (09:16→19:54)
[2021-08-04 09:30] LABS: Albumin 2.4 g/dL (3.8-4.9); Albumin/Globulin Ratio 0.77 (1.60-3.17); Anion Gap 11.6 mmol/L (10.00-18.00); BUN/Creat Ratio 23.78 Ratio (12.00-20.00); Blood Urea Nitrogen 21.4 mg/dL (9.0-27.0); Calcium 9.9 mg/dL (8.7-10.3); Carbon Dioxide 20.4 mmol/L (20.0-27.5); Globulin 3.1 g/dL (1.6-3.3); Non-African American GFR(CKD) 59.5 (60.0-200.0); Potassium 3.9 mmol/L (3.5-5.5); Total Bilirubin 0.4 mg/dL (0.30-1.20); Total Protein 5.5 g/dL (6.2-8.2)
--- NOTE | 2021-08-04 09:51 | CDI ---
Documentation Clarification Form Date: 08/04/2021 09:20:57 AM From: Kayla Philip RN, CCDS Admit Date: 08/01/2021 07:37:00 AM Patient Name: Moriah Tong Visit Number: [id number] Discharge Date: ATTENTION: The Clinical Documentation Specialists (CDI) and [facility] Coding Staff appreciate your assistance in clarifying documentation. Please respond to the clarification below the line at the bottom and electronically sign. The CDI & [facility] Coding staff will review the response and follow-up if needed. Please note: Queries are made part of the Legal Health Record. If you have any questions, please contact the author of this message via ITS. Dr. Adhikari Your patient has the documented symptom of Altered Mental Status in the H/P and subsequent progress notes. Additional clarification regarding the etiology/cause of this symptom is requested. History/Risk Factors: Diabetes Mellitus type 2, Hypertension, Atrial fibrillation, CVA, UTI Clinical Indicators: 81-year-old female present with ataxia and altered mental status. She was alert and oriented X2, yelling in pain. 07/30 Labs: 14.3 HGB 9.6, HCT 31.1, BUN 41, CR 1.31, Troponin 0.055, UA; Urine Nitrite positive, Ur Leukocyte Esterase Large Brain CT: No acute intracranial process. 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 Treatment: Neuro Check per protocol Rocephin 2 GM IVPB Q 24 HRS Monitor Labs, kidney function Please clarify the etiology of the symptom of Altered Mental Status: [ x ] Metabolic Encephalopathy due to urinary tract infection [ ] Other condition (please specify) [ ] Unable to determine (Template Last Revised: June 2020) MTDD
[2021-08-04] MEDS: HYDROmorphone 0.5 MG/0.5 ML SYRINGE IVP PRN ×2 (12:06→19:56)
[2021-08-04 12:08] LABS: Glucose,Whole Blood 123 mg/dL (75-99)
[2021-08-04 16:53] LABS: % Iron Saturation 19.04 (12.00-45.00); Iron 25 ug/dL (50-170); Total Iron Binding Capacity 133 ug/dL (228-460); Vitamin B12 >2000.0 pg/mL (200.0-944.0)
[2021-08-04 17:10] LABS: Glucose,Whole Blood 298 mg/dL (75-99)
[2021-08-04] MEDS ORDERED: WARFARIN 2 MG TAB PO ONE (18:00)
[2021-08-04] MEDS ORDERED: SODIUM FERRIC GLUCONAT-SUCROSE 125 MG in SODIUM CHLORIDE 0.9% 100 ML IVPB ONE (18:08)
[2021-08-04] MEDS: MONTELUKAST 10 MG TAB PO SCH (19:54)
[2021-08-04] MEDS: ATORVASTATIN 10 MG TAB PO SCH (19:54)
[2021-08-04] MEDS: MAGNESIUM OXIDE 400 MG TAB PO SCH (19:54)
[2021-08-04 20:33] LABS: Glucose,Whole Blood 169 mg/dL (75-99)
--- NOTE | 2021-08-04 22:51 | P.PN ---
Subjective Progress Note Date: 08/04/21 Principal diagnosis: Bacteremia and urinary tract infection Patient is a 81-year-old female presented to the hospital mental status changes and this patient did have evidence of urinary tract infection and a positive blood culture with alpha hemolytic Streptococcus. On today's evaluation that is 07/13/2021, the patient is afebrile, the patient is breathing comfortably on room air the patient denies any chest pain shortness with a cough no abdominal pain and no diarrhea reported Objective - Vital Signs Vital signs: Vital Signs Temp 98.3 F 08/04/21 08:00 Pulse 70 08/04/21 08:00 Resp 18 08/04/21 08:00 BP 153/56 08/04/21 08:00 Pulse Ox 96 08/04/21 08:00 Intake & Output 08/03/21 08/04/21 08/04/21 18:59 06:59 18:59 Intake Total 50 Output Total 350 200 Balance -300 -200 Intake: Oral 50 Output: Urine 350 200 Other: Voiding Method Indwelling Catheter Indwelling Catheter Indwelling Catheter - Exam GENERAL DESCRIPTION: An elderly female lying in bed in no distress RESPIRATORY SYSTEM: Unlabored breathing , decreased breath sounds at bases HEART: S1 S2 regular rate and rhythm , ABDOMEN: Soft , no tenderness EXTREMITIES: No edema feet - Labs CBC & Chem 7: 08/04/21 06:46 08/04/21 06:46 Labs: Abnormal Lab Results - Last 24 Hours (Table) 08/03/21 08/03/21 08/03/21 Range/Units 06:22 06:22 06:22 RBC 2.91 L (3.80-5.40) m/uL Hgb 9.3 L (11.4-16.0) gm/dL Hct 29.8 L (34.0-46.0) % MCV 102.1 H (80.0-100.0) fL MCHC (32.0-37.0) g/dL RDW 17.1 H (11.5-15.5) % Immature Gran # (0.00-0.04) X 10*3/uL PT 18.6 H (9.9-11.9) sec INR 1.69 H (0.90-1.11) Chloride 111 H (98-107) mmol/L Carbon Dioxide 20 L (22-30) mmol/L BUN 28 H (7-17) mg/dL Est GFR (CKD-EPI)NonAf (60.0-200.0) BUN/Creatinine Ratio (12.00-20.00) Ratio Glucose 134 H (74-99) mg/dL POC Glucose (mg/dL) (75-99) mg/dL Calcium 10.4 H (8.4-10.2) mg/dL AST (13-35) U/L ALT (8-44) U/L Total Protein 6.2 L (6.3-8.2) g/dL Albumin 2.7 L (3.5-5.0) g/dL Albumin/Globulin Ratio (1.60-3.17) g/dL 08/03/21 08/03/21 08/03/21 Range/Units 11:40 16:52 20:20 RBC (3.80-5.40) m/uL Hgb (11.4-16.0) gm/dL Hct (34.0-46.0) % MCV (80.0-100.0) fL MCHC (32.0-37.0) g/dL RDW (11.5-15.5) % Immature Gran # (0.00-0.04) X 10*3/uL PT (9.9-11.9) sec INR (0.90-1.11) Chloride (98-107) mmol/L Carbon Dioxide (22-30) mmol/L BUN (7-17) mg/dL Est GFR (CKD-EPI)NonAf (60.0-200.0) BUN/Creatinine Ratio (12.00-20.00) Ratio Glucose (74-99) mg/dL POC Glucose (mg/dL) 233 H 179 H 168 H (75-99) mg/dL Calcium (8.4-10.2) mg/dL AST (13-35) U/L ALT (8-44) U/L Total Protein (6.3-8.2) g/dL Albumin (3.5-5.0) g/dL Albumin/Globulin Ratio (1.60-3.17) g/dL 08/04/21 08/04/21 08/04/21 Range/Units 06:46 06:46 06:46 RBC 2.52 L (3.80-5.40) m/uL Hgb 7.4 L (11.4-16.0) gm/dL Hct 25.2 L (34.0-46.0) % MCV 100.0 H (80.0-100.0) fL MCHC 29.4 L (32.0-37.0) g/dL RDW 18.0 H (11.5-15.5) % Immature Gran # 0.12 H (0.00-0.04) X 10*3/uL PT 20.7 H (9.9-11.9) sec INR 2.1 H (0.90-1.11) Chloride (98-107) mmol/L Carbon Dioxide (22-30) mmol/L BUN (7-17) mg/dL Est GFR (CKD-EPI)NonAf 59.5 L (60.0-200.0) BUN/Creatinine Ratio 23.78 H (12.00-20.00) Ratio Glucose 122 H (74-99) mg/dL POC Glucose (mg/dL) (75-99) mg/dL Calcium (8.4-10.2) mg/dL AST 12 L (13-35) U/L ALT 7 L (8-44) U/L Total Protein 5.5 L (6.3-8.2) g/dL Albumin 2.4 L (3.5-5.0) g/dL Albumin/Globulin Ratio 0.77 L (1.60-3.17) g/dL 08/04/21 Range/Units 07:40 RBC (3.80-5.40) m/uL Hgb (11.4-16.0) gm/dL Hct (34.0-46.0) % MCV (80.0-100.0) fL MCHC (32.0-37.0) g/dL RDW (11.5-15.5) % Immature Gran # (0.00-0.04) X 10*3/uL PT (9.9-11.9) sec INR (0.90-1.11) Chloride (98-107) mmol/L Carbon Dioxide (22-30) mmol/L BUN (7-17) mg/dL Est GFR (CKD-EPI)NonAf (60.0-200.0) BUN/Creatinine Ratio (12.00-20.00) Ratio Glucose (74-99) mg/dL POC Glucose (mg/dL) 133 H (75-99) mg/dL Calcium (8.4-10.2) mg/dL AST (13-35) U/L ALT (8-44) U/L Total Protein (6.3-8.2) g/dL Albumin (3.5-5.0) g/dL Albumin/Globulin Ratio (1.60-3.17) g/dL Microbiology - Last 24 Hours (Table) 08/02/21 06:08 Blood Culture - Preliminary Blood No Growth after 48 hours 07/30/21 17:00 Blood Culture - Preliminary Blood No Growth after 96 hours 07/30/21 16:45 Blood Culture Gram Stain - Final Blood Blood Culture - Final Alpha Hemolytic Streptococcus Assessment and Plan (1) UTI (urinary tract infection) Current Visit: Yes Status: Acute Code(s): N39.0 - URINARY TRACT INFECTION, SITE NOT SPECIFIED SNOMED Code(s): 70870273 Plan: 1patient with positive blood culture with alphahemolytic Streptococcus could be likely a skin contaminant , blood cultures repeat has been negative so for 2-patient did have a fever or more likely a UTI with urine culture finalized with Klebsiella that is sensitive to Rocephin which will be continued 3-stage II sacral pressure ulcer no cellulitis 4-pt is currently being treated Rocephin 2 g daily while inpatient and plan to finish therapy with oral antibiotics 5- skin protective cream to the sacral area and keep the area of the pressure She Time with Patient: Less than 30
[2021-08-05 07:44] LABS: Glucose,Whole Blood 152 mg/dL (75-99)
[2021-08-05 08:06] LABS: INR 2.4 (<1.2); Prothrombin Time 24.4 sec (9.0-12.0)
[2021-08-05] MEDS: CYANOCOBALAMIN 500 MCG TAB PO SCH (09:25)
[2021-08-05] MEDS: carvediloL 6.25 MG TAB PO SCH ×2 (09:25→17:27)
[2021-08-05] MEDS: VITAMIN E (DL,TOCOPHERYL ACET) 400 UNIT (180 MG) CAP PO SCH (09:25)
[2021-08-05] MEDS: CALCIUM CARBONATE 500 MG CHEWABLE PO SCH (09:25)
[2021-08-05] MEDS: PANTOPRAZOLE 40 MG TABLET PO SCH (09:25)
[2021-08-05] MEDS: FERROUS SULFATE 325 MG TAB PO SCH ×2 (09:25→20:17)
[2021-08-05] MEDS: CHOLECALCIFEROL 125 MCG (5000 IU) TABLET PO SCH (09:25)
[2021-08-05] MEDS: INSULIN ASPART (NovoLOG) 100 UNIT/ML VIAL SQ SCH ×4 (09:29→20:17)
--- NOTE | 2021-08-05 10:02 | P.PN ---
Subjective Progress Note Date: 08/04/21 This is an 81-year-old female patient of Dr. Thompson who presented with concerns of altered mental status changes. At this time patient is confused in bed history is obtained from medical record. According to record patient was noticed to have increased confusion and less responsive this a.m. by her son and caregiver. Patient was recently discharged possibly 1 month ago from [facility]. Patient does have past medical history of atrial fibrillation in which she is maintained on Coumadin, asthma, heart failure, CVA, diabetes mellitus, hyperlipidemia, hypertension, osteoarthritis and history of COVID-19 infection. Patient also has history of multiple urinary tract infections and ulcer to sacral area and right heel. Head CT was completed showing no acute intracranial process nonspecific white matter changes likely secondary to chronic microangiopathy. UA positive for urinary tract infection. Creatinine also slightly elevated at 1.31 and bun 41 potassium 5.4. Troponin also slightly elevated at 0.055. Patient with elevated temperature 102.6. At this time patient will be admitted patient started on IV Rocephin. Urine culture and blood cultures ordered. Repeat troponin ordered. Cardiology services will be consulted. Current INR 2.1 continue current dose of Coumadin. On 08/01/2021 patient was seen and examined on the medical floor she is alert and oriented in no apparent distress yesterday patient was having severe generalized pain, today she seems more calm and oriented, she was complaining of pain in the hips area, x-ray of bilateral hips was ordered, otherwise patient is denying any complaints at this time there is no fever or chills no headache or dizziness no chest pain no shortness of breath no cough no nausea or vomiting no abdominal pain no diarrhea and no urinary symptoms On 08/02/2021 patient is resting comfortably bed. Orthopedic services are following. CT of pelvis ordered. Discussion held with family about possible hospice care family to discuss among themselves for decision. This time patient denies chest pain or shortness breath. Patient denies nausea vomiting or diarrhea. Patient denies any urinary burning or frequency On 08/03/2021 patient is resting in bed. CT of pelvis completed. And to be reviewed by orthopedic services. Abdomen and bladder ultrasound completed showing no evidence of right hydronephrosis left kidney not fully visualized. At this time patient denies chest pain or shortness of breath. Patient denies nausea vomiting or diarrhea. Patient denies any urinary burning or frequency. Infectious disease and orthopedic services are following On 08/04/2021 patient is resting in bed. Patient remains on IV antibiotics. Per orthopedic services no plans for surgical intervention at this time. Tentative plans for possible DC home with home health care and palliative care. At this time patient denies chest pain or shortness of breath. Patient denies nausea vomiting or diarrhea. Patient denies any urinary burning or frequency Objective - Vital Signs Vital signs: Vital Signs Temp 98.3 F 08/04/21 08:00 Pulse 70 08/04/21 08:00 Resp 18 08/04/21 08:00 BP 153/56 08/04/21 08:00 Pulse Ox 96 08/04/21 08:00 Intake & Output 08/03/21 08/04/21 08/04/21 18:59 06:59 18:59 Intake Total 50 Output Total 350 200 Balance -300 -200 Intake: Oral 50 Output: Urine 350 200 Other: Voiding Method Indwelling Catheter Indwelling Catheter Indwelling Catheter - Exam In general patient is alert and oriented x 3 in no distress HEENT head normocephalic and atraumatic Neck is supple no JVD no goiter no lymphadenopathy no carotid bruit Chest examination is clear to auscultation no crackles no wheezing Cardiac exam reveals regular heart sounds S1 and S2 no gallops no murmurs Abdomen is soft nontender no organomegaly with normal bowel sounds Extremity exam reveals no edema no cyanosis or clubbing Neurological examination reveals no gross focal deficits - Labs CBC & Chem 7: 08/04/21 06:46 08/04/21 06:46 Labs: Abnormal Lab Results - Last 24 Hours (Table) 08/03/21 08/03/21 08/04/21 Range/Units 16:52 20:20 06:46 RBC (4.10-5.20) X 10*6/uL Hgb (12.0-15.0) g/dL Hct (37.2-46.3) % MCV (80.0-97.0) fL MCHC (32.0-37.0) g/dL RDW (11.5-14.5) % Immature Gran # (0.00-0.04) X 10*3/uL PT 20.7 H (9.0-12.0) sec INR 2.1 H (<1.2) Est GFR (CKD-EPI)NonAf (60.0-200.0) BUN/Creatinine Ratio (12.00-20.00) Ratio Glucose (70-110) mg/dL POC Glucose (mg/dL) 179 H 168 H (75-99) mg/dL AST (13-35) U/L ALT (8-44) U/L Total Protein (6.2-8.2) g/dL Albumin (3.8-4.9) g/dL Albumin/Globulin Ratio (1.60-3.17) g/dL 08/04/21 08/04/21 08/04/21 Range/Units 06:46 06:46 07:40 RBC 2.52 L (4.10-5.20) X 10*6/uL Hgb 7.4 L (12.0-15.0) g/dL Hct 25.2 L (37.2-46.3) % MCV 100.0 H (80.0-97.0) fL MCHC 29.4 L (32.0-37.0) g/dL RDW 18.0 H (11.5-14.5) % Immature Gran # 0.12 H (0.00-0.04) X 10*3/uL PT (9.0-12.0) sec INR (<1.2) Est GFR (CKD-EPI)NonAf 59.5 L (60.0-200.0) BUN/Creatinine Ratio 23.78 H (12.00-20.00) Ratio Glucose 122 H (70-110) mg/dL POC Glucose (mg/dL) 133 H (75-99) mg/dL AST 12 L (13-35) U/L ALT 7 L (8-44) U/L Total Protein 5.5 L (6.2-8.2) g/dL Albumin 2.4 L (3.8-4.9) g/dL Albumin/Globulin Ratio 0.77 L (1.60-3.17) g/dL 08/04/21 Range/Units 12:06 RBC (4.10-5.20) X 10*6/uL Hgb (12.0-15.0) g/dL Hct (37.2-46.3) % MCV (80.0-97.0) fL MCHC (32.0-37.0) g/dL RDW (11.5-14.5) % Immature Gran # (0.00-0.04) X 10*3/uL PT (9.0-12.0) sec INR (<1.2) Est GFR (CKD-EPI)NonAf (60.0-200.0) BUN/Creatinine Ratio (12.00-20.00) Ratio Glucose (70-110) mg/dL POC Glucose (mg/dL) 123 H (75-99) mg/dL AST (13-35) U/L ALT (8-44) U/L Total Protein (6.2-8.2) g/dL Albumin (3.8-4.9) g/dL Albumin/Globulin Ratio (1.60-3.17) g/dL Microbiology - Last 24 Hours (Table) 08/02/21 06:08 Blood Culture - Preliminary Blood No Growth after 48 hours 07/30/21 17:00 Blood Culture - Preliminary Blood No Growth after 96 hours 07/30/21 16:45 Blood Culture Gram Stain - Final Blood Blood Culture - Final Alpha Hemolytic Streptococcus Assessment and Plan Plan: 1. Altered mental status likely secondary from urinary tract infection 2. Urinary tract infection with elevated temperature and white blood cell count, patient has evidence of sepsis with positive blood cultures for alpha hemolytic streptococcus, dose of Rocephin was increased to 2 g every 24 hours 3. History of atrial fibrillation maintained on Coumadin. Coumadin resumed. INR ordered 4. History of CVA 5. History of recent COVID-19 infection 6. History of hyperlipidemia 7. History of diabetes mellitus type 2 8. History of essential hypertension 9. Hip pain Xray of bilateral hips done, no clear evidence of fracture, will consult ortho 10. Foot ulcer, wound care consult requested DVT prophylaxis Coumadin. GI prophylaxis Protonix Patient started on IV antibiotics Urine and blood cultures ordered Repeat labs ordered PT OT and social work services consulted
[2021-08-05 11:53] LABS: Glucose,Whole Blood 203 mg/dL (75-99)
[2021-08-05] MEDS: SODIUM CHLORIDE 0.9% 1,000 ML IV SCH ×2 (13:00→22:03)
--- NOTE | 2021-08-05 13:08 | P.PN ---
Subjective Progress Note Date: 08/05/21 This is an 81-year-old female patient of Dr. Thompson who presented with concerns of altered mental status changes. At this time patient is confused in bed history is obtained from medical record. According to record patient was noticed to have increased confusion and less responsive this a.m. by her son and caregiver. Patient was recently discharged possibly 1 month ago from [facility]. Patient does have past medical history of atrial fibrillation in which she is maintained on Coumadin, asthma, heart failure, CVA, diabetes mellitus, hyperlipidemia, hypertension, osteoarthritis and history of COVID-19 infection. Patient also has history of multiple urinary tract infections and ulcer to sacral area and right heel. Head CT was completed showing no acute intracranial process nonspecific white matter changes likely secondary to chronic microangiopathy. UA positive for urinary tract infection. Creatinine also slightly elevated at 1.31 and bun 41 potassium 5.4. Troponin also slightly elevated at 0.055. Patient with elevated temperature 102.6. At this time patient will be admitted patient started on IV Rocephin. Urine culture and blood cultures ordered. Repeat troponin ordered. Cardiology services will be consulted. Current INR 2.1 continue current dose of Coumadin. On 08/01/2021 patient was seen and examined on the medical floor she is alert and oriented in no apparent distress yesterday patient was having severe generalized pain, today she seems more calm and oriented, she was complaining of pain in the hips area, x-ray of bilateral hips was ordered, otherwise patient is denying any complaints at this time there is no fever or chills no headache or dizziness no chest pain no shortness of breath no cough no nausea or vomiting no abdominal pain no diarrhea and no urinary symptoms On 08/02/2021 patient is resting comfortably bed. Orthopedic services are following. CT of pelvis ordered. Discussion held with family about possible hospice care family to discuss among themselves for decision. This time patient denies chest pain or shortness breath. Patient denies nausea vomiting or diarrhea. Patient denies any urinary burning or frequency On 08/03/2021 patient is resting in bed. CT of pelvis completed. And to be reviewed by orthopedic services. Abdomen and bladder ultrasound completed showing no evidence of right hydronephrosis left kidney not fully visualized. At this time patient denies chest pain or shortness of breath. Patient denies nausea vomiting or diarrhea. Patient denies any urinary burning or frequency. Infectious disease and orthopedic services are following On 08/04/2021 patient is resting in bed. Patient remains on IV antibiotics. Per orthopedic services no plans for surgical intervention at this time. Tentative plans for possible DC home with home health care and palliative care. At this time patient denies chest pain or shortness of breath. Patient denies nausea vomiting or diarrhea. Patient denies any urinary burning or frequency On 08/05/2021 patient is alert and oriented 2. Case management following for DC plan home with palliative care. Patient remains on IV antibiotics. INR therapeutic at 2.4. At this time patient denies chest pain or shortness. Patient denies nausea vomiting or diarrhea. Patient denies any urinary burning or frequency Objective - Vital Signs Vital signs: Vital Signs Temp 97.7 F 08/05/21 08:00 Pulse 68 08/05/21 08:00 Resp 22 08/05/21 08:00 BP 155/69 08/05/21 08:00 Pulse Ox 97 08/05/21 08:00 Intake & Output 08/04/21 08/05/21 08/05/21 18:59 06:59 18:59 Output Total 350 200 Balance -350 -200 Output: Urine 350 200 Other: Voiding Method Indwelling Catheter External Catheter - Exam In general patient is alert and oriented x 3 in no distress HEENT head normocephalic and atraumatic Neck is supple no JVD no goiter no lymphadenopathy no carotid bruit Chest examination is clear to auscultation no crackles no wheezing Cardiac exam reveals regular heart sounds S1 and S2 no gallops no murmurs Abdomen is soft nontender no organomegaly with normal bowel sounds Extremity exam reveals no edema no cyanosis or clubbing Neurological examination reveals no gross focal deficits - Labs CBC & Chem 7: 08/04/21 06:46 08/04/21 06:46 Labs: Abnormal Lab Results - Last 24 Hours (Table) 08/04/21 08/04/21 08/04/21 Range/Units 06:46 12:06 17:08 PT (9.0-12.0) sec INR (<1.2) POC Glucose (mg/dL) 123 H 298 H (75-99) mg/dL Iron 25 L (50-170) ug/dL TIBC 133 L (228-460) ug/dL Transferrin 95.3 L (204.0-354.0) mg/dL Vitamin B12 >2000.0 H (200.0-944.0) pg/mL 08/04/21 08/05/21 08/05/21 Range/Units 20:32 07:10 07:42 PT 24.4 H (9.0-12.0) sec INR 2.4 H (<1.2) POC Glucose (mg/dL) 169 H 152 H (75-99) mg/dL Iron (50-170) ug/dL TIBC (228-460) ug/dL Transferrin (204.0-354.0) mg/dL Vitamin B12 (200.0-944.0) pg/mL Microbiology - Last 24 Hours (Table) 08/02/21 06:08 Blood Culture - Preliminary Blood No Growth after 72 hours 07/30/21 17:00 Blood Culture - Preliminary Blood No Growth after 120 hours Assessment and Plan Assessment: 1. Altered mental status likely secondary from urinary tract infection 2. Urinary tract infection with elevated temperature and white blood cell count 3. History of atrial fibrillation maintained on Coumadin. Coumadin resumed. INR ordered 4. History of CVA 5. History of recent COVID-19 infection 6. History of hyperlipidemia 7. History of diabetes mellitus type 2 8. History of essential hypertension DVT prophylaxis Coumadin. GI prophylaxis Protonix No surgical intervention per orthopedic services Patient remains on IV antibiotics Tentative plans for DC home with palliative care per case management Patient has significant needs for medical equipment at home she requires these 2 people to get her out of bed to complete her daily activities, a Alexander lift is essential to help patient get out of bed otherwise she would be bed bound. Patient also requires alternating pressure and and pump due to pressure ulcers and need to relieve pressure on these areas
[2021-08-05] MEDS ORDERED: SODIUM FERRIC GLUCONAT-SUCROSE 125 MG in SODIUM CHLORIDE 0.9% 100 ML IVPB ONE (13:45)
[2021-08-05] MEDS: HYDROmorphone 0.5 MG/0.5 ML SYRINGE IVP PRN ×2 (14:19→20:18)
[2021-08-05 17:15] LABS: Glucose,Whole Blood 169 mg/dL (75-99)
[2021-08-05] MEDS: WARFARIN 2 MG TAB PO SCH (17:27)
[2021-08-05] MEDS ORDERED: WARFARIN 2 MG TAB PO ONE (18:00)
[2021-08-05 20:12] LABS: Glucose,Whole Blood 140 mg/dL (75-99)
[2021-08-05] MEDS: MAGNESIUM OXIDE 400 MG TAB PO SCH (20:17)
[2021-08-05] MEDS: ATORVASTATIN 10 MG TAB PO SCH (20:17)
[2021-08-05] MEDS: MONTELUKAST 10 MG TAB PO SCH (20:18)
--- NOTE | 2021-08-05 22:46 | P.PN ---
Subjective Progress Note Date: 08/05/21 Principal diagnosis: Bacteremia and urinary tract infection Patient is a 81-year-old female presented to the hospital mental status changes and this patient did have evidence of urinary tract infection and a positive blood culture with alpha hemolytic Streptococcus. On today's evaluation that is 08/05/2021, the patient remains to be afebrile, the patient is breathing comfortably on room air, the patient denies any chest pain shortness of breath and denies significant cough no abdominal pain and no diarrhea reported Objective - Vital Signs Vital signs: Vital Signs Temp 97.7 F 08/05/21 08:00 Pulse 68 08/05/21 08:00 Resp 22 08/05/21 08:00 BP 155/69 08/05/21 08:00 Pulse Ox 97 08/05/21 08:00 Intake & Output 08/04/21 08/05/21 08/05/21 18:59 06:59 18:59 Intake Total 118 Output Total 350 200 Balance -350 -200 118 Weight 72.575 kg Intake: Oral 118 Output: Urine 350 200 Other: Voiding Method Indwelling Catheter External Catheter - Exam GENERAL DESCRIPTION: An elderly female lying in bed in no distress RESPIRATORY SYSTEM: Unlabored breathing , decreased breath sounds at bases HEART: S1 S2 regular rate and rhythm , ABDOMEN: Soft , no tenderness EXTREMITIES: No edema feet - Labs CBC & Chem 7: 08/04/21 06:46 08/04/21 06:46 Labs: Abnormal Lab Results - Last 24 Hours (Table) 08/04/21 08/04/21 08/04/21 Range/Units 06:46 17:08 20:32 PT (9.0-12.0) sec INR (<1.2) POC Glucose (mg/dL) 298 H 169 H (75-99) mg/dL Iron 25 L (50-170) ug/dL TIBC 133 L (228-460) ug/dL Transferrin 95.3 L (204.0-354.0) mg/dL Vitamin B12 >2000.0 H (200.0-944.0) pg/mL 08/05/21 08/05/21 08/05/21 Range/Units 07:10 07:42 11:49 PT 24.4 H (9.0-12.0) sec INR 2.4 H (<1.2) POC Glucose (mg/dL) 152 H 203 H (75-99) mg/dL Iron (50-170) ug/dL TIBC (228-460) ug/dL Transferrin (204.0-354.0) mg/dL Vitamin B12 (200.0-944.0) pg/mL Microbiology - Last 24 Hours (Table) 08/02/21 06:08 Blood Culture - Preliminary Blood No Growth after 72 hours 07/30/21 17:00 Blood Culture - Preliminary Blood No Growth after 120 hours Assessment and Plan (1) UTI (urinary tract infection) Current Visit: Yes Status: Acute Code(s): N39.0 - URINARY TRACT INFECTION, SITE NOT SPECIFIED SNOMED Code(s): 11300285 Plan: 1patient with positive blood culture with alphahemolytic Streptococcus could be likely a skin contaminant , blood cultures repeat has been negative 2-patient did have a fever or more likely a UTI with urine culture finalized with Klebsiella that is sensitive to Rocephin 3-stage II sacral pressure ulcer no cellulitis 4-pt seems to have clinically improved and will continue with Rocephin 2 g daily while inpatient and plan to finish therapy with oral antibiotics 5- skin protective cream to the sacral area and keep the area of the pressure She Time with Patient: Less than 30
[2021-08-06 06:59] LABS: INR 2.7 (<1.2); Prothrombin Time 26.6 sec (9.0-12.0)
[2021-08-06 07:58] VITALS: RESP 18
[2021-08-06 08:19] LABS: Glucose,Whole Blood 155 mg/dL (75-99)
[2021-08-06] MEDS: CHOLECALCIFEROL 125 MCG (5000 IU) TABLET PO SCH (08:56)
[2021-08-06] MEDS: PANTOPRAZOLE 40 MG TABLET PO SCH (08:56)
[2021-08-06] MEDS: carvediloL 6.25 MG TAB PO SCH ×2 (08:56→17:42)
[2021-08-06] MEDS: VITAMIN E (DL,TOCOPHERYL ACET) 400 UNIT (180 MG) CAP PO SCH (08:56)
[2021-08-06] MEDS: FERROUS SULFATE 325 MG TAB PO SCH (08:56)
[2021-08-06] MEDS: INSULIN ASPART (NovoLOG) 100 UNIT/ML VIAL SQ SCH ×3 (08:57→17:42)
[2021-08-06] MEDS: CALCIUM CARBONATE 500 MG CHEWABLE PO SCH (08:57)
[2021-08-06] MEDS: CYANOCOBALAMIN 500 MCG TAB PO SCH (08:57)
[2021-08-06 09:20] LABS: African American GFR (CKD) 79.6 (60.0-200.0); Albumin 2.6 g/dL (3.8-4.9); Albumin/Globulin Ratio 0.81 (1.60-3.17); Anion Gap 12.4 mmol/L (10.00-18.00); BUN/Creat Ratio 17.13 Ratio (12.00-20.00); Blood Urea Nitrogen 13.7 mg/dL (9.0-27.0); Calcium 9.5 mg/dL (8.7-10.3); Carbon Dioxide 17.6 mmol/L (20.0-27.5); Globulin 3.2 g/dL (1.6-3.3); Non-African American GFR(CKD) 68.7 (60.0-200.0); Potassium 4.1 mmol/L (3.5-5.5); Total Bilirubin 0.4 mg/dL (0.30-1.20); Total Protein 5.8 g/dL (6.2-8.2)
[2021-08-06 09:58] LABS: Basophils # (A) 0.04 X 10*3/uL (0.00-0.10); Basophils % (A) 0.3 %; Eosinophils # (A) 0.32 X 10*3/uL (0.04-0.35); Eosinophils % (A) 2.4 %; HCT 26.5 % (37.2-46.3); HGB 7.8 g/dL (12.0-15.0); Immature Grans, Automated 2.2 %; Lymphocytes # (A) 1.92 X 10*3/uL (0.90-5.00); Lymphocytes % (A) 14.3 %; MCH 29.9 pg (27.0-32.0); MCHC 29.4 g/dL (32.0-37.0); MCV 101.5 fL (80.0-97.0); Mean Platelet Volume 12.4 fL (9.5-12.2); Monocytes % (A) 7.4 %; NRBC Per 100 WBC 0 /100 WBCS (0.0-0.0); Neutrophils # (A) 9.89 X 10*3/uL (1.80-7.70); Neutrophils % (A) 73.4 %; Platelet Count 275 X 10*3/uL (140-440); RBC 2.61 X 10*6/uL (4.10-5.20); RDW 17.6 % (11.5-14.5); WBC 13.46 X 10*3/uL (4.50-10.00)
--- NOTE | 2021-08-06 11:31 | P.DS ---
Providers Date of admission: 08/01/21 07:37 Expected date of discharge: 08/06/21 Attending physician: Tori Barney Consults: 07/31/21 10:06 Consult Physician Routine Consulting Provider: Isac Harris Consult Reason/Comments: elevated troponin Do you want consulting provider notified?: Yes 08/01/21 13:18 Consult Physician Routine Consulting Provider: Annelise Robb Consult Reason/Comments: positive blood culture Do you want consulting provider notified?: Yes 08/01/21 16:12 Consult Physician Routine Consulting Provider: Renee Orozco Consult Reason/Comments: hip pain Do you want consulting provider notified?: Yes Primary care physician: Miranda Thompson Hospital Course: Discharge diagnosis 1. Altered mental status likely secondary from urinary tract infection 2. Urinary tract infection with elevated temperature and white blood cell count 3. History of atrial fibrillation maintained on Coumadin. Coumadin resumed. INR ordered 4. History of CVA 5. History of recent COVID-19 infection 6. History of hyperlipidemia 7. History of diabetes mellitus type 2 8. History of essential hypertension Patient has significant needs for medical equipment at home she requires these 2 people to get her out of bed to complete her daily activities, a Alexander lift is essential to help patient get out of bed otherwise she would be bed bound. Patient also requires alternating pressure and and pump due to pressure ulcers and need to relieve pressure on these areas Hospital course This is an 81-year-old female patient of Dr. Thompson who presented with concerns of altered mental status changes. At this time patient is confused in bed history is obtained from medical record. According to record patient was noticed to have increased confusion and less responsive this a.m. by her son and caregiver. Patient was recently discharged possibly 1 month ago from [facility]. Patient does have past medical history of atrial fibrillation in which she is maintained on Coumadin, asthma, heart failure, CVA, diabetes mellitus, hyperlipidemia, hypertension, osteoarthritis and history of COVID-19 infection. Patient also has history of multiple urinary tract infections and ulcer to sacral area and right heel. Head CT was completed showing no acute intracranial process nonspecific white matter changes likely secondary to chronic microangiopathy. UA positive for urinary tract infection. Creatinine also slightly elevated at 1.31 and bun 41 potassium 5.4. Troponin also slightly elevated at 0.055. Patient with elevated temperature 102.6. At this time patient will be admitted patient started on IV Rocephin. Urine culture and blood cultures ordered. Repeat troponin ordered. Cardiology services will be consulted. Current INR 2.1 continue current dose of Coumadin. On 08/01/2021 patient was seen and examined on the medical floor she is alert and oriented in no apparent distress yesterday patient was having severe generalized pain, today she seems more calm and oriented, she was complaining of pain in the hips area, x-ray of bilateral hips was ordered, otherwise patient is denying any complaints at this time there is no fever or chills no headache or dizziness no chest pain no shortness of breath no cough no nausea or vomiting no abdominal pain no diarrhea and no urinary symptoms On 08/02/2021 patient is resting comfortably bed. Orthopedic services are following. CT of pelvis ordered. Discussion held with family about possible hospice care family to discuss among themselves for decision. This time patient denies chest pain or shortness breath. Patient denies nausea vomiting or diarrhea. Patient denies any urinary burning or frequency On 08/03/2021 patient is resting in bed. CT of pelvis completed. And to be reviewed by orthopedic services. Abdomen and bladder ultrasound completed showing no evidence of right hydronephrosis left kidney not fully visualized. At this time patient denies chest pain or shortness of breath. Patient denies nausea vomiting or diarrhea. Patient denies any urinary burning or frequency. Infectious disease and orthopedic services are following On 08/04/2021 patient is resting in bed. Patient remains on IV antibiotics. Per orthopedic services no plans for surgical intervention at this time. Tentative plans for possible DC home with home health care and palliative care. At this time patient denies chest pain or shortness of breath. Patient denies nausea vomiting or diarrhea. Patient denies any urinary burning or frequency On 08/05/2021 patient is alert and oriented 2. Case management following for DC plan home with palliative care. Patient remains on IV antibiotics. INR therapeutic at 2.4. At this time patient denies chest pain or shortness. Patient denies nausea vomiting or diarrhea. Patient denies any urinary burning or frequency On 08/06/2021 patient's alert and oriented 2. Patient follows commands denies any pain at this time. Spoke to case management plans frequent to be delivered to house today. Per ID recommendation patient may be discharged on oral antibiotics. At this time patient denies chest pain or shortness breath. Patient denies nausea vomiting or diarrhea. Patient denies any urinary burning or frequency. Patient Condition at Discharge: Stable Plan - Discharge Summary Discharge Rx Participant: No New Discharge Prescriptions: New Cefuroxime [Ceftin] 250 mg PO BID 7 Days #14 tab Continue Atorvastatin [Lipitor] 10 mg PO HS tab Montelukast [Singulair] 10 mg PO HS #30 tab Cyanocobalamin [Vitamin B-12] 500 - 1,000 mcg PO DAILY Cholecalciferol [Vitamin D3 (125 Mcg = 5000 Iu)] 125 mcg PO DAILY Acetaminophen Tab [Tylenol] 500 mg PO Q6H PRN PRN Reason: Pain Or Fever > 100.5 Vitamin E (Dl,Tocopheryl Acet) [Vitamin E (400 Iu = 180 mg)] 400 unit PO DAILY metFORMIN HCL 500 mg PO TID glipiZIDE [Glucotrol] 10 mg PO AC-BID Cranberry 4200 Mg 4,200 mg PO DAILY carvediloL [Coreg] 6.25 mg PO AC-BID tab Warfarin [Coumadin] 2 mg PO HS Magnesium 250 mg PO HS Ferrous Sulfate [Iron (65 MG Elemental)] 325 mg PO BID Calcium Carbonate [Calcium] 600 mg PO DAILY Discharge Medication List Atorvastatin [Lipitor] 10 mg PO HS tab 05/11/17 [Rx] Montelukast [Singulair] 10 mg PO HS #30 tab 02/03/19 [Rx] Acetaminophen Tab [Tylenol] 500 mg PO Q6H PRN 06/15/21 [History] Calcium Carbonate [Calcium] 600 mg PO DAILY 06/15/21 [History] Cholecalciferol [Vitamin D3 (125 Mcg = 5000 Iu)] 125 mcg PO DAILY 06/15/21 [History] Cranberry 4200 Mg 4,200 mg PO DAILY 06/15/21 [History] Cyanocobalamin [Vitamin B-12] 500 - 1,000 mcg PO DAILY 06/15/21 [History] Ferrous Sulfate [Iron (65 MG Elemental)] 325 mg PO BID 06/15/21 [History] Magnesium 250 mg PO HS 06/15/21 [History] Vitamin E (Dl,Tocopheryl Acet) [Vitamin E (400 Iu = 180 mg)] 400 unit PO DAILY 06/15/21 [History] glipiZIDE [Glucotrol] 10 mg PO AC-BID 06/15/21 [History] metFORMIN HCL 500 mg PO TID 06/15/21 [History] carvediloL [Coreg] 6.25 mg PO AC-BID tab 06/22/21 [Rx] Warfarin [Coumadin] 2 mg PO HS 07/30/21 [History] Cefuroxime [Ceftin] 250 mg PO BID 7 Days #14 tab 08/06/21 [Rx] Follow up Appointment(s)/Referral(s): Miranda Thompson MD [Primary Care Provider] - 1-2 days [facility], [NON-STAFF] - 1-2 Days Care,[facility] [NON-STAFF] - 1 Week Reji Castro DO [REFERRING] - 1 Week Activity/Diet/Wound Care/Special Instructions: Visiting Physician's can be contacted at [phone], please contact them to set up home physician's visits. Discharge/Stand Alone Forms: Who Do I Call?, Community Resources, Help In The Home, Personal Credit Union Examiner
[2021-08-06 11:37] LABS: Glucose,Whole Blood 177 mg/dL (75-99)
[2021-08-06] MEDS: SODIUM CHLORIDE 0.9% 1,000 ML IV SCH (14:06)
[2021-08-06 16:04] VITALS: BP 166/70; PULSE 70; TEMP 97.5
[2021-08-06 16:15] LABS: Glucose,Whole Blood 226 mg/dL (75-99)
[2021-08-06] MEDS: WARFARIN 2 MG TAB PO SCH (17:48)
== END 2021-08-06 19:27 | disposition home health service (06) | DRG 689 ==
LOC: EC 15:58 → 6NMEDSUR 21:13 → OBSVTOIN 08-01 07:37 → 6NMEDSUR 08-03 16:54 → 4SSUR 08-03 16:54
PROVIDERS: ADMIT Internal Medicine; ATTEND Internal Medicine
DX: N39.0 Urinary tract infection, site not specified (principal); G93.41 Metabolic encephalopathy; I13.0 Hypertensive heart and chronic kidney disease with heart failure and stage 1 through stage 4 chronic kidney disease, or unspecified chronic kidney disease; I42.9 Cardiomyopathy, unspecified; I48.21 Permanent atrial fibrillation; I50.32 Chronic diastolic (congestive) heart failure; N17.9 Acute kidney failure, unspecified; R78.81 Bacteremia; Z16.29 Resistance to other single specified antibiotic; F05 Delirium due to known physiological condition; E11.22 Type 2 diabetes mellitus with diabetic chronic kidney disease; E78.5 Hyperlipidemia, unspecified; J45.909 Unspecified asthma, uncomplicated; N18.30 Chronic kidney disease, stage 3 unspecified; Z79.01 Long term (current) use of anticoagulants; Z79.84 Long term (current) use of oral hypoglycemic drugs; Z79.899 Other long term (current) drug therapy; Z82.49 Family history of ischemic heart disease and other diseases of the circulatory system; Z86.16 Personal history of COVID-19; Z86.73 Personal history of transient ischemic attack (TIA), and cerebral infarction without residual deficits; Z87.440 Personal history of urinary (tract) infections; Z87.442 Personal history of urinary calculi; Z87.891 Personal history of nicotine dependence; Z96.653 Presence of artificial knee joint, bilateral; Z88.7 Allergy status to serum and vaccine; Z88.8 Allergy status to other drugs, medicaments and biological substances; B95.0 Streptococcus, group A, as the cause of diseases classified elsewhere; L89.609 Pressure ulcer of unspecified heel, unspecified stage; B96.1 Klebsiella pneumoniae [K. pneumoniae] as the cause of diseases classified elsewhere; R27.0 Ataxia, unspecified; L89.152 Pressure ulcer of sacral region, stage 2; I27.20 Pulmonary hypertension, unspecified; Z90.49 Acquired absence of other specified parts of digestive tract; Z91.012 Allergy to eggs; Z88.0 Allergy status to penicillin; Z88.2 Allergy status to sulfonamides; Z91.018 Allergy to other foods; I08.1 Rheumatic disorders of both mitral and tricuspid valves
CPT/HCPCS: 36415; 70450; 72192; 73521; 76770; 80053; 81001; 82607; 82746; 83540; 83550; 83605; 83735; 84145; 84443; 84484; 85025; 85610; 85652; 85730; 86140; 87040; 87077; 87086; 87186; 93005; 96365; 96375; 96376; 99285

== ENCOUNTER 2021-10-11 09:35 | Inpatient (IN) | payer MEDICARE ==
[2021-10-11] MEDS ORDERED: ONDANSETRON 4 MG/2 ML VIAL IVP STA (10:39)
[2021-10-11] MEDS ORDERED: SODIUM CHLORIDE 0.9% 1,000 ML IV STA (10:39)
[2021-10-11 11:04] LABS: Glucose,Whole Blood 100 mg/dL (75-99)
--- NOTE | 2021-10-11 11:04 | ED ---
General Adult HPI - General Chief complaint: Nausea/Vomiting/Diarrhea Stated complaint: AMS Time Seen by Provider: 10/11/21 10:20 Source: EMS Mode of arrival: EMS Limitations: no limitations - History of Present Illness Initial comments: 81-year-old female with past medical history of ARene fib on Coumadin, CVA, diabetes, recurrent urinary tract infections presents to the emergency department with altered mental status, vomiting and diarrhea. His Appetite and Provide the History. States That Yesterday the Patient Began Having Some Nausea and Vomiting. They Were Attempting to Give Her Something to Eat All Day Long However She Was Unable to Hold Anything down. When Wiping the Patient They Noted That There Was Some Blood on the Toilet Paper. She Does Have Recurrent UTIs with Sepsis and Therefore They Had Some Macrobid at Home Which They Began G iving Her. She Was Unable to Hold down Her Dose Yesterday. They Checked Her Sugars and They Have Been Low. This Morning They Had Improved However the Patient Became Altered. No Known Trauma. The Patient Has No Complaints However Is a Very Poor Historian. No Known Fevers. Denies Chest Pain or Short of Breath. No alleviating, precipitating or modifying factors - Related Data Home Medications Medication Instructions Recorded Confirmed Ferrous Sulfate [Iron (65 MG 325 mg PO BID 06/15/21 10/11/21 Elemental)] Magnesium 250 mg PO HS 06/15/21 10/11/21 Vitamin E (Dl,Tocopheryl Acet) 400 unit PO DAILY 06/15/21 10/11/21 [Vitamin E (400 Iu = 180 mg)] glipiZIDE [Glucotrol] 10 mg PO AC-BID 06/15/21 10/11/21 metFORMIN HCL 500 mg PO TID 06/15/21 10/11/21 Allopurinol [Zyloprim] 100 mg PO BID 10/11/21 10/11/21 Carvedilol [Coreg] 25 mg PO BID 10/11/21 10/11/21 Cranberry 1680mg 1,680 mg PO DAILY 10/11/21 10/11/21 Furosemide [Lasix] 40 mg PO DAILY 10/11/21 10/11/21 HYDROcodone/APAP 7.5-325MG [Thorndale 1 tab PO TID PRN 10/11/21 10/11/21 7.5-325] Lactulose [Constulose] 10 gm PO BID PRN 10/11/21 10/11/21 Losartan [Cozaar] 50 mg PO DIRECTED 10/11/21 10/11/21 Methenamine Hippurate [Hiprex] 1 gm PO BID 10/11/21 10/11/21 Ondansetron [Zofran] 4 mg PO Q8HR PRN 10/11/21 10/11/21 Warfarin Sodium 2.5 mg PO HS 10/11/21 10/11/21 Previous Rx's Medication Instructions Recorded Atorvastatin [Lipitor] 10 mg PO HS tab 05/11/17 Montelukast [Singulair] 10 mg PO HS #30 tab 02/03/19 Allergies Allergy/AdvReac Type Severity Reaction Status Date / Time influenza virus vaccine qs Allergy Unknown Unknown Verified 10/11/21 13:29 2016- (36 months up) [From Fluarix Quad 1503-3923 (PF)] aspirin Allergy Unknown Verified 10/11/21 13:29 egg Allergy Diarrhea Verified 10/11/21 13:29 Penicillins Allergy Rash/Hives Verified 10/11/21 13:29 radish Allergy Rash/Hives Verified 10/11/21 13:29 red dye Allergy Unknown Verified 10/11/21 13:29 Review of Systems ROS Statement: Those systems with pertinent positive or pertinent negative responses have been documented in the HPI. ROS Other: All systems not noted in ROS Statement are negative. Past Medical History Past Medical History: Atrial Fibrillation, Asthma, Heart Failure, CVA/TIA, Diabetes Mellitus, Hyperlipidemia, Hypertension, Osteoarthritis (OA), Pneumonia Additional Past Medical History / Comment(s): Pt was recently hospitalized at [facility] on 06/04/21 with UTI, bilateral multiple kidney stones and covid. Other hx:Covid + recently, but son states pt had been moved out of [facility]'s covid unit prior to her discharge from there yesterday. Other hx: Current R heel wound, document states buttock decub, CVAs-son states no deficits, bradycardia with pacemaker, pulmonary hypertension, NIDDM type II, multiple UTIs History of Any Multi-Drug Resistant Organisms: None Reported Past Surgical History: Appendectomy, Cholecystectomy, Orthopedic Surgery, Pacemaker, Tonsillectomy Additional Past Surgical History / Comment(s): Bilateral total knee replacements, bilateral carpal tunnel releases, colonoscopy, pacer placed at [facility]/date unknown Past Anesthesia/Blood Transfusion Reactions: No Reported Reaction Type of Cardiac Device: Permanent Pacemaker Device Placement Date:: cannot recall Past Psychological History: Depression Smoking Status: Former smoker Past Alcohol Use History: Unable to Obtain Past Drug Use History: Unable to Obtain - Past Family History Son(s) Family Medical History: Myocardial Infarction (SD) Additional Family Medical History / Comment(s): Son had a SD at the age of 47 yrs. Mother Family Medical History: Cancer Father Family Medical History: Cancer General Exam Limitations: altered mental status General appearance: lethargic Head exam: Present: atraumatic, normocephalic, normal inspection Eye exam: Present: normal appearance, PERRL, EOMI. Absent: scleral icterus, conjunctival injection, periorbital swelling ENT exam: Present: mucous membranes dry Neck exam: Present: normal inspection. Absent: tenderness, meningismus, lymphadenopathy Respiratory exam: Present: decreased breath sounds. Absent: respiratory distr ess Cardiovascular Exam: Present: regular rate, normal rhythm, normal heart sounds. Absent: systolic murmur, diastolic murmur, rubs, gallop, clicks GI/Abdominal exam: Present: soft Rectal exam: Present: normal inspection Extremities exam: Present: normal inspection, full ROM, normal capillary refill. Absent: tenderness, pedal edema, joint swelling, calf tenderness Neurological exam: Present: altered Psychiatric exam: Present: flat affect Skin exam: Present: warm, pallor Course Vital Signs 10/11/21 10/11/21 10/11/21 09:42 09:47 11:00 Temperature 96.2 F L Pulse Rate 66 72 Respiratory 18 16 Rate Blood Pressure 88/56 72/41 75/44 O2 Sat by Pulse 100 100 Oximetry 10/11/21 10/11/21 10/11/21 11:45 11:49 12:11 Temperature Pulse Rate 70 70 70 Respiratory 18 16 Rate Blood Pressure 102/54 96/52 O2 Sat by Pulse 96 98 Oximetry 10/11/21 10/11/21 10/11/21 12:20 12:35 12:39 Temperature Pulse Rate 70 70 70 Respiratory 16 Rate Blood Pressure 82/51 O2 Sat by Pulse 98 Oximetry 10/11/21 10/11/21 10/11/21 13:18 13:30 14:00 Temperature Pulse Rate 70 70 70 Respiratory 16 16 16 Rate Blood Pressure 82/49 79/49 91/51 O2 Sat by Pulse 98 99 97 Oximetry 10/11/21 10/11/21 10/11/21 14:30 15:02 15:30 Temperature Pulse Rate 70 70 68 Respiratory 16 16 16 Rate Blood Pressure 99/74 81/37 78/35 O2 Sat by Pulse 100 98 99 Oximetry 10/11/21 10/11/21 10/11/21 16:04 16:34 16:37 Temperature 97.4 F L Pulse Rate 69 70 70 Respiratory 16 16 Rate Blood Pressure 78/37 99/78 O2 Sat by Pulse 99 10 L 100 Oximetry 10/11/21 10/11/21 10/11/21 16:40 16:50 17:00 Temperature Pulse Rate 69 70 68 Respiratory 12 Rate Blood Pressure 99/78 96/83 96/83 O2 Sat by Pulse 100 100 100 Oximetry 10/11/21 10/11/21 10/11/21 17:10 17:30 17:40 Temperature Pulse Rate 69 72 70 Respiratory 10 L 8 L Rate Blood Pressure 83/56 45/25 43/31 O2 Sat by Pulse 100 Oximetry 10/11/21 10/11/21 17:50 18:00 Temperature Pulse Rate 70 Respiratory 16 Rate Blood Pressure 63/33 63/33 O2 Sat by Pulse 94 L Oximetry EKG Findings - EKG Comments: EKG Findings:: EKG done at 1050 demonstrates electronic pacemaker which captures appropriately. Complexes widened. Rate of 69. ID interval 72. QRS 157. QTC 493. Morphology is similar however QRS complexes more wide. Repeat EKG done at 1328 demonstrates continued electronic atrial pacemaker with a rate of 63. ID interval 130. QTC 303. QRS complexes more narrow and more similar in appearance with old ekg Procedures - Central Line Placement Left Femoral Consent Obtained: written consent Patient Placed on Monitor/Pulse Ox: Yes MD Prep: mask, gown, gloves Central Line Prep: Povidone-Iodine 1%, Chlorhexidine scrub Local Anesthesia Used: Lidocaine 1% Amount of Anesthesia Used (mls): 6 Ultrasound Used for Placement: Yes Central Line Lumen Inserted: triple Bloods Obtained for Lab: Yes Central Line Position: good blood return, all ports aspirated, flushed, capped, sutured in place with nylon Dressing Applied: Tegaderm Patient Tolerated Procedure: well, no complications - Sepsis Sepsis Focused Exam #1 Time Sepsis Criteria Met: 11:21 Sepsis Focused Exam Date: 10/11/21 Sepsis Focused Exam Time: 15:00 Sepsis Focused Exam Complete: Yes Vital Signs & RN Notes Reviewed: Yes Capillary Refill: > 2 Seconds: Fingers, Toes Peripheral Pulses: Weak: Radial (R), Radial (L), Dorsalis Pedis (R), Dorsalis Pedis (L) Skin Color: Ashen Respiratory Exam: normal lung sounds Cardiovascular Exam: regular rate Medical Decision Making - Medical Decision Making Upon arrival patient is placed into trauma 4. A thorough history and physical exam was performed. Patient's blood pressure is low. IV access is established and she is given a 2 L bolus of normal saline. Laboratory studies are conducted. 12-lead EKG is obtained which does demonstrate a wide complex rhythm. This is compared patient's previous. Laboratory studies do return and are positive for a potassium of 9.4. She is given calcium chloride 1 g, 2 A of sodium bicarb, 15 mg of albuterol, 10 units of insulin and an amp of dextrose. CO2 is 17. Creatinine 7.3. Loera is placed. Urine is sent for analysis which demonstrates many bacteria. Patient does have dark stool and therefore a call distant which is negative. OB and is negative. Chest x-ray demonstrates cardio medically without acute process. CT of the brain demonstrates chronic small vessel ischemia. Renal ultrasound demonstrate mild hydronephrosis. Nephrolithiasis on the left. Patient's only has mild improvement in her blood pressure and therefore central line is placed in the left groin and patient is started on levophed. Spoke with Dr. Barney in regards to the admission. I also spoke with Dr. Mayfield as the patient needs to go to the ICU. Focal Dr. Georges would like the patient on a bicarb drip. Repeat BMP ordered for 4:00. Patient pending a bed in the ICU in critical condition. Son would like the patient to be a full code - Lab Data Result diagrams: 10/11/21 10:51 10/11/21 16:56 Lab Results 10/11/21 10/11/21 10/11/21 Range/Units 10:51 10:51 10:51 WBC 14.7 H (3.8-10.6) k/uL RBC 3.23 L (3.80-5.40) m/uL Hgb 10.1 L (11.4-16.0) gm/dL Hct 33.7 L (34.0-46.0) % MCV 104.6 H (80.0-100.0) fL MCH 31.3 (25.0-35.0) pg MCHC 30.0 L (31.0-37.0) g/dL RDW 14.1 (11.5-15.5) % Plt Count 292 (150-450) k/uL MPV 10.1 Neutrophils % 86 % Lymphocytes % 11 % Monocytes % 2 % Eosinophils % 0 % Basophils % 0 % Neutrophils # 12.7 H (1.3-7.7) k/uL Lymphocytes # 1.7 (1.0-4.8) k/uL Monocytes # 0.3 (0-1.0) k/uL Eosinophils # 0.0 (0-0.7) k/uL Basophils # 0.0 (0-0.2) k/uL Hypochromasia Marked Macrocytosis Slight PT (9.0-12.0) sec INR (<1.2) APTT (22.0-30.0) sec Sodium 135 L (137-145) mmol/L Potassium 9.4 H* (3.5-5.1) mmol/L Chloride 103 (98-107) mmol/L Carbon Dioxide 7 L* (22-30) mmol/L Anion Gap 25 mmol/L BUN 113 H* (7-17) mg/dL Creatinine 7.33 H* (0.52-1.04) mg/dL Est GFR (CKD-EPI)AfAm 5 (>60 ml/min/1.73 sqM) Est GFR (CKD-EPI)NonAf 5 (>60 ml/min/1.73 sqM) Glucose 95 (74-99) mg/dL POC Glucose (mg/dL) (75-99) mg/dL POC Glu Procurement Technician ID Lactic Ac Sepsis Rflx Plasma Lactic Acid Giancarlo (0.7-2.0) mmol/L Calcium 11.0 H (8.4-10.2) mg/dL Total Bilirubin 0.5 (0.2-1.3) mg/dL AST 16 (14-36) U/L ALT 13 (4-34) U/L Alkaline Phosphatase 67 (38-126) U/L Troponin I (0.000-0.034) ng/mL Total Protein 6.5 (6.3-8.2) g/dL Albumin 3.3 L (3.5-5.0) g/dL Lipase 344 H (23-300) U/L Urine Color Yellow Urine Appearance Turbid H (Clear) Urine pH 6.5 (5.0-8.0) Ur Specific Twain 1.015 (1.001-1.035) Urine Protein 2+ H (Negative) Urine Glucose (UA) Negative (Negative) Urine Ketones Negative (Negative) Urine Blood Small H (Negative) Urine Nitrite Negative (Negative) Urine Bilirubin Negative (Negative) Urine Urobilinogen <2.0 (<2.0) mg/dL Ur Leukocyte Esterase Large H (Negative) Urine RBC 11 H (0-5) /hpf Urine WBC >182 H (0-5) /hpf Urine WBC Clumps Many H (None) /hpf Ur Squamous Epith Cells 30 H (0-4) /hpf Urine Bacteria Many H (None) /hpf Stool Occult Blood (Negative) Coronavirus (PCR) (Not Detectd) 10/11/21 10/11/21 10/11/21 Range/Units 10:51 10:51 10:51 WBC (3.8-10.6) k/uL RBC (3.80-5.40) m/uL Hgb (11.4-16.0) gm/dL Hct (34.0-46.0) % MCV (80.0-100.0) fL MCH (25.0-35.0) pg MCHC (31.0-37.0) g/dL RDW (11.5-15.5) % Plt Count (150-450) k/uL MPV Neutrophils % % Lymphocytes % % Monocytes % % Eosinophils % % Basophils % % Neutrophils # (1.3-7.7) k/uL Lymphocytes # (1.0-4.8) k/uL Monocytes # (0-1.0) k/uL Eosinophils # (0-0.7) k/uL Basophils # (0-0.2) k/uL Hypochromasia Macrocytosis PT 16.6 H (9.0-12.0) sec INR 1.6 H (<1.2) APTT 27.4 (22.0-30.0) sec Sodium (137-145) mmol/L Potassium (3.5-5.1) mmol/L Chloride (98-107) mmol/L Carbon Dioxide (22-30) mmol/L Anion Gap mmol/L BUN (7-17) mg/dL Creatinine (0.52-1.04) mg/dL Est GFR (CKD-EPI)AfAm (>60 ml/min/1.73 sqM) Est GFR (CKD-EPI)NonAf (>60 ml/min/1.73 sqM) Glucose (74-99) mg/dL POC Glucose (mg/dL) (75-99) mg/dL POC Glu Procurement Technician ID Lactic Ac Sepsis Rflx Plasma Lactic Acid Giancarlo 7.8 H* (0.7-2.0) mmol/L Calcium (8.4-10.2) mg/dL Total Bilirubin (0.2-1.3) mg/dL AST (14-36) U/L ALT (4-34) U/L Alkaline Phosphatase (38-126) U/L Troponin I 0.031 (0.000-0.034) ng/mL Total Protein (6.3-8.2) g/dL Albumin (3.5-5.0) g/dL Lipase (23-300) U/L Urine Color Urine Appearance (Clear) Urine pH (5.0-8.0) Ur Specific Twain (1.001-1.035) Urine Protein (Negative) Urine Glucose (UA) (Negative) Urine Ketones (Negative) Urine Blood (Negative) Urine Nitrite (Negative) Urine Bilirubin (Negative) Urine Urobilinogen (<2.0) mg/dL Ur Leukocyte Esterase (Negative) Urine RBC (0-5) /hpf Urine WBC (0-5) /hpf Urine WBC Clumps (None) /hpf Ur Squamous Epith Cells (0-4) /hpf Urine Bacteria (None) /hpf Stool Occult Blood (Negative) Coronavirus (PCR) (Not Detectd) 10/11/21 10/11/21 10/11/21 Range/Units 11:01 11:03 11:06 WBC (3.8-10.6) k/uL RBC (3.80-5.40) m/uL Hgb (11.4-16.0) gm/dL Hct (34.0-46.0) % MCV (80.0-100.0) fL MCH (25.0-35.0) pg MCHC (31.0-37.0) g/dL RDW (11.5-15.5) % Plt Count (150-450) k/uL MPV Neutrophils % % Lymphocytes % % Monocytes % % Eosinophils % % Basophils % % Neutrophils # (1.3-7.7) k/uL Lymphocytes # (1.0-4.8) k/uL Monocytes # (0-1.0) k/uL Eosinophils # (0-0.7) k/uL Basophils # (0-0.2) k/uL Hypochromasia Macrocytosis PT (9.0-12.0) sec INR (<1.2) APTT (22.0-30.0) sec Sodium (137-145) mmol/L Potassium (3.5-5.1) mmol/L Chloride (98-107) mmol/L Carbon Dioxide (22-30) mmol/L Anion Gap mmol/L BUN (7-17) mg/dL Creatinine (0.52-1.04) mg/dL Est GFR (CKD-EPI)AfAm (>60 ml/min/1.73 sqM) Est GFR (CKD-EPI)NonAf (>60 ml/min/1.73 sqM) Glucose (74-99) mg/dL POC Glucose (mg/dL) 100 H (75-99) mg/dL POC Glu Procurement Technician ID Avilez Roseline Lactic Ac Sepsis Rflx Plasma Lactic Acid Giancarlo (0.7-2.0) mmol/L Calcium (8.4-10.2) mg/dL Total Bilirubin (0.2-1.3) mg/dL AST (14-36) U/L ALT (4-34) U/L Alkaline Phosphatase (38-126) U/L Troponin I (0.000-0.034) ng/mL Total Protein (6.3-8.2) g/dL Albumin (3.5-5.0) g/dL Lipase (23-300) U/L Urine Color Urine Appearance (Clear) Urine pH (5.0-8.0) Ur Specific Twain (1.001-1.035) Urine Protein (Negative) Urine Glucose (UA) (Negative) Urine Ketones (Negative) Urine Blood (Negative) Urine Nitrite (Negative) Urine Bilirubin (Negative) Urine Urobilinogen (<2.0) mg/dL Ur Leukocyte Esterase (Negative) Urine RBC (0-5) /hpf Urine WBC (0-5) /hpf Urine WBC Clumps (None) /hpf Ur Squamous Epith Cells (0-4) /hpf Urine Bacteria (None) /hpf Stool Occult Blood Negative (Negative) Coronavirus (PCR) Not Detected (Not Detectd) 10/11/21 Range/Units 11:24 WBC (3.8-10.6) k/uL RBC (3.80-5.40) m/uL Hgb (11.4-16.0) gm/dL Hct (34.0-46.0) % MCV (80.0-100.0) fL MCH (25.0-35.0) pg MCHC (31.0-37.0) g/dL RDW (11.5-15.5) % Plt Count (150-450) k/uL MPV Neutrophils % % Lymphocytes % % Monocytes % % Eosinophils % % Basophils % % Neutrophils # (1.3-7.7) k/uL Lymphocytes # (1.0-4.8) k/uL Monocytes # (0-1.0) k/uL Eosinophils # (0-0.7) k/uL Basophils # (0-0.2) k/uL Hypochromasia Macrocytosis PT (9.0-12.0) sec INR (<1.2) APTT (22.0-30.0) sec Sodium (137-145) mmol/L Potassium (3.5-5.1) mmol/L Chloride (98-107) mmol/L Carbon Dioxide (22-30) mmol/L Anion Gap mmol/L BUN (7-17) mg/dL Creatinine (0.52-1.04) mg/dL Est GFR (CKD-EPI)AfAm (>60 ml/min/1.73 sqM) Est GFR (CKD-EPI)NonAf (>60 ml/min/1.73 sqM) Glucose (74-99) mg/dL POC Glucose (mg/dL) (75-99) mg/dL POC Glu Procurement Technician ID Lactic Ac Sepsis Rflx Y Plasma Lactic Acid Giancarlo (0.7-2.0) mmol/L Calcium (8.4-10.2) mg/dL Total Bilirubin (0.2-1.3) mg/dL AST (14-36) U/L ALT (4-34) U/L Alkaline Phosphatase (38-126) U/L Troponin I (0.000-0.034) ng/mL Total Protein (6.3-8.2) g/dL Albumin (3.5-5.0) g/dL Lipase (23-300) U/L Urine Color Urine Appearance (Clear) Urine pH (5.0-8.0) Ur Specific Twain (1.001-1.035) Urine Protein (Negative) Urine Glucose (UA) (Negative) Urine Ketones (Negative) Urine Blood (Negative) Urine Nitrite (Negative) Urine Bilirubin (Negative) Urine Urobilinogen (<2.0) mg/dL Ur Leukocyte Esterase (Negative) Urine RBC (0-5) /hpf Urine WBC (0-5) /hpf Urine WBC Clumps (None) /hpf Ur Squamous Epith Cells (0-4) /hpf Urine Bacteria (None) /hpf Stool Occult Blood (Negative) Coronavirus (PCR) (Not Detectd) Critical Care Time Critical Care Time: Yes Critical Care Time: 50 minutes Disposition Clinical Impression: QUINCY (acute kidney injury), UTI (urinary tract infection), Septic shock, Hyperkalemia, Lactic acidosis, Acute respiratory failure Disposition: ADMITTED IP TO THIS [facility] Condition: Critical Is patient prescribed a controlled substance at d/c from ED?: No Time of Disposition: 13:05 Decision to Admit Reason: Admit from EC Decision Date: 10/11/21 Decision Time: 13:05
[2021-10-11 11:05] LABS: Basophils % (A) 0 %; Eosinophils % (A) 0 %; HCT 33.7 % (34.0-46.0); HGB 10.1 gm/dL (11.4-16.0); Hypochromasia Marked; Lymphocytes # (A) 1.7 k/uL (1.0-4.8); Lymphocytes % (A) 11 %; MCH 31.3 pg (25.0-35.0); MCV 104.6 fL (80.0-100.0); Macrocytosis Slight; Mean Platelet Volume 10.1; Monocytes # (A) 0.3 k/uL (0-1.0); Monocytes % (A) 2 %; Neutrophils # (A) 12.7 k/uL (1.3-7.7); Neutrophils % (A) 86 %; Platelet Count 292 k/uL (150-450); RBC 3.23 m/uL (3.80-5.40); RDW 14.1 % (11.5-15.5); WBC 14.7 k/uL (3.8-10.6)
[2021-10-11 11:14] LABS: INR 1.6 (<1.2); Partial Thromboplastin Time 27.4 sec (22.0-30.0); Prothrombin Time 16.6 sec (9.0-12.0)
[2021-10-11 11:17] LABS: Albumin 3.3 g/dL (3.5-5.0); Appearance,Urine Turbid (Clear); Bacteria,Urine Many /hpf; Bilirubin,Urine Negative (Negative); Blood,Urine Small (Negative); Glucose,Urine (UA) Negative (Negative); Ketones,Urine Negative (Negative); Leukocyte Esterase,Urine Large (Negative); Nitrite,Urine Negative (Negative); PH, Urine 6.5 (5.0-8.0); Protein,Urine 2+ (Negative); RBC,Urine 11 /hpf (0-5); Squamous Epithelial Cell,Urine 30 /hpf (0-4); Total Bilirubin 0.5 mg/dL (0.2-1.3); Total Protein 6.5 g/dL (6.3-8.2); Urobilinogen,Urine <2.0 mg/dL (<2.0); WBC,Urine >182 /hpf (0-5)
[2021-10-11 11:20] LABS: Color,Urine Yellow; Specific Gravity,Urine 1.015 (1.001-1.035)
[2021-10-11 11:31] LABS: Potassium 9.4 mmol/L (3.5-5.1)
[2021-10-11] MEDS ORDERED: ALBUTEROL NEBULIZED 2.5 MG/3 ML INHALATION STA (11:32)
[2021-10-11] MEDS ORDERED: INSULIN REGULAR 100 UNIT/ML VIAL (IV) IV ONE ×2 (11:33→19:02)
[2021-10-11] MEDS ORDERED: CALCIUM CHLORIDE 100 MG/ML 10 ML SYRINGE IVP STA (11:33)
[2021-10-11] MEDS ORDERED: DEXTROSE 50% SYRINGE 50 ML IVP STA ×2 (11:33→19:02)
[2021-10-11] MEDS ORDERED: SODIUM CHLORIDE 0.9% 1,000 ML IV ONE (11:34)
[2021-10-11] MEDS ORDERED: SODIUM BICARB 8.4% 50 ML SYR (1 MEQ/ML) IV STA ×3 (11:34→19:02)
[2021-10-11] MEDS ORDERED: cefTRIAXone IN SWFI 1,000 MG/10 ML SYRINGE IVP STA (11:36)
--- NOTE | 2021-10-11 11:40 | XR ---
EXAMINATION TYPE: XR chest 2V DATE OF EXAM: 10/11/2021 COMPARISON: Chest x-ray June 15, 2021 HISTORY: Altered mental status and diarrhea. Weakness and vomiting. TECHNIQUE: Frontal and lateral views of the chest are obtained. FINDINGS: Persistent cardiomegaly with multi lead pacemaker. There is chronic parenchymal changes tomeka aterally without suspicious focal air space opacity, pleural effusion, or pneumothorax seen. The osse ous structures are demineralized. Degenerative change of the bilateral shoulders redemonstrated. IMPRESSION: Cardiomegaly without acute pulmonary process.
--- NOTE | 2021-10-11 11:48 | CT ---
EXAMINATION TYPE: CT brain wo con DATE OF EXAM: 10/11/2021 COMPARISON: CT brain 07/30/2021 HISTORY: Altered mental status. CT DLP: 1068.4 mGycm Automated exposure control for dose reduction was used. Helical imaging through the brain. FINDINGS: There is notable change. Areas of encephalomalacia in the left frontal lobe, left occipital region, i nferior left cerebellar hemisphere again noted. Periventricular white matter shows patchy low attenua tion. There is no hemorrhage or hydrocephalus. Cerebral vascular calcifications are noted. Hyperostos is frontalis interna changes are again seen. Calvarium is intact. Paranasal sinuses and mastoid air c ells as visualized are normal. Cranium is stable. IMPRESSION: CHRONIC SMALL VESSEL ISCHEMIC CHANGES, AGE RELATED ATROPHY, FOLLOW-UP INDICATED
[2021-10-11] MEDS ORDERED: ACETAMINOPHEN TAB 325 MG TAB PO PRN (13:05)
[2021-10-11] MEDS ORDERED: NALOXONE 0.4 MG/ML 1 ML VIAL IV PRN (13:05)
[2021-10-11] MEDS ORDERED: SODIUM CHLORIDE 0.9% 1,000 ML IV SCH (13:15)
--- NOTE | 2021-10-11 14:47 | US ---
EXAMINATION TYPE: US renals and bladder DATE OF EXAM: 10/11/2021 COMPARISON: US's dated 08/02/2021, & 06/19/2021 CLINICAL HISTORY: [email or web address]. EXAM MEASUREMENTS: Right Kidney: 11.3 x 4.7 x 5.5 cm Left Kidney: 8.7 x 3.9 x 4.7 cm Right Kidney: No hydronephrosis or masses seen, and there are some questionable prominent calyces Left Kidney: at least two echogenic areas with shadowing and twinkle artifact, largest measures 1.6 x 1.1 cm.. There are areas of caliectasis within the left kidney there is a mid lower pole. Bladder: not seen, patient has catheter Bilateral Jets seen: not seen, patient has catheter Cortical echogenicity is increased bilaterally. No masses are identified. The urinary bladder is ca theterized. Bilateral ureteral jets are not seen. IMPRESSION: Some mild hydronephrosis or caliectasis suspected as described, highly suspicious for nephrolithiasis on the left. Findings consistent with medical renal disease.
[2021-10-11] MEDS ORDERED: NOREPINEPHRINE 32 MG in SODIUM CHLORIDE 0.9% 218 ML IV SCH (15:00)
--- NOTE | 2021-10-11 15:36 | P.CNPUL ---
History of Present Illness Consult date: 10/11/21 Requesting physician: Tori Barney Reason for consult: other Chief complaint: Renal failure, hyperkalemia. History of present illness: Pulmonary consult dated 10/11/2021. 81-year-old female with past medical history of atrial fibrillation, CVA, diabetes, as well as recurrent urinary tract infections, presents to the emergency department on October 11, with mental status changes, vomiting, and alek rrhea. The patient sees a visiting physician. The patient was evaluated by Dr. Coleman, and was found to have hyperkalemia, with a potassium of 9.4, and renal failure. According to her son, the patient has never had that problem before. Because of that, and because of hypotension, requiring norepinephrine, the patient will be admitted to the intensive care unit. Currently, the patient's on norepinephrine at 0.05 mcg/kg/m. Medical history includes atrial fibrillation, asthma, heart failure, CVA, diabetes, hyperlipidemia, hypertension, and osteoarthritis. White count 14.7, hemoglobin 10.1, hematocrit 33.7, and platelet count 292,000. PT 16.6 with an INR 1.6. Sodium 135, potassium 9.4, chlorides 103, CO2 7, anion gap 25, BUN is 113 with a creatinine of 7.33. Lactic acid was initially 7.8, and repeat was 11.4. Calcium 11. Urine suggest a urinary tract infection. Leukocyte esterase was large positive. Nitrite was negative. There were greater than 182 WBCs, and many white blood clumps, and also many bacteria. Testing for cui virus was negative. Chest x-ray was positive only for cardiomegaly. CT of the brain was negative for anything acute. Review of Systems REVIEW OF SYSTEMS: CONSTITUTIONAL: [Negative.] NEUROLOGIC: Acute mental status changes. HEENT: [ Negative.] CARDIAC: Hypotension. PULMONARY: [Negative.] GI: Vomiting, diarrhea. : [Negative.] RHEUMATOLOGIC: [ Negative.] IMMUNOLOGIC: [ Negative.] ENDOCRINE: [Negative. ] DERMATOLOGIC: [Negative.] Past Medical History Past Medical History: Atrial Fibrillation, Asthma, Heart Failure, CVA/TIA, Diabetes Mellitus, Hyperlipidemia, Hypertension, Osteoarthritis (OA), Pneumonia Additional Past Medical History / Comment(s): Pt was recently hospitalized at [facility] on 06/04/21 with UTI, bilateral multiple kidney stones and covid. Other hx:Covid + recently, but son states pt had been moved out of [facility]'s covid un it prior to her discharge from there yesterday. Other hx: Current R heel wound, document states buttock decub, CVAs-son states no deficits, bradycardia with pacemaker, pulmonary hypertension, NIDDM type II, multiple UTIs History of Any Multi-Drug Resistant Organisms: None Reported Past Surgical History: Appendectomy, Cholecystectomy, Orthopedic Surgery, Pacemaker, Tonsillectomy Additional Past Surgical History / Comment(s): Bilateral total knee replacements, bilateral carpal tunnel releases, colonoscopy, pacer placed at [facility]/date unknown Past Anesthesia/Blood Transfusion Reactions: No Reported Reaction Type of Cardiac Device: Permanent Pacemaker Device Placement Date:: cannot recall Past Psychological History: Depression Smoking Status: Former smoker Past Alcohol Use History: Unable to Obtain Past Drug Use History: Unable to Obtain - Past Family History Son(s) Family Medical History: Myocardial Infarction (LA) Additional Family Medical History / Comment(s): Son had a LA at the age of 47 yrs. Mother Family Medical History: Cancer Father Family Medical History: Cancer Medications and Allergies Home Medications Medication Instructions Recorded Confirmed Type Atorvastatin [Lipitor] 10 mg PO HS tab 05/11/17 10/11/21 Rx Montelukast [Singulair] 10 mg PO HS #30 tab 02/03/19 10/11/21 Rx Ferrous Sulfate [Iron (65 MG 325 mg PO BID 06/15/21 10/11/21 History Elemental)] Magnesium 250 mg PO HS 06/15/21 10/11/21 History Vitamin E (Dl,Tocopheryl Acet) 400 unit PO DAILY 06/15/21 10/11/21 History [Vitamin E (400 Iu = 180 mg)] glipiZIDE [Glucotrol] 10 mg PO AC-BID 06/15/21 10/11/21 History metFORMIN HCL 500 mg PO TID 06/15/21 10/11/21 History Allopurinol [Zyloprim] 100 mg PO BID 10/11/21 10/11/21 History Carvedilol [Coreg] 25 mg PO BID 10/11/21 10/11/21 History Cranberry 1680mg 1,680 mg PO DAILY 10/11/21 10/11/21 History Furosemide [Lasix] 40 mg PO DAILY 10/11/21 10/11/21 History HYDROcodone/APAP 7.5-325MG [[place] 1 tab PO TID PRN 10/11/21 10/11/21 History 7.5-325] Lactulose [Constulose] 10 gm PO BID PRN 10/11/21 10/11/21 History Losartan [Cozaar] 50 mg PO DIRECTED 10/11/21 10/11/21 History Methenamine Hippurate [Hiprex] 1 gm PO BID 10/11/21 10/11/21 History Ondansetron [Zofran] 4 mg PO Q8HR PRN 10/11/21 10/11/21 History Warfarin Sodium 2.5 mg PO HS 10/11/21 10/11/21 History Allergies Allergy/AdvReac Type Severity Reaction Status Date / Time influenza virus vaccine qs Allergy Unknown Unknown Verified 10/11/21 13:29 2016- (36 months up) [From Fluarix Quad 1884-6423 (PF)] aspirin Allergy Unknown Verified 10/11/21 13:29 egg Allergy Diarrhea Verified 10/11/21 13:29 Penicillins Allergy Rash/Hives Verified 10/11/21 13:29 radish Allergy Rash/Hives Verified 10/11/21 13:29 red dye Allergy Unknown Verified 10/11/21 13:29 Physical Exam Osteopathic Statement: *. No significant issues noted on an osteopathic structural exam other than those noted in the History and Physical/Consult. Vitals: Vital Signs Temp Pulse Resp BP Pulse Ox 10/11/21 15:02 70 16 81/37 98 10/11/21 13:18 70 16 82/49 98 10/11/21 12:39 70 16 82/51 98 10/11/21 12:35 70 10/11/21 12:20 70 10/11/21 12:11 70 16 96/52 98 10/11/21 11:49 70 10/11/21 11:45 70 18 102/54 96 10/11/21 11:00 72 16 75/44 100 10/11/21 09:47 72/41 10/11/21 09:42 96.2 F L 66 18 88/56 100 Intake and Output 10/11/21 10/11/21 10/11/21 06:59 14:59 22:59 Other: Weight 58.967 kg No acute distress, currently on 2 L, with a saturation of 98%. HEENT examination is grossly unremarkable. Neck supple. Full range of motion. No adenopathy thyromegaly or neck vein distention. Cardiovascular examination reveals regular rhythm rate. S1-S2 normal. No S3 or S4. No discernible murmur noted. Heart sounds are distant. Heart rate 70 bpm. Lungs reveal clear breath sounds. Breath sounds are equal bilaterally. No adventitious lung sounds including wheezes rhonchi or crackles. Saturations 98% on 2 L. Abdomen soft bowel sounds are heard. No masses or tenderness. Extremities are intact. No cyanosis clubbing or edema. Skin is without rash or lesion. Neurologic examination is brief but nonfocal. Results - Laboratory Findings CBC and BMP: 10/11/21 10:51 10/11/21 10:51 PT/INR, D-dimer PT 16.6 sec (9.0-12.0) H 10/11/21 10:51 INR 1.6 (<1.2) H 10/11/21 10:51 Abnormal lab findings: Abnormal Labs 10/11/21 10/11/21 10/11/21 10:51 10:51 10:51 WBC 14.7 H RBC 3.23 L Hgb 10.1 L Hct 33.7 L MCV 104.6 H MCHC 30.0 L Neutrophils # 12.7 H PT INR Sodium 135 L Potassium 9.4 H* Carbon Dioxide 7 L* BUN 113 H* Creatinine 7.33 H* POC Glucose (mg/dL) Plasma Lactic Acid Giancarlo Calcium 11.0 H Albumin 3.3 L Lipase 344 H Urine Appearance Turbid H Urine Protein 2+ H Urine Blood Small H Ur Leukocyte Esterase Large H Urine RBC 11 H Urine WBC >182 H Urine WBC Clumps Many H Ur Squamous Epith Cells 30 H Urine Bacteria Many H 10/11/21 10/11/21 10/11/21 10:51 10:51 11:03 WBC RBC Hgb Hct MCV MCHC Neutrophils # PT 16.6 H INR 1.6 H Sodium Potassium Carbon Dioxide BUN Creatinine POC Glucose (mg/dL) 100 H Plasma Lactic Acid Giancarlo 7.8 H* Calcium Albumin Lipase Urine Appearance Urine Protein Urine Blood Ur Leukocyte Esterase Urine RBC Urine WBC Urine WBC Clumps Ur Squamous Epith Cells Urine Bacteria 10/11/21 14:30 WBC RBC Hgb Hct MCV MCHC Neutrophils # PT INR Sodium Potassium Carbon Dioxide BUN Creatinine POC Glucose (mg/dL) Plasma Lactic Acid Giancarlo 11.4 H* Calcium Albumin Lipase Urine Appearance Urine Protein Urine Blood Ur Leukocyte Esterase Urine RBC Urine WBC Urine WBC Clumps Ur Squamous Epith Cells Urine Bacteria - Diagnostic Findings Chest x-ray: image reviewed Assessment and Plan Assessment: Acute renal failure, with severe anion gap metabolic acidosis, and hyperkalemia. Lactic acidemia. Acute urinary tract infection. Hypotension, likely secondary to sepsis, from urinary tract infection. History of atrial fibrillation. History of hyperlipidemia. Status post pacemaker insertion for bradycardia. History of diabetes mellitus. History of hypertension. History of asthma. History of heart failure. History of CVA. History of osteoarthritis. History of kidney stones. Prior history of coronavirus infection. Plan: Plan dated 10/11/2021. The patient is admitted to the intensive care unit, primarily because of her severe metabolic acidosis, hyperkalemia, EKG changes, hypotension, and renal failure. The patient was evaluated down in the emergency room, trauma room 4. I did speak to the family. The patient is typically followed by a visiting physician. At the right groin central line was placed by me ER physician. I did talk to the charge nurse in the ICU and gave her a brief report. Prognosis is guarded. For the time being, the patient is a full code. Additional recommendations and suggestions are forthcoming. We'll continue to follow the patient make recommendations where appropriate. Prognosis is certainly guarded. Time with Patient: Greater than 30
[2021-10-11] MEDS ORDERED: DEXTROSE 5% IN WATER 1,000 ML with SODIUM BICARB (1 MEQ/ML) 150 ML IV SCH (16:00)
[2021-10-11 16:40] VITALS: TEMP 97.4
--- NOTE | 2021-10-11 17:52 | P.HPIM ---
History of Present Illness H&P Date: 10/11/21 Moriah Tong, is an 81-year-old female, patient of Dr Thompson, who presented to [facility] emergency room with a chief complaint of worsening mental status poor oral intake vomiting and diarrhea. Patient has a known history of recurrent urinary tract infection, when she started feeling sick, her son started giving her antibiotic that she had at home however her condition continued to worsen and he decided to bring her to emergency room. He was evaluated in the emergency room vital examination on presentation revealed a temperature of 96.2 pulse 66 respiration 18 blood pressure 72/41 pulse ox 100% on room air Laboratory data revealed a white blood count of 14.7 hemoglobin 10.1 platelet count 292 sodium 135 potassium 9.4 chloride 103 CO2 7 BUN 113 creatinine 7.33 lactic acid was elevated at 7.8, urine analysis revealed evidence of urinary tract infection stool occult blood was negative, COVID-19 was negative. Testing in the emergency room revealed chest x-ray done in the emergency room revealed evidence of cardiomegaly without acute pulmonary process, computed roxy graphy scan of the brain revealed chronic small vessel ischemic changes, EKG revealed electronic ventricular pacemaker with ST elevation in anterior leads. Patient was admitted to ICU for further evaluation and treatment, she was given IV fluid boluses in the emergency room and was started on norepinephrine for blood pressure support, she was also given 1 dose of IV Rocephin, and was also given bicarb IV. Past Medical History Past Medical History: Atrial Fibrillation, Asthma, Heart Failure, CVA/TIA, Diabetes Mellitus, Hyperlipidemia, Hypertension, Osteoarthritis (OA), Pneumonia Additional Past Medical History / Comment(s): Pt was recently hospitalized at [facility] on 06/04/21 with UTI, bilateral multiple kidney stones and covid. Other hx:Covid + recently, but son states pt had been moved out of [facility]'s covid unit prior to her discharge from there yesterday. Other hx: Current R heel wound, document states buttock decub, CVAs-son states no deficits, bradycardia with pacemaker, pulmonary hypertension, NIDDM type II, multiple UTIs History of Any Multi-Drug Resistant Organisms: None Reported Past Surgical History: Appendectomy, Cholecystectomy, Orthopedic Surgery, Pac emaker, Tonsillectomy Additional Past Surgical History / Comment(s): Bilateral total knee replacements, bilateral carpal tunnel releases, colonoscopy, pacer placed at [facility]/date unknown Past Anesthesia/Blood Transfusion Reactions: No Reported Reaction Type of Cardiac Device: Permanent Pacemaker Device Placement Date:: cannot recall Past Psychological History: Depression Smoking Status: Former smoker Past Alcohol Use History: Unable to Obtain Past Drug Use History: Unable to Obtain - Past Family History Son(s) Family Medical History: Myocardial Infarction (AL) Additional Family Medical History / Comment(s): Son had a AL at the age of 47 yrs. Mother Family Medical History: Cancer Father Family Medical History: Cancer Medications and Allergies Home Medications Medication Instructions Recorded Confirmed Type Atorvastatin [Lipitor] 10 mg PO HS tab 05/11/17 10/11/21 Rx Montelukast [Singulair] 10 mg PO HS #30 tab 02/03/19 10/11/21 Rx Ferrous Sulfate [Iron (65 MG 325 mg PO BID 06/15/21 10/11/21 History Elemental)] Magnesium 250 mg PO HS 06/15/21 10/11/21 History Vitamin E (Dl,Tocopheryl Acet) 400 unit PO DAILY 06/15/21 10/11/21 History [Vitamin E (400 Iu = 180 mg)] glipiZIDE [Glucotrol] 10 mg PO AC-BID 06/15/21 10/11/21 History metFORMIN HCL 500 mg PO TID 06/15/21 10/11/21 History Allopurinol [Zyloprim] 100 mg PO BID 10/11/21 10/11/21 History Carvedilol [Coreg] 25 mg PO BID 10/11/21 10/11/21 History Cranberry 1680mg 1,680 mg PO DAILY 10/11/21 10/11/21 History Furosemide [Lasix] 40 mg PO DAILY 10/11/21 10/11/21 History HYDROcodone/APAP 7.5-325MG [[place] 1 tab PO TID PRN 10/11/21 10/11/21 History 7.5-325] Lactulose [Constulose] 10 gm PO BID PRN 10/11/21 10/11/21 History Losartan [Cozaar] 50 mg PO DIRECTED 10/11/21 10/11/21 History Methenamine Hippurate [Hiprex] 1 gm PO BID 10/11/21 10/11/21 History Ondansetron [Zofran] 4 mg PO Q8HR PRN 10/11/21 10/11/21 History Warfarin Sodium 2.5 mg PO HS 10/11/21 10/11/21 History Allergies Allergy/AdvReac Type Severity Reaction Status Date / Time influenza virus vaccine qs Allergy Unknown Unknown Verified 10/11/21 13:29 2016- (36 months up) [From Fluarix Quad 1369-3230 (PF)] aspirin Allergy Unknown Verified 10/11/21 13:29 egg Allergy Diarrhea Verified 10/11/21 13:29 Penicillins Allergy Rash/Hives Verified 10/11/21 13:29 radish Allergy Rash/Hives Verified 10/11/21 13:29 red dye Allergy Unknown Verified 10/11/21 13:29 Physical Exam Vitals: Vital Signs Temp Pulse Resp BP Pulse Ox 10/11/21 16:34 97.4 F L 70 16 99/78 10 L 10/11/21 16:04 69 16 78/37 99 10/11/21 15:30 68 16 78/35 99 10/11/21 15:02 70 16 81/37 98 10/11/21 14:30 70 16 99/74 100 10/11/21 14:00 70 16 91/51 97 10/11/21 13:30 70 16 79/49 99 10/11/21 13:18 70 16 82/49 98 10/11/21 12:39 70 16 82/51 98 10/11/21 12:35 70 10/11/21 12:20 70 10/11/21 12:11 70 16 96/52 98 10/11/21 11:49 70 10/11/21 11:45 70 18 102/54 96 10/11/21 11:00 72 16 75/44 100 10/11/21 09:47 72/41 10/11/21 09:42 96.2 F L 66 18 88/56 100 Intake and Output 10/11/21 10/11/21 10/11/21 06:59 14:59 22:59 Intake Total 3.050 Balance 3.050 Intake: Intake, IV Titration 3.050 Amount Norepinephrine 32 mg In 3.050 Sodium Chloride 0.9% 218 ml @ 0.05 MCG/KG/MIN 1. 382 mls/hr IV .Q24H [facility] Rx#:[id number] Other: Weight 58.967 kg In general patient is alert confused in no apparent distress HEENT head normocephalic and atraumatic Neck is supple no JVD no goiter no lymphadenopathy no carotid bruit Chest examination is clear to auscultation no crackles no wheezing Cardiac exam reveals regular heart sounds S1 and S2 no gallops no murmurs Abdomen is soft nontender no organomegaly with normal bowel sounds Extremity exam reveals no edema no cyanosis or clubbing Neurological examination reveals no gross focal deficits Results CBC & Chem 7: 10/11/21 10:51 10/11/21 10:51 Labs: Abnormal Lab Results - Last 24 Hours (Table) 10/11/21 10/11/21 10/11/21 Range/Units 10:51 10:51 10:51 WBC 14.7 H (3.8-10.6) k/uL RBC 3.23 L (3.80-5.40) m/uL Hgb 10.1 L (11.4-16.0) gm/dL Hct 33.7 L (34.0-46.0) % MCV 104.6 H (80.0-100.0) fL MCHC 30.0 L (31.0-37.0) g/dL Neutrophils # 12.7 H (1.3-7.7) k/uL PT (9.0-12.0) sec INR (<1.2) Sodium 135 L (137-145) mmol/L Potassium 9.4 H* (3.5-5.1) mmol/L Carbon Dioxide 7 L* (22-30) mmol/L BUN 113 H* (7-17) mg/dL Creatinine 7.33 H* (0.52-1.04) mg/dL POC Glucose (mg/dL) (75-99) mg/dL Plasma Lactic Acid Giancarlo (0.7-2.0) mmol/L Calcium 11.0 H (8.4-10.2) mg/dL Albumin 3.3 L (3.5-5.0) g/dL Lipase 344 H (23-300) U/L Urine Appearance Turbid H (Clear) Urine Protein 2+ H (Negative) Urine Blood Small H (Negative) Ur Leukocyte Esterase Large H (Negative) Urine RBC 11 H (0-5) /hpf Urine WBC >182 H (0-5) /hpf Urine WBC Clumps Many H (None) /hpf Ur Squamous Epith Cells 30 H (0-4) /hpf Urine Bacteria Many H (None) /hpf 10/11/21 10/11/21 10/11/21 Range/Units 10:51 10:51 11:03 WBC (3.8-10.6) k/uL RBC (3.80-5.40) m/uL Hgb (11.4-16.0) gm/dL Hct (34.0-46.0) % MCV (80.0-100.0) fL MCHC (31.0-37.0) g/dL Neutrophils # (1.3-7.7) k/uL PT 16.6 H (9.0-12.0) sec INR 1.6 H (<1.2) Sodium (137-145) mmol/L Potassium (3.5-5.1) mmol/L Carbon Dioxide (22-30) mmol/L BUN (7-17) mg/dL Creatinine (0.52-1.04) mg/dL POC Glucose (mg/dL) 100 H (75-99) mg/dL Plasma Lactic Acid Giancarlo 7.8 H* (0.7-2.0) mmol/L Calcium (8.4-10.2) mg/dL Albumin (3.5-5.0) g/dL Lipase (23-300) U/L Urine Appearance (Clear) Urine Protein (Negative) Urine Blood (Negative) Ur Leukocyte Esterase (Negative) Urine RBC (0-5) /hpf Urine WBC (0-5) /hpf Urine WBC Clumps (None) /hpf Ur Squamous Epith Cells (0-4) /hpf Urine Bacteria (None) /hpf 10/11/21 Range/Units 14:30 WBC (3.8-10.6) k/uL RBC (3.80-5.40) m/uL Hgb (11.4-16.0) gm/dL Hct (34.0-46.0) % MCV (80.0-100.0) fL MCHC (31.0-37.0) g/dL Neutrophils # (1.3-7.7) k/uL PT (9.0-12.0) sec INR (<1.2) Sodium (137-145) mmol/L Potassium (3.5-5.1) mmol/L Carbon Dioxide (22-30) mmol/L BUN (7-17) mg/dL Creatinine (0.52-1.04) mg/dL POC Glucose (mg/dL) (75-99) mg/dL Plasma Lactic Acid Giancarlo 11.4 H* (0.7-2.0) mmol/L Calcium (8.4-10.2) mg/dL Albumin (3.5-5.0) g/dL Lipase (23-300) U/L Urine Appearance (Clear) Urine Protein (Negative) Urine Blood (Negative) Ur Leukocyte Esterase (Negative) Urine RBC (0-5) /hpf Urine WBC (0-5) /hpf Urine WBC Clumps (None) /hpf Ur Squamous Epith Cells (0-4) /hpf Urine Bacteria (None) /hpf Microbiology - Last 24 Hours (Table) 10/11/21 10:51 Urine Culture - Preliminary Urine,Voided Assessment and Plan Plan: Sepsis, with septic shock, as evidenced by urinary tract infection, leukocytosis, hypotension, and elevated lactic acid. Acute renal failure, likely related to hypotension, prerenal azotemia and acute tubular necrosis Severe hyperkalemia Severe metabolic acidosis Underlying history of atrial fibrillation Underlying history of hypertension Underlying history of congestive heart failure Underlying history of diabetes mellitus Previous history of pacemaker placement for bradycardia Previous history of coughing 19 infection Previous history of stroke Previous history of osteoarthritis At this time patient is admitted to intensive care unit She was started on IV fluid, IV Rocephin, and norepinephrine drip for blood pressures or Home medications reviewed and are mostly on hold due to hypotension, and severe kidney injury Will resume Coumadin and recheck INR in a.m. Consultation for pulmonary critical care, nephrology, and infectious disease were initiated Blood culture and urine culture were ordered For DVT prophylaxis patient is on Coumadin Will follow closely prognosis is guarded
--- NOTE | 2021-10-11 18:19 | ED ---
Medical Decision Making - Medical Decision Making Patient did have a persistent decline in her blood pressure in spite of aggressive management she initially did become less and finally unresponsive with apnea. After discussion briefly with several family members or present the patient is a full code patient did require oral tracheal intubation was intubated by me please see his note. There was 4 minutes of CPR performed as the patient was pulseless when epinephrine was given and ROSC was obtained. Patient had become more responsive after stabilization. Blood pressure improved though the patient is leaving with that was increased. Discussed the findings with family members also with Dr. Mayfield. X-ray did show the tube to be right at the ned was withdrawn appropriately. - Lab Data Result diagrams: 10/11/21 10:51 10/11/21 16:56 Lab Results 10/11/21 10/11/21 10/11/21 Range/Units 10:51 10:51 10:51 WBC 14.7 H (3.8-10.6) k/uL RBC 3.23 L (3.80-5.40) m/uL Hgb 10.1 L (11.4-16.0) gm/dL Hct 33.7 L (34.0-46.0) % MCV 104.6 H (80.0-100.0) fL MCH 31.3 (25.0-35.0) pg MCHC 30.0 L (31.0-37.0) g/dL RDW 14.1 (11.5-15.5) % Plt Count 292 (150-450) k/uL MPV 10.1 Neutrophils % 86 % Lymphocytes % 11 % Monocytes % 2 % Eosinophils % 0 % Basophils % 0 % Neutrophils # 12.7 H (1.3-7.7) k/uL Lymphocytes # 1.7 (1.0-4.8) k/uL Monocytes # 0.3 (0-1.0) k/uL Eosinophils # 0.0 (0-0.7) k/uL Basophils # 0.0 (0-0.2) k/uL Hypochromasia Marked Macrocytosis Slight PT (9.0-12.0) sec INR (<1.2) APTT (22.0-30.0) sec Sodium 135 L (137-145) mmol/L Potassium 9.4 H* (3.5-5.1) mmol/L Chloride 103 (98-107) mmol/L Carbon Dioxide 7 L* (22-30) mmol/L Anion Gap 25 mmol/L BUN 113 H* (7-17) mg/dL Creatinine 7.33 H* (0.52-1.04) mg/dL Est GFR (CKD-EPI)AfAm 5 (>60 ml/min/1.73 sqM) Est GFR (CKD-EPI)NonAf 5 (>60 ml/min/1.73 sqM) Glucose 95 (74-99) mg/dL POC Glucose (mg/dL) (75-99) mg/dL POC 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 Lactic Ac Sepsis Rflx Plasma Lactic Acid Giancarlo (0.7-2.0) mmol/L Calcium 11.0 H (8.4-10.2) mg/dL Total Bilirubin 0.5 (0.2-1.3) mg/dL AST 16 (14-36) U/L ALT 13 (4-34) U/L Alkaline Phosphatase 67 (38-126) U/L Troponin I (0.000-0.034) ng/mL Total Protein 6.5 (6.3-8.2) g/dL Albumin 3.3 L (3.5-5.0) g/dL Lipase 344 H (23-300) U/L Urine Color Yellow Urine Appearance Turbid H (Clear) Urine pH 6.5 (5.0-8.0) Ur Specific Winston 1.015 (1.001-1.035) Urine Protein 2+ H (Negative) Urine Glucose (UA) Negative (Negative) Urine Ketones Negative (Negative) Urine Blood Small H (Negative) Urine Nitrite Negative (Negative) Urine Bilirubin Negative (Negative) Urine Urobilinogen <2.0 (<2.0) mg/dL Ur Leukocyte Esterase Large H (Negative) Urine RBC 11 H (0-5) /hpf Urine WBC >182 H (0-5) /hpf Urine WBC Clumps Many H (None) /hpf Ur Squamous Epith Cells 30 H (0-4) /hpf Urine Bacteria Many H (None) /hpf Stool Occult Blood (Negative) Coronavirus (PCR) (Not Detectd) 10/11/21 10/11/21 10/11/21 Range/Units 10:51 10:51 10:51 WBC (3.8-10.6) k/uL RBC (3.80-5.40) m/uL Hgb (11.4-16.0) gm/dL Hct (34.0-46.0) % MCV (80.0-100.0) fL MCH (25.0-35.0) pg MCHC (31.0-37.0) g/dL RDW (11.5-15.5) % Plt Count (150-450) k/uL MPV Neutrophils % % Lymphocytes % % Monocytes % % Eosinophils % % Basophils % % Neutrophils # (1.3-7.7) k/uL Lymphocytes # (1.0-4.8) k/uL Monocytes # (0-1.0) k/uL Eosinophils # (0-0.7) k/uL Basophils # (0-0.2) k/uL Hypochromasia Macrocytosis PT 16.6 H (9.0-12.0) sec INR 1.6 H (<1.2) APTT 27.4 (22.0-30.0) sec Sodium (137-145) mmol/L Potassium (3.5-5.1) mmol/L Chloride (98-107) mmol/L Carbon Dioxide (22-30) mmol/L Anion Gap mmol/L BUN (7-17) mg/dL Creatinine (0.52-1.04) mg/dL Est GFR (CKD-EPI)AfAm (>60 ml/min/1.73 sqM) Est GFR (CKD-EPI)NonAf (>60 ml/min/1.73 sqM) Glucose (74-99) mg/dL POC Glucose (mg/dL) (75-99) mg/dL POC 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 Lactic Ac Sepsis Rflx Plasma Lactic Acid Giancarlo 7.8 H* (0.7-2.0) mmol/L Calcium (8.4-10.2) mg/dL Total Bilirubin (0.2-1.3) mg/dL AST (14-36) U/L ALT (4-34) U/L Alkaline Phosphatase (38-126) U/L Troponin I 0.031 (0.000-0.034) ng/mL Total Protein (6.3-8.2) g/dL Albumin (3.5-5.0) g/dL Lipase (23-300) U/L Urine Color Urine Appearance (Clear) Urine pH (5.0-8.0) Ur Specific Winston (1.001-1.035) Urine Protein (Negative) Urine Glucose (UA) (Negative) Urine Ketones (Negative) Urine Blood (Negative) Urine Nitrite (Negative) Urine Bilirubin (Negative) Urine Urobilinogen (<2.0) mg/dL Ur Leukocyte Esterase (Negative) Urine RBC (0-5) /hpf Urine WBC (0-5) /hpf Urine WBC Clumps (None) /hpf Ur Squamous Epith Cells (0-4) /hpf Urine Bacteria (None) /hpf Stool Occult Blood (Negative) Coronavirus (PCR) (Not Detectd) 10/11/21 10/11/21 10/11/21 Range/Units 11:01 11:03 11:06 WBC (3.8-10.6) k/uL RBC (3.80-5.40) m/uL Hgb (11.4-16.0) gm/dL Hct (34.0-46.0) % MCV (80.0-100.0) fL MCH (25.0-35.0) pg MCHC (31.0-37.0) g/dL RDW (11.5-15.5) % Plt Count (150-450) k/uL MPV Neutrophils % % Lymphocytes % % Monocytes % % Eosinophils % % Basophils % % Neutrophils # (1.3-7.7) k/uL Lymphocytes # (1.0-4.8) k/uL Monocytes # (0-1.0) k/uL Eosinophils # (0-0.7) k/uL Basophils # (0-0.2) k/uL Hypochromasia Macrocytosis PT (9.0-12.0) sec INR (<1.2) APTT (22.0-30.0) sec Sodium (137-145) mmol/L Potassium (3.5-5.1) mmol/L Chloride (98-107) mmol/L Carbon Dioxide (22-30) mmol/L Anion Gap mmol/L BUN (7-17) mg/dL Creatinine (0.52-1.04) mg/dL Est GFR (CKD-EPI)AfAm (>60 ml/min/1.73 sqM) Est GFR (CKD-EPI)NonAf (>60 ml/min/1.73 sqM) Glucose (74-99) mg/dL POC Glucose (mg/dL) 100 H (75-99) mg/dL POC 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 Roseline Avilez Lactic Ac Sepsis Rflx Plasma Lactic Acid Giancarlo (0.7-2.0) mmol/L Calcium (8.4-10.2) mg/dL Total Bilirubin (0.2-1.3) mg/dL AST (14-36) U/L ALT (4-34) U/L Alkaline Phosphatase (38-126) U/L Troponin I (0.000-0.034) ng/mL Total Protein (6.3-8.2) g/dL Albumin (3.5-5.0) g/dL Lipase (23-300) U/L Urine Color Urine Appearance (Clear) Urine pH (5.0-8.0) Ur Specific Winston (1.001-1.035) Urine Protein (Negative) Urine Glucose (UA) (Negative) Urine Ketones (Negative) Urine Blood (Negative) Urine Nitrite (Negative) Urine Bilirubin (Negative) Urine Urobilinogen (<2.0) mg/dL Ur Leukocyte Esterase (Negative) Urine RBC (0-5) /hpf Urine WBC (0-5) /hpf Urine WBC Clumps (None) /hpf Ur Squamous Epith Cells (0-4) /hpf Urine Bacteria (None) /hpf Stool Occult Blood Negative (Negative) Coronavirus (PCR) Not Detected (Not Detectd) 10/11/21 Range/Units 11:24 WBC (3.8-10.6) k/uL RBC (3.80-5.40) m/uL Hgb (11.4-16.0) gm/dL Hct (34.0-46.0) % MCV (80.0-100.0) fL MCH (25.0-35.0) pg MCHC (31.0-37.0) g/dL RDW (11.5-15.5) % Plt Count (150-450) k/uL MPV Neutrophils % % Lymphocytes % % Monocytes % % Eosinophils % % Basophils % % Neutrophils # (1.3-7.7) k/uL Lymphocytes # (1.0-4.8) k/uL Monocytes # (0-1.0) k/uL Eosinophils # (0-0.7) k/uL Basophils # (0-0.2) k/uL Hypochromasia Macrocytosis PT (9.0-12.0) sec INR (<1.2) APTT (22.0-30.0) sec Sodium (137-145) mmol/L Potassium (3.5-5.1) mmol/L Chloride (98-107) mmol/L Carbon Dioxide (22-30) mmol/L Anion Gap mmol/L BUN (7-17) mg/dL Creatinine (0.52-1.04) mg/dL Est GFR (CKD-EPI)AfAm (>60 ml/min/1.73 sqM) Est GFR (CKD-EPI)NonAf (>60 ml/min/1.73 sqM) Glucose (74-99) mg/dL POC Glucose (mg/dL) (75-99) mg/dL POC 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 Lactic Ac Sepsis Rflx Y Plasma Lactic Acid Giancarlo (0.7-2.0) mmol/L Calcium (8.4-10.2) mg/dL Total Bilirubin (0.2-1.3) mg/dL AST (14-36) U/L ALT (4-34) U/L Alkaline Phosphatase (38-126) U/L Troponin I (0.000-0.034) ng/mL Total Protein (6.3-8.2) g/dL Albumin (3.5-5.0) g/dL Lipase (23-300) U/L Urine Color Urine Appearance (Clear) Urine pH (5.0-8.0) Ur Specific Winston (1.001-1.035) Urine Protein (Negative) Urine Glucose (UA) (Negative) Urine Ketones (Negative) Urine Blood (Negative) Urine Nitrite (Negative) Urine Bilirubin (Negative) Urine Urobilinogen (<2.0) mg/dL Ur Leukocyte Esterase (Negative) Urine RBC (0-5) /hpf Urine WBC (0-5) /hpf Urine WBC Clumps (None) /hpf Ur Squamous Epith Cells (0-4) /hpf Urine Bacteria (None) /hpf Stool Occult Blood (Negative) Coronavirus (PCR) (Not Detectd) Disposition Clinical Impression: QUINCY (acute kidney injury), UTI (urinary tract infection), Septic shock, Hyperkalemia, Lactic acidosis, Acute respiratory failure Disposition: ADMITTED IP TO THIS HOSP Condition: Critical Procedures - [place] Protocol (Time Out) Procedure Performed:: Femoral central line Performing Provider: Louise Coleman Nurse: Roseline Avilez Patient Identification (2 identifiers required): Chart, Verbal, Arm Band, Name, Birthdate Patient/Legal Jive Developer has Confirmed: Identity, Site, Procedure, Consent Site: left groin Site Marked: Yes Site Verified With Patient/Guardian: Yes - Intubation Laryngoscope: Calvin Size: 3 ET Tube Size: 7.5 ET Tube Uncuffed: No Tube Secured Location: lips (23 approximately at the lips this was withdrawn approximately 2 cm) Tube Placement Confirmation: visualized tube passing through cords, equal breath sounds bilaterally, no breath sounds over epigastrium, confirmation by capnometry Patient Tolerated Procedure: well Intubation Complications: none
--- NOTE | 2021-10-11 18:37 | XR ---
EXAMINATION TYPE: XR chest 1V confirm line [place] DATE OF EXAM: 10/11/2021 6:11 PM COMPARISON: Chest radiographs from 10/12/2019 TECHNIQUE: XR chest 1V confirm line [place] Frontal view of the chest. CLINICAL INDICATION:Female, 81 years old with history of Intubation; FINDINGS: Lungs/Pleura: There is no evidence of pleural effusion, focal consolidation, or pneumothorax. Pulmonary vascularity: Unremarkable. Heart/mediastinum: Cardiomediastinal silhouette is enlarged and stable. Two lead cardiac conduction device overlying the left hemithorax with lead tips projecting over the right ventricle and right atr ium. Musculoskeletal: No acute osseous pathology. Lines/Tubes: Endotracheal tube with distal tip 1.1 cm above the ned IMPRESSION: Endotracheal tube 1.1 cm above the ned, consider retraction 1-2 cm for optimal placement.
[2021-10-11 18:42] LABS: Glucose,Whole Blood 126 mg/dL (75-99)
[2021-10-11 19:00] LABS: ABG Base Excess -25.5 mmol/L; ABG PO2 >400 mmHg (83-108); ABG TCO2 6 mmol/L (19-24); Allen Test Performed? Yes
[2021-10-11] MEDS ORDERED: CALCIUM CHLORIDE 1 GM in SODIUM CHLORIDE 0.9% 50 ML IVPB ONE (19:02)
[2021-10-11] MEDS ORDERED: FUROSEMIDE 10 MG/ML 10 ML VIAL IV STA (19:02)
[2021-10-11 19:24] LABS: Glucose,Whole Blood 186 mg/dL (75-99)
[2021-10-11 19:26] LABS: ABG HCO3 5 mmol/L (21-25); ABG PCO2 18 mmHg (35-45); ABG PH 7.05 (7.35-7.45)
[2021-10-11] MEDS ORDERED: ATROPINE OPHTH SOLN 1% 5ML BTL SUBLINGUAL PRN (19:44)
[2021-10-11] MEDS ORDERED: MORPHINE SULFATE 4 MG/ML SYRINGE IV PRN (19:44)
[2021-10-11] MEDS ORDERED: MORPHINE SULFATE (100 MG/2 ML) 100 MG in SODIUM CHLORIDE 0.9% 100 ML IV SCH (19:45)
[2021-10-11] MEDS ORDERED: SCOPOLAMINE 1 MG/72 HR PATCH TRANSDERM SCH (19:45)
[2021-10-11] MEDS ORDERED: WARFARIN 2.5 MG TAB PO SCH (21:00)
[2021-10-12 01:14] VITALS: BP 47/24; PULSE 70; RESP 10
[2021-10-12] MEDS ORDERED: VITAMIN E (DL,TOCOPHERYL ACET) 400 UNIT (180 MG) CAP PO SCH (09:00)
--- NOTE | 2021-10-12 13:55 | P.DS ---
Providers Date of admission: 10/11/21 13:05 Expected date of discharge: 10/12/21 Attending physician: Tori Barney Consults: 10/11/21 13:05 Consult Physician Stat Consulting Provider: Reji Mayfield Consult Reason/Comments: acute encephalopathy, hyperkalemia, rafiq, uti with septic shock Do you want consulting provider notified?: Already Contacted Consult Physician Urgent Consulting Provider: Yanique Georges Consult Reason/Comments: rafiq, hyperkalemia Do you want consulting provider notified?: Yes 10/11/21 17:52 Consult Physician Routine Consulting Provider: Annelise Robb Consult Reason/Comments: sepsis Do you want consulting provider notified?: Yes 10/11/21 19:10 Consult Physician Stat Consulting Provider: Denzel Cortes Consult Reason/Comments: dialysis Do you want consulting provider notified?: Already Contacted Primary care physician: Miranda Thompson [facility] Course: Diagnosis on discharge: Sepsis, with septic shock, as evidenced by urinary tract infection, leukocytosis, hypotension, and elevated lactic acid. Acute renal failure, likely related to hypotension, prerenal azotemia and acute tubular necrosis Severe hyperkalemia Severe metabolic acidosis Underlying history of atrial fibrillation Underlying history of hypertension Underlying history of congestive heart failure Underlying history of diabetes mellitus Previous history of pacemaker placement for bradycardia Previous history of coughing 19 infection Previous history of stroke Previous history of osteoarthritis. Hospital course: Moriah Tong, is an 81-year-old female, patient of Dr Thompson, who presented to [facility] emergency room with a chief complaint of worsening mental status poor oral intake vomiting and diarrhea. Patient has a known history of recurrent urinary tract infection, when she started feeling sick, her son started giving her antibiotic that she had at home however her co ndition continued to worsen and he decided to bring her to emergency room. He was evaluated in the emergency room vital examination on presentation revealed a temperature of 96.2 pulse 66 respiration 18 blood pressure 72/41 pulse ox 100% on room air Laboratory data revealed a white blood count of 14.7 hemoglobin 10.1 platelet count 292 sodium 135 potassium 9.4 chloride 103 CO2 7 BUN 113 creatinine 7.33 lactic acid was elevated at 7.8, urine analysis revealed evidence of urinary tract infection stool occult blood was negative, COVID-19 was negative. Testing in the emergency room revealed chest x-ray done in the emergency room revealed evidence of cardiomegaly without acute pulmonary process, computed tomography scan of the brain revealed chronic small vessel ischemic changes, EKG revealed electronic ventricular pacemaker with ST elevation in anterior leads. Patient was admitted to ICU for further evaluation and treatment, she was given IV fluid boluses in the emergency room and was started on norepinephrine for blood pressure support, she was also given 1 dose of IV Rocephin, and was also given bicarb IV. 10/13/2019 patient was admitted to intensive care unit, per her son in emergency room patient was a full code, patient had a cardiac arrest and was intubated and started on mechanical ventilation, further communication with family was done and patient CODE STATUS was changed to comfort care only, she was extubated at 08:45 p.m. patient at 1:20 AM on 10/12/2021 Patient Condition at Discharge: Critical Plan - Discharge Summary New Discharge Prescriptions: No Action Atorvastatin [Lipitor] 10 mg PO HS tab Montelukast [Singulair] 10 mg PO HS #30 tab Vitamin E (Dl,Tocopheryl Acet) [Vitamin E (400 Iu = 180 mg)] 400 unit PO DAILY metFORMIN HCL 500 mg PO TID glipiZIDE [Glucotrol] 10 mg PO AC-BID Warfarin Sodium 2.5 mg PO HS Ondansetron [Zofran] 4 mg PO Q8HR PRN PRN Reason: Nausea Methenamine Hippurate [Hiprex] 1 gm PO BID Losartan [Cozaar] 50 mg PO DIRECTED Cranberry 1680mg 1,680 mg PO DAILY Magnesium 250 mg PO HS Ferrous Sulfate [Iron (65 MG Elemental)] 325 mg PO BID HYDROcodone/APAP 7.5-325MG [Hubbell 7.5-325] 1 tab PO TID PRN PRN Reason: Pain Furosemide [Lasix] 40 mg PO DAILY Carvedilol [Coreg] 25 mg PO BID Allopurinol [Zyloprim] 100 mg PO BID Lactulose [Constulose] 10 gm PO BID PRN PRN Reason: Constipation Discharge Medication List Atorvastatin [Lipitor] 10 mg PO HS tab 05/11/17 [Rx] Montelukast [Singulair] 10 mg PO HS #30 tab 02/03/19 [Rx] Ferrous Sulfate [Iron (65 MG Elemental)] 325 mg PO BID 06/15/21 [History] Magnesium 250 mg PO HS 06/15/21 [History] Vitamin E (Dl,Tocopheryl Acet) [Vitamin E (400 Iu = 180 mg)] 400 unit PO DAILY 06/15/21 [History] glipiZIDE [Glucotrol] 10 mg PO AC-BID 06/15/21 [History] metFORMIN HCL 500 mg PO TID 06/15/21 [History] Allopurinol [Zyloprim] 100 mg PO BID 10/11/21 [History] Carvedilol [Coreg] 25 mg PO BID 10/11/21 [History] Cranberry 1680mg 1,680 mg PO DAILY 10/11/21 [History] Furosemide [Lasix] 40 mg PO DAILY 10/11/21 [History] HYDROcodone/APAP 7.5-325MG [Hubbell 7.5-325] 1 tab PO TID PRN 10/11/21 [History] Lactulose [Constulose] 10 gm PO BID PRN 10/11/21 [History] Losartan [Cozaar] 50 mg PO DIRECTED 10/11/21 [History] Methenamine Hippurate [Hiprex] 1 gm PO BID 10/11/21 [History] Ondansetron [Zofran] 4 mg PO Q8HR PRN 10/11/21 [History] Warfarin Sodium 2.5 mg PO HS 10/11/21 [History] Follow up Appointment(s)/Referral(s): Miranda Thompson MD [Primary Care Provider] - 1-2 days Discharge Disposition: - Preliminary Cause of Preliminary Cause of : sepsis
== END 2021-10-12 05:14 | disposition expired | DRG 871 ==
LOC: EC 09:35 → 2SICU 13:05
PROVIDERS: ADMIT Internal Medicine; ATTEND Internal Medicine
PROC: 5A1935Z Respiratory Ventilation, Less than 24 Consecutive Hours (ICD-10-PCS; principal; 2021-10-11)
PROC: 3E043XZ Introduction of Vasopressor into Central Vein, Percutaneous Approach (ICD-10-PCS; principal; 2021-10-11)
PROC: 0BH17EZ Insertion of Endotracheal Airway into Trachea, Via Natural or Artificial Opening (ICD-10-PCS; 2021-10-11)
PROC: 04HL33Z Insertion of Infusion Device into Left Femoral Artery, Percutaneous Approach (ICD-10-PCS; 2021-10-11)
DX: A41.9 Sepsis, unspecified organism (principal); N17.0 Acute kidney failure with tubular necrosis; R65.21 Severe sepsis with septic shock; J96.00 Acute respiratory failure, unspecified whether with hypoxia or hypercapnia; E87.2 Acidosis; G93.40 Encephalopathy, unspecified; N13.6 Pyonephrosis; I46.9 Cardiac arrest, cause unspecified; I11.0 Hypertensive heart disease with heart failure; I27.20 Pulmonary hypertension, unspecified; I50.9 Heart failure, unspecified; E11.9 Type 2 diabetes mellitus without complications; E78.5 Hyperlipidemia, unspecified; E87.5 Hyperkalemia; F32.A Depression, unspecified; I48.91 Unspecified atrial fibrillation; J45.909 Unspecified asthma, uncomplicated; Z20.822 Contact with and (suspected) exposure to COVID-19; Z79.01 Long term (current) use of anticoagulants; I49.8 Other specified cardiac arrhythmias; Z51.5 Encounter for palliative care; Z66 Do not resuscitate; Z79.84 Long term (current) use of oral hypoglycemic drugs; Z79.899 Other long term (current) drug therapy; Z82.49 Family history of ischemic heart disease and other diseases of the circulatory system; Z86.16 Personal history of COVID-19; Z86.73 Personal history of transient ischemic attack (TIA), and cerebral infarction without residual deficits; Z86.74 Personal history of sudden cardiac arrest; Z87.440 Personal history of urinary (tract) infections; Z87.442 Personal history of urinary calculi; Z87.891 Personal history of nicotine dependence; Z95.0 Presence of cardiac pacemaker; Z96.653 Presence of artificial knee joint, bilateral; Z88.7 Allergy status to serum and vaccine; Z88.0 Allergy status to penicillin; Z88.6 Allergy status to analgesic agent; Z91.012 Allergy to eggs; Z91.02 Food additives allergy status
CPT/HCPCS: 36415; 36556; 36600; 51702; 70450; 71046; 76770; 80048; 80053; 81001; 82272; 82805; 83605; 83690; 84484; 85025; 85610; 85730; 87040; 87070; 87077; 87086; 87186; 87205; 87635; 92950; 93005; 94002; 94640; 96361; 96365; 96366; 96375; 99291